=== PATIENT | female | born 1930 | race Caucasian/White ===

== ENCOUNTER 2017-08-12 11:46 | Inpatient (IN) | payer MEDICARE, MEDICAID ==
[~2017-08-12] VITALS: Ht 152.4 cm; Wt 62.6 kg
[~2017-08-12 11:46] MED LIST: ALEVE220 MG PO; AMLODIPINE BES10 MG PO; ASPIRIN 81MG TA81 MG PO; ATORVASTATIN CA20 MG PO; BISOPROLOL 5MG T5 MG PO; BUSPAR 5MG TAB5 MG PO; CARAFATE1 GM PO; CITALOPRAM20 MG PO; CITALOPRAM40 M1 PO; CLARITIN 10MG T10 MG PO; CLEOCIN HCL300 MG PO; Compazine10 MG PO; DOXYCYCLINE100 M1 PO; FLAGYL500 MG PO; FUROSEMIDE 40MG40 MG PO; FUROSEMIDE40 MG PO; HYDROCODONE BIT1 T28 PO; INVANZ1 G1 IM; K-DUR 20MEQ TA20 MEQ PO; KAPIDEX60 MG PO; LASIX40 MG PO; LISINOPRIL 10MG10 MG PO; LISINOPRIL2.5 MG PO; LORAZEPAM0.5 MG PO; LORAZEPAM0.5 MG/TAB PO; LORAZEPAM1 MG/TABLE PO; LORTAB 500 MG-11 TAB PO; LOVENOX 4040 MG/0.1 SC; MACROBID 100MG100 M1 PO; MEDROL 4MG. DOSE4 MG PO; MIRALAX17 GM PO; MULTI VITAMINS1 TAB PO; NAPROSYN 500MG500 MG PO; NEXIUM20 MG PO; NEXIUM40 MG PO; NITROFURANTOIN50 M1 PO; NITROGLYCERIN0.4 MG SL; NORCO 325 MG-101 TAB PO; NYSTATIN 1100000 UNI PO; OMEPRAZOLE20 MG PO; OXYBUTYNIN CHLO10 MG PO; OXYBUTYNIN5 MG PO; PERCOCET 325 MG1 TA3 PO; POTASSIUM CHLO10 ME3 PO; POTASSIUM CHLO20 ME2 PO; PREDNISONE 10MG10 MG PO; PRISTIQ50 MG PO; SKELAXIN 800MG800 MG PO; VICODIN HP 6601 TAB PO; XANAX0.25 MG PO; ZOFRAN ODT8 MG PO
--- NOTE | 2017-08-12 12:15 | Urgent Treatment Center Report ---
History of Present Issue Date/Time Seen by Provider 08/12/17 1211 Visit Reason Pt arrived:Wheelchair Presenting Problem:H/A AND LEFT EAR PAIN Location if Accident: Onset of symptoms date/time:/ or onset unknown for:MEDICAL HX UNKNOWN Have you (or family members/close friends) recently traveled outside the [place]? N If Yes, where/when: Have you had exposure to infectious disease within the past month? TB? Other? Specify: Here w/ daughter. c/o headache and left ear pain today but daughter concerned about generalized weakness over the last week "or so" worsening in the lst 2-3 days. No longer wanting to get out of bed, eating "next to nothing". Occasional cough "using her neb when she wants it. Dysuria once last week "nothing abnormal " pt reports. fould smelling urine but also reported as "typical" per pt. No treatment prior to arrival. [place] too weak to see PCP yesterday. Source patient, family Exam Limitations no limitations ALLERGIES Coded Allergies: Penicillins (I-HIVES 04/20/17) Sulfa (Sulfonamide Antibiotics) (NA-NAUSEA/VOMITING 04/20/17) cephalexin (From KEFLEX) (NA-NAUSEA/VOMITING 04/20/17) ciprofloxacin (From CIPRO) (NA-NAUSEA/VOMITING 04/20/17) codeine (NA-NAUSEA/VOMITING 04/20/17) fexofenadine (From SALVADOR) (NA-NAUSEA/VOMITING 04/20/17) morphine (CONFUSION 04/20/17) promethazine (From PHENERGAN) (04/20/17) Home Medications Active Scripts BISOPROLOL FUMARATE (Bisoprolol 5MG) 10 MG PO DAILY #30 TAB Ref 6 Prov: 04/21/17 Amlodipine Besylate (Amlodipine Besylate) 10 MG PO DAILY #30 TAB Ref 6 Prov: 04/21/17 LISINOPRIL (Lisinopril) 10 MG PO DAILY #30 TAB Ref 5 Prov: 05/11/14 Citalopram Hydrobromide (Citalopram HBr) 40 MG PO DAILY #30 TAB Ref 5 Prov: 05/11/14 Sucralfate (Carafate) 1 GM PO AC #90 TAB Ref 1 Prov: 06/24/15 Furosemide (Furosemide 40MG Tablet) 40 MG PO MWF PRN DIURETIC 30 Days Ref 5 Prov: 04/09/16 Reported Medications Ondansetron (Zofran 8MG Odt) 8 MG PO Q8HP NITROGLYCERIN (Nitrostat) 0.4 MG SL [id number] PRN CHEST PAIN POTASSIUM CHL (Potassium Chloride) 1 TABS PO MWF Dexlansoprazole (Dexilant) 60 MG PO DAILY Loratadine (Claritin 10MG) 10 MG PO DAILY OXYCODONE 7.5MG/[id number] (Oxycodon-Acetaminophen 7.5-325) 1 TAB PO Q6HP PRN PAIN MANAGEMENT Lorazepam (Lorazepam 1MG) 1 MG PO BID History Medical History General CAD? Yes Angina: Yes [place]: Yes Hypertension? Yes Hyperlipidemia? Yes CHF? No DVT? Yes PE? No COPD? No Asthma? Yes Anemia? No GERD? Yes Gastric ulcers? No GI Bleed? No Hernia? Yes Thyroid Problems? No Hypothyroidism? No CVA? Yes Seizures? No Diabetes? No Insulin Dependent: No Insulin Pump: No Home FSBS? No Renal Insuffiency? No UTI? Yes Stones? No BPH? No GB Disease: Yes Nephritic Syndrome? No Asplenia? No Hepatitis? No Sickle Cell Disease? No Arthritis? Yes Migraines? Yes Cataracts? Yes Glaucoma? No MRSA? Yes HIV? No TB? No Anxiety? Yes Depression? 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 HX DT/Tetanus 1-4 Years Ago Flu 2015- Flu Season Pneumonia Received In Past Surgical Hx Previous Surgery?Y BACK SURGERY JOHN[place] KNEE REPLACEMENT CHOLECYSTECTOMY Appendix HEART CATH 2008 ROTATOR CUFF REPAIR LEFT CATARACT REMOVAL JOHNATHON Spleen REMOVED OOPHRECTOMY/SALPINGECTIOM BILAT HIP BACK-COMPRESSION FX Family History Family HX Diabetes No CAD Yes Hypertension Yes Hyperlipidemia Yes Cancer Yes TB No Social History Smoking Hx Smoker: Never Smoker Tobacco: No Alcohol Alcohol: No Review of Systems All Other Systems Reviewed and Negative Constitutional see HPI, denies fever ENT see HPI, nose discharge. denies: ear discharge, nose congestion, throat pain. Respiratory see HPI, denies shortness of breath, denies wheezing Cardiovascular denies chest pain Gastrointestinal denies no symptoms reported Genitourinary see HPI. Musculoskeletal other ("I just hurt all over") Skin denies rash Psychiatric/Neurological see HPI Physical Exam Vital Signs Vital Signs Date Time Temp Pulse Resp B/P Pulse O2 O2 Flow FiO2 Ox Delivery Rate 08/12 1154 97.8 77 29 167/62 96 General Appearance no apparent distress, appears weak and fatigued, seated in wheelchair Ear, Nose, Throat normal ENT inspection (x/ hearing aid right ear), difficulty hearing Respiratory Status Yes: chest symmetrical. No: respiratory distress, productive cough, non productive cough. Lung Sounds anterior: lungs clear. posterior: lungs clear. bilateral: lungs clear. Cardiovascular regular rate/rhythm, no peripheral edema, no murmur Neurologic alert Mental status normal mood/affect Skin normal color, warm/dry Lymphatic no adenopathy Medical Decision Making LABS/Meds/Orders Pt receiving controlled substance in ED? No Progress [facility] Progress Notes Date 08/12/17 Time 1230 Comment Spoke to pt and daughter about concerning symptoms and need for more extensive work-up. Daughter agreeable to transfer to ER. report called to ZULAY Aguayo MD. Room 6 available. Departure Departure Time of Disposition 1231 Disposition Still a Patient Clinical Impression Primary Impression: Generalized weakness Condition STABLE Comments Transfer to ER for full evaluation at 1236
--- NOTE | 2017-08-12 12:15 | Urgent Treatment Center Report ---
History of Present Issue Date/Time Seen by Provider 08/12/17 1211 Visit Reason Pt arrived:Wheelchair Presenting Problem:H/A AND LEFT EAR PAIN Location if Accident: Onset of symptoms date/time:/ or onset unknown for:MEDICAL HX UNKNOWN Have you (or family members/close friends) recently traveled outside the [place]? N If Yes, where/when: Have you had exposure to infectious disease within the past month? TB? Other? Specify: Here w/ daughter. c/o headache and left ear pain today but daughter concerned about generalized weakness over the last week "or so" worsening in the lst 2-3 days. No longer wanting to get out of bed, eating "next to nothing". Occasional cough "using her neb when she wants it. Dysuria once last week "nothing abnormal " pt reports. fould smelling urine but also reported as "typical" per pt. No treatment prior to arrival. [place] too weak to see PCP yesterday. Source patient, family Exam Limitations no limitations ALLERGIES Coded Allergies: Penicillins (I-HIVES 04/20/17) Sulfa (Sulfonamide Antibiotics) (NA-NAUSEA/VOMITING 04/20/17) cephalexin (From KEFLEX) (NA-NAUSEA/VOMITING 04/20/17) ciprofloxacin (From CIPRO) (NA-NAUSEA/VOMITING 04/20/17) codeine (NA-NAUSEA/VOMITING 04/20/17) fexofenadine (From SALVADOR) (NA-NAUSEA/VOMITING 04/20/17) morphine (CONFUSION 04/20/17) promethazine (From PHENERGAN) (04/20/17) Home Medications Active Scripts BISOPROLOL FUMARATE (Bisoprolol 5MG) 10 MG PO DAILY #30 TAB Ref 6 Prov: 04/21/17 Amlodipine Besylate (Amlodipine Besylate) 10 MG PO DAILY #30 TAB Ref 6 Prov: 04/21/17 LISINOPRIL (Lisinopril) 10 MG PO DAILY #30 TAB Ref 5 Prov: 05/11/14 Citalopram Hydrobromide (Citalopram HBr) 40 MG PO DAILY #30 TAB Ref 5 Prov: 05/11/14 Sucralfate (Carafate) 1 GM PO AC #90 TAB Ref 1 Prov: 06/24/15 Furosemide (Furosemide 40MG Tablet) 40 MG PO MWF PRN DIURETIC 30 Days Ref 5 Prov: 04/09/16 Reported Medications Ondansetron (Zofran 8MG Odt) 8 MG PO Q8HP NITROGLYCERIN (Nitrostat) 0.4 MG SL [id number] PRN CHEST PAIN POTASSIUM CHL (Potassium Chloride) 1 TABS PO MWF Dexlansoprazole (Dexilant) 60 MG PO DAILY Loratadine (Claritin 10MG) 10 MG PO DAILY OXYCODONE 7.5MG/[id number] (Oxycodon-Acetaminophen 7.5-325) 1 TAB PO Q6HP PRN PAIN MANAGEMENT Lorazepam (Lorazepam 1MG) 1 MG PO BID History Medical History General CAD? Yes Angina: Yes [place]: Yes Hypertension? Yes Hyperlipidemia? Yes CHF? No DVT? Yes PE? No COPD? No Asthma? Yes Anemia? No GERD? Yes Gastric ulcers? No GI Bleed? No Hernia? Yes Thyroid Problems? No Hypothyroidism? No CVA? Yes Seizures? No Diabetes? No Insulin Dependent: No Insulin Pump: No Home FSBS? No Renal Insuffiency? No UTI? Yes Stones? No BPH? No GB Disease: Yes Nephritic Syndrome? No Asplenia? No Hepatitis? No Sickle Cell Disease? No Arthritis? Yes Migraines? Yes Cataracts? Yes Glaucoma? No MRSA? Yes HIV? No TB? No Anxiety? Yes Depression? 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 HX DT/Tetanus 1-4 Years Ago Flu 2015- Flu Season Pneumonia Received In Past Surgical Hx Previous Surgery?Y BACK SURGERY [facility] KNEE REPLACEMENT CHOLECYSTECTOMY Appendix HEART CATH 2008 ROTATOR CUFF REPAIR LEFT CATARACT REMOVAL JOHNATHON Spleen REMOVED OOPHRECTOMY/SALPINGECTIOM BILAT HIP BACK-COMPRESSION FX Family History Family HX Diabetes No CAD Yes Hypertension Yes Hyperlipidemia Yes Cancer Yes TB No Social History Smoking Hx Smoker: Never Smoker Tobacco: No Alcohol Alcohol: No Review of Systems All Other Systems Reviewed and Negative Constitutional see HPI, denies fever ENT see HPI, nose discharge. denies: ear discharge, nose congestion, throat pain. Respiratory see HPI, denies shortness of breath, denies wheezing Cardiovascular denies chest pain Gastrointestinal denies no symptoms reported Genitourinary see HPI. Musculoskeletal other ("I just hurt all over") Skin denies rash Psychiatric/Neurological see HPI Physical Exam Vital Signs Vital Signs Date Time Temp Pulse Resp B/P Pulse O2 O2 Flow FiO2 Ox Delivery Rate 08/12 1154 97.8 77 29 167/62 96 General Appearance no apparent distress, appears weak and fatigued, seated in wheelchair Ear, Nose, Throat normal ENT inspection (x/ hearing aid right ear), difficulty hearing Respiratory Status Yes: chest symmetrical. No: respiratory distress, productive cough, non productive cough. Lung Sounds anterior: lungs clear. posterior: lungs clear. bilateral: lungs clear. Cardiovascular regular rate/rhythm, no peripheral edema, no murmur Neurologic alert Mental status normal mood/affect Skin normal color, warm/dry Lymphatic no adenopathy Medical Decision Making LABS/Meds/Orders Pt receiving controlled substance in ED? No Progress [facility] Progress Notes Date 08/12/17 Time 1230 Comment Spoke to pt and daughter about concerning symptoms and need for more extensive work-up. Daughter agreeable to transfer to ER. report called to ZLUAY Aguayo MD. Room 6 available. Departure Departure Time of Disposition 1231 Disposition Still a Patient Clinical Impression Primary Impression: Generalized weakness Condition STABLE Comments Transfer to ER for full evaluation at 1236
[2017-08-12 12:38] VITALS: BP 153/65
--- NOTE | 2017-08-12 12:55 | Emergency Room Report ---
History of Present Illness Time Seen by 1250 Presenting Problem in Triage Pt arrived:Walked Presenting Problem:COLD SYMPTOMS,. 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 N Clinical Suspician of Infection? N Mental Status: 1 - Regular (Normal Baseline) Sepsis Risk:Low Sepsis Risk Have you (or family members/close friends) recently traveled outside the [place]? N If Yes, where/when: Have you had exposure to infectious disease within the past month? TB? Other? Specify: 87 years old white female with chronic complaining of weakness. She was seen earlier today the urgent care because of left earache. She expressed her complain of ongoing weakness chronic nausea and decreased appetite. She was brought to the main ED for workup. She denies having chest pain abdominal pain vomiting diarrhea hematemesis coffee-ground emesis and melanotic stool. She has a baseline shortness of air. She had a pacemaker placed 2-3 months ago and they thought it would increase her stamina but she remained to be weak like today. Source patient, RN notes reviewed, family, old records Exam Limitations no limitations ALLERGIES Coded Allergies: Penicillins (I-HIVES 04/20/17) Sulfa (Sulfonamide Antibiotics) (NA-NAUSEA/VOMITING 04/20/17) cephalexin (From KEFLEX) (NA-NAUSEA/VOMITING 04/20/17) ciprofloxacin (From CIPRO) (NA-NAUSEA/VOMITING 04/20/17) codeine (NA-NAUSEA/VOMITING 04/20/17) fexofenadine (From SALVADOR) (NA-NAUSEA/VOMITING 04/20/17) morphine (CONFUSION 04/20/17) promethazine (From PHENERGAN) (04/20/17) Home Medications Active Scripts BISOPROLOL FUMARATE (Bisoprolol 5MG) 10 MG PO DAILY #30 TAB Ref 6 Prov: 04/21/17 Amlodipine Besylate (Amlodipine Besylate) 10 MG PO DAILY #30 TAB Ref 6 Prov: 04/21/17 LISINOPRIL (Lisinopril) 10 MG PO DAILY #30 TAB Ref 5 Prov: 05/11/14 Citalopram Hydrobromide (Citalopram HBr) 40 MG PO DAILY #30 TAB Ref 5 Prov: 05/11/14 Sucralfate (Carafate) 1 GM PO AC #90 TAB Ref 1 Prov: 06/24/15 Furosemide (Furosemide 40MG Tablet) 40 MG PO MWF PRN DIURETIC 30 Days Ref 5 Prov: 04/09/16 Reported Medications Ondansetron (Zofran 8MG Odt) 8 MG PO Q8HP NITROGLYCERIN (Nitrostat) 0.4 MG SL [id number] PRN CHEST PAIN POTASSIUM CHL (Potassium Chloride) 1 TABS PO MWF Dexlansoprazole (Dexilant) 60 MG PO DAILY Loratadine (Claritin 10MG) 10 MG PO DAILY OXYCODONE 7.5MG/[id number] (Oxycodon-Acetaminophen 7.5-325) 1 TAB PO Q6HP PRN PAIN MANAGEMENT Lorazepam (Lorazepam 1MG) 1 MG PO BID History Medical History General CAD? Yes Angina: Yes [place]: Yes Hypertension? Yes Hyperlipidemia? Yes CHF? No DVT? Yes PE? No COPD? No Asthma? Yes Anemia? No GERD? Yes Gastric ulcers? No GI Bleed? No Hernia? Yes Thyroid Problems? No Hypothyroidism? No CVA? Yes Seizures? No Diabetes? No Insulin Dependent: No Insulin Pump: No Home FSBS? No Renal Insuffiency? No End Stage Renal Disease? No UTI? Yes Stones? No BPH? No GB Disease: Yes Nephritic Syndrome? No Asplenia? No Hepatitis? No Sickle Cell Disease? No Arthritis? Yes Migraines? Yes Cataracts? Yes Glaucoma? No MRSA? Yes HIV? No TB? No Anxiety? Yes Depression? 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 Hx Ped.Immunizations UTD Yes DT/Tetanus 1-4 Years Ago Flu 2015-FSN Pneumonia Received In Past Surgical Hx Previous Surgery?Y BACK SURGERY JOHN[place]ON KNEE REPLACEMENT CHOLECYSTECTOMY Appendix HEART CATH 2009 ROTATOR CUFF REPAIR LEFT CATARACT REMOVAL JOHNATHON Spleen REMOVED OOPHRECTOMY/SALPINGECTIOM BILAT HIP BACK-COMPRESSION FX Family History Family Hx Diabetes No CAD Yes Hypertension Yes Hyperlipidemia Yes Cancer Yes TB No Social History Smoking Hx Smoker: Former Smoker Tobacco: No Type Cigarettes Are you/the child exposed to second-hand smoke: No Alcohol Alcohol: No Review of Systems All Other Systems Reviewed and Negative Constitutional denies see HPI Eyes no symptoms reported ENT no symptoms reported. Respiratory see HPI, shortness of breath (base line ) Cardiovascular no symptoms reported Gastrointestinal see HPI, nausea Genitourinary no symptoms reported. Musculoskeletal no symptoms reported Skin no symptoms reported Psychiatric/Neurological no symptoms reported Physical Exam Vital Signs Vital Signs Date Time Temp Pulse Resp B/P Pulse O2 O2 Flow FiO2 Ox Delivery Rate 08/12 1634 72 18 157/72 96 08/12 1327 74 18 147/68 96 08/12 1238 98.3 75 18 153/65 96 08/12 1154 97.8 77 29 167/62 96 She is ambulating with assistance. (Fam DAVIS,[facility]) - WBC >12,000 or <4,000 or 10% bands? 2 or more SIRS Criteria Met? B/P:153/65 MAP:94 Creatinine >2.0? UA output<0.5ml/kg/hr for 2 hrs? Platelet count >100,000? Lactate >2.0mmol/1? INR >1.2 or PTT > than 60 sec? Evidence of Organ Dysfunction? Provider documented clinical suspician of infection? N Sepsis Criteria Count: 0 Sepsis Risk: Low Sepsis Risk General Appearance normal appearance, WD/WN, no apparent distress Eye Exam - bilateral eye normal exam, bilateral eye PERRL, bilateral eye EOMI Ear, Nose, Throat hearing grossly normal, normal ENT inspection Neck normal inspection, non-tender, supple, full range of motion Respiratory Status Yes: trachea midline, chest symmetrical, non tender chest. No: respiratory distress. Lung Sounds bilateral: normal breath sounds, lungs clear. Cardiovascular normal exam, regular rate/rhythm, no peripheral edema, no gallop, no JVD, no murmur, no rub, normal peripheral pulses Gastrointestinal normal bowel sounds, normal exam, non tender, soft, no organomegaly, no guarding, no rebound, the patient's has well healed scars of prior gallbladder and a splenectomy surgery. 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 No Results/Orders Laboratory Tests 08/12/17 1300: Urine Color YELLOW, Urine Appearance CLEAR, Urine pH 6.5, Ur Specific [place] 1.010, Urine Protein TRACE H, Urine Ketones NEGATIVE, Urine Blood 2+ H, Urine Nitrate NEGATIVE, Urine Bilirubin NEGATIVE, Urine Urobilinogen 2.0, Ur Leukocyte Esterase NEGATIVE, Urine RBC OCC, Urine WBC NONE, Ur Squamous Epith Cells OCC, Urine Bacteria NONE, Urine Glucose NEGATIVE 08/12/17 1255: Sodium 140, Potassium 4.3, Chloride 103, Carbon Dioxide 31, BUN 13, Creatinine 0.7, Estimated Creat Clear 52, Estimated GFR (MDRD) 79, Glucose 93, Calcium 8.9, Total Bilirubin 0.7, AST 15, ALT 17, Alkaline Phosphatase 87, Troponin I 0.02, B -Natriuretic Peptide 1740 H, Total Protein 7.0, Albumin 3.1 L, Globulin 3.9 H , Albumin/Globulin Ratio 0.8 L, Lipase 83, WBC 7.8, RBC 3.86 L, Hgb 12.8, Hct 39.4, MCV 101.9 H, RDW 13.1, Plt Count 273, MPV 8.2, Gran % 56.8, Gran # 4.4, Lymphocytes % 24.4, Monocytes % 11.2 H, Eosinophils % 6.3, Basophils % 1.5, Lymphocytes # 1.9, Monocytes # 0.9, Eosinophils # 0.5 H, Basophils # 0.1, PUBS MCHC 32.6, MCH 33.2 H 08/12/17 1250: Stool Occult Blood NEGATIVE Current Medication Orders Sig/Dorys Start time Last Medication Dose Route Stop Time Status Admin Bisoprolol Fumarate 10 MG DAILY 08/13 0900 AC PO Furosemide 40 MG BID 08/12 2100 AC IV Lisinopril 10 MG BID 08/12 2100 AC PO Potassium Chloride 0 .STK-MED ONE 08/12 1618 DC PO Potassium Chloride 20 MEQ DAILY 08/12 1559 AC 08/12 PO 1619 Iopamidol 75 ML ONCE ONE 08/12 1430 DC 08/12 IV 08/12 1431 1426 Sodium Chloride 10 ML ONCE ONE 08/12 1430 DC 08/12 IV 08/12 1431 1426 Diatrizoate Meglum/ 30 ML ONCE ONE 08/12 1345 DC 08/12 Diatrizoate Sod PO 08/12 1346 1336 Diatrizoate Meglum/ 0 .STK-MED ONE 08/12 1331 DC Diatrizoate Sod .ROUTE Orders Procedure Date/time Status BRAIN NATRIURETIC PEPTIDE 08/13 1600 Active BASIC METABOLIC PROFILE 08/13 1600 Active DIET-NOTHING BY MOUTH 08/12 D Active Decision to admit 08/12 1619 Active CHEST-AP VIEW ONLY 08/[address] ABD/PELVIS REQ 08/12 1327 Complete URINALYSIS/COMPLETE 08/12 1256 Complete 12 LEAD EKG-ACACIA (INITIAL) 08/12 1250 Active ELECTROCARDIOGRAM REQUEST 08/12 1249 Active TROPONIN I 08/12 1249 Complete STOOL OCCULT BLOOD 08/12 1249 Complete LIPASE 08/12 1249 Complete CBC WITH AUTO DIFF 08/12 124 Complete CHEM 12 PROFILE 08/12 1249 Complete BRAIN NATRIURETIC PEPTIDE 08/12 1249 Complete CM/EKG 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 Murphy, her electrocardiogram shows paced. She was admitted by Dr. Nath on April 09, 2016 because of similar symptoms. She underwent an EGD by H nonerosive gastritis. After obtaining a CT scan of the abdomen and pelvis the patient was found to have pulmonary vascular congestion and cardiomegaly and a RIGHT pleural effusion , her BNP was 1740. [address] Murphy her numerical control router operator who advised for admission and obtain a [address] Aggarwal for admission. 1630 Dr Jordan jawbone puller and accepted the patient for admission. Discharge Counseling Counseled pt/family regarding diagnosis, test results, medications/RX, home care, follow up needs Prescriptions Current Visit Scripts Metoclopramide Hcl (Reglan) 5 MG PO AC #28 TAB Ref 1 ED Critical Care Critical Care No at 1637
--- NOTE | 2017-08-12 12:55 | Emergency Room Report ---
History of Present Illness Time Seen by 1250 Presenting Problem in Triage Pt arrived:Walked Presenting Problem:COLD SYMPTOMS,. 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 N Clinical Suspician of Infection? N Mental Status: 1 - Regular (Normal Baseline) Sepsis Risk:Low Sepsis Risk Have you (or family members/close friends) recently traveled outside the [place]? N If Yes, where/when: Have you had exposure to infectious disease within the past month? TB? Other? Specify: 87 years old white female with chronic complaining of weakness. She was seen earlier today the urgent care because of left earache. She expressed her complain of ongoing weakness chronic nausea and decreased appetite. She was brought to the main ED for workup. She denies having chest pain abdominal pain vomiting diarrhea hematemesis coffee-ground emesis and melanotic stool. She has a baseline shortness of air. She had a pacemaker placed 2-3 months ago and they thought it would increase her stamina but she remained to be weak like today. Source patient, RN notes reviewed, family, old records Exam Limitations no limitations ALLERGIES Coded Allergies: Penicillins (I-HIVES 04/20/17) Sulfa (Sulfonamide Antibiotics) (NA-NAUSEA/VOMITING 04/20/17) cephalexin (From KEFLEX) (NA-NAUSEA/VOMITING 04/20/17) ciprofloxacin (From CIPRO) (NA-NAUSEA/VOMITING 04/20/17) codeine (NA-NAUSEA/VOMITING 04/20/17) fexofenadine (From SALVADOR) (NA-NAUSEA/VOMITING 04/20/17) morphine (CONFUSION 04/20/17) promethazine (From PHENERGAN) (04/20/17) Home Medications Active Scripts BISOPROLOL FUMARATE (Bisoprolol 5MG) 10 MG PO DAILY #30 TAB Ref 6 Prov: 04/21/17 Amlodipine Besylate (Amlodipine Besylate) 10 MG PO DAILY #30 TAB Ref 6 Prov: 04/21/17 LISINOPRIL (Lisinopril) 10 MG PO DAILY #30 TAB Ref 5 Prov: 05/11/14 Citalopram Hydrobromide (Citalopram HBr) 40 MG PO DAILY #30 TAB Ref 5 Prov: 05/11/14 Sucralfate (Carafate) 1 GM PO AC #90 TAB Ref 1 Prov: 06/24/15 Furosemide (Furosemide 40MG Tablet) 40 MG PO MWF PRN DIURETIC 30 Days Ref 5 Prov: 04/09/16 Reported Medications Ondansetron (Zofran 8MG Odt) 8 MG PO Q8HP NITROGLYCERIN (Nitrostat) 0.4 MG SL [id number] PRN CHEST PAIN POTASSIUM CHL (Potassium Chloride) 1 TABS PO MWF Dexlansoprazole (Dexilant) 60 MG PO DAILY Loratadine (Claritin 10MG) 10 MG PO DAILY OXYCODONE 7.5MG/[id number] (Oxycodon-Acetaminophen 7.5-325) 1 TAB PO Q6HP PRN PAIN MANAGEMENT Lorazepam (Lorazepam 1MG) 1 MG PO BID History Medical History General CAD? Yes Angina: Yes [place]: Yes Hypertension? Yes Hyperlipidemia? Yes CHF? No DVT? Yes PE? No COPD? No Asthma? Yes Anemia? No GERD? Yes Gastric ulcers? No GI Bleed? No Hernia? Yes Thyroid Problems? No Hypothyroidism? No CVA? Yes Seizures? No Diabetes? No Insulin Dependent: No Insulin Pump: No Home FSBS? No Renal Insuffiency? No End Stage Renal Disease? No UTI? Yes Stones? No BPH? No GB Disease: Yes Nephritic Syndrome? No Asplenia? No Hepatitis? No Sickle Cell Disease? No Arthritis? Yes Migraines? Yes Cataracts? Yes Glaucoma? No MRSA? Yes HIV? No TB? No Anxiety? Yes Depression? 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 Hx Ped.Immunizations UTD Yes DT/Tetanus 1-4 Years Ago Flu 2015-FSN Pneumonia Received In Past Surgical Hx Previous Surgery?Y BACK SURGERY JOHNATHON KNEE REPLACEMENT CHOLECYSTECTOMY Appendix HEART CATH 2009 ROTATOR CUFF REPAIR LEFT CATARACT REMOVAL JOHNATHON Spleen REMOVED OOPHRECTOMY/SALPINGECTIOM BILAT HIP BACK-COMPRESSION FX Family History Family Hx Diabetes No CAD Yes Hypertension Yes Hyperlipidemia Yes Cancer Yes TB No Social History Smoking Hx Smoker: Former Smoker Tobacco: No Type Cigarettes Are you/the child exposed to second-hand smoke: No Alcohol Alcohol: No Review of Systems All Other Systems Reviewed and Negative Constitutional denies see HPI Eyes no symptoms reported ENT no symptoms reported. Respiratory see HPI, shortness of breath (base line ) Cardiovascular no symptoms reported Gastrointestinal see HPI, nausea Genitourinary no symptoms reported. Musculoskeletal no symptoms reported Skin no symptoms reported Psychiatric/Neurological no symptoms reported Physical Exam Vital Signs Vital Signs Date Time Temp Pulse Resp B/P Pulse O2 O2 Flow FiO2 Ox Delivery Rate 08/12 1634 72 18 157/72 96 08/12 1327 74 18 147/68 96 08/12 1238 98.3 75 18 153/65 96 08/12 1154 97.8 77 29 167/62 96 She is ambulating with assistance. (Fam DAVIS,[facility]) - WBC >12,000 or <4,000 or 10% bands? 2 or more SIRS Criteria Met? B/P:153/65 MAP:94 Creatinine >2.0? UA output<0.5ml/kg/hr for 2 hrs? Platelet count >100,000? Lactate >2.0mmol/1? INR >1.2 or PTT > than 60 sec? Evidence of Organ Dysfunction? Provider documented clinical suspician of infection? N Sepsis Criteria Count: 0 Sepsis Risk: Low Sepsis Risk General Appearance normal appearance, WD/WN, no apparent distress Eye Exam - bilateral eye normal exam, bilateral eye PERRL, bilateral eye EOMI Ear, Nose, Throat hearing grossly normal, normal ENT inspection Neck normal inspection, non-tender, supple, full range of motion Respiratory Status Yes: trachea midline, chest symmetrical, non tender chest. No: respiratory distress. Lung Sounds bilateral: normal breath sounds, lungs clear. Cardiovascular normal exam, regular rate/rhythm, no peripheral edema, no gallop, no JVD, no murmur, no rub, normal peripheral pulses Gastrointestinal normal bowel sounds, normal exam, non tender, soft, no organomegaly, no guarding, no rebound, the patient's has well healed scars of prior gallbladder and a splenectomy surgery. abdomen is obese soft benign nontender no guarding no rigidity no rebound Back normal inspection, no CVA tenderness, no vertebral tenderness Extremities non-tender, normal range of motion, normal inspection Rectal normal exam Neurologic alert, supervisor channel process II-XII nml as tested, normal exam, oriented x 3 Reflexes Reflexes normal Yes Mental status normal mood/affect Skin intact, normal color, warm/dry Lymphatic no adenopathy Medical Decision Making LABS/Meds/Orders Pt receiving controlled substance in ED? No Results/Orders Laboratory Tests 08/12/17 1300: Urine Color YELLOW, Urine Appearance CLEAR, Urine pH 6.5, Ur Specific [place] 1.010, Urine Protein TRACE H, Urine Ketones NEGATIVE, Urine Blood 2+ H, Urine Nitrate NEGATIVE, Urine Bilirubin NEGATIVE, Urine Urobilinogen 2.0, Ur Leukocyte Esterase NEGATIVE, Urine RBC OCC, Urine WBC NONE, Ur Squamous Epith Cells OCC, Urine Bacteria NONE, Urine Glucose NEGATIVE 08/12/17 1255: Sodium 140, Potassium 4.3, Chloride 103, Carbon Dioxide 31, BUN 13, Creatinine 0.7, Estimated Creat Clear 52, Estimated GFR (MDRD) 79, Glucose 93, Calcium 8.9, Total Bilirubin 0.7, AST 15, ALT 17, Alkaline Phosphatase 87, Troponin I 0.02, B -Natriuretic Peptide 1740 H, Total Protein 7.0, Albumin 3.1 L, Globulin 3.9 H , Albumin/Globulin Ratio 0.8 L, Lipase 83, WBC 7.8, RBC 3.86 L, Hgb 12.8, Hct 39.4, MCV 101.9 H, RDW 13.1, Plt Count 273, MPV 8.2, Gran % 56.8, Gran # 4.4, Lymphocytes % 24.4, Monocytes % 11.2 H, Eosinophils % 6.3, Basophils % 1.5, Lymphocytes # 1.9, Monocytes # 0.9, Eosinophils # 0.5 H, Basophils # 0.1, PUBS MCHC 32.6, MCH 33.2 H 08/12/17 1250: Stool Occult Blood NEGATIVE Current Medication Orders Sig/Dorys Start time Last Medication Dose Route Stop Time Status Admin Bisoprolol Fumarate 10 MG DAILY 08/13 0900 AC PO Furosemide 40 MG BID 08/12 2100 AC IV Lisinopril 10 MG BID 08/12 2100 AC PO Potassium Chloride 0 .STK-MED ONE 08/12 1618 DC PO Potassium Chloride 20 MEQ DAILY 08/12 1559 AC 08/12 PO 1619 Iopamidol 75 ML ONCE ONE 08/12 1430 DC 08/12 IV 08/12 1431 1426 Sodium Chloride 10 ML ONCE ONE 08/12 1430 DC 08/12 IV 08/12 1431 1426 Diatrizoate Meglum/ 30 ML ONCE ONE 08/12 1345 DC 08/12 Diatrizoate Sod PO 08/12 1346 1336 Diatrizoate Meglum/ 0 .STK-MED ONE 08/12 1331 DC Diatrizoate Sod .ROUTE Orders Procedure Date/time Status BRAIN NATRIURETIC PEPTIDE 08/13 1600 Active BASIC METABOLIC PROFILE 08/13 1600 Active DIET-NOTHING BY MOUTH 08/12 D Active Decision to admit 08/12 1619 Active CHEST-AP VIEW ONLY 08/[address] ABD/PELVIS REQ 08/12 1327 Complete URINALYSIS/COMPLETE 08/12 1256 Complete 12 LEAD EKG-ACACIA (INITIAL) 08/12 1250 Active ELECTROCARDIOGRAM REQUEST 08/12 1249 Active TROPONIN I 08/12 1249 Complete STOOL OCCULT BLOOD 08/12 1249 Complete LIPASE 08/12 1249 Complete CBC WITH AUTO DIFF 08/12 124 Complete CHEM 12 PROFILE 08/12 1249 Complete BRAIN NATRIURETIC PEPTIDE 08/12 1249 Complete CM/EKG CM/licensed acupuncturist Rhythm paced rhythm 77/minutes Departure Departure Time of Disposition 1506 Disposition Still a Patient Clinical Impression Primary Impression: Congestive heart failure Secondary Impressions: Cardiomegaly, Constipation, Non Hodgkin's lymphoma, Pleural effusion, Renal cyst Condition STABLE Referrals Portillo DAVIS,Maury Rodas Additional Instructions I extensively reviewed her medical history she she underwent pacemaker placement on April [address] Murphy, her electrocardiogram shows paced. She was admitted by Dr. Nath on April 09, 2016 because of similar symptoms. She underwent an EGD by H nonerosive gastritis. After obtaining a CT scan of the abdomen and pelvis the patient was found to have pulmonary vascular congestion and cardiomegaly and a RIGHT pleural effusion , her BNP was 1740. [address] Murphy her mortuary beautician who advised for admission and obtain a [address] Aggarwal for admission. 1630 Dr Jordan information technology advisor and accepted the patient for admission. Discharge Counseling Counseled pt/family regarding diagnosis, test results, medications/RX, home care, follow up needs Prescriptions Current Visit Scripts Metoclopramide Hcl (Reglan) 5 MG PO AC #28 TAB Ref 1 ED Critical Care Critical Care No at 1637
[2017-08-12 12:59] LABS: STOOL OCCULT BLOOD NEGATIVE (NEG)
[2017-08-12 13:10] LABS: HEMOGLOBIN 12.8 g/dL (12.2-16.2); LYMPH # 1.9 K/mm3 (0.7-4.5); LYMPH % 24.4 % (10-50.0)
[2017-08-12] MEDS ORDERED: REGLAN 5MG TABLE5 MG PO (13:22)
[2017-08-12 13:26] LABS: URINE BILIRUBIN - DIPSTICK NEGATIVE (NEG); URINE BLOOD 2+ (NEG)
[2017-08-12 13:36] LABS: URINE SQUAMOUS CELLS OCC #/hpf (0-5)
--- NOTE | 2017-08-12 14:41 | RADIOLOGY REPORT PS360 ---
CT ABD PELVIS W/ CONTRAST COMPARISON: CT scan abdomen pelvis 02/21/2016 HISTORY: History of non-Hodgkin's lymphoma, post splenectomy, abdominal pain and nausea TECHNIQUE: Multiaxial scans obtained from hemidiaphragms the pelvic floor and were performed with IV and oral contrast. Sagittal and coronal reformats were evaluated as well. FINDINGS: Scans through the lower chest show small to moderate size right pleural effusion with some fluid in the major fissure as well. There is gross generalized cardiomegaly and mild vascular congestion and I suspect chronic congestive heart failure. The liver and stomach and pancreas appear grossly normal. There is been a previous splenectomy and cholecystectomy. There is a very large exophytic cyst midpole right kidney measuring 8.4 x 8.4 x 7.3 cm. This is stable and basely unchanged in appearance from the previous study. The left kidney shows normal function. Small bowel is unremarkable. There is a moderate amount stool in ascending and transverse colon. There is large amount stool in the lower sigmoid colon and rectum and I question the possibility of a fecal fraction within the rectum. The uterus is small and atrophic. The urinary bladder is completely decompressed. There is no free fluid in pelvis. There are bilateral hip prosthesis causing marked streak artifact crossing the pelvis. There is been previous fusion of L3 and L4. IMPRESSION: 1. Generalized cardio megaly with right pleural effusion and mild pulmonary congestion and findings are suggestive chronic congestive heart failure 2. Stable large benign-appearing cortical cyst right kidney 3. Possible fecal impaction 4. Orthopedic hardware lower lumbar spine and bilateral hips as described. The rectum
--- NOTE | 2017-08-12 16:01 | CONSULT NOTE ---
Standard Demographics Patient Demo Date of Consultation: 08/12/17 Referring Provider: Rivrea Aggarwal MD Reason for Consultation: CHF PRIMARY DIAGNOSIS: SOA Problem list Problem list: 1. Moderate to severe AI by echo 2. SSS A. PPM placed, 04/2017 3. Chronic A. fib, not anticoagulation candidate due to history of recurrent falls. 4. History of DVT in 5. Previous remote VA A. Bebeto myoview, no ischemia, 03/2017, with normal LVEF. 6. History of Depression 7. History of Non-Hodgkins Lymphoma 8. Hypertension 9. Hyperlipidemia 10. History of asthma History of present illness: History of present illness: 87-year-old white female seen in the emergency department for progressive shortness of breath. Patient has had complaints of shortness of breath since her pacemaker was implanted earlier this year however symptoms have been increasing over the last several days. She denies any chest pain or pressure. Electrocardiogram in the emergency department shows ventricular pacing with underlying atrial fibrillation. Initial cardiac enzyme is normal. Patient had a BNP of [address] of the abdomen showing RIGHT pleural effusion and pulmonary congestion, consistent with chronic congestive heart failure. Cardiology consulted for evaluation. Patient has a history of moderate to severe aortic insufficiency by previous echocardiogram. An echocardiogram has been ordered. Past Medical History: General: Hypertension Yes CVA Yes Seizures No TB No COPD No Asthma Yes Diabetes No Insulin Dependent No Insulin Pump No Angina Yes VA Yes Hyperlipidemia Yes Urinary Yes Cancer Yes Rheumatic H.D. No Ulcers Yes MRSA Yes GB Disease Yes Other BACK PROBLEMS,SPOTSIN CLAIRE Past Surgical HX: Previous Surgery?Y BACK SURGERY JOHNATHON KNEE REPLACEMENT CHOLECYSTECTOMY Appendix HEART CATH 2008 ROTATOR CUFF REPAIR LEFT CATARACT REMOVAL JOHNATHON Spleen REMOVED OOPHRECTOMY/SALPINGECTIOM BILAT HIP BACK-COMPRESSION FX Allergies Coded Allergies: Penicillins (I-HIVES 04/20/17) Sulfa (Sulfonamide Antibiotics) (NA-NAUSEA/VOMITING 04/20/17) cephalexin (From KEFLEX) (NA-NAUSEA/VOMITING 04/20/17) ciprofloxacin (From CIPRO) (NA-NAUSEA/VOMITING 04/20/17) codeine (NA-NAUSEA/VOMITING 04/20/17) fexofenadine (From SALVADOR) (NA-NAUSEA/VOMITING 04/20/17) morphine (CONFUSION 04/20/17) promethazine (From PHENERGAN) (04/20/17) Home medications: Active Scripts BISOPROLOL FUMARATE (Bisoprolol 5MG) 10 MG PO DAILY #30 TAB Ref 6 Prov: 04/21/17 LISINOPRIL (Lisinopril) 10 MG PO DAILY #30 TAB Ref 5 Prov: 05/11/14 Citalopram Hydrobromide (Citalopram HBr) 40 MG PO DAILY #30 TAB Ref 5 Prov: 05/11/14 Sucralfate (Carafate) 1 GM PO AC #90 TAB Ref 1 Prov: 06/24/15 Furosemide (Furosemide 40MG Tablet) 40 MG PO MWF PRN DIURETIC 30 Days Ref 5 Prov: 04/09/16 Reported Medications Ondansetron (Zofran 8MG Odt) 8 MG PO Q8HP NITROGLYCERIN (Nitrostat) 0.4 MG SL [id number] PRN CHEST PAIN Loratadine (Claritin 10MG) 10 MG PO DAILY OXYCODONE 7.5MG/[id number] (Oxycodon-Acetaminophen 7.5-325) 1 TAB PO Q6HP PRN PAIN MANAGEMENT Lorazepam (Lorazepam 1MG) 1 MG PO BID Current Medications: Current Medications Iopamidol 75 ML ONCE ONE IV (DC) Sodium Chloride 10 ML ONCE ONE IV (DC) Diatrizoate Meglum/Diatrizoate Sod 30 ML ONCE ONE PO (DC) Diatrizoate Meglum/Diatrizoate Sod 0 .STK-MED ONE .ROUTE (DC) Immunization HX Ped.Immunizations UTD Yes DT/Tetanus 1-4 Years Flu 2015-FSN Pneumonia RECEIVED IN PAST Family history Family HX Family Hx Insignificant No Diabetes No CAD Yes Hypertension Yes Hyperlipidemia Yes Cancer Yes TB No Social Hx: Smoking HX Tobacco No Type Cigarettes Are you/the child exposed to second-hand smoke: No Alcohol Alcohol: No Hx of Drug Use Drug Use? No Review of systems: Constitutional weakness. Respiratory SOB with excertion. Cardiovascular No no symptoms reported Gastrointestinal/Abdominal No no symptoms reported Genitourinary No: no symptoms reported. Musculoskeletal back pain. Neurological No: no symptoms reported. Exam: Admission Vital Signs: 1ST Vital Signs Result Date Time Pulse Ox 96 08/12 1154 B/P 167/62 08/12 1154 Temp 97.8 08/12 1154 Pulse 77 10/05 1154 Resp 29 08/12 1154 Last Vital Signs: Vital Signs Result Date Time Pulse Ox 96 08/12 1327 B/P 147/68 08/12 132 Pulse 74 08/12 132 Resp 18 08/12 132 Temp 98.3 08/12 1238 Exam General appearance: alert, awake, no acute distress Neck: JVD Cardiovascular: regular rate & rhythm, grade 2/6 systolic ejection murmur in aortic area. No S3 appreciated. Respiratory: basilar rales, diminished breath sounds ABD: soft, no tenderness Extremities: moves all, trace pretibial edema noted. Neuro: alert, intact Laboratory data: Laboratory Tests 08/12/17 1300: Urine Color YELLOW, Urine Appearance CLEAR, Urine pH 6.5, Ur Specific [place] 1.010, Urine Protein TRACE H, Urine Ketones NEGATIVE, Urine Blood 2+ H, Urine Nitrate NEGATIVE, Urine Bilirubin NEGATIVE, Urine Urobilinogen 2.0, Ur Leukocyte Esterase NEGATIVE, Urine RBC OCC, Urine WBC NONE, Ur Squamous Epith Cells OCC, Urine Bacteria NONE, Urine Glucose NEGATIVE 08/12/17 1255: Sodium 140, Potassium 4.3, Chloride 103, Carbon Dioxide 31, BUN 13, Creatinine 0.7, Estimated Creat Clear 52, Estimated GFR (MDRD) 79, Glucose 93, Calcium 8.9, Total Bilirubin 0.7, AST 15, ALT 17, Alkaline Phosphatase 87, Troponin I 0.02, B -Natriuretic Peptide 1740 H, Total Protein 7.0, Albumin 3.1 L, Globulin 3.9 H , Albumin/Globulin Ratio 0.8 L, Lipase 83, WBC 7.8, RBC 3.86 L, Hgb 12.8, Hct 39.4, MCV 101.9 H, RDW 13.1, Plt Count 273, MPV 8.2, Gran % 56.8, Gran # 4.4, Lymphocytes % 24.4, Monocytes % 11.2 H, Eosinophils % 6.3, Basophils % 1.5, Lymphocytes # 1.9, Monocytes # 0.9, Eosinophils # 0.5 H, Basophils # 0.1, PUBS MCHC 32.6, MCH 33.2 H 08/12/17 1250: Stool Occult Blood NEGATIVE Plan: Assessment: 1. Acute on chronic congestive heart failure. 2. History of moderate to severe aortic insufficiency. 3. Coronary artery disease with history of VA in remote past, recent Lexiscan Myoview without ischemia with normal ejection fraction. 4. Hypertension 5. Hyperlipidemia 6. Chronic atrial fibrillation, not anticoagulation candidate due to current falls. Recommendations: 1. Discontinue Norvasc. 2. Will increase lisinopril and follow renal status closely. 3. Aggressive diuresis. 4. Echocardiogram has been ordered. at 0950 4. Echocardiogram has been ordered.
--- NOTE | 2017-08-12 16:01 | CONSULT NOTE ---
Standard Demographics Patient Demo Date of Consultation: 08/12/17 Referring Provider: Rivera Aggarwal MD Reason for Consultation: CHF PRIMARY DIAGNOSIS: SOA Problem list Problem list: 1. Moderate to severe AI by echo 2. SSS A. PPM placed, 04/2017 3. Chronic A. fib, not anticoagulation candidate due to history of recurrent falls. 4. History of DVT in 5. Previous remote NC A. Bebeto myoview, no ischemia, 03/2017, with normal LVEF. 6. History of Depression 7. History of Non-Hodgkins Lymphoma 8. Hypertension 9. Hyperlipidemia 10. History of asthma History of present illness: History of present illness: 87-year-old white female seen in the emergency department for progressive shortness of breath. Patient has had complaints of shortness of breath since her pacemaker was implanted earlier this year however symptoms have been increasing over the last several days. She denies any chest pain or pressure. Electrocardiogram in the emergency department shows ventricular pacing with underlying atrial fibrillation. Initial cardiac enzyme is normal. Patient had a BNP of [address] of the abdomen showing RIGHT pleural effusion and pulmonary congestion, consistent with chronic congestive heart failure. Cardiology consulted for evaluation. Patient has a history of moderate to severe aortic insufficiency by previous echocardiogram. An echocardiogram has been ordered. Past Medical History: General: Hypertension Yes CVA Yes Seizures No TB No COPD No Asthma Yes Diabetes No Insulin Dependent No Insulin Pump No Angina Yes NC Yes Hyperlipidemia Yes Urinary Yes Cancer Yes Rheumatic H.D. No Ulcers Yes MRSA Yes GB Disease Yes Other BACK PROBLEMS,SPOTSIN CLAIRE Past Surgical HX: Previous Surgery?Y BACK SURGERY JOHNATHON KNEE REPLACEMENT CHOLECYSTECTOMY Appendix HEART CATH 2008 ROTATOR CUFF REPAIR LEFT CATARACT REMOVAL JOHNATHNO Spleen REMOVED OOPHRECTOMY/SALPINGECTIOM BILAT HIP BACK-COMPRESSION FX Allergies Coded Allergies: Penicillins (I-HIVES 04/20/17) Sulfa (Sulfonamide Antibiotics) (NA-NAUSEA/VOMITING 04/20/17) cephalexin (From KEFLEX) (NA-NAUSEA/VOMITING 04/20/17) ciprofloxacin (From CIPRO) (NA-NAUSEA/VOMITING 04/20/17) codeine (NA-NAUSEA/VOMITING 04/20/17) fexofenadine (From SALVADOR) (NA-NAUSEA/VOMITING 04/20/17) morphine (CONFUSION 04/20/17) promethazine (From PHENERGAN) (04/20/17) Home medications: Active Scripts BISOPROLOL FUMARATE (Bisoprolol 5MG) 10 MG PO DAILY #30 TAB Ref 6 Prov: 04/21/17 LISINOPRIL (Lisinopril) 10 MG PO DAILY #30 TAB Ref 5 Prov: 05/11/14 Citalopram Hydrobromide (Citalopram HBr) 40 MG PO DAILY #30 TAB Ref 5 Prov: 05/11/14 Sucralfate (Carafate) 1 GM PO AC #90 TAB Ref 1 Prov: 06/24/15 Furosemide (Furosemide 40MG Tablet) 40 MG PO MWF PRN DIURETIC 30 Days Ref 5 Prov: 04/09/16 Reported Medications Ondansetron (Zofran 8MG Odt) 8 MG PO Q8HP NITROGLYCERIN (Nitrostat) 0.4 MG SL [id number] PRN CHEST PAIN Loratadine (Claritin 10MG) 10 MG PO DAILY OXYCODONE 7.5MG/[id number] (Oxycodon-Acetaminophen 7.5-325) 1 TAB PO Q6HP PRN PAIN MANAGEMENT Lorazepam (Lorazepam 1MG) 1 MG PO BID Current Medications: Current Medications Iopamidol 75 ML ONCE ONE IV (DC) Sodium Chloride 10 ML ONCE ONE IV (DC) Diatrizoate Meglum/Diatrizoate Sod 30 ML ONCE ONE PO (DC) Diatrizoate Meglum/Diatrizoate Sod 0 .STK-MED ONE .ROUTE (DC) Immunization HX Ped.Immunizations UTD Yes DT/Tetanus 1-4 Years Flu 2015-FSN Pneumonia RECEIVED IN PAST Family history Family HX Family Hx Insignificant No Diabetes No CAD Yes Hypertension Yes Hyperlipidemia Yes Cancer Yes TB No Social Hx: Smoking HX Tobacco No Type Cigarettes Are you/the child exposed to second-hand smoke: No Alcohol Alcohol: No Hx of Drug Use Drug Use? No Review of systems: Constitutional weakness. Respiratory SOB with excertion. Cardiovascular No no symptoms reported Gastrointestinal/Abdominal No no symptoms reported Genitourinary No: no symptoms reported. Musculoskeletal back pain. Neurological No: no symptoms reported. Exam: Admission Vital Signs: 1ST Vital Signs Result Date Time Pulse Ox 96 08/12 1154 B/P 167/62 08/12 1154 Temp 97.8 08/12 1154 Pulse 77 10/05 1154 Resp 29 08/12 1154 Last Vital Signs: Vital Signs Result Date Time Pulse Ox 96 08/12 1327 B/P 147/68 08/12 132 Pulse 74 08/12 132 Resp 18 08/12 132 Temp 98.3 08/12 1238 Exam General appearance: alert, awake, no acute distress Neck: JVD Cardiovascular: regular rate & rhythm, grade 2/6 systolic ejection murmur in aortic area. No S3 appreciated. Respiratory: basilar rales, diminished breath sounds ABD: soft, no tenderness Extremities: moves all, trace pretibial edema noted. Neuro: alert, intact Laboratory data: Laboratory Tests 08/12/17 1300: Urine Color YELLOW, Urine Appearance CLEAR, Urine pH 6.5, Ur Specific [place] 1.010, Urine Protein TRACE H, Urine Ketones NEGATIVE, Urine Blood 2+ H, Urine Nitrate NEGATIVE, Urine Bilirubin NEGATIVE, Urine Urobilinogen 2.0, Ur Leukocyte Esterase NEGATIVE, Urine RBC OCC, Urine WBC NONE, Ur Squamous Epith Cells OCC, Urine Bacteria NONE, Urine Glucose NEGATIVE 08/12/17 1255: Sodium 140, Potassium 4.3, Chloride 103, Carbon Dioxide 31, BUN 13, Creatinine 0.7, Estimated Creat Clear 52, Estimated GFR (MDRD) 79, Glucose 93, Calcium 8.9, Total Bilirubin 0.7, AST 15, ALT 17, Alkaline Phosphatase 87, Troponin I 0.02, B -Natriuretic Peptide 1740 H, Total Protein 7.0, Albumin 3.1 L, Globulin 3.9 H , Albumin/Globulin Ratio 0.8 L, Lipase 83, WBC 7.8, RBC 3.86 L, Hgb 12.8, Hct 39.4, MCV 101.9 H, RDW 13.1, Plt Count 273, MPV 8.2, Gran % 56.8, Gran # 4.4, Lymphocytes % 24.4, Monocytes % 11.2 H, Eosinophils % 6.3, Basophils % 1.5, Lymphocytes # 1.9, Monocytes # 0.9, Eosinophils # 0.5 H, Basophils # 0.1, PUBS MCHC 32.6, MCH 33.2 H 08/12/17 1250: Stool Occult Blood NEGATIVE Plan: Assessment: 1. Acute on chronic congestive heart failure. 2. History of moderate to severe aortic insufficiency. 3. Coronary artery disease with history of NC in remote past, recent Lexiscan Myoview without ischemia with normal ejection fraction. 4. Hypertension 5. Hyperlipidemia 6. Chronic atrial fibrillation, not anticoagulation candidate due to current falls. Recommendations: 1. Discontinue Norvasc. 2. Will increase lisinopril and follow renal status closely. 3. Aggressive diuresis. 4. Echocardiogram has been ordered. at 0950 4. Echocardiogram has been ordered.
[2017-08-12 19:29] VITALS: BP 157/72
[2017-08-12 20:23] VITALS: BP 145/78
[2017-08-12 20:25] VITALS: BP 145/78
[2017-08-13] VITALS (9 sets, daily range): BP systolic 140–172; BP diastolic 51–69
--- NOTE | 2017-08-13 07:04 | HISTORY AND PHYSICAL REPORT ---
Demographics: Admit date: 08/13/17 Chief complaint: Shortness of air/abdominal pain PRIMARY DIAGNOSIS: CHF, CARDIOMEGALY Allergies: Coded Allergies: Penicillins (I-HIVES 04/20/17) Sulfa (Sulfonamide Antibiotics) (NA-NAUSEA/VOMITING 04/20/17) cephalexin (From KEFLEX) (NA-NAUSEA/VOMITING 04/20/17) ciprofloxacin (From CIPRO) (NA-NAUSEA/VOMITING 04/20/17) codeine (NA-NAUSEA/VOMITING 04/20/17) fexofenadine (From SALVADOR) (NA-NAUSEA/VOMITING 04/20/17) morphine (CONFUSION 04/20/17) promethazine (From PHENERGAN) (04/20/17) History of present illness: History of present illness: 87-year-old white female seen in the emergency department for progressive shortness of breath. Patient has had complaints of shortness of breath since her pacemaker was implanted earlier this year however symptoms have been increasing over the last several days. She denies any chest pain or pressure. Electrocardiogram in the emergency department shows ventricular pacing with underlying atrial fibrillation. Initial cardiac enzyme is normal. Patient had a BNP of [address] of the abdomen showing RIGHT pleural effusion and pulmonary congestion, consistent with chronic congestive heart failure. Cardiology consulted for evaluation. Patient has a history of moderate to severe aortic insufficiency by previous echocardiogram. An echocardiogram has been ordered. Above note per cardiology consultation-reviewed and appreciated. Patient this morning on my initial examination feels somewhat better, continues to have a little bit of shortness of air. She does note that she urinated quite a bit through the night last night. Denies chest pain, denies orthopnea and is lying flat comfortably. Past medical history: Family HX Diabetes No CAD Yes Hypertension Yes Hyperlipidemia Yes Cancer Yes TB No Immunization HX Ped.Immunizations UTD Yes DT/Tetanus Unknown Flu 2015-FSN Pneumonia Received In Past TB Test in last year No General CAD? Yes Angina: Yes VT: Yes Hypertension? Yes Hyperlipidemia? Yes CHF? No DVT? Yes PE? No COPD? No Asthma? Yes Anemia? No GERD? Yes Gastric ulcers? No GI Bleed? No Hernia? Yes Thyroid Problems? No Hypothyroidism? No CVA? Yes Seizures? No Diabetes? No Insulin Dependent: No Insulin Pump: No Home FSBS? No Renal Insuffiency? No UTI? Yes Stones? No BPH? No GB Disease: Yes Nephritic Syndrome? No Asplenia? No Hepatitis? No Sickle Cell Disease? No Arthritis? Yes Migraines? Yes Cataracts? Yes Glaucoma? No MRSA? Yes HIV? No TB? No Anxiety? Yes Depression? 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 Past Surgical HX Previous Surgery?Y BACK SURGERY JOHNATHON KNEE REPLACEMENT CHOLECYSTECTOMY Appendix HEART CATH 2008 ROTATOR CUFF REPAIR LEFT CATARACT REMOVAL JOHNATHON Spleen REMOVED OOPHRECTOMY/SALPINGECTIOM BILAT HIP BACK-COMPRESSION FX Pacemaker placed 04/20/17 Current home meds: Active Scripts BISOPROLOL FUMARATE (Bisoprolol 5MG) 10 MG PO DAILY #30 TAB Ref 6 Prov: 04/21/17 LISINOPRIL (Lisinopril) 10 MG PO DAILY #30 TAB Ref 5 Prov: 05/11/14 Citalopram Hydrobromide (Citalopram HBr) 40 MG PO DAILY #30 TAB Ref 5 Prov: 05/11/14 Sucralfate (Carafate) 1 GM PO AC #90 TAB Ref 1 Prov: 06/24/15 Furosemide (Furosemide 40MG Tablet) 40 MG PO MWF PRN DIURETIC 30 Days Ref 5 Prov: 04/09/16 Reported Medications Ondansetron (Zofran 8MG Odt) 8 MG PO Q8HP NITROGLYCERIN (Nitrostat) 0.4 MG SL [id number] PRN CHEST PAIN Dexlansoprazole (Dexilant) 60 MG PO DAILY Loratadine (Claritin 10MG) 10 MG PO DAILY OXYCODONE 7.5MG/[id number] (Oxycodon-Acetaminophen 7.5-325) 1 TAB PO Q6HP PRN PAIN MANAGEMENT Lorazepam (Lorazepam 1MG) 1 MG PO BID Social Hx: Smoking HX Tobacco No Type Cigarettes Packs/day N/A Are you/the child exposed to second-hand smoke: No Alcohol Alcohol: No Hx of Drug Use Drug Use? No Patien't marital status is single Patient's support system is good Comment: Currently lives with her daughter in [place]. Review of systems: Constitutional malaise, weakness. Respiratory shortness of breath, SOB with excertion. Cardiovascular see HPI Gastrointestinal/Abdominal nausea, poor appetite Genitourinary No: no symptoms reported. Musculoskeletal No: no symptoms reported. Neurological No: see HPI. Exam: Lab data for last 24 hours: Laboratory Tests 08/12/17 1300: Urine Color YELLOW, Urine Appearance CLEAR, Urine pH 6.5, Ur Specific [place] 1.010, Urine Protein TRACE H, Urine Ketones NEGATIVE, Urine Blood 2+ H, Urine Nitrate NEGATIVE, Urine Bilirubin NEGATIVE, Urine Urobilinogen 2.0, Ur Leukocyte Esterase NEGATIVE, Urine RBC OCC, Urine WBC NONE, Ur Squamous Epith Cells OCC, Urine Bacteria NONE, Urine Glucose NEGATIVE 08/12/17 1255: Sodium 140, Potassium 4.3, Chloride 103, Carbon Dioxide 31, BUN 13, Creatinine 0.7, Estimated Creat Clear 52, Estimated GFR (MDRD) 79, Glucose 93, Calcium 8.9, Total Bilirubin 0.7, AST 15, ALT 17, Alkaline Phosphatase 87, Troponin I 0.02, B -Natriuretic Peptide 1740 H, Total Protein 7.0, Albumin 3.1 L, Globulin 3.9 H , Albumin/Globulin Ratio 0.8 L, Lipase 83, WBC 7.8, RBC 3.86 L, Hgb 12.8, Hct 39.4, MCV 101.9 H, RDW 13.1, Plt Count 273, MPV 8.2, Gran % 56.8, Gran # 4.4, Lymphocytes % 24.4, Monocytes % 11.2 H, Eosinophils % 6.3, Basophils % 1.5, Lymphocytes # 1.9, Monocytes # 0.9, Eosinophils # 0.5 H, Basophils # 0.1, PUBS MCHC 32.6, MCH 33.2 H 08/12/17 1250: Stool Occult Blood NEGATIVE Admission vital signs: 1ST Vital Signs Result Date Time Pulse Ox 96 08/12 1154 B/P 167/62 08/12 1154 Temp 97.8 08/12 1154 Pulse 77 08/12 1154 Resp 29 08/12 1154 O2 Delivery ROOM AIR 08/12 1929 Additional information: Patient is pleasant, alert. Oropharynx clear. Edentulous. No JVD while lying flat. Heart rate regular. Very soft 1/6 holosystolic murmur. Occasional ectopic beats. No gallops. Lungs are clear except for some expiratory wheezing in both lower lung bonilla but no dullness to percussion or crackles. Abdomen soft, extremities are warm and well-perfused. Able to move all extremities equally with no focal neurologic deficits. Plan: Problem List 1. Congestive heart failure 2. Cardiomegaly 3. Pleural effusion Plan: Agree with admission for IV diuresis and medication changes as already instituted. Check echocardiogram today. at 0704
--- NOTE | 2017-08-13 07:29 | PHARMACY CLINIC NOTE ---
Patient Demographics Patient Demographics Admission date: 08/12/17 Date: 08/13/17 Time: 0728 Allergies Coded Allergies: Penicillins (I-HIVES 04/20/17) Sulfa (Sulfonamide Antibiotics) (NA-NAUSEA/VOMITING 04/20/17) cephalexin (From KEFLEX) (NA-NAUSEA/VOMITING 04/20/17) ciprofloxacin (From CIPRO) (NA-NAUSEA/VOMITING 04/20/17) codeine (NA-NAUSEA/VOMITING 04/20/17) fexofenadine (From SALVADOR) (NA-NAUSEA/VOMITING 04/20/17) morphine (CONFUSION 04/20/17) promethazine (From PHENERGAN) (04/20/17) HEIGHT- FT: 5 IN: 0.00 K.596 VTE General Information Labs: Laboratory Tests 08/12 1255 Hematology Hgb (12.2 - 16.2 g/dL) 12.8 Hct (37.0 - 47.0 %) 39.4 Plt Count (142 - 424 K/mm3) 273 Disclaimer The following section includes nursing documentation that has been pulled in for pharmacy review. Patient's VTE score: 2 Patient's VTE Risk: VERY LOW RISK Clinical trial participant? No VTE prophylaxis NQF [id number] VTE prophylaxis ordered? Yes Type of prophylaxis/treatment: Loveprateek at 0792
--- NOTE | 2017-08-13 07:43 | RADIOLOGY REPORT PS360 ---
CHEST-AP VIEW ONLY COMPARISON: PA and lateral chest 06/16/2017 HISTORY: Shortness of breath and elevated BNP TECHNIQUE: AP upright chest FINDINGS: The lung bonilla are well expanded and appear clear of infiltrate. There is mild cardio megaly with left ventricular prominence. There is a cardiac pacemaker with unipolar electrode in good position. There is no evidence of failure. There are prominent degenerative changes of both shoulders left greater than right. IMPRESSION: Nonacute chest findings
[2017-08-13] MEDS ORDERED: KAPIDEX60 MG PO (10:42)
--- NOTE | 2017-08-13 13:58 | RADIOLOGY REPORT PS360 ---
PROCEDURE: 2-D M-mode and color Doppler study INDICATIONS FOR THE TEST: Chest pain COPD Heart Murmur Tobacco Smoking Palpitations Fatigue Syncope Edema Hypertension+Diabetes Mellitus Rheumatic Fever SOB+PALACIO Obesity Hyperlipidemia+ Family History HD Additional History CAD, AFIB, ASHTMA, PACER 04/24 PATIENT INFORMATION HEIGHT: 60 WEIGHT:130 GENDER: Female B/P:147/68 2-D/M-MODE INTERPRETATION: 2-D MEASUREMENTS OBSERVED VALUES IN CMS Right Ventricular Dimension (RVDd) 2.0 Interventricular Septum (Thickness)(IVsd) 1.6 Left Ventricular Internal Dimensions(LVIDd) 4.9 Left Ventricular Posterior Wall (Thickness)(LVPWd) 1.0 Aortic Root 3.5 Aortic Cusp Separation 1.3 Left Atrial Dimensions (LAD) 4.6 2D 1. Left atrium is moderately enlarged, left ventricle is normal size, there is moderate concentric left ventricular hypertrophy present, visually estimated ejection fraction of 55% with no obvious regional wall motion abnormality. 2. The right atrium is moderately enlarged, right ventricle is mildly dilated with normal contractility. There is catheter noted in the right atrium and right ventricle which is likely a pacemaker lead. 3. The aortic valve is thickened and calcified leaflet continue to display mobility. 4. The mitral and tricuspid valve leaflets are minimally thickened. 5. The pulmonic valve is poorly visualized. 6. No significant pericardial effusion noted DOPPLER INTERROGATION: Doppler interrogation of the aortic, mitral and tricuspid valvular presence of severe aortic, moderate mitral and moderate tricuspid regurgitation, calculated right ventricular systolic pressure of 60 mmHg consistent with moderate pulmonary hypertension. CONCLUSION: 1. Moderate biatrial enlargement, normal left ventricular size, moderate concentric left ventricular hypertrophy, visually estimated ejection fraction 55% with no obvious regional wall motion abnormality. 2. Mildly enlarged right ventricle with normal contractility. 3. Severe aortic, moderate mitral and tricuspid regurgitation. Calculated right ventricular systolic pressure is 60 mmHg consistent with moderate pulmonary hypertension. 4. No significant pericardial effusion noted.
--- NOTE | 2017-08-13 15:26 | ACUTE CARE PROGRESS NOTE (QUA) ---
Progress Notes Subjective Date 08/13/17 Time 1520 Note 87 yo WF in bed in NAD. Breathing better. No complaint of chest pains. Objective Findings Last VS-Temp:98.2 B/P:152/60 Pulse:74 Resp:20 SaO2:95 ROOM AIR Last weight lbs:138 oz:0 K.596 Method:Floor Scales Exam General appearance: alert, awake, no acute distress Cardiovascular: regular rate & rhythm Respiratory: basilar rales Extremities: moves all Neuro: alert, intact, oriented Reviewed: medications, vital signs, lab results Assessment/Plan Problem List 1. Congestive heart failure Assessment/Plan: clinically improved. 2. Cardiomegaly 3. Pleural effusion 4. Severe aortic insufficiency Patient condition Stable Plan: continue current meds and follow renal status to adjust meds as needed. Pt is not a surgical candidate for aortic repair. Medical therapy only. This inpt stay is expected to cross 2 MNs from start of care Yes at 1521
[2017-08-14 04:21] VITALS: BP 109/61
[2017-08-14] MEDS ORDERED: FUROSEMIDE 40MG40 MG PO (07:10)
--- NOTE | 2017-08-14 07:13 | DISCHARGE SUMMARY STANDARD ---
Demographics Admit date: 08/13/17 Discharge date: 08/14/17 History of present illness History of present illness 87-year-old white female seen in the emergency department for progressive shortness of breath. Patient has had complaints of shortness of breath since her pacemaker was implanted earlier this year however symptoms have been increasing over the last several days. She denies any chest pain or pressure. Electrocardiogram in the emergency department shows ventricular pacing with underlying atrial fibrillation. Initial cardiac enzyme is normal. Patient had a BNP of [address] of the abdomen showing RIGHT pleural effusion and pulmonary congestion, consistent with chronic congestive heart failure. Cardiology consulted for evaluation. Patient has a history of moderate to severe aortic insufficiency by previous echocardiogram. An echocardiogram has been ordered. Above note per cardiology consultation-reviewed and appreciated. Patient this morning on my initial examination feels somewhat better, continues to have a little bit of shortness of air. She does note that she urinated quite a bit through the night last night. Denies chest pain, denies orthopnea and is lying flat comfortably. Hospital Course Hospital Course: Patient was diuresed through her hospital course with intravenous Lasix 3 doses. She had a good response and diuresed about 1.5 L. Her weight did not change according to nursing monitoring. Patient felt much better in regards to breathing. Echocardiogram was done which revealed preserved ejection fraction of 55 percent but evidence of diastolic dysfunction and severe aortic, mitral and tricuspid regurgitation. Not a surgical candidate, cardiology recommended ongoing medical management. Patient has responded very well to diuresis. Plan will be to discharge home today. Discharge physical examination revealed an anxious white female who is in her normal state of health according to her. She has fairly clear lungs with minimal rhonchi in both bases but improved over admission. Holosystolic murmur in both the aortic and mitral areas noted. No gallops. Abdomen soft, good distal tissue perfusion. Plan will be to discharge home. I've taken the liberty of instituting a home health referral for a congestive heart failure management program. Patient needs PT/OT evaluation along with custodial care for congestive heart failure management, weight checks, blood pressure monitoring and med monitoring. She is homebound because of dyspnea and significant difficulty ambulating outside the home. She also needs to follow-up closely with cardiology next week and with her primary director of claims, Dr. Nath. Also taken the liberty of instructing her to take her Lasix daily. She had been on a Sumeet/Wednesday/Wednesday regimen. She will obviously need close creatinine monitoring as her creatinine here with intravenous Lasix bumped from 0.7 up to 1.2. Discharge diagnoses Problem List 1. Congestive heart failure 2. Cardiomegaly 3. Pleural effusion 4. Severe aortic insufficiency Medications Medications: Discharge meds are as noted. Follow up Follow up in office in: 3 DAYS with: oWn Murphy MD at 0713
--- NOTE | 2017-08-14 07:13 | DISCHARGE SUMMARY STANDARD ---
Demographics Admit date: 08/13/17 Discharge date: 08/14/17 History of present illness History of present illness 87-year-old white female seen in the emergency department for progressive shortness of breath. Patient has had complaints of shortness of breath since her pacemaker was implanted earlier this year however symptoms have been increasing over the last several days. She denies any chest pain or pressure. Electrocardiogram in the emergency department shows ventricular pacing with underlying atrial fibrillation. Initial cardiac enzyme is normal. Patient had a BNP of [address] of the abdomen showing RIGHT pleural effusion and pulmonary congestion, consistent with chronic congestive heart failure. Cardiology consulted for evaluation. Patient has a history of moderate to severe aortic insufficiency by previous echocardiogram. An echocardiogram has been ordered. Above note per cardiology consultation-reviewed and appreciated. Patient this morning on my initial examination feels somewhat better, continues to have a little bit of shortness of air. She does note that she urinated quite a bit through the night last night. Denies chest pain, denies orthopnea and is lying flat comfortably. Hospital Course Hospital Course: Patient was diuresed through her hospital course with intravenous Lasix 3 doses. She had a good response and diuresed about 1.5 L. Her weight did not change according to nursing monitoring. Patient felt much better in regards to breathing. Echocardiogram was done which revealed preserved ejection fraction of 55 percent but evidence of diastolic dysfunction and severe aortic, mitral and tricuspid regurgitation. Not a surgical candidate, cardiology recommended ongoing medical management. Patient has responded very well to diuresis. Plan will be to discharge home today. Discharge physical examination revealed an anxious white female who is in her normal state of health according to her. She has fairly clear lungs with minimal rhonchi in both bases but improved over admission. Holosystolic murmur in both the aortic and mitral areas noted. No gallops. Abdomen soft, good distal tissue perfusion. Plan will be to discharge home. I've taken the liberty of instituting a home health referral for a congestive heart failure management program. Patient needs PT/OT evaluation along with alf care for congestive heart failure management, weight checks, blood pressure monitoring and med monitoring. She is homebound because of dyspnea and significant difficulty ambulating outside the home. She also needs to follow-up closely with cardiology next week and with her primary table assembler metal, Dr. Nath. Also taken the liberty of instructing her to take her Lasix daily. She had been on a Sumeet/Wednesday/Wednesday regimen. She will obviously need close creatinine monitoring as her creatinine here with intravenous Lasix bumped from 0.7 up to 1.2. Discharge diagnoses Problem List 1. Congestive heart failure 2. Cardiomegaly 3. Pleural effusion 4. Severe aortic insufficiency Medications Medications: Discharge meds are as noted. Follow up Follow up in office in: 3 DAYS with: Won Murphy MD at 0713
[2017-08-14 07:28] VITALS: BP 141/57
[2017-08-14 09:13] VITALS: BP 141/57
[2017-08-14 10:53] VITALS: BP 141/57
--- OUTSIDE RECORDS SUMMARY | 2017-08-19 19:03 | External Medical Summary Rpt | CCD ---
Author Author , KARLIE ZIEGLER Address Unknown Phone [email or web address] Care Team Providers Care Germ Drier Name Role Phone ALFARIS MOH, ALFARIS Unavailable Unavailable MOH ALLRAN JR MANJINDER, ALLRAN Unavailable Unavailable JR MANJINDER ANJUR-KAPALI CORNELIA, Unavailable Unavailable ANJUR-KAPALI CORNEILA [facility]available Unavailable [facility], [facility] Unavailable Unavailable [facility], [facility] GUPTALEE RASMUSSEN, GUPTA Unavailable Unavailable BRO BEINEKE ANGELIKA, BEINEKE Unavailable Unavailable ANGELIKA BESSON CASSANDRA, BESSON Unavailable Unavailable CASSANDRA ROGER, CARITO A, Unavailable Unavailable BESSON CARITO A SALVADOR, SALVADOR Unavailable Unavailable SALVADOR ALL, SALVADOR ALL Unavailable Unavailable [facility], Unavailable Unavailable [facility] Unavailable Unavailable SERVICE, [facility] Unavailable Unavailable SERVICE, [facility] ANDREA RAE IGN, Unavailable Unavailable ANDREA RAE IGN CARL ACKERMAN W, Unavailable Unavailable CARL ACKERMAN W DAMIAN SAJAN, DAMIAN SAJAN Unavailable Unavailable [facility] Unavailable Unavailable CAMPUS, [facility] Unavailable Unavailable ANESTHESIA, [facility] ANESTHESIA [facility] Unavailable Unavailable [facility], [facility] Unavailable Unavailable DUBILIER, [facility], Unavailable Unavailable [facility] BARROW JANET, BARROW Unavailable Unavailable JANET [facility] Unavailable Unavailable [facility], [facility] Unavailable Unavailable [facility], [facility] Un[facility] Unavailable [facility], [facility] Unavailable Unavailable [facility], [facility] GARTHCAMILLE VIVAS, GARTH Unavailable Unavailable ORTEGA VIVAS, Unavailable Unavailable MARTINE SALDIVAR JR, Unavailable Unavailable MARTINE LIANG JR, ESTIVEN Unavailable Unavailable JR VARUN ZACH, ZACH Unavailable Unavailable ZACH LATRELL, Unavailable Unavailable ZACH LATRELL ZACH, DEAN, Unavailable Unavailable ZACH, DEAN FEEBACK, FEEBACK Unavailable Unavailable RAINES, ARMIN P, Unavailable Unavailable RAINES, ARMIN P LEOBARDO SAJAN, LEOBARDO Unavailable Unavailable SAJAN MADDY STARK S, Unavailable Unavailable MADDY STARK S [facility] Unavailable Unavailable INC, [facility] Unavailable Unavailable HOSPITAL P, [facility] P [facility], Unavailable Unavailable [facility] HORN SAJAN, HORN SAJAN Unavailable Unavailable HORN, MADDY E, Unavailable Unavailable HORN, MADDY E BRENNAN ADI, BRENNAN Unavailable Unavailable ADI MAK, MAK Unavailable Unavailable LUCAS TRA, LUCAS TRA Unavailable Unavailable MANUELA ORTEGA, MANUELA Unavailable Unavailable ORTEGA CASEY CHARLES, CASEY CHARLES Unavailable Unavailable [facility] Un[facility] Unavailable GROUP PS, [facility] Un[facility], [facility] Unavailable Unavailable IMAGING [facility], [facility] Unavailable Unavailable MEDICAL G, [facility] G KORBA ORTEGA, KORBA ORTEGA Unavailable Unavailable [facility] Un[facility] Un[facility], [facility] Unavailable [facility], [facility] Un[facility], [facility] ISMAEL YOJANA, ISMAEL Unavailable Unavailable YOJANA ISMAEL YOJANA, ISMAEL Unavailable Unavailable YOJANA ISMAEL JR, ISMAEL JR Unavailable Unavailable ISMAEL JR, ISMAEL JR Unavailable Unavailable ISMAEL JR DWI, ISMAEL Unavailable Unavailable JR DWI ISMAEL, YOJANA E, Unavailable Unavailable ISMAEL, YOJANA E [facility] Unavailable Unavailable LABORATO, [facility] Unavailable Unavailable LABORATORY, [facility] Unavailable Unavailable SERVICES, [facility] RAY AND, Unavailable Unavailable RAY AND HANNY, JORGE F, Unavailable Unavailable JORGE GAMINO F CLAUDETTE ORTEGA, CLAUDETTE Unavailable Unavailable ORTEGA ARABELLAMAHESH IRELAND M, Unavailable Unavailable ARABELLAMAHESH IRELAND M [facility] Unavailable Unavailable [facility], [facility] PSC NANDO PEREZ, Unavailable Unavailable N[facility]O PEREZ [facility], Unavailable Unavailable PLL[facility], [facility] Unavailable Unavailable LAB, [facility] PAWSAT MAR, PAWSAT Unavailable Unavailable MAR PAWSAT MAR, PAWSAT Unavailable Unavailable [facility] Unavailable Unavailable [facility] Unavailable Unavailable [facility] PETTEY JAM, PETTEY Unavailable Unavailable JAM RENUSCH SARAH, RENUSCH Unavailable Unavailable SARAH CHAKA CASSANDRA, CHAKA CASSANDRA Unavailable Unavailable RIKI, RIKI Unavailable Unavailable SIEMER CLARY, SIEMER Unavailable Unavailable CLARY VALDEZ DELMY, VALDEZ DELMY Unavailable Unavailable SOKAN BAB, SOKAN BAB Unavailable Unavailable MICHELLE EMELI, MICHELLE Unavailable Unavailable EMELI [facility] Unavailable Unavailable [facility], [facility] Unavailable Unavailable [facility], [facility] Unavailable Unavailable EMERGENCY PHYS, [facility] NISHA SHE, Unavailable Unavailable NISHA SHE [facility], Unavailable Unavailable [facility] JESSE PARTHA, Unavailable [facility]available [facility] TYESHA DON, Unavailable Unavailable ARAMBULAKRISS ARAMBULA DON, Unavailable Unavailable ARAMBULA REMBERTO ARAMBULA, REMBERTO R, Unavailable Unavailable TYESHA, REMBERTO R LILO RALPH, LILO Unavailable Unavailable ONOFRE URIBE, Unavailable Unavailable ONOFRE GUNN FOR, WALKER Unavailable Unavailable FOR WEHARSHAD III VARUN, Unavailable Unavailable WEHRLUCIANA Arias Unavailable Unavailable Jorge KIM MD III ELAINE CRENSHAW Unavailable Unavailable SHIN WEEMS, Unavailable Unavailable SHIN WEEMS MAT, MUSA MAT Unavailable Unavailable Purpose Continuity of Care Document - 11-18-2007 through 2016 Problems Code Diagnosis DOS Provider Status [id number] UNSPECIFIED 07-17-2017 [facility]URY OF [facility]ESSE HEAD PARTHA INITIAL ENCOUNTER [id number] CONTUSION 07-17-2017 ST. OF LEFT FLOY[place] FOREARM PARTHA INITIAL ENCOUNTER [id number] LACERATION 07-17-2017 ST. W/O FOREIGN JESSE BODY LT PARTHA FOREARM INITIAL G57178 OTHER LONG 07-17-2017 . TERM [facility] PARTHA DRUG THERAPY Z9181 HISTORY OF 07-17-2017 [facility] E875 HYPERKALEMI 07-06-2017 [facility] D649 ANEMIA 07-02-2017 [facility] UNSPECIFIED [facility] I10 ESSENTIAL 07-02-2017 [facility] PRIMARY [facility] HYPERTENSIO INC N K219 GASTRO-ESOP 07-02-2017 [facility] H REFLUX [facility] DISEASE INC WITHOUT ESOPHAGITIS N183 CHRONIC 07-02-2017 [facility] KIDNEY [facility] DISEASE INC STAGE 3 MODERATE D59023 UNSPECIFIED 06-28-2017 [facility] HOME WITH ACUTE MEDICAL EXACERBATIO EQUIPME N J90 PLEURAL 06-16-2017 [facility] EFF[facility] NOT IMAGING ASS ELSEWHERE CLASSIFIED R0602 SHORTNESS 06-16-2017 [facility] OF BREATH MEDICAL IMAGING ASS R062 WHEEZING 06-16-2017 [facility] R918 OTHER 06-16-2017 [facility] NONSPECIFIC MEDICAL ABNORMAL IMAGING ASS FINDING OF LUNG FIELD I119 HYPERTENSIV 06-01-2017 [facility] E HEART PHYSICIANS DISEASE GROUP WITHOUT HEART FAILURE I4891 UNSPECIFIED 06-01-2017 [facility] ATRIAL PHYSICIANS FIBRILLATIO GROUP N R0600 DYSPNEA 06-01-2017 [facility] UNSPECIFIED [facility] INC Z950 PRESENCE OF 06-01-2017 [facility] CARDIAC PHYSICIANS PACEMAKER GROUP I2510 ASHD JENA 04-27-2017 [facility] 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 ANGINA PECTORIS I351 NONRHEUMATI 04-27-2017 [facility] C AORTIC PHYSICIANS VALVE GROUP INSUFFICIEN CY R296 REPEATED 04-27-2017 [facility] FALLS PHYSICIANS GROUP R5383 OTHER 04-27-2017 [facility] FATIGUE PHYSICIANS GROUP G52585 PAIN IN 04-23-2017 [facility] LEFT ARM MEDICAL IMAGING ASS X70796 PAIN IN 04-23-2017 [facility] LEFT UPPER [facility] ARM INC R2232 LOCALIZED 04-23-2017 [facility] SWELLING [facility] MASS AND INC LUMP LEFT UPPER LIMB R600 LOCALIZED 04-23-2017 [facility] EDEMA MEDICAL IMAGING ASS C8597 NON-HODGKIN 04-20-2017 [facility] LYMPHOMA [facility] UNSPECIFIED INC SPLEEN I272 OTHER 04-20-2017 [facility] SECONDARY [facility] PULMONARY INC HYPERTENSIO N I495 SICK SINUS 04-20-2017 [facility] SYNDROME PHYSICIANS GROUP R001 BRADYCARDIA 04-20-2017 [facility] PHYSICIANS UNSPECIFIED GROUP R002 PALPITATION 04-20-2017 [facility] S PHYSICIANS GROUP I482 CHRONIC 04-02-2017 [facility]IBRILLAT[facility] FOUNDATION N C8590 NON-HODGKIN 03-22-2017 [facility] LYMPHOMA MEDICAL UNS IMAGING ASS UNSPECIFIED SITE I209 ANGINA 03-16-2017 [facility] PECTORIS [facility] UNSPECIFIED INC I208 OTHER FORMS 03-10-2017 [facility] OF ANGINA [facility] PECTORIS INC T15527 PERSONAL 02-26-2017 [place] [facility] THROMBOSIS& EMBOLISM U55269 ACUTE EMBO 02-23-2017 [facility] THROMB UNS PHYSICIANS DEEP VEINS GROUP UNS LOW EXTREM R42 DIZZINESS 02-23-2017 [facility] AND PHYSICIANS GIDDINESS GROUP I499 CARDIAC 02-03-2017 [facility] ARRHYTHMIA [facility] UNSPECIFIED HOSPITAL P I517 CARDIOMEGAL 02-03-2017 [facility] Y MEDICAL IMAGING ASS W84074 SPONDYLOSIS 02-03-2017 [place] W/O MEDICAL MYELOPATH/R IMAGING ASS ADICULOPATH Y CERV RGN S42565 OTHER 02-03-2017 [facility] CERVICAL MEDICAL DISC IMAGING ASS DEGENERATIO N AT C5-C6 LEVEL F83652 OTHER 02-03-2017 [facility] CERVICAL MEDICAL DISC IMAGING ASS DEGENERATIO N AT C6-C7 LEVEL M542 CERVICALGIA 02-03-2017 [facility] M545 LOW BACK 01-13-2017 [facility] PAIN [facility] INC R109 UNSPECIFIED 01-13-2017 [facility] ABDOMINAL [facility] PAIN INC R110 NAUSEA 01-13-2017 [facility] INC Z8673 PERSONAL HX 01-13-2017 [facility] TIA & MEM [facility] CEREB INC INFARCT NO RESID DEFICIT P17217 PAIN IN 01-05-2017 [place] LEFT HIP MEDICAL IMAGING ASS H52173P FRACTURE 01-05-2017 [facility] MEDICAL [facility] LT IMAGING ASS PUBIS INIT ENC CLOS FX [id number] OTHER SPEC 01-05-2017 [facility] FX LT PUBIS PHYSICIANS, INITIAL PLLC CLOS FRACTURE J209 ACUTE 11-30-2016 ISMA[facility] SIMMONS BRONCHITIS UNSPECIFIED Z6830 BODY MASS 11-30-2016 ISMAEL JR INDEX BMI 30.0-30.9 ADULT H903 SENSORINEUR 08-04-2016 [place] [facility] HEARING AND THROAT LOSS BILATERAL H905 UNSPECIFIED 08-04-2016 [facility] AL HEARING LOSS D539 NUTRITIONAL 06-08-2016 [facility] ANEMIA HEALTH UNSPECIFIED CAMPUS D62 ACUTE 06-08-2016 [facility] POSTHEMORRH HEALTH AGIC ANEMIA CAMPUS R410 DISORIENTAT 06-08-2016 [facility] ION HEALTH UNSPECIFIED CAMPUS R68230V FX UNS PART 06-08-2016 [facility] NECK LT HEALTH FEMUR CAMPUS SUBSQT CLOS FX RTN L16829 PRESENCE OF 06-08-[address] [facility] HIP JOINT M659 SYNOVITIS 04-27-2016 [facility] & TENOSYNOVIT DUBILIER IS UNSPECIFIED R2242 LOCALIZED 04-27-2016 [facility] SWELLING MEDICAL MASS AND IMAGING ASS LUMP LEFT LOWER LIMB R342QCB INFECTION 04-27-2016 [facility] FOLLOWING [facility] PROCEDURE INC INITIAL ENCOUNTER Z4889 ENCOUNTER 04-27-2016 [facility] FOR OTHER MEM [facility] SPECIFIED INC SURGICAL AFTERCARE Z471 AFTERCARE 04-23-2016 [place] FOLLOWING MEDICAL JOINT IMAGING ASS REPLACEMENT SURGERY Z7401 BED 04-09-2016 [facility] AMBULANCE STATUS SERVICE I129 HYPERTENSIV 04-05-2016 [facility] E CKD [facility] W/STAGE 1-4 HOSPITAL P CKD OR UNS CKD F87324 ASHD JENA 04-05-2016 [facility] PALMA [facility] W/UNS INC ANGINA PECTORIS L97010 PAIN IN 04-05-2016 [facility] LEFT THIGH MEDICAL IMAGING ASS N179 ACUTE 04-05-2016 [place] [facility] P UNSPECIFIED R079 CHEST PAIN 04-05-2016 [place] UNSPECIFIED MEDICAL IMAGING ASS V96296G FX UNS PART 04-05-2016 [facility] NECK LT PHYSICIANS, FEMUR PLLC INITIAL ENC CLOS FX [id number] UNS 04-05-2016 [place] INTRACAPSUL MEDICAL AR FX LT IMAGING ASS FEMUR INIT ENC CLOS FX [id number] UNSPECIFIED 04-05-2016 [facility] FALL PHYSICIANS INITIAL GROUP ENCOUNTER Z9889 OTHER 04-05-2016 [place] SPECIFIED MEDICAL POSTPROCEDU IMAGING ASS [facility] STATES R0781 PLEURODYNIA 03-30-2016 [facility] R0789 OTHER CHEST 03-30-2016 [facility] PAIN PHYSICIANS, PLLC R911 SOLITARY 03-30-2016 [place] PULMONARY MEDICAL NODULE IMAGING ASS R1031 RIGHT LOWER 03-23-2016 [facility] QUADRANT PHYSICIANS PAIN GROUP R197 DIARRHEA 02-25-2016 [facility] UNSPECIFIED ANESTH OF THE BLUE L299 PRURITUS 02-21-2016 IS[facility] UNSPECIFIED YOJANA P91770 SPONDYLOSIS 02-21-2016 IS[facility] W/O YOJANA MYELOPATH/R ADICULPATHY LS RGN N281 CYST OF 02-21-2016 [facility] KIDNEY MEDICAL ACQUIRED IMAGING ASS R1030 LOWER 02-21-2016 [facility] ABDOMINAL YOJANA PAIN UNSPECIFIED R312 OTHER 02-21-2016 [facility] MICROSCOPIC YOJANA HEMATURIA R319 HEMATURIA 02-21-2016 [facility] UNSPECIFIED MEDICAL IMAGING ASS Z6833 BODY MASS 02-21-2016 [facility] INDEX BMI YOJANA 33.0-33.9 ADULT R05 COUGH 01-07-2016 [facility] R509 FEVER 01-07-2016 [facility] UNSPECIFIED MEDICAL IMAGING ASS A084 VIRAL 12-18-2015 [facility] INTESTINAL YOJANA INFECTION UNSPECIFIED M150 PRIMARY 09-30-2015 [facility] GENERALIZED PHYSICIANS LA OSTEOARTHRI TIS Z23 ENCOUNTER 08-30-2015 IS[facility] FOR YOJANA IMMUNIZATIO N Z6831 BODY MASS 08-30-2015 [facility] INDEX BMI YOJANA 31.0-31.9 ADULT 2761 HYPOSMOLALI 08-02-2015 [facility] TY AND/OR [facility]OS[facility] HYPONATREMI INC A 2859 UNSPECIFIED 08-02-2015 [facility] ANEMIA [facility] INC 05262 UNS 08-02-2015 [facility] GASTRITIS&G [facility] ASTRODUODIT INC IS W/O MENTION HEMORR 35088 PAIN IN 08-02-2015 [place] JOINT MEDICAL PELVIC IMAGING ASS REGION AND THIGH 13052 OTHER 07-15-2015 [facility] DYSPNEA AND CO AMBULANCE RESPIRATORY TAXIN ABNORMALITI ES 0093 DIARRHEA OF 07-02-2015 [facility] PRESUMED YOJANA INFECTIOUS ORIGIN 4011 ESSENTIAL 07-02-2015 [facility] HYPERTENSIO YOJANA N, BENIGN 5853 CHRONIC 07-02-2015 [facility] KIDNEY YOJANA DISEASE STAGE III (MODERATE) 7242 LUMBAGO 07-02-2015 [place] [address] OTHER 07-02-2015 ISMAEL MALAISE AND YOJANA FATIGUE V8533 BODY MASS 07-02-2015 [facility] INDEX YOJANA 33.0-33.9 ADULT 7295 PAIN IN 06-24-2015 [facility] SOFT MEDICAL TISSUES OF IMAGING ASS LIMB 7823 EDEMA 06-24-2015 [facility] 2724 OTHER AND 06-21-2015 [facility] UNSPECIFIED YOJANA HYPERLIPIDE SHERYL 58582 DEHYDRATION 06-21-2015 ISMAEL YOJANA 412 OLD 06-21-2015 [facility] MYOCARDIAL YO[facility]NA INFARCTION 79064 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 [facility] NODE YOJANA DYSFUNCTION 68516 ATROPHIC 06-21-2015 [facility] GASTRITIS YOJANA WITHOUT MENTION OF HEMORRHAGE 96750 OTHER 06-21-2015 [facility] ALTERATION [place] [address] FEVER 06-21-2015 [facility] UNSPECIFIED YOJANA 88586 ALTERED 06-21-2015 [facility] MENTAL MEDICAL STATUS IMAGING ASS 7862 COUGH 06-21-2015 [facility] V1079 PERSONAL HX 06-21-2015 [facility] OTH [facility] LYMPHATIC&H EMATOPOIETI C NEOPLASM V1254 PERSONAL HX 06-21-2015 [facility] TIA & CI YOJANA W/O RESIDUAL DEFICITS 5990 URINARY 06-12-2015 [facility] TRACT PHYSICIANS INFECTION LA SITE NOT SPECIFIED 76125 OTH & UNS E 05-28-2015 [facility] COLI [facility] INFECTION INC CLASS ELSW UNS SITE 03531 UNSPECIFIED 05-24-2015 [place] [address] GENERALIZED 05-24-2015 ISMAEL YOJANA OSTEOARTHRO SIS UNSPECIFIED SITE 7213 LUMBOSACRAL 05-24-2015 IS[facility] YOJANA SPONDYLOSIS WITHOUT MYELOPATHY V8534 BODY MASS 05-24-2015 [facility] INDEX YOJANA 34.0-34.9 ADULT 29870 ABDOMINAL 04-15-2015 [facility] PAIN RIGHT PHYSICIANS LOWER GROUP QUADRANT 17650 PAIN IN 03-26-2015 [facility] JOINT, MEM HOSP SHOULDER INC REGION 69960 DIARRHEA 03-26-2015 [facility] INC 69221 OTH MALIG 03-01-2015 [facility] LYMPHOMAS MEDICAL UNS SITE IMAGING ASS XTRANOD&SEBAS ID ORGN 5932 ACQUIRED 03-01-2015 [place] CYST OF MEDICAL KIDNEY IMAGING ASS 90127 ABDOMINAL 03-01-2015 [facility] PAIN, LEFT [facility] LOWER INC QUADRANT 55412 ESOPHAGEAL 01-30-2015 [facility] REFLUX PHYS SURG CTR 67804 GASTR ULCR 01-30-2015 [facility] UNS PHYS SURG ACUT/CHRN CTR W/O HEMOR PERF/OBST 5379 UNSPECIFIED 01-30-2015 [facility] DISORDER EMMA & OF STOMACH DUBILIER AND DUODENUM 83064 NAUSEA 01-30-2015 [facility] ANESTHESIA 80347 ABDOMINAL 01-30-2015 [facility] PAIN, [facility] EPIGASTRIC ANESTHESIA 90857 NONEXUDATIV 01-29-2015 [facility] 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 29371 REGULAR 01-29-2015 [facility] ASTIGMATISM EYE INSTITUTE 11000 OTHER 01-25-2015 [facility] SPECIFIED YOJANA ERYTHEMATOU S CONDITION OTHER 460 ACUTE 12-19-2014 [facility] NASOPHARYNG YOJANA ITIS 89699 ASTHMA, 12-19-2014 [facility] UNSPECIFIED YOJANA , UNSPECIFIED STATUS 4660 ACUTE 12-16-2014 [facility] BRONCHITIS [facility] INC V8535 BODY MASS 12-07-2014 [facility] INDEX YOJANA 35.0-35.9 ADULT 4779 ALLERGIC 10-30-2014 [facility] RHINITIS [facility]NA CAUSE UNSPECIFIED 4019 UNSPECIFIED 10-18-2014 [facility] ESSENTIAL [facility] HYPERTENSIO INC N 73053 COR 10-18-2014 [facility] ATHEROSLERO [facility] UNSPEC INC TYPE VESSEL JENA/MORRO T 23986 CHEST PAIN 10-18-2014 [place] [facility]PEC[facility] 24078 CORONARY 10-11-2014 [facility] OSIS J[facility] MEDICAL G CORONARY ARTERY 7851 PALPITATION 10-11-2014 [facility] MEDICAL G 01041 PRECORDIAL 10-11-2014 [facility] MEDICAL G 4610 ACUTE 10-01-2014 [facility]MA[facility] MAXILLARY [place]JANA SINUSITIS 4720 CHRONIC 10-01-2014 [facility] RHINITIS YOJANA 7881 DYSURIA 10-01-2014 ISMAEL YOJANA 79824 SHORTNESS 09-18-2014 [facility] BREATH MEDICAL IMAGING ASS 4139 OTHER AND 09-12-2014 [facility] UNSPECIFIED [facility] HOSP ANGINA INC PECTORIS 5758 OTHER 09-12-2014 [facility] SPECIFIED [facility] DISORDER OF INC GALLBLADDER 18078 OTHER 09-12-2014 [facility] CONVULSIONS [facility] INC 80057 OTHER CHEST 09-12-2014 [facility] EMERGENCY PHYS V140 PERSONAL 09-12-2014 [facility] HISTORY OF [facility] ALLERGY TO [facility] P PENICILLIN V148 PERSONAL 09-12-2014 [facility] HISTORY [facility] ALLERGY [place] [facility] P SPEC MEDICINAL AGTS V1582 PERS HX 09-12-2014 [facility] TOBACCO USE MEM HOSP PRESENTING INC [facility] V719 OBSERVATION 09-12-2014 [place] FOR MEDICAL UNSPECIFIED IMAGING ASS SUSPECTED CONDITION 71394 UNSPEC 08-28-2014 [facility] DISORDERS YOJANA BURSAE&TEND ONS SHOULDER REGION 13599 CONTUSION 08-28-2014 [facility] OF SHOULDER YOJANA REGION E8889 UNSPECIFIED 08-28-2014 [facility] FALL [facility] V0481 NEED 08-28-2014 [facility] PROPHYLACTI [facility]NA C VACCINATION &INOCULATIO N FLU 9592 INJURY 08-19-2014 ST. OTHER&UNSPE JESSE CIFIED PARTHA SHOULDER&UP PER ARM V5869 LONG-TERM 08-19-2014 ST. (CURRENT) JESSE USE OF PARTHA OTHER MEDICATIONS 9277 HYPERPOTASS 08-14-2014 [facility] EMIA [facility] 7291 UNSPECIFIED 08-06-2014 [facility] MYALGIA [facility] AND MYOSITIS 7827 SPONTANEOUS 08-06-2014 [facility] ECCHYMOSES YO[facility]NA 68545 DIVERTICULI 07-24-2014 [facility] TIS OF [place] COLON 7243 SCIATICA 07-16-2014 [facility] HOSP INC 5693 HEMORRHAGE 05-21-2014 ISMA[facility] OF RECTUM YOJANA AND ANUS 7802 SYNCOPE AND 05-21-2014 [facility] COLLAPSE [place] 5589 OTH&UNSPEC 05-09-2014 [place] NONINFECTIO [facility] P GASTROENTER ITIS&COLITI S 27600 NAUSEA WITH 05-09-2014 [place] VOMITING [facility] P E9390 ANTIDEPTSSN 05-09-2014 [facility] T [facility] P EFFECT THERAPEUTIC USE 25898 OTHER 05-08-2014 [facility] SPECIFIED N EMERGENCY CARDIAC PHYS DYSRHYTHMIA S 5789 UNSPECIFIED 05-08-2014 [facility] HEMORRHAGE YOJANA OF GASTROINTES TINAL TRACT 7852 UNDIAGNOSED 05-08-2014 [place] [facility] CARDIAC SERV MURMURS FOUNDATIO 496 CHRONIC 03-06-2014 [facility] AIRWAY MEDICAL OBSTRUCTION IMAGING ASS NEC 5110 PLEURISY 03-06-2014 [facility] WITHOUT YOJANA MENTION EFFUS/CURRE NT TB 7197 DIFFICULTY 03-06-2014 [facility] IN WALKING MEDICAL IMAGING ASS 32862 CONTUSION 03-06-2014 [facility] OF FOOT YOJANA 8488 OTHER 02-26-2014 [facility] SPECIFIED N EMERGENCY SITES OF PHYS SPRAINS AND STRAINS V141 PERSONAL 02-26-2014 [facility] HOSP ALLERGY INC OTHER ANTIBIOTIC AGENT 57562 UNSPECIFIED 01-26-2014 [facility] N EMERGENCY INFECTION PHYS IN CCE & UNS SITE 7245 UNSPECIFIED 01-26-2014 [facility] BACKACHE N EMERGENCY PHYS 0091 COLITIS 01-04-2014 [facility] ENTERIT&GAS HOME TROENTERIT MEDICAL INF ORIGIN EQUIPME 436 ACUTE BUT 01-04-2014 [facility] ILL-DEFINED HOME MEDICAL CEREBROVASC EQUIPME ULAR DISEASE 7231 CERVICALGIA 10-24-2013 [facility] 3674 PRESBYOPIA 07-03-2013 [facility] V431 LENS 07-03-2013 [facility] MEANS 7224 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-30-2013 [facility] [place] 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 49536 MACULAR 04-04-2013 [facility] DEGENERATIO DON N OF RETINA UNSPECIFIED 25384 STRABISMIC 03-22-2013 [place] [facility] AMBL[place] SERV [facility] 73423 OTHER 03-22-2013 [place] [facility] VITREOUS SERV OPACITIES FOUNDATIO 8052 CLOS FX 02-27-2013 [facility] DORS DON VERTE[facility]RA W/O MENTION SP CORD INJURY 64453 LEUKOCYTOSI 02-23-2013 [facility] EMERGENCY UNSPECIFIED SERVICES V5878 AFTERCARE 02-23-2013 [facility] EMERGENCY SURGERY SERVICES [place] 70367 ACUTE PAIN 02-22-2013 [facility] D[facility] TO EMERGENCY TRAUMA SERVICES 83865 PATHOLOGIC 02-22-2013 [facility] FRACT[facility] OF ANESTHESIA VERTE[facility]RAE GROUP PS V7283 OTHER 02-21-2013 [facility] [place] SPECIFIED RADIOLOGY PRE-OPERATI VE EXAMINATION 97306 DISPLCMT 02-20-2013 [facility] INTER[facility] DISC W/O MYELOPATHY 74375 SPINAL STEN 02-20-2013 [facility] W/O IMAGING ASS NEUROGENIC CLAUDICATIO N 805.2 805.2 FX 02-20-2013 [facility] DORSAL [facility] ER OSE E849.0 E849.0 02-20-2013 [facility] ACCIDENT IN [facility] E885.9 E885.9 FALL 02-20-2013 [facility] SLIPPING, Hospital TRIPPING, OR STUMBLING NEC E8888 OTHER FALL 02-20-2013 [facility] 6259 UNSPEC 02-15-2013 [facility] W/FEMALE GENITAL ORGANS 7840 HEADACHE 02-15-2013 [facility] 8470 NECK SPRAIN 02-15-2013 [facility] 8472 LUMBAR 02-15-2013 [facility] STRAIN SERVICES 8500 CONCUSSION 02-15-2013 [facility] WITH NO EMERGENCY LOSS OF SERVICES CONSCIOUSNE SS 9222 CONTUSION 02-15-2013 [facility] EMERGENCY ABDOMINAL SERVICES WALL 65711 CONTUSION 02-15-2013 [facility] OF HIP [facility] INC 37442 HEAD 02-15-2013 [facility] INJURY, MEDICAL UNSPECIFIED IMAGING ASS V4364 HIP JOINT 02-15-2013 [facility] REPLACEMENT MEDICAL BY OTHER IMAGING ASS MEANS 4659 ACUTE URIS 02-13-2013 [facility] OF DON UNSPECIFIED SITE 7804 DIZZINESS 02-13-2013 [facility] AND DON GIDDINESS 47426 PAIN IN 01-18-2013 [facility] JOINT, [facility] HOS[facility] MULTIPLE INC SITES 48377 PAIN IN 01-17-2013 [facility] JOINT, DON LOWER LEG 9597 INJURY 01-17-2013 [facility] OTHER&UNSPE DON CIFIED KNEE LEG ANKLE&FOOT 84861 UNSPECIFIED 12-27-2012 [place] [address] METHICILLIN 12-23-2012 [facility] RESISTANT [facility] STAPHYLOCOC INC CUS AUREUS 21880 OTHER 12-23-2012 [facility] DISEASES OF [facility] NASAL INC CAVITY AND SINUSES 78149 NASAL 12-06-2012 [facility] MUCOSITIS DON ULCERATIVE 7078 CHRONIC 12-06-2012 [facility] ULCER OF [facility]OS[facility] OTHER INC SPECIFIED SITE 3804 IMPACTED 08-03-2012 [facility] CERUMEN DON 54249 CHRONIC 08-03-2012 [facility] FATIGUE DON SYNDROME 72315 OTHER 06-22-2012 [facility] CHRONIC DON PAIN 7873 FLATULENCE 06-17-2012 [facility] ERUCTATION DON AND GAS PAIN 32156 OTHER 06-03-2012 [facility] SPECIFIED DON TYPES OF CYSTITIS 4293 CARDIOMEGAL 05-14-2012 [facility] 14831 NONSPECIFIC 05-14-2012 [facility] EMERGENCY ELECTROCARD SERVICES IOGRAM V1090 PERSONAL 05-14-2012 [facility] HISTORY MEDICAL UNSPECIFIED IMAGING ASS MALIGNANT NEOPLASM V711 OBSERVATION 05-14-2012 [place] FOR MEDICAL SUSPECTED IMAGING ASS MALIGNANT NEOPLASM 81289 OTHER 04-28-2012 NEW MALIGNANT [facility] PSC OF SPLEEN 3898 OTHER 02-17-2012 [facility] SPECIFIED DON FORMS OF HEARING LOSS 66078 GASTROJEJ 02-17-2012 [facility] ULCR UNS DON ACUT/CHRN W/O HEMOR PERF/OBST 23043 PAIN IN 01-06-2012 [facility] JOINT, SITE [facility] UNSPECIFIED 6160 CERVICITIS 12-16-2011 [facility] AND MEDICAL ENDOCERVICI IMAGING ASS TIS 6203 ACQUIRED 12-16-2011 [facility] ATROPHY OF MEDICAL OVARY AND IMAGING ASS FALLOPIAN TUBE 6219 UNSPECIFIED 12-16-2011 [facility] DISORDER MEDICAL OF UTERUS IMAGING ASS 99418 OSTEOARTHRO 12-11-2011 [facility] S INVLV MX DON [place]IT[place] [address] HEMATURIA 11-30-2011 [facility] UNSPECIFIED DON 22064 OTHER 11-30-2011 [facility] SPECIFIED DON DISORDERS OF URINARY TRACT 51914 UNSPECIFIED 10-19-2011 [facility] OTALGIA DON 84473 MUSCLE 10-19-2011 [facility] WEAKNESS DON (GENERALIZE D) 02718 DIVERTICULO 07-22-2011 [facility] SIS OF DON COLON 1104 DERMATOPHYT 07-10-2011 [facility] OSIS OF FOOT 9168 OTH&UNS SUP 07-07-2011 [facility] INJR HIP DON THI LEG&ANK W/O MENTION INF 9190 ABRASION/FR 06-26-2011 [facility]URN EMERGENCY OTH MX&UNS SERVICES SITE W/O INF 5950 ACUTE 05-28-2011 NEW CYSTITIS [facility] 6929 CONTACT 05-22-2011 [facility] DERMATITIS& OTHER ECZEMA DUE UNSPEC CAUSE 7011 ACQUIRED 05-22-2011 [facility] KERATODERMA 76852 OTHER 04-20-2011 [facility] SPECIFIED DON CIRCULATORY SYSTEM DISORDERS 61550 CONTUSION 04-20-2011 [facility] MULTIPLE DON SITES SHOULDER&UP PER ARM 5952 OTHER 02-05-2011 [facility] CYSTITIS [facility] P 1129 CANDIDIASIS 01-07-2011 [facility] OF DON UNSPECIFIED SITE 4280 CONGESTIVE 01-07-2011 [facility] HEART DON FAILURE UNSPECIFIED 2768 HYPOPOTASSE 12-31-2010 [facility] INC 8910 OPEN WOUND 10-22-2010 [facility] KNEE DON LEG&ANK WITHOUT MENTION COMP V5832 ENCOUNTER 10-22-2010 [facility] FOR REMOVAL DON OF SUTURES 56716 PHACOLYTIC 08-06-2010 [facility] 4618 OTHER ACUTE 07-29-2010 [facility] SINUSITIS DON 1880 MALIGNANT 06-26-2010 [facility] NEOPLASM OF H UROLOGY [facility] OF [facility] URINARY BLADDER 80624 SPASM OF 06-06-2010 [facility] MUSCLE DON 57886 DEGEN 05-04-2010 [facility] LUMBAR/LUMB EMERGENCY OSACRAL SERVICES [facility] RAL DISC OTHER MALIG 04-22-2010 NEW LYMPHOMAS [place] [facility] NODES [facility] MULTIPLE SITES V6709 FOLLOW-UP 01-17-2010 [facility] EXAMINATION AND HAND FOLLOWING SURGEONS OTHER [facility] SURGERY 6256 FEMALE 01-13-2010 [facility], STRESS DON R INCONTINENC E V7651 SPECIAL 01-13-2010 [facility], SCREENING DON R FOR MALIGNANT NEOPLASMS COLON 1629 MALIGNANT 09-09-2009 [facility] NEOPLASM [facility] UNSPEC ASSOCIATES SITE 4148 OTHER SPEC 08-30-2009 [facility], FORMS DON R CHRONIC ISCHEMIC HEART DISEASE 8208 CLOSED 08-30-2009 [facility], FRACTURE DON R UNSPECIFIED PART NECK FEMUR 01026 POSTPROCEDU 08-21-2009 [facility] PROF SERV 08233 OTHER 08-20-2009 PATHOLOGY & CLOSED CYTOLOGY TRANSCERVIC LAB AL FRACTURE OF FEMUR 98679 INF DUE OTH 08-19-2009 [facility]-NEGATIVE INC ORGANISMS CCE & UNS SITE 20081 ABDOMINAL 08-19-2009 [facility] PAIN OTHER EMERGENCY SPECIFIED SERVICES SITE ASSOCIATES 26326 CLOSED 08-19-2009 [facility] DISLOCATION [facility]ANCE OF HIP SERVICE UNSPECIFIED SITE 9596 INJURY 08-19-2009 [facility] OTHER AND AMBULANCE UNSPECIFIED SERVICE HIP AND THIGH E8859 FALL FROM 08-19-2009 [facility] OTHER EMERGENCY SLIPPING SERVICES TRIPPING OR ASSOCIATES STUMBLING 70854 UNSPECIFIED 08-14-2009 [facility] V0382 NEED PROPH 07-31-2009 [facility], VACCINATION DON R AGAINST STREP PNEUMONE 21833 SPRAIN AND 06-10-2009 [facility], STRAIN OF DON R UNSPECIFIED SITE OF WRIST 78559 UNSPECIFIED 06-10-2009 [facility], SITE OF DON R ANKLE SPRAIN AND STRAIN E8490 PLACE OF 06-07-2009 [facility] OCC[facility]RENCE, [facility] E8844 ACCIDENTAL 06-07-2009 [facility] FALL FROM EMERGENCY BED SERVICES [facility] 46845 SECONDARY 09-19-2008 [facility]DE[facility] 73387 SPONDYLOSIS 08-22-2008 NEW UNSPEC [place] SITE W/O CLINIC PSC MENTION MYELOPATHY V1072 PERSONAL 08-22-2008 NEW HISTORY OF [facility] PSC DISEASE 68437 ATRIAL 07-01-2008 [facility] N 69565 ABDOMINAL/P 07-01-2008 [facility] SWELLING MASS/LUMP UNSPEC SITE 93436 UNSPECIFIED 03-02-2008 [facility], DON R OSTEOPOROSI S Allergies, Adverse Reactions, Alerts Type Drug Allergy Propensity to adverse reactions to drug Adverse Reaction to Substance Substance Reaction Severity Penicillin Unknown Unknown Morphine Unknown Unknown Penicillin G Unknown Unknown Promethazine Unknown Unknown Clinical Alert Notifications Alert Asthma: no influenza vaccine in the last 365 days Medications Na ND Rx Da Fi Fi Am Da Di Ph RX Ph St me C No te ll ll ou ys ag ar # ys at rm s nt no ma ic us Or Da si cy ia de te s n re d HY [address] 40 -1 OC 60 5- Lo OD 36 20 ng ON 56 13 er -A 2 CE Ac TA ti OH ve NO PH EN 5- 32 5 KE 00 04 0 No TO 40 -1 RO 93 0- Lo LA 79 20 ng C 60 13 er 60 1 Ac MG ti /2 ve ML AL Immunization Name Date Rout CVX Reac Dose Comm Prov Is Faci e tion ent ider Refu lity Give sed n IIV3 - 141 STEP No STEP 1-20 HENS HENS VACC 10 DON INE SPLI T VIRU DON S 0.5 ML DOSA GE IM USE IIV3 09 141 STEP No STEP 3-20 HENS HENS VACC 09 , , INE DON DON SPLI R R T VIRU S 0.5 ML DOSA GE IM USE PPSV 09- 33 STEP No STEP 23 3-20 HENS HENS VACC 09 , , INE DON DON 2 R R YRS OR OLDE R FOR SUBQ /IM USE IIV3 08-08 141 STEP No STEP 7-20 HENS HENS VACC 08 , , INE DON DON SPLI R R T VIRU S 0.5 ML DOSA GE IM USE Vital Signs 02-20-2013 16:55 Name Value Interpretat Reference Comment ion Range Body 98.5 [degF] Temperature BP 77 mm[Hg] Diastolic BP Systolic 160 mm[Hg] Heart 60 /min Rate/Pulse O2% 98 % Respiratory 19 /min Rate 02-20-2013 16:53 Name Value Interpretat Reference Comment ion Range Body 98.5 [degF] Temperature 02-20-2013 15:07 Name Value Interpretat Reference Comment ion Range BP 60 mm[Hg] Diastolic BP Systolic 142 mm[Hg] Heart 60 /min Rate/Pulse O2% 100 % Respiratory 18 /min Rate 02-15-2013 23:03 Name Value Interpretat Reference Comment ion Range BP 61 mm[Hg] Diastolic BP Systolic 161 mm[Hg] Heart 58 /min Rate/Pulse O2% 94 % Respiratory 20 /min Rate 02-15-2013 20:59 Name Value Interpretat Reference Comment ion Range BP 51 mm[Hg] Diastolic BP Systolic 182 mm[Hg] Heart 48 /min Rate/Pulse O2% 96 % Respiratory 20 /min Rate Results Labs Lab Lab Date Result Refere Interp Status Commen Order Detail nces retati t Range on Basic metabolic panel (08-14-2017 06:50) Serum = 20 7-18 complet or 017 mg/dL ed plasma 06:50 urea nitroge n measure men Serum = 138 136-145 complet sodium 017 mmoL/L ed measure 06:50 ment Serum = 3.8 3.5-5.1 complet potassi 017 mmoL/L ed um 06:50 measure ment Serum = 93 74-106 complet or 017 mg/dL ed plasma 06:50 glucose measure ment (mas Estimat = 47 59- complet ed 017 ML/MIN ed glomeru 06:50 lar filtrat ion rate (GF Comment: REFERENCE RANGE: >60 ML/MIN/1.73 SQUARE METERS Comment: If this patient is -Kittitian, then multiply the Comment: result by 1.210. Estimat = 35 50-200 complet ion of 017 ML/MIN ed creatin 06:50 ine renal clearan ce Serum = 1.1 0.55-1. complet or 017 mg/dL 02 ed plasma 06:50 creatin ine measure ment ( Carbon = 32 21.0-32 complet dioxide 017 mmoL/L .0 ed 06:50 measure ment Serum = 100 98-107 complet or 017 mmoL/L ed plasma 06:50 chlorid e measure ment (mo Serum = 8.8 8.5-10. complet or 017 mg/dL 1 ed plasma 06:50 calcium measure ment (mas Procedures Procedure DOS Code Location Performer Comment BLOOD [address] COUNT 7 [facility] COMPLETE PARTHA PARTHA AUTO&AUTO DIFRNTL WBC COLLECTIO [address] N VENOUS 7 [facility] BLOOD PARTHA PARTHA VENIPUNCT URE RADEX [address] HUMERUS 7 [facility] MINIMUM 2 [facility] PARTHA VIEWS CULTURE [address] BACTERIAL 7 [facility] PARTHA PARTH[place] [address] HEAD/BRAI 7 [facility] N W/O PARTHA PARTHA CONTRAST MATERIAL RADIOLOGI [address] C 7 [facility] EXAMINATI PARTHA PARTHA ON CHEST SINGLE VIEW FRONTAL URNLS DIP [address] 7 [facility] STICK/TAB PARTHA PARTHA LET REAGENT AUTO MICROSCOP Y BASIC [address] METABOLIC 7 [facility] PANEL PARTHA PARTHA CALCIUM TOTAL ECG [address] ROUTINE 7 [facility] ECG PARTHA PARTHA W/LEAST 12 LDS TRCG ONLY W/O I&R BASIC 85117 [facility] SALCIDO METABOLIC 7 [facility] PANEL INC INC CALCIUM TOTAL BASIC 21207 O[facility] SALCIDO METABOLIC 7 [facility] PANEL INC INC CALCIUM TOTAL BLOOD 09727 [facility] SALCIDO COUNT 7 [facility] COMPLETE INC INC AUTO&AUTO DIFRNTL WBC NEBULIZER E0570 MICHELLE MARTINEZ WITH 7 [facility] COMPRESSO MEDICAL MEDICAL R EQUIPME EQUIPME RADIOLOGI 77433 [facility] C EXAM 7 MEDICAL CHEST 2 IMAGING VIEWS ASS FRONTAL&L ATERAL ECG 02768 [facility] ROUTINE 7 PHYSICIAN ECG S GROUP W/LEAST 12 LDS I&R ONLY ECG 56140 O[facility] SALCIDO ROUTINE 7 [facility] ECG INC INC W/LEAST 12 LDS TRCG ONLY W/O I&R INTERROGA 16506 [facility] TION EVAL 7 PHYSICIAN REMOTE S GROUP </90 D 1/2/FRENCH TRANSLATOR LEAD PM ECG 83362 OMARI CALLEON ROUTINE 7 [facility] ECG INC INC W/LEAST 12 LDS TRCG ONLY W/O I&R ECG 20903 [facility] ROUTINE 7 PHYSICIAN ECG S GROUP W/LEAST 12 LDS I&R ONLY DUP-SCAN 33334 [facility] XTR VEINS 7 MEDICAL IMAGING [place]A ASS L/LIMITED STUDY BASIC 52544 OMARI SACLIDO METABOLIC 7 [facility] PANEL INC INC CALCIUM TOTAL HOSPITAL G0378 OMARI OMARI OBSERVATI 7 [facility] ON INC INC SERVICE PER HOUR NONINVASI 02032 O[facility]I OMARI VE 7 [facility] EAR/PULSE INC INC OXIMETRY SINGLE DETER COLLECTIO 42223 O[facility]I CALLEON N VENOUS 7 [facility]OS[facility] BLOOD INC INC VENIPUNCT URE BLOOD 05461 O[facility]I SALCIDO COUNT 7 [facility] COMPLETE INC INC AUTO&AUTO DIFRNTL WBC BLOOD 89423 [facility] SALCIDO COUNT 7 [facility] COMPLETE INC INC AUTO&AUTO DIFRNTL WBC PACEMAKER C1785 O[facility]I OMARI DUAL 7 [facility] CHAMBER INC INC RATE-RESP ONSIVE ANES 37524 [facility] PERMANENT 7 ANESTH OF THE TRANSVENO BLUE US PACEMAKER INSERTION LEAD C1898 OMARI CALLEON PACEMKR 7 [facility] HOS[facility] OTH THAN INC [place] [address] OMARI SALCIDO NEW/RPLC 7 [facility] PRM INC INC PACEMAKER W/TRANSV ELTRD [facility] G0378 OMARI OMARI OBSERVATI 7 [facility] ON INC INC SERVICE PER HOUR RADIOLOGI 88130 [facility] C 7 MEDICAL EXAMINATI IMAGING ON CHEST ASS SINGLE VIEW FRONTAL ECG 03243 [facility] RIKI ROUTINE 7 PHYSICIAN ECG S GROUP W/LEAST 12 LDS I&R ONLY BASIC 78126 OMAIR SALCIDO METABOLIC 7 [facility] [place] [address] OMARI SALCIDO INFUSION 7 [facility] THERAPY/P INC INC ROPHYLAXI S /DX 1ST TO 1 HR THERAPEUT 76585 [facility]I SACLIDO IC 7 [facility] INJECTION INC INC IV PUSH EACH NEW DRUG PRESSURIZ 94161 OMARI SALCIDO ED/NONPRE 7 [facility]OS[facility] SSURIZED INC INC INHALATIO N TREATMENT ECG 80493 O[facility]I SALCIDO ROUTINE 7 [facility] ECG INC INC W/LEAST 12 LDS TRCG ONLY W/O I&R LOCM Q9967 [facility]I SALCIDO [phone] [facility] MG/ML INC INC IODINE CONCENTRA TION PER ML CT THORAX 20199 [facility] MEDICAL W/[place] [address] O[facility] SALCIDO UREA 7 [facility] NITROGEN INC INC QUANTITAT RIGO COLLECTIO 56607 O[facility]I SALCIDO N VENOUS 7 [facility] BLOOD INC INC VENIPUNCT URE CREATININ 56938 O[facility]I SALCIDO E BLOOD 7 [facility] INC INC ECG 11145 [facility] RIKI ROUTINE 7 PHYSICIAN ECG S GROUP W/LEAST 12 LDS I&R ONLY ECG 04188 O[facility]I SALCIDO ROUTINE 7 [facility] ECG INC INC W/LEAST 12 LDS TRCG ONLY W/O I&R TECHNETIU A9502 OMARI Hernandez TC-99M 7 [facility]OS[facility] TETROFOSM INC INC IN DX PER STUDY DOSE CV STRS 32082 O[facility]I SALCIDO TST 7 [facility] XERS&/OR INC INC RX CONT ECG TRCG ONLY MYOCARDIA 97690 OMARI SALCIDO L SPECT 7 [facility] MULTIPLE INC INC STUDIES INJECTION J2785 OMARI SALCIDO 7 [facility] REGADENOS INC INC ON 0.1 MG ECG 02858 OMARI SALCIDO ROUTINE 7 [facility] ECG INC INC W/LEAST 12 LDS TRCG ONLY W/O I&R ECG 66074 OMARI SALCIDO ROUTINE 7 [facility] ECG INC INC W/LEAST 12 LDS TRCG ONLY W/O I&R XTRNL ECG 16994 OMARI SALCIDO & 48 HR 7 [facility] RECORDING INC INC ECG 23812 [facility] RIKI ROUTINE 7 PHYSICIAN ECG S GROUP W/LEAST 12 LDS I&R ONLY ECHO 33974 OMARI SALCIDO TTHRC R-T 7 [facility] 2D INC INC W/WOM-MOD E COMPL SPEC&COLR D ECG 30615 [facility] RIKI ROUTINE 7 PHYSICIAN ECG S GROUP W/LEAST 12 LDS I&R ONLY ECG 72801 OMARI SALCIDO ROUTINE 7 [facility] ECG INC INC W/LEAST 12 LDS TRCG ONLY W/O I&R ECG 64295 OMARI OMARI ROUTINE 7 [facility]OS[facility] ECG INC INC W/LEAST 12 LDS TRCG ONLY W/O I&R ECG 20228 OMARI GUEVARA JR ROUTINE 7 [facility] W/LEAST P 12 LDS I&R ONLY RADEX 45776 [facility] SPINE 7 MEDICAL CERVICAL IMAGING 4 OR 5 ASS VIEWS RADIOLOGI 89854 [facility] C EXAM 7 MEDICAL CHEST 2 IMAGING VIEWS ASS FRONTAL&L ATERAL BLOOD 24638 OMARI SALCIDO COUNT 7 [facility] COMPLETE INC INC AUTO&AUTO DIFRNTL WBC BASIC 17047 OMARI SALCIDO METABOLIC 7 [facility] PANEL INC INC CALCIUM TOTAL CT LOWER 86411 [facility] EXTREMITY 7 MEDICAL W/O IMAGING CONTRAST ASS MATERIAL CT PELVIS 24191 OMARI OMARI W/O 7 [facility]OS[facility] CONTRAST INC INC MATERIAL INJECTION J1100 ISMAEL GUEVARA JR 7 DEXAMETHO SONE SODIUM PHOSPHATE 1 MG COMPRE 36574 [place] [facility] AUDIOMETR 6 NOSE AND CLARY Y THROAT THRESHOLD EVAL SP RECOGNIJ TYMPANOME 88857 [place] [facility] TRY 6 NOSE AND CLARY THROAT BASIC 73605 COMBINED COMBINED METABOLIC 6 PHYSICIAN PHYSICIAN PANEL S LA S LA CALCIUM TOTAL BLOOD 67115 COMBINED COMBINED COUNT 6 PHYSICIAN PHYSICIAN COMPLETE S LA S LA AUTO&AUTO DIFRNTL WBC SMR PRIM 19566 OMARI SALCIDO SRC 6 [facility] GRAM/GIEM INC INC SA STAIN BCT FUNGI/YAMILKA L CUL BACT 49806 OMARI SALCIDO XCPT 6 [facility] URINE INC INC BLOOD/[place] [address] OMARI SALCIDO SURG 6 [facility] PATHOLOGY INC INC GROSS&SAJAN ROSCOPIC EXAM CELL 16423 OMARI SALCIDO COUNT 6 [facility] MISC BODY INC INC FLUIDS W/DIFFERE NTIAL COUNT CYTP EVAL 07017 OMARI SALCIDO FINE 6 [facility] NEEDLE INC INC ASPIRATE INTERP & REPORT ARTHROCEN 32271 LORAINE SERRANO TESIS 6 MEDICAL LATRELL ASPIR&/IN IMAGING J MAJOR ASS JT/BUR[place] [address] OMARI SALCIDO EXTREMITY 6 [facility] NON-VASC INC INC REAL-TIME IMG LMTD BIOPSY 41003 OMARI SALCIDO SOFT 6 [facility] TISSUE INC INC PELVIS&[place] [address] OMARI SALCIDO GUIDANCE 6 [facility] NEEDLE INC INC PLACEMENT IMG S&I RADEX HIP 52689 [facility] ALL 6 MEDICAL UN[place]ATERA IMAGING L WITH ASS PELVIS [address] [facility] SERVICE 6 AMBULANCE AMBULANCE BLS SERVICE SERVICE NONEMERGE NCY TRANSPORT GROUND A0425 [facility] PER SERVICE SERVICE STATUTE MILE RADIOLOGI 06302 [facility] 6 MEDICAL LATRELL EXAMINATI IMAGING ON CHEST ASS SINGLE VIEW FRONTAL RADIOLOGI 78149 [facility] C 6 MEDICAL ANGELIKA EXAMINATI IMAGING ON CHEST ASS SINGLE VIEW FRONTAL ECG 02954 OMARI ROGER ROUTINE 6 [facility] W/LEAST P 12 LDS I&R ONLY ANESTHESI 72149 [facility] OPEN 6 ANESTH RAMO PROCEDURE OF THE S UPPER BLUE 2/3 FEMUR NOS RADEX HIP 72078 [facility] 6 MEDICAL ANGELIKA UNILATERA IMAGING L WITH ASS PELVIS 2-3 VIEWS GROUND A0425 [facility]ULANCE AMBULANCE PER SERVICE SERVICE STATUTE MILE REPLACEME [id number] OMARI SALCIDO NT LT HIP 6 [facility]OS[facility] JOINT INC INC CERAMIC POLY SYNTH OPEN AMB A0427 [facility] SERVICE 6 AMBULANCE AMBULANCE ALS SERVICE SERVICE EMERGENCY TRANSPORT LEVEL 1 OPTX FEM 81567 [facility] PETTEY FX PROX 6 PHYSICIAN JAM OTILIA NCK S GROUP INT FIXJ/PROS TC RPLCMT RADIOLOGI 76638 [facility] C 6 MEDICAL ANGELIKA EXAMINATI IMAGING ON FEMUR ASS MINIMUM 2 VIEWS RADIOLOGI 97407 [facility] C 6 MEDICAL EXAMINATI IMAGING ON CHEST ASS SINGLE VIEW FRONTAL ANES 04247 [facility] LOWER 6 ANESTH SHE INTESTINE OF THE BLUE ENDOSCOPY DISTAL DUODENUM INJECTION J1100 ISMAEL GUEVARA JR 6 YOJANA DWI DEXAMETHO SONE SODIUM PHOSPHATE 1 MG URNLS DIP 43094 ISMAEL ISMAEL JR 6 YOJANA DWI STICK/TAB LET RGNT NON-AUTO W/[place] [address] [facility] SALVADOR ALL ABDOMEN & 6 MEDICAL PELVIS IMAGING W/O ASS CONTRAST MATERIAL RADIOLOGI 79328 [facility] EXAM 6 MEDICAL ANGELIKA CHEST 2 IMAGING VIEWS ASS FRONTAL&L ATERAL INJECTION J1030 ISMAEL GUEVARA JR 6 YOJANA DWI METHYLPRE DNISOLONE ACETATE 40 MG COLLECTIO 73117 OMARI SALCIDO N VENOUS 6 [facility] BLOOD INC INC VENIPUNCT URE BLOOD 83711 OMARI SALCIDO COUNT 6 [facility] COMPLETE INC INC AUTO&AUTO DIFRNTL WBC BASIC 46634 OMARI SALCIDO METABOLIC 6 [facility] PANEL INC INC CALCIUM TOTAL BASIC 33748 COMBINED COMBINED METABOLIC 5 PHYSICIAN PHYSICIAN PANEL S LA S LA CALCIUM TOTAL BLOOD 19204 COMBINED COMBINED COUNT 5 PHYSICIAN PHYSICIAN COMPLETE S LA S LA AUTO&AUTO DIFRNTL WBC CYANOCOBA 17940 COMBINED COMBINED JEWEL 5 PHYSICIAN PHYSICIAN VITAMIN S LA S LA B-12 ADMINISTR G0008 ISMAEL GUEVARA JR ATION OF 5 YOJANA DWI INFLUENZA VIRUS VACCINE URNLS DIP 72132 ISMAEL GUEVARA JR 5 [place] DWI STICK/TAB LET RGNT NON-AUTO W/O MICRSCP INFLUENZA Q2038 ISMAEL ISMAEL JR VACC 5 YOJANA DWI SPLIT VIRUS 3 YRS & > IM FLUZONE RADEX HIP 14111 OMARI SALCIDO 5 [facility] UNILATERA INC INC L COMPLETE MINIMUM 2 VIEWS BASIC 65198 OMARI SALCIDO METABOLIC 5 [facility] PANEL INC INC CALCIUM TOTAL RADEX HIP 41379 [facility] ALL 5 MEDICAL UNILATERA IMAGING L 1 VIEW ASS BLOOD 19455 OMARI SALCIDO COUNT 5 [facility] COMPLETE INC INC AUTO&AUTO DIFRNTL WBC COLLECTIO 25173 OMARIBG SALCIDO N VENOUS 5 [facility] BLOOD INC INC VENIPUNCT URE GROUND A0425 NARINDER NARINDER MILEAGE 5 CO CO PER AMBULANCE AMBULANCE STATUTE TAXIN TAXIN MILE AMB A0427 NARINDER NARINDER SERVICE 5 CO CO ALS AMBULANCE AMBULANCE EMERGENCY TAXIN TAXIN TRANSPORT LEVEL 1 [facility] [address] COMBINED COMBINED METABOLIC 5 PHYSICIAN PHYSICIAN PANEL S LA S LA CALCIUM TOTAL COLLECTIO 43534 ISMAEL GUEVARA JR N VENOUS 5 YOJANA DWI BLOOD VENIPUNCT URE BLOOD 63371 COMBINED COMBINED COUNT 5 PHYSICIAN PHYSICIAN COMPLETE S LA S LA AUTO&AUTO DIFRNTL WBC DUP-SCAN 38834 LORAINE SALVADOR ALL XTR VEINS 5 MEDICAL IMAGING UNILATERA ASS L/LIMITED STUDY OBSERVATI 19026 SIMAEL GUEVARA JR ON CARE 5 YOJANA DWI DISCHARGE MANAGEMEN T SBSQ 66398 ISMAEL GUEVARA JR OBSERVATI 5 YOJANA DWI ON CARE/DAY 25 MINUTES INITIAL 68796 ISMAEL GUEVARA JR OBSERVATI 5 YOJANA DWI ON CARE/DAY 50 MINUTES RADIOLOGI 59451 LORAINE SALVADOR ALL C EXAM 5 MEDICAL CHEST 2 IMAGING VIEWS ASS FRONTAL&[place] [address] LORAINE SALVAODR ALL HEAD/BRAI 5 MEDICAL N W/O IMAGING CONTRAST ASS MATERIAL URNLS DIP 49776 COMBINED COMBINED 5 PHYSICIAN PHYSICIAN STICK/TAB S LA S LA LET REAGENT AUTO MICROSCOP Y THERAPEUT 96208 [facility] IC 5 [facility] PROPHYLAC INC INC TIC/DX INJECTION SUBQ/IM INJECTION J1335 [facility] 5 [facility] ERTAPENEM INC INC SODIUM 500 MG CULTURE 17730 [facility] BCT 5 [facility] ISOL&PRSM INC INC PTV ID ISOLATE EA URINE CULTURE 84587 O[facility] BACTERIAL 5 [facility] INC INC QUANTTATI VE COLONY COUNT URINE SUSCEPTIB 32691 OMAR[facility] SALCIDO LTY STDY 5 [facility] ANTIMICRB INC INC IAL MICRO/AGA R DILUTJ INJECTION J1100 ISMAEL ISMAEL JR 5 YOJANA DWI DEXAMETHO SONE SODIUM PHOSPHATE 1 MG URNLS DIP 17720 ISMAEL ISMAEL JR 5 YOJANA DWI STICK/TAB LET RGNT NON-AUTO W/O MICRSCP BASIC 40452 OMARI SALCIDO METABOLIC 5 [facility] PANEL INC INC CALCIUM TOTAL BLOOD 03591 OMARI SALCIDO COUNT 5 [facility] HEMATOCRI INC INC T IADNA-DNA 37225 OMARI SALCIDO /RNA GI 5 [facility] PTHGN INC INC MULTIPLEX PROBE TQ 11-[address] [place] [address] [facility] ABDOMEN & 5 MEDICAL LATRELL PELVIS IMAGING W/[place] [address] OMARI SALCIDO UREA 5 [facility] NITROGEN INC INC QUANTITAT RIGO COLLECTIO 89661 OMARI SALCIDO N VENOUS 5 [facility] BLOOD INC INC VENIPUNCT URE CREATININ 85352 OMARI SALCIDO E BLOOD 5 [facility] INC INC CULTURE 81661 O[facility] SAL[facility] BACTERIAL 5 [facility] INC INC [place]TTAT[place] [address] CHIPPS MANUELA SURG 5 EMMA & ORTEGA PATHOLOGY DUBILIER GROSS&SAJAN ROSCOPIC EXAM ANES 76122 [facility] UPPER GI 5 [facility] ENDOSCOPY ANESTHESI PROXIMAL A TO DUODENUM SPECIAL 34620 CHIPPS MANUELA STAIN 5 EMMA & ORTEGA GROUP 1 DUBILIER MICROORGA NISMS I&R EGD 64752 RELIGION RELIGION TRANSORAL 5 PHYS SURG PHYS SURG BIOPSY CTR CTR SINGLE/MU LTIPLE OPHTH 79982 [place] [facility] XM&EVAL INSTITUTE COMPRHNSV ESTAB PT 1/> FUNDUS 66498 [facility] W/INTERPR ETATION & REPORT DETERMINA 82730 LORAINE WILKINS TION 5 [facility] E STATE CULTURE 77455 OMARI SALCIDO BCT 5 [facility] ISOL&PRSM INC INC PTV ID ISOLATE EA URINE CULTURE 64545 OMARI SALCIDO BACTERIAL 5 [facility] INC INC QUANTTATI VE COLONY COUNT URINE SUSCEPTIB 19470 OMARI SALCIDO LTY STDY 5 [facility] ANTIMICRB INC INC IAL MICRO/AGA R DILUTJ URNLS DIP 49302 ISMAEL GUEVARA JR 5 YOJANA DWI STICK/TAB LET RGNT NON-AUTO W/O MICRSCP THERAPEUT 32191 ISMAEL GUEVARA JR IC 5 YOJANA DWI PROPHYLAC TIC/DX INJECTION SUBQ/IM INJECTION J1040 ISMAEL GUEVARA JR 5 YOJANA DWI METHYLPRE DNISOLONE ACETATE 80 MG IAADI 66669 OMARI SALCIDO INFFLUENZ 5 [facility] A VIRUS INC INC IAADI 36739 OMARI SALCIDO INFLUENZA 5 [facility] B VIRUS INC INC CULTURE 30250 OMARI SALCIDO BACTERIAL 5 [facility] BLOOD INC INC AEROBIC W/ID ISOLATES BLOOD 92585 OMARI SALCIDO COUNT 5 [facility] COMPLETE INC INC AUTO&AUTO DIFRNTL WBC INJECTION J2405 OMARI SALCIDO 5 [facility] ONDANSETR INC INC ON HCL PER 1 MG THER 31953 OMARI SALCIDO PROPH/DX 5 [facility] NJX IV INC INC PUSH SINGLE/1S T SBST/DRUG COMPREHEN 07450 OMARI SALCIDO SIVE 5 [facility] METABOLIC INC INC PANEL URNLS DIP 51166 OMARI SALCIDO 5 [facility] STICK/TAB INC INC LET REAGENT AUTO MICROSCOP Y RADIOLOGI 82607 [place] [facility] [place] 5 MEDICAL [facility]RE[facility] EXAMINATI IMAGING ON CHEST ASS SINGLE VIEW FRONTAL URNLS DIP 46315 ISMEAL ISMAEL JR 5 YOJANA DWI STICK/TAB LET RGNT NON-AUTO W/O MICRSCP CULTURE 34757 OMARI SALCIDO BACTERIAL 5 [facility] INC INC QUANTTATI VE COLONY COUNT URINE INJECTION J1100 ISMAEL ISMAEL 4 YOJANA YOJANA DEXAMETHO SONE SODIUM PHOSPHATE 1 MG THERAPEUT 14378 ISMAEL GUEVARA JR IC 4 YOJANA DWI PROPHYLAC TIC/DX INJECTION SUBQ/IM THERAPEUT 84702 ISMAEL ISMAEL JR IC 4 YOJANA DWI PROPHYLAC TIC/DX INJECTION SUBQ/IM INJECTION J1030 ISMAEL GUEVARA JR 4 YOJANA DWI METHYLPRE DNISOLONE ACETATE 40 MG ECHO 95130 OMARI SALCIDO TTHRC R-T 4 [facility]OS[facility] 2D INC INC W/WOM-MOD E COMPL SPEC&COLR D INJECTION J1100 ISMAEL GUEVARA JR 4 YOJANA DWI DEXAMETHO SONE SODIUM PHOSPHATE 1 MG THERAPEUT 82168 ISMAEL GUEVARA JR IC 4 YOJANA DWI PROPHYLAC TIC/DX INJECTION SUBQ/IM URNLS DIP 97541 ISMAEL GUEVARA JR 4 YOJANA DWI STICK/TAB LET RGNT NON-AUTO W/O MICRSCP CV STRS 51631 OMARI GUEVARA JR TST 4 [facility] XERS&/OR HOSPITAL RX CONT P ECG I&R ONLY MYOCARDIA 65160 OMARI Ireland SPECT 4 [facility] MULTIPLE INC INC STUDIES TECHNETIU A9500 OMARI Hernandez TC-99M 4 [facility] SESTAMIBI INC INC DX PER STUDY DOSE CV STRS 56026 OMARI SALCIDO TST 4 [facility] XERS&/OR INC INC RX CONT ECG TRCG ONLY INJECTION J2785 OMARI SALCIDO 4 [facility] REGADENOS INC INC ON 0.1 MG BLOOD 76318 OMARI SALCIDO COUNT 4 [facility] COMPLETE INC INC AUTO&AUTO DIFRNTL WBC CREATINE 35349 OMARI SALCIDO KINASE 4 [facility] [place] [address] OMARI OMARI TROPONIN 4 [facility] QUANTITAT INC INC RIGO ECG 50915 OMARI GUEVARA JR ROUTINE 4 [facility] W/LEAST P 12 LDS I&[place] [address] OMARI OMARI THYROID 4 [facility] STIMULATI INC INC NG HORMONE TSH CREATINE 93359 OMARI OMARI KINASE MB 4 [facility] FRACTION INC INC ONLY ECG 14255 OMARI SALCIDO ROUTINE 4 [facility] ECG INC INC W/LEAST 12 LDS TRCG ONLY W/O I&R RADIOLOGI 72881 [facility] [place] 4 [facility] EXAMINATI IMAGING ON CHEST ASS SINGLE VIEW FRONTAL COMPREHEN 56162 OMARI OMARI SIVE 4 [facility] METABOLIC INC INC PANEL ARTHROCEN 02002 ISMAEL GUEVARA TESIS 4 YOJANA YOJANA ASPIR&/IN J INTERM JT/BURS W/O US INFLUENZA Q2038 ISMAEL GUEVARA JR VACC 4 YOJANA DWI SPLIT VIRUS 3 YRS & > IM FLUZONE INJECTION J1040 ISMAEL GUEVARA JR 4 YOJANA DWI METHYLPRE DNISOLONE ACETATE [address] IN[address] 4 JESSE MOLINA HYDROMORP PARTHA PARTHA ASAEL UP TO [address] SHOULDER 4 JESSE MOLINA COMPLETE PARTHA PARTHA MINIMUM [address] IC 4 JESSE MOLINA PROPHYLAC PARTHA PARTHA TIC/DX INJECTION SUBQ/IM INJECTION J24[address] [facility] 4 JESSE MOLINA ONDANSETR PARTHA PARTHA ON HCL PER 1 MG BASIC 04465 COMBINED COMBINED METABOLIC 4 PHYSICIAN PHYSICIAN PANEL S LA S LA CALCIUM TOTAL COLLECTIO 42129 ISMAEL GUEVARA JR N VENOUS 4 YOJANA DWI BLOOD VENIPUNCT URE COLLECTIO 92021 ISMAEL GUEVARA JR N VENOUS 4 YOJANA DWI BLOOD VENIPUNCT URE CREATINE 89180 OMARI SALCIDO KINASE 4 [facility] TOTAL INC INC BLOOD 39983 OMARI SALCIDO COUNT 4 [facility] COMPLETE INC INC AUTO&AUTO DIFRNTL WBC BASIC 05130 OMARI SALCIDO METABOLIC 4 [facility] PANEL INC INC CALCIUM TOTAL URNLS DIP 49034 ISMAEL GUEVARA JR 4 YOJANA DWI STICK/TAB LET RGNT NON-AUTO W/O MICRSCP URNLS DIP 27820 ISMAEL GUEVARA JR 4 YOJANA DWI STICK/TAB LET RGNT NON-AUTO W/O MICRSCP RADEX 55798 OMARI SALCIDO SPINE 4 [facility] LUMBOSACR INC INC AL MINIMUM 4 VIEWS URNLS DIP 06735 ISMAEL GUEVARA JR 4 YOJANA DWI STICK/TAB LET RGNT NON-AUTO W/O MICRSCP THERAPEUT 34136 ISMAEL GUEVARA JR IC 4 YOJANA DWI PROPHYLAC TIC/DX INJECTION SUBQ/IM INJECTION J1040 ISMAEL GUEVARA JR 4 YOJANA DWI METHYLPRE DNISOLONE ACETATE 80 MG CULTURE 61949 OMARI SALCIDO BACTERIAL 4 [facility] INC INC QUANTTATI VE COLONY COUNT URINE COLLECTIO 61649 ISMAEL GUEVARA JR N VENOUS 4 YOJANA DWI BLOOD VENIPUNCT URE BLOOD 94950 COMBINED COMBINED COUNT 4 PHYSICIAN PHYSICIAN COMPLETE S LA S LA AUTO&AUTO DIFRNTL WBC BASIC 94987 COMBINED COMBINED METABOLIC 4 PHYSICIAN PHYSICIAN PANEL S LA S LA CALCIUM TOTAL OBSERVATI 59922 ISMAEL GUEVARA JR ON CARE 4 YOJANA DWI DISCHARGE MANAGEMEN T SBSQ 43166 ISMAEL GUEVARA JR OBSERVATI 4 YOJANA DWI ON CARE/DAY 25 MINUTES ECG 73525 OMARI GUEVARA JR ROUTINE 4 [facility] ECG HOSPITAL W/LEAST P 12 LDS I&R ONLY ECG 37590 [facility] ROUTINE 4 [facility] ECG EMERGENCY W/LEAST PHYS 12 LDS I&R ONLY ECHO 28887 MERRY MARTINEZ TTHRC R-T 4 MEDICAL EMELI 2D SERV W/WOM-MOD FOUNDATIO E COMPL SPEC&COLR D GROUND A0425 MICHEL PEARSON MILEAGE 4 AMBULANCE AMBULANCE PER SERVICE SERVICE STATUTE MILE AMB A0427 MICHEL PEARSON SERVICE 4 AMBULANCE AMBULANCE ALS SERVICE SERVICE EMERGENCY TRANSPORT LEVEL 1 INITIAL 42889 ISMAEL GUEVARA JR OBSERVATI 4 YOJANA DWI ON CARE/DAY 50 MINUTES URNLS DIP 70158 ISMAEL GUEVARA JR 4 YOJANA DWI STICK/TAB LET RGNT NON-AUTO W/O MICRSCP TECHNETIU A9567 OMARI Hernandez TC-99M 4 [facility]P PENTETATE INC INC DX AEROSOL TO 75 MCI ECG 47224 OMARI SALCIDO ROUTINE 4 [facility] ECG INC INC W/LEAST 12 LDS TRCG ONLY W/O I&R TECHNETIU A9540 OMARI Hernandez TC-99M 4 [facility] MAA DX INC INC STDY DOSE UP TO 10 MCI BASIC 91292 OMARI SALCIDO METABOLIC 4 [facility] PANEL INC INC CALCIUM TOTAL PULMONARY 22122 [place] [facility] 4 [facility] VENTILATI IMAGING ON & ASS PERFUSION IMAGING RADEX 93344 [place] [facility] FOOT 4 MEDICAL LATRELL COMPLETE IMAGING MINIMUM 3 ASS VIEWS ECG 20892 OMARI GUEVARA JR ROUTINE 4 [facility] W/LEAST P 12 LDS I&R ONLY CREATINE 12623 OMARI SALCIDO KINASE MB 4 [facility] FRACTION INC INC ONLY COLLECTIO 74093 OMARI Lee VENOUS 4 [facility] BLOOD INC INC VENIPUNCT URE RADIOLOGI 97100 [place] [facility] C EXAM 4 [facility] CHEST 2 IMAGING VIEWS ASS FRONTAL&[place] [address] OMARI SALCIDO TROPONIN 4 [facility] QUANTITAT INC INC RIGO CREATINE 74698 OMARI SALCIDO KINASE 4 [facility] TOTAL INC INC FIBRIN 76666 OMARI SALCIDO DGRADJ 4 [facility] PRODUCTS INC INC D-DIMER QUAL/[place] [address] OMARI SALCIDO LIPASE 4 [facility] INC INC BLOOD 37657 OMARI OMARI COUNT 4 [facility] COMPLETE INC INC AUTO&AUTO DIFRNTL WBC RADIOLOGI 65813 LORAINE SERRANO Fredrick EXAM 4 [facility] CHEST 2 IMAGING VIEWS ASS FRONTAL&L ATERAL URNLS DIP 69126 OMARI SALCIDO 4 [facility] STICK/TAB INC INC LET REAGENT AUTO MICROSCOP Y COMPREHEN 68686 OMARIBG SALCIDO SIVE 4 [facility] METABOLIC INC INC PANEL URNLS DIP 96580 OMARI SALCIDO 4 [facility] STICK/TAB INC INC LET REAGENT AUTO MICROSCOP Y IAADI 63987 OMARI OMARI INFLUENZA 4 [facility] B VIRUS INC INC IAADI 60844 OMARI SALCIDO INFFLUENZ 4 [facility] A A VIRUS INC INC STANDARD K0001 MICHELLE HERNANDEZCHAI 4 HOME [facility] EQUIPME EQUIPME STANDARD K0001 MICHELLE PIMENTELI 4 HOME HOME R MEDICAL MEDICAL EQUIPME EQUIPME CULTURE 22407 OMARI SALCIDO BACTERIAL 4 [facility] INC INC QUANTTATI VE COLONY COUNT URINE STANDARD K0001 MICHELLE PIMENTELI 3 HOME HOME R MEDICAL MEDICAL EQUIPME EQUIPME SEDIMENTA 01385 OMARIBG SALCIDO TION RATE 3 [facility] RBC INC INC NON-AUTOM ATED BLOOD 95614 OMARI SALCIDO COUNT 3 [facility] COMPLETE INC INC AUTO&AUTO DIFRNTL WBC STANDARD K0001 MICHELLE HERNANDEZCHAI 3 HOME HOME R MEDICAL MEDICAL EQUIPME EQUIPME STANDARD K0001 MICHELLE HERNANDEZCHAI 3 HOME HOME R MEDICAL MEDICAL EQUIPME EQUIPME STANDARD K0001 MICHELLE PIMENTELI 3 HOME HOME R MEDICAL MEDICAL EQUIPME EQUIPME THERAPEUT 42950 ISMAEL GUEVARA JR IC 3 YOJANA DWI PROPHYLAC TIC/DX INJECTION SUBQ/IM URNLS DIP 94250 ISMAEL GUEVARA JR 3 YOJANA DWI STICK/TAB LET RGNT NON-AUTO W/O MICRSCP CULTURE 96070 OMARI SALCIDO BACTERIAL 3 [facility] INC INC QUANTTATI VE COLONY COUNT URINE INJECTION J1100 ISMAEL ISMAEL JR 3 YOJANA DWI DEXAMETHO SONE SODIUM PHOSPHATE 1 MG STANDARD K0001 MICHELLE PIMENTELI 3 HOME HOME [facility] MEDICAL MEDICAL EQUIPME EQUIPME OPHTH 86748 [facility] 3 EYE ORTEGA XM&EVAL INSTITUTE COMPRE NEW PT 1/> VST DETERMINA 57975 [place] [facility] TION 3 EYE ORTEGA REFRACTIV INSTITUTE E STATE STANDARD K0001 MICHELLE PIMENTELI 3 HOME HOME R MEDICAL MEDICAL EQUIPME EQUIPME RADEX 57826 [facility] SPINE 3 [place] CERVICAL ORTHOPAED 2 OR 3 [facility] VIEWS RADEX 62627 [facility] SPINE 3 [place] THORACIC ORTHOPAED 2 VIEWS [facility] COLLECTIO 70476 [facility] N VENOUS 3 CLINIC CLINIC BLOOD [place]ORAT[place] [address] [facility] BLOOD/URI 3 CLINIC CLINIC C ACID LABORATO [facility]ATO BLOOD 49565 [facility] 3 [facility] CLINIC COMPLETE LABORATO LABORATO AUTO&AUTO DIFRNTL WBC LACTATE 94679 [facility] DEHYDROGE 3 CLINIC CLINIC NASE LDH LABORATO LABORATO COMPREHEN 89049 [facility] SIVE 3 CLINIC CLINIC METABOLIC LABORATO LABORATO PANEL STANDARD K0001 MICHELLE PIMENTELI 3 HOME HOME R MEDICAL MEDICAL EQUIPME EQUIPME INJECTION J1040 ARAMBULA ARAMBULA 3 DON DON METHYLPRE DNISOLONE ACETATE 80 MG STANDARD K0001 MICHELLE PIMENTELI 3 HOME HOME R MEDICAL MEDICAL EQUIPME EQUIPME OPHTH 20541 [facility] 3 MEDICAL JR ORTEGA XM&EVAL SERV COMPRHNSV FOUNDATIO ESTAB PT 1/> STANDARD K0001 MICHELLE PIMENTELI 3 HOME [facility] E[facility]IP[facility] EQUIPID HOSP[facility] 22963 EMILY ANDREA DISCHARGE 3 EMERGENCY RAE IGN DAY SERVICES MANAGEMEN T 30 MIN/< SBSQ 79862 [facility] 3 EMERGENCY RAE IGN CARE/DAY SERVICES 25 MINUTES ANESTHESI 55423 LORAINE HUNTER A PERQ 3 ANESTHESI [place] IMAGE A GROUP GUIDED PS SPINE THERAPEUT IC RADIOLOGI 84483 [facility] [place] [facility] MAT C 3 RADIOLOGY EXAMINATI ON CHEST SINGLE VIEW FRONTAL INITIAL 80865 [facility] 3 N CARE/DAY CARDIOLOG 30 Y MINUTES MRI 22216 [facility] [place] [facility] MAT SPINAL 3 RADIOLOGY CANAL THORACIC W/O CONTRAST MATRL MRI 17126 [facility] [place] [facility] MAT SPINAL 3 RADIOLOGY CANAL LUMBAR W/O CONTRAST MATERIAL MRI 37466 [facility] SPINAL 3 MEDICAL LATRELL CANAL IMAGING LUMBAR ASS W/O CONTRAST MATERIAL 3D 47996 LORAINE [facility] RENDERING 3 MEDICAL LATRELL IMAGING W/INTERP& ASS POSTPROC DIFF WORK STATION INITIAL 29596 [facility] 3 EMERGENCY JANET CARE/DAY SERVICES [address] LUMBAR 40334 OMARI SALCIDO SPINE 3 [facility] W/O INC INC CONTRAST MATERIAL RADIOLOGI 70525 OMARI SALCIDO C 3 [facility] EXAMINATI INC INC ON PELVIS 1/[address] [place] [address] OMARI SALCIDO HEAD/BRAI 3 [facility] N W/O INC INC CONTRAST MATERIAL THERAPEUT 98899 OMARI SALCIDO IC 3 [facility] PROPHYLAC INC INC TIC/DX INJECTION SUBQ/IM AMBULANCE A0429 [facility] SERVICE 3 AMBULANCE AMBULANCE BLS SERVICE SERVICE EMERGENCY TRANSPORT 3D 64036 OMARI SALCIDO RENDERING 3 [facility] W/INTERP INC INC & POSTPROCE SS SUPERVISI ON 3D 43806 OMARI SALCIDO RENDERING 3 [facility] INC INC W/INTERP& POSTPROC DIFF WORK STATION GROUND A0425 [facility]UL[facility] PER SERVICE SERVICE STATUTE MILE RADIOLOGI 02086 OMARI SALCIDO C 3 [facility] EXAMINATI INC [place] [address] OMARI SALCIDO CERVICAL 3 [facility] SPINE W/O INC INC CONTRAST MATERIAL RADEX 61803 OMARI JESSICA ORTEGA SPINE 3 [facility] HOS[facility] LUMBOSACR INC AL MINIMUM 4 VIEWS INJECTION J1040 TYESHA ARAMBULA 3 DON DON METHYLPRE DNISOLONE ACETATE 80 MG STANDARD K0001 MICHELLE MAXWELL 3 HOME HOME R MEDICAL MEDICAL EQUIPME EQUIPME URNLS DIP 41889 OMARI SALCIDO 3 [facility] STICK/TAB INC INC LET REAGENT AUTO MICROSCOP Y COMPREHEN 36856 OMARI SALCIDO SIVE 3 [facility] METABOLIC INC INC PANEL BLOOD 18571 OMARI SALCIDO COUNT 3 [facility] COMPLETE INC INC AUTO&AUTO DIFRNTL WBC COLLECTIO 33253 OMARI SALCIDO N VENOUS 3 [facility] BLOOD INC INC VENIPUNCT URE RADIOLOGI 31713 TYESHA Alcala 3 DON DON EXAMINATI ON KNEE 1/2 VIEWS STANDARD K0001 MICHELLE MAXWELL 3 HOME HOME R MEDICAL MEDICAL EQUIPME EQUIPME URS DIP 34083 TYESHA ARZATES 3 DON DON STICK/TAB LET RGNT NON-AUTO W/O MICRSCP CULTURE 41836 OMARIBG CALLEON BCT 3 [facility] ISOL&PRSM INC INC PTV ID ISOLATE EA URINE SUSCEPTIB 96558 OMARI SALCIDO LTY STDY 3 [facility] ANTIMICRB INC INC IAL MICRO/AGA R DILUTJ CULTURE 16756 OMARI CALLEON BACTERIAL 3 [facility] INC INC QUANTTATI VE COLONY COUNT URINE OPHTH 26892 [facility] 3 MEDICAL [facility] XM&EVAL SERV COMPRHNSV FOUNDATIO ESTAB PT 1/> CUL BACT 62053 OMARI SALCIDO XCPT 3 [facility] URINE INC INC BLOOD/[place] [address] OMARI SALCIDO INFUSION 3 [facility] THERAPY/P INC INC ROPHYLAXI S /DX 1ST TO 1 [place] [address] OMARI SALCIDO INFUSION 3 [facility] THERAPY/P INC INC ROPHYLAXI S /DX 1ST TO 1 [place] [address] OMARI SALCIDO INFUSION 3 [facility] THERAPY/P INC INC ROPHYLAXI S /DX 1ST TO 1 HR DRUG 35272 OMARI SALCIDO SCREEN 3 [facility] QUANTITAT INC INC RIGO GENTAMICI N DRUG 35135 OMARI SALCIDO SCREEN 3 [facility] QUANTITAT INC INC RIGO GENTAMICI N COLLECTIO 39309 OMARI SALCIDO N VENOUS 3 [facility] [place] [address] OMARI SALCIDO INFUSION 3 [facility] THERAPY/P INC INC ROPHYLAXI S /DX 1ST TO 1 HR COLLECTIO 08389 OMARI SALCIDO N VENOUS 3 [facility] BLOOD INC INC VENIPUNCT URE DRUG 16745 OMARI SALCIDO SCREEN 3 [facility] QUANTITAT INC INC RIGO GENTAMICI N DRUG 14284 OMARI SALCIDO SCREEN 3 [facility] QUANTITAT INC INC RIGO GENTAMICI N COLLECTIO 86382 OMARI SALCIDO N VENOUS 3 [facility] [place]LO[place] [address] OMARI SALCDIO UREA 3 [facility] [place] [address] OMARI SALCIDO INFUSION 3 [facility] THERAPY/P INC INC ROPHYLAXI S /DX 1ST TO 1 HR CREATININ 20158 OMARI SALCIDO E BLOOD 3 [facility] INC INC BASIC 38949 OMARI SALCIDO METABOLIC 3 [facility] PANEL INC INC CALCIUM TOTAL SUSCEPTIB 03311 OMARI SALCIDO LTY STDY 3 [facility] ANTIMICRB INC INC IAL MICRO/AGA R DILUTJ CUL BACT 55726 OMARI SALCIDO AEROBIC 3 [facility] ADDL INC INC METHS DEFINITIV E EA ISOL CUL BACT 22705 OMARI SALCIDO XCPT 3 [facility] URINE INC INC BLOOD/STO OL AEROBIC ISOL INJECTION J0690 TYESHA ARAMBULA 3 DON DON CEFAZOLIN SODIUM 500 MG ADMINISTR G0008 TYESHA ARAMBULA ATION OF 2 DON DON INFLUENZA VIRUS VACCINE INFLUENZA Q2037 TYESHA ARAMBULA VACC 2 DON DON SPLIT VIRUS 3 YRS & > IM FLUVIRIN INJECTION J1040 TYESHA ARAMBULA 2 DON DON METHYLPRE DNISOLONE ACETATE 80 MG REMOVAL 43281 TYESHA ARAMBULA IMPACTED 2 DON DON CERUMEN INSTRUMEN TATION UNILAT INJECTION J3420 TYESHA ARAMBULA VIT B-12 2 DON DON CYANOCOBA JEWEL TO 1000 MCG INJ J0702 TYESHA ARAMBULA BETAMETHA 2 DON DON SONE ACETATE & PHOSPHATE 3 MG ECG 87612 TYESHA ARAMBULA ROUTINE 2 DON DON ECG W/LEAST 12 LDS W/I&R ECG 45210 TYESHA ARAMBULA ROUTINE 2 DON DON ECG W/LEAST 12 LDS W/I&R RADEX ABD 96798 TYESHA ARAMBULA COMPL 2 DON DON AQT ABD W/S/E/D VIEWS 1 VIEW URNLS DIP 35452 TYESHA ARAMBULA 2 DON DON STICK/TAB LET RGNT NON-AUTO W/O MICRSCP INJECTION J1040 TYESHA ARAMBULA 2 DON DON METHYLPRE DNISOLONE ACETATE 80 MG BLOOD 00775 OMARI SALCIDO COUNT 2 [facility] COMPLETE INC INC AUTO&AUTO DIFRNTL WBC CREATINE 44949 OMARI SALCIDO KINASE 2 [facility] TOTAL INC INC NATRIURET 86081 OMARI SALCIDO IC 2 [facility] [place] [address] OMARI SALCIDO TROPONIN 2 [facility] QUANTITAT INC INC RIGO ECG 77167 EMILY STARK ROUTINE 2 EMERGENCY SAJAN ECG SERVICES W/LEAST 12 LDS I&R ONLY INJECTION J2405 OMARI SALCIDO 2 [facility] ONDANSETR INC INC ON HCL PER 1 MG RADIOLOGI 15906 OMARI SALCIDO C 2 [facility] EXAMINATI INC INC ON CHEST SINGLE VIEW FRONTAL CREATINE 43683 OMARI OMARI KINASE MB 2 [facility] FRACTION INC INC ONLY ECG 45971 OMARI OMARI ROUTINE 2 [facility] ECG INC INC W/LEAST 12 LDS TRCG ONLY W/O I&R THER 64745 OMARI OMARI PROPH/DX 2 [facility] NJX IV INC INC PUSH SINGLE/1S T SBST/DRUG COMPREHEN 63325 OMARI OMARI SIVE 2 [facility] METABOLIC INC INC PANEL URNLS DIP 43372 OMARI CALLEON 2 [facility] STICK/TAB INC INC LET REAGENT AUTO MICROSCOP Y COMPREHEN 38485 OMARI OMARI SIVE 2 [facility] INC PANEL COLLECTIO 48232 OMARI SALCIDO N VENOUS 2 [facility] BLOOD INC INC VENIPUNCT URE INJECTION J3420 TYESHA ARZATES VIT B-12 2 DON DON CYANOCOBA JEWEL TO 1000 MCG INJECTION J1040 TYESHA ARAMBULA 2 DON DON METHYLPRE DNISOLONE ACETATE 80 MG TYMPANOME 75790 TYESHA ARZATES TRY 2 DON DON COMPREHEN 33938 OMARI OMARI SIVE 2 [facility] INC PANEL LIPID 19378 OMARI SALCIDO PANEL 2 [facility] INC INC BLOOD 36463 OMARI SALCIDO COUNT 2 [facility] COMPLETE INC INC AUTO&AUTO DIFRNTL WBC COLLECTIO 99940 OMARI SALCIDO N VENOUS 2 [facility] [place] [address] OMARI SALCIDO THYROID 2 [facility] STIMULATI INC INC NG HORMONE TSH OPHTH 12041 MERRY LIANG MEDICAL 2 MEDICAL ORTEGA XM&EVAL SERV COMPRHNSV FOUNDATIO ESTAB PT 1/> COMPUTERI 41589 MERRY LIANG ZED 2 MEDICAL ORTEGA OPHTHALMI SERV C IMAGING FOUNDATIO RETINA US PELVIC 62900 LORAINE SERRANO 2 MEDICAL LATRELL NONOBSTET IMAGING [place] [address] OMARI SALCIDO TRANSVAGI 2 [facility] NAL INC INC URNLS DIP 43247 TYESHA ARAMBULA 2 DON DON STICK/TAB LET RGNT NON-AUTO W/O MICRSCP INJECTION J3420 ARAMBULA ARAMBULA VIT B-12 2 DON DON CYANOCOBA JEWEL TO 1000 MCG INJECTION J1040 TYESHA ARAMBULA 2 DON DON METHYLPRE DNISOLONE ACETATE 80 MG URNLS DIP 42143 TYESHA ARAMBULA 2 DON DON STICK/TAB LET RGNT NON-AUTO W/O MICRSCP INJECTION J3420 TYESHA ARZATES VIT B-12 1 DON DON CYANOCOBA JEWEL TO 1000 MCG ADMINISTR G0008 ARAMBULA ARAMBULA ATION OF 1 DON DON INFLUENZA VIRUS VACCINE INFLUENZA Q2037 ARAMBULA ARAMBULA VACC 1 DON DON SPLIT VIRUS 3 YRS & > IM FLUVIRIN URNLS DIP 74370 TYESHA JAMESONHENS 1 DON DON STICK/TAB LET RGNT NON-AUTO W/O MICRSCP INJECTION J1040 TYESHA ARZATES 1 DON DON METHYLPRE DNISOLONE ACETATE 80 MG INJECTION J3420 TYESHA ARZATES VIT B-12 1 DON DON CYANOCOBA JEWEL TO 1000 MCG URNLS DIP 53715 TYESHA ARAMBULA 1 DON DON STICK/TAB LET RGNT NON-AUTO W/O MICRSCP URNLS DIP 21197 TYESHA ARZATES 1 DON DON STICK/TAB LET RGNT NON-AUTO W/O MICRSCP CULTURE 22548 OMARI SALCIDO BACTERIAL 1 [facility] INC INC QUANTTATI VE COLONY COUNT URINE URNLS DIP 50013 ARAMBULA ARAMBULA 1 DON DON STICK/TAB LET RGNT NON-AUTO W/O MICRSCP URNLS DIP 54750 [place] 1 [place] AND STICK/TAB [facility] LET RGNT PSC NON-AUTO W/O MICRSCP URNLS DIP 22570 TYESHA ARZATES 1 DON DON STICK/TAB LET RGNT NON-AUTO W/O MICRSCP INJECTION J3420 TYESHA ARAMBULA VIT B-12 1 DON DON CYANOCOBA JEWEL TO 1000 MCG INJ J0702 TYESHA ARZATES BETAMETHA 1 DON DON SONE ACETATE & PHOSPHATE [address] THORAX 36441 [place] [facility] W/O 1 [facility] [place] [address] OMARI SALCIDO ABDOMEN & 1 [facility] PELVIS INC INC W/CONTRAS T MATERIAL 3D 35701 OMARI SALCIDO RENDERING 1 [facility] INC INC W/INTERP& POSTPROC DIFF WORK STATION CT THORAX 57037 OMARI SALCIDO 1 [facility] W/CONTRAS INC INC T MATERIAL COMPREHEN 46620 [facility] SIVE 1 [facility] METABOLIC LABORATO LABORATO PANEL COLLECTIO 85272 [facility] N VENOUS 1 [facility] BLOOD [place] [address] [facility] BLOOD/URI 1 [facility] C ACID LABORATO LABORATO BLOOD 38878 [facility] COUNT 1 [facility] COMPLETE LABORATO LABORATO AUTO&AUTO DIFRNTL WBC LACTATE 08744 [facility] DEHYDROGE 1 [facility] NASE LDH LABORATO LABORATO INJECTION J3420 TYESHA ARZATES VIT B-12 1 DON DON CYANOCOBA JEWEL TO 1000 MCG INJECTION J1040 ARAMBULA ARAMBULA 1 DON DON METHYLPRE DNISOLONE ACETATE 80 MG INJECTION J0690 ARAMBULA ARAMBULA 1 DON DON CEFAZOLIN SODIUM 500 MG URNLS DIP 67054 OMARI JEAN-BAPTISTE JR 1 [facility] LET RGNT P NON-AUTO W/O MICRSCP INJECTION J1040 ARAMBULAKRISS ARZATES 1 DON DON METHYLPRE DNISOLONE ACETATE 80 MG BLOOD 12619 OMARI SALCIDO COUNT 1 [facility] COMPLETE INC INC AUTO&AUTO DIFRNTL WBC COLLECTIO 13764 OMARI OMARI N VENOUS 1 [facility] [place] [address] OMARI SALCIDO THYROID 1 [facility] STIMULATI INC INC NG HORMONE TSH COMPREHEN 14121 OMARI SALCIDO SIVE 1 [facility] METABOLIC INC INC PANEL LIPID 60551 OMARI SALCIDO PANEL 1 [facility] INC INC INJECTION J1040 ARAMBULAKRISS ARZATES 1 DON DON METHYLPRE DNISOLONE ACETATE 80 MG INJECTION J1040 ARAMBULAKRISS ARZATES 0 DON DON METHYLPRE DNISOLONE ACETATE 80 MG SIMPLE 14076 EMILY STARK RPR 0 EMERGENCY SAJAN SCALP/NEC SERVICES K/AX/KIRSTIE T/TRUNK 7.6-12.5C M GROUND A0425 [facility] MILEAGE 0 AMBULANCE AMBULANCE PER SERVICE SERVICE STATUTE MILE AMBULANCE A0429 [facility] SERVICE 0 AMBULANCE AMBULANCE BLS SERVICE [place] [address] OMARI SALCIDO CLOSTRIDI 0 [facility] UM INC INC DIFFICILE TOXIN URNLS DIP 04220 TYESHA ARZATES 0 DON DON STICK/TAB LET RGNT NON-AUTO W/O MICRSCP OPHTH 81705 [facility] 0 MEDICAL ORTEGA XM&EVAL SERV COMPRHNSV FOUNDATIO ESTAB PT 1/> INJECTION J1040 TYESHA JAMESONHENS 0 DON DON METHYLPRE DNISOLONE ACETATE 80 MG ADMINISTR G0008 TYESHA ARAMBULA ATION OF 0 DON DON INFLUENZA VIRUS VACCINE IIV3 83431 TYESHA ARAMBULA VACCINE 0 DON DON SPLIT VIRUS 0.5 ML DOSAGE IM USE INJECTION J1040 TYESHA JAMESONHENS 0 DON DON METHYLPRE DNISOLONE ACETATE 80 MG INJECTION J3420 TYESHA ARAMBULA VIT B-12 0 DON DON CYANOCOBA JEWEL TO 1000 MCG URNLS DIP 65832 ARAMBULA ARAMBULA 0 DON DON STICK/TAB LET RGNT NON-AUTO W/O MICRSCP URNLS DIP 52041 ARAMBULA ARAMBULA 0 DON DON STICK/TAB LET RGNT NON-AUTO W/O MICRSCP URNLS DIP 66388 TYESHA ARAMBULA, 0 DON R DON R STICK/TAB LET RGNT NON-AUTO W/O MICRSCP INJECTION J1040 TYESHA ARAMBULA, 0 DON R DON R METHYLPRE DNISOLONE ACETATE 80 MG THERAPEUT 85784 OMARI CALLEON IC 0 [facility] PROPHYLAC INC INC TIC/DX INJECTION SUBQ/IM URNLS DIP 60691 TYESHA ARAMBULA, 0 DON R DON R STICK/TAB LET RGNT NON-AUTO W/O MICRSCP INJECTION J1040 TYESHA ARAMBULA, 0 DON R DON R METHYLPRE DNISOLONE [place]ET[place] [address] [place] [address] [facility] BLOOD/URI 0 CLINIC CLINIC C ACID LABORATOR LABORATOR Y Y BLOOD 00317 [facility] COUNT 0 CLINIC CLINIC COMPLETE LABORATOR LABORATOR AUTO&AUTO Y Y DIFRNTL WBC LACTATE 67435 [facility] DEHYDROGE 0 CLINIC CLINIC NASE LDH LABORATOR LABORATOR Y Y COLLECTIO 60030 [facility] N VENOUS 0 CLINIC CLINIC BLOOD LABORATOR LABORATOR VENIPUNCT Y Y URE COMPREHEN 49390 [facility] SIVE 0 CLINIC CLINIC METABOLIC LABORATOR LABORATOR PANEL Y Y INJECTION J3420 TYESHA ARAMBULA, VIT B-12 0 DON R DON R CYANOCOBA JEWEL TO 1000 MCG RADIOLOGI 55690 Fredrick LYNNE EXAM 0 MEDICAL DEAN CHEST 2 IMAGING VIEWS ASSOCIATE FRONTAL&L S ATERAL THERAPEUT 34962 O[facility]I CALLEON IC 0 [facility] PROPHYLAC INC INC TIC/DX INJECTION SUBQ/IM INJECTION J1040 TYESHA ARAMBULA, 0 DON R DON R METHYLPRE DNIS[place] [address] [place] [address] OMARI SALCIDO HEAD/BRAI 0 [facility] N W/O & INC INC W/CONTRAS T MATERIAL CREATININ 62973 OMARI SALCIDO E BLOOD 0 [facility] INC INC COLLECTIO 52900 OMARI SALCIDO N VENOUS 0 [facility] [place] [address] OMARI SALCIDO UREA 0 [facility] NITROGEN INC INC QUANTITAT RIGO 3D 83336 OMARI SALCIDO RENDERING 0 [facility] W/INTERP INC INC & POSTPROCE SS SUPERVISI ON RADEX HIP 03376 [facility], 0 MEDICAL DEAN UNILATERA IMAGING L ASSOCIATE COMPLETE S MINIMUM 2 VIEWS RADIOLOGI 13443 [facility] C 0 MEDICAL DEAN EXAMINATI IMAGING ON PELVIS ASSOCIATE 1/2 S VIEWS BLOOD 70897 TYESHA ARAMBULA, OCCULT 0 DON R DON R PEROXIDAS E ACTV QUAL FECES 1 DETER URNLS DIP 86291 TYESHA ARAMBULA, 0 DON R DON R STICK/TAB LET RGNT NON-AUTO W/O MICRSCP INJ J0702 TYESHA ARAMBULA, BETAMETHA 0 DON R DON R SONE ACETATE & PHOSPHATE 3 [place] [address] OMARI SALCIDO UREA 9 [facility] NITROGEN INC INC QUANTITAT RIGO COLLECTIO 85500 OMARI SALCIDO N VENOUS 9 [facility] BLOOD INC INC VENIPUNCT URE CREATININ 82590 OMARI SALCIDO E BLOOD 9 [facility] INC INC 3D 03439 OMARI SALCIDO RENDERING 9 [facility] INC INC W/INTERP& POSTPROC DIFF WORK STATION CT THORAX 40091 OMARI SALCIDO 9 [facility] W/CONTRAS INC INC T MATERIAL SBSQ 45470 TYESHA ARAMBULA, NURSING 9 DON R DON R FACILITY CARE/DAY E/M STABLE 10 MIN HOSPITAL 23188 [facility] 9 DON R DON R DAY MANAGEMEN T 30 MIN/< SBSQ 73229 [place] [address] DON R DON R CARE/DAY 25 MINUTES SBSQ 91545 [place] [address] DON R DON R CARE/DAY 25 MINUTES SBSQ 18582 [place] [address] DON R DON R CARE/DAY 25 MINUTES RADIOLOGI 82918 [place] [facility] MEDICAL DEAN EXAMINATI IMAGING ON CHEST ASSOCIATE SINGLE S VIEW FRONTAL SBSQ 41531 [place] [address] DON R DON R CARE/DAY 25 MINUTES SBSQ 72011 [facility] 9 DON R DON R CARE/DAY 25 MINUTES ECG 02194 OMARI GUEVARA ROUTINE 9 [facility] W/LEAST PROF SERV 12 L[place] [address] PATHOLOGY PATHOLOGY SURG 9 & & PATHOLOGY CYTOLOGY CYTOLOGY LAB LAB GROSS&SAJAN ROSCOPIC EXAM DECALCIFI 77749 PATHOLOGY PATHOLOGY CATION 9 & & PROCEDURE CYTOLOGY CYTOLOGY LAB LAB ANESTHESI 45505 [facility] GAMINO, Jacobo OPEN 9 ANESTH JORGE F [facility] SBSQ 13173 [facility] 9 DON R DON R CARE/DAY 25 MINUTES PARTIAL 8152 OMARI SALCIDO HIP 9 [facility] REPLACEME INC INC NT HIP 0074 OMARI OMARI BEARING 9 [facility] SURFACE INC INC METAL-ON- POLYETHYL AYUSH RADEX HIP 95154 [facility] MED[facility] DEAN UNILATERA IMAGING L 1 VIEW ASSOCIATE S GROUND A0425 [facility] AMBULANCE PER SERVICE SERVICE STATUTE MILE INITIAL 11384 [place] [address] DON R DON R CARE/DAY [address] [facility] SERVICE 9 AMBULANCE AMBULANCE ALS SERVICE SERVICE EMERGENCY TRANSPORT LEVEL 1 RADEX HIP 58382 [facility], 9 MEDICAL DEAN UNILATERA IMAGING L ASSOCIATE COMPLETE S MINIMUM 2 VIEWS RADIOLOGI 22198 [facility] Fredrick SERRANO 9 MEDICAL DEAN EXAMINATI IMAGING ON PELVIS ASSOCIATE 1/2 S VIEWS ECG 34280 EMILY MANZANOEY, ROUTINE 9 EMERGENCY MADDY S ECG SERVICES W/LEAST 12 LDS ASSOCIATE I&R ONLY S RADIOLOGI 82418 [facility] Fredrick SERRANO 9 MEDICAL DEAN EXAMINATI IMAGING ON CHEST ASSOCIATE SINGLE S VIEW FRONTAL OPHTH 66199 MERRY LIANG [facility] 9 MEDICAL MARTINE D &EVAL SERV INTERMEDI FOUNDATIO ATE ESTAB PT PPSV23 76891 TYESHA ARAMBULA, ERNESTO 2 9 DON R DON R YRS OR OLDER FOR SUBQ/IM USE IIV3 67804 TYESHA ARAMBULA, VACCINE 9 DON R DON R SPLIT VIRUS 0.5 ML DOSAGE IM USE ADMINISTR G0009 TYESHA ARAMBULA, ATION OF 9 DON R DON R PNEUMOCOC CECILIA VACCINE ADMINISTR G0008 TYESHA ARAMBULA, ATION OF 9 DON R DON R INFLUENZA VIRUS VACCINE URNLS DIP 96126 TYESHA ARAMBULA, Candie DON R DON R STICK/TAB LET RGNT NON-AUTO W/O MICRSCP URNLS DIP 41025 TYESHA ARAMBULA 9 DON R DON R STICK/TAB LET RGNT NON-AUTO W/O MICRSCP INJECTION J3420 TYESHA ARAMBULA, VIT B-12 9 DON R DON R CYANOCOBA JEWEL TO 1000 MCG RADEX 39195 LORAINE ZACH WRIST 9 MEDICAL DEAN COMPLETE IMAGING MINIMUM 3 ASSOCIATE VIEWS S RADEX 74300 [facility], ANKLE 9 MEDICAL DEAN COMPLETE IMAGING MINIMUM [address] PELVIS 18845 OMARI SALCIDO 9 [facility] W/CONTRAS INC INC T MATERIAL CT THORAX 97501 OMARI SALCIDO 9 [facility] W/CONTRAS INC INC T MATERIAL 3D 96127 OMARI SALCIDO RENDERING 9 [facility] INC INC W/INTERP& [place] [address] OMARI SALCIDO ABDOMEN 9 [facility] W/CONTRAS INC INC T MATERIAL COMPREHEN 19028 [facility] SIVE 9 CLINIC CLINIC METABOLIC LABORATOR LABORATOR PANEL Y Y COLLECTIO 73508 [facility] N VENOUS 9 CLINIC CLINIC BLOOD LABORATOR LABORATOR VENIPUNCT Y Y URE BLOOD 19392 [facility] COUNT 9 [facility] CLINIC COMPLETE LABORATOR LABORATOR AUTO&AUTO Y Y DIFRNTL WBC INJECTION J1040 TYESHA ARAMBULA, 9 DON R DON R METHYLPRE DNISOLONE ACETATE 80 MG INJECTION J3420 TYESHA ARAMBULA, VIT B-12 9 DON R DON R CYANOCOBA JEWEL TO 1000 MCG COLLECTIO 15622 [facility] N VENOUS 9 CLINIC CLINIC BLOOD LABORATOR LABOR[place] [address] [facility] BLOOD/URI 9 CLINIC CLINIC C ACID LABORATOR LABORATOR Y Y BLOOD 07604 [facility] COUNT 9 [facility] CLINIC COMPLETE LABORATOR LABORATOR AUTO&[place] [address] [facility] GAMMAGLOB 9 CLINIC CLINIC ULIN IGA LABORATOR LABORATOR IGD IGG Y Y IGM EACH LACTATE 29814 [facility] DEHYDROGE 9 CLINIC CLINIC NASE LDH LABORATOR LABORATOR Y Y COMPREHEN 98490 [facility] SIVE 9 CLINIC CLINIC METABOLIC LABORATOR LABORATOR PANEL Y Y MYOCRD 02576 OMARI SALCIDO PRFUJ IMG 9 [facility] TOMOG INC INC SPECT FRENCH TRANSLATOR STD CV STRS 12069 OMARI ROGER, TST 9 [facility] XERS&/OR HOSPITAL RX CONT PROF SERV ECG I&R ONLY MYOCRD 12064 OMARI SALCIDO PRFUJ STD 9 [facility] WALL INC INC MOTION QUAL/NAYE STD MYOCRD 37026 OMARI SALCIDO PRFUJ STD 9 [facility] EJEC FXJ INC INC CV STRS 13393 OMARI ROGER, TST 9 [facility]OSPITAL RX CONT PROF SERV ECG W/O I&R CV STRS 52450 OMARI SALCIDO TST 9 [facility] XERS&/OR INC INC RX CONT ECG TRCG ONLY TECHNETIU A9502 OMARI Hernandez TC-99M 9 [facility] TETROFOSM INC INC IN DX PER STUDY DOSE INJECTION J0152 OMARI SALCIDO 9 [facility] ADENOSINE INC INC DIAGNOSTI C USE 30 MG RADIOLOGI 62457 TYESHA ARAMBULA C 9 DON R DON R EXAMINATI ON CHEST SINGLE VIEW FRONTAL ECG 25066 TYESHA ARAMBULA ROUTINE 9 DON R DON R ECG W/LEAST 12 LDS W/I&R RADEX HIP 90617 TYESHA ARAMBULA 9 DON R DON R UNILATERA L COMPLETE MINIMUM 2 VIEWS RADIOLOGI 01907 TYESHA ARAMBULA C EXAM 9 DON R DON R PELVIS COMPL MINIMUM 3 VIEWS INJECTION J1040 TYESHA ARAMBULA 9 DON R DON R METHYLPRE DNISOLONE ACETATE 80 MG INJECTION J1040 TYESHA ARAMBULA 8 DON R DON R METHYLPRE DNISOLONE ACETATE [address] [place] [address] [facility] BLOOD/URI 8 CLINIC CLINIC C ACID LABORATOR LABORATOR Y Y BLOOD 83882 [facility] COUNT 8 CLINIC CLINIC COMPLETE LABORATOR LABORATOR AUTO&AUTO Y Y DIFRNTL WBC LACTATE 09746 [facility] DEHYDROGE 8 CLINIC CLINIC NASE LDH LABORATOR LABORATOR Y Y COLLECTIO 56559 [facility] N VENOUS 8 CLINIC CLINIC BLOOD LABORATOR LABORATOR VENIPUNCT Y Y URE COMPREHEN 44230 [facility] SIVE 8 CLINIC CLINIC METABOLIC LABORATOR LABORATOR PANEL Y Y INJECTION J1040 TYESHA ARAMBULA 8 DON R DON R METHYLPRE DNISOLONE ACETATE 80 MG [facility] [address] MERRY LIANG, [address] D XM&EVAL SERV COMPRHNSV FOUNDATIO ESTAB PT 1/> URNLS DIP 09022 TYESHA ARAMBULA, Roberta DON R DON R STICK/TAB LET RGNT NON-AUTO W/O MICRSCP IIV3 51483 TYESHA ARAMBULA, VACCINE 8 DON R DON R SPLIT VIRUS 0.5 ML DOSAGE IM USE ADMINISTR G0008 TYESHA ARAMBULA, ATION OF 8 DON R DON R INFLUENZA VIRUS VACCINE POTASSIUM [address] PLASMA/[place] [address] [facility] LIPASE [address] [place] [address] BLOOD 56617 [facility] COUNT [address] [place] [address] COMPLETE AUTOMATED NATRIURET 63540 [facility] IC [address] [place] [address] PEPTIDE BLOOD 79936 [facility] GASES ANY [address] [place] [address] COMBINATI ON PH PCO2 PO2 CO2 HCO3 GLUCOSE 00186 [facility] [address] [place] [address] RIGO BLOOD XCPT REAGENT STRIP SODIUM [address] [place] [address] [facility] TROPONIN [address] [place] [address] QUANTITAT RIGO CHLORIDE 53634 [facility] BLD [address] [place] [address] RADIOLOGI 68824 [facility] C EXAM [address] [place] [address] CHEST 2 VIEWS FRONTAL&L ATERAL THER 47096 [facility] PROPH/DX [address] [place] [address] NJX IV PUSH 1ST SBST/DRUG IV NFUS 53645 [facility] HYDRATION [address] [place] [address] [place] [address] [facility] UREA [address] [place] [address] NITROGEN QUANTITAT RIGO ECG 16447 JAIME MUNOZMAN ROUTINE 8 [facility] ECG CLINIC J W/LEAST PSC 12 LDS I&R ONLY INJECTION J2405 [address] ONDANSETR ON HCL PER 1 MG ECG 87456 [facility] ROUTINE [address] [place] [address] ECG W/LEAST 12 LDS TRCG ONLY W/O I&R HEPATIC [address] PANEL URNLS DIP [address] STICK/TAB LET REAGENT AUTO MICROSCOP Y RADEX 27261 OMARI SALCIDO SPINE 8 [facility] HOSP LUMBOSACR [facility] INC AL MINIMUM 4 VIEWS RADIOLOGI 53341 TYESHA ARAMBULA C EXAM 8 DON R DON R CHEST 2 VIEWS FRONTAL&L ATERAL INJECTION J1040 TYESHA ARAMBULA 8 DON R DON R METHYLPRE DNISOLONE ACETATE 80 MG INJ J0702 TYESHA ARAMBULA BETAMETHA 8 DON R DON R SONE ACETATE & PHOSPHATE 3 MG INJ J0702 TYESHA ARAMBULA BETAMETHA 8 DON R DON R SONE ACETATE & PHOSPHATE 3 MG INJ J0702 TYESHA ARAMBULA BETAMETHA 8 DON R DON R SONE ACETATE & PHOSPHATE 3 MG INJ J0702 TYESHA ARAMBULA BETAMETHA 8 DON R DON R SONE ACETATE & PHOSPHATE 3 MG Encounters Encounter Start End Date Code Location Performer Type Date [facility]ICAL [facility] JE[facility]NY 7 7 [facility] OMARI - OUMOU 7 7 [facility] OMARI - OTHER 7 7 [facility] OMARI - 7 7 [facility] OUTPATIEN [facility] T OFFICE 76166 [facility] RIKI OUTPATIEN 7 7 PHYSICIAN T VISIT S GROUP 25 MINUTES [facility] OMARI - 7 7 [facility] OUTPATIEN [facility] T OFFICE 09540 [facility] RIKI OUTPATIEN 7 7 PHYSICIAN T VISIT S GROUP 25 MINUTES [facility] OMARI - 7 7 [facility] - 7 7 [facility] T OFFICE 86305 [facility] RIKI OUTPATIEN 7 7 PHYSICIAN T VISIT S GROUP 40 MINUTES [facility]OSPITAL OMARI - 7 7 [facility] OUTPATIEN INC T OFFICE 46161 MERRY HENRY OUTPATIEN 7 7 MEDICAL T VISIT SERV 25 FOUNDATIO MINUTES [facility] OMARI - 7 7 [facility] OUTPATIEN INC [facility] O[facility] - 7 7 [facility] OUTPATIEN INC T OFFICE 05637 [facility] RIKI OUTPATIEN 7 7 PHYSICIAN T VISIT S GROUP 40 MINUTES [facility] OMARI - 7 7 [facility] OUTPATIEN INC [facility] OMARI - 7 7 [facility] OUTPATIEN INC T OFFICE 67035 MERRY HENRY OUTPATIEN 7 7 MEDICAL T NEW 60 SERV MINUTES [facility] OFFICE 80490 [facility] RIKI OUTPATIEN 7 7 PHYSICIAN T VISIT S GROUP 15 MINUTES [facility] OMARI - 7 7 [facility] OUTPATIEN INC [facility] OMARI - 7 7 [facility] OUTPATIEN INC [facility] - 7 7 [facility] OUTPATIEN INC T OFFICE 01662 [facility] RIKI OUTPATIEN 7 7 PHYSICIAN T NEW 60 S GROUP MINUTES [facility]OSP[facility] OMAR[facility] - 7 7 [facility] OUTPATIEN INC [facility]OSPITAL OMARI - OTHER 7 7 [facility] INC EMERGENCY 91815 [facility] MAK 7 7 PHYSICIAN DEPARTMEN S, [facility] T VISIT HIGH/URGE NT SEVERITY EMERGENCY 64821 O[facility]I 7 7 [facility] DEPARTMEN INC T VISIT LOW/MODER SEVERITY [facility]OSPITAL O[facility] - 7 7 [facility] OUTPATIEN INC T OFFICE 84371 ISMAEL GUEVARA JR OUTPATIEN 7 7 T VISIT 15 MINUTES OFFICE 67193 [facility] OUTPATI[facility] 6 6 [place] [facility] NEW 20 CLINIC MINUTES [facility] INPAT[facility] 6 6 [facility] 6 6 [facility] OMARI - 6 6 [facility] OUTPATIEN INC T [facility] INPATIENT [address] [facility] EMERGENCY 36008 CUBA HUIZAR DEPT 6 6 PHYSICIAN SARAH VISIT S, PLL HIGH SEVERITY& THREAT [facility] OMARI - 6 6 [facility] INPATIENT INC EMERGENCY 56086 CUBA JAQUEZ 6 6 PHYSICIAN FOR DE[facility]MEN S, [facility] MODERATE SEVERITY OFFICE 09114 [facility] DYLAN SIMMONS OUTPATIEN 6 6 PHYSICIAN MANJINDER T VISIT S GROUP 10 MINUTES OFFICE 15897 ISMAEL GUEVARA JR OUTPATIEN 6 6 YOJANA DWI T VISIT 15 MINUTES HOSPITAL OMARI - 6 6 [facility] OUTPATIEN INC T OFFICE 92919 [facility] DYLAN SIMMONS OUTPATIEN 6 6 PHYSICIAN MANJINDER T VISIT S GROUP 15 MINUTES HOSPITAL OMARI - 6 6 [facility] OUTPATIEN INC T OFFICE 49061 ISMAEL GUEVARA JR OUTPATIEN 6 6 YOJANA DWI T VISIT 15 MINUTES HOSPITAL OMARI - 6 6 [facility] OUTPATIEN INC T OFFICE 73080 ISMAEL GUEVARA JR OUTPATIEN 6 6 YOJANA DWI T VISIT 15 MINUTES OFFICE 71175 ISMAEL GUEVARA OUTPATIEN 6 6 YOJANA YOJANA T VISIT 15 MINUTES OFFICE 18019 ISMAEL GUEVARA JR OUTPATIEN 5 5 YOJANA DWI T VISIT 15 MINUTES HOSPITAL OMARI - 5 5 [facility] OUTPATIEN [facility] T OFFICE 56575 ISMAEL GUEVARA JR OUTPATIEN 5 5 YOJANA DWI T VISIT 15 MINUTES HOSPITAL OMARI - 5 5 [facility] - OTHER 5 5 [facility] OFFICE 79262 ISMAEL GUEVARA JR OUTPATIEN 5 5 YOJANA DWI T VISIT 15 MINUTES OFFICE 96669 [facility] ALLRAN OUTPATIEN 5 5 PHYSICIAN MANJINDER T VISIT S GROUP 15 MINUTES HOSPITAL OMARI - OTHER 5 5 [facility] OMARI - 5 5 [facility] OFF[facility] 64986 [facility] ALLRAN OUTPATIEN 5 5 PHYSICIAN MANJINDER T VISIT S GROUP 25 MINUTES HOSPITAL OMARI - 5 5 [facility] OMARI - 5 5 [facility] OMARI - OTHER 5 5 [facility] - OTHER 5 5 [facility] OFFICE 35069 ISMAEL GUEVARA JR OUTPATIEN 5 5 YOJANA DWI T VISIT 15 MINUTES HOSPITAL OMARI - OTHER 5 5 [facility] OFFICE 05420 ISMAEL GUEVARA JR OUTPATIEN 5 5 YOJANA DWI T VISIT 15 MINUTES HOSPITAL OMARI - 5 5 [facility] EMERGENCY 71988 OMARI 5 5 [facility] VISIT HIGH/URGE NT SEVERITY OFFICE 73819 ISMAEL GUEVARA JR OUTPATIEN 5 5 YOJANA DWI T VISIT 15 MINUTES HOSPITAL OMARI - OTHER 5 5 [facility] INC OFFICE 76103 ISMAEL GUEVARA JR OUTPATIEN 4 4 YOJANA DWI T VISIT 15 MINUTES OFFICE 06267 ISMAEL GUEVARA JR OUTPATIEN 4 4 YOJANA DWI T VISIT 15 MINUTES HOSPITAL OMARI - 4 4 [facility] OUTPATIEN [facility] T OFFICE 04919 [facility] ANJUR-SUKHDEV OUTPATIEN 4 4 [facility] CORNELIA T NEW 30 MEDICAL MINUTES G OFFICE 95526 ISMAEL GUEVARA JR OUTPATIEN 4 4 YOJANA DWI T VISIT 15 MINUTES HOSPITAL OMARI - 4 4 [facility] 30514 ISMAEL GUEVARA JR OUTPATIEN 4 4 YOJANA DWI T VISIT 15 MINUTES HOSPITAL OMARI - 4 4 [facility] EMERGENC[facility] 04949 OMARI 4 [address] [facility] T VISIT HIGH/URGE NT SEVERITY EMERGENCY 45346 [facility] DE[facility] 4 4 [facility] VISIT EMERGENCY HIGH PHYS SEVERITY& THREAT FUN OFFICE 80612 ISMAEL GUEVARA JR OUTPATIEN 4 4 YOJANA DWI T VISIT 15 MINUTES EMERGENCY 72715 [facility] 4 4 [facility] T VISIT MODERATE SEVERITY CRITICAL ST. ACCESS 4 4 [facility] OFFICE 82971 ISMAEL GUEVARA JR OUTPATIEN 4 4 [facility] DWI T VISIT 10 MINUTES [facility] - OTHER 4 4 [facility] OFFICE 28505 ISMAEL GUEVARA JR OUTPATIEN 4 4 [facility] DWI T VISIT 15 MINUTES OFFICE 81087 ISMAEL GUEVARA JR OUTPATIEN 4 4 [facility] DWI T VISIT 15 MINUTES [facility] 4 [facility] T [facility] - OTHER 4 4 [facility] OFFICE 49938 ISMAEL GUEVARA JR OUTPATIEN 4 4 [facility] DWI T VISIT 15 MINUTES OFFICE 89975 ISMAEL GUEVARA JR OUTPATIEN 4 4 [facility] DWI T VISIT 15 MINUTES EMERGENCY 49123 [facility] DEPT 4 4 [facility] VISIT EMERGENCY HIGH PHYS SEVERITY& THREAT FUNCJ OFFICE 67086 ISMAEL GUEVARA JR OUTPATIEN 4 4 [facility] DWI T VISIT 15 MINUTES OFFICE 74173 ISMAEL GUEVARA JR OUTPATIEN 4 4 [facility] DWI T VISIT 25 MINUTES [facility] - 4 4 [facility] 4 4 [facility] EMERGENC[facility] 93363 [facility] 4 4 [facility] DEPARTMEN EMERGENCY T VISIT PHYS HIGH/URGE NT SEVERITY EMERGENCY 45761 [facility] 4 [address] [facility] T VISIT MODERATE SEVERITY EMERGENCY 80870 [facility] 4 [address] [facility] T VISIT LOW/MODER SEVERITY EMERGENCY 42845 [facility] 4 4 [facility] DEPARTMEN EMERGENCY T VISIT PHYS MODERATE SEVERITY [facility] - 4 4 [facility] OTHER 4 4 [facility] - 3 3 [facility] OFF[facility] 33678 ISMAEL [facility]UEVARA JR OUTPATIEN 3 3 [facility]NA DWI T VISIT 15 MINUTES [facility] - 3 3 [facility] OFF[facility] 65621 [facility] 3 3 [place] [facility] MINUT[facility] OFFICE 64540 [facility] OUTPATI[facility] 3 3 [facility] 15 PSC MINUTES OFFICE 75755 [facility] AR[facility]A OUTPATIEN 3 3 DON DON T VISIT 15 MINUTES OFFICE 66997 [facility] ARAMUB[facility] OUTPATIEN 3 3 DON DON T VISIT 15 MINUTES Emergency TY Arias (ER) 3 14:41 3 16:55 [facility] EMERGENCY 82849 [facility] 3 3 [facility] DEPART[facility] T VISIT LOW/MODER SEVERITY EMERGENCY 26234 EMILY ARIAS DEPT 3 3 EMERGENCY [facility] VISIT SERVICES HIGH SEVERITY& THREAT [facility] - 3 3 [facility] OUTPATIEN INC Emergency TY Stark MD (ER) 3 20:06 3 23:03 [facility] EMERGENCY 83495 [facility] 3 3 [facility] DEPARTMEN INC T VISIT LOW/MODER SEVERITY [facility] - 3 3 [facility] OUTPATIEN [facility] EMERGENCY 44743 EMILY STARK DEPT 3 3 EMERGENCY [facility] VISIT SERVICES HIGH SEVERITY& THREAT [facility] OFFICE 97353 ARAMBULA ARAMBULA OUTPATIEN 3 3 DON DON T VISIT 15 MINUTES [facility] - 3 3 [facility] OFFICE 61403 [facility] ARAMBULA OUTPATIEN 3 3 DON DON T VISIT 25 MINUTES OFFICE 46152 [facility] ARAM[facility] OUTPATIEN 3 3 DON DON T VISIT 15 MINUTES [facility] - 3 3 [facility] T [facility] - 3 3 [facility] 3 3 [facility] - 3 3 [facility] - 3 3 [facility] - 3 3 [facility] - 3 3 [facility] - 3 3 [facility] - 3 3 [facility] 3 3 [facility] OFFICE 12980 [facility] ARAMBULA OUTPATIEN 3 3 DON DON T VISIT 15 MINUTES OFFICE 35974 [facility] ARAMBULA OUTPATIEN 2 2 DON DON T VISIT 15 MINUTES OFFICE 50065 [facility] ARAMBULA OUTPATIEN 2 2 DON DON T VISIT 25 MINUTES OFFICE 17151 [facility] ARAMBULA OUTPATIEN 2 2 DON DON T VISIT 25 MINUTES OFFICE 69790 [facility] AR[facility] OUTPATIEN 2 2 DON DON T VISIT 25 MINUTES OFFICE 90078 [facility] ARAMBULA OUTPATIEN 2 2 DON DON T VISIT 15 MINUTES [facility] - 2 2 [facility] EMERGENCY 97918 EMILY STARK DEPT 2 2 EMERGENCY [facility] VISIT SERVICES HIGH SEVERITY& THREAT FUN EMERGENCY [id number] OMARI 2 2 [facility] VISIT HIGH/URGE NT SEVERITY OFFICE 18961 JAIME [facility] SAJAN OUTPATIEN 2 2 [facility] ED [facility]ISIT CLINIC 15 PSC MINUTES [facility] - [facility] 2 [facility] INC OFFICE 66582 ARAMBULA ARAMBULA OUTPATIEN 2 2 DON DON T VISIT 15 MINUTES OFFICE 20276 ARAMBULA ARAMBULA OUTPATIEN 2 2 DON DON T VISIT 15 MINUTES HOSPITAL [facility] - 2 2 [facility]MARI - 2 2 [facility] OFFICE 71099 ARAMBULA ARAMBULA OUTPATIEN 2 2 DON DON T VISIT 15 MINUTES OFFICE 65415 ARAMBULA ARAMBULA OUTPATIEN 2 2 DON DON T VISIT 15 MINUTES OFFICE 16345 ARAMBULA ARAMBULA OUTPATIEN 1 1 DON DON T VISIT 15 MINUTES OFFICE 89316 ARAMBULA ARAMBULA OUTPATIEN 1 1 DON DON T VISIT 15 MINUTES OFFICE 46454 PAWSAT PAWSAT OUTPATIEN 1 1 MAR MAR T VISIT 10 MINUTES OFFICE 58016 ARAMBULA ARAMBULA OUTPATIEN 1 1 DON DON T VISIT 15 MINUTES EMERGENCY 56077 EMILY BRISENO BAB 1 1 [facility] T VISIT MODERATE SEVERITY OFFICE 28614 ARAMBULA ARAMBULA OUTPATIEN 1 1 DON DON T VISIT 15 MINUTES HOSPITAL [facility] - 1 1 [facility] OFFICE 92560 ARAMBULA ARAMBULA OUTPATIEN 1 1 DON DON T VISIT 15 MINUTES OFFICE 34846 ARAMBULA ARAMBULA OUTPATIEN 1 1 DON DON T VISIT 15 MINUTES OFFICE 26488 [place] [facility] OUTPATIEN 1 1 AKIKO AND T NEW 30 CLINIC MINUTES [facility] OFFICE 64897 ARAMBULA ARAMBULA OUTPATIEN 1 1 DON DON T VISIT 15 MINUTES OFFICE 90891 DERIK LOMELIT OUTPATIEN 1 1 [facility] T NEW 20 MINUTES [facility] - 1 1 [facility] T OFFICE 59566 JAIME [facility] OUTPATIEN 1 1 [facility] ED VISIT CLINIC 25 PSC MINUTES OFFICE 75514 ARAMBULA ARAMBULA OUTPATIEN 1 1 DON DON T VISIT 15 MINUTES OFFICE 55276 ARAMBULA ARAMBULA OUTPATIEN 1 1 DON DON T VISIT 15 MINUTES OFFICE 93933 ARAMBULA ARAMBULA OUTPATIEN 1 1 DON DON T VISIT 15 MINUTES OFFICE 77407 O[facility]I [facility] OUTPATIEN 1 1 [facility] VISIT HOSPITAL 15 P MINUTES OFFICE 40124 ARAMBULA ARAMBULA OUTPATIEN 1 1 DON DON T VISIT 15 MINUTES OFFICE 69938 ARAMBULA ARAMBULA OUTPATIEN 1 1 DON DON T VISIT 15 MINUTES [facility] - 1 1 [facility] INC T OFFICE 96909 ARAMBULA ARAMBULA OUTPATIEN 1 1 DON DON T VISIT 15 MINUTES OFFICE 32953 ARAMBULA ARAMBULA OUTPATIEN 0 0 DON DON T VISIT 15 MINUTES OFFICE 64826 ARAMBULA ARAMBULA OUTPATIEN 0 0 DON DON T VISIT 15 MINUTES OFFICE 76305 ARAMBULA ARAMBULA OUTPATIEN 0 0 DON DON T VISIT 15 MINUTES OFFICE 99761 ARAMBULA ARAMBULA OUTPATIEN 0 0 DON DON T VISIT 15 MINUTES EMERGENCY 87949 [facility] 0 0 [facility] T VISIT LOW/MODER SEVERITY [facility] - [facility] 0 [facility] OUT[facility] INC T EMERGENCY 51807 EMILY STARK 0 0 EMERGENCY [facility] DEPARTMEN SERVICES T VISIT HIGH/URGE NT SEVERITY OFFICE 55059 TYESHA ARAMBULA OUTPATIEN 0 0 DON DON T VISIT 15 MINUTES [facility]OSP[facility] - [facility] 0 [facility] T OFFICE 74990 TYESHA ARAMBULA OUTPATIEN 0 0 DON DON T VISIT 15 MINUTES OFFICE 87438 [facility] VARUN T VISIT UROLOGY 15 PSC MINUTES OFFICE 37038 TYESHA ARAMBULA OUTPATIEN 0 0 DON DON T VISIT 15 MINUTES OFFICE 32488 [facility] LTH VARUN T NEW 20 UROLOGY MINUTES PSC OFFICE 26455 TYESHA ARAMBULA OUTPATIEN 0 0 DON DON T VISIT 15 MINUTES OFFICE 60091 TYESHA ARAMBULA OUTPATIEN 0 0 DON DON T VISIT 15 MINUTES OFFICE 88945 TYESHA ARAMBULA, OUTPATIEN 0 0 DON R DON R T VISIT 15 MINUTES EMERGENCY 77388 [facility] 0 0 [facility] DEPART[facility] T VISIT LIMITED/M INOR PROB EMERGENCY 66930 EMILY STARK, 0 0 [facility]ER[facility] DEPARTMEN SERVICES T VISIT HIGH/URGE ASSOCIATE NT S SEVERITY [facility] T OFFICE 48321 TYESHA ARAMBULA OUTPATIEN 0 0 DON R DON R T VISIT 15 MINUTES OFFICE 25041 JAIME GEIGER OUTPATIEN 0 0 AKIKO Johnson T VISIT CLINIC 15 PSC MINUTES OFFICE 16276 TYESHA ARAMBULA OUTPATIEN 0 0 DON R DON R T VISIT 15 MINUTES HOSP[facility] - 0 0 [facility] OUTPATIEN INC T EMERGENCY 66531 EMILY GUNN, 0 0 EMERGENCY [facility] SERVICES T VISIT HIGH/URGE ASSOCIATE NT S SEVERITY EMERGENCY 41433 OMARI 0 0 [facility] T VISIT LIMITED/M INOR PROB OFFICE 15529 TYESHA ARAMBULA OUTPATIEN 0 0 DON R DON R T VISIT 15 MINUTES [facility]OSP[facility] - 0 0 [facility] OUT[facility]IEN INC T OFFICE 06764 TYESHA ARAMBULA OUTPATIEN 0 0 DON R DON R T VISIT 15 MINUTES [facility] - 0 0 [facility] INC T OFFICE 09056 [place] BANDAR MCLAIN 0 0 AND HAND NANDO A T NEW 10 SURGEONS MINUTES PSC OFFICE 92481 TYESHA ARAMBULA OUTPATIEN 0 0 DON R DON R T VISIT 25 MINUTES OFFICE 11588 TYESHA ARAMBULA OUTPATIEN 0 0 DON R DON R T VISIT 15 MINUTES OFFICE 24503 TYESHA ARAMBULA OUTPATIEN 9 9 DON R DON R T VISIT 15 MINUTES OFFICE 31854 TYESHA ARAMBULA OUTPATIEN 9 9 DON R DON R T VISIT 15 MINUTES [facility] - 9 9 [facility] T [facility] - 9 9 [facility] INPATIENT INC EMERGENCY 80766 EMILY STARK, DEPT 9 9 EMERGENCY [facility] VISIT SERVICES HIGH SEVERITY& ASSOCIATE THREAT S FUNCJ OFFICE 58190 TYESHA ARAMBULA OUTPATIEN 9 9 DON R DON R T VISIT 15 MINUTES OFFICE 70887 TYESHA ARAMBULA OUTPATIEN 9 9 DON R DON R T VISIT 15 MINUTES OFFICE 80118 TYESHA ARAMBULA OUTPATIEN 9 9 DON R DON R T VISIT 15 MINUTES OFFICE 48343 TYESHA ARAMBULA OUTPATIEN 9 9 DON R DON R T VISIT 25 MINUTES [facility]OSP[facility] - 9 9 [facility] OUTPATIEN INC T EMERGENCY 32646 OMARI 9 9 [facility] DEPARTMEN INC T VISIT MODERATE SEVERITY EMERGENCY 52503 EMILY RAINES, 9 9 EMERGENCY [facility] DEPARTMEN SERVICES T VISIT HIGH/URGE ASSOCIATE NT S SEVERITY [facility] OMARI - 9 9 [facility] OUTPATIEN INC T OFFICE 50797 BANDAR CARRASCO 9 9 AKIKO Johnson T VISIT CLINIC 25 PSC MINUTES OFFICE 68817 TYESHA ARAMBULA OUTPATIEN 9 9 DON R DON R T VISIT 15 MINUTES OFFICE 03589 BANDAR CARRASCO 9 9 AKIKO MADDY E T VISIT CLINIC 25 PSC MINUTES HOSPITAL [facility] - 9 9 [facility] OUTPATIEN INC T OFFICE 92554 TYESHA ARAMBULA OUTPATIEN 9 9 DON R DON R T VISIT 15 MINUTES OFFICE 14811 TYESHA ARAMBULA OUTPATIEN 9 9 DON R DON R T VISIT 15 MINUTES OFFICE 13924 TYESHA ARAMBULA OUTPATIEN 8 8 DON R DON R T VISIT 15 MINUTES OFFICE 88803 TYESHA ARAMBULA OUTPATIEN 8 8 DON R DON R T VISIT 15 MINUTES OFFICE 59320 TYESHA ARAMBULA OUTPATIEN 8 8 DON R DON R T VISIT 15 MINUTES OFFICE 14206 NEW [facility] BELL 8 8 [place] [facility] EMERGENCY 78980 EMERGENCY ACKERMAN, DEPT 8 8 PHYS CARL W VISIT [place] HIGH SEVERITY& THREAT FUN EMERGENCY 59008 [facility] 8 8 [facility] T VISIT MODERATE SEVERITY HOSPITAL [facility] 8 8 HOSPITAL OUTPATIEN T [facility] [place] - 8 8 [facility] 47842 TYESHA ARAMBULA OUTPATIEN 8 8 DON R DON R T VISIT 15 MINUTES OFFICE 49680 TYESHA ARAMBULA OUTPATIEN 8 8 DON R DON R T VISIT 15 MINUTES OFFICE 58293 TYESHA ARAMBULA OUTPATIEN 8 8 DON R DON R T VISIT 15 MINUTES OFFICE 34405 TYESHA ARAMBULA OUTPATIEN 8 8 DON R DON R T VISIT 15 MINUTES OFFICE 62759 TYEHSA ARAMBULA OUTPATIEN 8 8 DON R DON R T VISIT 15 MINUTES
--- OUTSIDE RECORDS SUMMARY | 2017-08-19 19:03 | External Medical Summary Rpt | CCD ---
Author Author , KARLIE ZIEGLER Address Unknown Phone [email or web address] Care Team Providers Care Weld Engineer Name Role Phone ALFARIS MOH, ALFARIS Unavailable Unavailable MOH ALLRAN JR MANJINDER, ALLRAN Unavailable Unavailable JR MANJINDER ANJUR-KAPALI CORNELIA, Unavailable Unavailable ANJUR-KAPALI CORNELIA [facility] Unavailable Unavailable [facility], [facility] Unavailable Unavailable CTR, [facility] GUPTALEE RASMUSSEN, GUPTA Unavailable Unavailable BRO BEINEKE ANGELIKA, BEINEKE Unavailable Unavailable ANGELIKA BESSON CASSANDRA, BESSON Unavailable Unavailable CASSANDRA ROGER, CARITO A, Unavailable Unavailable BESSON CARITO A SALVADOR, SALVADOR Unavailable Unavailable SALVADOR ALL, SALVADOR ALL Unavailable Unavailable [facility], Unavailable Unavailable [facility] Unavailable Unavailable SERVICE, [facility] Unavailable Unavailable SERVICE, [facility] ANDREA RAE IGN, Unavailable Unavailable ANDREA RAE IGN CARL ACKERMAN W, Unavailable Unavailable CARL ACKERMAN W DAMIAN SAJAN, DAMIAN SAJAN Unavailable Unavailable [facility] Unavailable Unavailable CAMPUS, [facility] Unavailable Unavailable ANESTHESIA, [facility] ANESTHESIA [facility] Unavailable Unavailable [facility], [facility] Unavailable Unavailable DUBILIER, [facility], Unavailable Unavailable [facility] BARROW JANET, BARROW Unavailable Unavailable JANET [facility] Unavailable Unavailable [place], [facility]available Unavailable [facility], [facility] Unavailable Unavailable [facility], [facility]available Unavailable [...] STARK S, Unavailable Unavailable MADDY STARK S [facility] Unavailable Unavailable INC, [facility] Unavailable Unavailable HOSPITAL P, [facility], Unavailable Unavailable [facility] HORN SAJAN, HORN SAJAN Unavailable Unavailable HORN, MADDY E, Unavailable Unavailable HORN, MADDY E BRENNAN ADI, BRENNAN Unavailable Unavailable ADI MAK, MAK Unavailable Unavailable LUCAS TRA, LUCAS TRA Unavailable Unavailable MANUELA ORTEGA, MANUELA Unavailable Unavailable ORTEGA CASEY CHARLES, CASEY CHARLES Unavailable Unavailable [facility] Unavailable Unavailable GROUP PS, [facility] Un[facility] Un[facility], [facility] Unavailable Unavailable IM[facility]ING [facility], [facility] Unavailable Unavailable MEDICAL G, [facility] KORBA ORTEGA, KORBA ORTEGA Unavailable [...] YOJANA E, Unavailable Unavailable ISMAEL, YOJANA E [facility] Unavailable Unavailable LABORATO, [facility] Unavailable Unavailable LABORATORY, [facility] Unavailable Unavailable SERVICES, [facility] RAY AND, Unavailable Unavailable RAY AND HANNY, JORGE F, Unavailable Unavailable JORGE GAMINO F CLAUDETTE ORTEGA, CLAUDETTE Unavailable Unavailable ORTEGA ARABELLAMAHESH IRELAND M, Unavailable Unavailable ARABELLAMAHESH IRELAND M [facility] Unavailable Unavailable [facility] NANDO PEREZ, Unavailable Unavailable NANDO [...] Unavailable Unavailable EQU[facility], [facility] Unavailable Unavailable EMERGENCY PHYS, [facility] NISHA SHE, Unavailable Unavailable NISHA SHE [facility], Unavailable Unavailable [facility] JESSE PARTHA, Unavailable Unavailable [facility] TYESHA DON, Unavailable Unavailable ARAMBULAKRISS ARAMBULA DON, [...] 2016 Problems Code Diagnosis DOS Provider Status [id number] UNSPECIFIED 07-17-2017 [facility] INJURY OF JESSE HEAD PARTHA INITIAL ENCOUNTER [id number] CONTUSION 07-17-2017 ST. OF LEFT SPANISH FORK FOREARM PARTHA INITIAL ENCOUNTER [id number] LACERATION 07-17-2017 ST. W/O FOREIGN JESSE BODY LT PARTHA FOREARM INITIAL C22261 OTHER LONG 07-17-2017 . TERM PSYCHIATRIC PARTHA DRUG THERAPY Z9181 HISTORY OF 07-17-2017 [facility] E875 HYPERKALEMI 07-06-2017 [facility] D649 ANEMIA 07-02-2017 [facility] UNSPECIFIED [facility] I10 ESSENTIAL 07-02-2017 [facility] PRIMARY [facility] HYPERTENSIO INC N K219 GASTRO-ESOP 07-02-2017 [facility] H REFLUX [facility] DISEASE INC WITHOUT ESOPHAGITIS N183 CHRONIC 07-02-2017 [facility] KIDNEY [facility] DISEASE INC STAGE 3 MODERATE Y12179 UNSPECIFIED 06-28-2017 [facility] ASTHMA HOME WITH ACUTE MEDICAL EXACERBATIO EQUIPME N J90 PLEURAL 06-16-2017 [place] EFFUSION MEDICAL NOT IMAGING ASS ELSEWHERE CLASSIFIED R0602 SHORTNESS 06-16-2017 [place] OF BREATH MEDICAL IMAGING ASS R062 WHEEZING 06-16-2017 [facility] R918 OTHER 06-16-2017 [place] NONSPECIFIC MEDICAL ABNORMAL IMAGING ASS FINDING OF LUNG FIELD I119 HYPERTENSIV 06-01-2017 [facility] E HEART PHYSICIANS DISEASE GROUP WITHOUT HEART FAILURE I4891 UNSPECIFIED 06-01-2017 [facility] ATRIAL PHYSICIANS FIBRILLATIO GROUP N R0600 DYSPNEA 06-01-2017 [facility] UNSPECIFIED [facility] INC Z950 PRESENCE OF 06-01-2017 [facility] CARDIAC PHYSICIANS PACEMAKER GROUP I2510 ASHD [place] 04-27-2017 [facility] 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 ANGINA PECTORIS I351 NONRHEUMATI 04-27-2017 [facility] C AORTIC PHYSICIANS VALVE GROUP INSUFFICIEN CY R296 REPEATED 04-27-2017 [facility] FALLS PHYSICIANS GROUP R5383 OTHER 04-27-2017 [facility] FATIGUE PHYSICIANS GROUP N84937 PAIN IN 04-23-2017 [place] LEFT ARM MEDICAL IMAGING ASS L44498 PAIN IN 04-23-2017 [facility] LEFT UPPER [facility] ARM INC R2232 LOCALIZED 04-23-2017 [facility] SWELLING [facility] MASS AND INC LUMP LEFT UPPER LIMB R600 LOCALIZED 04-23-2017 [place] EDEMA MEDICAL IMAGING ASS C8597 NON-HODGKIN 04-20-2017 [facility] LYMPHOMA [facility] UNSPECIFIED INC SPLEEN I272 OTHER 04-20-2017 [facility] SECONDARY [facility] PULMONARY INC HYPERTENSIO N I495 SICK SINUS 04-20-2017 [facility] SYNDROME PHYSICIANS GROUP R001 BRADYCARDIA 04-20-2017 [facility] PHYSICIANS UNSPECIFIED GROUP R002 PALPITATION 04-20-2017 [facility] S PHYSICIANS GROUP I482 CHRONIC 04-02-2017 [place] [facility] ATRIAL SERV FIBRILLATIO FOUNDATION N C8590 NON-HODGKIN 03-22-2017 [place] LYMPHOMA MEDICAL UNS IMAGING ASS UNSPECIFIED SITE I209 ANGINA 03-16-2017 [facility] PECTORIS [facility] UNSPECIFIED INC I208 OTHER FORMS 03-10-2017 [facility] OF ANGINA [facility] PECTORIS INC V76114 PERSONAL 02-26-2017 [place] [facility] OTH SERV [facility] THROMBOSIS& EMBOLISM K93602 ACUTE EMBO 02-23-2017 [facility] THROMB UNS PHYSICIANS DEEP VEINS GROUP UNS LOW EXTREM R42 DIZZINESS 02-23-2017 [facility] AND PHYSICIANS GIDDINESS GROUP I499 CARDIAC 02-03-2017 [facility] ARRHYTHMIA [facility] UNSPECIFIED HOSPITAL P I517 CARDIOMEGAL 02-03-2017 [place] Y MEDICAL IMAGING ASS W19699 SPONDYLOSIS 02-03-2017 [place] W/O MEDICAL MYELOPATH/R IMAGING ASS ADICULOPATH Y CERV RGN W12422 OTHER 02-03-2017 [place] CERVICAL MEDICAL DISC IMAGING ASS DEGENERATIO N AT C5-C6 LEVEL H13499 OTHER 02-03-2017 [place] CERVICAL MEDICAL DISC IMAGING ASS DEGENERATIO N AT C6-C7 LEVEL M542 CERVICALGIA 02-03-2017 [place] [facility] M545 LOW BACK 01-13-2017 [facility] PAIN [facility] R109 UNSPECIFIED 01-13-2017 [facility] ABDOMINAL [facility] PAIN INC R110 NAUSEA 01-13-2017 [facility] Z8673 PERSONAL HX 01-13-2017 [facility] TIA & [facility] CEREB INC INFARCT NO RESID DEFICIT M69008 PAIN IN 01-05-2017 [place] LEFT HIP MEDICAL IMAGING ASS U46160X FRACTURE 01-05-2017 [facility] LT IMAGING ASS PUBIS INIT ENC CLOS FX [id number] OTHER SPEC 01-05-2017 [facility] FX LT PUBIS PHYSICIANS, INITIAL PLLC CLOS FRACTURE J209 ACUTE 11-30-2016 ISMAEL SIMMONS BRONCHITIS UNSPECIFIED Z6830 BODY MASS 11-30-2016 ISMAEL JR INDEX BMI 30.0-30.9 ADULT H903 SENSORINEUR 08-04-2016 [place] EAR NOSE AL HEARING AND THROAT LOSS BILATERAL H905 UNSPECIFIED 08-04-2016 [place] [facility] AL HEARING LOSS D539 NUTRITIONAL 06-08-2016 [facility] ANEMIA HEALTH UNSPECIFIED CAMPUS D62 ACUTE 06-08-2016 [facility] POSTHEMORRH HEALTH AGIC ANEMIA CAMPUS R410 DISORIENTAT 06-08-2016 [facility] ION HEALTH UNSPECIFIED CAMPUS [id number] FX UNS PART 06-08-2016 [facility] NECK LT HEALTH FEMUR CAMPUS SUBSQT CLOS FX RTN M27893 PRESENCE OF 06-08-2016 [facility] HIP JOINT M659 SYNOVITIS 04-27-2016 [facility] & TENOSYNOVIT DUBILIER IS UNSPECIFIED R2242 LOCALIZED 04-27-2016 [place] SWELLING MEDICAL MASS AND IMAGING ASS LUMP LEFT LOWER LIMB V909FBL INFECTION 04-27-2016 [facility] FOLLOWING [facility] PROCEDURE INC INITIAL ENCOUNTER Z4889 ENCOUNTER 04-27-2016 [facility] FOR OTHER [facility] SPECIFIED INC SURGICAL AFTERCARE Z471 AFTERCARE 04-23-2016 [place] FOLLOWING MEDICAL JOINT IMAGING ASS REPLACEMENT SURGERY Z7401 BED 04-09-2016 [facility] AMBULANCE STATUS SERVICE I129 HYPERTENSIV 04-05-2016 [facility] E CKD [facility] W/STAGE 1-4 HOSPITAL P CKD OR UNS CKD S81839 ASHD [place] 04-05-2016 [facility] PALMA [facility] W/UNS INC ANGINA PECTORIS Q22531 PAIN IN 04-05-2016 [place] LEFT THIGH MEDICAL IMAGING ASS N179 ACUTE 04-05-2016 [facility] P UNSPECIFIED R079 CHEST PAIN 04-05-2016 [place] UNSPECIFIED MEDICAL IMAGING ASS W65241L FX UNS PART 04-05-2016 [facility] NECK LT PHYSICIANS, FEMUR PLLC INITIAL ENC CLOS FX D37693F UNS 04-05-2016 [place] INTRACAPSUL MEDICAL AR FX LT IMAGING ASS FEMUR INIT ENC CLOS FX H85AFHD UNSPECIFIED 04-05-2016 [facility] FALL PHYSICIANS INITIAL GROUP ENCOUNTER Z9889 OTHER 04-05-2016 [place] SPECIFIED MEDICAL POSTPROCEDU IMAGING ASS [facility] STATES R0781 PLEURODYNIA 03-30-2016 [place] [facility] R0789 OTHER CHEST 03-30-2016 [facility] PAIN PHYSICIANS, PLLC R911 SOLITARY 03-30-2016 [place] PULMONARY MEDICAL NODULE IMAGING ASS R1031 RIGHT LOWER 03-23-2016 [facility] QUADRANT PHYSICIANS PAIN GROUP R197 DIARRHEA 02-25-2016 COMM[facility] UNSPECIFIED ANESTH OF THE BLUE L299 PRURITUS 02-21-2016 [facility] UNSPECIFIED YOJANA Q90666 SPONDYLOSIS 02-21-2016 [facility] W/O YOJANA MYELOPATH/R ADICULPATHY LS RGN N281 CYST OF 02-21-2016 [place] KIDNEY MEDICAL ACQUIRED IMAGING ASS R1030 LOWER 02-21-2016 [facility] ABDOMINAL YOJANA PAIN UNSPECIFIED R312 OTHER 02-21-2016 [facility] MICROSCOPIC [facility]JANA HEMATURIA R319 HEMATURIA 02-21-2016 [place] UNSPECIFIED MEDICAL IMAGING ASS Z6833 BODY MASS 02-21-2016 [facility] INDEX BMI YOJANA 33.0-33.9 ADULT R05 COUGH 01-07-2016 [place] [facility] R509 FEVER 01-07-2016 [place] UNSPECIFIED MEDICAL IMAGING ASS A084 VIRAL 12-18-2015 [facility] INTESTINAL YOJANA INFECTION UNSPECIFIED M150 PRIMARY 09-30-2015 [facility] GENERALIZED PHYSICIANS LA OSTEOARTHRI TIS Z23 ENCOUNTER 08-30-2015 [facility] FOR YOJANA IMMUNIZATIO N Z6831 BODY MASS 08-30-2015 [facility] INDEX BMI YOJANA 31.0-31.9 ADULT 2761 HYPOSMOLALI 08-02-2015 [facility] TY AND/OR [facility] HYPONATREMI INC A 2859 UNSPECIFIED 08-02-2015 [facility] ANEMIA [facility] INC 35995 UNS 08-02-2015 [facility] GASTRITIS&G [facility] ASTRODUODIT INC IS W/O MENTION HEMORR 41489 PAIN IN 08-02-2015 [place] JOINT MEDICAL PELVIC IMAGING ASS REGION AND THIGH 51660 OTHER 07-15-2015 [facility] DYSPNEA AND CO AMBULANCE RESPIRATORY TAXIN ABNORMALITI ES 0093 DIARRHEA OF 07-02-2015 [facility] PRESUMED YOJANA INFECTIOUS ORIGIN 4011 ESSENTIAL 07-02-2015 [facility] HYPERTENSIO YOJANA N, BENIGN 5853 CHRONIC 07-02-2015 [facility] KIDNEY YOJANA DISEASE STAGE III (MODERATE) 7242 LUMBAGO 07-02-2015 [place] [address] OTHER 07-02-2015 ISMAEL MALAISE AND YOJANA FATIGUE V8533 BODY MASS 07-02-2015 [facility] INDEX YOJANA 33.0-33.9 ADULT 7295 PAIN IN 06-24-2015 [place] SOFT MEDICAL TISSUES OF IMAGING ASS LIMB 7823 EDEMA 06-24-2015 [place] [facility] 2724 OTHER AND 06-21-2015 [facility]MAEL UNSPECIFIED YOJANA HYPERLIPIDE SHERYL 75164 DEHYDRATION 06-21-2015 ISMAEL YOJANA 412 OLD 06-21-2015 [facility] MYOCARDIAL YO[facility]NA INFARCTION 82768 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 [facility] NODE [place] DYSFUNCTION 84611 ATROPHIC 06-21-2015 [facility] GASTRITIS YOJANA WITHOUT MENTION OF HEMORRHAGE 84399 OTHER 06-21-2015 [place] ALTERATION [place] [address] FEVER 06-21-2015 [facility] UNSPECIFIED YOJANA 11992 ALTERED 06-21-2015 [place] MENTAL MEDICAL STATUS IMAGING ASS 7862 COUGH 06-21-2015 [place] [facility] V1079 PERSONAL HX 06-21-2015 [facility] OTH [facility] LYMPHATIC&H EMATOPOIETI C NEOPLASM V1254 PERSONAL HX 06-21-2015 [facility] TIA & CI YO[place]NA W/O RESIDUAL DEFICITS 5990 URINARY 06-12-2015 [facility] TRACT PHYSICIANS INFECTION LA SITE NOT SPECIFIED 45787 OTH & UNS E 05-28-2015 [facility] COLI [facility] INFECTION INC CLASS ELSW UNS SITE 30489 UNSPECIFIED 05-24-2015 [place] [address] GENERALIZED 05-24-2015 ISMAEL YOJANA OSTEOARTHRO SIS UNSPECIFIED SITE 7213 LUMBOSACRAL 05-24-2015 ISMAEL YOJANA SPONDYLOSIS WITHOUT MYELOPATHY V8534 BODY MASS 05-24-2015 [facility] INDEX YOJANA 34.0-34.9 ADULT 36198 ABDOMINAL 04-15-2015 [facility] PAIN RIGHT PHYSICIANS LOWER GROUP QUADRANT 93041 PAIN IN 03-26-2015 [facility] JOINT, MEM [facility]OS[facility] SHOULDER INC REGION 81307 DIARRHEA 03-26-2015 [facility] INC 67113 OTH MALIG 03-01-2015 [place] LYMPHOMAS MEDICAL UNS SITE IMAGING ASS XTRANOD&SEBAS ID ORGN 5932 ACQUIRED 03-01-2015 [place] CYST OF MEDICAL KIDNEY IMAGING ASS 52293 ABDOMINAL 03-01-2015 [facility] PAIN, LEFT [facility] LOWER INC QUADRANT 39438 ESOPHAGEAL 01-30-2015 [facility] REFLUX PHYS SURG CTR 04334 GASTR ULCR 01-30-2015 [facility] UNS PHYS SURG ACUT/CHRN CTR W/O HEMOR PERF/OBST 5379 UNSPECIFIED 01-30-2015 [facility] DISORDER EMMA & OF STOMACH DUBILIER AND DUODENUM 46861 NAUSEA 01-30-2015 [facility] ALONE [place] ANESTHESIA 13542 ABDOMINAL 01-30-2015 [facility] PAIN, [place] EPIGASTRIC ANESTHESIA 58892 NONEXUDATIV 01-29-2015 [place] 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 30207 REGULAR 01-29-2015 [place] ASTIGMATISM EYE INSTITUTE 65433 OTHER 01-25-2015 [facility] SPECIFIED YOJANA ERYTHEMATOU S CONDITION OTHER 460 ACUTE 12-19-2014 [facility] NASOPHARYNG YO[facility]NA ITIS 28507 ASTHMA, 12-19-2014 [facility] UNSPECIFIED YOJANA , UNSPECIFIED STATUS 4660 ACUTE 12-16-2014 [facility] BRONCHITIS [facility] INC V8535 BODY MASS 12-07-2014 [facility] INDEX YOJANA 35.0-35.9 ADULT 4779 ALLERGIC 10-30-2014 [facility] RHINITIS [place]NA CAUSE UNSPECIFIED 4019 UNSPECIFIED 10-18-2014 [facility] ESSENTIAL [facility] HYPERTENSIO INC N 70859 COR 10-18-2014 [facility] ATHEROSLERO [facility] UNSPEC INC TYPE VESSEL PASSAMA[place]/MORRO T 27982 CHEST PAIN 10-18-2014 [place] [facility] UNSPECIFIED SERV [facility]OUND[facility] 46272 CORONARY 10-11-2014 [facility] OSIS [place] MEDICAL G CORONARY ARTERY 7851 PALPITATION 10-11-2014 [facility] MEDICAL G 96692 PRECORDIAL 10-11-2014 [facility] MEDICAL G 4610 ACUTE 10-01-2014 [facility] MAXILLARY [place] SINUSITIS 4720 CHRONIC 10-01-2014 [facility] RHINITIS [place]NA 7881 DYSURIA 10-01-2014 ISMAEL YOJANA 82438 SHORTNESS 09-18-2014 [facility] BREATH MEDICAL IMAGING ASS 4139 OTHER AND 09-12-2014 [facility] UNSPECIFIED [facility] ANGINA INC PECTORIS 5758 OTHER 09-12-2014 [facility] SPECIFIED [facility] DISORDER OF INC GALLBLADDER 75137 OTHER 09-12-2014 [facility] CONVULSIONS [facility] INC 82967 OTHER CHEST 09-12-2014 [facility] PA[facility] N EMERGENCY PHYS V140 PERSONAL 09-12-2014 [facility]ISTORY OF [facility] ALLERGY TO [facility] P PENICILLIN V148 PERSONAL 09-12-2014 [facility] HISTORY [facility] ALLERGY [facility] P SPEC MEDICINAL AGTS V1582 PERS HX 09-12-2014 [facility] TOBACCO USE [facility] H[facility]P PRESENTING INC HAZARDS HE[facility] V719 OBSERVATION 09-12-2014 [place] FOR MEDICAL UNSPECIFIED IMAGING ASS SUSPECTED CONDITION 18594 UNSPEC 08-28-2014 [facility] DISORDERS YOJANA BURSAE&TEND ONS SHOULDER REGION 66311 CONTUSION 08-28-2014 [facility] OF SHOULDER [place] REGION E8889 UNSPECIFIED 08-28-2014 [facility] FALL [place] V0481 NEED 08-28-2014 [facility] PROPHYLACTI [facility]NA C VACCINATION &INOCULATIO N FLU 9592 INJURY 08-19-2014 ST. OTHER&UNSPE JESSE CIFIED PARTHA SHOULDER&UP PER ARM V5869 LONG-TERM 08-19-2014 ST. (CURRENT) JESSE USE OF PARTHA OTHER MEDICATIONS 5597 HYPERPOTASS 08-14-2014 [facility] EMIA YO[place]NA 7291 UNSPECIFIED 08-06-2014 [facility] MYALGIA [place] AND MYOSITIS 7827 SPONTANEOUS 08-06-2014 [facility] ECCHYMOSES [facility] 79090 DIVERTICULI 07-24-2014 [facility] TIS OF [place] COLON 7243 SCIATICA 07-16-2014 [facility] HOSP INC 5693 HEMORRHAGE 05-21-2014 IS[facility] OF RECTUM [place]NA AND ANUS 7802 SYNCOPE AND 05-21-2014 [facility] COLLAPSE [place] 5589 OTH&UNSPEC 05-09-2014 [facility] NONINFECTIO [facility] P GASTROENTER ITIS&COLITI S 88720 NAUSEA WITH 05-09-2014 [facility] VOMITING [facility] P E9390 ANTIDEPTSSN 05-09-[address] [facility] P EFFECT THERAPEUTIC USE 22704 OTHER 05-08-2014 [facility] SPECIFIED N EMERGENCY CARDIAC PHYS DYSRHYTHMIA S 5789 UNSPECIFIED 05-08-2014 [facility] HEMORRHAGE Y[place]NA OF GASTROINTES TINAL TRACT 7852 UNDIAGNOSED 05-08-2014 [place] [facility] CARDIAC SERV MURMURS FOUNDATIO 496 CHRONIC 03-06-2014 [place] AIRWAY MEDICAL OBSTRUCTION IMAGING ASS NEC 5110 PLEURISY 03-06-2014 [facility] WITHOUT [place]OJANA MENTION EFFUS/CURRE NT TB 7197 DIFFICULTY 03-06-2014 [place] IN WALKING MEDICAL IMAGING ASS 65648 CONTUSION 03-06-2014 ISMA[facility] OF FOOT YOJANA 8488 OTHER 02-26-2014 [facility] SPECIFIED N EMERGENCY SITES OF PHYS SPRAINS AND STRAINS V141 PERSONAL 02-26-2014 [facility] HOSP ALLERGY INC OTHER ANTIBIOTIC AGENT 76869 UNSPECIFIED 01-26-2014 [facility] N EMERGENCY INFECTION PHYS IN CCE & UNS SITE 7245 UNSPECIFIED 01-26-2014 [facility] BACKACHE N EMERGENCY PHYS 0091 COLITIS 01-04-2014 [facility] ENTERIT&GAS HOME TROENTERIT MEDICAL INF ORIGIN EQUIPME 436 ACUTE BUT 01-04-2014 [facility] ILL-DEFINED HOME MEDICAL CEREBROVASC EQUIPME ULAR DISEASE 7231 CERVICALGIA 10-24-2013 [facility] HOSP INC 3674 PRESBYOPIA 07-03-2013 [place] [facility] V431 LENS 07-03-2013 [facility] OTHER IN[facility] MEANS 7224 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-30-2013 [facility] [place] 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 21007 MACULAR 04-04-2013 [facility] DEGENERATIO DON N OF RETINA UNSPECIFIED 26905 STRABISMIC 03-22-2013 [place] [facility] AMBLYOPIA SERV FOUNDATIO 93843 OTHER 03-22-2013 [place] [facility] VITREOUS SERV OPACITIES FOUNDATIO 8052 CLOS FX 02-27-2013 [facility] DORS DON VERTEBRA W/O MENTION SP CORD INJURY 79521 LEUKOCYTOSI 02-23-2013 [facility] EMERGENCY UNSPECIFIED SERVICES V5878 AFTERCARE 02-23-2013 [facility] EMERGENCY SURGERY SERVICES MUSCULOSKEL SYSTEM NEC 09998 ACUTE PAIN 02-22-2013 [facility] DUE TO EMERGENCY TRAUMA SERVICES 35929 PATHOLOGIC 02-22-2013 [place] FRACTURE OF ANESTHESIA VERTEBRAE GROUP PS V7283 OTHER 02-21-2013 [facility] [place] SPECIFIED RADIOLOGY PRE-OPERATI VE EXAMINATION 25932 DISPLCMT 02-20-2013 [place] LUMBAR MEDICAL INTERVERT IMAGING ASS DISC W/O MYELOPATHY 69341 SPINAL STEN 02-20-2013 [place] LUMB REG MEDICAL W/O IMAGING ASS NEUROGENIC CLAUDICATIO N 805.2 805.2 FX 02-20-2013 [facility] DORSAL [facility] ER OSE E849.0 E849.0 02-20-2013 [facility] ACCIDENT IN [facility] E885.9 E885.9 FALL 02-20-[address] [facility] SLIPPING, Hospital TRIPPING, OR STUMBLING NEC E8888 OTHER FALL 02-20-2013 [facility] 6259 UNSPEC 02-15-2013 [place] [facility] IMAGING ASS W/FEMALE GENITAL ORGANS 7840 HEADACHE 02-15-2013 [place] [facility] 8470 NECK SPRAIN 02-15-2013 [facility] AND [facility]GENCY SERVICES 8472 LUMBAR 02-15-2013 [facility] STRAIN SERVICES 8500 CONCUSSION 02-15-2013 [facility] WITH NO EMERGENCY LOSS OF SERVICES CONSCIOUSNE SS 9222 CONTUSION 02-15-2013 [facility] ABDOMINAL SERVICES WALL 33427 CONTUSION 02-15-2013 [facility] OF HIP [facility] INC 13252 HEAD 02-15-2013 [place] INJURY, MEDICAL UNSPECIFIED IMAGING ASS V4364 HIP JOINT 02-15-2013 [place] REPLACEMENT MEDICAL BY OTHER IMAGING ASS MEANS 4659 ACUTE URIS 02-13-2013 [facility] OF DON UNSPECIFIED SITE 7804 DIZZINESS 02-13-2013 [facility] AND DON GIDDINESS 50960 PAIN IN 01-18-2013 [facility] JOINT, MEM HOS[facility] MULTIPLE INC SITES 69908 PAIN IN 01-17-2013 [facility] JOINT, DON LOWER LEG 9597 INJURY 01-17-2013 [facility] OTHER&UNSPE DON CIFIED KNEE LEG ANKLE&FOOT 87514 UNSPECIFIED 12-27-2012 [place] [facility] [place] [address] METH[place]ILL[place] 12-23-2012 [facility] RESISTANT [facility] STAPHYLOCOC INC CUS AUREUS 97741 OTHER 12-23-2012 [facility] DISEASES OF [facility] NASAL INC CAVITY AND SINUSES 40926 NASAL 12-06-2012 [facility] MUCOSITIS DON ULCERATIVE 7078 CHRONIC 12-06-2012 [facility] ULCER OF [facility] OTHER INC SPECIFIED SITE 3804 IMPACTED 08-03-2012 [facility] CERUMEN [facility] 11202 CHRONIC 08-03-2012 [facility] FATIGUE DON SYNDROME 48291 OTHER 06-22-2012 [facility] CHRONIC DON PAIN 7873 FLATULENCE 06-17-2012 [facility] ERUCTATION DON AND GAS PAIN 64621 OTHER 06-03-2012 [facility] SPECIFIED DON TYPES OF CYSTITIS 4293 CARDIOMEGAL 05-14-2012 [place] Y [facility] 03795 NONSPECIFIC 05-14-2012 [facility] EMERGENC[facility] ELECTROCARD SERVICES IOGRAM V1090 PERSONAL 05-14-2012 [place] HISTORY MEDICAL UNSPECIFIED IMAGING ASS MALIGNANT NEOPLASM V711 OBSERVATION 05-14-2012 [place] FOR MEDICAL SUSPECTED IMAGING ASS MALIGNANT NEOPLASM 66871 OTHER 04-28-2012 [facility]NANT [facility] 3898 OTHER 02-17-2012 [facility] SPECIFIED DON FORMS OF HEARING LOSS 23421 GASTROJEJ 02-17-2012 [facility] ULCR UNS DON ACUT/CHRN W/O HEMOR PERF/OBST 20287 PAIN IN 01-06-2012 [facility] JOINT, SITE [facility] INC UNSPECIFIED 6160 CERVICITIS 12-16-2011 [place] AND MEDICAL ENDOCERVICI IMAGING ASS TIS 6203 ACQUIRED 12-16-2011 [place] ATROPHY OF MEDICAL OVARY AND IMAGING ASS FALLOPIAN TUBE 6219 UNSPECIFIED 12-16-2011 [place] DISORDER MEDICAL OF UTERUS IMAGING ASS 24748 OSTEOARTHRO 12-11-2011 [facility] S INVLV MX DON SITES [place] 96642 HEMATURIA 11-30-2011 [place] UNSPECIFIED DON 16301 OTHER 11-30-2011 [place] SPECIFIED DON DISORDERS OF URINARY TRACT 46876 UNSPECIFIED 10-19-2011 [place] OTALGIA DON 53309 MUSCLE 10-19-2011 [place] WEAKNESS DON (GENERALIZE D) 31948 DIVERTICULO 07-22-2011 [place] SIS OF DON COLON 1104 DERMATOPHYT 07-10-2011 [facility] OSIS OF FOOT 9168 OTH&UNS SUP 07-07-2011 [place] INJR HIP DON THI LEG&ANK W/O MENTION INF 9190 ABRASION/FR 06-26-2011 [place] [facility] OTH MX&UNS SERVICES SITE W/O INF 5950 ACUTE 05-28-2011 [facility] CYSTITIS [facility] 6929 CONTACT 05-22-2011 [facility] DERMATITIS& OTHER ECZEMA DUE UNSPEC CAUSE 7011 ACQUIRED 05-22-2011 [facility] KERATODERMA 53171 OTHER 04-20-2011 [place] SPECIFIED DON CIRCULATORY SYSTEM DISORDERS 01781 CONTUSION 04-20-2011 [place] MULTIPLE DON SITES SHOULDER&UP PER ARM 5952 OTHER 02-05-2011 [facility] P 1129 CANDIDIASIS 01-07-2011 [place] OF [facility] UNSPECIFIED SITE 4280 CONGESTIVE 01-07-2011 [place] HEART DON FAILURE UNSPECIFIED 2768 HYPOPOTASSE 12-31-2010 [facility] 8910 OPEN WOUND 10-22-2010 [place] KNEE DON LEG&ANK WITHOUT MENTION COMP V5832 ENCOUNTER 10-22-2010 [place] FOR REMOVAL DON OF SUTURES 14725 PHACOLYTIC 08-06-2010 [facility] SERV FOUNDATIO 4618 OTHER ACUTE 07-29-2010 [place] SINUSITIS DON 1880 MALIGNANT 06-26-2010 [place] NEOPLASM OF H [facility] URINARY BLADDER 44022 SPASM OF 06-06-2010 [place] MUSCLE DON 69745 DEGEN 05-04-2010 [facility] LUMBAR/LUMB EMERGENCY OSACRAL SERVICES [facility] RAL DISC OTHER MALIG 04-22-2010 NEW [place]YMPHOMAS [place] LYMPH NODES [facility] MULTIPLE SITES V6709 FOLLOW-UP 01-17-2010 [facility]THO EXAMINATION AND HAND FOLLOWING SURGEONS OTHER [facility] SURGERY 6256 FEMALE 01-13-2010 TYES[place], STRESS DON R INCONTINENC E V7651 SPECIAL 01-13-2010 [place], SCREENING DON R FOR MALIGNANT NEOPLASMS COLON 1629 MALIGNANT 09-09-2009 [place] NEOPLASM [facility] UNSPEC [facility] SITE 4148 OTHER SPEC 08-30-2009 [place], FORMS DON R CHRONIC ISCHEMIC HEART DISEASE 8208 CLOSED 08-30-2009 [place], FRACTURE DON R UNSPECIFIED PART NECK FEMUR 00221 POSTPROCEDU 08-21-2009 [facility] PROF SERV 24911 OTHER 08-20-2009 PATHOLOGY & CLOSED CYTOLOGY TRANSCERVIC LAB AL FRACTURE OF FEMUR 81811 INF DUE OTH 08-19-2009 [facility] GM-NEGATIVE INC ORGANISMS CCE & UNS SITE 09677 ABDOMINAL 08-19-2009 [facility] PAIN OTHER EMERGENCY SPECIFIED SERVICES SITE ASSOCIATES 15674 CLOSED 08-19-2009 [facility] DISLOCATION AMBULANCE OF HIP SERVICE UNSPECIFIED SITE 9596 INJURY 08-19-2009 [place] OTHER AND AMBULANCE UNSPECIFIED SERVICE HIP AND THIGH E8859 FALL FROM 08-19-2009 [place] OTHER EMERGENCY SLIPPING SERVICES TRIPPING OR ASSOCIATES STUMBLING 93785 UNSPECIFIED 08-14-2009 [facility] SERV OPACITY FOUNDATIO V0382 NEED PROPH 07-31-2009 [place], VACCINATION DON R AGAINST STREP PNEUMONE 38407 SPRAIN AND 06-10-2009 [place], STRAIN OF DON R UNSPECIFIED SITE OF WRIST 76540 UNSPECIFIED 06-10-2009 [place], SITE OF DON R ANKLE SPRAIN AND STRAIN E8490 PLACE OF 06-07-2009 [place] OCCURRENCE, [facility]ICAL [facility] E8844 ACCIDENTAL 06-07-2009 [facility] FALL FROM EMERGENCY BED SERVICES [facility] 24359 SECONDARY 09-19-2008 [facility] EDEMA FOUNDATIO 86187 SPONDYLOSIS 08-22-2008 NEW UNSPEC [place] SITE W/O CLINIC PSC MENTION MYELOPATHY V1072 PERSONAL 08-22-2008 NEW H[facility]ORY OF [place] [facility] PSC DISEASE 41223 ATRIAL 07-01-2008 [facility] N 90701 ABDOMINAL/P 07-01-2008 [facility] SWELLING MASS/LUMP UNSPEC SITE 71580 UNSPECIFIED 03-02-2008 [place], DON R OSTEOPOROSI S [...] er -A 2 CE Ac TA ti FL ve NO PH EN 5- 32 5 [...] SQUARE METERS Comment: If this patient is -[facility], then multiply the Comment: result by 1.210. [...] Procedure DOS Code Location Performer Comment BLOOD [address] COUNT 7 [facility] COMPLETE [facility] AUTO&AUTO DIFRNTL WBC COLLECTIO [address] N VENOUS 7 [facility] BLOOD [facility] VENIPUNCT URE RADEX [address] HUMERUS 7 [facility] MINIMUM 2 [facility] VIEWS CULTURE [address] BACTERIAL 7 [facility] PARTHA [place] [address] HEAD/BRAI 7 [facility] N W/O [facility] CONTRAST MATERIAL RADIOLOGI [address] C 7 [facility] EXAMINATI [facility] PARTHA ON CHEST SINGLE VIEW FRONTAL URNLS DIP [address] 7 [facility] STICK/TAB [facility] LET REAGENT AUTO MICROSCOP Y BASIC [address] METABOLIC 7 [facility] PANEL PAR[facility]A PARTHA CALCIUM TOTAL ECG [address] ROUTINE 7 [facility] ECG PARTHA PARTHA W/LEAST 12 LDS TRCG ONLY W/O I&R BASIC 31962 OMARI SALCIDO METABOLIC 7 [facility] PANEL INC INC CALCIUM TOTAL BASIC 84200 OMARI SALCIDO METABOLIC 7 [facility] PANEL INC INC CALCIUM TOTAL BLOOD 35380 OMARI SALCIDO COUNT 7 [facility] COMPLETE INC INC AUTO&AUTO DIFRNTL WBC NEBULIZER E0570 MICHELLE MARTINEZ WITH 7 HOME HOME COMPRESSO MEDICAL MEDICAL R EQUIPME EQUIPME RADIOLOGI 14408 [facility] C EXAM 7 MEDICAL CHEST 2 IMAGING VIEWS ASS FRONTAL&L ATERAL ECG 04196 [facility] ROUTINE 7 PHYSICIAN ECG S GROUP W/LEAST 12 LDS I&R ONLY ECG 07544 OMARI SALCIDO ROUTINE 7 [facility] ECG INC INC W/LEAST 12 LDS TRCG ONLY W/O I&R INTERROGA 07267 [facility] TION EVAL 7 PHYSICIAN REMOTE S GROUP </90 D 1/2/SCORER HELPER LEAD PM ECG 82227 OMARI CALLEON ROUTINE 7 [facility] ECG INC INC W/LEAST 12 LDS TRCG ONLY W/O I&R ECG 19639 [facility] ROUTINE 7 PHYSICIAN ECG S GROUP W/LEAST 12 LDS I&R ONLY DUP-SCAN 37332 [facility] XTR VEINS 7 MEDICAL IMAGING UNILATERA ASS L/LIMITED STUDY BASIC 60068 OMARI SALCIDO METABOLIC 7 [facility] PANEL INC INC CALCIUM [facility] G0378 OMARI OMARI OBSERVATI 7 [facility] ON INC INC SERVICE PER HOUR NONINVASI 66141 OMARI OMARI VE 7 [facility] EAR/PULSE INC INC OXIMETRY SINGLE DETER COLLECTIO 07728 OMARI CALLEON N VENOUS 7 [facility] BLOOD INC INC VENIPUNCT URE BLOOD 96838 OMARI SALCIDO COUNT 7 [facility] COMPLETE INC INC AUTO&AUTO DIFRNTL WBC BLOOD 78263 OMARI SALCIDO COUNT 7 [facility] COMPLETE INC INC AUTO&AUTO DIFRNTL WBC PACEMAKER C1785 OMARI OMARI DUAL 7 [facility] CHAMBER INC INC RATE-RESP ONSIVE ANES 83832 [facility] PERMANENT 7 ANESTH OF THE TRANSVENO BLUE US PACEMAKER INSERTION LEAD C1898 OMARI CALLEON PACEMKR 7 [facility] OTH THAN [place] [address] OMARI SALCIDO NEW/RPLC 7 [facility] PRM INC INC PACEMAKER W/TRANSV ELTRD [facility] G0378 OMARI OMAIR OBSERVATI 7 [facility] ON INC INC SERVICE PER HOUR RADIOLOGI 76511 [place] SALVADOR C 7 MEDICAL EXAMINATI IMAGING ON CHEST ASS SINGLE VIEW FRONTAL ECG 75718 [facility] RIKI ROUTINE 7 PHYSICIAN ECG S GROUP W/LEAST 12 LDS I&R ONLY BASIC 62591 OMARI SALCIDO METABOLIC 7 [facility] [place] [address] OMARI SALCIDO INFUSION 7 [facility] THERAPY/P INC INC ROPHYLAXI S /DX 1ST TO 1 HR THERAPEUT 66528 OMARI SALCIDO IC 7 [facility] INJECTION INC INC IV PUSH EACH NEW DRUG PRESSURIZ 06925 OMARI SALCIDO ED/NONPRE 7 [facility] SSURIZED INC INC INHALATIO N TREATMENT ECG 48836 OMARI SALCIDO ROUTINE 7 [facility] ECG INC INC W/LEAST 12 LDS TRCG ONLY W/O I&R LOCM Q9967 OMARI SALCIDO [phone] [facility] MG/ML INC INC IODINE CONCENTRA TION PER ML [facility]ORAX 86114 [facility] MEDICAL W/[place] [address] OMARI SALCIDO UREA 7 [facility] NITROGEN INC INC QUANTITAT RIGO COLLECTIO 64717 OMARI SALCIDO N VENOUS 7 [facility] BLOOD INC INC VENIPUNCT URE CREATININ 83889 OMARI SALCIDO E BLOOD 7 [facility] INC INC ECG 43581 [facility] RIKI ROUTINE 7 PHYSICIAN ECG S GROUP W/LEAST 12 LDS I&R ONLY ECG 53970 OMARI SALCIDO ROUTINE 7 [facility] ECG INC INC W/LEAST 12 LDS TRCG ONLY W/O I&R TECHNETIU A9502 OMARI Hernandez TC-99M 7 [facility] TETROFOSM INC INC IN DX PER STUDY DOSE CV STRS 66820 OMARI SALCIDO TST 7 [facility] XERS&/OR INC INC RX CONT ECG TRCG ONLY MYOCARDIA 65154 OMARI SALCIDO L SPECT 7 [facility] MULTIPLE INC INC STUDIES INJECTION J2785 OMARI SALCIDO 7 [facility] REGADENOS INC INC ON 0.1 MG ECG 96543 OMARI SALCIDO ROUTINE 7 [facility] ECG INC INC W/LEAST 12 LDS TRCG ONLY W/O I&R ECG 17720 OMARI SALCIDO ROUTINE 7 [facility] ECG INC INC W/LEAST 12 LDS TRCG ONLY W/O I&R XTRNL ECG 00423 OMARI SALCIDO & 48 HR 7 [facility] RECORDING INC INC ECG 37289 [facility] RIKI ROUTINE 7 PHYSICIAN ECG S GROUP W/LEAST 12 LDS I&R ONLY ECHO 42290 OMARI SALCIDO TTHRC R-T 7 [facility] 2D INC INC W/WOM-MOD E COMPL SPEC&COLR D ECG 23010 [facility] RIKI ROUTINE 7 PHYSICIAN ECG S GROUP W/LEAST 12 LDS I&R ONLY ECG 17623 OMARI SALCIDO ROUTINE 7 [facility] ECG INC INC W/LEAST 12 LDS TRCG ONLY W/O I&R ECG 65486 OMARI OMARI ROUTINE 7 [facility] ECG INC INC W/LEAST 12 LDS TRCG ONLY W/O I&R ECG 24984 OMARI GUEVARA JR ROUTINE 7 [facility] W/LEAST P 12 LDS I&R ONLY RADEX 99366 [facility] SPINE 7 MEDICAL CERVICAL IMAGING 4 OR 5 ASS VIEWS RADIOLOGI 00167 [facility] C EXAM 7 MEDICAL CHEST 2 IMAGING VIEWS ASS FRONTAL&L ATERAL BLOOD 55751 OMARI SALCIDO COUNT 7 [facility] COMPLETE INC INC AUTO&AUTO DIFRNTL WBC BASIC 32154 OMARI SALCIDO METABOLIC 7 [facility] PANEL INC INC CALCIUM TOTAL CT LOWER 40444 [facility] EXTREMITY 7 MEDICAL W/O IMAGING CONTRAST ASS MATERIAL CT PELVIS 10064 OMARI OMARI W/O 7 [facility] CONTRAST INC INC MATERIAL INJECTION J1100 ISMAEL GUEVARA JR 7 DEXAMETHO SONE SODIUM PHOSPHATE 1 MG COMPRE 90214 [place] E[facility] SIEM[facility] AUDIOMETR 6 NOSE AND CLARY Y THROAT THRESHOLD EVAL SP RECOGNIJ TYMPANOME 70546 [place] [facility] TRY 6 NOSE AND CLARY THROAT BASIC 33154 COMBINED COMBINED METABOLIC 6 PHYSICIAN PHYSICIAN PANEL S LA S LA CALCIUM TOTAL BLOOD 57218 COMBINED COMBINED COUNT 6 PHYSICIAN PHYSICIAN COMPLETE S LA S LA AUTO&AUTO DIFRNTL WBC SMR PRIM 23205 OMARI SALCIDO SRC 6 [facility] GRAM/GIEM INC INC SA STAIN BCT FUNGI/YAMILKA L CUL BACT 21329 OMARI SALCIDO XCPT 6 [facility] URINE INC INC BLOOD/[place] [address] OMARI SALCIDO SURG 6 [facility] PATHOLOGY INC INC GROSS&SAJAN ROSCOPIC EXAM CELL 47795 OMARI SALCIDO COUNT 6 [facility] MISC BODY INC INC FLUIDS W/DIFFERE NTIAL COUNT CYTP EVAL 23648 OMARI SALCIDO FINE 6 [facility] NEEDLE INC INC ASPIRATE INTERP & REPORT ARTHROCEN 53715 LORAINE SERRANO TESIS 6 MEDICAL LATRELL ASPIR&/IN IMAGING J MAJOR ASS JT/BUR[place] W/[place] [address] OMARI SALCIDO EXTREMITY 6 [facility] NON-VASC INC INC REAL-TIME IMG LMTD BIOPSY 88231 OMARI SALCIDO SOFT 6 [facility] TISSUE INC INC PELVIS&[place] [address] OMARI SALCIDO GUIDANCE 6 [facility] NEEDLE INC INC PLACEMENT IMG S&I RADEX HIP 30118 [facility] ALL 6 MEDICAL UNILATERA IMAGING L WITH ASS PELVIS 1 VIEW AMBULANCE A0428 [facility] 6 AMBULANCE AMBULANCE BLS SERVICE SERVICE NONEMERGE NCY TRANSPORT GROUND A0425 [facility] PER SERVICE SERVICE STATUTE MILE RADIOLOGI 37741 [place] ZACH C 6 MEDICAL LATRELL EXAMINATI IMAGING ON CHEST ASS SINGLE VIEW FRONTAL RADIOLOGI 26073 [place] [facility] C 6 MEDICAL ANGELIKA EXAMINATI IMAGING ON CHEST ASS SINGLE VIEW FRONTAL ECG 30302 OMARI ROGER ROUTINE 6 [facility] W/LEAST P 12 LDS I&R ONLY ANESTHESI 78223 [facility] OPEN 6 ANESTH RAMO PROCEDURE OF THE S UPPER BLUE 2/3 FEMUR NOS RADEX HIP 32647 [facility] 6 MEDICAL ANGELIKA UNILATERA IMAGING L WITH ASS PELVIS 2-3 VIEWS GROUND A0425 [facility] PER SERVICE SERVICE STATUTE MILE REPLACEME [id number] OMARI SALCIDO NT LT HIP 6 [facility] JOINT INC INC CERAMIC POLY SYNTH OPEN AMB A0427 [facility] 6 AMBULANCE AMBULANCE ALS SERVICE SERVICE EMERGENCY TRANSPORT LEVEL 1 OPTX FEM 71612 [facility] PETTEY FX PROX 6 PHYSICIAN JAM OTILIA NCK S GROUP INT FIXJ/PROS TC RPLCMT RADIOLOGI 31234 [facility] C 6 MEDICAL ANGELIKA EXAMINATI IMAGING ON FEMUR ASS MINIMUM 2 VIEWS RADIOLOGI 63304 [place] SALVADOR ALL C 6 MEDICAL EXAMINATI IMAGING ON CHEST ASS SINGLE VIEW FRONTAL ANES 79066 [facility] LOWER 6 ANESTH SHE INTESTINE OF THE BLUE ENDOSCOPY DISTAL DUODENUM INJECTION J1100 ISMAEL GEUVARA JR 6 YOJANA DWI DEXAMETHO SONE SODIUM PHOSPHATE 1 MG URNLS DIP 35429 ISMAEL ISMAEL JR 6 YOJANA DWI STICK/TAB LET RGNT NON-AUTO W/[place] [address] [facility] SALV[facility]OR ALL ABDOMEN & 6 MEDICAL PELVIS IMAGING W/O ASS CONTRAST MATERIAL RADIOLOGI 08872 [facility] EXAM 6 MEDICAL ANGELIKA CHEST 2 IMAGING VIEWS ASS FRONTAL&L ATERAL INJECTION J1030 ISMAEL GUEVARA JR 6 YOJANA DWI METHYLPRE DNISOLONE ACETATE 40 MG COLLECTIO 32949 OMARI SALCIDO N VENOUS 6 [facility] BLOOD INC INC VENIPUNCT URE BLOOD 25841 OMARI SALCIDO COUNT 6 [facility] COMPLETE INC INC AUTO&AUTO DIFRNTL WBC BASIC 80622 OMARI SALCIDO METABOLIC 6 [facility] PANEL INC INC CALCIUM TOTAL BASIC 05976 COMBINED COMBINED METABOLIC 5 PHYSICIAN PHYSICIAN PANEL S LA S LA CALCIUM TOTAL BLOOD 86304 COMBINED COMBINED COUNT 5 PHYSICIAN PHYSICIAN COMPLETE S LA S LA AUTO&AUTO DIFRNTL WBC CYANOCOBA 88905 COMBINED COMBINED JEWEL 5 PHYSICIAN PHYSICIAN VITAMIN S LA S LA B-12 ADMINISTR G0008 ISMAEL GUEVARA JR ATION OF 5 YOJANA DWI INFLUENZA VIRUS VACCINE URNLS DIP 15677 ISMAEL GUEVARA JR 5 [place] DWI STICK/TAB LET RGNT NON-AUTO W/O MICRSCP INFLUENZA Q2038 ISMAEL ISMAEL JR VACC 5 YOJANA DWI SPLIT VIRUS 3 YRS & > IM FLUZONE RADEX HIP 26301 OMARI SALCIDO 5 [facility] UNILATERA INC INC L COMPLETE MINIMUM 2 VIEWS BASIC 41418 OMARI SALCIDO METABOLIC 5 [facility] PANEL INC INC CALCIUM TOTAL RADEX HIP 55553 L[facility]INE SALVADOR ALL 5 MEDICAL UNILATERA IMAGING L 1 VIEW ASS BLOOD 37345 OMARI SALCIDO COUNT 5 [facility] COMPLETE INC INC AUTO&AUTO DIFRNTL WBC COLLECTIO 46271 OMARIBG SALCIDO N VENOUS 5 [facility] BLOOD INC INC VENIPUNCT URE GROUND A0425 NARINDER NARINDER MILEAGE 5 CO CO PER AMBULANCE AMBULANCE STATUTE TAXIN TAXIN MILE AMB A0427 NARINDER NARINDER SERVICE 5 CO CO ALS AMBULANCE AMBULANCE EMERGENCY TAXIN TAXIN TRANSPORT LEVEL 1 DAY [facility] 40966 COMBINED COMBINED METABOLIC 5 PHYSICIAN PHYSICIAN PANEL S LA S LA CALCIUM TOTAL COLLECTIO 84544 ISMAEL GUEVARA JR N VENOUS 5 YOJANA DWI BLOOD VENIPUNCT URE BLOOD 90493 COMBINED COMBINED COUNT 5 PHYSICIAN PHYSICIAN COMPLETE S LA S LA AUTO&AUTO DIFRNTL WBC DUP-SCAN 01173 LORAINE SALVADOR ALL XTR VEINS 5 MEDICAL IMAGING UNILATERA ASS L/LIMITED STUDY OBSERVATI 67384 ISMAEL GUEVARA JR ON CARE 5 YOJANA DWI DISCHARGE MANAGEMEN T SBSQ 75877 ISMAEL GUEVARA JR OBSERVATI 5 YOJANA DWI ON CARE/DAY 25 MINUTES INITIAL 90559 ISMAEL GUEVARA JR OBSERVATI 5 YO[place] DWI ON CARE/DAY 50 MINUTES RADIOLOGI 60491 LORAINE SALVADOR ALL C EXAM 5 MEDICAL CHEST 2 IMAGING VIEWS ASS FRONTAL&[place] [address] LORAINE SALVADOR ALL HEAD/BRAI 5 MEDICAL N W/O IMAGING CONTRAST ASS MATERIAL URNLS DIP 70897 COMBINED COMBINED 5 PHYSICIAN PHYSICIAN STICK/TAB S LA S LA LET REAGENT AUTO MICROSCOP Y THERAPEUT 34381 OMARI SALCIDO IC 5 [facility] PROPHYLAC INC INC TIC/DX INJECTION SUBQ/IM INJECTION J1335 OMARI SALCIDO 5 [facility] ERTAPENEM INC INC SODIUM 500 MG CULTURE 88511 OMARI SALCIDO BCT 5 [facility] ISOL&PRSM INC INC PTV ID ISOLATE EA URINE CULTURE 83560 OMARI SALCIDO BACTERIAL 5 [facility] INC INC QUANTTATI VE COLONY COUNT URINE SUSCEPTIB 30913 OMARI SALCIDO LTY STDY 5 [facility] ANTIMICRB INC INC IAL MICRO/AGA R DILUTJ INJECTION J1100 ISMAEL ISMAEL JR 5 YOJANA DWI DEXAMETHO SONE SODIUM PHOSPHATE 1 MG URNLS DIP 39460 SIMAEL ISMAEL JR 5 YOJANA DWI STICK/TAB LET RGNT NON-AUTO W/O MICRSCP BASIC 85277 OMARI SALCIDO METABOLIC 5 [facility] PANEL INC INC CALCIUM TOTAL BLOOD 62750 OMARI SALCIDO COUNT 5 [facility] HEMATOCRI INC INC T IADNA-DNA 22908 OMARI SALCIDO /RNA GI 5 [facility] PTHGN INC INC MULTIPLEX PRO[place] T[place] 11-[address] [place] [address] [facility] ABDOMEN & 5 MEDICAL LATRELL PELVIS IMAGING W/[place] [address] OMARI SALCIDO UREA 5 [facility] NITROGEN INC INC QUANTITAT RIGO COLLECTIO 97016 OMARI SALCIDO N VENOUS 5 [facility] BLOOD INC INC VENIPUNCT URE CREATININ 91147 OMARI SALCIDO E BLOOD 5 [facility] INC INC CULTURE 65021 OMARI SALCIDO BACTERIAL 5 [facility] INC INC [place]TT[place] [address] [facility] SURG 5 EMMA & ORTEGA PATHOLOGY DUBILIER GROSS&SAJAN ROSCOPIC EXAM ANES 89851 [facility] UPPER GI 5 [facility] ENDOSCOPY ANESTHESI PROXIMAL A TO DUODENUM SPECIAL 63245 [facility]IP[facility] MANUELA STAIN 5 EMMA & ORTEGA GROUP 1 DUBILIER MICROORGA NISMS I&R EGD 23751 TAOISM TAOISM TRANSORAL 5 PHYS SURG PHYS SURG BIOPSY CTR CTR SINGLE/MU LTIPLE OPHTH 54853 [place] [facility] 5 EYE ORTEGA XM&EVAL INSTITUTE COMPRHNSV ESTAB PT 1/> FUNDUS 14818 [facility] PHOTOGRAP 5 EYE [facility] HY INSTITUTE W/INTERPR ETATION & REPORT DETERMINA 19770 LORAINE WILKINS TION 5 EYE [facility] REFRACTIV INSTITUTE E STATE CULTURE 07581 OMARI SALCIDO BCT 5 [facility] ISOL&PRSM INC INC PTV ID ISOLATE EA URINE CULTURE 04715 OMARI SALCIDO BACTERIAL 5 [facility] INC INC QUANTTATI VE COLONY COUNT URINE SUSCEPTIB 61385 OMARI SALCIDO LTY STDY 5 [facility] ANTIMICRB INC INC IAL MICRO/AGA R DILUTJ URNLS DIP 97122 ISMAEL GUEVARA JR 5 YOJANA DWI STICK/TAB LET RGNT NON-AUTO W/O MICRSCP THERAPEUT 14017 ISMAEL GUEVARA JR IC 5 YOJANA DWI PROPHYLAC TIC/DX INJECTION SUBQ/IM INJECTION J1040 ISMAEL GUEVARA JR 5 YOJANA DWI METHYLPRE DNISOLONE ACETATE 80 MG IAADI 12520 OMARI SALCIDO INFFLUENZ 5 [facility] A A VIRUS INC INC IAADI 32089 OMARI SALCIDO INFLUENZA 5 [facility] B VIRUS INC INC CULTURE 60731 OMARI SALCIDO BACTERIAL 5 [facility] BLOOD INC INC AEROBIC W/ID ISOLATES BLOOD 17585 OMARI SALCIDO COUNT 5 [facility] COMPLETE INC INC AUTO&AUTO DIFRNTL WBC INJECTION J2405 OMARI SALCIDO 5 [facility] ONDANSETR INC INC ON HCL PER 1 MG THER 41830 OMARI SALCIDO PROPH/DX 5 [facility] NJX IV INC INC PUSH SINGLE/1S T SBST/DRUG COMPREHEN 63740 OMARI SALCIDO SIVE 5 [facility] METABOLIC INC INC PANEL URNLS DIP 90974 OMARI SALCIDO 5 [facility] STICK/TAB INC INC LET REAGENT AUTO MICROSCOP Y RADIOLOGI 82145 [place] [facility] [place] 5 MEDICAL LATRELL EXAMINATI IMAGING ON CHEST ASS SINGLE VIEW FRONTAL URNLS DIP 75700 ISMAEL ISMAEL JR 5 YOJANA DWI STICK/TAB LET RGNT NON-AUTO W/O MICRSCP CULTURE 77479 OMARI SALCIDO BACTERIAL 5 [facility] INC INC QUANTTATI VE COLONY COUNT URINE INJECTION J1100 ISMAEL ISMAEL 4 YOJANA YOJANA DEXAMETHO SONE SODIUM PHOSPHATE 1 MG THERAPEUT 16308 ISMAEL GUEVARA JR IC 4 YOJANA DWI PROPHYLAC TIC/DX INJECTION SUBQ/IM THERAPEUT 77039 ISMAEL ISMAEL JR IC 4 YOJANA DWI PROPHYLAC TIC/DX INJECTION SUBQ/IM INJECTION J1030 ISMAEL GUEVARA JR 4 YOJANA DWI METHYLPRE DNISOLONE ACETATE 40 MG ECHO 07352 OMARI SALCIDO TTHRC R-T 4 [facility] 2D INC INC W/WOM-MOD E COMPL SPEC&COLR D INJECTION J1100 ISMAEL GUEVARA JR 4 YOJANA DWI DEXAMETHO SONE SODIUM PHOSPHATE 1 MG THERAPEUT 66735 ISMAEL GUEVARA JR IC 4 YOJANA DWI PROPHYLAC TIC/DX INJECTION SUBQ/IM URNLS DIP 34940 ISMAEL GUEVARA JR 4 YOJANA DWI STICK/TAB LET RGNT NON-AUTO W/O MICRSCP CV STRS 43747 OMARI GUEVARA JR TST 4 [facility] XERS&/OR HOSPITAL RX CONT P ECG I&R ONLY MYOCARDIA 65666 OMARI [place] SPECT 4 [facility] MULTIPLE INC INC STUDIES TECHNETIU A9500 OMARI Hernandez TC-99M 4 [facility] SESTAMIBI INC INC DX PER STUDY DOSE CV STRS 91915 OMARI SALCIDO TST 4 [facility] XERS&/OR INC INC RX CONT ECG TRCG ONLY INJECTION J2785 OMARI SALCIDO 4 [facility] REGADENOS INC INC ON 0.1 MG BLOOD 76773 OMARI SALCIDO COUNT 4 [facility] COMPLETE INC INC AUTO&AUTO DIFRNTL WBC CREATINE 48588 OMARI SALCIDO KINASE 4 [facility] [place] [address] OMARI OMARI TROPONIN 4 [facility] QUANTITAT INC INC RIGO ECG 18624 OMARI GUEVARA JR ROUTINE [address] [facility] W/LEAST P 12 LDS I&[place] [address] OMARI OMARI THYROID 4 [facility] STIMULATI INC INC NG HORMONE TSH CREATINE 67726 OMARI OMARI KINASE MB 4 [facility] FRACTION INC INC ONLY ECG 14414 OMARI SALCIDO ROUTINE 4 [facility] ECG INC INC W/LEAST 12 LDS TRCG ONLY W/O I&R RADIOLOGI 21190 [facility] [place] [place] 4 [facility]LL EXAMINATI IMAGING ON CHEST ASS SINGLE VIEW FRONTAL COMPREHEN 36810 OMARI OMARI SIVE 4 [facility] METABOLIC INC INC PANEL ARTHROCEN 12958 ISMAEL GUEVARA TESIS 4 YOJANA YOJANA ASPIR&/IN J INTERM JT/BURS W/O US INFLUENZA Q2038 ISMAEL GUEVARA JR VACC 4 YOJANA DWI SPLIT VIRUS 3 YRS & > IM FLUZONE INJECTION J1040 ISMAEL GUEVARA JR 4 YOJANA DWI METHYLPRE DNISOLONE ACETATE [address] IN[address] 4 JESSE MOLINA HYDROMORP PARTHA PARTHA ASAEL UP TO [address] SHOULDER 4 JESSE MOLINA COMPLETE PARTHA PARTHA MINIMUM [address] IC 4 JESSE MOLINA PROPHYLAC PARTHA PARTHA TIC/DX INJECTION SUBQ/IM INJECTION J2405 [facility] 4 JESSE MOLINA ONDANSETR PARTHA PARTHA ON HCL PER 1 MG BASIC 77724 COMBINED COMBINED METABOLIC 4 PHYSICIAN PHYSICIAN PANEL S LA S LA CALCIUM TOTAL COLLECTIO 52127 ISMAEL GUEVARA JR N VENOUS 4 YOJANA DWI BLOOD VENIPUNCT URE COLLECTIO 73113 ISMAEL GUEVARA JR N VENOUS 4 YOJANA DWI BLOOD VENIPUNCT URE CREATINE 85334 OMARI SALCIDO KINASE 4 [facility] TOTAL INC INC BLOOD 18001 OMARI SALCIDO COUNT 4 [facility] COMPLETE INC INC AUTO&AUTO DIFRNTL WBC BASIC 79111 OMARI SALCIDO METABOLIC 4 [facility] PANEL INC INC CALCIUM TOTAL URNLS DIP 47275 ISMAEL GUEVARA JR 4 YOJANA DWI STICK/TAB LET RGNT NON-AUTO W/O MICRSCP URNLS DIP 08493 ISMAEL GUEVARA JR 4 YOJANA DWI STICK/TAB LET RGNT NON-AUTO W/O MICRSCP RADEX 49625 OMARI SALCIDO SPINE 4 [facility] LUMBOSACR INC INC AL MINIMUM 4 VIEWS URNLS DIP 89513 ISMAEL GUEVARA JR 4 YOJANA DWI STICK/TAB LET RGNT NON-AUTO W/O MICRSCP THERAPEUT 00922 ISMAEL GUEVARA JR IC 4 YOJANA DWI PROPHYLAC TIC/DX INJECTION SUBQ/IM INJECTION J1040 ISMAEL GUEVARA JR 4 [place]JANA DWI METHYLPRE DNISOLONE ACETATE 80 MG CULTURE 58911 OMARI SALCIDO BACTERIAL 4 [facility] INC INC QUANTTATI VE COLONY COUNT URINE COLLECTIO 87652 ISMAEL GUEVARA JR N VENOUS 4 YOJANA DWI BLOOD VENIPUNCT URE BLOOD 93131 COMBINED COMBINED COUNT 4 PHYSICIAN PHYSICIAN COMPLETE S LA S LA AUTO&AUTO DIFRNTL WBC BASIC 63939 COMBINED COMBINED METABOLIC 4 PHYSICIAN PHYSICIAN PANEL S LA S LA CALCIUM TOTAL OBSERVATI 80150 ISMAEL GUEVARA JR ON CARE 4 YOJANA DWI DISCHARGE MANAGEMEN T SBSQ 94225 ISMAEL GUEVARA JR OBSERVATI 4 [place] DWI ON CARE/DAY 25 MINUTES ECG 27349 OMARI GUEVARA JR ROUTINE 4 [facility] ECG HOSPITAL W/LEAST P 12 LDS I&R ONLY ECG 84282 [facility] ROUTINE 4 [facility] ECG EMERGENCY W/LEAST PHYS 12 LDS I&R ONLY ECHO 69708 MERRY MARTINEZ TTHRC R-T 4 MEDICAL EMELI 2D SERV W/WOM-MOD FOUNDATIO E COMPL SPEC&COLR D GROUND A0425 MICHEL PEARSON MILEAGE 4 AMBULANCE AMBULANCE PER SERVICE SERVICE STATUTE MILE AMB A0427 MICHEL PEARSON SERVICE 4 AMBULANCE AMBULANCE ALS SERVICE SERVICE EMERGENCY TRANSPORT LEVEL 1 INITIAL 61654 ISMAEL GUEVARA JR OBSERVATI 4 [place] DWI ON CARE/DAY 50 MINUTES URNLS DIP 45995 ISMAEL GUEVARA JR 4 [place] DWI STICK/TAB LET RGNT NON-AUTO W/O MICRSCP TECHNETIU A9567 OMARI Hernandez TC-99M 4 [facility] PENTETATE INC INC DX AEROSOL TO 75 MCI ECG 82662 OMARI SALCIDO ROUTINE 4 [facility] ECG INC INC W/LEAST 12 LDS TRCG ONLY W/O I&R TECHNETIU A9540 OMARI Hernandez TC-99M 4 [facility] MAA DX INC INC STDY DOSE UP TO 10 MCI BASIC 97638 OMARI SALCIDO METABOLIC 4 [facility] PANEL INC INC CALCIUM TOTAL PULMONARY 42423 [place] ZACH 4 [facility] VENTILATI IMAGING ON & ASS PERFUSION IMAGING RADEX 55378 [place] [facility] FOOT 4 [facility] COMPLETE IMAGING MINIMUM 3 ASS VIEWS ECG 32655 OMARI GUEVARA JR ROUTINE [address] [facility] W/LEAST P 12 LDS I&R ONLY CREATINE 76809 OMARI SALCIDO KINASE MB 4 [facility] FRACTION INC INC ONLY COLLECTIO 82579 OMARI Lee VENOUS 4 [facility] BLOOD INC INC VENIPUNCT URE RADIOLOGI 90567 [place] [facility] C EXAM 4 [facility] CHEST 2 IMAGING VIEWS ASS FRONTAL&[place] [address] OMARI SALCIDO TROPONIN 4 [facility] QUANTITAT INC INC RIGO CREATINE 48871 OMARI SALCIDO KINASE 4 [facility] TOTAL INC INC FIBRIN 19570 OMARI SALCIDO DGRADJ 4 [facility] PRODUCTS INC INC D-DIMER QUAL/[place] [address] OMARI SALCIDO LIPASE 4 [facility] INC INC BLOOD 09794 OMARI OMARI COUNT 4 [facility] COMPLETE INC INC AUTO&AUTO DIFRNTL WBC RADIOLOGI 47907 LORAINE SERRANO Fredrick EXAM 4 [facility] CHEST 2 IMAGING VIEWS ASS FRONTAL&L ATERAL URNLS DIP 53630 OMARI SALCIDO 4 [facility] STICK/TAB INC INC LET REAGENT AUTO MICROSCOP Y COMPREHEN 49748 OMARIBG SALCIDO SIVE 4 [facility] METABOLIC INC INC PANEL URNLS DIP 84666 OMARI SALCIDO 4 [facility] STICK/TAB INC INC LET REAGENT AUTO MICROSCOP Y IAADI 69607 OMARI OMARI INFLUENZA 4 [facility] B VIRUS INC INC IAADI 53446 OMARI SALCIDO INFFLUENZ 4 [facility] A A VIRUS INC INC STANDARD K0001 MICHELLE HERNANDEZCHAI 4 [facility] EQUIPME EQUIPME STANDARD K0001 MICHELLE PIMENTELI 4 HOME HOME [facility] MEDICAL MEDICAL EQUIPME EQUIPME CULTURE 91605 OMARI SALCIDO BACTERIAL 4 [facility] INC INC QUANTTATI VE COLONY COUNT URINE STANDARD K0001 MICHELLE PIMENTELI 3 HOME HOME R MEDICAL MEDICAL EQUIPME EQUIPME SEDIMENTA 45022 OMARIBG SALCIDO TION RATE 3 [facility] RBC INC INC NON-AUTOM ATED BLOOD 68803 OMARI SALCIDO COUNT 3 [facility] COMPLETE INC INC AUTO&AUTO DIFRNTL WBC STANDARD K0001 MICHELLE HERNANDEZCHAI 3 HOME HOME R MEDICAL MEDICAL EQUIPME EQUIPME STANDARD K0001 MICHELLE HERNANDEZCHAI 3 HOME HOME R MEDICAL MEDICAL EQUIPME EQUIPME STANDARD K0001 MICHELLE PIMENTELI 3 HOME HOME R MEDICAL MEDICAL EQUIPME EQUIPME THERAPEUT 06245 ISMAEL GUEVARA JR IC 3 YOJANA DWI PROPHYLAC TIC/DX INJECTION SUBQ/IM URNLS DIP 51318 ISMAEL GUEVARA JR 3 YOJANA DWI STICK/TAB LET RGNT NON-AUTO W/O MICRSCP CULTURE 59548 OMARI SALCIDO BACTERIAL 3 [facility] INC INC QUANTTATI VE COLONY COUNT URINE INJECTION J1100 ISMAEL ISMAEL JR 3 YOJANA DWI DEXAMETHO SONE SODIUM PHOSPHATE 1 MG STANDARD K0001 MICHELLE PIMENTELI 3 HOME HOME R MEDICAL MEDICAL EQUIPME EQUIPME OPHTH 21721 [place] [facility]ICAL 3 E[facility] XM&EVAL INSTITUTE COMPRE NEW PT 1/> VST DETERMINA 53706 [place] CLAUDETTE TION 3 [facility] REFRACTIV INSTITUTE E STATE STANDARD K0001 MICHELLE PIMENTELI 3 HOME HOME R MEDICAL MEDICAL EQUIPME EQUIPME RADEX 94860 [facility] SPINE 3 [place] CERVICAL ORTHOPAED 2 OR 3 [facility] VIEWS RADEX 16404 [facility] TRA SPINE 3 [place] THORACIC ORTHOPAED 2 [facility]IEWS [facility]CS PLC COLLECTIO 59686 [facility] N VENOUS 3 CLINIC CLINIC BLOOD LABORAT[place] [address] [facility] BLOOD/URI 3 CLINIC CLINIC C ACID LABORATO LABORATO BLOOD 88601 [facility] COUNT 3 [facility] COMPLETE LABORATO LABORATO AUTO&AUTO DIFRNTL WBC LACTATE 24574 [facility] DEHYDROGE 3 CLINIC CLINIC NASE LDH LABORATO LABORATO COMPREHEN 83488 [facility] SIVE 3 [facility] CLINIC METABOLIC LABORATO LABORATO PANEL STANDARD K0001 MICHELLE PIMENTELI 3 HOME HOME R MEDICAL MEDICAL EQUIPME EQUIPME INJECTION J1040 ARAMBULA ARAMBULA 3 DON DON METHYLPRE DNISOLONE ACETATE 80 MG STANDARD K0001 MICHELLE PIMENTELI 3 HOME HOME R MEDICAL MEDICAL EQUIPME EQUIPME OPHTH 39529 [facility] 3 MEDICAL JR ORTEGA XM&EVAL SERV COMPRHNSV FOUNDATIO ESTAB PT 1/> STANDARD K0001 MICHELLE PIMENTELI 3 HOME HOME R MEDICAL MEDICAL EQUIP[facility] 18388 EMILY ANDREA DISCHARGE 3 EMERGENCY RAE IGN DAY SERVICES MANAGEMEN T 30 MIN/< SBSQ 65477 [facility] 3 EMERGENCY RAE IGN CARE/DAY SERVICES 25 MINUTES ANESTHESI 89415 LORAINE HUNTER A PERQ 3 ANESTHESI [place] IMAGE A GROUP GUIDED PS SPINE THERAPEUT IC RADIOLOGI 52563 [facility] [place] [facility] MAT C 3 RADIOLOGY EXAMINATI ON CHEST SINGLE VIEW FRONTAL INITIAL 35332 [facility] 3 N CARE/DAY CARDIOLOG 30 Y MINUTES MRI 65696 [facility] [place] [facility] MAT SPINAL 3 RADIOLOGY CANAL THORACIC W/O CONTRAST MATRL MRI 12091 [facility] [place] [facility] MAT SPINAL 3 RADIOLOGY CANAL LUMBAR W/O CONTRAST MATERIAL MRI 52264 [facility] SPINAL 3 MEDICAL [facility]LL CANAL IMAGING LUMBAR ASS W/O CONTRAST MATERIAL 3D 80914 LORAINE ZACH RENDERING 3 MEDICAL LATRELL IMAGING W/INTERP& ASS POSTPROC DIFF WORK STATION INITIAL 64459 [facility] 3 EMERGENCY JANET CARE/DAY SERVICES [address] LUMBAR 45299 OMARI SALCIDO SPINE 3 [facility] W/O INC INC CONTRAST MATERIAL RADIOLOGI 03435 OMARI SALCIDO C 3 [facility] EXAMINATI INC INC ON PELVIS 1/[address] [place] [address] OMARI SALCIDO HEAD/BRAI 3 [facility] N W/O INC INC CONTRAST MATERIAL THERAPEUT 56607 OMARI SALCIDO IC 3 [facility] PROPHYLAC INC INC TIC/DX INJECTION SUBQ/IM AMBULANCE A0429 [facility] SERVICE 3 AMBULANCE AMBULANCE BLS SERVICE SERVICE EMERGENCY TRANSPORT 3D 97406 OMARI SALCIDO RENDERING 3 [facility] W/INTERP INC INC & POSTPROCE SS SUPERVISI ON 3D 27128 OMARI SALCIDO RENDERING 3 [facility] INC INC W/INTERP& POSTPROC DIFF WORK STATION GROUND [facility]0425 [facility] PER SERVICE SERVICE STATUTE MILE RADIOLOGI 27030 OMARI SALCIDO C 3 [facility] EXAMINATI INC [place] [address] OMARI SALCIDO CERVICAL 3 [facility] SPINE W/O INC INC CONTRAST MATERIAL RADEX 07002 OMARI JESSICA ORTEGA SPINE 3 [facility] HOS[facility] LUMBOSACR INC AL MINIMUM 4 VIEWS INJECTION J1040 TYESHA ARAMBULA 3 DON DON METHYLPRE DNISOLONE ACETATE 80 MG STANDARD K0001 MICHELLE MAXWELL 3 HOME HOME R MEDICAL MEDICAL EQUIPME EQUIPME URNLS DIP 39109 OMARI SALCIDO 3 [facility] STICK/TAB INC INC LET REAGENT AUTO MICROSCOP Y COMPREHEN 09296 OMARI SALCIDO SIVE 3 [facility] METABOLIC INC INC PANEL BLOOD 12091 OMARI SALCIDO COUNT 3 [facility] COMPLETE INC INC AUTO&AUTO DIFRNTL WBC COLLECTIO 83357 OMARI SALCIDO N VENOUS 3 [facility] BLOOD INC INC VENIPUNCT URE RADIOLOGI 46857 TYESHA Alcala 3 DON DON EXAMINATI ON KNEE 1/2 VIEWS STANDARD K0001 MICHELLE MAXWELL 3 HOME HOME R MEDICAL MEDICAL EQUIPME EQUIPME URS DIP 33459 TYESHA ARZATES 3 DON DON STICK/TAB LET RGNT NON-AUTO W/O MICRSCP CULTURE 46038 OMARIBG CALLEON BCT 3 [facility] ISOL&PRSM INC INC PTV ID ISOLATE EA URINE SUSCEPTIB 44498 OMARI SALCIDO LTY STDY 3 [facility] ANTIMICRB INC INC IAL MICRO/AGA R DILUTJ CULTURE 37974 OMARI CALLEON BACTERIAL 3 [facility] INC INC QUANTTATI VE COLONY COUNT URINE OPHTH 93326 [facility] [address] [facility] XM&EVAL SERV COMPRHNSV FOUNDATIO ESTAB PT 1/> CUL BACT 47761 OMARI SALCIDO XCPT 3 [facility] URINE INC INC BLOOD/[place] [address] OMARI SALCIDO INFUSION 3 [facility] THERAPY/P INC INC ROPHYLAXI S /DX 1ST TO 1 [place] [address] OMARI SALCIDO INFUSION 3 [facility] THERAPY/P INC INC ROPHYLAXI S /DX 1ST TO 1 [place] [address] OMARI SALCIDO INFUSION 3 [facility] THERAPY/P INC INC ROPHYLAXI S /DX 1ST TO 1 HR DRUG 09233 OMARI SALCIDO SCREEN 3 [facility] QUANTITAT INC INC RIGO GENTAMICI N DRUG 75681 OMARI SALCIDO SCREEN 3 [facility] QUANTITAT INC INC RIGO GENTAMICI N COLLECTIO 81420 OMARI SALCIDO N VENOUS 3 [facility] [place] [address] OMARI SALCIDO INFUSION 3 [facility] THERAPY/P INC INC ROPHYLAXI S /DX 1ST TO 1 HR COLLECTIO 96582 OMARI SALCIDO N VENOUS 3 [facility] BLOOD INC INC VENIPUNCT URE DRUG 39533 OMARI SALCIDO SCREEN 3 [facility] QUANTITAT INC INC RIGO GENTAMICI N DRUG 84288 OMARI SALCIDO SCREEN 3 [facility] QUANTITAT INC INC RIGO GENTAMICI N COLLECTIO 90069 OMARI SALCIDO N VENOUS 3 [facility] [place]LO[place] [address] OMARI SALCIDO UREA 3 [facility] [place] [address] OMARI SALCIDO INFUSION 3 [facility] THERAPY/P INC INC ROPHYLAXI S /DX 1ST TO 1 HR CREATININ 97460 OMARI SALCIDO E BLOOD 3 [facility] INC INC BASIC 44123 OMARI SALCIDO METABOLIC 3 [facility] PANEL INC INC CALCIUM TOTAL SUSCEPTIB 03892 OMARI SALCIDO LTY STDY 3 [facility] ANTIMICRB INC INC IAL MICRO/AGA R DILUTJ CUL BACT 83527 OMARI SALCIDO AEROBIC 3 [facility] ADDL INC INC METHS DEFINITIV E EA ISOL CUL BACT 40174 OMARI SALCIDO XCPT 3 MEM HOS[facility] MEM [...] DON METHYLPRE DNISOLONE ACETATE 80 MG REMOVAL 20982 TYESHA ARAMBULA IMPACTED 2 DON DON CERUMEN INSTRUMEN TATION UNILAT INJECTION J3420 TYESHA ARAMBULA VIT B-12 2 DON DON CYANOCOBA JEWEL TO 1000 MCG INJ J0702 TYESHA ARAMBULA BETAMETHA 2 DON DON SONE ACETATE & PHOSPHATE 3 MG ECG 18430 TYESHA ARAMBULA ROUTINE 2 DON DON ECG W/LEAST 12 LDS W/I&R ECG 15148 TYESHA ARAMBULA ROUTINE 2 DON DON ECG W/LEAST 12 LDS W/I&R RADEX ABD 03585 TYESHA ARAMBULA COMPL 2 DON DON AQT ABD W/S/E/D VIEWS 1 VIEW URNLS DIP 90659 TYESHA ARAMBULA 2 DON DON STICK/TAB LET RGNT NON-AUTO W/O MICRSCP INJECTION J1040 TYESHA ARAMBULA 2 DON DON METHYLPRE DNISOLONE ACETATE 80 MG BLOOD 90643 OMARI SALCIDO COUNT 2 [facility] COMPLETE INC INC AUTO&AUTO DIFRNTL WBC CREATINE 63484 OMARI SALCIDO KINASE 2 [facility] TOTAL INC INC NATRIURET 11301 OMARI SALCIDO IC 2 [facility] [place] [address] OMARI SALCIDO TROPONIN 2 [facility] QUANTITAT INC INC RIGO ECG 26580 EMILY STARK ROUTINE 2 EMERGENCY SAJAN ECG SERVICES W/LEAST 12 LDS I&R ONLY INJECTION J2405 OMARI SALCIDO 2 [facility] ONDANSETR INC INC ON HCL PER 1 MG RADIOLOGI 97066 OMARI SALCIDO C 2 [facility] EXAMINATI INC INC ON CHEST SINGLE VIEW FRONTAL CREATINE 43181 OMARI OMARI KINASE MB 2 [facility] FRACTION INC INC ONLY ECG 68930 OMARI OMARI ROUTINE 2 [facility] ECG INC INC W/LEAST 12 LDS TRCG ONLY W/O I&R THER 64717 OMARI OMARI PROPH/DX 2 [facility] NJX IV INC INC PUSH SINGLE/1S T SBST/DRUG COMPREHEN 18769 OMARI OMARI SIVE 2 [facility] METABOLIC INC INC PANEL URNLS DIP 56061 OMARI CALLEON 2 [facility] STICK/TAB INC INC LET REAGENT AUTO MICROSCOP Y COMPREHEN 37826 OMARI OMARI SIVE 2 [facility] METABOLIC INC INC PANEL COLLECTIO 02631 OMARI SALCIDO N VENOUS 2 [facility] BLOOD INC INC VENIPUNCT URE INJECTION J3420 TYESHA ARZATES VIT B-12 2 DON DON CYANOCOBA JEWEL TO 1000 MCG INJECTION J1040 TYESHA ARAMBULA 2 DON DON METHYLPRE DNISOLONE ACETATE 80 MG TYMPANOME 44434 TYESHA ARZATES TRY 2 DON DON COMPREHEN 69282 OMARI OMARI SIVE 2 [facility] METABOLIC INC INC PANEL LIPID 65739 OMARI SALCIDO PANEL 2 [facility] INC INC BLOOD 08256 OMARI SALCIDO COUNT 2 [facility] COMPLETE INC INC AUTO&AUTO DIFRNTL WBC COLLECTIO 34708 OMARI SALCIDO N VENOUS 2 [facility] [place] [address] OMARI SALCIDO THYROID 2 [facility] STIMULATI INC INC NG HORMONE TSH OPHTH 17064 MERRY LIANG MEDICAL 2 MEDICAL ORTEGA XM&EVAL SERV COMPRHNSV FOUNDATIO ESTAB PT 1/> COMPUTERI 64679 MERRY LIANG ZED 2 MEDICAL ORTEGA OPHTHALMI SERV C IMAGING FOUNDATIO RETINA US PELVIC 60192 LORAINE SERRANO 2 MEDICAL LATRELL NONOBSTET IMAGING [place] [address] OMARI SALCIDO TRANSVAGI 2 [facility] NAL INC INC URNLS DIP 78444 TYESHA ARAMBULA 2 DON DON STICK/TAB LET RGNT NON-AUTO W/O MICRSCP INJECTION J3420 ARAMBULA ARAMBULA VIT B-12 2 DON DON CYANOCOBA JEWEL TO 1000 MCG INJECTION J1040 TYESHA ARAMBULA 2 DON DON METHYLPRE DNISOLONE ACETATE 80 MG URNLS DIP 91012 TYESHA ARAMBULA 2 DON DON STICK/TAB LET RGNT NON-AUTO W/O MICRSCP INJECTION J3420 TYESHA ARZATES VIT B-12 1 DON DON CYANOCOBA JEWEL TO 1000 MCG ADMINISTR G0008 ARAMBULA ARAMBULA ATION OF 1 DON DON INFLUENZA VIRUS VACCINE INFLUENZA Q2037 ARAMBULA ARAMBULA VACC 1 DON DON SPLIT VIRUS 3 YRS & > IM FLUVIRIN URNLS DIP 90330 TYESHA JAMESONHENS 1 DON DON STICK/TAB LET RGNT NON-AUTO W/O MICRSCP INJECTION J1040 TYESHA ARZATES 1 DON DON METHYLPRE DNISOLONE ACETATE 80 MG INJECTION J3420 TYESHA ARZATES VIT B-12 1 DON DON CYANOCOBA JEWEL TO 1000 MCG URNLS DIP 67942 TYESHA ARAMBULA 1 DON DON STICK/TAB LET RGNT NON-AUTO W/O MICRSCP URNLS DIP 66987 TYESHA ARZATES 1 DON DON STICK/TAB LET RGNT NON-AUTO W/O MICRSCP CULTURE 09618 OMARI SALCIDO BACTERIAL 1 [facility] INC INC QUANTTATI VE COLONY COUNT URINE URNLS DIP 28351 ARAMBULA ARAMBULA 1 DON DON STICK/TAB LET RGNT NON-AUTO W/O MICRSCP URNLS DIP 77857 [place] [facility] LET RGNT PSC NON-AUTO W/O MICRSCP URNLS DIP 77879 TYESHA ARZATES 1 DON DON STICK/TAB LET RGNT NON-AUTO W/O MICRSCP INJECTION J3420 TYESHA ARAMBULA VIT B-12 1 DON DON CYANOCOBA JEWEL TO 1000 MCG INJ J0702 TYESHA ARZATES BETAMETHA 1 DON DON SONE ACETATE & PHOSPHATE [address] THORAX 03648 [place] [facility] W/O 1 MEDICAL [place] [address] OMARI SALCIDO ABDOMEN & 1 [facility] PELVIS INC INC W/CONTRAS T MATERIAL 3D 59663 OMARI SALCIDO RENDERING 1 [facility] INC INC W/INTERP& POSTPROC DIFF WORK STATION CT THORAX 67142 OMARI SALCIDO 1 [facility] W/CONTRAS INC INC T MATERIAL COMPREHEN 62410 [facility] SIVE 1 CLINIC CLINIC METABOLIC LABORATO LABORATO PANEL COLLECTIO 25512 [facility] N VENOUS 1 CLINIC CLINIC BLOOD LABORAT[place] [address] [facility] BLOOD/URI 1 CLINIC CLINIC C ACID LABORATO LABORATO BLOOD 06452 [facility] COUNT 1 CLINIC CLINIC COMPLETE LABORATO LABORATO AUTO&AUTO DIFRNTL WBC LACTATE 61316 [facility] DEHYDROGE 1 CLINIC CLINIC NASE LDH LABORATO LABORATO INJECTION J3420 TYESHA ARZATES VIT B-12 1 DON DON CYANOCOBA JEWEL TO 1000 MCG INJECTION J1040 ARAMBULA ARAMBULA 1 DON DON METHYLPRE DNISOLONE ACETATE 80 MG INJECTION J0690 ARAMBULA ARAMBULA 1 DON DON CEFAZOLIN SODIUM 500 MG URNLS DIP 47954 OMARI JEAN-BAPTISTE JR 1 [facility] LET RGNT P NON-AUTO W/O MICRSCP INJECTION J1040 ARAMBULAKRISS ARZATES 1 DON DON METHYLPRE DNISOLONE ACETATE 80 MG BLOOD 18612 OMARI SALCIDO COUNT 1 [facility] COMPLETE INC INC AUTO&AUTO DIFRNTL WBC COLLECTIO 24705 OMARI OMARI N VENOUS 1 [facility] [place]LO[place] [address] OMARI SALCIDO THYROID 1 [facility] STIMULATI INC INC NG HORMONE TSH COMPREHEN 44108 OMARI SALCIDO SIVE 1 [facility] METABOLIC INC INC PANEL LIPID 74063 OMARI SALCIDO PANEL 1 [facility] INC INC INJECTION J1040 ARAMBULAKRISS ARZATES 1 DON DON METHYLPRE DNISOLONE ACETATE 80 MG INJECTION J1040 ARAMBULAKRISS ARZATES 0 DON DON METHYLPRE DNISOLONE ACETATE 80 MG SIMPLE 66385 EMILY STARK RPR 0 EMERGENCY SAJAN SCALP/NEC SERVICES K/AX/KIRSTIE T/TRUNK 7.6-12.5C M GROUND A0425 [facility] MILEAGE 0 AMBULANCE AMBULANCE PER SERVICE SERVICE STATUTE MILE AMBULANCE A0429 [facility] SERVICE 0 AMBULANCE AMBULANCE BLS SERVICE [place] [address] OMARI SALCIDO CLOSTRIDI 0 [facility] UM INC INC DIFFICILE TOXIN URNLS DIP 50997 TYESHA ARZATES 0 DON DON STICK/TAB LET RGNT NON-AUTO W/O MICRSCP OPHTH 53691 [facility] 0 MEDICAL [facility]TE[facility] XM&EVAL SERV COMPRHNSV FOUNDATIO ESTAB PT 1/> INJECTION J1040 TYESHA JAMESONHENS 0 DON DON METHYLPRE DNISOLONE ACETATE 80 MG ADMINISTR G0008 TYESHA ARAMBULA ATION OF 0 DON DON INFLUENZA VIRUS VACCINE IIV3 36355 TYESHA ARAMBULA VACCINE 0 DON DON SPLIT VIRUS 0.5 ML DOSAGE IM USE INJECTION J1040 TYESHA JAMESONHENS 0 DON DON METHYLPRE DNISOLONE ACETATE 80 MG INJECTION J3420 TYESHA ARAMBULA VIT B-12 0 DON DON CYANOCOBA JEWEL TO 1000 MCG URNLS DIP 10318 ARAMBULA ARAMBULA 0 DON DON STICK/TAB LET RGNT NON-AUTO W/O MICRSCP URNLS DIP 53386 ARAMBULA ARAMBULA 0 DON DON STICK/TAB LET RGNT NON-AUTO W/O MICRSCP URNLS DIP 03859 TYESHA ARAMBULA, 0 DON R DON R STICK/TAB LET RGNT NON-AUTO W/O MICRSCP INJECTION J1040 TYESHA ARAMBULA, 0 DON R DON R METHYLPRE DNISOLONE ACETATE 80 MG THERAPEUT 06817 OMARI CALLEON IC 0 [facility] PROPHYLAC INC INC TIC/DX INJECTION SUBQ/IM URNLS DIP 27634 TYESHA ARAMBULA, 0 DON R DON R STICK/TAB LET RGNT NON-AUTO W/O MICRSCP INJECTION J1040 TYESHA ARAMBULA, 0 DON R DON R METHYLPRE DNISOLONE ACETATE [address] [place] [address] [facility] BLOOD/URI 0 CLINIC CLINIC C ACID LABORATOR LABORATOR Y Y BLOOD 08695 [facility] COUNT 0 CLINIC CLINIC COMPLETE LABORATOR LABORATOR AUTO&AUTO Y Y DIFRNTL WBC LACTATE 32651 [facility] DEHYDROGE 0 CLINIC CLINIC NASE LDH LABORATOR LABORATOR Y Y COLLECTIO 63372 [facility] N VENOUS 0 CLINIC CLINIC BLOOD LABORATOR LABORATOR VENIPUNCT Y Y URE COMPREHEN 28997 [facility] SIVE 0 CLINIC CLINIC METABOLIC LABORATOR LABORATOR PANEL Y Y INJECTION J3420 TYESHA ARAMBULA, VIT B-12 0 DON R DON R CYANOCOBA JEWEL TO 1000 [facility] RADIOLOGI 25440 Fredrick LYNNE EXAM 0 [facility] CHEST 2 IMAGING VIEWS ASSOCIATE FRONTAL&L S ATERAL THERAPEUT 82793 [facility] CALLEON IC 0 [facility] PROPHYLAC INC INC TIC/DX INJECTION SUBQ/IM INJECTION J1040 TYESHA ARAMBULA, 0 DON R DON R METHYLPRE DNISOLONE [place] [address] [place] [address] [facility] SALCIDO HEAD/BRAI 0 [facility] N W/O & INC INC W/CONTRAS T MATERIAL CREATININ 51517 [facility] SALCIDO E BLOOD 0 [facility] INC INC COLLECTIO 27236 [facility] SALCIDO N VENOUS 0 [facility] [place] [address] [facility] SALCIDO UREA 0 [facility] NITROGEN INC INC QUANTITAT RIGO 3D 41006 [facility] SALCIDO RENDERING 0 [facility] W/INTERP INC INC & POSTPROCE SS SUPERVISI ON RADEX HIP 73562 [place] [facility], 0 [facility] IMAGING L ASSOCIATE COMPLETE S MINIMUM 2 VIEWS RADIOLOGI 46547 [place] [facility] C 0 MEDICAL DEAN EXAMINATI IMAGING ON PELVIS ASSOCIATE 1/2 S VIEWS BLOOD 66791 TYESHA ARAMBULA, OCCULT 0 DON R DON R PEROXIDAS E ACTV QUAL FECES 1 DETER URNLS DIP 13306 TYESHA ARAMBULA, 0 DON R DON R STICK/TAB LET RGNT NON-AUTO W/O MICRSCP INJ J0702 TYESHA ARAMBULA, BETAMETHA 0 DON R DON R SONE ACETATE & PHOSPHATE 3 [place] [address] OMARI SALCIDO UREA 9 [facility] NITROGEN INC INC QUANTITAT RIGO COLLECTIO 38292 OMARI SALCIDO N VENOUS 9 [facility] BLOOD INC INC VENIPUNCT URE CREATININ 86015 [facility] SALCIDO E BLOOD 9 [facility] INC INC 3D 75747 O[facility]I SALCIDO RENDERING 9 [facility] INC INC W/INTERP& POSTPROC DIFF WORK STATION CT THORAX 96858 O[facility]I SALCIDO 9 [facility] W/CONTRAS INC INC T MATERIAL SBSQ 55186 TYESHA ARAMBULA, NURSING 9 DON R DON R FACILITY CARE/DAY E/M STABLE 10 MIN [facility]OSPITAL [address] [facility] 9 DON R DON R DAY MANAGEMEN T 30 MIN/< SBSQ 13167 [place] [address] DON R DON R CARE/DAY 25 MINUTES SBSQ [address]4414 [place] [address] DON R DON R CARE/DAY 25 MINUTES SBSQ 92184 [place] [address] DON R DON R CARE/DAY 25 MINUTES RADIOLOGI 32996 [place] [facility] MEDICAL DEAN EXAMINATI IMAGING ON CHEST ASSOCIATE SINGLE S VIEW FRONTAL SBSQ 21668 [place] [address] DON R DON R CARE/DAY 25 MINUTES SBSQ 81930 [facility] 9 DON R DON R CARE/DAY 25 MINUTES ECG 66826 OMARI GUEVARA ROUTINE 9 [facility] W/LEAST PROF SERV 12 [place] [address] PATHOLOGY PATHOLOGY SURG 9 & & PATHOLOGY CYTOLOGY CYTOLOGY LAB LAB GROSS&SAJAN ROSCOPIC EXAM DECALCIFI 54980 PATHOLOGY PATHOLOGY CATION 9 & & PROCEDURE CYTOLOGY CYTOLOGY LAB LAB ANESTHESI 13447 [facility], Jacobo OPEN 9 ANESTH JORGE F [facility] SBSQ 40318 [facility] 9 DON R DON R CARE/DAY 25 MINUTES PARTIAL 8152 OMARI SALCIDO HIP 9 [facility] REPLACEME INC INC NT HIP 0074 OMARI OMARI BEARING 9 [facility] SURFACE INC INC METAL-ON- POLYETHYL AYUSH RADEX HIP 31410 [place] [facility] IM[facility] L 1 VIEW ASSOCIATE S GROUND A0425 [facility] PER SERVICE SERVICE STATUTE MILE INITIAL [address] [place] [address] DON R DON R CARE/DAY 50 MINUTES AMB A0427 [facility] 9 AMBULANCE AMBULANCE ALS SERVICE SERVICE EMERGENCY TRANSPORT LEVEL 1 RADEX HIP 59286 [facility], 9 [facility] IMAGING L ASSOCIATE COMPLETE S MINIMUM 2 VIEWS RADIOLOGI 91084 [facility] [place] [place] SERRANO 9 MEDICAL DEAN EXAMINATI IMAGING ON PELVIS ASSOCIATE 1/2 S VIEWS ECG 69067 EMILY MANZANOEY, ROUTINE 9 EMERGENCY MADDY S ECG SERVICES W/LEAST 12 LDS ASSOCIATE I&R ONLY S RADIOLOGI 66429 [facility] [place] [facility] [place] SERRANO 9 MEDICAL DEAN EXAMINATI IMAGING ON CHEST ASSOCIATE SINGLE S VIEW FRONTAL OPHTH 38490 MERRY LIANG [facility] 9 MEDICAL MARTINE D &EVAL SERV INTERMEDI FOUNDATIO ATE ESTAB PT PPSV23 07164 TYESHA ARAMBULA, ERNESTO 2 9 DON R DON R YRS OR OLDER FOR SUBQ/IM USE IIV3 25465 TYESHA ARAMBULA, VACCINE 9 DON R DON R SPLIT VIRUS 0.5 ML DOSAGE IM USE ADMINISTR G0009 TYESHA ARAMBULA, ATION OF 9 DON R DON R PNEUMOCOC CECILIA VACCINE ADMINISTR G0008 TYESHA ARAMBULA, ATION OF 9 DON R DON R INFLUENZA VIRUS VACCINE URNLS DIP 84111 TYESHA ARAMBULA, Candie DON R DON R STICK/TAB LET RGNT NON-AUTO W/O MICRSCP URNLS DIP 40455 TYESHA ARAMBULA 9 DON R DON R STICK/TAB LET RGNT NON-AUTO W/O MICRSCP INJECTION J3420 TYESHA ARAMBULA, VIT B-12 9 DON R DON R CYANOCOBA JEWEL TO 1000 MCG RADEX 37962 LORAINE ZACH WRIST 9 MEDICAL DEAN COMPLETE IMAGING MINIMUM 3 ASSOCIATE VIEWS S RADEX 26201 [facility] [place] [facility] [place] ZACH, ANKLE 9 MEDICAL DEAN COMPLETE IMAGING MINIMUM [address] PELVIS 56483 [facility] SALCIDO [facility] W/CONTRAS INC INC T MATERIAL CT THORAX 50123 O[facility] SALCIDO [facility] W/CONTRAS INC INC T MATERIAL 3D 96848 OMARI SALCIDO RENDERING 9 [facility] INC INC W/INTERP& [place] [address] OMARI SALCIDO ABDOMEN 9 [facility] W/CONTRAS INC INC T MATERIAL COMPREHEN 55131 [facility] SIVE 9 CLIN[facility]INIC METABOLIC LABORATOR LABORATOR PANEL Y Y COLLECTIO 37349 [facility] N VENOUS 9 [facility]IC [facility]IN[facility] BLOOD LABORATOR LABORATOR VENIPUNCT Y Y URE BLOOD 62416 [facility] COUNT 9 [facility] COMPLETE LABORATOR LABORATOR AUTO&AUTO Y Y DIFRNTL WBC INJECTION J1040 TYESHA ARAMBULA, 9 DON R DON R METHYLPRE DNISOLONE ACETATE 80 MG INJECTION J3420 TYESHA ARAMBULA, VIT B-12 9 DON R DON R CYANOCOBA JEWEL TO 1000 MCG COLLECTIO 92696 [facility] N VENOUS 9 [facility]INIC BLOOD LABORATOR LABOR[place] [address] [facility] BLOOD/URI 9 [facility]IC CLINIC C ACID LABORATOR LABORATOR Y Y BLOOD 32326 [facility] COUNT 9 [facility] COMPLETE LABORATOR LABORATOR AUTO&[place]O [place] [address] [facility] GAMMAGLOB 9 CLINIC CLINIC ULIN IGA LABORATOR LABORATOR IGD IGG Y Y IGM EACH LACTATE 43241 [facility] DEHYDROGE 9 CLINIC CLINIC NASE LDH LABORATOR LABORATOR Y Y COMPREHEN 22828 [facility] SIVE 9 CLIN[facility]INIC METABOLIC LABORATOR LABORATOR PANEL Y Y MYOCRD 64154 OMARI SALCIDO PRFUJ IMG 9 [facility] TOMOG INC INC SPECT SCORER HELPER STD CV STRS 36155 OMARI ROGER, TST 9 [facility] XERS&/OR HOSPITAL RX CONT PROF SERV ECG I&R ONLY MYOCRD 89271 OMARI SALCIDO PRFUJ STD 9 [facility] WALL INC INC MOTION QUAL/NAYE STD MYOCRD 91390 OMARI SALCIDO PRFUJ STD 9 [facility] EJEC FXJ INC INC CV STRS 22070 OMARI ROGER, TST 9 [facility] RX CONT PROF SERV ECG W/O I&R CV STRS 94611 OMARI SALCIDO TST 9 [facility] XERS&/OR INC INC RX CONT ECG TRCG ONLY TECHNETIU A9502 OMARI Hernandez TC-99M 9 [facility] TETROFOSM INC INC IN DX PER STUDY DOSE INJECTION J0152 [facility] SALCIDO 9 [facility] ADENOSINE INC INC DIAGNOSTI C USE 30 MG RADIOLOGI 75491 TYESHA ARAMBULA C 9 DON R DON R EXAMINATI ON CHEST SINGLE VIEW FRONTAL ECG 07172 TYESHA ARAMBULA ROUTINE 9 DON R DON R ECG W/LEAST 12 LDS W/I&R RADEX HIP 21605 TYESHA ARAMBULA 9 DON R DON R UNILATERA L COMPLETE MINIMUM 2 VIEWS RADIOLOGI 62173 TYESHA ARAMBULA C EXAM 9 DON R DON R PELVIS COMPL MINIMUM 3 VIEWS INJECTION J1040 TYESHA ARAMBULA 9 DON R DON R METHYLPRE DNISOLONE ACETATE 80 MG INJECTION J1040 TYESHA ARAMBULA 8 DON R DON R METHYLPRE DNISOLONE ACETATE [address] [place] [address] [facility] BLOOD/URI 8 CLINIC CLINIC C ACID LABORATOR LABORATOR Y Y BLOOD 36394 [facility] COUNT 8 CLINIC CLINIC COMPLETE LABORATOR LABORATOR AUTO&AUTO Y Y DIFRNTL WBC LACTATE 02813 [facility] DEHYDROGE 8 CLINIC CLINIC NASE LDH LABORATOR LABORATOR Y Y COLLECTIO 33852 [facility] N VENOUS 8 CLINIC CLINIC BLOOD LABORATOR LABORATOR VENIPUNCT Y Y URE COMPREHEN 02020 [facility] SIVE 8 CLINIC CLINIC METABOLIC LABORATOR LABORATOR PANEL Y Y INJECTION J1040 TYESHA ARAMBULA 8 DON R DON R METHYLPRE DNISOLONE ACETATE 80 MG [facility] 00139 MERRY LIANG, [address] D XM&EVAL SERV COMPRHNSV FOUNDATIO ESTAB PT 1/> URNLS DIP 98617 TYESHA ARAMBULA, Roberta DON R DON R STICK/TAB LET RGNT NON-AUTO W/O MICRSCP IIV3 04004 TYESHA ARAMBULA, VACCINE 8 DON R DON R SPLIT VIRUS 0.5 ML DOSAGE IM USE ADMINISTR G0008 TYESHA ARAMBULA, ATION OF 8 DON R DON R INFLUENZA VIRUS VACCINE POTASSIUM [address] PLASMA/[place] [address] [facility] LIPASE [address] [place] [address] BLOOD 46621 [facility] COUNT [address] [place] [address] COMPLETE AUTOMATED NATRIURET 10515 [facility] IC [address] [place] [address] PEPTIDE BLOOD 23233 [facility] GASES ANY [address] [place] [address] COMBINATI ON PH PCO2 PO2 CO2 HCO3 GLUCOSE 06597 [facility] [address] [place] [address] RIGO BLOOD XCPT REAGENT STRIP SODIUM [address] [place] [address] [facility] TROPONIN [address] [place] [address] QUANTITAT RIGO CHLORIDE 03871 [facility] BLD [address] [place] [address] RADIOLOGI 36816 [facility] C EXAM [address] [place] [address] CHEST 2 VIEWS FRONTAL&L ATERAL THER 18924 [facility] PROPH/DX [address] [place] [address] NJX IV PUSH 1ST SBST/DRUG IV NFUS 11621 [facility] HYDRATION [address] [place] [address] [place] [address] [facility] UREA [address] [place] [address] NITROGEN QUANTITAT RIGO ECG 73490 JAIME MUNOZMAN ROUTINE 8 [facility] ECG CLINIC J W/LEAST PSC 12 LDS I&R ONLY INJECTION J2405 [address] ONDANSETR ON HCL PER 1 MG ECG 77131 [facility] ROUTINE [address] [place] [address] ECG W/LEAST 12 LDS TRCG ONLY W/O I&R HEPATIC [address] PANEL URNLS DIP [address] STICK/TAB LET REAGENT AUTO MICROSCOP Y RADEX 43972 OMARI SALCIDO SPINE 8 [facility]UM[facility] INC AL MINIMUM 4 VIEWS RADIOLOGI 76698 TYESHA ARAMBULA C EXAM 8 DON R [...] Type Date CRITICAL [facility] JEOVANNY 7 7 [facility] OMARI - OUMOU 7 7 [facility] OMARI - OTHER 7 7 [facility] OMARI - 7 7 [facility] OUTPATIEN [facility] T OFFICE 29082 [facility] RIKI OUTPATIEN 7 7 PHYSICIAN T VISIT S GROUP 25 MINUTES [facility] OMARI - 7 7 [facility] OUTPATIEN [facility] T OFFICE 61283 [facility] RIKI OUTPATIEN 7 7 PHYSICIAN T VISIT S GROUP 25 MINUTES [facility] OMARI - 7 7 [facility] - 7 7 [facility] T OFFICE 94621 [facility] RIKI OUTPATIEN 7 7 PHYSICIAN T VISIT S GROUP 40 MINUTES [facility]OSPITAL [facility] - 7 7 [facility]PATIEN INC T OFFICE 83291 MERRY HENRY OUTPATIEN 7 7 MEDICAL T VISIT SERV 25 FOUNDATIO MINUTES [facility] OMARI - 7 7 [facility] OUTPATIEN INC [facility] - 7 7 [facility] INC T OFFICE 35324 [facility] RIKI OUTPATIEN 7 7 PHYSICIAN T VISIT S GROUP 40 MINUTES [facility] OMARI - 7 7 [facility] OUTPATIEN INC [facility] OMARI - 7 7 [facility] OUT[facility]EN INC T OFFICE 71614 MERRY HENRY OUTPATIEN 7 7 MEDICAL T NEW 60 SERV MINUTES [facility] OFFICE 58062 [facility] RIKI OUTPATIEN 7 7 PHYSICIAN T VISIT S GROUP 15 MINUTES [facility] OMARI - 7 7 [facility] OUTPATIEN INC [facility] OMARI - 7 7 [facility] OUTPATIEN INC [facility] OMARI - 7 7 [facility] OUTPATIEN INC T OFFICE 40670 [facility] RIKI OUTPATIEN 7 7 PHYSICIAN T NEW 60 S GROUP MINUTES [facility] - 7 7 [facility] OUTPATIEN INC [facility] - OTHER 7 7 [facility] INC EMERGENCY 32444 CUBA MAK 7 7 PHYSICIAN DEPARTMEN S, [facility] T VISIT HIGH/URGE NT SEVERITY EMERGENCY 84560 [facility] 7 7 [facility] DEPARTMEN INC T VISIT LOW/MODER SEVERITY [facility]OSPITAL [facility] - 7 7 [facility] OUTPATIEN INC T OFFICE 92538 ISMAEL GUEVARA JR OUTPATIEN 7 7 T VISIT 15 MINUTES OFFICE 24175 [facility] OUTPATIEN 6 6 [place] T NEW [address] [facility] INPATIENT 6 6 [facility] 6 6 [facility] OMARI - 6 6 [facility]PATIEN INC [facility] INPATIENT 6 6 [facility] EMERGENCY 54438 CUBA HUIZAR DEPT 6 6 PHYSICIAN SARAH VISIT S, PLL HIGH SEVERITY& THREAT [facility] OMARI - 6 6 [facility] INPATIENT INC EMERGENCY 33139 CUBA JAQUEZ 6 6 PHYSICIAN FOR DE[facility] S, [facility] V[facility] MODERATE SEVERITY OFFICE 94463 [facility] DYLAN SIMMONS OUTPATIEN 6 6 PHYSICIAN MANJINDER T VISIT S GROUP 10 MINUTES OFFICE 18397 ISMAEL GUEVARA JR OUTPATIEN 6 6 YOJANA DWI T VISIT 15 MINUTES HOSPITAL OMARI - 6 6 [facility] OUTPATIEN INC T OFFICE 13616 [facility] DYLAN SIMMONS OUTPATIEN 6 6 PHYSICIAN MANJINDER T VISIT S GROUP 15 MINUTES HOSPITAL [facility]I - 6 6 [facility] OUTPATIEN INC T OFFICE 33459 ISMAEL GUEVARA JR OUTPATIEN 6 6 YOJANA DWI T VISIT 15 MINUTES HOSPITAL OMARI - 6 6 [facility] OUTPATIEN INC T OFFICE 85280 ISMAEL GUEVARA JR OUTPATIEN 6 6 YOJANA DWI T VISIT 15 MINUTES OFFICE 67116 ISMAEL GUEVARA OUTPATIEN 6 6 YOJANA YOJANA T VISIT 15 MINUTES OFFICE 48599 ISMAEL GUEVARA JR OUTPATIEN 5 5 YOJANA DWI T VISIT 15 MINUTES HOSPITAL O[facility]I - 5 5 [facility] OUTPATIEN [facility] T OFFICE 39492 ISMAEL GUEVARA JR OUTPATIEN 5 5 YOJANA DWI T VISIT 15 MINUTES HOSPITAL O[facility]I - 5 5 [facility] - OTHER 5 5 [facility] OFFICE 15826 ISMAEL GUEVARA JR OUTPATIEN 5 5 YOJANA DWI T VISIT 15 MINUTES OFFICE 39675 [facility] ALLRAN OUTPATIEN 5 5 PHYSICIAN MANJINDER T VISIT S GROUP 15 MINUTES HOSPITAL O[facility]I - OTHER 5 5 [facility] OMARI - 5 5 [facility] OFFICE 33446 [facility] ALLRAN OUTPATIEN 5 5 PHYSICIAN MANJINDER T VISIT S GROUP 25 MINUTES HOSPITAL O[facility]I - 5 5 [facility] OMARI - 5 5 [facility] O[facility] - OTHER 5 5 [facility] - OTHER 5 5 [facility] OFFICE 90690 ISMAEL GUEVARA JR OUTPATIEN 5 5 YOJANA DWI T VISIT 15 MINUTES HOSPITAL OMARI - OTHER 5 5 [facility] OFFICE 81995 ISMAEL GUEVARA JR OUTPATIEN 5 5 YOJANA DWI T VISIT 15 MINUTES HOSPITAL O[facility]I - 5 5 [facility] EMERGENCY 85145 OMARI 5 5 [facility] VISIT HIGH/URGE NT SEVERITY OFFICE 50644 ISMAEL GUEVARA JR OUTPATIEN 5 5 YOJANA DWI T VISIT 15 MINUTES HOSPITAL OMARI - OTHER 5 5 [facility] INC OFFICE 12376 ISMAEL GUEVARA JR OUTPATIEN 4 4 YOJANA DWI T VISIT 15 MINUTES OFFICE 38539 ISMAEL GUEVARA JR OUTPATIEN 4 4 YOJANA DWI T VISIT 15 MINUTES HOSPITAL O[facility]I - 4 4 [facility] OUTPATIEN [facility] T OFFICE 33948 [facility] ANJUR-SUKHDEV OUTPATIEN 4 4 [facility] NEW 30 MEDICAL MINUTES G OFFICE 04886 ISMAEL GUEVARA JR OUTPATIEN 4 4 YOJANA DWI T VISIT 15 MINUTES HOSPITAL [facility] - 4 4 [facility] OFFICE 90361 ISMAEL GUEVARA JR OUTPATIEN 4 4 YOJANA DWI T VISIT 15 MINUTES HOSPITAL [facility] - 4 4 [facility] EMERGENCY 57439 OMARI 4 4 [facility] T VISIT HIGH/URGE NT SEVERITY EMERGENCY 45707 [facility] 4 4 [facility] VISIT EMERGENCY HIGH PHYS SEVERITY& THREAT FUN OFFICE 09890 ISMAEL GUEVARA JR OUTPATIEN 4 4 YOJANA DWI T VISIT 15 MINUTES EMERGENCY 79868 [facility] 4 4 [facility] CTR T VISIT MODERATE SEVERITY CRITICAL [facility] ACCESS 4 4 [facility] OFFICE 36520 ISMAEL GUEVARA JR OUTPATIEN 4 4 YOJANA DWI T VISIT 10 MINUTES HOSPITAL OMARI - OTHER 4 4 [facility] INC OFFICE 80872 ISMAEL GUEVARA JR OUTPATIEN 4 4 YOJANA DWI T VISIT 15 MINUTES OFFICE 20768 ISMAEL GUEVARA JR OUTPATIEN 4 4 YOJANA DWI T VISIT 15 MINUTES HOSPITAL [facility] - 4 4 [facility] OUTPATIEN INC T HOSPITAL O[facility]I - OTHER 4 4 [facility] INC OFFICE 81992 ISMAEL GUEVARA JR OUTPATIEN 4 4 YOJANA DWI T VISIT 15 MINUTES OFFICE 89415 ISMAEL GUEVARA JR OUTPATIEN 4 4 YOJANA DWI T VISIT 15 MINUTES EMERGENCY 49191 [facility] DEPT 4 4 [facility] VISIT EMERGENCY HIGH PHYS SEVERITY& THREAT FUNCJ OFFICE 53847 ISMAEL GUEVARA JR OUTPATIEN 4 4 YOJANA DWI T VISIT 15 MINUTES OFFICE 59816 ISMAEL GUEVARA JR OUTPATIEN 4 4 YOJANA DWI T VISIT 25 MINUTES HOSPITAL [facility] - 4 4 [facility] HOSP[facility] OMAR[facility] - 4 4 [facility]ERGENC[facility] 07675 [facility] 4 4 [facility] DEPARTMEN EMERGENCY T VISIT PHYS HIGH/URGE NT SEVERITY EMERGENCY 46065 O[facility] 4 4 [facility] T VISIT MODERATE SEVERITY EMERGENCY 98274 O[facility] 4 4 [facility] T VISIT LOW/MODER SEVERITY EMERGENCY 08638 [facility] 4 4 [place] DEPARTMEN EMERGENCY T VISIT PHYS MODERATE SEVERITY HOSPITAL [facility] - 4 4 [facility] HOSPITAL OMAR[facility] - OTHER 4 4 [facility] OMARI - 3 3 [facility] OFFICE 18908 ISMAEL GUEAVRA JR OUTPATIEN 3 3 YOJANA DWI T VISIT 15 MINUTES HOSPITAL [facility] - 3 3 [facility] OFFICE 89070 [facility] 3 3 [place] T VISIT ORTHOPAED [facility] MINUTES OFFICE 99220 [facility] OUTPATIEN 3 3 [facility]IN[facility] 15 PSC MINUTES OFFICE 98269 ARAMBULA ARAMBULA OUTPATIEN 3 3 DON DON T VISIT 15 MINUTES OFFICE 01925 ARAMBULA ARAMBULA OUTPATIEN 3 3 DON DON T VISIT 15 MINUTES Emergency TY Arias (ER) 3 14:41 3 16:55 [facility] EMERGENCY 01317 OMAR[facility] 3 3 [facility] DEPARTMEN INC T VISIT LOW/MODER SEVERITY EMERGENCY 20136 EMILY ARIAS DEPT 3 3 EMERGENCY [facility] VISIT SERVICES HIGH SEVERITY& THREAT [facility] OMARI - 3 3 [facility] OUTPATIEN INC Emergency TY Stark MD (ER) 3 20:06 3 23:03 [facility] EMERGENCY 40228 OMAR[facility] 3 3 [facility] DEPARTMEN INC T VISIT LOW/MODER SEVERITY HOSPITAL O[facility] - 3 3 [facility] OUTPATIEN [facility] EMERGENCY 88501 EMLIY STARK DEPT 3 3 EMERGENCY [facility] VISIT SERVICES HIGH SEVERITY& THREAT [facility] OFFICE 75961 ARAMBULA ARAMBULA OUTPATIEN 3 3 DON DON T VISIT 15 MINUTES HOSPITAL [facility] - 3 3 [facility] OUTPATIEN INC OFFICE 92365 ARAMBULA ARAMBULA OUTPATIEN 3 3 DON DON T VISIT 25 MINUTES OFFICE 67113 ARAMBULA ARAMBULA OUTPATIEN 3 3 DON DON [...] OMARI - 3 3 [facility] OUTPATIEN [facility] OFFICE 28279 ARAMBULA ARAMBULA OUTPATIEN 3 3 DON DON T VISIT 15 MINUTES OFFICE 80692 ARAMBULA ARAMBULA OUTPATIEN 2 2 DON DON T VISIT 15 MINUTES OFFICE 30023 ARAMBULA ARAMBULA OUTPATIEN 2 2 DON DON T VISIT 25 MINUTES OFFICE 62209 ARAMBULA ARAMBULA OUTPATIEN 2 2 DON DON T VISIT 25 MINUTES OFFICE 74443 ARAMBULA ARAMBULA OUTPATIEN 2 2 DON DON T VISIT 25 MINUTES OFFICE 37626 ARAMBULA ARAMBULA OUTPATIEN 2 2 DON DON T VISIT 15 MINUTES HOSPITAL [facility] - 2 2 [facility] OUTPATIEN [facility] EMERGENCY 01635 EMILY STARK DEPT 2 2 EMERGENCY [facility] VISIT SERVICES HIGH SEVERITY& THREAT [facility] EMERGENCY 06993 O[facility]I 2 2 [facility] VISIT HIGH/URGE NT SEVERITY OFFICE 09860 [facility] OUTPATIEN 2 2 [facility] VISIT CLINIC 15 PSC MINUTES HOSPITAL [facility] - 2 2 [facility] OUTPATIEN INC OFFICE 82548 ARAMBULA ARAMBULA OUTPATIEN 2 2 DON DON T VISIT 15 MINUTES OFFICE 26781 ARAMBULA ARAMBULA OUTPATIEN 2 2 DON DON T VISIT 15 MINUTES HOSPITAL O[facility] - 2 2 [facility] OUTPATIEN [facility] OMAR[facility] - 2 2 [facility] OUTPATIEN [facility] OFFICE 82902 ARAMBULA ARAMBULA OUTPATIEN 2 2 DON DON T VISIT 15 MINUTES OFFICE 29321 ARAMBULA ARAMBULA OUTPATIEN 2 2 DON DON T VISIT 15 MINUTES OFFICE 18291 ARAMBULA ARAMBULA OUTPATIEN 1 1 DON DON T VISIT 15 MINUTES OFFICE 63742 ARAMBULA ARAMBULA OUTPATIEN 1 1 DON DON T VISIT 15 MINUTES OFFICE 09369 [facility]AT OUTPATIEN 1 1 MAR MAR T VISIT 10 MINUTES OFFICE 54628 ARAMBULA ARAMBULA OUTPATIEN 1 1 DON DON T VISIT 15 MINUTES EMERGENCY 66785 EMILY [facility] VIS[facility] MODERATE SEVERITY OFFICE 18112 ARAMBULA ARAMBULA OUTPATIEN 1 1 DON DON T VISIT 15 MINUTES HOSPITAL [facility] - 1 1 [facility] OUTPATIEN [facility] OFFICE 14358 ARAMBULA ARAMBULA OUTPATIEN 1 1 DON DON T VISIT 15 MINUTES OFFICE 02016 ARAMBULA ARAMBULA OUTPATIEN 1 1 DON DON T VISIT 15 MINUTES OFFICE [address]5092 [place] [facility] 1 1 AKI[facility] AND T NEW [facility] CLINIC MIN[facility] OFF[facility] 69362 ARAMBULA ARAMBULA OUTPATIEN 1 1 DON DON T VISIT 15 MINUTES OFFICE 87376 DERIK LOMELIT OUTPATIEN 1 1 [facility] T NEW 20 MINUTES HOSPITAL [facility] - 1 1 [facility] T OFFICE 41443 JAIME [facility] OUT[facility] 1 1 [facility] VISIT CLINIC 25 PSC MINUTES OFFICE 45220 ARAMBULA ARAMBULA OUTPATIEN 1 1 DON DON T VISIT 15 MINUTES OFFICE 98585 ARAMBULA ARAMBULA OUTPATIEN 1 1 DON DON T VISIT 15 MINUTES OFFICE 13813 ARAMBULA ARAMBULA OUTPATIEN 1 1 DON DON T VISIT 15 MINUTES OFFICE 98117 [facility] OUTPAT[facility]EN 1 1 [facility] 15 P MINUTES OFFICE 41669 ARAMBULA ARAMBULA OUTPATIEN 1 1 DON DON T VISIT 15 MINUTES OFFICE 50849 ARAMBULA ARAMBULA OUTPATIEN 1 1 DON DON T VISIT 15 MINUTES [facility] T OFFICE 10422 ARAMBULA ARAMBULA OUTPATIEN 1 1 DON DON T VISIT 15 MINUTES OFFICE 86450 ARAMBULA ARAMBULA OUTPATIEN 0 0 DON DON T VISIT 15 MINUTES OFFICE 25104 ARAMBULA ARAMBULA OUTPATIEN 0 0 DON DON T VISIT 15 MINUTES OFFICE 22856 ARAMBULA ARAMBULA OUTPATIEN 0 0 DON DON T VISIT 15 MINUTES OFFICE 19401 ARAMBULA ARAMBULA OUTPATIEN 0 0 DON DON T VISIT 15 MINUTES EMERGENCY 71154 [facility] 0 0 [facility] T VISIT LOW/MODER SEVERITY [facility] - [facility] 0 [facility] T EMERGENCY 64476 EMILY STARK 0 0 EMERGENCY [facility] DEPARTMEN SERVICES T VISIT HIGH/URGE NT SEVERITY OFFICE 21851 TYESHA ARAMBULA OUTPATIEN 0 0 DON DON T VISIT 15 MINUTES [facility] - [facility] 0 [facility] T OFFICE 83682 TYESHA ARAMBULA OUTPATIEN 0 0 DON DON T VISIT 15 MINUTES OFFICE 94555 [facility] LTH VARUN T VISIT UROLOGY 15 PSC MINUTES OFFICE 81215 TYESHA ARAMBULA OUTPATIEN 0 0 DON DON T VISIT 15 MINUTES OFFICE 07425 [facility] 0 0 LTH VARUN T NEW 20 UROLOGY MINUTES PSC OFFICE 51859 TYESHA ARAMBULA OUTPATIEN 0 0 DON DON T VISIT 15 MINUTES OFFICE 80261 TYESHA ARAMBULA OUTPATIEN 0 0 DON DON T VISIT 15 MINUTES OFFICE 11957 TYESHA ARAMBULA, OUTPATIEN 0 0 DON R DON R T VISIT 15 MINUTES EMERGENCY 67667 [facility] 0 0 [facility] DEPARTMEN INC T VISIT LIMITED/M INOR PROB EMERGENCY 93158 EMILY STARK, 0 0 EMERGENCY [facility] DEPARTMEN SERVICES T VISIT HIGH/URGE ASSOCIATE NT S SEVERITY [facility] - 0 0 [facility] T OFFICE 06757 TYESHA ARAMBULA OUTPATIEN 0 0 DON R DON R T VISIT 15 MINUTES OFFICE 92446 JAIME GEIGER OUTPATIEN 0 0 AKIKO Johnson T VISIT CLINIC 15 PSC MINUTES OFFICE 09516 TYESHA ARAMBULA OUTPATIEN 0 0 DON R DON R T VISIT 15 MINUTES [facility] - 0 0 [facility] T EMERGENCY 21328 EMILY GUNN, 0 0 EMERGENCY [facility] SERVICES T VISIT HIGH/URGE ASSOCIATE NT S SEVERITY EMERGENCY 21321 OMARI 0 0 [facility] T VISIT LIMITED/M INOR PROB OFFICE 37736 TYESHA ARAMBULA OUTPATIEN 0 0 DON R DON R T VISIT 15 MINUTES [facility] - 0 0 [facility] INC T OFFICE 25849 TYESHA ARAMBULA OUTPATIEN 0 0 DON R DON R T VISIT 15 MINUTES [facility] - 0 0 [facility] INC T OFFICE 26463 [place] BANDAR MCLAIN 0 0 AND HAND NANDO A T NEW 10 SURGEONS MINUTES PSC OFFICE 40139 TYESHA ARAMBULA OUTPATIEN 0 0 DON R DON R T VISIT 25 MINUTES OFFICE 19380 TYESHA ARAMBULA OUTPATIEN 0 0 DON R DON R T VISIT 15 MINUTES OFFICE 93070 TYESHA AARMBULA OUTPATIEN 9 9 DON R DON R T VISIT 15 MINUTES OFFICE 26477 TYESHA ARAMBULA OUTPATIEN 9 9 DON R DON R T VISIT 15 MINUTES [facility] - 9 9 [facility] T [facility] - 9 9 [facility] INPATIENT INC EMERGENCY 53800 EMILY STARK, DEPT 9 9 EMERGENCY [facility] VISIT SERVICES HIGH SEVERITY& ASSOCIATE THREAT S FUNCJ OFFICE 65583 TYESHA ARAMBULA OUTPATIEN 9 9 DON R DON R T VISIT 15 MINUTES OFFICE 33101 TYESHA ARAMBULA OUTPATIEN 9 9 DON R DON R T VISIT 15 MINUTES OFFICE 77753 TYESHA ARAMBULA OUTPATIEN 9 9 DON R DON R T VISIT 15 MINUTES OFFICE 19648 TYESHA ARAMBULA OUTPATIEN 9 9 DON R DON R T VISIT 25 MINUTES [facility]OSP[facility] - 9 9 [facility] OUTPATIEN INC T EMERGENCY 34641 O[facility]I 9 9 [facility] DEPARTMEN INC T VISIT MODERATE SEVERITY EMERGENCY 27755 EMILY RAINES, 9 9 EMERGENCY [facility] DEPARTMEN SERVICES T VISIT HIGH/URGE ASSOCIATE NT S SEVERITY [facility] OMARI - 9 9 [facility] OUTPATIEN INC T OFFICE 61367 BANDAR CARRASCO 9 9 AKIKO Johnson T VISIT CLINIC 25 PSC MINUTES OFFICE 50305 TYESHA ARAMBULA OUTPATIEN 9 9 DON R DON R T VISIT 15 MINUTES OFFICE [id number] BANDAR CARRASCO 9 9 AKIKO MADDY E T VISIT CLINIC 25 PSC MINUTES [facility] - 9 9 [facility] OUTPATIEN INC T OFFICE 10078 TYESHA ARAMBULA OUTPATIEN 9 9 DON R DON R T VISIT 15 MINUTES OFFICE 77626 TYESHA ARAMBULA OUTPATIEN 9 9 DON R DON R T VISIT 15 MINUTES OFFICE 33496 TYESHA ARAMBULA OUTPATIEN 8 8 DON R DON R T VISIT 15 MINUTES OFFICE 27185 TYESHA ARAMBULA OUTPATIEN 8 8 DON R DON R T VISIT 15 MINUTES OFFICE 95724 TYESHA ARAMBULA OUTPATIEN 8 8 DON R DON R T VISIT 15 MINUTES OFFICE 90488 NEW [facility]LL 8 8 [facility] 45790 EMERGENCY [facility]CKER[facility], DEPT 8 8 PHYS CARL W VISIT [place] [facility] THREAT FUN EMERGENCY 09903 [facility] 8 8 HOSPITAL OUTPATIEN T [facility] - 8 8 [facility] OFF[facility] 85423 TYESHA ARAMBULA OUTPATIEN 8 8 DON R DON R T VISIT 15 MINUTES OFFICE 34115 TYESHA ARAMBULA OUTPATIEN 8 8 DON R DON R T VISIT 15 MINUTES OFFICE 15817 TYESHA ARAMBULA OUTPATIEN 8 8 DON R DON R T VISIT 15 MINUTES OFFICE 71410 TYESHA ARAMBULA OUTPATIEN 8 8 DON R DON R T VISIT 15 MINUTES OFFICE 93209 TYESHA ARAMBULA OUTPATIEN 8 8 DON R DON R T VISIT 15 MINUTES
--- OUTSIDE RECORDS SUMMARY | 2017-08-19 19:14 | External Medical Summary Rpt | CCD ---
Author Author , KARLIE POPERAJAN Address Unknown Phone [email or web address] Care Team Providers Care Director Apparel Name Role Phone ALFARIS MOH, ALFARIS Unavailable Unavailable MOH ALLRAN JR MANJINDER, ALLRAN Unavailable Unavailable JR MANJINDER ANJUR-KAPALI CORNELIA, Unavailable Unavailable ANJUR-KAPALI CORNELIA [facility] Unavailable [facility], [facility] Unavailable Unavailable [facility], [facility] ALONSO BRO, GUPTA Unavailable Unavailable BRO BEINEKE ANGELIKA, BEINEKE Unavailable Unavailable ANGELIKA BESSON CASSANDRA, BESSON Unavailable Unavailable CASSANDRA BESSON, CARITO A, Unavailable Unavailable BESSON, CARITO A SALVADOR, SALVADOR Unavailable Unavailable SALVADOR ALL, SALVADOR ALL Unavailable Unavailable [facility], Unavailable Unavailable [facility] Unavailable Unavailable SERVICE, [facility] Unavailable Unavailable SERVICE, [facility] ANDREA RAE IGN, Unavailable Unavailable ANDREA RAE IGN ACKERMAN, CARL W, Unavailable Unavailable ACKERMAN, CARL W DAMIAN SAJAN, DAMIAN SAJAN Unavailable Unavailable [facility] Unavailable Unavailable C[facility], [facility] Unavailable Unavailable ANESTHESIA, [facility] Unavailable Unavailable [facility] & Unavailable Unavailable DUBILIER, [facility], Unavailable Unavailable [facility] BARROW JANET, BARROW Unavailable Unavailable JANET [facility] Unavailable Unavailable [place], [facility] Unavailable Unavailable [facility], [facility] Unavailable Unavailable [facility], [facility] Unavailable Unavailable [facility], [facility] GARTH MAGANA Unavailable Unavailable ORTEGA VIVAS, Unavailable Unavailable MARTINE SALDIVAR JR, Unavailable Unavailable MARTINE LIANG JR, ESTIVEN Unavailable Unavailable JR VARUN ZACH, ZACH Unavailable Unavailable ZACH LATRELL, Unavailable Unavailable ZACH LATRELL DEAN SERRANO, Unavailable Unavailable DEAN SERRANO FEEBACK, FEEBACK Unavailable Unavailable ARMIN RAINES P, Unavailable Unavailable ARMIN RAINES P LEOBARDO SAJAN, LEOBARDO Unavailable Unavailable SAJAN MADDY BOOTH S, Unavailable Unavailable MADDY BOOTH S [facility] Un[facility] Un[facility], [facility] Unavailable Unavailable HOSPITAL P, [facility] HOSPITAL P [facility], Unavailable Unavailable [facility] HORN SAJAN, HORN SAJAN Unavailable Unavailable HORN, MADDY E, Unavailable Unavailable HORN, MADDY E BRENNAN JOSHI, BRENNAN Unavailable Unavailable ADI MAK, MAK Unavailable Unavailable LUCAS TRA, LUCAS TRA Unavailable Unavailable MANUELA ORTEGA, MANUELA Unavailable Unavailable ORTEGA CASEY CHARLES, CASEY CHARLES Unavailable Unavailable [facility]available Unavailable [facility] PS, [facility] Un[facility], [facility] Unavailable Unavailable [facility], [facility] Unavailable Unavailable MEDICAL G, [facility] MEDICAL G KORBA ORTEGA, KORBA [...] YOJANA E, Unavailable Unavailable ISMAEL, YOJANA E [facility] Unavailable Unavailable [facility], [facility] Unavailable Unavailable LABORATORY, [facility] Unavailable Unavailable SERVICES, [facility] RAY AND, Unavailable Unavailable RAY AND MAYDA SIMMONS JEN Unavailable Unavailable F, JEN OHARA JR F MARCO TRISTAN P, Unavailable Unavailable MARCO TRISTAN WILLIAM F, Unavailable Unavailable JEN GAMINO CLAUDETTE ORTEGA, CLAUDETTE Unavailable Unavailable ORTEGA ARABELLAMAHESH IRELAND M, Unavailable Unavailable ARABELLAMAHESH IRELAND M [facility] Unavailable Unavailable [facility], [facility] NANDO PEREZ, Unavailable Unavailable NANDO [...] Unavailable EQUIPME, [facility]1983 Unavailable Unavailable EMERGENCY PHYS, [facility]1983 EMERGENCY PHYS RIGBY SHE, Unavailable Unavailable NISHA [facility], Unavailable Unavailable [facility], Unavailable Unavailable [facility] TYESHA DON, Unavailable Unavailable ARAMBULA DON ARAMBULA DON, Unavailable Unavailable ARAMBULA REMBERTO ARAMBULA, REMBERTO R, Unavailable Unavailable TYESHA, REMBERTO R LILO RALPH, LILO Unavailable Unavailable ONOFRE URIBE, Unavailable Unavailable ONOFRE GUNN FOR, WALKER Unavailable Unavailable FOR WEHRMAN III VARNU, Unavailable Unavailable WEHRMAN III VARUN HENRY, HENRY Unavailable Unavailable MUSA MAT, MUSA MAT Unavailable Unavailable Purpose Continuity of Care Document - 11-18-2007 through 2016 Problems Code Diagnosis DOS Provider Status [id number] UNSPECIFIED 07-17-2017 [facility]. INJURY OF [place] HEAD [facility]THA INITIAL ENCOUNTER [id number] CONTUSION 07-17-2017 ST. OF LEFT [place] FOREARM PARTHA INITIAL ENCOUNTER [id number] LACERATION 07-17-2017 ST. W/O FOREIGN JESSE BODY LT PARTHA FOREARM INITIAL E90165 OTHER LONG 07-17-2017 . TERM [place] CURRENT PARTHA DRUG THERAPY Z9181 HISTORY OF 07-17-2017 [facility]. [place]ALL[place] JESSE GRANT E875 HYPERKALEMI 07-06-2017 [facility] A [facility] D649 ANEMIA 07-02-2017 [facility] UNSPECIFIED [facility] I10 ESSENTIAL 07-02-2017 [facility] PRIMARY [facility] HYPERTENSIO INC N K219 GASTRO-ESOP 07-02-2017 [facility] H REFLUX [facility] DISEASE INC WITHOUT ESOPHAGITIS N183 CHRONIC 07-02-2017 [facility] KIDNEY [facility] DISEASE INC STAGE 3 MODERATE B52957 UNSPECIFIED 06-28-2017 [facility] ASTHMA HOME WITH ACUTE MEDICAL EXACERBATIO EQUIPME N J90 PLEURAL 06-16-2017 [facility] EFFUSION MEDICAL NOT IMAGING ASS ELSEWHERE CLASSIFIED R0602 SHORTNESS 06-16-2017 [facility] BREATH [facility]ICAL IMAGING ASS R062 WHEEZING 06-16-2017 [facility] R918 OTHER 06-16-2017 [facility] NONSPECIFIC MEDICAL ABNORMAL IMAGING ASS FINDING OF LUNG FIELD I119 HYPERTENSIV 06-01-2017 [facility] E HEART PHYSICIANS DISEASE GROUP WITHOUT HEART FAILURE I4891 UNSPECIFIED 06-01-2017 [facility] ATRIAL PHYSICIANS FIBRILLATIO GROUP N R0600 DYSPNEA 06-01-2017 [facility] UNSPECIFIED [facility] INC Z950 PRESENCE OF 06-01-2017 [facility] CARDIAC PHYSICIANS PACEMAKER GROUP I2510 ASHD [place] INDI[facility] TRIBE 04-27-2017 [facility] 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 ANGINA PECTORIS I351 NONRHEUMATI 04-27-2017 [facility] C AORTIC PHYSICIANS VALVE GROUP INSUFFICIEN CY R296 REPEATED 04-27-2017 [facility] FALLS PHYSICIANS GROUP R5383 OTHER 04-27-2017 [facility] FATIGUE PHYSICIANS GROUP L78564 PAIN IN 04-23-2017 [facility] LEFT ARM MEDICAL IMAGING ASS L85187 PAIN IN 04-23-2017 [facility] LEFT UPPER [facility] ARM INC R2232 LOCALIZED 04-23-2017 [facility] SWELLING [facility] MASS AND INC LUMP LEFT UPPER LIMB R600 LOCALIZED 04-23-2017 [facility] EDEMA MEDICAL IMAGING ASS C8597 NON-HODGKIN 04-20-2017 [facility] LYMPHOMA [facility] UNSPECIFIED INC SPLEEN I272 OTHER 04-20-2017 [facility] SECONDARY [facility] PULMONARY INC HYPERTENSIO N I495 SICK SINUS 04-20-2017 [facility] SYNDROME PHYSICIANS GROUP R001 BRADYCARDIA 04-20-2017 [facility] PHYSICIANS UNSPECIFIED GROUP R002 PALPITATION 04-20-2017 [facility] S PHYSICIANS GROUP I482 CHRONIC 04-02-2017 [facility] ATRIAL SERV FIBRILLATIO FOUNDATION N C8590 NON-HODGKIN 03-22-2017 [facility] LYMPHOMA MEDICAL UNS IMAGING ASS UNSPECIFIED SITE I209 ANGINA 03-16-2017 [facility] PECTORIS [facility] UNSPECIFIED INC I208 OTHER FORMS 03-10-2017 [facility] OF ANGINA [facility]OS[facility] PECTORIS INC K87965 PERSONAL 02-26-2017 [place] [facility] HISTORY [place] SERV [facility] THROMBOSIS& EMBOLISM I78093 ACUTE EMBO 02-23-2017 [facility] THROMB UNS PHYSICIANS DEEP VEINS GROUP UNS LOW EXTREM R42 DIZZINESS 02-23-2017 [facility] AND PHYSICIANS GIDDINESS GROUP I499 CARDIAC 02-03-[address] [facility] I517 CARDIOMEGAL 02-03-2017 [facility] Y [facility]ICAL IMAGING ASS H74916 SPONDYLOSIS 02-03-2017 [facility] W/O MEDICAL MYELOPATH/R IMAGING ASS ADICULOPATH Y CERV RGN D77301 OTHER 02-03-2017 [facility] CERVICAL MEDICAL DISC IMAGING ASS DEGENERATIO N AT C5-C6 LEVEL H75081 OTHER 02-03-2017 [facility] CERVICAL MEDICAL DISC IMAGING ASS DEGENERATIO N AT C6-C7 LEVEL M542 CERVICALGIA 02-03-2017 [facility] M545 LOW BACK 01-13-2017 [facility] PAIN [facility] INC R109 UNSPECIFIED 01-13-2017 [facility] ABDOMINAL [facility] PAIN INC R110 NAUSEA 01-13-2017 [facility] INC Z8673 PERSONAL HX 01-13-2017 [facility] TIA & MEM [facility] CEREB INC INFARCT NO RESID DEFICIT O97389 PAIN IN 01-05-2017 [facility] LEFT HIP MEDICAL IMAGING ASS E18252I FRACTURE 01-05-2017 [facility] LT IMAGING ASS PUBIS INIT ENC CLOS FX [id number] OTHER SPEC 01-05-2017 [facility] FX LT PUBIS PHYSICIANS, INITIAL PLLC CLOS FRACTURE J209 ACUTE 11-30-2016 ISMAEL SIMMONS BRONCHITIS UNSPECIFIED Z6830 BODY MASS 11-30-2016 ISMAEL JR INDEX BMI 30.0-30.9 ADULT H903 SENSORINEUR 08-04-2016 [place] EAR NOSE AL HEARING AND THROAT LOSS BILATERAL H905 UNSPECIFIED 08-04-2016 [facility] HEARING LOSS D539 NUTRITIONAL 06-08-2016 [facility] ANEMIA HEALTH UNSPECIFIED CAMPUS D62 ACUTE 06-08-2016 [facility] POSTHEMORRH HEALTH AGIC ANEMIA CAMPUS R410 DISORIENTAT 06-08-2016 [facility] ION HEALTH UNSPECIFIED CAMPUS W02855V FX UNS PART 06-08-2016 [facility] NECK LT HEALTH FEMUR CAMPUS SUBSQT CLOS FX RTN 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 W/STAGE 1-4 HOSPITAL P CKD OR UNS CKD T47646 ASHD [facility] [facility] TRIBE 04-05-2016 [facility]ONZALEZ [facility] W/UNS INC ANGINA PECTORIS L62415 PAIN IN 04-05-2016 [facility] LEFT THIGH MEDICAL IMAGING ASS N179 ACUTE 04-05-2016 [facility] KIDNEY [facility] P UNSPECIFIED R079 CHEST PAIN 04-05-2016 [facility] UNSPECIFIED MEDICAL IMAGING ASS Z60842E FX UNS PART 04-05-2016 [facility] NECK LT PHYSICIANS, FEMUR PLLC INITIAL ENC CLOS FX L15757W UNS 04-05-2016 [facility] INTRACAPSUL MEDICAL AR FX LT IMAGING ASS FEMUR INIT ENC CLOS FX R43PBJK UNSPECIFIED 04-05-2016 [facility] FALL PHYSICIANS INITIAL GROUP ENCOUNTER Z9889 OTHER 04-05-2016 [facility] SPECIFIED MEDICAL POSTPROCEDU IMAGING ASS [facility] STATES R0781 PLEURODYNIA 03-30-2016 [facility] R0789 OTHER CHEST 03-30-2016 [facility] PAIN PHYSICIANS, PLLC R911 SOLITARY 03-30-2016 [facility] PULMONARY MEDICAL NODULE IMAGING ASS R1031 RIGHT LOWER 03-23-2016 [facility] QUADRANT PHYSICIANS PAIN GROUP R197 DIARRHEA 02-25-2016 COMMUNITY UNSPECIFIED ANESTH OF THE BLUE L299 PRURITUS 02-21-2016 ISMAEL UNSPECIFIED YOJANA K32556 SPONDYLOSIS 02-21-2016 IS[facility] W/O YOJANA MYELOPATH/R ADICULPATHY LS RGN N281 CYST OF 02-21-2016 [facility] KIDNEY MEDICAL ACQUIRED IMAGING ASS R1030 LOWER 02-21-2016 ISMAEL ABDOMINAL YOJANA PAIN UNSPECIFIED R312 OTHER 02-21-2016 [facility] MICROSCOPIC YOJANA HEMATURIA R319 HEMATURIA 02-21-2016 [facility] UNSPECIFIED MEDICAL IMAGING ASS Z6833 BODY MASS 02-21-2016 ISMAEL INDEX BMI YOJANA 33.0-33.9 ADULT R05 COUGH 01-07-2016 [facility] R509 FEVER 01-07-2016 [facility] UNSPECIFIED MEDICAL IMAGING ASS A084 VIRAL 12-18-2015 IS[facility] INTESTINAL YOJANA INFECTION UNSPECIFIED M150 PRIMARY 09-30-2015 [facility] GENERALIZED PHYSICIANS DAVID OSTEOARTHRI TIS Z23 ENCOUNTER 08-30-2015 ISMAEL FOR YOJANA IMMUNIZATIO N Z6831 BODY MASS 08-30-2015 ISMAEL INDEX BMI YOJANA 31.0-31.9 ADULT 2761 HYPOSMOLALI 08-02-2015 [facility] TY AND/OR [facility] HYPONATREMI INC A 2859 UNSPECIFIED 08-02-2015 [facility] ANEMIA [facility] INC 22338 UNS 08-02-2015 [facility] GASTRITIS&G [facility] ASTRODUODIT INC IS W/O MENTION HEMORR 94390 PAIN IN 08-02-2015 [facility] JOINT MEDICAL PELVIC IMAGING ASS REGION AND THIGH 89023 OTHER 07-15-2015 N[facility]ER DYSPNEA AND CO AMBULANCE RESPIRATORY TAXIN ABNORMALITI ES 0093 DIARRHEA OF 07-02-2015 ISMAEL PRESUMED YOJANA INFECTIOUS ORIGIN 4011 ESSENTIAL 07-02-2015 [facility] HYPERTENSIO YOJANA N, BENIGN 5853 CHRONIC 07-02-2015 [facility] KIDNEY YOJANA DISEASE STAGE III (MODERATE) 7242 LUMBAGO 07-02-2015 [place] [address] OTHER 07-02-2015 ISMAEL MALAISE AND YOJANA FATIGUE V8533 BODY MASS 07-02-2015 ISMAEL INDEX YOJANA 33.0-33.9 ADULT 7295 PAIN IN 06-24-2015 [facility] SOFT MEDICAL TISSUES OF IMAGING ASS LIMB 7823 EDEMA 06-24-2015 [facility] 2724 OTHER AND 06-21-2015 ISMAEL UNSPECIFIED YOJANA HYPERLIPIDE SHERYL 74933 DEHYDRATION 06-21-2015 ISMAEL YOJANA 412 OLD 06-21-2015 ISMAEL MYOCARDIAL YOJANA INFARCTION 16877 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 ISMAEL NODE YOJANA DYSFUNCTION 49443 ATROPHIC 06-21-2015 ISMAEL GASTRITIS YOJANA WITHOUT MENTION OF HEMORRHAGE 99300 OTHER 06-21-2015 [facility] ALTERATION [place]ICAL [place] [address] FEVER 06-21-2015 ISMAEL UNSPECIFIED YOJANA 19709 ALTERED 06-21-2015 [facility] MENTAL MEDICAL STATUS IMAGING ASS 7862 COUGH 06-21-2015 [facility] V1079 PERSONAL HX 06-21-2015 [facility] OTH YOJANA LYMPHATIC&H EMATOPOIETI C NEOPLASM V1254 PERSONAL HX 06-21-2015 IS[facility]EL TIA & CI YOJANA W/O RESIDUAL DEFICITS 5990 URINARY 06-12-2015 [facility] TRACT PHYSICIANS INFECTION LA SITE NOT SPECIFIED 47369 OTH & UNS E 05-28-2015 [facility] COLI [facility] INFECTION INC CLASS ELSW UNS SITE 66541 UNSPECIFIED 05-24-2015 [place] [address] GENERALIZED 05-24-2015 ISMAEL YOJANA OSTEOARTHRO SIS UNSPECIFIED SITE 7213 LUMBOSACRAL 05-24-2015 ISMAEL YOJANA SPONDYLOSIS WITHOUT MYELOPATHY V8534 BODY MASS 05-24-2015 ISMAEL INDEX YOJANA 34.0-34.9 ADULT 29846 ABDOMINAL 04-15-2015 [facility] PAIN RIGHT PHYSICIANS LOWER GROUP QUADRANT 18533 PAIN IN 03-26-2015 [facility] JOINT, MEM HOS[facility] SHOULDER INC REGION 29271 DIARRHEA 03-26-2015 [facility] INC 71586 OTH MALIG 03-01-2015 [facility] LYMPHOMAS MEDICAL UNS SITE IMAGING ASS XTRANOD&SEBAS ID ORGN 5932 ACQUIRED 03-01-2015 [facility] CYST OF MEDICAL KIDNEY IMAGING ASS 20465 ABDOMINAL 03-01-2015 [facility] PAIN, LEFT [facility] LOWER INC QUADRANT 20019 ESOPHAGEAL 01-30-2015 [facility] REFLUX PHYS SURG CTR 25080 GASTR ULCR 01-30-2015 [facility] UNS PHYS SURG ACUT/CHRN CTR W/O HEMOR PERF/OBST 5379 UNSPECIFIED 01-30-2015 [facility] DISORDER [facility] & OF STOMACH DUBILIER AND DUODENUM 63372 NAUSEA 01-30-2015 [facility] ALONE [facility] ANESTHESIA 70243 ABDOMINAL 01-30-2015 [facility] PAIN, [facility] EPIGASTRIC ANESTHESIA 46369 NONEXUDATIV 01-29-2015 [facility] 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 84885 REGULAR 01-29-2015 [facility] ASTIGMATISM [facility] IN[facility] 77640 OTHER 01-25-2015 [facility] SPECIFIED YOJANA ERYTHEMATOU S CONDITION OTHER 460 ACUTE 12-19-2014 ISMA[facility] NASOPHARYNG YOJANA ITIS 36700 ASTHMA, 12-19-2014 [facility] UNSPECIFIED YOJANA , UNSPECIFIED STATUS 4660 ACUTE 12-16-2014 [facility] BRONCHITIS [facility] INC V8535 BODY MASS 12-07-2014 [facility] INDEX YOJANA 35.0-35.9 ADULT 4779 ALLERGIC 10-30-2014 ISMAEL RHINITIS YOJANA CAUSE UNSPECIFIED 4019 UNSPECIFIED 10-18-2014 [facility] ESSENTIAL [facility] HYPERTENSIO INC N 84381 COR 10-18-2014 [facility] ATHEROSLERO [facility] UNSPEC INC TYPE VESSEL NANSE[facility] TRIBE/MORRO T 02288 CHEST PAIN 10-18-2014 [place] [facility] UNSPECIFIED SERV FOUNDATION 94906 CORONARY 10-11-2014 [facility] OSIS [place] MEDICAL G CORONARY ARTERY 7851 PALPITATION 10-11-2014 [facility] MEDICAL G 43916 PRECORDIAL 10-11-2014 [facility] MEDICAL G 4610 ACUTE 10-01-2014 ISMAEL MAXILLARY YOJANA SINUSITIS 4720 CHRONIC 10-01-2014 ISMAEL RHINITIS YOJANA 7881 DYSURIA 10-01-2014 ISMAEL YOJANA 51144 SHORTNESS 09-18-2014 [facility] MEDICAL IMAGING ASS 4139 OTHER AND 09-12-2014 [facility] UNSPECIFIED MEM HOSP ANGINA INC PECTORIS 5758 OTHER 09-12-2014 [facility] SPECIFIED [facility] DISORDER OF INC GALLBLADDER 43220 OTHER 09-12-2014 [facility] CONVULSIONS [facility] INC 96097 OTHER CHEST 09-12-2014 [facility] EMERGENCY PHYS V140 PERSONAL 09-12-[address] [facility] ALLERGY TO [facility] P PENICILLIN V148 PERSONAL 09-12-[address] [facility] ALLERGY [facility] P SPEC MEDICINAL AGTS V1582 PERS HX 09-12-2014 [facility] TOBACCO USE [facility] PRESENTING INC HAZARDS HEALTH V719 OBSERVATION 09-12-2014 [facility] FOR MEDICAL UNSPECIFIED IMAGING ASS SUSPECTED CONDITION 84484 UNSPEC 08-28-2014 IS[facility] DISORDERS YOJANA BURSAE&TEND ONS SHOULDER REGION 76069 CONTUSION 08-28-2014 IS[facility]EL OF SHOULDER YOJANA REGION E8889 UNSPECIFIED 08-28-2014 ISMAEL FALL [place] V0481 NEED 08-28-2014 [facility] PROPHYLACTI YOJANA C VACCINATION &INOCULATIO N FLU 9592 INJURY 08-19-2014 ST. OTHER&UNSPE JESSE CIFIED PARTHA SHOULDER&UP PER ARM V5869 LONG-TERM 08-19-2014 ST. (CURRENT) JESSE USE OF PARTHA OTHER MEDICATIONS 2767 HYPERPOTASS 08-14-2014 [facility] EMIA YO[place]NA 7291 UNSPECIFIED 08-06-2014 [facility] MYALGIA [place] AND MYOSITIS 7827 SPONTANEOUS 08-06-2014 [facility] ECCHYMOSES [place] 06623 DIVERTICULI 07-24-2014 IS[facility] TIS OF YOJANA COLON 7243 SCIATICA 07-16-2014 [facility] 5693 HEMORRHAGE 05-21-2014 ISMAEL OF RECTUM YOJANA AND ANUS 7802 SYNCOPE AND 05-21-2014 [facility] COLLAPSE YOJANA 5589 OTH&UNSPEC 05-09-2014 [facility] NONINFECTIO [facility] P GASTROENTER ITIS&COLITI S 34310 NAUSEA WITH 05-09-2014 TOPPING VOMITING [facility] P E9390 ANTIDEPTSSN 05-09-2014 [facility] T CAUS [facility] P EFFECT THERAPEUTIC USE 52384 OTHER 05-08-2014 [facility] SPECIFIED N EMERGENCY CARDIAC PHYS DYSRHYTHMIA S 5789 UNSPECIFIED 05-08-2014 ISMAEL HEMORRHAGE YOJANA OF GASTROINTES TINAL TRACT 7852 UNDIAGNOSED 05-08-2014 [facility] CARDIAC SERV MURMURS FOUNDATIO 496 CHRONIC 03-06-2014 [facility] AIRWAY MEDICAL OBSTRUCTION IMAGING ASS NEC 5110 PLEURISY 03-06-2014 [facility] WITHOUT YOJANA MENTION EFFUS/CURRE NT TB 7197 DIFFICULTY 03-06-2014 [facility] IN WALKING MEDICAL IMAGING ASS 70035 CONTUSION 03-06-2014 ISMAEL OF FOOT YOJANA 8488 OTHER 02-26-2014 [facility] SPECIFIED N EMERGENCY SITES OF PHYS SPRAINS AND STRAINS V141 PERSONAL 02-26-2014 [facility] HOSP ALLERGY INC OTHER ANTIBIOTIC AGENT 65456 UNSPECIFIED 01-26-2014 [facility] VIRAL N EMERGENCY INFECTION PHYS IN CCE & UNS SITE 7245 UNSPECIFIED 01-26-2014 [facility] BACKACHE N EMERGENCY PHYS 0091 COLITIS 01-04-2014 [facility] ENTERIT&GAS HOME TROENTERIT MEDICAL INF ORIGIN EQUIPME 436 ACUTE BUT 01-04-2014 [facility] ILL-DEFINED HOME MEDICAL CEREBROVASC EQUIPME ULAR DISEASE 7231 CERVICALGIA 10-24-2013 [facility] 3674 PRESBYOPIA 07-03-2013 [facility] V431 LENS 07-03-2013 [facility] REPLACED BY EYE OTHER INSTITUTE MEANS 7224 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-30-2013 [facility] [place] 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 63842 MACULAR 04-04-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 WINTER DON N OF RETINA UNSPECIFIED 86720 STRABISMIC 03-22-2013 [place] [facility] AMBLYOPIA SERV FOUNDATIO 92951 OTHER 03-22-2013 [place] [facility] VITREOUS SERV OPACITIES FOUNDATIO 8052 CLOS FX 02-27-2013 ARAMBULA DORS DON VERTEBRA W/O MENTION SP CORD INJURY 05194 LEUKOCYTOSI 02-23-2013 [facility]GENCY UNSPECIFIED SERVICES V5878 AFTERCARE 02-23-2013 [facility] FOLLOW EMERGENCY SURGERY SERVICES [place]ULOSKEL SYSTEM NEC 03235 ACUTE PAIN 02-22-2013 [facility] DUE TO EMERGENCY TRAUMA SERVICES 35842 PATHOLOGIC 02-22-2013 [facility] FRACTURE OF ANESTHESIA VERTEBRAE GROUP PS V7283 OTHER 02-21-2013 [facility] [place] SPECIFIED RADIOLOGY PRE-OPERATI VE EXAMINATION 88178 DISPLCMT 02-20-2013 [facility] LUMBAR MEDICAL INTERVERT IMAGING ASS DISC W/O MYELOPATHY 40296 SPINAL STEN 02-20-2013 [facility] LUMB REG MEDICAL W/O IMAGING ASS NEUROGENIC CLAUDICATIO N E8888 OTHER FALL 02-20-2013 [facility] 6259 UNSPEC 02-15-2013 [facility]TOM [facility]OC IMAGING ASS W/FEMALE GENITAL ORGANS 7840 HEADACHE 02-15-2013 [facility] 8470 NECK SPRAIN 02-15-2013 [facility] 8472 LUMBAR 02-15-2013 [facility] AND [facility]ERGENCY STRAIN SERVICES 8500 CONCUSSION 02-15-2013 [facility] WITH NO EMERGENCY LOSS OF SERVICES CONSCIOUSNE SS 9222 CONTUSION 02-15-2013 [facility] OF EMERGENCY ABDOMINAL SERVICES WALL 98032 CONTUSION 02-15-2013 [facility]IP [facility] INC 06835 HEAD 02-15-2013 [facility] INJURY, MEDICAL UNSPECIFIED IMAGING ASS V4364 HIP JOINT 02-15-2013 [facility] REPLACEMENT MEDICAL BY OTHER IMAGING ASS MEANS 4659 ACUTE URIS 02-13-2013 [facility] OF [facility] UNSPECIFIED SITE 7804 DIZZINESS 02-13-2013 [facility] AND [facility] GIDDINESS 18724 PAIN IN 01-18-2013 [facility] JOINT, [facility] MULTIPLE INC SITES 45572 PAIN IN 01-17-2013 [facility], DON LOWER LEG 9597 INJURY 01-17-2013 [facility] OTHER&UNSPE DON CIFIED KNEE LEG ANKLE&FOOT 86085 UNSPECIFIED 12-27-2012 [place] [address] METHICILLIN 12-23-2012 [facility] RESISTANT [facility] STAPHYLOCOC INC CUS AUREUS 38305 OTHER 12-23-2012 [facility] DISEASES OF [facility] NASAL INC CAVITY AND SINUSES 81482 NASAL 12-06-2012 [facility] MUCOSITIS DON ULCERATIVE 7078 CHRONIC 12-06-2012 [facility] ULCER OF [facility] OTHER INC SPECIFIED SITE 3804 IMPACTED 08-03-2012 [facility] CERUMEN [place] 78458 CHRONIC 08-03-2012 [facility] FATIGUE DON SYNDROME 34916 OTHER 06-22-2012 [facility] CHRONIC DON PAIN 7873 FLATULENCE 06-17-2012 [facility] ERUCTATION DON AND GAS PAIN 41149 OTHER 06-03-2012 [facility] SPECIFIED DON TYPES OF CYSTITIS 4293 CARDIOMEGAL 05-14-2012 [facility] MEDICAL IM[facility] ASS 27807 NONSPECIFIC 05-14-2012 [facility]ROCARD [facility] IOGRAM V1090 PERSONAL 05-14-2012 [facility] HISTORY MEDICAL UNSPECIFIED IMAGING ASS MALIGNANT NEOPLASM V711 OBSERVATION 05-14-2012 [facility] FOR MEDICAL SUSPECTED IMAGING ASS MALIGNANT NEOPLASM OTHER 04-28-2012 [facility] SPLEEN 3898 OTHER 02-17-2012 [facility] SPECIFIED DON FORMS OF HEARING LOSS 83584 GASTROJEJ 02-17-2012 [facility] ULCR UNS DON ACUT/CHRN W/O HEMOR PERF/OBST 27800 PAIN IN 01-06-2012 [facility], SITE [facility] INC UNSPECIFIED 6160 CERVICITIS 12-16-2011 [facility] AND MEDICAL ENDOCERVICI IMAGING ASS TIS 6203 ACQUIRED 12-16-2011 [facility] ATROPHY OF MEDICAL OVARY AND IMAGING ASS FALLOPIAN TUBE 6219 UNSPECIFIED 12-16-2011 [facility] DISORDER MEDICAL OF UTERUS IMAGING ASS 89643 OSTEOARTHRO 12-11-2011 [facility] S INVLV MX DON [place] [address] HEMATURIA 11-30-2011 [facility] UNSPECIFIED DON 79026 OTHER 11-30-2011 [facility] SPECIFIED DON DISORDERS OF URINARY TRACT 62881 UNSPECIFIED 10-19-2011 [facility] OTALGIA DON 98065 MUSCLE 10-19-2011 [facility] WEAKNESS DON (GENERALIZE D) 00154 DIVERTICULO 07-22-2011 [facility] SIS OF DON COLON 1104 DERMATOPHYT 07-10-2011 [facility] OSIS OF FOOT 9168 OTH&UNS SUP 07-07-2011 [facility] INJR HIP DON THI LEG&ANK W/O MENTION INF 9190 ABRASION/FR 06-26-2011 [facility] OTH MX&UNS SERVICES SITE W/O INF 5950 ACUTE 05-28-2011 NEW CYSTITIS [facility] 6929 CONTACT 05-22-2011 [facility] DERMATITIS& OTHER ECZEMA DUE UNSPEC CAUSE 7011 ACQUIRED 05-22-2011 [facility] KERATODERMA 11741 OTHER 04-20-2011 [facility] SPECIFIED DON CIRCULATORY SYSTEM DISORDERS 99293 CONTUSION 04-20-2011 [facility] MULTIPLE DON SITES SHOULDER&UP PER ARM 5952 OTHER 02-05-2011 [facility] CYSTITIS [facility] P 1129 CANDIDIASIS 01-07-2011 [facility] OF DON UNSPECIFIED SITE 4280 CONGESTIVE 01-07-2011 [facility] HEART DON FAILURE UNSPECIFIED 2768 HYPOPOTASSE 12-31-2010 [facility] HOSP INC 8910 OPEN WOUND 10-22-2010 [facility] KNEE DON LEG&ANK WITHOUT MENTION COMP V5832 ENCOUNTER 10-22-2010 [facility] FOR REMOVAL DON OF SUTURES 78680 PHACOLYTIC 08-06-2010 [facility] 4618 OTHER ACUTE 07-29-2010 [facility] SINUSITIS DON 1880 MALIGNANT 06-26-2010 [facility] NEOPLASM OF H UROLOGY [facility] OF [facility] URINARY BLADDER 35273 SPASM OF 06-06-2010 [facility] MUSCLE DON 88361 DEGEN 05-04-2010 [facility] LUMBAR/LUMB EMERGENCY OSACRAL SERVICES [facility] RAL DISC OTHER MALIG 04-22-2010 NEW LYMPHOMAS [facility] LYMPH NODES [facility] MULTIPLE SITES V6709 FOLLOW-UP 01-17-2010 [facility] EXAMINATION AND HAND FOLLOWING SURGEONS OTHER [facility] SURGERY 6256 FEMALE 01-13-2010 [facility], STRESS DON R INCONTINENC E V7651 SPECIAL 01-13-2010 [facility], SCREENING DON R FOR MALIGNANT NEOPLASMS COLON 1629 MALIGNANT 09-09-2009 [facility] NEOPLASM [facility] UNSPEC [facility]OC[facility]ATES SITE 4148 OTHER SPEC 08-30-2009 [facility], FORMS DON R CHRONIC ISCHEMIC HEART DISEASE 8208 CLOSED 08-30-2009 [facility], FRACTURE DON R UNSPECIFIED PART NECK FEMUR 23406 POSTPROCEDU 08-21-2009 [facility] PROF SERV 82414 OTHER 08-20-2009 PATHOLOGY & CLOSED CYTOLOGY TRANSCERVIC LAB AL FRACTURE OF FEMUR 40193 INF DUE OTH 08-19-2009 [facility] GM-NEGATIVE INC ORGANISMS CCE & UNS SITE 67529 ABDOMINAL 08-19-2009 [facility] PAIN OTHER EMERGENCY SPECIFIED SERVICES SITE ASSOCIATES 95743 CLOSED 08-19-2009 [facility] DISLOCATION AMB[facility]ANCE OF HIP SERVICE UNSPECIFIED SITE 9596 INJURY 08-19-2009 [facility] OTHER AND AMBULANCE UNSPECIFIED SERVICE HIP AND THIGH E8859 FALL FROM 08-19-2009 [facility] OTHER EMERGENCY SLIPPING SERVICES TRIPPING OR ASSOCIATES STUMBLING 84293 UNSPECIFIED 08-14-2009 [facility] OPACITY F[facility] V0382 NEED PROPH 07-31-2009 [facility], VACCINATION DON R AGAINST STREP PNEUMONE 52770 SPRAIN AND 06-10-2009 [facility], STRAIN OF DON R UNSPECIFIED SITE OF WRIST 05899 UNSPECIFIED 06-10-2009 [facility], SITE OF DON R ANKLE SPRAIN AND STRAIN E8490 PLACE OF 06-07-2009 [facility] OCCURRENCE, [facility] E8844 ACCIDENTAL 06-07-2009 [facility] FALL FROM [facility]ENCY [facility]ED [facility] 36272 SECONDARY 09-19-2008 [facility] EDEMA F[facility] 68752 SPONDYLOSIS 08-22-2008 NEW UNSPEC [facility] SITE W/O CLINIC PSC MENTION MYELOPATHY V1072 PERSONAL 08-22-2008 NEW HISTORY OF [facility] PSC DISEASE 22096 ATRIAL 07-01-2008 [facility] N 75561 ABDOMINAL/P 07-01-[facility]LUMP UNSPEC SITE 06828 UNSPECIFIED 03-02-2008 REM[facility] R OSTEOPOROSI S Immunization Name Date Rout CVX Reac Dose Comm Prov Is Faci e tion ent ider Refu lity Give sed n IIV3 - 141 STEP No STEP 1-20 HENS HENS VACC 10 DON INE SPLI T VIRU DON S 0.5 ML DOSA GE IM USE IIV3 - 141 STEP No STEP 3-20 HENS HENS VACC 09 , , INE DON DON SPLI R R T VIRU S 0.5 ML DOSA GE IM USE PPSV - 33 STEP No STEP 23 3-20 HENS HENS VACC 09 , , INE DON DON 2 R R YRS OR OLDE R FOR SUBQ /IM USE IIV3 10- 141 STEP No STEP 7-20 HENS HENS VACC 08 , , INE DON DON SPLI R R T VIRU S 0.5 ML DOSA SingleHop IM USE Procedures Procedure DOS Code Location Performer Comment URNLS DIP [address] 7 [facility] STICK/TAB PARTHA PARTHA LET REAGENT AUTO MICROSCOP Y BASIC [address] METABOLIC 7 [facility] PANEL [place] [address] HEAD/BRAI 7 [facility] N W/O PARTHA PARTHA CONTRAST MATERIAL RADIOLOGI [address] C 7 [facility] EXAMINATI PARTHA PARTHA ON CHEST SINGLE VIEW FRONTAL CULTURE [address] BACTERIAL 7 [facility] PARTHA PARTHA QUANTTATI VE COLONY COUNT URINE RADEX [address] HUMERUS 7 [facility] MINIMUM 2 PARTHA PARTHA VIEWS ECG [address] ROUTINE 7 [facility] ECG PARTHA PARTHA W/LEAST 12 LDS TRCG ONLY W/O I&R COLLECTIO [address] [facility] N VENOUS 7 [facility] BLOOD PARTHA PARTHA VENIPUNCT URE BLOOD [address] COUNT 7 [facility] COMPLETE PARTHA PARTHA AUTO&AUTO DIFRNTL WBC BASIC 15457 [facility] PANEL INC INC CALCIUM TOTAL BASIC [address] [facility] METABOLIC 7 [facility] PANEL INC INC CALCIUM TOTAL BLOOD [address] [facility] COUNT 7 [facility] COMPLETE INC INC AUTO&AUTO DIFRNTL WBC NEBULIZER E0570 MICHELLE MARTINEZ WITH 7 HOME HOME COMPRESSO MEDICAL MEDICAL R EQUIPME EQUIPME RADIOLOGI 01256 [facility] EXAM 7 MEDICAL CHEST 2 IMAGING VIEWS ASS FRONTAL&L ATERAL ECG 96572 [facility] ROUTINE 7 PHYSICIAN ECG S GROUP W/LEAST 12 LDS I&R ONLY ECG [address] 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 PM ECG 72761 [facility] ROUTINE 7 [facility] ECG INC INC W/LEAST 12 LDS TRCG ONLY W/O I&R ECG 11974 [facility] ROUTINE 7 PHYSICIAN ECG S GROUP W/LEAST 12 LDS I&R ONLY DUP-SCAN 56364 [facility] SALVADOR XTR VEINS 7 MEDICAL IMAGING UNILATERA ASS L/LIMITED STUDY COLLECTIO 76962 [facility] N VENOUS 7 [facility] BLOOD INC INC VENIPUNCT [facility] G0378 [facility] OBSERVATI 7 [facility] ON INC INC SERVICE PER HOUR NONINVASI 17832 [facility] VE 7 [facility] EAR/PULSE INC INC OXIMETRY SINGLE DETER BLOOD 39291 [facility] COUNT 7 [facility] COMPLETE INC INC AUTO&AUTO DIFRNTL WBC BASIC 59816 [facility] METABOLIC 7 [facility] PANEL INC INC CALCIUM TOTAL BASIC 26777 [facility] METABOLIC 7 [facility] [place] [address] [facility] NEW/RPLC 7 [facility] PRM INC INC PACEMAKER W/TRANSV ELTRD VENTR RADIOLOGI 32340 [facility] C 7 [facility] EXAMINATI INC INC ON CHEST SINGLE VIEW FRONTAL BLOOD 13485 [facility] COUNT 7 [facility] COMPLETE INC INC AUTO&AUTO DIFRNTL WBC PACEMAKER C1785 [facility] DUAL 7 [facility] CHAMBER INC INC RATE-RESP ONSIVE PRESSURIZ 92313 [facility] ED/NONPRE 7 [facility] SSURIZED [place] [address] [facility] INFUSION 7 [facility] THERAPY/P INC INC ROPHYLAXI S /DX 1ST TO 1 HR THERAPEUT 05944 [facility] IC 7 [facility] INJECTION INC INC IV PUSH EACH NEW DRUG ECG 74383 [facility] ROUTINE 7 PHYSICIAN ECG S GROUP W/LEAST 12 LDS I&R ONLY HOSPITAL G0378 [facility] OBSERVATI 7 [facility] ON INC INC SERVICE PER HOUR ANES 72879 [facility] PERMANENT 7 ANESTH OF THE TRANSVENO BLUE US PACEMAKER INSERTION LEAD C1898 [facility] PACEMKR 7 [facility] OTH THAN INC INC TRNS VDD SINGLE PASS ECG 88277 [facility] ROUTINE 7 [facility] ECG INC INC W/LEAST 12 LDS TRCG ONLY W/O I&R CREATININ 75471 [facility] E BLOOD 7 [facility] [place] [address] [facility] UREA 7 [facility] NITROGEN INC INC QUANTITAT RIGO COLLECTIO 23071 [facility] N VENOUS 7 [facility] BLOOD INC INC VENIPUNCT URE CT THORAX 46718 [facility] ZACH 7 MEDICAL W/CONTRAS IMAGING T ASS MATERIAL LOC Q9967 [facility] [phone] [facility] MG/ML INC INC IODINE CONCENTRA TION PER ML ECG 02367 [facility] ROUTINE 7 [facility] ECG INC INC W/LEAST 12 LDS TRCG ONLY W/O I&R ECG 56463 [facility] ROUTINE 7 PHYSICIAN ECG S GROUP W/LEAST 12 LDS I&R ONLY CV STRS 79980 [facility] TST 7 [facility] XERS&/OR INC INC RX CONT ECG TRCG ONLY INJECTION J2785 [facility] 7 [facility] REGADENOS INC INC ON 0.1 MG MYOCARDIA 43812 [facility] L SPECT 7 [facility] MULTIPLE INC INC STUDIES TECHNETIU A9502 [facility] Hernandez TC-99M 7 [facility] TETROFOSM INC INC IN DX PER STUDY DOSE ECG 97982 [facility] ROUTINE 7 [facility] ECG INC INC W/LEAST 12 LDS TRCG ONLY W/O I&R ECG 88010 [facility] OMARI ROUTINE 7 [facility] ECG INC INC W/LEAST 12 LDS TRCG ONLY W/O I&R ECG 91999 [facility] ROUTINE 7 PHYSICIAN ECG S GROUP W/LEAST 12 LDS I&R ONLY XTRNL ECG 63490 [facility] & 48 HR 7 [facility] RECORDING INC INC ECHO 86824 [facility] SALCIDO TTHRC R-T 7 [facility] 2D INC INC W/WOM-MOD E COMPL SPEC&COLR D ECG 33419 [facility] ROUTINE 7 PHYSICIAN ECG S GROUP W/LEAST 12 LDS I&R ONLY ECG 50414 [facility] ROUTINE 7 [facility] ECG INC INC W/LEAST 12 LDS TRCG ONLY W/O I&R ECG 37461 [facility] ROUTINE 7 [facility] ECG INC INC W/LEAST 12 LDS TRCG ONLY W/O I&R ECG 33540 [facility] GUEVARA JR ROUTINE 7 [facility] W/LEAST P 12 LDS I&R ONLY RADIOLOGI 09947 [facility] C EXAM 7 [facility] CHEST 2 INC INC VIEWS FRONTAL&L ATERAL RADEX 08672 [facility] SPINE 7 MEDICAL CERVICAL IMAGING 4 OR 5 ASS VIEWS BLOOD 22571 [facility] COUNT 7 [facility] COMPLETE INC INC AUTO&AUTO DIFRNTL WBC BASIC 48833 [facility] METABOLIC 7 [facility] PANEL INC INC CALCIUM TOTAL CT PELVIS 53814 [facility] W/O 7 [facility] CONTRAST INC INC MATERIAL CT LOWER 48251 [facility] SALVADOR EXTREMITY 7 MEDICAL W/O IMAGING CONTRAST ASS MATERIAL INJECTION J1100 SIMAEL GUEVARA JR 7 DEXAMETHO SONE SODIUM PHOSPHATE 1 MG COMPRE 35757 [place] [facility] AUDIOMETR 6 NOSE AND CLARY Y THROAT THRESHOLD EVAL SP RECOGNIJ TYMPANOME 30527 [place] [facility] TRY 6 NOSE AND CLARY THROAT BASIC 18442 COMBINED COMBINED METABOLIC 6 PHYSICIAN PHYSICIAN PANEL S LA S LA CALCIUM TOTAL BLOOD 21413 COMBINED COMBINED COUNT 6 PHYSICIAN PHYSICIAN COMPLETE S LA S LA AUTO&AUTO DIFRNTL WBC SMR PRIM 06555 [facility] SRC 6 [facility] GRAM/GIEM INC INC SA STAIN BCT FUNGI/YAMILKA L CELL 47043 [facility]O COUNT 6 [facility] MISC BODY INC INC FLUIDS W/[place] [address] [facility]O SURG 6 [facility] PATHOLOGY INC INC GROSS&SAJAN ROSCOPIC EXAM CYTP EVAL 66010 [facility] SAL[facility] FINE 6 [facility] NEEDLE INC INC ASPIRATE INTERP & [place] [address] [facility] SALCIDO EXTREMITY 6 [facility] NON-VASC INC INC REAL-TIME IMG LMTD BIOPSY 43791 [facility] SOFT 6 [facility] TISSUE INC INC PELVIS&[place] [address] [facility] GUIDANCE 6 [facility] NEEDLE INC INC PLACEMENT IMG S&I CUL BACT 48076 [facility] XCPT 6 [facility] URINE INC INC BLOOD/STO OL AEROBIC ISOL ARTHROCEN 04366 [facility] ZACH KAHLIL 6 MEDICAL LATRELL ASPIR&/IN IMAGING J MAJOR ASS JT/BURSA W/US RADEX HIP 23822 [facility] SALVADOR ALL 6 MEDICAL UNILATERA IMAGING L WITH ASS PELVIS 1 VIEW AMBULANCE A0428 [facility] SERVICE 6 AMBULANCE AMBULANCE BLS SERVICE SERVICE NONEMERGE [facility] TRANSPORT GROUND A0425 [facility] MILEAGE 6 AMBULANCE AMBULANCE PER SERVICE SERVICE STATUTE MILE RADIOLOGI 34969 [facility] ZACH C 6 MEDICAL LATRELL EXAMINATI IMAGING ON CHEST ASS SINGLE VIEW FRONTAL RADIOLOGI 58264 [facility] TYLER C 6 MEDICAL ANGELIKA EXAMINATI IMAGING ON CHEST ASS SINGLE VIEW FRONTAL AMB A0427 [facility] SERVICE 6 AMBULANCE AMBULANCE ALS SERVICE SERVICE EMERGENCY TRANSPORT LEVEL 1 OPTX FEM 15835 [facility] FX PROX 6 PHYSICIAN JAM END NCK S GROUP INT FIXJ/PROS TC RPLCMT RADIOLOGI 75105 [facility] ABHILASH C 6 MEDICAL ANGELIKA EXAMINATI IMAGING ON FEMUR ASS MINIMUM 2 VIEWS ANESTHESI 60245 [facility] OPEN 6 ANESTH RAMO PROCEDURE OF THE S UPPER BLUE 2/3 FEMUR NOS GROUND A0425 [facility] MILEAGE 6 AMBULANCE AMBULANCE PER SERVICE SERVICE STATUTE MILE RADEX HIP 28048 [facility] 6 MEDICAL ANGELIKA UNILATERA IMAGING L WITH ASS PELVIS 2-3 VIEWS ECG 01317 [facility] ROGER ROUTINE 6 [facility] W/LEAST P 12 LDS I&R ONLY REPLACEME [id number] O[facility]I SALCIDO NT LT HIP 6 [facility] JOINT INC INC CERAMIC POLY SYNTH OPEN RADIOLOGI 80987 MAINE MADELEINE ALL C 6 MEDICAL EXAMINATI IMAGING ON CHEST ASS SINGLE VIEW FRONTAL ANES 38869 [facility] LOWER 6 ANESTH SHE INTESTINE OF THE BLUE ENDOSCOPY DISTAL DUODENUM URNLS DIP 77957 ISMAEL GUEVARA JR 6 YOJANA DWI STICK/TAB LET RGNT NON-AUTO W/[place] [address] [facility] SAL[facility] ALL ABDOMEN & 6 MEDICAL PELVIS IMAGING W/O ASS CONTRAST MATERIAL INJECTION J1100 ISMAEL GUEVARA JR 6 YOJANA DWI DEXAMETHO SONE SODIUM PHOSPHATE 1 MG RADIOLOGI 99359 [facility] C EXAM 6 MEDICAL ANGELIKA CHEST 2 IMAGING VIEWS ASS FRONTAL&L ATERAL INJECTION J1030 ISMAEL GUEVARA JR 6 YOJANA DWI METHYLPRE DNISOLONE ACETATE 40 MG BASIC 44830 [facility] METABOLIC 6 [facility] PANEL INC INC CALCIUM TOTAL BLOOD 50056 [facility] SAL[facility]O COUNT 6 [facility] COMPLETE INC INC AUTO&AUTO DIFRNTL WBC COLLECTIO 30503 [facility] SALC[facility] N VENOUS 6 [facility] BLOOD INC INC VENIPUNCT URE CYANOCOBA 87015 COMBINED COMBINED JEWEL 5 PHYSICIAN PHYSICIAN VITAMIN S LA S LA B-12 BLOOD 96582 COMBINED COMBINED COUNT 5 PHYSICIAN PHYSICIAN COMPLETE S LA S LA AUTO&AUTO DIFRNTL WBC BASIC 92585 [facility] COMBINED METABOLIC 5 PHYSICIAN PHYSICIAN PANEL S LA S LA CALCIUM TOTAL URNLS DIP 76986 ISMAEL GUEVARA JR 5 [place] DWI STICK/TAB LET RGNT NON-AUTO W/O MICRSCP INFLUENZA Q2038 ISMAEL GUEVARA JR VACC 5 [facility] DWI SPLIT VIRUS 3 YRS & > IM FLUZONE ADMINISTR G0008 ISMAEL GUEVARA JR ATION OF 5 YOJANA DWI INFLUENZA VIRUS VACCINE COLLECTIO 46061 [facility] N VENOUS 5 [facility] BLOOD INC INC VENIPUNCT URE BLOOD 72755 [facility] SAL[facility]O COUNT 5 [facility] COMPLETE INC INC AUTO&AUTO DIFRNTL WBC RADEX HIP 57977 [facility] SAL[facility]O 5 [facility]OS[facility] UNILATERA INC INC L COMPLETE MINIMUM 2 VIEWS RADEX HIP 79879 [facility] ALL 5 MEDICAL UNILATERA IMAGING L 1 VIEW ASS BASIC 93886 [facility] SALCIDO METABOLIC 5 [facility] PANEL INC INC CALCIUM TOTAL GROUND A0425 NARINDER NARINDER MILEAGE 5 CO CO PER AMBULANCE AMBULANCE STATUTE TAXIN TAXIN MILE AMB A0427 NARINDER NARINDER SERVICE 5 CO CO ALS AMBULANCE AMBULANCE EMERGENCY TAXIN TAXIN TRANSPORT LEVEL 1 BASIC 41639 COMBINED COMBINED METABOLIC 5 PHYSICIAN PHYSICIAN PANEL S LA S LA CALCIUM TOTAL BLOOD 05804 COMBINED COMBINED COUNT 5 PHYSICIAN PHYSICIAN COMPLETE S LA S LA AUTO&AUTO DIFRNTL WBC COLLECTIO 60897 ISMAEL GUEVARA JR N VENOUS 5 [facility] DWI BLOOD VENIPUNCT URE DUP-SCAN 20329 [facility] SALVADOR ALL XTR VEINS 5 MEDICAL IMAGING UNILATERA ASS L/LIMITED STUDY OBSERVATI 24233 ISMAEL GUEVARA JR ON CARE 5 YOJANA DWI DISCHARGE MANAGEMEN T SBSQ 57726 ISMAEL GUEVARA JR OBSERVATI 5 YO[facility]NA DWI ON CARE/DAY 25 MINUTES INITIAL 52422 ISMAEL GUEVARA JR OBSERVATI 5 Y[facility]JANA DWI ON CARE/DAY [address] [place] [address] L[facility] SALVADOR ALL HEAD/BRAI 5 MEDICAL N W/O IMAGING CONTRAST ASS MATERIAL RADIOLOGI 47715 L[facility] SALVADOR ALL C EXAM 5 MEDICAL CHEST 2 IMAGING VIEWS ASS FRONTAL&L ATERAL URNLS DIP 97663 COMBINED COMBINED 5 PHYSICIAN PHYSICIAN STICK/TAB S LA S LA LET REAGENT AUTO MICROSCOP Y INJECTION J1335 [facility] 5 [facility] ERTAPENEM INC INC SODIUM 500 MG THERAPEUT 22493 [facility] IC 5 [facility] PROPHYLAC INC INC TIC/DX INJECTION SUBQ/IM INJECTION J1100 ISMAEL GUEVARA JR 5 YOJANA DWI DEXAMETHO SONE SODIUM PHOSPHATE 1 MG SUSCEPTIB 15438 [facility] LTY STDY 5 [facility] ANTIMICRB INC INC IAL MICRO/AGA R DILUTJ CULTURE 70815 [facility] BCT 5 [facility] ISOL&PRSM INC INC PTV ID ISOLATE EA URINE CULTURE 18037 [facility] BACTERIAL 5 [facility] INC INC QUANTTATI VE COLONY COUNT URINE URNLS DIP 13867 ISMAEL GUEVARA JR 5 [place] DWI STICK/TAB LET RGNT NON-AUTO W/O MICRSCP BASIC 42394 [facility] METABOLIC 5 [facility] PANEL INC INC CALCIUM TOTAL BLOOD 22633 [facility] COUNT 5 [facility] HEMATOCRI INC INC T IADNA-DNA 94971 [facility] /RNA GI 5 [facility] PTHGN INC INC MULTIPLEX PROBE TQ 11-[address] [place] [address] [facility] & 5 MEDICAL LATRELL PELVIS IMAGING W/O ASS CONTRAST MATERIAL CREATININ 91581 [facility]O E BLOOD 5 [facility] INC INC COLLECTIO 31169 [facility] N VENOUS 5 [facility] [place] [address] [facility] SALCIDO UREA 5 [facility] NITROGEN INC INC QUANTITAT RIGO CULTURE 07831 [facility] BACTERIAL 5 [facility] INC INC QUANTTATI VE COLONY COUNT URINE ANES 62043 [facility] UPPER GI 5 [facility] ENDOSCOPY ANESTHESI [place]OX[place]AL [place]GD 45623 SABIANISM SABIANISM TRANSORAL 5 PHYS SURG PHYS SURG BIOPSY CTR CTR SINGLE/MU LTIPLE SPECIAL 35886 CHIPPS MANUELA STAIN 5 EMMA & ORTEGA GROUP 1 DUBILIER MICROOR[place] NISMS I&[place] [address] CHIPPS MANUELA SURG 5 EMMA & ORTEGA PATHOLOGY DUBILIER GROSS&SAJAN ROSCOPIC EXAM DETERMINA 43529 [facility] CLAUDETTE TION 5 [facility]YE [facility] OPHTH 04413 [facility] [employer] MEDICAL 5 EYE ORTEGA XM&EVAL INSTITUTE COMPRHNSV ESTAB PT 1/> FUNDUS 73362 [facility] CLAUDETTE PHOTOGRAP 5 EYE [facility] HY INSTITUTE W/INTERPR ETATION & REPORT URNLS DIP 33619 ISMAEL GUEVARA JR 5 YOJANA DWI STICK/TAB LET RGNT NON-AUTO W/O MICRSCP CULTURE 08828 [facility] BACTERIAL 5 [facility] INC INC QUANTTATI VE COLONY COUNT URINE CULTURE 44319 [facility] SAL[facility]O BCT 5 [facility] ISOL&PRSM INC INC PTV ID ISOLATE EA URINE SUSCEPTIB 06576 [facility] LTY STDY 5 [facility] ANTIMICRB INC INC IAL MICRO/AGA R DILUTJ INJECTION J1040 ISMAEL GUEVARA JR 5 YOJANA DWI METHYLPRE DNISOLONE ACETATE 80 MG THERAPEUT 81029 ISMAEL GUEVARA JR IC 5 YOJANA DWI PROPHYLAC TIC/DX INJECTION SUBQ/IM THER 82521 [facility] SALCIDO PROPH/DX 5 [facility] NJX IV INC INC PUSH SINGLE/1S T SBST/DRUG IAADI 69212 [facility] INFLUENZA 5 [facility] B VIRUS INC INC IAADI 17994 OMARI SALCIDO INFFLUENZ 5 [facility] A A VIRUS INC INC CULTURE 26790 OMARI SALCIDO BACTERIAL 5 [facility] BLOOD INC INC AEROBIC W/ID ISOLATES BLOOD 09358 OMARI SALCIDO COUNT 5 [facility] COMPLETE INC INC AUTO&AUTO DIFRNTL WBC INJECTION J2405 O[facility]I OMARI 5 [facility] ONDANSETR INC INC ON HCL PER 1 MG RADIOLOGI 23200 LORAINE Alcala 5 MEDICAL LATRELL EXAMINATI IMAGING ON CHEST ASS SINGLE VIEW FRONTAL COMPREHEN 24480 OMARI SALCIDO SIVE 5 [facility] METABOLIC INC INC PANEL URNLS DIP 50314 OMARI SALCIDO 5 [facility] STICK/TAB INC INC LET REAGENT AUTO MICROSCOP Y URNLS DIP 86519 ISMAEL ISMAEL JR 5 YO[place]NA DWI STICK/TAB LET RGNT NON-AUTO W/O MICRSCP CULTURE 14071 OMARI SALCIDO BACTERIAL 5 [facility] INC INC QUANTTATI VE COLONY COUNT URINE INJECTION J1100 ISMAEL GUEVARA 4 YOJANA YOJANA DEXAMETHO SONE SODIUM PHOSPHATE 1 MG THERAPEUT 64392 ISMAEL ISMAEL JR IC 4 YOJANA DWI PROPHYLAC TIC/DX INJECTION SUBQ/IM THERAPEUT 99314 ISMAEL ISMAEL JR IC 4 YO[place]NA DWI PROPHYLAC TIC/DX INJECTION SUBQ/IM INJECTION J1030 ISMAEL ISMAEL JR 4 [place] DWI METHYLPRE DNISOLONE ACETATE 40 MG ECHO 73590 OMARI SALCIDO TTHRC R-T 4 [facility] 2D INC INC W/WOM-MOD E COMPL SPEC&COLR D THERAPEUT 92985 ISMAEL ISMAEL JR IC 4 YOJANA DWI PROPHYLAC TIC/DX INJECTION SUBQ/IM INJECTION J1100 ISMAEL ISMAEL JR 4 [place] DWI DEXAMETHO SONE SODIUM PHOSPHATE 1 MG URNLS DIP 82971 ISMAEL ISMAEL JR 4 [place] DWI STICK/TAB LET RGNT NON-AUTO W/O MICRSCP MYOCARDIA 48370 OMARI [place] SPECT 4 [facility] MULTIPLE INC INC STUDIES TECHNETIU A9500 OMARI Hernandez TC-99M 4 [facility] SESTAMIBI INC INC DX PER STUDY DOSE CV STRS 90839 OMARI GUEVARA JR TST 4 [facility] XERS&/OR HOSPITAL RX CONT P ECG I&R ONLY INJECTION J2785 OMARI SALCIDO 4 [facility] REGADENOS INC INC ON 0.1 MG CV STRS 15024 OMARI SALCIDO TST 4 [facility] XERS&/OR INC INC RX CONT ECG TRCG ONLY ECG 60199 OMARI SALCIDO ROUTINE 4 [facility] ECG INC INC W/LEAST 12 LDS TRCG ONLY W/O I&R CREATINE 14579 OMARI SALCIDO KINASE 4 [facility] TOTAL INC INC ECG 23447 OMARI GUEVARA JR ROUTINE 4 [facility] W/LEAST P 12 LDS I&R ONLY BLOOD 00863 OMARI SALCIDO COUNT 4 [facility] COMPLETE INC INC AUTO&[place] [address] OMARI SALCIDO TROPONIN 4 [facility] [place] [address] OMARI SALCIDO THYROID 4 [facility] STIMULATI INC INC NG HORMONE TSH CREATINE 82278 OMARI SALCIDO KINASE MB 4 [facility] FRACTION INC INC ONLY RADIOLOGI 19860 LORAINE Alcala 4 MEDICAL LATRELL EXAMINATI IMAGING ON CHEST ASS SINGLE VIEW FRONTAL COMPREHEN 20947 OMARI SALCIDO SIVE 4 [facility] METABOLIC INC INC PANEL ARTHROCEN 00248 ISMAEL HAASIS 4 YO[place]NA YOJANA ASPIR&/IN J INTERM JT/BURS W/O US INFLUENZA Q2038 ISMAEL GUEVARA JR VACC 4 YOJANA DWI SPLIT VIRUS 3 YRS & > IM FLUZONE INJECTION J1040 ISMAEL GUEVARA JR 4 [place] DWI METHYLPRE DNISOLONE ACETATE [address] SHOULDER 4 JESSE MOLINA COMPLETE PARTHA PARTHA MINIMUM [address] IN[address] 4 JESSE MOLINA HYDROMORP PARTHA PARTHA ASAEL UP TO [address] IC 4 JESSE JESSE PROPHYLAC PARTHA PARTHA TIC/DX INJECTION SUBQ/IM INJECTION J24[address] [facility] 4 JESSE JESSE ONDANSETR PARTHA PARTHA ON HCL PER 1 MG BASIC 76571 COMBINED COMBINED METABOLIC 4 PHYSICIAN PHYSICIAN PANEL S LA S LA CALCIUM TOTAL COLLECTIO 21221 ISMAEL GUEVARA JR N VENOUS 4 YOJANA DWI BLOOD VENIPUNCT URE CREATINE 48637 OMARI SALCIDO KINASE 4 [facility] TOTAL INC INC COLLECTIO 00411 ISMAEL GUEVARA JR N VENOUS 4 YOJANA DWI BLOOD VENIPUNCT URE BLOOD 36664 [facility]I SALCIDO COUNT 4 [facility] COMPLETE INC INC AUTO&AUTO DIFRNTL WBC BASIC 16252 OMARI SALCIDO METABOLIC 4 [facility] PANEL INC INC CALCIUM TOTAL URNLS DIP 33940 ISMAEL GUEVARA JR 4 YOJANA DWI STICK/TAB LET RGNT NON-AUTO W/O MICRSCP URNLS DIP 93750 ISMAEL ISMAEL JR 4 YOJANA DWI STICK/TAB LET RGNT NON-AUTO W/O MICRSCP RADEX 57906 OMARI SALCIDO SPINE 4 [facility] LUMBOSACR INC INC AL MINIMUM 4 VIEWS URNLS DIP 57609 ISMAEL ISMAEL JR 4 YOJANA DWI STICK/TAB LET RGNT NON-AUTO W/O MICRSCP CULTURE 68623 OMARI SALCIDO BACTERIAL 4 [facility] INC INC QUANTTATI VE COLONY COUNT URINE INJECTION J1040 ISMAEL GUEVARA JR 4 YOJANA DWI METHYLPRE DNISOLONE ACETATE 80 MG THERAPEUT 42006 ISMAEL GUEVARA JR IC 4 YOJANA DWI PROPHYLAC TIC/DX INJECTION SUBQ/IM COLLECTIO 66344 ISMAEL GUEVARA JR N VENOUS 4 YOJANA DWI BLOOD VENIPUNCT URE BLOOD 43108 COMBINED COMBINED COUNT 4 PHYSICIAN PHYSICIAN COMPLETE S LA S LA AUTO&AUTO DIFRNTL WBC BASIC 15471 COMBINED COMBINED METABOLIC 4 PHYSICIAN PHYSICIAN PANEL S LA S LA CALCIUM TOTAL OBSERVATI 54294 ISMAEL GUEVARA JR ON CARE 4 YOJANA DWI DISCHARGE MANAGEMEN T SBSQ 56390 ISMAEL GUEVARA JR OBSERVATI 4 YOJANA DWI ON CARE/DAY 25 MINUTES ECG 53265 OMARI GUEVARA JR ROUTINE 4 [facility] W/LEAST P 12 LDS I&R ONLY ECG 36587 [facility] BAB ROUTINE 4 MORGAN ECG EMERGENCY W/LEAST PHYS 12 LDS I&R ONLY ECHO 81819 [facility] R-T 4 MEDICAL EMELI 2D SERV W/WOM-MOD FOUNDATIO E COMPL SPEC&COLR D INITIAL 30077 ISMAEL GUEVARA JR OBSERVATI 4 YOJANA DWI ON CARE/DAY 50 MINUTES [facility]OUND [facility]0425 [facility] PER SERVICE SERVICE STATUTE MILE AMB A0427 [facility] 4 AMBULANCE AMBULANCE ALS SERVICE SERVICE EMERGENCY TRANSPORT LEVEL 1 URNLS DIP 83433 ISMAEL GUEVARA JR 4 YOJANA DWI STICK/TAB LET RGNT NON-AUTO W/O MICRSCP RADEX 34414 [facility]INE ZACH FOOT 4 [facility] COMPLETE IMAGING MINIMUM 3 ASS VIEWS TECHNETIU A9567 OMARI Hernandez TC-99M 4 [facility] PENTETATE INC INC DX AEROSOL TO 75 MCI BASIC 44373 OMARI SALCIDO METABOLIC 4 [facility] PANEL INC INC CALCIUM TOTAL PULMONARY 81580 MAINE ZACH 4 [facility] VENTILATI IMAGING ON & ASS PERFUSION IMAGING CREATINE 42674 OMARI SALCIDO KINASE MB 4 [facility] FRACTION INC INC ONLY TECHNETIU A9540 OMARI Hernandez TC-99M 4 MEM [facility] MAA DX INC INC STDY DOSE UP TO 10 MCI ECG 47277 OMARI GUEVARA JR ROUTINE 4 [facility] W/LEAST P 12 LDS I&R ONLY RADIOLOGI 22265 ELLIOTTMUSCOGEEAndrea ZACH C EXAM 4 [facility] CHEST 2 IMAGING VIEWS ASS FRONTAL&[place] [address] OMARI SALCIDO TROPONIN 4 [facility] QUANTITAT INC INC RIGO COLLECTIO 60540 OMARI SALCIDO N VENOUS 4 [facility] BLOOD INC INC VENIPUNCT URE FIBRIN 53884 OMARI SALCIDO DGRADJ 4 [facility] PRODUCTS INC INC D-DIMER QUAL/SEMI NAYE CREATINE 99604 OMARI SALCIDO KINASE 4 [facility] TOTAL INC INC ECG 95632 OMARI SALCIDO ROUTINE 4 [facility] ECG INC INC W/LEAST 12 LDS TRCG ONLY W/O I&R RADIOLOGI 10085 [facility] C EXAM 4 [facility] CHEST 2 IMAGING VIEWS ASS FRONTAL&[place] [address] OMARI SALCIDO LIPASE 4 [facility] INC INC BLOOD 59366 OMARI SALCIDO COUNT 4 [facility] COMPLETE INC INC AUTO&AUTO DIFRNTL WBC URNLS DIP 08266 OMARI SALCIDO 4 [facility] STICK/TAB INC INC LET REAGENT AUTO MICROSCOP Y COMPREHEN 26701 OMARI SALCIDO SIVE 4 [facility] METABOLIC INC INC PANEL URNLS DIP 17062 OMARI SALCIDO 4 [facility] STICK/TAB INC INC LET REAGENT AUTO MICROSCOP Y IAADI 54549 OMARI SALCIDO INFFLUENZ 4 [facility] A A VIRUS INC INC IAADI 13341 OMARI SALCIDO INFLUENZA 4 [facility] B VIRUS INC INC STANDARD K0001 [facility]HELLE PIMENTELI 4 [facility] E[facility]IP[facility] EQUIPME STANDARD K0001 MICHELLE PIMENTELI 4 [facility] MEDICAL EQUIPME EQUIPME CULTURE 68911 OMARI SALCIDO BACTERIAL 4 [facility] INC INC QUANTTATI VE COLONY COUNT URINE STANDARD K0001 MICHELLE PIMENTELI 3 HOME [facility]ICAL MEDICAL EQUIPME EQUIPME SEDIMENTA 98772 OMARI SALCIDO TION RATE 3 [facility] RBC INC INC NON-AUTOM ATED BLOOD 90032 OMARI SALCIDO COUNT 3 [facility] COMPLETE INC INC AUTO&AUTO DIFRNTL WBC STANDARD K0001 MICHELLE PIMENTELI 3 HOME HOME [facility] MEDICAL MEDICAL EQUIPME EQUIPME STANDARD K0001 MICHELLE PIMENTELI 3 HOME HOME R MEDICAL MEDICAL EQUIPME EQUIPME STANDARD K0001 MICHELLE PIMENTELI 3 HOME HOME R MEDICAL MEDICAL EQUIPME EQUIPME CULTURE 18155 OMARI SALCIDO BACTERIAL 3 [facility] INC INC QUANTTATI VE COLONY COUNT URINE URNLS DIP 25319 ISMAEL GUEVARA JR 3 YOJANA DWI STICK/TAB LET RGNT NON-AUTO W/O MICRSCP THERAPEUT 32819 ISMAEL GUEVARA JR IC 3 YOJANA DWI PROPHYLAC TIC/DX INJECTION SUBQ/IM INJECTION J1100 ISMAEL GUEVARA JR 3 YOJANA DWI DEXAMETHO SONE SODIUM PHOSPHATE 1 MG STANDARD K0001 MICHELLE PIMENTELI 3 HOME HOME R MEDICAL MEDICAL EQUIPME EQUIPME OPHTH 37258 [facility] 3 [facility] XM&EVAL INSTITUTE COMPRE NEW PT 1/> VST DETERMINA 63831 [facility] [employer] TION 3 [facility] REFRACTIV INSTITUTE E STATE STANDARD K0001 MICHELLE PIMENTELI 3 HOME HOME R MEDICAL MEDICAL EQUIPME EQUIPME RADEX 04836 [facility] SPINE 3 [place] CERVICAL ORTHOPAED 2 OR 3 [facility] VIEWS RADEX 19969 [facility] SPINE 3 [place] THORACIC ORTHOPAED 2 [place] [address] [facility] BLOOD/URI 3 [facility] C ACID LABORATO LABORATO COMPREHEN 32556 [facility] METABOLIC LABORATO LABORATO PANEL BLOOD 48259 [facility] [place] COUNT 3 [facility] COMPLETE LABORATO LABORATO AUTO&AUTO DIFRNTL WBC LACTATE 47558 [facility] [place] DEHYDROGE 3 CLINIC CLIN[facility] NASE LDH LABORATO LABORATO COLLECTIO 34119 [facility] BLOOD LABORATO LABORATO VENIPUNCT URE STANDARD K0001 MICHELLE MICHELLEJALEN HERNANDEZCHAI 3 HOME HOME R MEDICAL MEDICAL EQUIPME EQUIPME INJECTION J1040 TYESHA ARAMBULA 3 DON DON METHYLPRE DNISOLONE ACETATE 80 MG STANDARD K0001 MICHELLE MAXWELL 3 HOME HOME R MEDICAL MEDICAL EQUIPME EQUIPME OPHTH 23235 [facility] 3 MEDICAL JR ORTEGA XM&EVAL SERV COMPRHNSV FOUNDATIO ESTAB PT 1/> STANDARD K0001 MICHELLE MAXWELL 3 HOME HOME R MEDICAL MEDICAL EQUIPME [facility] [address] [facility] 3 EMERGENCY RAE IGN DAY SERVICES MANAGEMEN T 30 MIN/< ANESTHESI 83541 MAINE DALE A PERQ 3 ANESTHESI [place] IMAGE A GROUP GUIDED PS SP[place]APE[place] IC SBSQ 62233 [facility] 3 EMERGENCY RAE IGN CARE/DAY SERVICES 25 MINUTES INITIAL 94845 [facility] 3 N CARE/DAY CARDIOLOG 30 Y MINUTES MRI 32341 [facility] [place] [facility] MAT SPINAL 3 RADIOLOGY CANAL THORACIC W/O CONTRAST MATRL MRI 87748 [facility] [place] [facility] MAT SPINAL 3 RADIOLOGY CANAL LUMBAR W/O CONTRAST MATERIAL RADIOLOGI 30982 [facility] [place] [facility] MAT C 3 RADIOLOGY EXAMINATI ON CHEST SINGLE VIEW FRONTAL MRI 66736 [facility] ZACH SPINAL 3 MED[facility] CANAL IMAGING LUMBAR ASS W/O CONTRAST MATERIAL INITIAL 78527 [facility] 3 EMERGENCY JANET CARE/DAY SERVICES 70 MINUTES 3D 06188 MAINE ZACH RENDERING 3 MEDICAL ALTRELL IMAGING W/INTERP& ASS POSTPROC DIFF WORK STATION CT LUMBAR 62708 OMARI SALCIDO SPINE 3 [facility] W/O INC INC CONTRAST MATERIAL RADIOLOGI 29692 OMARI SALCIDO C 3 [facility] EXAMINATI INC INC ON PELVIS 1/2 VIEWS 3D 50293 OMARI SALCIDO RENDERING 3 [facility] W/INTERP INC INC & POSTPROCE SS SUPERVISI ON THERAPEUT 03024 OMARI SALCIDO IC 3 [facility] PROPHYLAC INC INC TIC/DX INJECTION SUBQ/IM 3D 84838 OMARI SALCIDO RENDERING 3 [facility] INC INC W/INTERP& POSTPROC DIFF WORK STATION GROUND A0425 [facility] PER SERVICE SERVICE STATUTE MILE AMBULANCE A0429 [facility] 3 AMBULANCE AMBULANCE BLS SERVICE SERVICE EMERGENCY TRANSPORT RADIOLOGI 92884 OMARI SALCIDO C 3 [facility] EXAMINATI INC [place] [address] OMARI SALCIDO HEAD/BRAI 3 [facility] N W/[place] [address] OMARI SALCIDO CERVICAL 3 [facility] SPINE W/O INC INC CONTRAST MATERIAL RADEX 33004 OMARI JESSICA ORTEGA SPINE 3 [facility] LUMBOSACR INC AL MINIMUM 4 VIEWS INJECTION J1040 TYESHA ARAMBULA 3 DON DON METHYLPRE DNISOLONE ACETATE 80 MG STANDARD K0001 [facility]HELLE MAXWELL 3 HOME HOME R MEDICAL MEDICAL EQUIPME EQUIPME COMPREHEN 65401 OMARI SALCIDO SIVE 3 [facility] METABOLIC INC INC PANEL URNLS DIP 96145 OMARI SALCIDO 3 [facility] STICK/TAB INC INC LET REAGENT AUTO MICROSCOP Y BLOOD 02066 OMARI SALCIDO COUNT 3 [facility] COMPLETE INC INC AUTO&AUTO DIFRNTL WBC COLLECTIO 27360 OMARI Lee VENOUS 3 [facility] BLOOD INC INC VENIPUNCT URE RADIOLOGI 92542 TYESHA Alcala 3 DON DON EXAMINATI ON KNEE 1/2 VIEWS STANDARD K0001 MICHELLE MAXWELL 3 HOME HOME R MEDICAL MEDICAL EQUIPME EQUIPME CULTURE 06811 OMARI SALCIDO BCT 3 [facility] ISOL&PRSM INC INC PTV ID ISOLATE EA URINE CULTURE 41386 OMARI SALCIDO BACTERIAL 3 [facility] INC INC QUANTTATI VE COLONY COUNT URINE URNLS DIP 67814 TYESHA ARAMBULA 3 DON DON STICK/TAB LET RGNT NON-AUTO W/O MICRSCP SUSCEPTIB 52729 OMARI SALCIDO LTY STDY 3 [facility] ANTIMICRB INC INC IAL MICRO/AGA R DILUTJ OPHTH 89017 [facility] 3 MEDICAL JR ORTEGA XM&EVAL SERV COMPRHNSV FOUNDATIO ESTAB PT 1/> CUL BACT 31445 OMARI SALCIDO XCPT 3 [facility] URINE INC INC BLOOD/[place] [address] OMARI SALCIDO INFUSION 3 [facility] THERAPY/P INC INC ROPHYLAXI S /DX 1ST TO [place] [address] OMARI SALCIDO INFUSION 3 [facility] THERAPY/P INC INC ROPHYLAXI S /DX 1ST TO 1 [place] [address] OMARI SALCIDO INFUSION 3 [facility] THERAPY/P INC INC ROPHYLAXI S /DX 1ST TO 1 HR DRUG 82957 OMARI SALCIDO SCREEN 3 [facility] QUANTITAT INC INC RIGO GENTAMICI N DRUG 58583 OMARI SALCIDO SCREEN 3 [facility] QUANTITAT INC INC RIGO GENTAMICI N COLLECTIO 69505 OMARI SALCIDO N VENOUS 3 [facility] BLOOD INC INC VENIPUNCT URE COLLECTIO 42324 OMARI SALCIDO N VENOUS 3 [facility] [place] [address] OMARI SALCIDO INFUSION 3 [facility] THERAPY/P INC INC ROPHYLAXI S /DX 1ST TO 1 HR DRUG 52482 OMARI SALCIDO SCREEN 3 [facility] QUANTITAT INC INC RIGO GENTAMICI N DRUG 47358 OMARI SALCIDO SCREEN 3 [facility] QUANTITAT INC INC RIGO GENTAMICI N COLLECTIO 61716 OMARI SALCIDO N VENOUS 3 [facility] [place] [address] OMARI SALCIDO UREA 3 [facility] NITROGEN INC INC QUANTITAT RIGO CREATININ 75338 OMARI SALCIDO E BLOOD 3 [facility] [place] [address] OMARI SALCIDO INFUSION 3 [facility] THERAPY/P INC INC ROPHYLAXI S /DX 1ST TO 1 HR BASIC 75937 OMARI SALCIDO METABOLIC 3 [facility] PANEL INC INC CALCIUM TOTAL CUL BACT 22452 OMARI SALCIDO AEROBIC 3 [facility] ADDL INC INC METHS DEFINITIV E EA ISOL CUL BACT 79825 OMARI SALCIDO XCPT 3 [facility] URINE INC INC BLOOD/STO OL AEROBIC ISOL INJECTION J0690 ARAMBULAZak ARAMBULA 3 DON DON CEFAZOLIN SODIUM 500 MG SUSCEPTIB 89976 OMARI SALCIOD LTY STDY 3 [facility] ANTIMICRB INC INC IAL MICRO/AGA R DILUTJ ADMINISTR G0008 TYESHA ARAMBULA ATION OF 2 DON DON INFLUENZA VIRUS VACCINE INFLUENZA Q2037 TYESHA ARAMBULA VACC 2 DON DON SPLIT VIRUS 3 YRS & > IM FLUVIRIN INJECTION J1040 TYESHA ARAMBULA 2 DON DON METHYLPRE DNISOLONE ACETATE 80 MG INJECTION J3420 TYESHA ARAMBULA VIT B-12 2 DON DON CYANOCOBA JEWEL TO 1000 MCG INJ J0702 TYESHA ARAMBULA BETAMETHA 2 DON DON SONE ACETATE & PHOSPHATE 3 MG REMOVAL 11626 TYESHA ARAMBULA IMPACTED 2 DON DON CERUMEN INSTRUMEN TATION UNILAT ECG 60270 TYESHA ARAMBULA ROUTINE 2 DON DON ECG W/LEAST 12 LDS W/I&R ECG 27047 TYESHA ARAMBULA ROUTINE 2 DON DON ECG W/LEAST 12 LDS W/I&R RADEX ABD 11823 TYESHA ARAMBUAL COMPL 2 DON DON AQT ABD W/S/E/D VIEWS 1 VIEW URNLS DIP 84849 TYESHA ARAMBULA 2 DON DON STICK/TAB LET RGNT NON-AUTO W/O MICRSCP INJECTION J1040 TYESHA ARAMBULA 2 DON DON METHYLPRE DNISOLONE ACETATE 80 MG ECG 55289 EMILY BOOTH ROUTINE 2 EMERGENCY SAJAN ECG SERVICES W/LEAST 12 LDS I&R ONLY BLOOD 50116 OMARI SALCIDO COUNT 2 [facility] COMPLETE INC INC AUTO&AUTO DIFRNTL WBC NATRIURET 30522 OMARI OMARI IC 2 [facility] [place] [address] OMARI SALCIDO TROPONIN 2 [facility] QUANTITAT INC INC RIGO ECG 50029 OMARI SALCIDO ROUTINE 2 [facility] ECG INC INC W/LEAST 12 LDS TRCG ONLY W/O I&R THER 04797 OMARI SALCIDO PROPH/DX 2 [facility] NJX IV INC INC PUSH SINGLE/1S T SBST/DRUG CREATINE 17442 OMARI SALCIDO KINASE 2 [facility] TOTAL INC INC COMPREHEN 74566 OMARI SALCIDO SIVE 2 [facility] METABOLIC INC INC PANEL URNLS DIP 23815 OMARI SALCIDO 2 [facility] STICK/TAB INC INC LET REAGENT AUTO MICROSCOP Y RADIOLOGI 13379 OMARI SALCIDO C 2 [facility] EXAMINATI INC INC ON CHEST SINGLE VIEW FRONTAL INJECTION J2405 OMARI SALCIDO 2 [facility] ONDANSETR INC INC ON HCL PER 1 MG CREATINE 63217 OMARI SALCIDO KINASE MB 2 [facility] FRACTION INC INC ONLY COMPREHEN 51198 OMARI SALCIDO SIVE 2 [facility] METABOLIC INC INC PANEL COLLECTIO 95262 OMARI SALCIDO N VENOUS 2 [facility] BLOOD INC INC VENIPUNCT URE INJECTION J3420 TYESHA ARAMBULA VIT B-12 2 DON DON CYANOCOBA JEWEL TO 1000 MCG INJECTION J1040 TYESHA ARZATES 2 DON DON METHYLPRE DNISOLONE ACETATE 80 MG TYMPANOME 56945 TYESHA ARAMBULA TRY [address] [place] [address] OMARI SALCIDO THYROID 2 [facility] STIMULATI INC INC NG HORMONE TSH COMPREHEN 90413 OMARI SALCIDO SIVE 2 [facility] METABOLIC INC INC PANEL LIPID 70891 OMARI SALCIDO PANEL 2 [facility] INC INC BLOOD 25841 OMARI SALCIDO COUNT 2 [facility] COMPLETE INC INC AUTO&AUTO DIFRNTL WBC COLLECTIO 79399 OMARI SALCIDO N VENOUS 2 [facility] BLOOD INC INC VENIPUNCT URE OPHTH 78715 [facility] 2 MEDICAL ORTEGA XM&EVAL SERV COMPRHNSV FOUNDATIO ESTAB PT 1/> COMPUTERI 16179 [place] [facility] ZED 2 MEDICAL ORTE[facility] OPHTHALMI [place] [address] OMARI OMARI TRANSVAGI 2 [facility] NAL INC INC US PELVIC 53617 EUGENIOAndrea ZACH 2 MEDICAL LATRE[facility] NONOBSTET IMAGING ZOEY ASS REAL-TIME IMAGE COMPLETE URNLS DIP 48220 TYESHA ARAMBULA 2 DON DON STICK/TAB LET RGNT NON-AUTO W/O MICRSCP INJECTION J3420 TYESHA ARAMBULA VIT B-12 2 DON DON CYANOCOBA JEWEL TO 1000 MCG INJECTION J1040 TYESHA ARAMBULA 2 DON DON METHYLPRE DNISOLONE ACETATE 80 MG URNLS DIP 97720 TYESHA ARAMBULA 2 DON DON STICK/TAB LET RGNT NON-AUTO W/O MICRSCP INJECTION J3420 TYESHA ARAMBULA VIT B-12 1 DON DON CYANOCOBA JEWEL TO 1000 MCG ADMINISTR G0008 TYESHA ARAMBULA ATION OF 1 DON DON INFLUENZA VIRUS VACCINE INFLUENZA Q2037 TYESHA ARAMBULA VACC 1 DON DON SPLIT VIRUS 3 YRS & > IM FLUVIRIN URNLS DIP 58242 TYESHA ARAMBULA 1 DON DON STICK/TAB LET RGNT NON-AUTO W/O MICRSCP INJECTION J3420 TYESHA ARAMBULA VIT B-12 1 DON DON CYANOCOBA JEWEL TO 1000 MCG INJECTION J1040 TYESHA ARAMBULA 1 DON DON METHYLPRE DNISOLONE ACETATE 80 MG URNLS DIP 68993 TYESHA ARZATES 1 DON DON STICK/TAB LET RGNT NON-AUTO W/O MICRSCP URNLS DIP 06290 TYESHA ARAMBULA 1 DON DON STICK/TAB LET RGNT NON-AUTO W/O MICRSCP CULTURE 62976 OMARI OMARI BACTERIAL 1 [facility] INC INC QUANTTATI VE COLONY COUNT URINE URNLS DIP 15668 TYESHA ARZATES 1 DON DON STICK/TAB LET RGNT NON-AUTO W/O MICRSCP URNLS DIP 03686 [place] [facility] [place] [facility] STICK/TAB CLINIC LET RGNT PSC NON-AUTO W/O MICRSCP URNLS DIP 74869 TYESHA ARAMBULA 1 DON DON STICK/TAB LET RGNT NON-AUTO W/O MICRSCP INJ J0702 TYESHA ARAMBULA BETAMETHA 1 DON DON SONE ACETATE & PHOSPHATE 3 MG INJECTION J3420 TYESHA ARAMBULA VIT B-12 1 DON DON CYANOCOBA [place]EWEL [place] [address] [place] [address] MAINE ZACH ABDOMEN & 1 MEDICAL [facility] PELVIS IMAGING W/CONTRAS ASS T MATERIAL CT THORAX 15123 MAINE ZACH W/O 1 MEDICAL [facility] CONTRAST IMAGING MATERIAL ASS 3D 67701 MAINE ZACH RENDERING 1 MEDICAL [facility] IMAGING W/INTERP& ASS POSTPROC DIFF WORK STATION CT THORAX 30857 OMARI SALCIDO 1 [facility] W/[place] [address] [facility] BLOOD/URI 1 CLINIC CLINIC C ACID LABORATO LABORATO COMPREHEN 48728 [facility] SIVE 1 CLINIC CLINIC METABOLIC LABORATO LABORATO PANEL LACTATE 29588 [facility] DEHYDROGE 1 CLINIC CLINIC NASE LDH LABORATO LABORATO BLOOD 84253 [facility] COUNT 1 CLINIC CLINIC COMPLETE LABORATO LABORATO AUTO&AUTO DIFRNTL WBC COLLECTIO 89138 [facility] N VENOUS 1 CLINIC CLINIC BLOOD LABORATO LABORATO VENIPUNCT URE INJECTION J3420 TYESHA ARAMBULA VIT B-12 1 DON DON CYANOCOBA JEWEL TO 1000 MCG INJECTION J1040 TYESHA ARAMBULA 1 DON DON METHYLPRE DNISOLONE ACETATE 80 MG INJECTION J0690 TYESHA ARAMBULA 1 DON DON CEFAZOLIN SODIUM 500 MG URNLS DIP 89459 OMARI JEAN-BAPTISTE JR 1 [facility] STICK/TAB [facility] LET RGNT P NON-AUTO W/O MICRSCP INJECTION J1040 TYESHA ARAMBULA 1 DON DON METHYLPRE DNISOLONE ACETATE 80 MG BLOOD 06310 OMARI SALCIDO COUNT 1 [facility] COMPLETE INC INC AUTO&AUTO DIFRNTL WBC COLLECTIO 37847 OMARI SALCIDO N VENOUS 1 [facility] BLOOD INC INC VENIPUNCT URE COMPREHEN 97012 OMARI ASLCIDO SIVE 1 [facility] METABOLIC INC INC PANEL LIPID 74838 OMARI SALCIDO PANEL 1 [facility] [place] [address] OMARI SALCIDO THYROID 1 [facility] STIMULATI INC INC NG HORMONE TSH INJECTION J1040 TYESHA ARAMBULA 1 DON DON METHYLPRE DNISOLONE ACETATE 80 MG INJECTION J1040 TYESHA ARAMBULA 0 DON DON METHYLPRE DNISOLONE ACETATE 80 MG AMBULANCE A0429 [facility] 0 AMBULANCE AMBULANCE BLS SERVICE SERVICE EMERGENCY TRANSPORT SIMPLE 36199 OMARI SALCIDO RPR 0 [facility] SCALP/NEC INC INC K/AX/KIRSTIE T/TRUNK 7.6-12.5C M GROUND A0425 [facility] MILEAGE 0 AMBULANCE AMBULANCE [place] [address] OMARI SALCIDO CLOSTRIDI 0 [facility] UM INC INC DIFFICILE TOXIN URNLS DIP 23800 TYESHA ARAMBULA 0 DON DON STICK/TAB LET RGNT NON-AUTO W/O MICRSCP OPHTH 10579 [facility] 0 MEDICAL ORTEGA XM&EVAL SERV COMPRHNSV FOUNDATIO ESTAB PT 1/> ADMINISTR G0008 TYESHA ARAMBULA ATION OF 0 DON DON INFLUENZA VIRUS VACCINE INJECTION J1040 TYESHA ARAMBULA 0 DON DON METHYLPRE DNISOLONE ACETATE 80 MG IIV3 37628 TYESHA ARAMBULA VACCINE 0 DON DON SPLIT VIRUS 0.5 ML DOSAGE IM USE INJECTION J1040 TYESHA ARZATES 0 DON DON METHYLPRE DNISOLONE ACETATE 80 MG INJECTION J3420 TYESHA ARAMBULA VIT B-12 0 DON DON CYANOCOBA JEWEL TO 1000 MCG URNLS DIP 00345 [facility] ARAMBULA 0 DON DON STICK/TAB LET RGNT NON-AUTO W/O MICRSCP URNLS DIP 76374 [facility] ARAM[facility]A 0 DON DON STICK/TAB LET RGNT NON-AUTO W/O MICRSCP URNLS DIP 38277 TYESHA ARAMBULA, 0 DON R DON R STICK/TAB LET RGNT NON-AUTO W/O MICRSCP INJECTION J1040 TYESHA ARAMBULA, 0 DON R DON R METHYLPRE DNISOLONE ACETATE 80 MG THERAPEUT 95007 [facility] IC [facility] PROP[facility]LAC INC INC TIC/DX INJECTION SUBQ/IM INJECTION J1040 TYESHA ARAMBULA, 0 DON R DON R METHYLPRE DNISOLONE ACETATE 80 MG URNLS DIP 64083 TYESHA ARAMBULA, 0 DON R DON R STICK/TAB LET RGNT NON-AUTO W/O MICRSCP COMPREHEN 66185 [facility] SIVE 0 [facility] CLINIC METABOLIC [place]OR[place] [address] [facility] BLOOD/URI 0 CLINIC CLINIC C ACID LABORATOR LABORATOR Y Y LACTATE 10260 [facility] DEHYDROGE 0 CLINIC CLINIC NASE LDH LABORATOR LABORATOR Y Y BLOOD 79084 [facility] COUNT 0 CLINIC CLINIC COMPLETE LABORATOR LABORATOR AUTO&AUTO Y Y DIFRNTL WBC COLLECTIO 78124 [facility] N VENOUS 0 CLINIC CLINIC BLOOD LABORATOR LABORATOR VENIPUNCT Y Y URE INJECTION J3420 TYESHA ARAMBULA, VIT B-12 0 DON R DON R CYANOCOBA JEWEL TO 1000 MCG RADIOLOGI 26573 ELLIOTTMUSCOGEEFredrick ORTIZ EXAM 0 [facility] CHEST 2 IMAGING VIEWS ASSOCIATE FRONTAL&L S ATERAL THERAPEUT 58906 [facility] SALCIDO IC 0 [facility] PROPHYLAC INC INC TIC/DX INJECTION SUBQ/IM INJECTION J1040 TYESHA ARAMBULA, 0 DON R DON R METHYLPRE DNISOLONE ACETATE 80 MG 3D [facility] [facility] 0 [facility] W/INTERP IMAGING & ASSOCIATE POSTPROCE S SS SUPERVISI ON COLLECTIO 58255 [facility] SALCIDO N VENOUS 0 [facility] BLOOD INC INC VENIPUNCT URE CREATININ 88292 [facility] SALCIDO E BLOOD 0 [place] [address] [facility] HEAD/BRAI 0 [facility] N W/O & IMAGING W/[place] [address] [facility] SALC[facility]O UREA 0 [facility] NITROGEN INC INC QUANTITAT RIGO RADEX HIP 10551 [facility] SALCIDO 0 [facility] UNILATERA INC INC L COMPLETE MINIMUM 2 VIEWS RADIOLOGI 70325 [facility] SALCIDO C 0 [facility] EXAMINATI INC INC ON PELVIS 1/2 VIEWS BLOOD 47324 TYESHA ARAMBULA, OCCULT 0 DON R DON R PEROXIDAS E ACTV QUAL FECES 1 DETER URNLS DIP 05642 TYESHA ARAMBULA, 0 DON R DON R STICK/TAB LET RGNT NON-AUTO W/O MICRSCP INJ J0702 TYESHA ARAMBULA BETAMETHA 0 DON R DON R SONE ACETATE & PHOSPHATE 3 [place] [address] OMARI SALCIDO UREA 9 [facility] NITROGEN INC INC QUANTITAT RIGO 3D 47420 MAINE ZACH, RENDERING 9 [facility] IMAGING W/INTERP& ASSOCIATE POSTPROC S DIFF WORK STATION CT THORAX 26787 ELLIOTTMUSCOGEEAndrea HIRSCHZACH 9 [facility] W/CONTRAS IMAGING T ASSOCIATE MATERIAL S CREATININ 28578 OMARI SALCIDO E BLOOD 9 [facility] INC INC COLLECTIO 78041 OMARI SALCIDO N VENOUS 9 [facility] BLOOD INC INC VENIPUNCT URE SBSQ 31457 TYESHA ARAMBULA, NURSING 9 DON R DON R FACILITY CARE/DAY E/M STABLE 10 MIN HOSPITAL 79160 ARAM[facility]ACARITOS, DISCHARGE 9 DON R DON R DAY MANAGEMEN T 30 MIN/< SBSQ 62182 [place] [address] DON R DON R CARE/DAY 25 MINUTES SBSQ 44167 [place] [address] DON R DON R CARE/DAY 25 MINUTES SBSQ 18106 [place] [address] DON R DON R CARE/DAY 25 MINUTES RADIOLOGI 67866 ELLIOTTMUSCOGEEAndrea Fredrick SERRANO 9 [facility] EXAMINATI IMAGING ON CHEST ASSOCIATE SINGLE S VIEW FRONTAL SBSQ 92003 [place] [address] DON R DON R CARE/DAY 25 MINUTES SBSQ 86918 [place] [address] DON R DON R CARE/DAY 25 MINUTES ECG 47783 VAZQUEZ PHILLIPS [address] [facility] ECG HOSPITAL W/LEAST PROF SERV 12 LDS I&R ONLY HIP 0074 OMARI SALCIDO BEARING 9 [facility] SURFACE INC INC METAL-ON- POLYETHYL AYUSH PARTIAL 8152 OMARI SALCIDO HIP 9 [facility] REPLACEME INC INC NT DECALCIFI 31613 PATHOLOGY PATHOLOGY CATION 9 & & PROCEDURE [place] [address] PATHOLOGY PATHOLOGY SURG 9 & & PATHOLOGY CYTOLOGY CYTOLOGY LAB LAB GROSS&SAJAN ROSCOPIC EXAM SBSQ 27196 ARAMBULA, [facility] H[facility] 9 DON R DON R CARE/DAY 25 MINUTES ANESTHESI 46262 [facility], OPEN 9 ANESTH JEN Telma TOTAL [facility] ARTHROPLA [facility] RADEX HIP 13048 MAINE ZACH, MEDICAL DEAN UNILATERA IMAGING L 1 VIEW ASSOCIATE S AMB [id number] [facility] SERVICE 9 AMBULANCE AMBULANCE ALS SERVICE SERVICE EMERGENCY TRANSPORT LEVEL 1 GROUND A0425 [facility] MILEAGE 9 AMBULANCE AMBULANCE PER SERVICE SERVICE STATUTE MILE INITIAL 98093 [facility] 9 DON R DON R CARE/DAY 50 MINUTES RADIOLOGI 95256 MAINE ZACH 9 MEDICAL DEAN EXAMINATI IMAGING ON CHEST ASSOCIATE SINGLE S VIEW FRONTAL RADEX HIP [address] [place] [address] MEDICAL DEAN UNILATERA IMAGING L ASSOCIATE COMPLETE S MINIMUM 2 VIEWS ECG 03063 OMARI OHARA ROUTINE 9 [facility] JEN F W/LEAST PROF SERV 12 LDS I&R ONLY RADIOLOGI 73021 MAINE ZACH 9 MEDICAL DEAN EXAMINATI IMAGING ON PELVIS ASSOCIATE 1/2 S VIEWS OPHTH 63158 [facility] MEDICAL MARTINE SINGLETON&JEWELS SERV INTERMEDI FOUNDATIO ATE ESTAB PT PPSV23 12807 TYESHA ARAMBULA, ENRESTO 2 9 DON R DON R YRS OR OLDER FOR SUBQ/IM USE IIV3 91360 TYESHA ARAMBULA VACCINE 9 DON R DON R SPLIT VIRUS 0.5 ML DOSAGE IM USE ADMINISTR G0009 TYESHA ARAMBULA, ATION OF 9 DON R DON R PNEUMOCOC CECILIA VACCINE ADMINISTR G0008 TYESHA ARAMBULA, ATION OF DON R DON R INFLUENZA VIRUS VACCINE URNLS DIP 42281 TYESHA ARAMBULA 9 DON R DON R STICK/TAB LET RGNT NON-AUTO W/O MICRSCP URNLS DIP 96247 TYESHA ARAMBULA 9 DON R DON R STICK/TAB LET RGNT NON-AUTO W/O MICRSCP INJECTION J3420 TYESHA ARAMBULA VIT B-12 9 DON R DON R CYANOCOBA JEWEL TO 1000 MCG RADEX 43194 OMARI SALCIDO ANKLE 9 [facility] COMPLETE INC INC MINIMUM 3 VIEWS RADEX 73995 OMARI SALCIDO WRIST 9 [facility] COMPLETE INC [place] MIN[place] [address] [place] [address] MAINE AZALEA, ABDOMEN 9 MEDICAL MARCO P W/CONTRAS IMAGING T ASSOCIATE MATERIAL S CT THORAX 82921 MAINE AZALEA, 9 MEDICAL MARCO P W/CONTRAS IMAGING T ASSOCIATE MATERIAL S 3D 87112 MAINE AZALEA, RENDERING 9 MEDICAL MARCO P IMAGING W/INTERP& ASSOCIATE POSTPROC S DIFF WORK STATION CT PELVIS 93621 ELLIOTTMUSCOGEEAndrea TRISTAN, 9 MEDICAL MARCO P W/CONTRAS IMAGING T ASSOCIATE MATERIAL S COMPREHEN 60361 [facility] SIVE 9 [facility]INIC METABOLIC LABORATOR LABORATOR PANEL Y Y COLLECTIO 63503 [facility] N VENOUS 9 CLINIC CLINIC BLOOD LABORATOR LABORATOR VENIPUNCT Y Y URE BLOOD 16146 [facility] COUNT 9 [facility] COMPLETE LABORATOR LABORATOR AUTO&AUTO Y Y DIFRNTL WBC INJECTION J1040 TYESHA ARAMBULA, 9 DON R DON R METHYLPRE DNISOLONE ACETATE 80 MG INJECTION J3420 TYESHA ARAMBULA VIT B-12 9 DON R DON R CYANOCOBA JEWEL TO 1000 MCG COLLECTIO 89276 [facility] 9 [facility]INIC BLOOD LABORATOR LABORATOR VENIPUNCT Y Y URE BLOOD 67993 [facility] COUNT 9 [facility]INIC COMPLETE LABORATOR LABORATOR AUTO&[place] [address] [facility] GAMMAGLOB 9 [facility] CLINIC ULIN IGA LABORATOR LABORATOR IGD IGG Y Y IGM EACH LACTATE 88385 [facility] DEHYDROGE 9 [facility] NASE LDH LABORATOR LABORATOR Y Y COMPREHEN 10484 [facility] SIVE 9 [facility] CLINIC METABOLIC [place] [address] [facility] BLOOD/URI 9 CLINIC CLINIC C ACID LABORATOR LABORATOR Y Y INJECTION J0152 OMARI SALCIDO 9 [facility] ADENOSINE INC INC DIAGNOSTI C USE 30 MG TECHNETIU A9502 OMARI SALCIDO M TC-99M 9 [facility] TETROFOSM INC INC IN DX PER STUDY DOSE MYOCRD 95864 OMARI SALCIDO PRFUJ IMG 9 [facility] TOMOG INC INC SPECT SENIOR DESIGNER/ART DIRECTOR STD MYOCRD 55874 OMARI SALCIDO PRFUJ STD 9 [facility] WALL INC INC MOTION QUAL/NAYE STD MYOCRD 15279 OMARI SALCIDO PRFUJ STD 9 [facility] EJEC FXJ INC INC CV STRS 74092 OMARI ROGER, TST 9 [facility] RX CONT PROF SERV ECG I&R ONLY CV STRS 38074 OMARI ROGER, TST 9 [facility] RX CONT PROF SERV ECG W/O I&R CV STRS 38375 OMARI SALCIDO TST 9 [facility] XERS&/OR INC INC RX CONT ECG TRCG ONLY ECG 24511 TYESHA ARAMBULA, ROUTINE 9 DON R DON R ECG W/LEAST 12 LDS W/I&R RADIOLOGI 80091 TYESHA ARAMBULA C 9 DON R DON R EXAMINATI ON CHEST SINGLE VIEW FRONTAL RADEX HIP 12206 TYESHA ARAMBULA 9 DON R DON R UNILATERA L COMPLETE MINIMUM 2 VIEWS RADIOLOGI 81261 TYESHA ARAMBULA C EXAM 9 DON R DON R PELVIS COMPL MINIMUM 3 VIEWS INJECTION J1040 TYESHA ARAMBULA 9 DON R DON R METHYLPRE DNISOLONE ACETATE 80 MG INJECTION J1040 TYESHA ARAMBULA 8 DON R DON R METHYLPRE DNISOLONE ACETATE 80 MG LACTATE 67649 [facility] DEHYDROGE 8 CLINIC CLINIC NASE LDH LABORATOR LABORATOR Y Y BLOOD 94482 [facility] COUNT 8 CLINIC CLINIC COMPLETE LABORATOR LABORATOR AUTO&AUTO Y Y DIFRNTL WBC COLLECTIO 94034 [facility] CLINIC BLOOD LABORATOR LABORATOR VENIPUNCT Y Y URE COMPREHEN 16422 [facility] SIVE 8 [facility]INIC METABOLIC [place] [address] [facility] BLOOD/URI 8 CLINIC CLINIC C ACID LABORATOR LABORATOR Y Y INJECTION J1040 TYESHA ARAMBULA, Roberta DON R DON R METHYLPRE DNISOLONE ACETATE 80 MG OPH 10101 [place] GARTH, [address]&EVAL SERV COMPRHNSV FOUNDATIO ESTAB PT 1/> URNLS DIP 78607 TYESHA ARAMBULA 8 DON R DON R STICK/TAB LET RGNT NON-AUTO W/O MICRSCP IIV3 59301 TYESHA ARAMBULA, VACCINE 8 DON R DON R SPLIT VIRUS 0.5 ML DOSAGE IM USE ADMINISTR G0008 TYESHA ARAMBULA, ATION OF 8 DON R DON R INFLUENZA VIRUS VACCINE THER 33664 [facility] PROPH/DX [address] [place] [address] NJX IV PUSH 1ST SBST/DRUG POTASSIUM [address] PLASMA/WH OLE BLOOD CHLORIDE [address]60 [facility] BLD [address] [place] [address] [place] [address] [facility] LIPASE [address] [place] [address] [facility] ROUTINE [address] [place] [address] ECG W/LEAST 12 LDS TRCG ONLY W/O I&R RADIOLOGI 52077 [facility] C EXAM [address] [place] [address] CHEST 2 VIEWS FRONTAL&L ATERAL BLOOD 34756 [facility] COUNT [address] [place] [address] COMPLETE AUTOMATED SODIUM [address] [place] [address] [facility] TROPONIN [address] [place] [address] QUANTITAT RIGO NATRIURET 53410 [facility] IC [address] [place] [address] B[address] [facility] GASES ANY [address] [place] [address] COMBINATI ON PH PCO2 PO2 CO2 HCO[address] [facility] QUANTITAT [address] [place] [address] RIGO BLOOD XCPT REAGENT STRIP ECG 41322 EMERGENCY ACKERMAN, ROUTINE 8 PHYS CARL W ECG [place] W/LEAST 12 LDS I&R ONLY HEPATIC 12095 [facility] FUNCTION [address] [place] [address] PANEL URNLS DIP [address] STICK/TAB LET [place]AG[place] NF[place] [address]38 [facility] HYDRATION [address] [place] [address] [place] [address] [facility] UREA [address] [place] [address] NITROGEN QUANTITAT RIGO INJECTION J[address] ONDANSETR ON HCL PER 1 MG RADEX 69844 OMARI SALCIDO SPINE 8 [facility] LUMBOSACR INC INC AL MINIMUM 4 VIEWS RADIOLOGI 57076 TYESHA ARAMBULA C EXAM 8 DON R [...] Date Code Location Performer Type Date CRITICAL . ACCESS 7 7 [facility] OMARI - O[facility]OU 7 7 [facility] - [facility] 7 7 [facility] - 7 7 [facility] OUTPATIEN INC T [facility] - 7 7 [facility]PAT[facility] INC T OFFICE 03707 [facility] RIKI OUTPATIEN 7 7 PHYSICIAN T VISIT S GROUP 25 MINUTES [facility]OSPITAL [facility] - 7 7 [facility] OUTPATIEN INC T OFFICE 90545 [facility] RIKI OUTPATIEN 7 7 PHYSICIAN T VISIT S GROUP 25 MINUTES [facility]OSPITAL [facility] - 7 7 [facility] OUTPATIEN INC [facility] OMARI - 7 7 [facility] OUTPATIEN INC T OFFICE 50128 [facility] RIKI OUTPATIEN 7 7 PHYSICIAN T VISIT S GROUP 40 MINUTES OFFICE 68500 MERRY HENRY OUTPATIEN 7 7 MEDICAL T VISIT SERV 25 FOUNDATIO MINUTES [facility] OMARI - 7 7 [facility] OUTPATIEN INC [facility] OMARI - 7 7 [facility] OUTPATIEN INC T OFFICE 67380 [facility] RIKI OUTPATIEN 7 7 PHYSICIAN T VISIT S GROUP 40 MINUTES [facility] OMARI - 7 7 [facility] OUTPATIEN INC [facility] OMARI - 7 7 [facility] OUTPATIEN INC T OFFICE 54516 MERRY ELAINE OUTPATIEN 7 7 MEDICAL T NEW 60 SERV MINUTES [facility] OMARI - 7 7 [facility] OUTPATIEN INC T OFFICE 12985 [facility] RIKI OUTPATIEN 7 7 PHYSICIAN T VISIT S GROUP 15 MINUTES [facility]OSPITAL [facility] - 7 7 [facility] OUTPATIEN INC [facility] OMARI - 7 7 [facility] OUTPATIEN INC T OFFICE 06689 [facility] OUTPATIEN 7 7 PHYSICIAN T NEW 60 S GROUP MINUTES [facility]OS[facility] - 7 7 [facility] OUTPATIEN INC [facility]OSPITAL OMARI COELLO 7 7 [facility] INC EMERGENCY 19711 CUBA MAK 7 7 [facility] H[facility]/URGE NT SEVERITY [facility] OMARI - 7 7 [facility] OUTPATIEN INC T EMERGENCY 17549 OMARI 7 7 [facility] DEPARTMEN INC T VISIT LOW/MODER SEVERITY OFFICE 04733 ISMAEL GUEVARA JR OUTPATIEN 7 7 T VISIT 15 MINUTES OFFICE 86762 [facility] OUTPAT[facility] 6 6 [place] T NEW 20 CLINIC MINUTES [facility] INPATIENT 6 6 [facility] 6 6 [facility]MAR[facility] - 6 6 [facility] OUTPATIEN [facility] INPATIENT 6 6 [facility] EMERGENCY 20005 CUBA CASTILLO DEPT 6 6 PHYSICIAN SARAH VISIT S, PLLC HIGH SEVERITY& THREAT CRITICAL ACCESS HOSPITAL HOSPITAL OMARI - 6 6 [facility] INPATIENT INC EMERGENCY 28247 CUBA JAQUEZ 6 6 [facility]YSIC[facility] PLL[facility] T VISIT MODERATE SEVERITY OFFICE 16254 [facility] DYLAN SIMMONS OUTPATIEN 6 6 PHYSICIAN MANJINDER T VISIT S GROUP 10 MINUTES OFFICE 59971 ISMAEL GUEVARA JR OUTPATIEN 6 6 YOJANA DWI T VISIT 15 MINUTES HOSPITAL O[facility] - 6 6 [facility] OUTPATIEN INC T OFFICE 68743 [facility] DYLAN SIMMONS OUTPATIEN 6 6 PHYSICIAN MANJINDER T VISIT S GROUP 15 MINUTES OFFICE 75798 ISMAEL GUEVARA JR OUTPATIEN 6 6 YOJANA DWI T VISIT 15 MINUTES HOSPITAL OMARI - 6 6 [facility] OUTPATIEN [facility] T OFFICE 76656 ISMAEL GUEVARA JR OUTPATIEN 6 6 YOJANA DWI T VISIT 15 MINUTES HOSPITAL OMARI - 6 6 [facility] OUTPATIEN [facility] T OFFICE 76647 ISMAEL GUEVARA OUTPATIEN 6 6 YOJANA YOJANA T VISIT 15 MINUTES OFFICE 31470 ISMAEL GUEVARA JR OUTPATIEN 5 5 YOJANA DWI T VISIT 15 MINUTES HOSPITAL [facility] - 5 5 [facility] 53914 ISMAEL GUEVARA OUTPATIEN 5 5 YOJANA DWI T VISIT 15 MINUTES [facility] OMARI - 5 5 [facility] T OFF[facility] 82870 ISMAEL GUEVARA OUTPATIEN 5 5 YOJANA DWI T VISIT 15 MINUTES HOSPITAL OMARI - OTHER 5 5 [facility] OFFICE 57269 [facility] DYLAN SIMMONS OUTPATIEN 5 5 PHYSICIAN MANJINDER T VISIT S GROUP 15 MINUTES HOSPITAL OMARI - OTHER 5 5 [facility] OMARI - 5 5 [facility] OFFICE 58314 [facility] DYLAN SIMMONS OUTPATIEN 5 5 PHYSICIAN MANJINDER T VISIT S GROUP 25 MINUTES HOSPITAL OMARI - 5 5 [facility] OUTPATIEN [facility] OMARI - 5 5 [facility] 5 5 [facility] OTHER 5 5 [facility] OMARI - OTHER 5 5 [facility] OFFICE 09383 ISMAEL GUEVARA JR OUTPATIEN 5 5 YOJANA DWI T VISIT 15 MINUTES OFFICE 59405 ISMAEL GUEVARA JR OUTPATIEN 5 5 YOJANA DWI T VISIT 15 MINUTES EMERGENCY 37999 OMARI 5 5 [facility] DEPARTMEN INC T VISIT HIGH/URGE NT SEVERITY HOSPITAL O[facility] - 5 5 [facility] OUTPATIEN INC T HOSPITAL OMARI - OTHER 5 5 [facility] INC OFFICE 32738 ISMAEL GEUVARA JR OUTPATIEN 5 5 YOJANA DWI T VISIT 15 MINUTES OFFICE 84444 ISMAEL GUEVARA JR OUTPATIEN 4 4 YOJANA DWI T VISIT 15 MINUTES OFFICE 43246 ISMAEL GUEVARA JR OUTPATIEN 4 4 YOJANA DWI T VISIT 15 MINUTES HOSPITAL OMARI - 4 4 [facility] OUTPATIEN [facility] T OFFICE 68180 [facility] ANJUR[facility]SU[facility] OUTPATIEN 4 4 [facility] T NEW 30 MEDICAL MINUTES G OFFICE 97881 ISMAEL GUEVARA JR OUTPATIEN 4 4 YOJANA DWI T VISIT 15 MINUTES HOSPITAL OMARI - 4 4 [facility] OUTPATIEN [facility] T OFFICE 59880 ISMAEL GUEVARA JR OUTPATIEN 4 4 YOJANA DWI T VISIT 15 MINUTES HOSPITAL OMARI - 4 4 [facility] OUTPATIEN INC T EMERGENCY 52252 [facility] 4 [facility] HIGH/URGE NT SEVERITY EMERGENCY 12058 [facility] DEPT 4 4 MORGAN MOH VISIT EMERGENCY HIGH PHYS SEVERITY& THREAT FUNCJ OFFICE 04488 ISMAEL GUEVARA JR OUTPATIEN 4 4 YOJANA DWI T VISIT [address] ACC[facility] 4 4 [facility] EM[facility] 36309 [facility] [address] [facility] MED CTR T VISIT MODERATE SEVERITY OFFICE 24538 ISMAEL GUEVARA JR OUTPATIEN 4 4 YOJANA DWI T VISIT 10 MINUTES OFFICE 34655 ISMAEL GUEVARA JR OUTPATIEN 4 4 YOJANA DWI T VISIT 15 MINUTES HOSPITAL OMARI - OTHER 4 4 [facility] INC OFFICE 68311 ISMAEL GUEVARA JR OUTPATIEN 4 4 YOJANA DWI T VISIT 15 MINUTES HOSPITAL O[facility] - 4 4 [facility] OUTPATIEN INC T OFFICE 89608 ISMAEL GUEVARA JR OUTPATIEN 4 4 YOJANA DWI T VISIT 15 MINUTES HOSPITAL OMARI - OTHER 4 4 [facility] INC OFFICE 80258 ISMAEL GUEVARA JR OUTPATIEN 4 4 YOJANA DWI T VISIT 15 MINUTES EMERGENCY 68690 [facility] DEPT 4 4 MORGAN VISIT EMERGENCY HIGH PHYS SEVERITY& THREAT FUNCJ OFFICE 96973 ISMAEL GUEVARA JR OUTKARINEN 4 4 YOJANA DWI T VISIT 15 MINUTES HOSPITAL OMAR[facility] - 4 4 [facility] OUTPATIEN INC T OFFICE 50423 ISMAEL GUEVAAR JR OUTPATIEN 4 4 YOJANA DWI T VISIT 25 MINUTES EMERGENCY 11514 [facility] 4 4 [facility] DEPARTMEN EMERGENCY T VISIT PHYS HIGH/URGE NT SEVERITY HOSPITAL O[facility] - 4 4 [facility] OUTPATIEN INC T EMERGENCY 28344 [facility] 4 4 [facility] DEPARTMEN INC T VISIT MODERATE SEVERITY EMERGENCY 95382 [facility] 4 4 [facility] DEPARTMEN INC T VISIT LOW/MODER SEVERITY EMERGENCY 85833 [facility] 4 4 MORGAN DEPARTMEN EMERGENCY T VISIT PHYS MODERATE SEVERITY [facility]OSPITAL [facility] - 4 4 [facility] OUTPATIEN [facility] OMARI - OTHER 4 4 [facility] - 3 3 [facility] OUTPATIEN [facility]OSPITAL OMARI - 3 3 [facility] OUTPATIEN [facility] T OFFICE 92692 ISMAEL GUEVARA JR OUTPATIEN 3 3 YOJANA DWI T VISIT 15 MINUTES OFFICE 01162 [facility] OUT[facility] 3 3 [place] T VISIT ORTHOPAED 15 [facility] MINUTES OFFICE 11128 [facility] OUTPATIEN 3 3 [place] T VISIT CLINIC 15 PSC MINUTES OFFICE 23589 TYESHA ARAMBULA OUTPATIEN 3 3 DON DON T VISIT 15 MINUTES OFFICE 00766 TYESHA ARZATES OUTPATIEN 3 3 DON DON T VISIT 15 MINUTES EMERGENCY 57658 EMILY MERINO DEPT 3 3 EMERGENCY III VARUN VISIT SERVICES HIGH SEVERITY& THREAT FUN EMERGENCY 21606 OMARI 3 3 [facility] DEPARTMEN [facility] T VISIT LOW/MODER SEVERITY HOSPITAL [facility] - 3 3 [facility] OUTPATIEN [facility] EMERGENCY 62531 OMARI 3 3 [facility] DEPARTMEN [facility] T VISIT LOW/MODER SEVERITY EMERGENCY 20768 EMILY BOOTH DEPT 3 3 EMERGENCY SAJAN VISIT SERVICES HIGH SEVERITY& THREAT [facility] - 3 3 [facility] OUTPATIEN [facility] OFFICE 97767 TYESHA ARAMBULA OUTPATIEN 3 3 DON DON T VISIT 15 MINUTES HOSPITAL O[facility] - 3 3 [facility] OUTPATIEN INC T OFFICE 00551 TYESHA ARZATES OUTPATIEN 3 3 DON DON T VISIT 25 MINUTES HOSPITAL [facility] - 3 3 [facility] OUTPATIEN [facility] OFFICE 53653 ARAMBULA ARAMBULA OUTPATIEN 3 3 DON DON T VISIT 15 MINUTES HOSPITAL OMARI - 3 3 [facility] OUTPATIEN [facility]OSPITAL OMARI - 3 3 [facility]PATI[facility] OMARI - 3 3 [facility] OUTPATIEN [facility] OMARI - 3 3 [facility]PATIEN [facility] OMARI - 3 3 [facility]PATIEN [facility] OMARI - 3 3 [facility]PATIEN [facility] OMARI - 3 3 [facility]PATI[facility] OMARI - 3 3 [facility]PATIEN [facility] OMARI - 3 3 [facility] OUTPATIEN [facility] OFFICE 89501 ARAMBULA ARAMBULA OUTPATIEN 3 3 DON DON T VISIT 15 MINUTES OFFICE 66769 ARAMBULA ARAMBULA OUTPATIEN 2 2 DON DON T VISIT 15 MINUTES OFFICE 36023 ARAMBULA ARAMBULA OUTPATIEN 2 2 DON DON T VISIT 25 MINUTES OFFICE 64586 ARAMBULA ARAMBULA OUTPATIEN 2 2 DON DON T VISIT 25 MINUTES OFFICE 85964 ARAMBULA ARAMBULA OUTPATIEN 2 2 DON DON T VISIT 25 MINUTES OFFICE 86297 ARAMBULA ARAMBULA OUTPATIEN 2 2 DON DON T VISIT 15 MINUTES HOSPITAL [facility] - 2 2 [facility] OUTPATIEN [facility] T EMERGENCY 49658 OMARI 2 2 [facility] T VISIT HIGH/URGE NT SEVERITY EMERGENCY 49598 EMILY BOOTH DEPT 2 2 EMERGENCY SAJAN VISIT SERVICES HIGH SEVERITY& THREAT FUN OFFICE 08439 JAIME GEIGER SAJAN OUTPATIEN 2 2 [place] T VISIT CLINIC 15 PSC MINUTES HOSPITAL O[facility] - 2 2 [facility] OUTPATIEN INC T OFFICE 54636 ARAMBULA ARAMBULA OUTPATIEN 2 2 DON DON T VISIT 15 MINUTES OFFICE 57681 ARAMBULA ARAMBULA OUTPATIEN 2 2 DON DON T VISIT 15 MINUTES HOSPITAL O[facility] - 2 2 [facility] OUTPATIEN [facility] - 2 2 [facility] OUTPATIEN [facility] OFFICE 16944 ARAMBULA ARAMBULA OUTPATIEN 2 2 DON DON T VISIT 15 MINUTES OFFICE 34002 ARAMBULA ARAMBULA OUTPATIEN 2 2 DON DON T VISIT 15 MINUTES OFFICE 14224 ARAMBULA ARAMBULA OUTPATIEN 1 1 DON DON T VISIT 15 MINUTES OFFICE 78261 ARAMBULA ARAMBULA OUTPATIEN 1 1 DON DON T VISIT 15 MINUTES OFFICE 63445 PAWSAT PAWSAT OUTPATIEN 1 1 Jan T VISIT 10 MINUTES OFFICE 76059 ARAMBULA ARAMBULA OUTPATIEN 1 1 DON DON T VISIT 15 MINUTES EMERGENCY 24436 EMILY NAVARRO 1 1 [facility] T VISIT MODERATE SEVERITY OFFICE 23056 ARAMBULA ARAMBULA OUTPATIEN 1 1 DON DON T VISIT 15 MINUTES [facility] - 1 1 [facility] T OFFICE 60768 ARAMBULA ARAMBULA OUTPATIEN 1 1 DON DON T VISIT 15 MINUTES OFFICE 67386 ARAMBULA ARAMBULA OUTPATIEN 1 1 DON DON T VISIT 15 MINUTES OFFICE 91852 [place] 1 [place] [facility] MIN[facility] PSC OFFICE 74498 ARAMBULA ARAMBULA OUTPATIEN 1 1 DON DON T VISIT 15 MINUTES OFFICE 84897 PAWSAT PAWSAT OUTPATIEN 1 1 MAR MAR T NEW 20 MINUTES [facility] - 1 1 [facility] T OFFICE 64162 [facility] 1 1 [place] [facility] 25 PSC MINUTES OFFICE 07551 ARAMBULA ARAMBULA OUTPATIEN 1 1 DON DON T VISIT 15 MINUTES OFFICE 95423 ARAMBULA ARAMBULA OUTPATIEN 1 1 DON DON T VISIT 15 MINUTES OFFICE 76233 ARAMBULA ARAMBULA OUTPATIEN 1 1 DON DON T VISIT 15 MINUTES OFFICE 21930 [facility] OUTPATIEN 1 1 [facility] 15 P MINUTES OFFICE 30287 ARAMBULA ARAMBULA OUTPATIEN 1 1 DON DON T VISIT 15 MINUTES OFFICE 17911 ARAMBULA ARAMBULA OUTPATIEN 1 1 DON DON T VISIT 15 MINUTES [facility] - 1 1 [facility] OUTPATI[facility] INC T OFFICE 51776 ARAMBULA ARAMBULA OUTPATIEN 1 1 DON DON T VISIT 15 MINUTES OFFICE 95709 ARAMBULA ARAMBULA OUTPATIEN 0 0 DON DON T VISIT 15 MINUTES OFFICE 98761 ARAMBULA ARAMBULA OUTPATIEN 0 0 DON DON T VISIT 15 MINUTES OFFICE 63547 ARAMBULA ARAMBULA OUTPATIEN 0 0 DON DON T VISIT 15 MINUTES OFFICE 47421 TYESHA ARZATES OUTPATIEN 0 0 DON DON T VISIT 15 MINUTES [facility] T EMERGENCY 90292 [facility] 0 0 [facility] DEPART[facility] T VISIT LOW/MODER SEVERITY EMERGENCY 16802 EMILY BOOTH 0 0 EMERGENCY [facility] DEPARTMEN SERVICES T VISIT HIGH/URGE NT SEVERITY OFFICE 79125 TYESHA ARZATES OUTPATIEN 0 0 DON DON T VISIT 15 MINUTES [facility] T OFFICE 70999 TYESHA ARZATES OUTPATIEN 0 0 DON DON T VISIT 15 MINUTES OFFICE 96592 [facility] ESTIVEN JR OUTPATIEN 0 0 LTH VARUN T VISIT UROLOGY 15 PSC MINUTES OFFICE 78658 TYESHA JAMESONHENS OUTPATIEN 0 0 DON DON T VISIT 15 MINUTES OFFICE 87911 [facility] ESTIVEN JR OUTPATIEN 0 0 LTH VARUN T NEW 20 UROLOGY MINUTES PSC OFFICE 47799 TYESHA ARZATES OUTPATIEN 0 0 DON DON T VISIT 15 MINUTES OFFICE 57478 TYESHA ARZATES OUTPATIEN 0 0 DON DON T VISIT 15 MINUTES OFFICE 12281 ARAMBUAL, ARAMBULA, OUTPATIEN 0 0 DON R DON R T VISIT 15 MINUTES EMERGENCY 52860 [facility] 0 0 [facility]PART[facility] T VISIT LIMITED/M INOR PROB EMERGENCY 44164 EMILY BOOTH, 0 0 EMERGENCY [facility] DEPARTMEN SERVICES T VISIT HIGH/URGE ASSOCIATE NT S SEVERITY [facility] T OFFICE 78978 TYESHA ARAMBULA OUTPATIEN 0 0 DON R DON R T VISIT 15 MINUTES OFFICE 05425 JAIME FELYBANDAR 0 0 AKIKO Johnson T VISIT CLINIC 15 PSC MINUTES OFFICE 16889 TYESHA ARAMBULA OUTPATIEN 0 0 DON R DON R T VISIT 15 MINUTES EMERGENCY 19091 EMILY GUNN, 0 0 EMERGENCY [facility] SERVICES M T VISIT HIGH/URGE ASSOCIATE NT S SEVERITY [facility] - 0 0 [facility] OUTPATI[facility] INC T EMERGENCY 00399 [facility]/M INOR PROB OFFICE 03226 TYESHA ARAMBULA OUTPATIEN 0 0 DON R DON R T VISIT 15 MINUTES [facility] - [facility] 0 [facility] INC T OFFICE 45641 TYESHA ARAMBULA OUTPATIEN 0 0 DON R DON R T VISIT 15 MINUTES [facility] T OFFICE 50338 [place] BANDAR MCLAIN 0 0 AND HAND NANDO A T NEW 10 SURGEONS MINUTES PSC OFFICE 04235 TYESHA ARAMBULA OUTPATIEN 0 0 DON R DON R T VISIT 25 MINUTES OFFICE 39241 TYESHA ARAMBULA OUTPATIEN 0 0 DON R DON R T VISIT 15 MINUTES OFFICE 70417 [facility]AMBULA OUTPATIEN 9 9 DON R DON R T VISIT 15 MINUTES OFFICE 99046 T[facility] ARAMBULA OUTPATIEN 9 9 DON R DON R T VISIT 15 MINUTES [facility] T EMERGENCY 16918 RADHA CHAVEZ 9 9 EMERGENCY MADDY S VISIT SERVICES HIGH SEVERITY& ASSOCIATE THREAT S [facility] - 9 9 [facility] INPATIENT [facility] OFFICE 87478 TYESHA ARAMBULA OUTPATIEN 9 9 DON R DON R T VISIT 15 MINUTES OFFICE 17095 TYESHA ARAMBULA OUTPATIEN 9 9 DON R DON R T VISIT 15 MINUTES OFFICE 38543 TYESHA ARAMBULA OUTPATIEN 9 9 DON R DON R T VISIT 15 MINUTES OFFICE 09574 TYESHA ARAMBULA OUTPATIEN 9 9 DON R DON R T VISIT 25 MINUTES [facility] 9 [facility] T EMERGENCY 61800 [facility] 9 9 [facility] DEPARTMEN INC T VISIT MODERATE SEVERITY EMERGENCY 23984 EMILY RAINES, 9 9 EMERGENCY [facility] DEPARTMEN SERVICES T VISIT HIGH/URGE ASSOCIATE NT S SEVERITY [facility] - 9 9 [facility] OUTPATIEN INC T OFFICE 63678 BANDAR CARRASCO 9 9 AKIKO Johnson T VISIT CLINIC 25 PSC MINUTES OFFICE 30953 TYESHA ARAMBULA OUTPATIEN 9 9 DON R DON R T VISIT 15 MINUTES OFFICE 50079 BANDAR CARRASCO 9 9 AKIKO Johnson T VISIT CLINIC 25 PSC MINUTES [facility] 9 [facility] T OFFICE 18110 TYESHA ARAMBULA OUTPATIEN 9 9 DON R DON R T VISIT 15 MINUTES OFFICE 67719 TYESHA ARAMBULA OUTPATIEN 9 9 DON R DON R T VISIT 15 MINUTES OFFICE 13704 TYESHA ARAMBULA OUTPATIEN 8 8 DON R DON R T VISIT 15 MINUTES OFFICE 31157 TYESHA ARAMBULA OUTPATIEN 8 8 DON R DON R T VISIT 15 MINUTES OFFICE 37439 TYESHA ARAMBULA OUTPATIEN 8 8 DON R DON R T VISIT 15 MINUTES OFFICE 99988 NEW BANDAR BELL 8 8 [facility] 45 CLINIC MINUTES [facility] EMERGENCY [address] [place] [address] [facility] V[facility] MODERATE SEVERITY [facility] [address] [facility] [address] EMERGENCY ACKERMAN, DEPT 8 8 PHYS CARL W VISIT SARANAC HIGH SEVERITY& THREAT [facility] - 8 8 [facility] OUT[facility] T OFFICE 18330 TYESHA ARAMBULA OUTPATIEN 8 8 DON R DON R T VISIT 15 MINUTES OFFICE 93070 TYESHA ARAMBULA OUTPATIEN 8 8 DON R DON R T VISIT 15 MINUTES OFFICE 49103 TYESHA ARAMBULA OUTPATIEN 8 8 DON R DON R T VISIT 15 MINUTES OFFICE 61250 TYESHA ARAMBULA OUTPATIEN 8 8 DON R DON R T VISIT 15 MINUTES OFFICE 23157 TYESHA ARAMBULA OUTPATIEN 8 8 DON R DON R T VISIT 15 MINUTES
--- OUTSIDE RECORDS SUMMARY | 2017-08-19 19:14 | External Medical Summary Rpt | CCD ---
Author Author , KARLIE POPERAJAN Address Unknown Phone [email or web address] Care Team Providers Care Rubber Belt Splicer Name Role Phone ALFARIS MOH, ALFARIS Unavailable Unavailable MOH ALLRAN JR MANJINDER, ALLRAN Unavailable Unavailable JR MANJINDER ANJUR-KAPALI CORNELIA, Unavailable Unavailable ANJUR-KAPALI CORNELIA [facility] Unavailable Unavailable CTR, [facility] Unavailable Unavailable CTR, [facility] ALONSO BRO, GUPTA Unavailable [...] W DAMIAN SAJAN, DAMIAN SAJAN Unavailable Unavailable [facility] Unavailable Unavailable CAMPUS, [facility] Unavailable Unavailable ANESTHESIA, [facility] ANESTHESIA [facility] Unavailable Unavailable [facility], [facility] & Unavailable Unavailable DUBILIER, [facility], Unavailable Unavailable [facility] BARROW JANET, BARROW Unavailable Unavailable JANET [facility] Unavailable Unavailable LA, [facility]available Unavailable [facility], [facility] Unavailable Unavailable PSC, [facility] Unavailable Unavailable THE BLUE, [...] BOOTH S, Unavailable Unavailable MADDY BOOTH S [facility] Unavailable Unavailable INC, [facility] Unavailable Unavailable HOSPITAL P, [facility], Unavailable Unavailable [facility] HORN SAJAN, HORN SAJAN Unavailable Unavailable HORN, MADDY E, Unavailable Unavailable HORN, MADDY E BRENNAN JOSHI, BRENNAN Unavailable Unavailable ADI MAK, MAK Unavailable Unavailable LUCAS TRA, LUCAS TRA Unavailable Unavailable MANUELA ORTEGA, MANUELA Unavailable Unavailable ORTEGA CASEY CHARLES, CASEY CHARLES Unavailable Unavailable [facility] Un[facility] Unavailable GROUP PS, [facility] Un[facility] Unavailable [facility], [facility] Unavailable Unavailable [facility], [facility] Unavailable Unavailable MEDICAL G, [facility] KORBA ORTEGA, KORBA ORTEGA Unavailable [...] E, Unavailable Unavailable ISMAEL, YOJANA E [facility] Unavailable Unavailable [facility], [facility]available Unavailable LABORATORY, [facility] Unavailable Unavailable SERVICES, [facility] RAY AND, Unavailable Unavailable RAY AND MAYDA SIMMONS JEN Unavailable Unavailable F, JEN OHARA JR F MARCO TRISTAN P, Unavailable Unavailable MARCO TRISTAN WILLIAM F, Unavailable Unavailable JEN GAMINO CLAUDETTE ORTEGA, CLAUDETTE Unavailable Unavailable ORTEGA ARABELLAMAHESH IRELAND M, Unavailable Unavailable ARABELLAMAHESH IRELAND M [facility] Unavailable Unavailable [facility], [facility] NANDO PEREZ, Unavailable Unavailable NANDO PEREZ [...] Unavailable SIEMER CLARY, SIEMER Unavailable Unavailable CLARY AVLDEZ DELMY, VALDEZ DELMY Unavailable Unavailable SOKAN BAB, SOKAN BAB Unavailable Unavailable MICHELLE EMELI, MICHELLE Unavailable Unavailable EMELI [facility] Unavailable Unavailable [facility], [facility] Unavailable Unavailable [facility], [facility] Unavailable Unavailable EMERGENCY PHYS, [facility] ROBINSON SHE, Unavailable Unavailable NISHA SHE [facility], Unavailable [facility]available [facility], Unavailable Unavailable [facility] TYESHA DON, Unavailable Unavailable ARAMBULA DON ARAMBULA DON, Unavailable Unavailable ARAMBULA REMBERTO ARAMBULA, REMBERTO R, Unavailable Unavailable TYESHA, REMBERTO R LILO RALPH, LILO Unavailable Unavailable ONOFRE URIBE, Unavailable Unavailable ONOFRE GUNN FOR, WALKER Unavailable Unavailable FOR WEHRMAN III VARUN, Unavailable Unavailable WEHRMAN III VARUN HENRY, HENRY Unavailable Unavailable MUSA MAT, MUSA MAT Unavailable Unavailable Purpose Continuity of Care Document - 11-18-2007 through 2016 Problems Code Diagnosis DOS Provider Status [id number] UNSPECIFIED 07-17-2017 [facility] [place] HEAD PARTHA INITIAL ENCOUNTER [id number] CONTUSION 07-17-2017 ST. OF LEFT [place] FOREARM PARTHA INITIAL ENCOUNTER [id number] LACERATION 07-17-2017 ST. W/O FOREIGN JESSE BODY LT PARTHA FOREARM INITIAL F57755 OTHER LONG 07-17-2017 . TERM [place] CURRENT PARTHA DRUG THERAPY Z9181 HISTORY OF 07-17-2017 [facility] [place] JESSE GRANT E875 HYPERKALEMI 07-06-2017 [facility] A [facility] D649 ANEMIA 07-02-2017 [facility] UNSPECIFIED [facility] I10 ESSENTIAL 07-02-2017 [facility] PRIMARY [facility] HYPERTENSIO INC N K219 GASTRO-ESOP 07-02-2017 [facility] H REFLUX [facility] DISEASE INC WITHOUT ESOPHAGITIS N183 CHRONIC 07-02-2017 [facility] KIDNEY [facility] DISEASE INC STAGE 3 MODERATE W51455 UNSPECIFIED 06-28-2017 [facility] ASTHMA HOME WITH ACUTE MEDICAL EXACERBATIO EQUIPME N J90 PLEURAL 06-16-2017 [facility] NOT IMAGING ASS ELSEWHERE CLASSIFIED R0602 SHORTNESS 06-16-2017 [facility] R062 WHEEZING 06-16-2017 [facility] R918 OTHER 06-16-2017 [facility] NONSPECIFIC MEDICAL ABNORMAL IMAGING ASS FINDING OF LUNG FIELD I119 HYPERTENSIV 06-01-2017 [facility] E HEART PHYSICIANS DISEASE GROUP WITHOUT HEART FAILURE I4891 UNSPECIFIED 06-01-2017 [facility] ATRIAL PHYSICIANS FIBRILLATIO GROUP N R0600 DYSPNEA 06-01-2017 [facility] UNSPECIFIED [facility] INC Z950 PRESENCE OF 06-01-2017 [facility] CARDIAC PHYSICIANS PACEMAKER GROUP I2510 ASHD LAC VIEUX 04-27-2017 [facility] 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 ANGINA PECTORIS I351 NONRHEUMATI 04-27-2017 [facility] C AORTIC PHYSICIANS VALVE GROUP INSUFFICIEN CY R296 REPEATED 04-27-2017 [facility] FALLS PHYSICIANS GROUP R5383 OTHER 04-27-2017 [facility] FATIGUE PHYSICIANS GROUP T30101 PAIN IN 04-23-2017 [place] LEFT ARM MEDICAL IMAGING ASS I53396 PAIN IN 04-23-2017 [facility] LEFT UPPER [facility] ARM INC R2232 LOCALIZED 04-23-2017 [facility] SWELLING [facility] MASS AND INC LUMP LEFT UPPER LIMB R600 LOCALIZED 04-23-2017 [facility] EDEMA MEDICAL IMAGING ASS C8597 NON-HODGKIN 04-20-2017 [facility] LYMPHOMA [facility] UNSPECIFIED INC SPLEEN I272 OTHER 04-20-2017 [facility] SECONDARY [facility] PULMONARY INC HYPERTENSIO N I495 SICK SINUS 04-20-2017 [facility] SYNDROME PHYSICIANS GROUP R001 BRADYCARDIA 04-20-2017 [facility] PHYSICIANS UNSPECIFIED GROUP R002 PALPITATION 04-20-2017 [facility] S PHYSICIANS GROUP I482 CHRONIC 04-02-2017 [facility] MEDICAL ATRIAL SERV FIBRILLATIO FOUNDATION N C8590 NON-HODGKIN 03-22-2017 [place] LYMPHOMA MEDICAL UNS IMAGING ASS UNSPECIFIED SITE I209 ANGINA 03-16-2017 [facility] PECTORIS [facility] UNSPECIFIED INC I208 OTHER FORMS 03-10-2017 [facility] OF ANGINA [facility] PECTORIS INC C37820 PERSONAL 02-26-2017 [place] [facility] [place] SERV V[facility]OUS [facility] THROMBOSIS& EMBOLISM O35736 ACUTE EMBO 02-23-2017 [facility] THROMB UNS PHYSICIANS DEEP VEINS GROUP UNS LOW EXTREM R42 DIZZINESS 02-23-2017 [facility] AND PHYSICIANS GIDDINESS GROUP I499 CARDIAC 02-03-2017 [facility]THMIA [facility] I517 CARDIOMEGAL 02-03-2017 [facility] Y MEDICAL IMAGING ASS X08265 SPONDYLOSIS 02-03-2017 [facility] W/O MEDICAL MYELOPATH/R IMAGING ASS ADICULOPATH Y CERV RGN Z64420 OTHER 02-03-2017 [facility] CERVICAL MEDICAL DISC IMAGING ASS DEGENERATIO N AT C5-C6 LEVEL T51368 OTHER 02-03-2017 [place] CERVICAL MEDICAL DISC IMAGING ASS DEGENERATIO N AT C6-C7 LEVEL M542 CERVICALGIA 02-03-2017 [facility] M545 LOW BACK 01-13-2017 [facility] PAIN [facility] R109 UNSPECIFIED 01-13-2017 [facility] ABDOMINAL [facility] PAIN INC R110 NAUSEA 01-13-2017 [facility] INC Z8673 PERSONAL HX 01-13-2017 [facility] TIA & [facility] CEREB INC INFARCT NO RESID DEFICIT B40911 PAIN IN 01-05-2017 [place] LEFT HIP MEDICAL IMAGING ASS S59847B FRACTURE 01-05-2017 [facility] LT IMAGING ASS PUBIS INIT ENC CLOS FX [id number] OTHER SPEC 01-05-2017 [facility] FX LT PUBIS PHYSICIANS, INITIAL PLLC CLOS FRACTURE J209 ACUTE 11-30-2016 ISMAEL SIMMONS BRONCHITIS UNSPECIFIED Z6830 BODY MASS 11-30-2016 ISMAEL JR INDEX BMI 30.0-30.9 ADULT H903 SENSORINEUR 08-04-2016 [place] EAR NOSE AL HEARING AND THROAT LOSS BILATERAL H905 UNSPECIFIED 08-04-2016 [facility] P[facility] AL HEARING LOSS D539 NUTRITIONAL 06-08-2016 [facility] ANEMIA HEALTH UNSPECIFIED CAMPUS D62 ACUTE 06-08-2016 [facility] POSTHEMORRH HEALTH AGIC ANEMIA CAMPUS R410 DISORIENTAT 06-08-2016 [facility] ION HEALTH UNSPECIFIED CAMPUS V99901W FX UNS PART 06-08-2016 [facility] NECK LT HEALTH FEMUR CAMPUS SUBSQT CLOS FX RTN W02592 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 M659 SYNOVITIS 04-27-2016 [facility] & TENOSYNOVIT DUBILIER IS UNSPECIFIED R2242 LOCALIZED 04-27-2016 [facility] SWELLING MEDICAL MASS AND IMAGING ASS LUMP LEFT LOWER LIMB V021SVU INFECTION 04-27-2016 [facility] FOLLOWING [facility] PROCEDURE INC INITIAL ENCOUNTER Z4889 ENCOUNTER 04-27-2016 [facility] FOR OTHER [facility] SPECIFIED INC SURGICAL AFTERCARE Z471 AFTERCARE 04-23-2016 [place] FOLLOWING MEDICAL JOINT IMAGING ASS REPLACEMENT SURGERY Z7401 BED 04-09-2016 [facility] CONFIN[facility] AMBULANCE STATUS SERVICE I129 HYPERTENSIV 04-05-2016 [facility] Johnson CKD [facility] W/STAGE 1-4 HOSPITAL P CKD OR UNS CKD X21439 ASHD LAC VIEUX 04-05-2016 [facility]ONZALEZ [facility] W/UNS INC ANGINA PECTORIS P15006 PAIN IN 04-05-2016 [place] LEFT THIGH MEDICAL IMAGING ASS N179 ACUTE 04-05-2016 [facility] P UNSPECIFIED R079 CHEST PAIN 04-05-2016 [place] UNSPECIFIED MEDICAL IMAGING ASS U13619I FX UNS PART 04-05-2016 [facility] NECK LT PHYSICIANS, FEMUR PLLC INITIAL ENC CLOS FX [id number] UNS 04-05-2016 [facility] INTRACAPSUL MEDICAL AR FX LT IMAGING ASS FEMUR INIT ENC CLOS FX [id number] UNSPECIFIED 04-05-2016 [facility] FALL PHYSICIANS INITIAL GROUP ENCOUNTER Z9889 OTHER 04-05-2016 [place] SPECIFIED MEDICAL POSTPROCEDU IMAGING ASS [facility] STATES R0781 PLEURODYNIA 03-30-2016 [facility] R0789 OTHER CHEST 03-30-2016 [facility] PAIN PHYSICIANS, PLLC R911 SOLITARY 03-30-2016 [place] PULMONARY MEDICAL NODULE IMAGING ASS R1031 RIGHT LOWER 03-23-2016 [facility] QUADRANT PHYSICIANS PAIN GROUP R197 DIARRHEA 02-25-2016 [facility] UNSPECIFIED ANESTH OF THE BLUE L299 PRURITUS 02-21-2016 ISMAEL UNSPECIFIED YOJANA D48563 SPONDYLOSIS 02-21-2016 ISMAEL W/O Y[place]NA MYELOPATH/R ADICULPATHY [...] UNSPECIFIED 08-02-2015 [facility] ANEMIA [facility] INC 36309 UNS 08-02-2015 [facility] GASTRITIS&G [facility] ASTRODUODIT INC IS W/O MENTION HEMORR 94014 PAIN IN 08-02-2015 [place] JOINT MEDICAL PELVIC IMAGING ASS REGION AND THIGH 00998 OTHER 07-15-2015 NARINDER DYSPNEA AND CO AMBULANCE RESPIRATORY TAXIN ABNORMALITI ES 0093 DIARRHEA OF 07-02-2015 [facility]MA[facility] PRESUMED [place]NA INFECTIOUS ORIGIN 4011 ESSENTIAL 07-02-2015 [facility] HYPERTENSIO [place]NA N, BENIGN 5853 CHRONIC 07-02-2015 [facility] KIDNEY [place] DISEASE STAGE III (MODERATE) 7242 LUMBAGO 07-02-2015 [place] [address] OTHER 07-02-2015 ISMAEL MALAISE AND YOJANA FATIGUE V8533 BODY MASS 07-02-2015 ISMAEL INDEX YOJANA 33.0-33.9 ADULT 7295 PAIN IN 06-24-2015 [facility] SOFT MEDICAL TISSUES OF IMAGING ASS LIMB 7823 EDEMA 06-24-2015 [facility] 2724 OTHER AND 06-21-2015 ISMAEL UNSPECIFIED [place] HYPERLIPIDE SHERYL 24452 DEHYDRATION 06-21-2015 ISMAEL YOJANA 412 OLD 06-21-2015 IS[facility] MYOCARDIAL [place] INFARCTION 89929 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 [facility] NODE [place] DYSFUNCTION 89688 ATROPHIC 06-21-2015 [facility] GASTRITIS [place] WITHOUT MENTION OF HEMORRHAGE 12345 OTHER 06-21-2015 [facility] ALTERATION [place] [address] FEVER 06-21-2015 ISMAEL UNSPECIFIED YOJANA 48661 ALTERED 06-21-2015 [facility] MENTAL MEDICAL STATUS IMAGING ASS 7862 COUGH 06-21-2015 [facility] V1079 PERSONAL HX 06-21-2015 ISMAEL OTH [place] LYMPHATIC&H EMATOPOIETI C NEOPLASM V1254 PERSONAL HX 06-21-2015 ISMAEL TIA & CI [place]NA W/O RESIDUAL DEFICITS 5990 URINARY 06-12-2015 [facility] TRACT PHYSICIANS INFECTION LA SITE NOT SPECIFIED 77039 OTH & UNS E 05-28-2015 [facility] COLI [facility] INFECTION INC CLASS ELSW UNS SITE 56319 UNSPECIFIED 05-24-2015 [place] [address] GENERALIZED 05-24-2015 ISMAEL YOJANA OSTEOARTHRO SIS UNSPECIFIED SITE 7213 LUMBOSACRAL 05-24-2015 ISMAEL Y[place]JANA SPONDYLOSIS WITHOUT MYELOPATHY V8534 BODY MASS 05-24-2015 ISMAEL INDEX YOJANA 34.0-34.9 ADULT 89629 ABDOMINAL 04-15-2015 [facility] PAIN RIGHT PHYSICIANS LOWER GROUP QUADRANT 42915 PAIN IN 03-26-2015 [facility] JOINT, MEM [facility]OS[facility] SHOULDER INC REGION 19851 DIARRHEA 03-26-2015 [facility] INC 01944 OTH MALIG 03-01-2015 [facility] LYMPHOMAS MEDICAL UNS SITE IMAGING ASS XTRANOD&SEBAS ID ORGN 5932 ACQUIRED 03-01-2015 [place] CYST OF MEDICAL KIDNEY IMAGING ASS 60289 ABDOMINAL 03-01-2015 [facility] PAIN, LEFT [facility] LOWER INC QUADRANT 51710 ESOPHAGEAL 01-30-2015 [facility] REFLUX PHYS SURG CTR 86110 GASTR ULCR 01-30-2015 SCIENTOLOGIST UNS PHYS SURG ACUT/CHRN CTR W/O HEMOR PERF/OBST 5379 UNSPECIFIED 01-30-2015 [facility] DISORDER EMMA & OF STOMACH DUBILIER AND DUODENUM 74286 NAUSEA 01-30-2015 [facility] AL[facility] 67731 ABDOMINAL 01-30-2015 [facility] PAIN, [facility] EPIGASTRIC ANESTHESIA 61476 NONEXUDATIV 01-29-2015 [facility] 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 64644 REGULAR 01-29-2015 [facility] ASTIGMATISM [facility] INSTITUTE 78915 OTHER 01-25-2015 [facility] SPECIFIED [place] ERYTHEMATOU S CONDITION OTHER 460 ACUTE 12-19-2014 ISMAEL NASOPHARYNG [facility]NA ITIS 68014 ASTHMA, 12-19-2014 [facility]EL UNSPECIFIED Y[place]NA , UNSPECIFIED STATUS 4660 ACUTE 12-16-2014 [facility] BRONCHITIS [facility] INC V8535 BODY MASS 12-07-2014 [facility] INDEX YOJANA 35.0-35.9 ADULT 4779 ALLERGIC 10-30-2014 ISMA[facility] RHINITIS [place] CAUSE UNSPECIFIED 4019 UNSPECIFIED 10-18-2014 [facility] ESSENTIAL [facility] HYPERTENSIO INC N 37579 COR 10-18-2014 [facility] ATHEROSLERO [facility] UNSPEC INC TYPE VESSEL LAC VIEUX/MORRO T 78268 CHEST PAIN 10-18-2014 [place] [facility] UNSPECIFIED SERV FOUNDATION 32642 CORONARY 10-11-2014 [facility] OSIS LAC VIEUX MEDICAL G CORONARY ARTERY 7851 PALPITATION 10-11-2014 [facility] MEDICAL G 45899 PRECORDIAL 10-11-2014 [facility] MEDICAL G 4610 ACUTE 10-01-2014 ISMAEL MAXILLARY [place] SINUSITIS 4720 CHRONIC 10-01-2014 ISMAEL RHINITIS [place] 7881 DYSURIA 10-01-2014 ISMAEL Y[place]NA 54119 SHORTNESS 09-18-2014 [facility] MEDICAL IMAGING ASS 4139 OTHER AND 09-12-2014 [facility] UNSPECIFIED [facility] H[facility] ANGINA INC PECTORIS 5758 OTHER 09-12-2014 [facility] SPECIFIED [facility] DISORDER OF INC GALLBLADDER 78114 OTHER 09-12-2014 [facility] CONVULSIONS [facility] INC 21187 OTHER CHEST 09-12-2014 [facility] EMERGENCY PHYS V140 PERSONAL 09-12-2014 [facility] HISTORY OF [facility] ALLERGY TO [facility] P PENICILLIN V148 PERSONAL 09-12-2014 [facility] HISTORY [facility] P SPEC MEDICINAL AGTS V1582 PERS HX 09-12-2014 [facility] TOBACCO USE [facility] PRESENTING INC [facility] V719 OBSERVATION 09-12-2014 [place] FOR MEDICAL UNSPECIFIED IMAGING ASS SUSPECTED CONDITION 13862 UNSPEC 08-28-2014 IS[facility]EL DISORDERS [place]NA BURSAE&TEND ONS SHOULDER REGION 10437 CONTUSION 08-28-2014 ISMAEL OF SHOULDER [place]NA REGION [...] MYOSITIS 7827 SPONTANEOUS 08-06-2014 [facility] ECCHYMOSES [facility] 43625 DIVERTICULI 07-24-2014 [facility] TIS OF [place] COLON 7243 SCIATICA 07-16-2014 [facility] HOSP INC 5693 HEMORRHAGE 05-21-2014 IS[facility]EL OF RECTUM [place] AND ANUS 7802 SYNCOPE AND 05-21-2014 [facility] COLLAPSE [place] 5589 OTH&UNSPEC 05-09-2014 [facility] NONINFECTIO [facility] P GASTROENTER ITIS&COLITI S 45541 NAUSEA WITH 05-09-2014 [facility] VOMITING [facility] P E9390 ANTIDEPTSSN 05-09-2014 [facility] T CAUS [facility] P EFFECT THERAPEUTIC USE 56816 OTHER 05-08-2014 [facility] SPECIFIED N EMERGENCY CARDIAC PHYS DYSRHYTHMIA S 5789 UNSPECIFIED 05-08-2014 ISMAEL HEMORRHAGE [place] OF GASTROINTES TINAL TRACT 7852 UNDIAGNOSED 05-08-2014 [facility] MEDICAL CARDIAC SERV MURMURS FOUNDATIO 496 CHRONIC 03-06-2014 [facility] AIRWAY MEDICAL OBSTRUCTION IMAGING ASS NEC 5110 PLEURISY 03-06-2014 [facility] WITHOUT [place]NA MENTION EFFUS/CURRE NT TB 7197 DIFFICULTY 03-06-2014 [facility] IN WALKING MEDICAL IMAGING ASS 74207 CONTUSION 03-06-2014 ISMAEL OF FOOT [place]NA 8488 OTHER 02-26-2014 [facility] SPECIFIED N EMERGENCY SITES OF PHYS SPRAINS AND STRAINS V141 PERSONAL 02-26-2014 [facility] HOSP ALLERGY INC OTHER ANTIBIOTIC AGENT 95308 UNSPECIFIED 01-26-2014 [facility] VIRAL N EMERGENCY INFECTION PHYS IN CCE & UNS SITE 7245 UNSPECIFIED 01-26-2014 [facility] BACKACHE N EMERGENCY PHYS 0091 COLITIS 01-04-2014 [facility] ENTERIT&GAS HOME TROENTERIT MEDICAL INF ORIGIN EQUIPME 436 ACUTE BUT 01-04-2014 [facility] ILL-DEFINED HOME MEDICAL CEREBROVASC EQUIPME ULAR DISEASE 7231 CERVICALGIA 10-24-2013 [facility] HOSP INC 3674 PRESBYOPIA 07-03-2013 [facility] V431 LENS 07-03-2013 [facility] REPLACED BY EYE OTHER INSTITUTE MEANS 7224 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-30-2013 [facility] [place] 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 70831 MACULAR 04-04-2013 T[facility] WINTER DON N OF RETINA UNSPECIFIED 40472 STRABISMIC 03-22-2013 [place] [facility] AMBLYOPIA SERV FOUNDATIO 10713 OTHER 03-22-2013 [place] MEDICAL VITREOUS SERV OPACITIES FOUNDATIO 8052 CLOS FX 02-27-2013 [facility] DORS DON VERTEBRA W/O MENTION SP CORD INJURY 68755 LEUKOCYTOSI 02-23-2013 [facility] S EMERGENCY UNSPECIFIED SERVICES V5878 AFTERCARE 02-23-2013 [facility] FOLLOW EMERGENCY SURGERY [place] 424[address] ACUTE PAIN 02-22-2013 [facility] DUE TO EMERGENCY TRAUMA SERVICES 53873 PATHOLOGIC 02-22-2013 [place] FRACTURE OF ANESTHESIA VERTEBRAE GROUP PS V7283 OTHER 02-21-2013 [facility] [place] SPECIFIED RADIOLOGY PRE-OPERATI VE EXAMINATION 26709 DISPLCMT 02-20-2013 [facility] LUMBAR MEDICAL INTERVERT IMAGING ASS DISC W/O MYELOPATHY 83348 SPINAL STEN 02-20-2013 [facility] LUMB REG MEDICAL W/O IMAGING ASS NEUROGENIC CLAUDICATIO N E8888 OTHER FALL 02-20-2013 [facility]ERGENCY SERVICES 6259 UNSPEC 02-15-2013 [facility] SYMPTOM MEDICAL ASSOC IMAGING ASS W/FEMALE GENITAL ORGANS 7840 HEADACHE 02-15-2013 [facility] 8470 NECK SPRAIN 02-15-2013 [facility] AND STRAIN EMERGENCY SERVICES 8472 LUMBAR 02-15-2013 [facility] SPRAIN AND EMERGENCY STRAIN SERVICES 8500 CONCUSSION 02-15-2013 [facility] WITH NO EMERGENCY LOSS OF SERVICES CONSCIOUSNE SS 9222 CONTUSION 02-15-2013 [facility] OF EMERGENCY ABDOMINAL SERVICES WALL 84890 CONTUSION 02-15-2013 [facility] OF HIP [facility] INC 27200 HEAD 02-15-2013 [place] INJURY, MEDICAL UNSPECIFIED IMAGING ASS V4364 HIP JOINT 02-15-2013 [place] REPLACEMENT MEDICAL BY OTHER IMAGING ASS MEANS 4659 ACUTE URIS 02-13-2013 [facility] OF DON UNSPECIFIED SITE 7804 DIZZINESS 02-13-2013 [facility] AND DON GIDDINESS 56029 PAIN IN 01-18-2013 [facility] JOINT, MEM [facility]OS[facility] MULTIPLE INC SITES 61167 PAIN IN 01-17-2013 [facility] JOINT, DON LOWER LEG 9597 INJURY 01-17-2013 [facility] OTHER&UNSPE DON CIFIED KNEE LEG ANKLE&FOOT 82463 UNSPECIFIED 12-27-2012 [place] [address] METHICILLIN 12-23-2012 [facility] RESISTANT [facility] STAPHYLOCOC INC CUS AUREUS 10845 OTHER 12-23-2012 [facility] DISEASES OF [facility] H[facility] NASAL INC CAVITY AND SINUSES 55752 NASAL 12-06-2012 [facility] MUCOSITIS DON ULCERATIVE 7078 CHRONIC 12-06-2012 [facility] ULCER OF MEM HOSP OTHER INC SPECIFIED SITE 3804 IMPACTED 08-03-2012 [facility] CERUMEN [place] 70744 CHRONIC 08-03-2012 [facility] FATIGUE DON SYNDROME 80200 OTHER 06-22-2012 [facility] CHRONIC DON PAIN 7873 FLATULENCE 06-17-2012 [facility] ERUCTATION DON AND GAS PAIN 85695 OTHER 06-03-2012 [facility] SPECIFIED DON TYPES OF CYSTITIS 4293 CARDIOMEGAL 05-14-2012 [facility] MEDICAL IMAGING ASS 44017 NONSPECIFIC 05-14-2012 [facility] EMERGENCY ELECTROCARD SERVICES IOGRAM V1090 PERSONAL 05-14-2012 [place] HISTORY MEDICAL UNSPECIFIED IMAGING ASS MALIGNANT NEOPLASM V711 OBSERVATION 05-14-2012 [facility] FOR [facility] SUSPECTED IMAGING ASS MALIGNANT NEOPLASM OTHER 04-28-2012 NEW MALIGNANT [place] [facility] OF SPLEEN 3898 OTHER 02-17-2012 [facility] SPECIFIED DON FORMS OF HEARING LOSS 70125 GASTROJEJ 02-17-2012 [facility] ULCR UNS DON ACUT/CHRN W/O HEMOR PERF/OBST 79003 PAIN IN 01-06-2012 [facility] UNSPECIFIED 6160 CERVICITIS 12-16-2011 [facility] AND MEDICAL ENDOCERVICI IMAGING ASS TIS 6203 ACQUIRED 12-16-2011 [facility] ATROPHY OF MEDICAL OVARY AND IMAGING ASS FALLOPIAN TUBE 6219 UNSPECIFIED 12-16-2011 [facility] DISORDER MEDICAL OF UTERUS IMAGING ASS 51832 OSTEOARTHRO 12-11-2011 [facility] S INVLV MX DON [place]IT[place] [address] HEMATURIA 11-30-2011 [facility] UNSPECIFIED DON 65005 OTHER 11-30-2011 [facility] SPECIFIED DON DISORDERS OF URINARY TRACT 18626 UNSPECIFIED 10-19-2011 [facility] OTALGIA DON 95829 MUSCLE 10-19-2011 [facility] WEAKNESS DON (GENERALIZE D) 43326 DIVERTICULO 07-22-2011 [facility] SIS OF DON COLON 1104 DERMATOPHYT 07-10-2011 [facility] OSIS OF FOOT 9168 OTH&UNS SUP 07-07-2011 [facility] INJR HIP DON THI LEG&ANK W/O MENTION INF 9190 ABRASION/FR 06-26-2011 [facility]URN EMERGENCY OTH MX&UNS SERVICES SITE W/O INF 5950 ACUTE 05-28-2011 NEW CYSTITIS [facility] 6929 CONTACT 05-22-2011 [facility] DERMATITIS& OTHER [facility] DUE UNSPEC CAUSE 7011 ACQUIRED 05-22-2011 [facility] KERATODERMA 76159 OTHER 04-20-2011 [facility] SPECIFIED DON CIRCULATORY SYSTEM DISORDERS 64981 CONTUSION 04-20-2011 [facility] MULTIPLE DON SITES SHOULDER&UP PER ARM 5952 OTHER 02-05-2011 [facility] CYSTIT[facility] P 1129 CANDIDIASIS 01-07-2011 [facility] OF DON UNSPECIFIED SITE 4280 CONGESTIVE 01-07-2011 [facility] HEART DON FAILURE UNSPECIFIED 2768 HYPOPOTASSE 12-31-2010 [facility] 8910 OPEN WOUND 10-22-2010 [facility] KNEE DON LEG&ANK WITHOUT MENTION COMP V5832 ENCOUNTER 10-22-2010 [facility] FOR REMOVAL DON OF SUTURES 01989 PHACOLYTIC 08-06-2010 [facility] 4618 OTHER ACUTE 07-29-2010 [facility] SINUSITIS DON 1880 MALIGNANT 06-26-2010 [facility] NEOPLASM OF H UROLOGY [facility] URINARY BLADDER 09355 SPASM OF 06-06-2010 [facility] MUSCLE DON 87390 DEGEN 05-04-2010 [facility] LUMBAR/LUMB EMERGENCY [facility] RAL DISC OTHER MALIG 04-22-2010 NEW LYMPHOMAS [place] LYMPH NODES [facility] MULTIPLE SITES V6709 FOLLOW-UP 01-17-2010 [facility]THO EXAMINATION AND HAND FOLLOWING SURGEONS OTHER [facility] SURGERY 6256 FEMALE 01-13-2010 [facility], STRESS DON R INCONTINENC E V7651 SPECIAL 01-13-2010 [facility], SCREENING DON R FOR MALIGNANT NEOPLASMS COLON 1629 MALIGNANT 09-09-2009 [facility] NEOPLASM [facility] SITE 4148 OTHER SPEC 08-30-2009 [facility], FORMS DON R CHRONIC ISCHEMIC HEART DISEASE 8208 CLOSED 08-30-2009 [facility], FRACTURE DON R UNSPECIFIED PART NECK FEMUR 55617 POSTPROCEDU 08-21-2009 [facility] PROF SERV 81311 OTHER 08-20-2009 PATHOLOGY & CLOSED CYTOLOGY TRANSCERVIC LAB AL FRACTURE OF FEMUR 48115 INF DUE OTH 08-19-2009 [facility] GM-NEGATIVE INC ORGANISMS CCE & UNS SITE 58293 ABDOMINAL 08-19-2009 [facility] OTHER EMERGENCY SPECIFIED SERVICES SITE ASSOCIATES 19250 CLOSED 08-19-2009 [facility] DIS[facility] AMB[facility]ANCE OF HIP SERVICE UNSPECIFIED SITE 9596 INJURY 08-19-2009 [facility] OTHER AND AMBULANCE UNSPECIFIED SERVICE HIP AND THIGH E8859 FALL FROM 08-19-2009 [facility] [place] OTHER EMERGENCY SLIPPING SERVICES TRIPPING OR ASSOCIATES STUMBLING 30545 UNSPECIFIED 08-14-2009 OR [facility] SERV OPACITY FOUNDATIO V0382 NEED PROPH 07-31-2009 [facility], VACCINATION DON R AGAINST STREP PNEUMONE 57214 SPRAIN AND 06-10-2009 [facility], STRAIN OF DON R UNSPECIFIED SITE OF WRIST 67394 UNSPECIFIED 06-10-2009 [facility], SITE OF DON R ANKLE SPRAIN AND STRAIN E8490 PLACE OF 06-07-2009 [place] [facility] E8844 ACCIDENTAL 06-07-2009 [facility] FALL FROM [facility]GENCY BED SERVICES ASS[facility] 54833 SECONDARY 09-19-2008 [facility] SERV EDEMA FOUNDATIO 81118 SPONDYLOSIS 08-22-2008 NEW UNSPEC [place] SITE W/O CLINIC PSC MENTION MYELOPATHY V1072 PERSONAL 08-22-2008 NEW HISTORY OF [place] [facility] PSC DISEASE 83368 ATRIAL 07-01-2008 [facility] N 85589 ABDOMINAL/P 07-01-2008 [facility] SWELLING MASS/LUMP UNSPEC SITE 04478 UNSPECIFIED 03-02-2008 REMBERTO ARAMBULA R OSTEOPOROSI S [...] R T VIRU S 0.5 ML DOSA Spreadsave IM USE Procedures Procedure DOS Code Location Performer Comment URNLS DIP [address] 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 METABOLIC 7 [facility] PANEL [place] [address] HEAD/BRAI 7 [facility] N W/O PARTHA PARTHA CONTRAST MATERIAL RADIOLOGI [address] C 7 [facility] EXAMINATI PARTHA PARTHA ON CHEST SINGLE VIEW FRONTAL CULTURE [address] BACTERIAL 7 [facility] PARTHA PARTHA QUANTTATI VE COLONY COUNT URINE RADEX [address] HUMERUS 7 [facility] MINIMUM 2 PARTHA PARTHA VIEWS ECG [address] ROUTINE 7 [facility] ECG PARTHA PARTHA W/LEAST 12 LDS TRCG ONLY W/O I&R COLLECTIO [address] N VENOUS 7 [facility] BLOOD PARTHA PARTHA VENIPUNCT URE BLOOD [address] COUNT 7 [facility] COMPLETE PARTHA PARTHA AUTO&AUTO DIFRNTL WBC BASIC 08137 [facility] PANEL INC INC CALCIUM TOTAL BASIC 74462 [facility] METABOLIC 7 [facility] PANEL INC INC CALCIUM TOTAL BLOOD 11580 [facility] COUNT 7 [facility] COMPLETE INC INC AUTO&AUTO DIFRNTL WBC NEBULIZER E0570 MICHELLE MARTINEZ WITH 7 [facility] MEDICAL MEDICAL R EQUIPME EQUIPME RADIOLOGI 80672 [facility] EXAM 7 MEDICAL CHEST 2 IMAGING VIEWS ASS FRONTAL&L ATERAL ECG 54039 [facility] ROUTINE 7 PHYSICIAN ECG S GROUP W/LEAST 12 LDS I&R ONLY ECG 01856 [facility] ROUTINE 7 [facility] ECG INC INC W/LEAST 12 LDS TRCG ONLY W/O I&R INTERROGA 96908 [facility] RIKI TION EVAL 7 PHYSICIAN REMOTE S GROUP </90 D 1/2/CLIN TECH LEAD PM ECG 54718 [facility] ROUTINE 7 [facility] ECG INC INC W/LEAST 12 LDS TRCG ONLY W/O I&R ECG 79882 [facility] RIKI ROUTINE 7 PHYSICIAN ECG S GROUP W/LEAST 12 LDS I&R ONLY DUP-SCAN 39510 [facility] XTR VEINS 7 MEDICAL IMAGING UNILATERA ASS L/LIMITED STUDY COLLECTIO 89630 [facility] N VENOUS 7 [facility] BLOOD INC INC VENIPUNCT [facility] G0378 [facility] OBSERVATI 7 [facility] ON INC INC SERVICE PER HOUR NONINVASI 94251 [facility] VE 7 [facility] EAR/PULSE INC INC OXIMETRY SINGLE DETER BLOOD 95181 [facility] COUNT 7 [facility] COMPLETE INC INC AUTO&AUTO DIFRNTL WBC BASIC 68327 [facility] METABOLIC 7 [facility] PANEL INC INC CALCIUM TOTAL BASIC 47872 [facility] METABOLIC 7 [facility] [place] [address] [facility] NEW/RPLC 7 [facility] PRM INC INC PACEMAKER W/TRANSV ELTRD VENTR RADIOLOGI 15794 [facility] C 7 [facility] EXAMINATI INC INC ON CHEST SINGLE VIEW FRONTAL BLOOD 84818 [facility] COUNT 7 [facility] COMPLETE INC INC AUTO&AUTO DIFRNTL WBC PACEMAKER C1785 [facility] DUAL 7 [facility] CHAMBER INC INC RATE-RESP ONSIVE PRESSURIZ 49963 [facility] ED/NONPRE 7 [facility] SSURIZED [place] [address] [facility] INFUSION 7 [facility] THERAPY/P INC INC ROPHYLAXI S /DX 1ST TO 1 HR THERAPEUT 50038 [facility] IC 7 [facility] INJECTION INC INC IV PUSH EACH NEW DRUG ECG 27398 [facility] RIKI ROUTINE 7 PHYSICIAN ECG S GROUP W/LEAST 12 LDS I&R ONLY HOSPITAL G0378 [facility] OBSERVATI 7 [facility] ON INC INC SERVICE PER HOUR ANES 11583 [facility] PERMANENT 7 ANESTH OF THE TRANSVENO BLUE US PACEMAKER INSERTION LEAD C1898 [facility] PACEMKR 7 [facility] OTH THAN INC INC TRNS VDD SINGLE PASS ECG 64216 [facility] ROUTINE 7 [facility] ECG INC INC W/LEAST 12 LDS TRCG ONLY W/O I&R CREATININ 13683 [facility] E BLOOD 7 [facility] [place] [address] [facility] UREA 7 [facility] NITROGEN INC INC QUANTITAT RIGO COLLECTIO 45823 [facility] N VENOUS 7 [facility] BLOOD INC INC VENIPUNCT URE CT THORAX 94404 [place] [facility] 7 MEDICAL W/CONTRAS IMAGING T ASS MATERIAL LOC Q9967 [facility] [phone] [facility] MG/ML INC INC IODINE CONCENTRA TION PER ML ECG 23587 [facility] ROUTINE 7 [facility] ECG INC INC W/LEAST 12 LDS TRCG ONLY W/O I&R ECG 05705 [facility] RIKI ROUTINE 7 PHYSICIAN ECG S GROUP W/LEAST 12 LDS I&R ONLY CV STRS 61170 [facility] TST 7 [facility] XERS&/OR INC INC RX CONT ECG TRCG ONLY INJECTION J2785 [facility] 7 [facility] REGADENOS INC INC ON 0.1 MG MYOCARDIA 38486 [facility] L SPECT 7 [facility] MULTIPLE INC INC STUDIES TECHNETIU A9502 [facility] Hernandez TC-99M 7 [facility] TETROFOSM INC INC IN DX PER STUDY DOSE ECG 92921 [facility] ROUTINE 7 [facility] ECG INC INC W/LEAST 12 LDS TRCG ONLY W/O I&R ECG 28924 [facility]I ROUTINE 7 [facility] ECG INC INC W/LEAST 12 LDS TRCG ONLY W/O I&R ECG 69329 [facility] ROUTINE 7 PHYSICIAN ECG S GROUP W/LEAST 12 LDS I&R ONLY XTRNL ECG 86423 [facility] & 48 HR 7 [facility] RECORDING INC INC ECHO 07287 [facility] TTHRC R-T 7 [facility] 2D INC INC W/WOM-MOD E COMPL SPEC&COLR D ECG 58027 [facility] ROUTINE 7 PHYSICIAN ECG S GROUP W/LEAST 12 LDS I&R ONLY ECG 75602 [facility] ROUTINE 7 [facility] ECG INC INC W/LEAST 12 LDS TRCG ONLY W/O I&R ECG 53383 [facility]O ROUTINE 7 [facility] ECG INC INC W/LEAST 12 LDS TRCG ONLY W/O I&R ECG 57539 [facility] GUEVARA JR ROUTINE 7 [facility] W/LEAST P 12 LDS I&R ONLY RADIOLOGI 56265 [facility] SALC[facility] C EXAM 7 [facility] CHEST 2 INC INC VIEWS FRONTAL&L ATERAL RADEX 63448 [facility] SPINE 7 MEDICAL CERVICAL IMAGING 4 OR 5 ASS VIEWS BLOOD 02607 [facility] COUNT 7 [facility] COMPLETE INC INC AUTO&AUTO DIFRNTL WBC BASIC 84580 [facility] METABOLIC 7 [facility] PANEL INC INC CALCIUM TOTAL CT PELVIS 07613 [facility] W/O 7 [facility] CONTRAST INC INC MATERIAL CT LOWER 30233 [place] [facility] EXTREMITY 7 MEDICAL W/O IMAGING CONTRAST ASS MATERIAL INJECTION J1100 ISMAEL GUEVARA JR 7 DEXAMETHO SONE SODIUM PHOSPHATE 1 MG COMPRE 40732 [place] E[facility] SIEM[facility] AUDIOMETR 6 NOSE AND CLAYR Y THROAT THRESHOLD EVAL SP RECOGNIJ TYMPANOME 48500 [place] [facility] TRY 6 NOSE AND CLARY THROAT BASIC 78346 COMBINED COMBINED METABOLIC 6 PHYSICIAN PHYSICIAN PANEL S LA S LA CALCIUM TOTAL BLOOD 96038 COMBINED COMBINED COUNT 6 PHYSICIAN PHYSICIAN COMPLETE S LA S LA AUTO&AUTO DIFRNTL WBC SMR PRIM 07637 [facility] SRC 6 [facility] GRAM/GIEM INC INC SA STAIN BCT FUNGI/YAMILKA L CELL 19514 [facility] COUNT 6 [facility] MISC BODY INC INC FLUIDS W/[place] [address] [facility] SURG 6 [facility] PATHOLOGY INC INC GROSS&SAJAN ROSCOPIC EXAM CYTP EVAL 99326 [facility] FINE 6 [facility] NEEDLE INC INC ASPIRATE INTERP & RE[place] [address] [facility] EXTREMITY 6 [facility] NON-VASC INC INC REAL-TIME IMG LMTD BIOPSY 27876 [facility] SOFT 6 [facility] TISSUE INC INC PELVIS&[place] [address] [facility] GUIDANCE 6 [facility] NEEDLE INC INC PLACEMENT IMG S&I CUL BACT 96469 [facility] XCPT 6 [facility] URINE INC INC BLOOD/STO OL AEROBIC ISOL ARTHROCEN 62228 [place] [facility] KAHLIL 6 MEDICAL LATRELL ASPIR&/IN IMAGING J MAJOR ASS JT/BURSA W/US RADEX HIP 24073 [place] [facility] ALL 6 MEDICAL UNILATERA IMAGING L WITH ASS PELVIS 1 VIEW AMBULANCE A0428 [facility] SERVICE 6 AMBULANCE AMBULANCE BLS SERVICE SERVICE [facility] TRANSPORT GROUND A0425 [facility] MILEAGE 6 AMBULANCE AMBULANCE PER SERVICE SERVICE STATUTE MILE RADIOLOGI 79514 [place] Z[facility] C 6 MEDICAL LATRELL EXAMINATI IMAGING ON CHEST ASS SINGLE VIEW FRONTAL RADIOLOGI 28344 [place] TYLER C 6 MEDICAL ANGELIKA EXAMINATI IMAGING ON CHEST ASS SINGLE VIEW FRONTAL AMB A0427 [facility] SERVICE 6 AMBULANCE AMBULANCE ALS SERVICE SERVICE EMERGENCY TRANSPORT LEVEL 1 OPTX FEM 01805 [facility] FX PROX 6 PHYSICIAN JAM END NCK S GROUP INT FIXJ/PROS TC RPLCMT RADIOLOGI 71723 [place] ABHILASH C 6 MEDICAL ANGELIKA EXAMINATI IMAGING ON FEMUR ASS MINIMUM 2 VIEWS ANESTHESI 04229 [facility] OPEN 6 ANESTH RAMO PROCEDURE OF THE S UPPER BLUE 2/3 FEMUR NOS GROUND A0425 [facility] MILEAGE 6 AMBULANCE AMBULANCE PER SERVICE SERVICE STATUTE MILE RADEX HIP 71037 [facility] 6 MEDICAL ANGELIKA UNILATERA IMAGING L WITH ASS PELVIS 2-3 VIEWS ECG 96612 [facility] ROGER ROUTINE 6 [facility] W/LEAST P 12 LDS I&R ONLY REPLACEME [id number] O[facility]I SALCIDO NT LT HIP 6 [facility] JOINT INC INC CERAMIC POLY SYNTH OPEN RADIOLOGI 49037 [place] ALL C 6 MEDICAL EXAMINATI IMAGING ON CHEST ASS SINGLE VIEW FRONTAL ANES 18419 [facility] LOWER 6 ANESTH SHE INTESTINE OF THE BLUE ENDOSCOPY DISTAL DUODENUM URNLS DIP 04884 ISMAEL GUEVARA JR 6 [place] DWI STICK/TAB LET RGNT NON-AUTO W/[place] [address] [place] [facility] ALL ABDOMEN & 6 MEDICAL PELVIS IMAGING W/O ASS CONTRAST MATERIAL INJECTION J1100 ISMAEL GUEVARA JR 6 [place] DWI DEXAMETHO SONE SODIUM PHOSPHATE 1 MG RADIOLOGI 80519 [facility] C EXAM 6 MEDICAL ANGELIKA CHEST 2 IMAGING VIEWS ASS FRONTAL&L ATERAL INJECTION J1030 ISMAEL GUEVARA JR 6 [place] DWI METHYLPRE DNISOLONE ACETATE 40 MG BASIC 94407 [facility] METABOLIC 6 [facility] PANEL INC INC CALCIUM TOTAL BLOOD 50407 [facility] SALC[facility]O COUNT 6 [facility] COMPLETE INC INC AUTO&AUTO DIFRNTL WBC COLLECTIO 39827 [facility] SALCIDO N VENOUS 6 [facility] BLOOD INC INC VENIPUNCT URE CYANOCOBA 02227 COMBINED COMBINED JEWEL 5 PHYSICIAN PHYSICIAN VITAMIN S LA S LA B-12 BLOOD 03829 COMBINED COMBINED COUNT 5 PHYSICIAN PHYSICIAN COMPLETE S LA S LA AUTO&AUTO DIFRNTL WBC BASIC 42036 COMBINED COMBINED METABOLIC 5 PHYSICIAN PHYSICIAN PANEL S LA S LA CALCIUM TOTAL URNLS DIP 85595 ISMAEL GUEVARA JR 5 [place] DWI STICK/TAB LET RGNT NON-AUTO W/O MICRSCP INFLUENZA Q2038 ISMAEL GUEVARA JR VACC 5 [place] DWI SPLIT VIRUS 3 YRS & > IM FLUZONE ADMINISTR G0008 ISMAEL GUEVARA JR ATION OF 5 [place] DWI INFLUENZA VIRUS VACCINE COLLECTIO 01490 [facility] N VENOUS 5 [facility] BLOOD INC INC VENIPUNCT URE BLOOD 31368 [facility] COUNT 5 [facility] COMPLETE INC INC AUTO&AUTO DIFRNTL WBC RADEX HIP 97128 [facility] SALCIDO 5 [facility] UNILATERA INC INC L COMPLETE MINIMUM 2 VIEWS RADEX HIP 80836 [facility] ALL 5 MEDICAL UNILATERA IMAGING L 1 VIEW ASS BASIC 26499 [facility] SALCIDO METABOLIC 5 [facility] PANEL INC INC CALCIUM TOTAL GROUND A0425 NARINDER NARINDER MILEAGE 5 CO CO PER AMBULANCE AMBULANCE STATUTE TAXIN TAXIN MILE AMB A0427 NARINDER ANRINDER SERVICE 5 CO CO ALS AMBULANCE AMBULANCE EMERGENCY TAXIN TAXIN TRANSPORT LEVEL 1 BASIC 20097 COMBINED COMBINED METABOLIC 5 PHYSICIAN PHYSICIAN PANEL S LA S LA CALCIUM TOTAL BLOOD 61968 COMBINED COMBINED COUNT 5 PHYSICIAN PHYSICIAN COMPLETE S LA S LA AUTO&AUTO DIFRNTL WBC COLLECTIO 56267 ISMAEL GUEVARA JR N VENOUS 5 [place] DWI BLOOD VENIPUNCT URE DUP-SCAN 75045 [place] [facility] ALL XTR VEINS 5 MEDICAL IMAGING UNILATERA ASS L/LIMITED STUDY OBSERVATI 29443 ISMAEL GUEVARA JR ON CARE 5 [place] DWI DISCHARGE MANAGEMEN T SBSQ 74470 ISMAEL GUEVARA JR OBSERVATI 5 [place] DWI ON CARE/DAY 25 MINUTES INITIAL 53180 ISMAEL GUEVARA JR OBSERVATI 5 [place] DWI ON CARE/[address] [place] [address] [facility] ALL HEAD/BRAI 5 MEDICAL N W/O IMAGING CONTRAST ASS MATERIAL RADIOLOGI 13088 [facility] ALL C EXAM 5 MEDICAL CHEST 2 IMAGING VIEWS ASS FRONTAL&L ATERAL URNLS DIP 44201 COMBINED COMBINED 5 PHYSICIAN PHYSICIAN STICK/TAB S LA S LA LET REAGENT AUTO MICROSCOP Y INJECTION J1335 [facility]O 5 [facility] ERTAPENEM INC INC SODIUM 500 MG THERAPEUT 88482 [facility] IC 5 [facility] PROPHYLAC INC INC TIC/DX INJECTION SUBQ/IM INJECTION J1100 ISMAEL GUEAVRA JR 5 [place] DWI DEXAMETHO SONE SODIUM PHOSPHATE 1 MG SUSCEPTIB 22414 [facility] LTY STDY 5 [facility] ANTIMICRB INC INC IAL MICRO/AGA R DILUTJ CULTURE 43774 [facility] BCT 5 [facility] ISOL&PRSM INC INC PTV ID ISOLATE EA URINE CULTURE 94377 [facility] BACTERIAL 5 [facility] INC INC QUANTTATI VE COLONY COUNT URINE URNLS DIP 23473 ISMAEL GUEVARA JR 5 [place] DWI STICK/TAB LET RGNT NON-AUTO W/O MICRSCP BASIC 75526 [facility] SALCIDO METABOLIC 5 [facility] PANEL INC INC CALCIUM TOTAL BLOOD 87327 [facility] SAL[facility]O COUNT 5 [facility] HEMATOCRI INC INC T IADNA-DNA 45281 [facility] /RNA GI 5 [facility] PTHGN INC INC MULTIP[place] T[place] 11[place] [place] [address] [facility] A[facility]OMEN & 5 MEDICAL LATRELL PELVIS IMAGING W/O ASS CONTRAST MATERIAL CREATININ 87535 [facility]O E BLOOD 5 [facility] INC INC COLLECTIO 73262 [facility] SAL[facility] N VENOUS 5 [facility] [place] [address] O[facility] SALCIDO UREA 5 [facility] NITROGEN INC INC QUANTITAT RIGO CULTURE 98710 [facility] BACTERIAL 5 [facility] INC INC QUANTTATI VE COLONY COUNT URINE ANES 54465 [facility] UPPER GI 5 [facility] ENDOSCOPY ANESTHESI [place] [address] SCIENTOLOGIST SCIENTOLOGIST TRANSORAL 5 PHYS SURG PHYS SURG BIOPSY CTR CTR SINGLE/MU LTIPLE SPECIAL 43312 CHIPPS MANUELA STAIN 5 EMMA & ORTEGA GROUP 1 DUBILIER MICROOR[place] NISMS I&[place] [address] CHIPPS MANUELA SURG 5 EMMA & ORTEGA PATHOLOGY DUBILIER GROSS&SAJAN ROSCOPIC EXAM DETERMINA 50162 [place] [facility] TION 5 EYE [facility] E STATE OPHTH 46585 [place] [employer] MEDICAL 5 EYE [facility] XM&EVAL INSTITUTE COMPRHNSV ESTAB PT 1/> FUNDUS 08633 [place] [facility] PHOTOGRAP 5 EYE [facility] HY INSTITUTE W/INTERPR ETATION & REPORT URNLS DIP 99818 ISMAEL GUEVARA JR 5 [place] DWI STICK/TAB LET RGNT NON-AUTO W/O MICRSCP CULTURE 90678 [facility] SAL[facility]IDO BACTERIAL 5 [facility] INC INC QUANTTATI VE COLONY COUNT URINE CULTURE 38755 [facility] SALCIDO BCT 5 [facility] ISOL&PRSM INC INC PTV ID ISOLATE EA URINE SUSCEPTIB 67942 [facility] SALC[facility]O LTY STDY 5 [facility] ANTIMICRB INC INC IAL MICRO/AGA R DILUTJ INJECTION J1040 ISMAEL GUEVARA JR 5 [place] DWI METHYLPRE DNISOLONE ACETATE 80 MG THERAPEUT 42708 ISMAEL GUEVARA JR IC 5 [place] DWI PROPHYLAC TIC/DX INJECTION SUBQ/IM THER 23106 [facility] SALCIDO PROPH/DX 5 [facility] NJX IV INC INC PUSH SINGLE/1S T SBST/DRUG IAADI 57180 [facility] SALC[facility]O INFLUENZA 5 [facility] B VIRUS INC INC IAADI 87278 [facility] SAL[facility]O INFFLUENZ 5 [facility] A A VIRUS INC INC CULTURE 62231 [facility] SALCIDO BACTERIAL 5 [facility] BLOOD INC INC AEROBIC W/ID ISOLATES BLOOD 15436 [facility] SALCIDO COUNT 5 [facility] COMPLETE INC INC AUTO&AUTO DIFRNTL WBC INJECTION J2405 O[facility]I OMARI 5 [facility] ONDANSETR INC INC ON HCL PER 1 MG RADIOLOGI 89854 [facility] [place] 5 MEDICAL LATRELL EXAMINATI IMAGING ON CHEST ASS SINGLE VIEW FRONTAL COMPREHEN 97331 [facility]I SALCIDO SIVE 5 [facility] METABOLIC INC INC PANEL URNLS DIP 80484 [facility] SALCIDO 5 [facility] STICK/TAB INC INC LET REAGENT AUTO MICROSCOP Y URNLS DIP 79858 ISMAEL ISMAEL JR 5 [place] DWI STICK/TAB LET RGNT NON-AUTO W/O MICRSCP CULTURE 61033 [facility] SALCIDO BACTERIAL 5 [facility] INC INC QUANTTATI VE COLONY COUNT URINE INJECTION J1100 ISMAEL GUEVARA 4 YO[place]NA [place] DEXAMETHO SONE SODIUM PHOSPHATE 1 MG THERAPEUT 41238 ISMAEL ISMAEL JR IC 4 [place] DWI PROPHYLAC TIC/DX INJECTION SUBQ/IM THERAPEUT 45070 ISMAEL ISMAEL JR IC 4 [place] DWI PROPHYLAC TIC/DX INJECTION SUBQ/IM INJECTION J1030 ISMAEL ISMAEL JR 4 [place] DWI METHYLPRE DNISOLONE ACETATE 40 MG ECHO 04784 OMARI SALCIDO TTHRC R-T 4 [facility] 2D INC INC W/WOM-MOD E COMPL SPEC&COLR D THERAPEUT 94152 ISMAEL ISMAEL JR IC 4 [place] DWI PROPHYLAC TIC/DX INJECTION SUBQ/IM INJECTION J1100 ISMAEL ISMAEL JR 4 [place] DWI DEXAMETHO SONE SODIUM PHOSPHATE 1 MG URNLS DIP 71242 ISMAEL ISMAEL JR 4 [place] DWI STICK/TAB LET RGNT NON-AUTO W/O MICRSCP MYOCARDIA 23512 [facility] [place] SPECT 4 [facility] MULTIPLE INC INC STUDIES TECHNETIU A9500 OMARI Hernandez TC-99M 4 [facility] SESTAMIBI INC INC DX PER STUDY DOSE CV STRS 61612 OMARI GUEVARA JR TST 4 [facility] XERS&/OR HOSPITAL RX CONT P ECG I&R ONLY INJECTION J2785 OMARI SALCIDO 4 [facility]OS[facility] REGADENOS INC INC ON 0.1 MG CV STRS 25096 OMARI SALCIDO TST 4 [facility] XERS&/OR INC INC RX CONT ECG TRCG ONLY ECG 68764 OMARI SALCIDO ROUTINE 4 [facility] ECG INC INC W/LEAST 12 LDS TRCG ONLY W/O I&R CREATINE 57330 OMARI SALCIDO KINASE 4 [facility] TOTAL INC INC ECG 24286 OMARI GUEVARA JR ROUTINE 4 [facility] W/LEAST P 12 LDS I&R ONLY BLOOD 33882 OMARI SALCIDO COUNT 4 [facility] COMPLETE INC INC AUTO&[place] [address] OMARI SALCIDO TROPONIN 4 [facility] [place] [address] OMARI SALCIDO THYROID 4 [facility] STIMULATI INC INC NG HORMONE TSH CREATINE 55843 OMARI SALCIDO KINASE MB 4 [facility] FRACTION INC INC ONLY RADIOLOGI 18137 LORAINE Alcala 4 MEDICAL LATRE[facility] EXAMINATI IMAGING ON CHEST ASS SINGLE VIEW FRONTAL COMPREHEN 45537 OMARI SALCIDO SIVE 4 [facility] METABOLIC INC INC PANEL ARTHROCEN 56430 ISMAEL HAASIS 4 [place] ASPIR&/IN J INTERM JT/BURS W/O US INFLUENZA Q2038 ISMAEL GUEVARA JR VACC 4 [place] DWI SPLIT VIRUS 3 YRS & > IM FLUZONE INJECTION J1040 ISMAEL GUEVARA JR 4 [place] DWI METHYLPRE DNISOLONE ACETATE [address] SHOULDER 4 JESSE MOLINA COMPLETE PARTHA PARTHA MINIMUM [address] IN[address] 4 JESSE MOLINA HYDROMORP PARTHA PARTHA ASAEL UP TO [address] IC 4 JESSE JESSE PROPHYLAC PARTHA PARTHA TIC/DX INJECTION SUBQ/IM INJECTION [id number] [facility] 4 JESSE JESSE ONDANSETR PARTHA PARTHA ON HCL PER 1 MG BASIC 30654 COMBINED COMBINED METABOLIC 4 PHYSICIAN PHYSICIAN PANEL S LA S LA CALCIUM TOTAL COLLECTIO 18593 ISMAEL GUEVARA JR N VENOUS 4 [place] DWI BLOOD VENIPUNCT URE CREATINE 74111 OMARI SALCIDO KINASE 4 [facility] TOTAL INC INC COLLECTIO 56172 ISMAEL GUEVARA JR N VENOUS 4 [place] DWI BLOOD VENIPUNCT URE BLOOD 03954 OMARI SALCIDO COUNT 4 [facility] COMPLETE INC INC AUTO&AUTO DIFRNTL WBC BASIC 15011 OMARI SALCIDO METABOLIC 4 [facility] PANEL INC INC CALCIUM TOTAL URNLS DIP 14093 ISMAEL GUEVARA JR 4 [place] DWI STICK/TAB LET RGNT NON-AUTO W/O MICRSCP URNLS DIP 31139 ISMAEL ISMAEL JR 4 [place] DWI STICK/TAB LET RGNT NON-AUTO W/O MICRSCP RADEX 70409 OMARI SALCIDO SPINE 4 [facility] LUMBOSACR INC INC AL MINIMUM 4 VIEWS URNLS DIP 15534 ISMAEL ISMAEL JR 4 [place] DWI STICK/TAB LET RGNT NON-AUTO W/O MICRSCP CULTURE 55202 OMARI SALCIDO BACTERIAL 4 [facility] INC INC QUANTTATI VE COLONY COUNT URINE INJECTION J1040 ISMAEL GUEVARA JR 4 [place] DWI METHYLPRE DNISOLONE ACETATE 80 MG THERAPEUT 87025 ISMAEL GUEVARA JR IC 4 [place] DWI PROPHYLAC TIC/DX INJECTION SUBQ/IM COLLECTIO 15629 ISMAEL GUEVARA JR N VENOUS 4 [place] DWI BLOOD VENIPUNCT URE BLOOD 19971 COMBINED COMBINED COUNT 4 PHYSICIAN PHYSICIAN COMPLETE S LA S LA AUTO&AUTO DIFRNTL WBC BASIC 11725 COMBINED COMBINED METABOLIC 4 PHYSICIAN PHYSICIAN PANEL S LA S LA CALCIUM TOTAL OBSERVATI 27586 ISMAEL GUEVARA JR ON CARE 4 [place] DWI DISCHARGE MANAGEMEN T SBSQ 77046 ISMAEL GUEVARA JR OBSERVATI 4 [place] DWI ON CARE/DAY 25 MINUTES ECG 05696 OMARI GUEVARA JR ROUTINE 4 [facility] W/LEAST P 12 LDS I&R ONLY ECG 28510 [facility] BAB ROUTINE 4 [facility] ECG EMERGENCY W/LEAST PHYS 12 LDS I&R ONLY ECHO 82323 [facility] R-T 4 MEDICAL EMELI 2D SERV W/WOM-MOD FOUNDATIO E COMPL SPEC&COLR D INITIAL 03690 ISMAEL GUEVARA JR OBSERVATI 4 [place] DWI ON CARE/DAY 50 MINUTES GROUND [facility] PER SERVICE SERVICE STATUTE MILE AMB A0427 [facility] SERVICE 4 AMBULANCE AMBULANCE ALS SERVICE SERVICE EMERGENCY TRANSPORT LEVEL 1 URNLS DIP 66352 ISMAEL GUEVARA JR 4 [place] DWI STICK/TAB LET RGNT NON-AUTO W/O MICRSCP RADEX 43754 [facility]OT 4 MEDICAL LATRELL COMPLETE IMAGING MINIMUM 3 ASS VIEWS TECHNETIU A9567 OMARI Hernandez TC-99M 4 [facility] PENTETATE INC INC DX AEROSOL TO 75 MCI BASIC 34230 OMARI SALCIDO METABOLIC 4 [facility] PANEL INC INC CALCIUM TOTAL PULMONARY 48406 [place] [facility] 4 MEDICAL [facility]LL VENTILATI IMAGING ON & ASS PERFUSION IMAGING CREATINE 26208 OMARI SALCIDO KINASE MB 4 [facility] FRACTION INC INC ONLY TECHNETIU A9540 OMARI Hernandez TC-99M 4 [facility] MAA DX INC INC STDY DOSE UP TO 10 MCI ECG 67601 OMARI GUEVARA JR ROUTINE 4 [facility] W/LEAST P 12 LDS I&R ONLY RADIOLOGI 14729 [facility] C EXAM 4 [facility] CHEST 2 IMAGING VIEWS ASS FRONTAL&[place] [address] OMARI SALCIDO TROPONIN 4 [facility]P QUANTITAT INC INC RIGO COLLECTIO 79269 OMARI SALCIDO N VENOUS 4 [facility] BLOOD INC INC VENIPUNCT URE FIBRIN 89898 OMARI SALCIDO DGRADJ 4 [facility] PRODUCTS INC INC D-DIMER QUAL/SEMI NAYE CREATINE 90553 OMARI SALCIDO KINASE 4 [facility] TOTAL INC INC ECG 62616 OMARI SALCIDO ROUTINE 4 [facility] ECG INC INC W/LEAST 12 LDS TRCG ONLY W/O I&R RADIOLOGI 99648 [facility] C EXAM 4 MEDICAL LATRELL CHEST 2 IMAGING VIEWS ASS FRONTAL&[place] [address] OMARI SALCIDO LIPASE 4 [facility] INC INC BLOOD 52361 OMARI SALCIDO COUNT 4 [facility] COMPLETE INC INC AUTO&AUTO DIFRNTL WBC URNLS DIP 92214 [facility] SALCIDO 4 [facility] STICK/TAB INC INC LET REAGENT AUTO MICROSCOP Y COMPREHEN 33311 OMARI SALCIDO SIVE 4 [facility] METABOLIC INC INC PANEL URNLS DIP 82572 OMAR[facility] SALCIDO 4 [facility] STICK/TAB INC INC LET REAGENT AUTO MICROSCOP Y IAADI 18931 OMARI SALCIDO INFFLUENZ 4 [facility] A A VIRUS INC INC IAADI 71939 OMARI SALCIDO INFLUENZA 4 [facility] B VIRUS INC INC STANDARD K0001 MICHELLE PIMENTELI 4 HOME HOME R MEDICAL MEDICAL EQUIPME EQUIPME STANDARD K0001 MICHELLE PIMENTELI 4 HOME HOME R MEDICAL MEDICAL EQUIPME EQUIPME CULTURE 47059 OMARI SALCIDO BACTERIAL 4 [facility] INC INC QUANTTATI VE COLONY COUNT URINE STANDARD K0001 MICHELLE PIMENTELI 3 HOME HOME R MEDICAL MEDICAL EQUIPME EQUIPME SEDIMENTA 27716 OMARI SALCIDO TION RATE 3 [facility] RBC INC INC NON-AUTOM ATED BLOOD 11020 OMARI SALCIDO COUNT 3 [facility] COMPLETE INC INC AUTO&AUTO DIFRNTL WBC STANDARD K0001 MICHELLE PIMENTELI 3 HOME HOME R MEDICAL MEDICAL EQUIPME EQUIPME STANDARD K0001 MICHELLE PIMENTELI 3 HOME HOME R MEDICAL MEDICAL EQUIPME EQUIPME STANDARD K0001 MICHELLE PIMENTELI 3 HOME HOME R MEDICAL MEDICAL EQUIPME EQUIPME CULTURE 15219 OMARI SALCIDO BACTERIAL 3 [facility] INC INC QUANTTATI VE COLONY COUNT URINE URNLS DIP 60280 ISMAEL GUEVARA JR 3 YOJANA DWI STICK/TAB LET RGNT NON-AUTO W/O MICRSCP THERAPEUT 21072 ISMAEL GUEVARA JR IC 3 YOJANA DWI PROPHYLAC TIC/DX INJECTION SUBQ/IM INJECTION J1100 ISMAEL GUEVARA JR 3 [place]NA DWI DEXAMETHO SONE SODIUM PHOSPHATE 1 MG STANDARD K0001 MICHELLE PIMENTELI 3 HOME HOME R MEDICAL MEDICAL EQUIPME EQUIPME OPHTH 02492 [place] [facility] 3 EYE ORTEGA XM&EVAL INSTITUTE COMPRE NEW PT 1/> VST DETERMINA 81083 [place] [employer] TION 3 EYE ORTEGA REFRACTIV INSTITUTE E STATE STANDARD K0001 MICHELLE PIMENTELI 3 HOME HOME R MEDICAL MEDICAL EQUIPME EQUIPME RADEX 45460 [facility] [place] SPINE 3 [place] CERVICAL ORTHOPAED 2 OR 3 [facility] VIEWS RADEX 07816 [facility] TRA SPINE 3 [place] THORACIC ORTHOPAED 2 [place] [address] [facility] BLOOD/URI 3 CLINIC CLINIC C ACID LABORATO LABORATO COMPREHEN 58788 [facility] METABOLIC LABORATO LABORATO PANEL BLOOD 47788 [facility] [place] COUNT 3 [facility] COMPLETE LABORATO LABORATO AUTO&AUTO DIFRNTL WBC LACTATE 44365 [facility] [place] DEHYDROGE 3 CLINIC CLINIC NASE LDH LABORATO LABORATO COLLECTIO 49801 [facility] BLOOD LABORATO LABORATO VENIPUNCT URE STANDARD K0001 MICHELLE MICHELLEJALEN HERNANDEZCHAI 3 HOME HOME R MEDICAL MEDICAL EQUIPME EQUIPME INJECTION J1040 TYESHA ARAMBULA 3 DON DON METHYLPRE DNISOLONE ACETATE 80 MG STANDARD K0001 MICHELLE MAXWELL 3 HOME HOME R MEDICAL MEDICAL EQUIPME EQUIPME OPHTH 12728 [facility] MEDICAL 3 MEDICAL JR ORTEGA XM&EVAL SERV COMPRHNSV FOUNDATIO ESTAB PT 1/> STANDARD K0001 MICHELLE MAXWELL 3 HOME HOME R MEDICAL MEDICAL EQUIPME [facility] 29853 [facility] 3 EMERGENCY RAE IGN DAY SERVICES MANAGEMEN T 30 MIN/< ANESTHESI 82205 [place] [facility] A PERQ 3 ANESTHESI [place] IMAGE A GROUP GUIDED PS SPINE THERAPEUT IC SBSQ 40253 [facility] 3 EMERGENCY RAE IGN CARE/DAY SERVICES 25 MINUTES INITIAL 04347 [facility] 3 N CARE/DAY CARDIOLOG 30 Y MINUTES MRI 00761 [facility] [place] MAT SPINAL 3 RADIOLOGY CANAL THORACIC W/O CONTRAST MATRL MRI 97286 [facility] [place] MAT SPINAL 3 RADIOLOGY CANAL LUMBAR W/O CONTRAST MATERIAL RADIOLOGI 06107 [facility] [place] MAT C 3 RADIOLOGY EXAMINATI ON CHEST SINGLE VIEW FRONTAL MRI 43303 [place] [facility] SPINAL 3 MEDICAL LATRELL CANAL IMAGING LUMBAR ASS W/O CONTRAST MATERIAL INITIAL 63269 [facility] 3 EMERGENCY JANET CARE/DAY SERVICES 70 MINUTES 3D 91659 [place] [facility] RENDERING 3 MEDICAL LATRELL IMAGING W/INTERP& ASS POSTPROC DIFF WORK STATION CT LUMBAR 69124 OMARI SALCIDO SPINE 3 [facility] W/O INC INC CONTRAST MATERIAL RADIOLOGI 97383 OMARI SALCIDO C 3 [facility] EXAMINATI INC INC ON PELVIS 1/2 VIEWS 3D 53266 OMARI SALCIDO RENDERING 3 [facility] W/INTERP INC INC & POSTPROCE SS SUPERVISI ON THERAPEUT 65419 OMARI SALCIDO IC 3 [facility] PROPHYLAC INC INC TIC/DX INJECTION SUBQ/IM 3D 64221 OMARI SALCIDO RENDERING 3 [facility] INC INC W/INTERP& POSTPROC DIFF WORK STATION GROUND A0425 [facility] AMBULANCE PER SERVICE SERVICE STATUTE MILE AMBULANCE A0429 [facility] SERVICE 3 AMBULANCE AMBULANCE BLS SERVICE SERVICE EMERGENCY TRANSPORT RADIOLOGI 90412 OMARI SALCIDO C 3 [facility] EXAMINATI INC [place] [address] OMARI SALCIDO HEAD/BRAI 3 [facility] N W/[place] [address] OMARI SALCIDO CERVICAL 3 [facility] SPINE W/O INC INC CONTRAST MATERIAL RADEX 07555 OMARI JESSICA ORTEGA SPINE 3 [facility] LUMBOSACR INC AL MINIMUM 4 VIEWS INJECTION J1040 TYESHA ARAMBULA 3 DON DON METHYLPRE DNISOLONE ACETATE 80 MG STANDARD K0001 MICHELLE MAXWELL 3 HOME HOME R MEDICAL MEDICAL EQUIPME EQUIPME COMPREHEN 36636 OMARI SALCIDO SIVE 3 [facility] METABOLIC INC INC PANEL URNLS DIP 93704 OMARI SALCIDO 3 [facility] STICK/TAB INC INC LET REAGENT AUTO MICROSCOP Y BLOOD 24264 OMARI SALCIDO COUNT 3 [facility] COMPLETE INC INC AUTO&AUTO DIFRNTL WBC COLLECTIO 48099 OMARI Lee VENOUS 3 [facility] BLOOD INC INC VENIPUNCT URE RADIOLOGI 06733 TYESHA [place]cal[place] 3 DON DON EXAMINATI ON KNEE 1/2 VIEWS STANDARD K0001 MICHELLE MAXWELL 3 HOME HOME R MEDICAL MEDICAL EQUIPME EQUIPME CULTURE 30831 OMARI SALCIDO BCT 3 [facility] ISOL&PRSM INC INC PTV ID ISOLATE EA URINE CULTURE 36906 OMARI SALCIDO BACTERIAL 3 [facility] INC INC QUANTTATI VE COLONY COUNT URINE URNLS DIP 21313 TYESHA ARAMBULA 3 DON DON STICK/TAB LET RGNT NON-AUTO W/O MICRSCP SUSCEPTIB 06939 OMARI SALCIDO LTY STDY 3 [facility] ANTIMICRB INC INC IAL MICRO/AGA R DILUTJ OPHTH 31700 [facility] MEDICAL 3 MEDICAL JR ORTEGA XM&EVAL SERV COMPRHNSV FOUNDATIO ESTAB PT 1/> CUL BACT 99646 OMARI SALCIOD XCPT 3 [facility] URINE INC INC BLOOD/[place] [address] OMARI SALCIDO INFUSION 3 [facility] THERAPY/P INC INC ROPHYLAXI S /DX 1ST TO 1 [place] [address] OMARI SALCIDO INFUSION 3 [facility] THERAPY/P INC INC ROPHYLAXI S /DX 1ST TO 1 [place] [address] OMARI SALCIDO INFUSION 3 [facility] THERAPY/P INC INC ROPHYLAXI S /DX 1ST TO 1 HR DRUG 81387 OMARI SALCIDO SCREEN 3 [facility] QUANTITAT INC INC RIGO GENTAMICI N DRUG 38435 OMARI SALCIDO SCREEN 3 [facility] QUANTITAT INC INC RIGO GENTAMICI N COLLECTIO 55360 OMARI SALCIDO N VENOUS 3 [facility] BLOOD INC INC VENIPUNCT URE COLLECTIO 48202 OMARI SALCIDO N VENOUS 3 [facility] [place] [address] OMARI SALCIDO INFUSION 3 [facility] THERAPY/P INC INC ROPHYLAXI S /DX 1ST TO 1 HR DRUG 23475 OMARI SALCIDO SCREEN 3 [facility] QUANTITAT INC INC RIGO GENTAMICI N DRUG 13560 OMARI SALCIDO SCREEN 3 [facility] QUANTITAT INC INC RIGO GENTAMICI N COLLECTIO 05722 OMARI SALCIDO N VENOUS 3 [facility] [place] [address] OMARI SALCIDO UREA 3 [facility] NITROGEN INC INC QUANTITAT RIGO CREATININ 65441 OMARI SALCIDO E BLOOD 3 [facility] [place] [address] OMARI SALCIDO INFUSION 3 [facility] THERAPY/P INC INC ROPHYLAXI S /DX 1ST TO 1 HR BASIC 28374 OMARI SALCIDO METABOLIC 3 [facility] PANEL INC INC CALCIUM TOTAL CUL BACT 63940 OMARI SALCIDO AEROBIC 3 [facility] ADDL INC INC METHS DEFINITIV E EA ISOL CUL BACT 42893 OMARI SALCIDO XCPT 3 [facility] URINE INC INC BLOOD/STO OL AEROBIC ISOL INJECTION J0690 ARAMBULAZak ARAMBULA 3 DON DON CEFAZOLIN SODIUM 500 MG SUSCEPTIB 32795 OMARI SALCIDO LTY STDY 3 [facility] ANTIMICRB INC INC IAL MICRO/AGA R [...] SONE ACETATE & PHOSPHATE 3 MG REMOVAL 63932 TYESHA ARAMBULA IMPACTED 2 DON DON CERUMEN INSTRUMEN TATION UNILAT ECG 09086 TYESHA ARAMBULA ROUTINE 2 DON DON ECG W/LEAST 12 LDS W/I&R ECG 31376 TYESHA ARAMBULA ROUTINE 2 DON DON ECG W/LEAST 12 LDS W/I&R RADEX ABD 74994 TYESHA ARAMBULA COMPL 2 DON DON AQT ABD W/S/E/D VIEWS 1 VIEW URNLS DIP 35806 TYESHA ARAMBULA 2 DON DON STICK/TAB LET RGNT NON-AUTO W/O MICRSCP INJECTION J1040 TYESHA ARAMBULA 2 DON DON METHYLPRE DNISOLONE ACETATE 80 MG ECG 06905 EMILY BOOTH ROUTINE 2 EMERGENCY SAJAN ECG SERVICES W/LEAST 12 LDS I&R ONLY BLOOD 55274 OMARI SALCIDO COUNT 2 [facility] COMPLETE INC INC AUTO&AUTO DIFRNTL WBC NATRIURET 45756 OMARI OMARI IC 2 [facility] [place] [address] OMARI SALCIDO TROPONIN 2 [facility] QUANTITAT INC INC RIGO ECG 59812 OMARI SALCIDO ROUTINE 2 [facility] ECG INC INC W/LEAST 12 LDS TRCG ONLY W/O I&R THER 02174 OMARI SALCIDO PROPH/DX 2 [facility] NJX IV INC INC PUSH SINGLE/1S T SBST/DRUG CREATINE 54082 OMARI SALCIDO KINASE 2 [facility] TOTAL INC INC COMPREHEN 32245 OMARI SALCIDO SIVE 2 [facility] METABOLIC INC INC PANEL URNLS DIP 37104 OMARI SALCIDO 2 [facility] STICK/TAB INC INC LET REAGENT AUTO MICROSCOP Y RADIOLOGI 13596 OMARI SALCIDO C 2 [facility] EXAMINATI INC INC ON CHEST SINGLE VIEW FRONTAL INJECTION J2405 OMARI SALCIDO 2 [facility] ONDANSETR INC INC ON HCL PER 1 MG CREATINE 47076 OMARI SALCIDO KINASE MB 2 [facility] FRACTION INC INC ONLY COMPREHEN 97250 OMARI SALCIDO SIVE 2 [facility] METABOLIC INC INC PANEL COLLECTIO 94864 OMARI SALCIDO N VENOUS 2 [facility] BLOOD INC INC VENIPUNCT URE INJECTION J3420 TYESHA ARAMBULA VIT B-12 2 DON DON CYANOCOBA JEWEL TO 1000 MCG INJECTION J1040 TYESHA ARZATES 2 DON DON METHYLPRE DNISOLONE ACETATE 80 MG TYMPANOME 84358 TYESHA [place]AMBUL[place] TRY 2 [place] [address] OMARI SALCIDO THYROID 2 [facility] STIMULATI INC INC NG HORMONE TSH COMPREHEN 17863 OMARI SALCIDO SIVE 2 [facility] METABOLIC INC INC PANEL LIPID 54990 OMARI SALCIDO PANEL 2 [facility] INC INC BLOOD 13829 OMARI SALCIDO COUNT 2 [facility] COMPLETE INC INC AUTO&AUTO DIFRNTL WBC COLLECTIO 35187 OMARI SALCIDO N VENOUS 2 [facility] BLOOD INC INC VENIPUNCT URE OPHTH 80114 [facility] MEDICAL 2 MEDICAL ORTEGA XM&EVAL SERV COMPRHNSV FOUNDATIO ESTAB PT 1/> COMPUTERI 70883 [place] [facility] ZED 2 MEDICAL ORTE[place] OPHTHAL[place] [address] OMARI OMARI TRANSVAGI 2 [facility] NAL INC INC US PELVIC 20062 EUGENIOAndrea ZACH 2 MEDICAL LATRELL NONOBSTET IMAGING ZOEY ASS REAL-TIME IMAGE COMPLETE URNLS DIP 26946 TYESHA ARAMBULA 2 DON DON STICK/TAB LET RGNT NON-AUTO W/O MICRSCP INJECTION J3420 TYESHA ARAMBULA VIT B-12 2 DON DON CYANOCOBA JEWEL TO 1000 MCG INJECTION J1040 TYESHA ARAMBULA 2 DON DON METHYLPRE DNISOLONE ACETATE 80 MG URNLS DIP 55161 TYESHA ARAMBULA 2 DON DON STICK/TAB LET RGNT NON-AUTO W/O MICRSCP INJECTION J3420 TYESHA ARAMBULA VIT B-12 1 DON DON CYANOCOBA JEWEL TO 1000 MCG ADMINISTR G0008 TYESHA ARAMBULA ATION OF 1 DON DON INFLUENZA VIRUS VACCINE INFLUENZA Q2037 TYESHA ARAMBULA VACC 1 DON DON SPLIT VIRUS 3 YRS & > IM FLUVIRIN URNLS DIP 54035 TYESHA ARAMBULA 1 DON DON STICK/TAB LET RGNT NON-AUTO W/O MICRSCP INJECTION J3420 TYESHA ARAMBULA VIT B-12 1 DON DON CYANOCOBA JEWEL TO 1000 MCG INJECTION J1040 TYESHA ARAMBULA 1 DON DON METHYLPRE DNISOLONE ACETATE 80 MG URNLS DIP 36412 TYESHA ARZATES 1 DON DON STICK/TAB LET RGNT NON-AUTO W/O MICRSCP URNLS DIP 32327 TYESHA ARAMBULA 1 DON DON STICK/TAB LET RGNT NON-AUTO W/O MICRSCP CULTURE 03075 OMARI OMARI BACTERIAL 1 [facility] INC INC QUANTTATI VE COLONY COUNT URINE URNLS DIP 19168 TYESHA ARZATES 1 DON DON STICK/TAB LET RGNT NON-AUTO W/O MICRSCP URNLS DIP 20025 [place] [facility] STICK/TAB CLINIC LET RGNT PSC NON-AUTO W/O MICRSCP URNLS DIP 89681 TYESHA ARAMBULA 1 DON DON STICK/TAB LET RGNT NON-AUTO W/O MICRSCP INJ J0702 TYESHA ARAMBULA BETAMETHA 1 DON DON SONE ACETATE & PHOSPHATE 3 MG INJECTION J3420 TYESHA ARAMBULA VIT B-12 1 DON DON CYANOCOBA [place]EWEL [place] [address] [place] [address] [place] [facility] ABDOMEN & 1 MEDICAL LATRELL PELVIS IMAGING W/CONTRAS ASS T MATERIAL CT THORAX 99410 [place] W/O 1 MEDICAL LATRELL CONTRAST IMAGING MATERIAL ASS 3D 43965 [place] RENDERING 1 MEDICAL LATRELL IMAGING W/INTERP& ASS POSTPROC DIFF WORK STATION CT THORAX 66603 OMARI SALCIDO 1 [facility] W/[place] [address] [facility] BLOOD/URI 1 CL[facility]IN[facility] C ACID LABORATO LABORATO COMPREHEN 35388 [facility] SIVE 1 [facility]INIC CLINIC METABOLIC LABORATO LABORATO PANEL LACTATE 13515 [facility] DEHYDROGE 1 CLINIC CLINIC NASE LDH LABORATO LABORATO BLOOD 76679 [facility] COUNT 1 CLINIC CLINIC COMPLETE LABORATO LABORATO AUTO&AUTO DIFRNTL WBC COLLECTIO 99086 [facility] N VENOUS 1 CLINIC CLINIC BLOOD LABORATO LABORATO VENIPUNCT URE INJECTION J3420 TYESHA ARAMBULA VIT B-12 1 DON DON CYANOCOBA JEWEL TO 1000 MCG INJECTION J1040 TYESHA ARAMBULA 1 DON DON METHYLPRE DNISOLONE ACETATE 80 MG INJECTION J0690 TYESHA ARAMBULA 1 DON DON CEFAZOLIN SODIUM 500 MG URNLS DIP 68374 OMARI JEAN-BAPTISTE JR 1 [facility] STICK/TAB [facility] LET RGNT P NON-AUTO W/O MICRSCP INJECTION J1040 TYESHA ARAMBULA 1 DON DON METHYLPRE DNISOLONE ACETATE 80 MG BLOOD 24155 OMARI SALCIDO COUNT 1 [facility] COMPLETE INC INC AUTO&AUTO DIFRNTL WBC COLLECTIO 03064 OMARI SALCIDO N VENOUS 1 [facility] BLOOD INC INC VENIPUNCT URE COMPREHEN 59481 OMARI SALCIDO SIVE 1 [facility] METABOLIC INC INC PANEL LIPID 47205 OMARI SALCIDO PANEL 1 [facility] [place] [address] OMARI SALCIDO THYROID 1 [facility] STIMULATI INC INC NG HORMONE TSH INJECTION J1040 TYESHA ARAMBULA 1 DON DON METHYLPRE DNISOLONE ACETATE 80 MG INJECTION J1040 TYESHA ARAMBULA 0 DON DON METHYLPRE DNISOLONE ACETATE 80 MG AMBULANCE A0429 [facility] SERVICE 0 AMBULANCE AMBULANCE BLS SERVICE SERVICE EMERGENCY TRANSPORT SIMPLE 70398 OMARI SALCIDO RPR 0 [facility] SCALP/NEC INC INC K/AX/KIRSTIE T/TRUNK 7.6-12.5C M GROUND A0425 [facility] MILEAGE 0 AMBULANCE AMBULANCE [place] [address] OMARI SALCIDO CLOSTRIDI 0 [facility] UM INC INC DIFFICILE TOXIN URNLS DIP 82386 TYESHA ARAMBULA 0 DON DON STICK/TAB LET RGNT NON-AUTO W/O MICRSCP OPHTH 03658 [facility] MEDICAL 0 MEDICAL ORTEGA XM&EVAL SERV COMPRHNSV FOUNDATIO ESTAB PT 1/> ADMINISTR G0008 TYESHA ARAMBULA ATION OF 0 DON DON INFLUENZA VIRUS VACCINE INJECTION J1040 TYESHA ARAMBULA 0 DON DON METHYLPRE DNISOLONE ACETATE 80 MG IIV3 57596 TYESHA ARAMBULA VACCINE 0 DON DON SPLIT VIRUS 0.5 ML DOSAGE IM USE INJECTION J1040 TYESHA ARZATES 0 DON DON METHYLPRE DNISOLONE ACETATE 80 MG INJECTION J3420 TYESHA ARAMBULA VIT B-12 0 DON DON CYANOCOBA JEWEL TO 1000 MCG URNLS DIP 04544 ARAMBULA ARAMBULA 0 DON DON STICK/TAB LET RGNT NON-AUTO W/O MICRSCP URNLS DIP 40318 ARAMBULA ARAMBULA 0 DON DON STICK/TAB LET RGNT NON-AUTO W/O MICRSCP URNLS DIP 41639 TYESHA ARAMBULA, 0 DON R DON R STICK/TAB LET RGNT NON-AUTO W/O MICRSCP INJECTION J1040 TYESHA ARAMBULA, 0 DON R DON R METHYLPRE DNISOLONE ACETATE 80 MG THERAPEUT 68991 OMARI SALCIDO IC 0 [facility] PROPHYLAC INC INC TIC/DX INJECTION SUBQ/IM INJECTION J1040 TYESHA ARAMBULA, 0 DON R DON R METHYLPRE DNISOLONE ACETATE 80 MG URNLS DIP 82398 TYESHA ARAMBULA, 0 DON R DON R STICK/TAB LET RGNT NON-AUTO W/O MICRSCP COMPREHEN 97543 [facility] SIVE 0 [facility]INIC CLINIC METABOLIC [place] [address] [facility] BLOOD/URI 0 CLINIC CLINIC C ACID LABORATOR LABORATOR Y Y LACTATE 16209 [facility] DEHYDROGE 0 CLINIC CLINIC NASE LDH LABORATOR LABORATOR Y Y BLOOD 74514 [facility] COUNT 0 CLINIC CLINIC COMPLETE LABORATOR LABORATOR AUTO&AUTO Y Y DIFRNTL WBC COLLECTIO 84134 [facility] N VENOUS 0 CLINIC CLINIC BLOOD LABORATOR LABORATOR VENIPUNCT Y Y URE INJECTION J3420 TYESHA ARAMBULA, VIT B-12 0 DON R DON R CYANOCOBA JEWEL TO 1000 MCG RADIOLOGI 42838 [facility] ORTIZ EXAM 0 MEDICAL DEAN CHEST 2 IMAGING VIEWS ASSOCIATE FRONTAL&L S ATERAL THERAPEUT 76132 OMARI SALCIDO IC 0 [facility] PROPHYLAC INC INC TIC/DX INJECTION SUBQ/IM INJECTION J1040 TYESHA ARAMBULA, 0 DON R DON R METHYLPRE DNISOLONE ACETATE 80 MG 3D 33275 [facility] S[facility] RENDERING 0 MEDICAL DEAN W/INTERP IMAGING & ASSOCIATE POSTPROCE S SS SUPERVISI ON COLLECTIO 68312 OMARI SALCIDO N VENOUS 0 [facility] BLOOD INC INC VENIPUNCT URE CREATININ 38478 OMARI SALCIDO E BLOOD 0 [place] [address] [facility] SR[facility] HEAD/BRAI 0 MEDICAL DEAN N W/O & IMAGING W/[place] [address] OMARI SALCIDO UREA 0 [facility] NITROGEN INC INC QUANTITAT RIGO RADEX HIP 39125 OMARI SALCIDO 0 [facility] UNILATERA INC INC L COMPLETE MINIMUM 2 VIEWS RADIOLOGI 05523 OMARI SALCIDO C 0 [facility] EXAMINATI INC INC ON PELVIS 1/2 VIEWS BLOOD 92255 TYESHA ARAMBULA, OCCULT 0 DON R DON R PEROXIDAS E ACTV QUAL FECES 1 DETER URNLS DIP 85493 TYESHA ARAMBULA, 0 DON R DON R STICK/TAB LET RGNT NON-AUTO W/O MICRSCP INJ J0702 TYESHA ARAMBULA BETAMETHA 0 DON R DON R SONE ACETATE & PHOSPH[place] 3 [place] [address] OMARI SALCIDO UREA 9 [facility] NITROGEN INC INC QUANTITAT RIGO 3D 32852 [place], RENDERING 9 MEDICAL DEAN IMAGING W/INTERP& ASSOCIATE POSTPROC S DIFF WORK STATION CT THORAX 70231 [facility] HIRSCHZACH 9 MEDICAL DEAN W/CONTRAS IMAGING T ASSOCIATE MATERIAL S CREATININ 86603 OMARI SALCIDO E BLOOD 9 [facility]OS[facility] INC INC COLLECTIO 31897 OMARI SALCIDO N VENOUS 9 [facility] BLOOD INC INC VENIPUNCT URE SBSQ 77484 TYESHA ARAMBULA, NURSING 9 DON R DON R FACILITY CARE/DAY E/M STABLE 10 MIN HOSPITAL 7[address] ARAMBULACARITOS, DISCHARGE 9 DON R DON R DAY MANAGEMEN T 30 MIN/< SBSQ 93637 [place] [address] DON R DON R CARE/DAY 25 MINUTES SBSQ 75722 [place] [address] DON R DON R CARE/DAY 25 MINUTES SBSQ 78667 [place] [address] DON R DON R CARE/DAY 25 MINUTES RADIOLOGI 40323 [facility] Fredrick SERRANO 9 MEDICAL DEAN EXAMINATI IMAGING ON CHEST ASSOCIATE SINGLE S VIEW FRONTAL SBSQ 29262 [place] [address] DON R DON R CARE/DAY 25 MINUTES SBSQ 05580 [place] [address] DON R DON R CARE/DAY 25 MINUTES ECG 67343 VAZQUEZ PHILLIPS 9 [facility] ECG HOSPITAL W/LEAST PROF SERV 12 LDS I&R ONLY HIP 0074 OMARI SALCIDO BEARING 9 [facility] HOSP SURFACE INC INC METAL-ON- POLYETHYL AYUSH PARTIAL 8152 OMARI SALCIDO HIP 9 [facility] HOSP REPLACEME INC INC NT DECALCIFI 20080 PATHOLOGY PATHOLOGY CATION 9 & & PROCEDURE [place] [address] PATHOLOGY PATHOLOGY SURG 9 & & PATHOLOGY CYTOLOGY CYTOLOGY LAB LAB GROSS&SAJAN ROSCOPIC EXAM SBSQ 99431 ARAMBULA, ARAMBULA, HOSPITAL 9 DON R DON R CARE/DAY 25 MINUTES ANESTHESI 31444 [facility], OPEN 9 ANESTH JEN Telma [facility] RADEX HIP 95925 [place], MEDICAL DEAN UNILATERA IMAGING L 1 VIEW ASSOCIATE S AMB A0427 [facility] SERVICE 9 AMBULANCE AMBULANCE ALS SERVICE SERVICE EMERGENCY TRANSPORT LEVEL 1 GROUND A0425 [facility] MILEAGE 9 AMBULANCE AMBULANCE PER SERVICE SERVICE STATUTE MILE INITIAL 15393 [facility] 9 DON R DON R CARE/DAY 50 MINUTES RADIOLOGI 97757 [place] 9 MEDICAL DEAN EXAMINATI IMAGING ON CHEST ASSOCIATE SINGLE S VIEW FRONTAL RADEX HIP [address]3750 [place] [address] MED[facility] DEAN UNILATERA IMAGING L ASSOCIATE COMPLETE S MINIMUM 2 VIEWS ECG 52100 OMARI OHARA ROUTINE 9 [facility] JEN F W/LEAST PROF SERV 12 LDS I&R ONLY RADIOLOGI 74441 [place] 9 MEDICAL DEAN EXAMINATI IMAGING ON PELVIS ASSOCIATE 1/2 S VIEWS OPHTH 55487 [facility] MEDICAL MARTINE SINGLETON&JEWELS SERV INTERMEDI FOUNDATIO ATE ESTAB PT PPSV23 20518 TYESHA ARAMBULA, ERNESTO 2 9 DON R DON R YRS OR OLDER FOR SUBQ/IM USE IIV3 40007 TYESHA ARAMBULA VACCINE 9 DON R DON R SPLIT VIRUS 0.5 ML DOSAGE IM USE ADMINISTR G0009 TYESHA ARAMBULA, ATION OF 9 DON R DON R PNEUMOCOC CECILIA VACCINE ADMINISTR G0008 TYESHA ARAMBULA, ATION OF DON R DON R INFLUENZA VIRUS VACCINE URNLS DIP 44403 TYESHA ARAMBULA 9 DON R DON R STICK/TAB LET RGNT NON-AUTO W/O MICRSCP URNLS DIP 67849 TYESHA ARAMBULA 9 DON R DON R STICK/TAB LET RGNT NON-AUTO W/O MICRSCP INJECTION [id number] TYESHA ARAMBULA VIT B-12 9 DON R DON R CYANOCOBA JEWEL TO 1000 MCG RADEX 79417 OMARI SALCIDO ANKLE 9 [facility] COMPLETE INC INC MINIMUM 3 VIEWS RADEX 80679 OMARI SALCIDO WRIST 9 [facility] COMPLETE [place] [address] [place] [address] [place], ABDOMEN 9 MEDICAL [facility]CO P W/CONTRAS IMAGING T ASSOCIATE MATERIAL S CT THORAX 05608 [place], 9 [facility]ICAL [facility] P W/CONTRAS IMAGING T ASSOCIATE MATERIAL S 3D 90717 [place], RENDERING 9 MEDICAL [facility] P IMAGING W/INTERP& ASSOCIATE POSTPROC S DIFF WORK STATION CT PELVIS 74019 [facility] TRISTAN, 9 MEDICAL [facility] P W/CONTRAS IMAGING T ASSOCIATE MATERIAL S COMPREHEN 04883 [facility] SIVE 9 [facility] METABOLIC LABORATOR LABORATOR PANEL Y Y COLLECTIO 32422 [facility] N VENOUS 9 [facility]INIC CLINIC BLOOD LABORATOR LABORATOR VENIPUNCT Y Y URE BLOOD 44282 [facility] COUNT 9 [facility] COMPLETE LABORATOR LABORATOR AUTO&AUTO Y Y DIFRNTL WBC INJECTION J1040 TYESHA ARAMBULA, 9 DON R DON R METHYLPRE DNISOLONE ACETATE 80 MG INJECTION J3420 TYESHA ARAMBULA VIT B-12 9 DON R DON R CYANOCOBA JEWEL TO 1000 MCG COLLECTIO 51662 [facility] 9 [facility] BLOOD LABORATOR LABORATOR VENIPUNCT Y Y URE BLOOD 02581 [facility] COUNT 9 [facility] COMPLETE LABORATOR LABORATOR AUTO&[place] [address] [facility] GAMMAGLOB 9 [facility] ULIN IGA LABORATOR LABORATOR IGD IGG Y Y IGM EACH LACTATE 57149 [facility] [facility] DEHYDROGE 9 [facility] NASE LDH LABORATOR LABORATOR Y Y COMPREHEN 59519 [facility] SIVE 9 [facility] METABOLIC LABOR[place] [address] [facility] BLOOD/URI 9 CLINIC CLINIC C ACID LABORATOR LABORATOR Y Y INJECTION J0152 [facility] SALCIDO 9 [facility] ADENOSINE INC INC DIAGNOSTI C USE 30 MG TECHNETIU A9502 OMARI SALCIDO M TC-99M 9 [facility] TETROFOSM INC INC IN DX PER STUDY DOSE MYOCRD 32943 O[facility]I SALCIDO PRFUJ IMG 9 [facility] TOMOG INC INC SPECT CLIN TECH STD MYOCRD 56001 O[facility]I SALCIDO PRFUJ STD 9 [facility] WALL INC INC MOTION QUAL/NAYE STD MYOCRD 89013 O[facility]I SALCIDO PRFUJ STD 9 [facility] EJEC FXJ INC INC CV STRS 93125 OMARI ROGER, TST 9 [facility] RX CONT PROF SERV ECG I&R ONLY CV STRS 94236 OMARI ROGER, TST 9 [facility] RX CONT PROF SERV ECG W/O I&R CV STRS 13837 O[facility]I SALCIDO TST 9 [facility] XERS&/OR INC INC RX CONT ECG TRCG ONLY ECG 86320 TYESHA ARAMBULA, ROUTINE 9 DON R DON R ECG W/LEAST 12 LDS W/I&R RADIOLOGI 87251 TYESHA ARAMBULA C 9 DON R DON R EXAMINATI ON CHEST SINGLE VIEW FRONTAL RADEX HIP 82245 TYESHA ARAMBULA 9 DON R DON R UNILATERA L COMPLETE MINIMUM 2 VIEWS RADIOLOGI 41499 TYESHA ARAMBULA C EXAM 9 DON R DON R PELVIS COMPL MINIMUM 3 VIEWS INJECTION J1040 TYESHA ARAMBULA 9 DON R DON R METHYLPRE DNISOLONE ACETATE 80 MG INJECTION J1040 TYESHA ARAMBULA 8 DON R DON R METHYLPRE DNISOLONE ACETATE 80 MG LACTATE 14844 [facility] DEHYDROGE 8 [facility] NASE LDH LABORATOR LABORATOR Y Y BLOOD 23983 [place] AKIKO COUNT 8 [facility]IN[facility] COMPLETE LABORATOR LABORATOR AUTO&AUTO Y Y DIFRNTL WBC COLLECTIO 55515 [place] [facility] BLOOD LABORATOR LABORATOR VENIPUNCT Y Y URE COMPREHEN 02234 [place] [facility] METABOLIC [place] [address] [facility] BLOOD/URI 8 [facility]IC [facility]IN[facility] C ACID LABORATOR LABORATOR Y Y INJECTION J1040 TYESHA ARAMBULA, Roberta DON R DON R METHYLPRE DNISOLONE ACETATE 80 MG OPH 03451 OR GARTH, [address]&EVAL SERV COMPRHNSV FOUNDATIO ESTAB PT 1/> URNLS DIP 69222 TYESHA ARAMBULA 8 DON R DON R STICK/TAB LET RGNT NON-AUTO W/O MICRSCP IIV3 08076 TYESHA ARAMBULA, VACCINE 8 DON R DON R SPLIT VIRUS 0.5 ML DOSAGE IM USE ADMINISTR G0008 TYESHA ARAMBULA, ATION OF 8 DON R DON R INFLUENZA VIRUS VACCINE THER 02191 [facility] PROPH/DX [address] [place] [address] NJX IV PUSH 1ST SBST/DRUG POTASSIUM [address] PLASMA/WH OLE BLOOD CHLORIDE 25913 [facility] BLD [address] [place] [address] [place] [address] [facility] LIPASE [address] [place] [address] ECG 68858 [facility] ROUTINE [address] [place] [address] ECG W/LEAST 12 LDS TRCG ONLY W/O I&R RADIOLOGI 41690 [facility] C EXAM [address] [place] [address] CHEST 2 VIEWS FRONTAL&L ATERAL BLOOD 53839 [facility] COUNT [address] [place] [address] COMPLETE AUTOMATED SODIUM [address] [place] [address] [facility] TROPONIN [address] [place] [address] QUANTITAT RIGO NATRIURET 24098 [facility] IC [address] [place] [address] PEPTIDE BLOOD 83050 [facility] GASES ANY [address] [place] [address] COMBINATI ON PH PCO2 PO2 CO2 HCO3 GLUCOSE 48996 [facility] QUANTITAT [address] [place] [address] RIGO BLOOD XCPT REAGENT STRIP ECG 80569 EMERGENCY ACKERMAN, ROUTINE 8 PHYS CARL W ECG [place] W/LEAST 12 LDS I&R ONLY HEPATIC 69407 [facility] FUNCTION [address] [place] [address] PANEL URNLS DIP [address] STICK/TAB LET REAGENT AUTO MICROSCOP Y IV NFUS 48615 [facility] HYDRATION [address] [place] [address] [place] [address] [facility] UREA [address] [place] [address] NITROGEN QUANTITAT RIGO INJECTION J24[address] ONDANSETR ON HCL PER 1 MG RADEX 08057 OMARI SALCIDO SPINE 8 [facility] HOSP LUMBOSACR INC INC AL MINIMUM 4 VIEWS RADIOLOGI 20133 TYESHA ARAMBULA C EXAM 8 DON R [...] Type Date CRITICAL . ACCESS 7 7 [facility] OMARI - OUMOU 7 7 [facility] O[facility] - [facility] 7 7 [facility] - 7 7 [facility] OUTPATIEN INC T [facility] - 7 7 [facility] OUTPATIEN INC T OFFICE 40293 [facility] RIKI OUTPATIEN 7 7 PHYSICIAN T VISIT S GROUP 25 MINUTES [facility]OSPITAL [facility] - 7 7 [facility] OUTPATIEN INC T OFFICE 34014 [facility] RIKI OUTPATIEN 7 7 PHYSICIAN T VISIT S GROUP 25 MINUTES HOSPITAL [facility] - 7 7 [facility] OUTPATIEN INC [facility] OMARI - 7 7 [facility] OUTPATIEN INC T OFFICE 23607 [facility] RIKI OUTPATIEN 7 7 PHYSICIAN T VISIT S GROUP 40 MINUTES OFFICE 39196 MERRY HENRY OUTPATIEN 7 7 MEDICAL T VISIT SERV 25 FOUNDATIO MINUTES [facility] OMARI - 7 7 [facility] OUTPATIEN INC [facility] OMARI - 7 7 [facility] OUTPATIEN INC T OFFICE 86007 [facility] RIKI OUTPATIEN 7 7 PHYSICIAN T VISIT S GROUP 40 MINUTES [facility] OMARI - 7 7 [facility] OUTPATIEN INC [facility] OMARI - 7 7 [facility] OUTPATIEN INC T OFFICE 83477 MERRY ELAINE OUTPATIEN 7 7 MEDICAL T NEW 60 SERV MINUTES [facility] OMARI - 7 7 [facility] OUTPATIEN INC T OFFICE 65554 [facility] RIKI OUTPATIEN 7 7 PHYSICIAN T VISIT S GROUP 15 MINUTES HOSPITAL [facility] - 7 7 [facility] OUTPATIEN INC [facility] O[facility] - 7 7 [facility] OUTPATIEN INC T OFFICE 83751 [facility] RIKI OUTPATIEN 7 7 PHYSICIAN T NEW 60 S GROUP MINUTES HOSPITAL [facility] - 7 7 [facility]PATIEN INC [facility]OSP[facility] COELLO 7 7 [facility] INC EMERGENCY 53819 CUBA MAK 7 7 [facility] H[facility]/URGE NT SEVERITY [facility] - 7 7 [facility] OUTPATIEN INC T EMERGENCY 24019 [facility] 7 7 [facility] DEPARTMEN INC T VISIT LOW/MODER SEVERITY OFFICE 07424 ISMAEL GUEVARA JR OUTPATIEN 7 7 T VISIT 15 MINUTES OFFICE 03979 [facility] OUTPATIEN 6 6 [place] T NEW 20 CLINIC MINUTES [facility] INPATIENT 6 6 [facility] IN[facility] 6 6 [facility] - 6 6 [facility]EN [facility] INPATIENT 6 6 [facility] EMERGENCY 59393 CUBA CASTILLO DEPT 6 6 PHYSICIAN SARAH VISIT S, PLLC HIGH SEVERITY& THREAT [facility] OMARI - 6 6 [facility] INPATIENT INC EMERGENCY 12330 CUBA JAQUEZ 6 6 [facility] T VISIT MODERATE SEVERITY OFFICE 38523 [facility] DYLAN SIMMONS OUTPATIEN 6 6 PHYSICIAN MANJINDER T VISIT S GROUP 10 MINUTES OFFICE 60637 ISMAEL GUEVARA JR OUTPATIEN 6 6 YOJANA DWI T VISIT 15 MINUTES HOSPITAL [facility] - 6 6 [facility] OUTPATIEN INC T OFFICE 10491 [facility] DYLAN SIMMONS OUTPATIEN 6 6 PHYSICIAN MANJINDER T VISIT S GROUP 15 MINUTES OFFICE 24578 ISMAEL GUEVARA JR OUTPATIEN 6 6 YOJANA DWI T VISIT 15 MINUTES HOSPITAL [facility] - [address] [facility] OUTPATIEN [facility] T OFFICE 87181 ISMAEL GUEVARA JR OUTPATIEN 6 6 YOJANA DWI T VISIT 15 MINUTES HOSPITAL [facility] - [address] [facility] OUTPATIEN [facility] T OFFICE 14691 ISMAEL GUEVARA OUTPATIEN 6 6 YOJANA YOJANA T VISIT 15 MINUTES OFFICE 00053 ISMAEL GUEVARA JR OUTPATIEN 5 5 YOJANA DWI T VISIT 15 MINUTES HOSPITAL [facility] - [address] [facility] 43020 ISMAEL GUEVARA OUTPATIEN 5 5 YOJANA DWI T VISIT 15 MINUTES [facility] OMARI - [address] [facility] 46969 ISMAEL GUEVARA OUTPATIEN 5 5 YOJANA DWI T VISIT 15 MINUTES HOSPITAL [facility] - OTHER 5 5 [facility] OFFICE 50876 [facility] DYLAN SIMMONS OUTPATIEN 5 5 PHYSICIAN MANJINDER T VISIT S GROUP 15 MINUTES HOSPITAL [facility] - OTHER 5 5 [facility] OMARI - [address] [facility] 85106 [facility] DYLAN SIMMONS OUTPATIEN 5 5 PHYSICIAN MANJINDER T VISIT S GROUP 25 MINUTES HOSPITAL O[facility] - [address] [facility] OUTPATIEN [facility] OMARI - [address] [facility] OTHER 5 5 [facility] [address] [facility] OMARI - OTHER 5 5 [facility] OFFICE 30962 ISMAEL GUEVARA JR OUTPATIEN 5 5 YOJANA DWI T VISIT 15 MINUTES OFFICE 42615 ISMAEL GUEVARA JR OUTPATIEN 5 5 YOJANA DWI T VISIT 15 MINUTES EMERGENCY 80803 [facility]I 5 5 [facility] DEPARTMEN INC T VISIT HIGH/URGE NT SEVERITY [facility]OSPITAL [facility] - 5 5 [facility] OUTPATIEN INC T HOSPITAL [facility] - OTHER 5 5 [facility] INC OFFICE 21304 ISMAEL GUEVARA JR OUTPATIEN 5 5 YOJANA DWI T VISIT 15 MINUTES OFFICE 14355 ISMAEL GUEVARA JR OUTPATIEN 4 4 YOJANA DWI T VISIT 15 MINUTES OFFICE 72309 ISMAEL GUEVARA JR OUTPATIEN 4 4 YOJANA DWI T VISIT 15 MINUTES HOSPITAL [facility] - 4 4 [facility]EN [facility] T OFFICE 46723 [facility] ANJUR-SUKHDEV OUTPATIEN 4 4 [facility] T NEW 30 MEDICAL MINUTES G OFFICE 01608 ISMAEL GUEVARA JR OUTPATIEN 4 4 YOJANA DWI T VISIT 15 MINUTES HOSPITAL O[facility] - [address] [facility] OUTPATIEN [facility] T OFFICE 52034 ISMAEL GUEVARA JR OUTPATIEN 4 4 YOJANA DWI T VISIT 15 MINUTES HOSPITAL [facility] - 4 4 [facility] OUTPATIEN INC T EMERGENCY 63444 [facility] H[facility]URGE NT SEVERITY EMERGENCY 79135 [facility] 4 4 [facility] MOH VISIT EMERGENCY HIGH PHYS SEVERITY& THREAT FUNCJ OFFICE 25160 ISMAEL GUEVARA JR OUTPATIEN 4 4 YOJANA DWI T VISIT [address] ACCESS 4 4 [facility] EM[facility]ENC[facility] 75230 [facility] 4 4 [facility] T VISIT MODERATE SEVERITY OFFICE 85675 ISMAEL GUEVARA JR OUTPATIEN 4 4 YOJANA DWI T VISIT 10 MINUTES OFFICE 48280 ISMAEL GUEVARA JR OUTPATIEN 4 4 YOJANA DWI T VISIT 15 MINUTES [facility]OSPITAL [facility] - OTHER 4 4 [facility] INC OFFICE 38961 ISMAEL GUEVARA JR OUTPATIEN 4 4 YOJANA DWI T VISIT 15 MINUTES [facility]OSPITAL [facility] - 4 4 [facility] OUTPATIEN INC T OFFICE 71058 ISMAEL GUEVARA JR OUTPATIEN 4 4 YOJANA DWI T VISIT 15 MINUTES [facility]OSPITAL [facility] - OTHER 4 4 [facility] INC OFFICE 58738 ISMAEL GUEVARA JR OUTPATIEN 4 4 YOJANA DWI T VISIT [address] [facility] DEPT 4 4 [place] VISIT EMERGENCY HIGH PHYS SEVERITY& THREAT FUNCJ OFFICE 55396 ISMAEL GUEVARA JR OUTKARINEN 4 4 YOJANA DWI T VISIT 15 MINUTES HOSPITAL [facility] - 4 4 [facility] OUTPATIEN INC T OFFICE 20491 ISMAEL GUEVARA JR OUTPATIEN 4 4 YOJANA DWI T VISIT 25 MINUTES EMERGENCY 06414 [facility] 4 4 [facility] DEPARTMEN EMERGENCY T VISIT PHYS HIGH/URGE NT SEVERITY [facility] - 4 4 [facility] OUTPATIEN INC T EMERGENCY 19666 [facility] 4 4 [facility] DEPARTMEN INC T VISIT MODERATE SEVERITY EMERGENCY 58390 [facility] 4 4 [facility] DEPARTMEN INC T VISIT LOW/MODER SEVERITY EMERGENCY 77728 [facility] 4 4 [place] DEPARTMEN EMERGENCY T VISIT PHYS MODERATE SEVERITY [facility] - 4 4 [facility]EN [facility] OTHER 4 4 [facility] OMARI - 3 3 [facility] OUTPATIEN [facility] - 3 3 [facility] T OFFICE 24897 ISMAEL GUEVARA JR OUTPATIEN 3 3 YOJANA DWI T VISIT 15 MINUTES OFFICE 59055 [facility] 3 3 [place] T VISIT ORTHOPAED 15 [facility] MINUTES OFFICE 67373 [facility] OUTPATIEN 3 3 [place] T VISIT CLINIC 15 PSC MINUTES OFFICE 79554 TYESHA ARAMBULA OUTPATIEN 3 3 DON DON T VISIT 15 MINUTES OFFICE 62955 TYESHA ARZATES OUTPATIEN 3 3 DON DON T VISIT 15 MINUTES EMERGENCY 67114 EMILY MERINO DEPT 3 3 EMERGENCY III VARUN VISIT SERVICES HIGH SEVERITY& THREAT FUN EMERGENCY 03444 [facility] 3 3 [facility] DEPARTMEN [facility] T VISIT LOW/MODER SEVERITY [facility]PITAL [facility] - 3 3 [facility] OUTPATIEN [facility] EMERGENCY 92841 [facility] 3 3 [facility] DEPARTMEN [facility] T VISIT LOW/MODER SEVERITY EMERGENCY 41076 EMILY BOOTH DEPT 3 3 EMERGENCY SAJAN VISIT SERVICES HIGH SEVERITY& THREAT [facility] - 3 3 [facility] OUTPATIEN [facility] OFFICE 30147 TYESHA ARAMBULA OUTPATIEN 3 3 DON DON T VISIT 15 MINUTES HOSPITAL [facility] - 3 3 [facility] OUTPATIEN INC T OFFICE 01589 TYESHA ARZATES OUTPATIEN 3 3 DON DON T VISIT 25 MINUTES HOSPITAL [facility] - 3 3 [facility]EN [facility] OFFICE 61702 ARAMBULA ARAMBULA OUTPATIEN 3 3 DON DON T VISIT 15 MINUTES HOSPITAL [facility] - 3 3 [facility]PATIEN [facility] H[facility] - 3 3 [facility] OUTPATIEN [facility] H[facility] - 3 3 [facility]PATIEN [facility] H[facility] - 3 3 [facility]PATIEN [facility] H[facility] - 3 3 [facility]PATIEN [facility] H[facility] - 3 3 [facility]PATIEN [facility] H[facility] - 3 3 [facility] OUTPATIEN [facility] H[facility] - 3 3 [facility] OUTPATIEN [facility] H[facility] - 3 3 [facility] OUTPATIEN [facility] OFFICE 84336 ARAMBULA ARAMBULA OUTPATIEN 3 3 DON DON T VISIT 15 MINUTES OFFICE 79017 ARAMBULA ARAMBULA OUTPATIEN 2 2 DON DON T VISIT 15 MINUTES OFFICE 95707 ARAMBULA ARAMBULA OUTPATIEN 2 2 DON DON T VISIT 25 MINUTES OFFICE 57462 ARAMBULA ARAMBULA OUTPATIEN 2 2 DON DON T VISIT 25 MINUTES OFFICE 23577 ARAMBULA ARAMBULA OUTPATIEN 2 2 DON DON T VISIT 25 MINUTES OFFICE 62241 ARAMBULA ARAMBULA OUTPATIEN 2 2 DON DON T VISIT 15 MINUTES HOSPITAL [facility] - 2 2 [facility]EN [facility] T EMERGENCY 92994 [facility] 2 2 [facility] T VISIT HIGH/URGE NT SEVERITY EMERGENCY 78455 EMILY BOOTH DEPT 2 2 EMERGENCY SAJAN VISIT SERVICES HIGH SEVERITY& THREAT FUN OFFICE 89694 JAIME GEIGER SAJAN OUTPATIEN 2 2 [place] T VISIT CLINIC 15 PSC MINUTES HOSPITAL [facility] - 2 2 [facility] OUTPATIEN INC T OFFICE 93508 ARAMBULA ARAMBULA OUTPATIEN 2 2 DON DON T VISIT 15 MINUTES OFFICE 17422 ARAMBULA ARAMBULA OUTPATIEN 2 2 DON DON T VISIT 15 MINUTES HOSPITAL [facility] - 2 2 [facility] OUTPATIEN [facility] - 2 2 [facility] OUTPATIEN [facility] OFFICE 45620 ARAMBULA ARAMBULA OUTPATIEN 2 2 DON DON T VISIT 15 MINUTES OFFICE 54576 ARAMBULA ARAMBULA OUTPATIEN 2 2 DON DON T VISIT 15 MINUTES OFFICE 60480 ARAMBULA ARAMBULA OUTPATIEN 1 1 DON DON T VISIT 15 MINUTES OFFICE 69162 ARAMBULA ARAMBULA OUTPATIEN 1 1 DON DON T VISIT 15 MINUTES OFFICE 68853 PAWSAT PAWSAT OUTPATIEN 1 1 Jan T VISIT 10 MINUTES OFFICE 66057 ARAMBULA ARAMBULA OUTPATIEN 1 1 DON DON T VISIT 15 MINUTES EMERGENCY 17814 EMILY NAVARRO [facility] VIS[facility] MODERATE SEVERITY OFFICE 78132 ARAMBULA ARAMBULA OUTPATIEN 1 1 DON DON T VISIT 15 MINUTES HOSPITAL [facility] - 1 1 [facility] OUTPATIEN INC T OFFICE 84198 ARAMBULA ARAMBULA OUTPATIEN 1 1 DON DON T VISIT 15 MINUTES OFFICE 38617 ARAMBULA ARAMBULA OUTPATIEN 1 1 DON DON T VISIT 15 MINUTES OFFICE 22133 [place] OUT[facility]IEN 1 1 [place] [facility] 30 CLINIC MINUTES PSC OFFICE 24715 ARAMBULA ARAMBULA OUTPATIEN 1 1 DON DON T VISIT 15 MINUTES OFFICE 25991 PAWSAT PAWSAT OUTPATIEN 1 1 MAR MAR T NEW 20 MINUTES HOSPITAL [facility] - 1 1 [facility] INC T OFFICE 69277 [facility] OUTPATI[facility] 1 1 [place] T VISIT CLINIC 25 PSC MINUTES OFFICE 73253 ARAMBULA ARAMBULA OUTPATIEN 1 1 DON DON T VISIT 15 MINUTES OFFICE 94703 ARAMBULA ARAMBULA OUTPATIEN 1 1 DON DON T VISIT 15 MINUTES OFFICE 05869 ARAMBULA ARAMBULA OUTPATIEN 1 1 DON DON T VISIT 15 MINUTES OFFICE 79170 [facility] OUTPATIEN 1 1 [facility] VIS[facility] HOSPITAL 15 P MINUTES OFFICE 89474 ARAMBULA ARAMBULA OUTPATIEN 1 1 DON DON T VISIT 15 MINUTES OFFICE 04573 ARAMBULA ARAMBULA OUTPATIEN 1 1 DON DON T VISIT 15 MINUTES HOSPITAL [facility] - 1 1 [facility] OUTPATIEN INC T OFFICE 81362 ARAMBULA ARAMBULA OUTPATIEN 1 1 DON DON T VISIT 15 MINUTES OFFICE 96621 ARAMBULA ARAMBULA OUTPATIEN 0 0 DON DON T VISIT 15 MINUTES OFFICE 39545 ARAMBULA ARAMBULA OUTPATIEN 0 0 DON DON T VISIT 15 MINUTES OFFICE 78806 ARAMBULA ARAMBULA OUTPATIEN 0 0 DON DON T VISIT 15 MINUTES OFFICE 81556 TYESHA ARZATES OUTPATIEN 0 0 DON DON T VISIT 15 MINUTES [facility] - 0 0 [facility] OUTPAT[facility]EN INC T EMERGENCY 88890 [facility] 0 0 [facility] DEPARTMEN INC T VISIT LOW/MODER SEVERITY EMERGENCY 28233 EMILY BOOTH 0 0 EMERGENCY [facility] DEPARTMEN SERVICES T VISIT HIGH/URGE NT SEVERITY OFFICE 08963 TYESHA ARZATES OUTPATIEN 0 0 DON DON T VISIT 15 MINUTES [facility] - 0 0 [facility] OUTPAT[facility]EN INC T OFFICE 40219 TYESHA ARZATES OUTPATIEN 0 0 DON DON T VISIT 15 MINUTES OFFICE 87495 [facility] ESTIV[facility] JR OUTPATIEN 0 0 LTH VARUN T VISIT UROLOGY 15 PSC MINUTES OFFICE 16521 TYESHA JAMESONHENS OUTPATIEN 0 0 DON DON T VISIT 15 MINUTES OFFICE 80443 [facility] ESTIVEN JR OUTPATIEN 0 0 LTH VARUN T NEW 20 UROLOGY MINUTES PSC OFFICE 79162 TYESHA ARZATES OUTPATIEN 0 0 DON DON T VISIT 15 MINUTES OFFICE 87074 TYESHA ARZATES OUTPATIEN 0 0 DON DON T VISIT 15 MINUTES OFFICE 50404 ARAMBULA, ARAMBULA, OUTPATIEN 0 0 DON R DON R T VISIT 15 MINUTES EMERGENCY 24063 [facility] 0 0 [facility] DEPARTMEN INC T VISIT LIMITED/M INOR PROB EMERGENCY 34983 EMILY BOOTH, 0 0 EMERGENCY [facility] DEPARTMEN SERVICES T VISIT HIGH/URGE ASSOCIATE NT S SEVERITY [facility] - 0 0 [facility] OUTPATIEN INC T OFFICE 70359 TYESHA ARAMBULA OUTPATIEN 0 0 DON R DON R T VISIT 15 MINUTES OFFICE 29043 JAIME FELYBANDAR 0 0 AKIKO Johnson T VISIT CLINIC 15 PSC MINUTES OFFICE 47937 TYESHA ARAMBULA OUTPATIEN 0 0 DON R DON R T VISIT 15 MINUTES EMERGENCY 46848 EMILY GUNN, 0 0 EMERGENCY [facility] SERVICES M T VISIT HIGH/URGE ASSOCIATE NT S SEVERITY [facility] OMARI - 0 0 [facility] OUTPATIEN INC T EMERGENCY 86340 [facility] 0 0 [facility]/M INOR PROB OFFICE 22210 TYESHA ARAMBULA OUTPATIEN 0 0 DON R DON R T VISIT 15 MINUTES [facility] - 0 0 [facility] OUTPATIEN INC T OFFICE 03189 TYESHA ARAMBULA OUTPATIEN 0 0 DON R DON R T VISIT 15 MINUTES [facility] - 0 0 [facility] OUTPATIEN INC T OFFICE 14260 [place] BANDAR MCLAIN 0 0 AND HAND NANDO A T NEW 10 SURGEONS MINUTES PSC OFFICE 39231 TYESHA ARAMBULA OUTPATIEN 0 0 DON R DON R T VISIT 25 MINUTES OFFICE 62394 T[facility] ARAMBULA OUTPATIEN 0 0 DON R DON R T VISIT 15 MINUTES OFFICE 10152 [facility] ARAMBULA OUTPATIEN 9 9 DON R DON R T VISIT 15 MINUTES OFFICE 48453 [facility] AR[facility] OUTPATIEN 9 9 DON R DON R T VISIT 15 MINUTES [facility] T EMERGENCY 65092 RADHA CHAVEZ 9 9 EMERGENCY MADDY S VISIT SERVICES HIGH SEVERITY& ASSOCIATE THREAT S [facility] - 9 9 [facility] IN[facility]IENT [facility] OFFICE 91112 TYES[facility] ARAMBULA OUTPATIEN 9 9 DON R DON R T VISIT 15 MINUTES OFFICE 91900 TYES[facility] ARAMBULA OUTPATIEN 9 9 DON R DON R T VISIT 15 MINUTES OFFICE 88393 T[facility] ARAMBULA OUTPATIEN 9 9 DON R DON R T VISIT 15 MINUTES OFFICE 53378 [facility] ARAMBULA OUTPATIEN 9 9 DON R DON R T VISIT 25 MINUTES [facility] 9 [facility] T EMERGENCY 92439 [facility] 9 9 [facility] DEPARTMEN INC T VISIT MODERATE SEVERITY EMERGENCY 36664 EMILY RAINES, 9 9 EMERGENCY [facility] DEPARTMEN SERVICES T VISIT HIGH/URGE ASSOCIATE NT S SEVERITY [facility] - 9 9 [facility] OUTPATIEN INC T OFFICE 83225 BANDAR CARRASCO 9 9 [facility] Johnson T VISIT CLINIC 25 PSC MINUTES OFFICE 56110 T[facility] ARAMBULA OUTPATIEN 9 9 DON R DON R T VISIT 15 MINUTES OFFICE 18992 BANDAR CARRASCO 9 9 [facility] Johnson T VISIT CLINIC 25 PSC MINUTES [facility] T OFFICE 23129 T[facility] ARAMBULA OUTPATIEN 9 9 DON R DON R T VISIT 15 MINUTES OFFICE 64771 [facility] ARAMBULA OUTPATIEN 9 9 DON R DON R T VISIT 15 MINUTES OFFICE 95871 [facility] ARAMBULA OUTPATIEN 8 8 DON R DON R T VISIT 15 MINUTES OFFICE 14659 [facility] ARAMBULA OUTPATIEN 8 8 DON R DON R T VISIT 15 MINUTES OFFICE 64990 T[facility] ARAMBULA OUTPATIEN 8 8 DON R DON R T VISIT 15 MINUTES OFFICE 30149 [facility] BELL 8 8 [facility] 45 CLINIC MINUTES [facility] EMERGENCY [address] [place] [id number] 8 [facility] SE[facility] [address] [facility] [address] EM[facility]GENCY [facility], DEPT 8 8 PHYS CARL W VISIT [place] HIGH SEVERITY& THREAT [facility] - 8 8 [facility] T OFFICE 33846 TYESHA ARAMBULA OUTPATIEN 8 8 DON R DON R T VISIT 15 MINUTES OFFICE 40340 TYES[facility] ARAMBULA OUTPATIEN 8 8 DON R DON R T VISIT 15 MINUTES OFFICE 70215 [facility] ARAMBULA OUTPATIEN 8 8 DON R DON R T VISIT 15 MINUTES OFFICE 35681 T[facility] ARAMBULA OUTPATIEN 8 8 DON R DON R T VISIT 15 MINUTES OFFICE 84732 [facility] ARAMBULA OUTPATIEN 8 8 DON R DON R T VISIT 15 MINUTES
--- OUTSIDE RECORDS SUMMARY | 2017-08-19 19:16 | External Medical Summary Rpt | CCD ---
Demographics Preferred Language Latvian Marital Status Unknown Lutheran Affiliation Unknown Race Unknown Ethnic Group Unknown Author Author , KARLIE ZIEGLER Address Unknown Phone Immunization No patient found.
--- OUTSIDE RECORDS SUMMARY | 2017-08-19 19:16 | External Medical Summary Rpt ---
Author Author KARLIE Pacheco, KARLIE Pacheco Organization [employer] Address Unknown Phone Unavailable
--- OUTSIDE RECORDS SUMMARY | 2017-08-19 19:16 | External Medical Summary Rpt | CCD ---
Demographics Preferred Language Indonesian Marital Status Unknown Spiritism Affiliation Unknown Race Unknown Ethnic Group Unknown Author Author , KARLIE ZIEGLER Address Unknown Phone Immunization No patient found.
--- OUTSIDE RECORDS SUMMARY | 2017-08-19 20:42 | External Medical Summary Rpt | CCD ---
Author Author , KARLIE ZIEGLER Address Unknown Phone [email or web address] Care Team Providers Care Truck Manager Name Role Phone ALFARIS MOH, ALFARIS Unavailable Unavailable MOH ALLRAN JR MANJINDER, ALLRAN Unavailable Unavailable JR MANJINDER ANJUR-KAPALI CORNELIA, Unavailable Unavailable ANJUR-KAPALI CORNELIA [facility] Unavailable Unavailable [facility], [facility] Unavailable Unavailable [facility], [facility] GUPTA BRO, GUPTA Unavailable Unavailable BRO BEINEKE ANGELIKA, BEINEKE Unavailable Unavailable ANGELIKA ACACIA CASSANDRA, BESSON Unavailable Unavailable CASSANDRA ROGER, CARITO A, Unavailable Unavailable BESSON CARITO A SALVADOR, SALVADOR Unavailable Unavailable SALVADOR ALL, SALVADOR ALL Unavailable Unavailable [facility], Unavailable Unavailable [facility] Unavailable Unavailable SERVICE, [facility]available Unavailable SERVICE, [facility] ANDREA RAE IGN, Unavailable Unavailable ANDREAKeshawn MCBRIDE IGN CARL ACKERMAN W, Unavailable Unavailable CARL ACKERMAN W DAMIAN SAJAN, DAMIAN SAJAN Unavailable Unavailable [facility] Unavailable Unavailable CAMPUS, [facility] Unavailable Unavailable ANESTHESIA, [facility] Unavailable Unavailable [facility] & Unavailable Unavailable DUBILIER, [facility], Unavailable Unavailable [facility] BARROW JANET, BARROW Unavailable Unavailable JANET [facility] Unavailable Unavailable [place], [facility]available Unavailable [facility], [facility] Unavailable Unavailable P[facility], [facility] Unavailable Unavailable THE [facility], [facility] GARTH JOH, GARTH Unavailable Unavailable ORTEGA VIVAS, Unavailable Unavailable MARTINE SALDIVAR JR, Unavailable Unavailable MARTINE LIANG JR, ESTIVEN Unavailable Unavailable ZACH BROWN Unavailable Unavailable ZACH LATRELL, Unavailable Unavailable ZACH LATRELL ZACH, DEAN, Unavailable Unavailable ZACH, DEAN FEEBACK, FEEBACK Unavailable Unavailable ARMIN RAINES P, Unavailable Unavailable ARMIN RAINES SAJAN, LEOBARDO Unavailable Unavailable SAJAN MADDY STARK S, Unavailable Unavailable MADDY STARK [facility] Un[facility] Unavailable [facility], [facility] Unavailable Unavailable HOSPITAL P, [facility], Unavailable Unavailable [facility] HORN SAJAN, HORN SAJAN Unavailable Unavailable HORN MADDY E, Unavailable Unavailable HORNMADDY E BRENNAN JOSHI, BRENNAN Unavailable Unavailable ADI MAK, MAK Unavailable Unavailable LUCAS TRA, LUCAS TRA Unavailable Unavailable MANUELA ORTEGA, MANUELA Unavailable Unavailable ORTEGA CASEY CHARLES, CASEY CHARLES Unavailable Unavailable [facility] Unavailable Unavailable GROUP PS, [facility] Un[facility], [facility] Unavailable Unavailable IMAGING [facility], [facility] Unavailable Unavailable MEDICAL G, [facility] KORBA ORTEGA, KORBA ORTEGA Unavailable [...] YOJANA E, Unavailable Unavailable ISMAEL, YOJANA E [facility] Unavailable Unavailable [facility], [facility] Unavailable Unavailable LABORATORY, [facility] Unavailable Unavailable SERVICES, [facility] RAY AND, Unavailable Unavailable RAY AND MAYDA SIMMONS JORGE Unavailable Unavailable MAYDA Hollis JR, WILLIAM F MARCO TRISTAN, Unavailable Unavailable MARCO TRISTAN WILLIAM F, Unavailable Unavailable JORGE GAMINO CLAUDETTE ORTEGA, CLAUDETTE Unavailable Unavailable ORTEGA MAHESH BELL, Unavailable Unavailable ARABELLA MAHESH M [facility] Unavailable Unavailable [facility], [facility] NANDO PEREZ, Unavailable Unavailable CHRIS, NANDO A [facility], Unavailable Unavailable PLLC, [facility] [...] Unavailable Unavailable EQUIPME, [facility] Unavailable Unavailable EMERGENCY PHYS, [facility] NISHA SHE, Unavailable Unavailable NISHA SHE [facility], Unavailable Unavailable [facility], Unavailable Unavailable [facility] ARAMBULA DON, Unavailable Unavailable ARAMBULA DON ARAMBULA DON, Unavailable Unavailable ARAMBULA DON ARAMBULA, DON R, Unavailable Unavailable ARAMBULA, DON R LILO RALPH, LILO Unavailable Unavailable ONOFRE URIBE, Unavailable Unavailable ONOFRE GUNN FOR, WALKER Unavailable Unavailable FOR WILBER BOND, Unavailable Unavailable WILBER Arias Unavailable Unavailable Jorge KIM MD, III, MD, ELAINE Unavailable Unavailable MUSA MAT, MUSA MAT Unavailable Unavailable Purpose Continuity of Care Document - 11-18-2007 through 2016 Problems Code Diagnosis DOS Provider Status [id number] UNSPECIFIED 07-17-2017 [facility] [place] [facility] INITIAL ENCOUNTER [id number] CONTUSION 07-17-2017 [facility] LEFT [place] FOREARM [facility]A INITIAL ENCOUNTER [id number] LACERATION 07-17-2017 ST. W/O FOREIGN [place] BODY LT [facility] FOREARM INITIAL [id number] OTHER LONG 07-17-2017 . TERM [place] CURRENT [facility]THA DRUG THERAPY Z9181 HISTORY OF 07-17-2017 [facility] E875 HYPERKALEMI 07-06-2017 [facility] D649 ANEMIA 07-02-2017 [facility] UNSPECIFIED [facility] I10 ESSENTIAL 07-02-2017 [facility] PRIMARY [facility] HYPERTENSIO INC N K219 GASTRO-ESOP 07-02-2017 [facility] H REFLUX [facility] DISEASE INC WITHOUT ESOPHAGITIS N183 CHRONIC 07-02-2017 [facility] KIDNEY [facility] DISEASE INC STAGE 3 MODERATE [id number] UNSPECIFIED 06-28-2017 [facility] HOME WITH ACUTE MEDICAL EXACERBATIO EQUIPME N J90 PLEURAL 06-16-2017 [place] EFFUSION MEDICAL NOT IMAGING ASS ELSEWHERE CLASSIFIED R0602 SHORTNESS 06-16-2017 [place] OF BREATH [facility] ASS R062 WHEEZING 06-16-2017 [facility] R918 OTHER 06-16-2017 [place] NONSPECIFIC MEDICAL ABNORMAL IMAGING ASS FINDING OF LUNG FIELD I119 HYPERTENSIV 06-01-2017 [facility] E HEART PHYSICIANS DISEASE GROUP WITHOUT HEART FAILURE I4891 UNSPECIFIED 06-01-2017 [facility] ATRIAL PHYSICIANS FIBRILLATIO GROUP N R0600 DYSPNEA 06-01-2017 [facility] UNSPECIFIED [facility] INC Z950 PRESENCE OF 06-01-2017 [facility] CARDIAC PHYSICIANS PACEMAKER GROUP 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 [facility] 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 ANGINA PECTORIS I351 NONRHEUMATI 04-27-2017 [facility] C AORTIC PHYSICIANS VALVE GROUP INSUFFICIEN CY R296 REPEATED 04-27-2017 [facility] FALLS PHYSICIANS GROUP R5383 OTHER 04-27-2017 [facility] FATIGUE PHYSICIANS GROUP Z08313 PAIN IN 04-23-2017 [place] LEFT ARM MEDICAL IMAGING ASS F93423 PAIN IN 04-23-2017 [facility] LEFT UPPER [facility] ARM INC R2232 LOCALIZED 04-23-2017 [facility] SWELLING [facility] MASS AND INC LUMP LEFT UPPER LIMB R600 LOCALIZED 04-23-2017 [place] EDEMA [facility] C8597 NON-HODGKIN 04-20-2017 [facility] LYMPHOMA [facility] UNSPECIFIED INC SPLEEN I272 OTHER 04-20-2017 [facility] SECONDARY [facility] PULMONARY INC HYPERTENSIO N I495 SICK SINUS 04-20-2017 [facility] SYNDROME PHYSICIANS GROUP R001 BRADYCARDIA 04-20-2017 [facility] PHYSICIANS UNSPECIFIED GROUP R002 PALPITATION 04-20-2017 [facility] S PHYSICIANS GROUP I482 CHRONIC 04-02-2017 [place] [facility] ATRIAL SERV FIBRILLATIO FOUNDATION N C8590 NON-HODGKIN 03-22-2017 [place] LYMPHOMA MEDICAL UNS IMAGING ASS UNSPECIFIED SITE I209 ANGINA 03-16-2017 [facility] PECTORIS [facility] UNSPECIFIED INC I208 OTHER FORMS 03-10-2017 [facility] OF ANGINA [facility] PECTORIS INC R83034 PERSONAL 02-26-2017 [place] [facility] OTH SERV [facility] THROMBOSIS& EMBOLISM U51700 ACUTE EMBO 02-23-2017 [facility] THROMB UNS PHYSICIANS DEEP VEINS GROUP UNS LOW EXTREM R42 DIZZINESS 02-23-2017 [facility] AND PHYSICIANS GIDDINESS GROUP I499 CARDIAC 02-03-2017 [facility] UNSPECIFIED [facility]OSPITAL P I517 CARDIOMEGAL 02-03-2017 [facility] MEDICAL IMAGING ASS S40456 SPONDYLOSIS 02-03-2017 [place] W/O MEDICAL MYELOPATH/R IMAGING ASS ADICULOPATH Y CERV RGN Y61111 OTHER 02-03-2017 [place] CERVICAL MEDICAL DISC IMAGING ASS DEGENERATIO N AT C5-C6 LEVEL L79742 OTHER 02-03-2017 [place] CERVICAL MEDICAL DISC IMAGING ASS DEGENERATIO N AT C6-C7 LEVEL M542 CERVICALGIA 02-03-2017 [facility] M545 LOW BACK 01-13-2017 [facility] PAIN [facility] INC R109 UNSPECIFIED 01-13-2017 [facility] ABDOMINAL [facility] PAIN INC R110 NAUSEA 01-13-2017 [facility] INC Z8673 PERSONAL HX 01-13-2017 [facility] TIA & [facility] CEREB INC INFARCT NO RESID DEFICIT X80511 PAIN IN 01-05-2017 [place] LEFT HIP MEDICAL IMAGING ASS R16258J FRACTURE 01-05-2017 [facility] LT IMAGING ASS PUBIS INIT ENC CLOS FX Z48061P OTHER SPEC 01-05-2017 [facility] FX LT PUBIS PHYSICIANS, INITIAL PLLC CLOS FRACTURE J209 ACUTE 11-30-2016 ISMAEL JR BRONCHITIS UNSPECIFIED Z6830 BODY MASS 11-30-2016 SIMAEL JR INDEX BMI 30.0-30.9 ADULT H903 SENSORINEUR 08-04-2016 [place] EAR NOSE AL HEARING AND THROAT LOSS BILATERAL H905 UNSPECIFIED 08-04-2016 [facility] AL HEARING LOSS D539 NUTRITIONAL 06-08-2016 [facility] AN[facility] HEALTH UNSPECIFIED CAMPUS D62 ACUTE 06-08-2016 [facility] POSTHEMORRH HEALTH AGIC ANEMIA CAMPUS R410 DISORIENTAT 06-08-2016 [facility] ION HEALTH UNSPECIFIED CAMPUS Y88161S FX UNS PART 06-08-2016 [place] NECK LT HEALTH FEMUR CAMPUS SUBSQT CLOS FX RTN L13030 PRESENCE OF 06-08-2016 [facility] [place] LEFT [facility] HIP JOINT M659 SYNOVITIS 04-27-2016 [facility] & TENOSYNOVIT DUBILIER IS UNSPECIFIED R2242 LOCALIZED 04-27-2016 [place] SWELLING MEDICAL MASS AND IMAGING ASS LUMP LEFT LOWER LIMB J226GYQ INFECTION 04-27-2016 [facility] FOLLOWING [facility] PROCEDURE INC INITIAL ENCOUNTER Z4889 ENCOUNTER 04-27-2016 [facility] FOR OTHER [facility] SPECIFIED INC SURGICAL AFTERCARE Z471 AFTERCARE 04-23-2016 [place] FOLLOWING MEDICAL JOINT IMAGING ASS REPLACEMENT SURGERY Z7401 BED 04-09-2016 [facility] AMBULANCE STATUS SERVICE I129 HYPERTENSIV 04-05-2016 [facility] Elizabeth [facility] W/STAGE 1-4 [facility] P CKD OR UNS CKD H39735 [place]D [place] 04-05-2016 [facility] CARLOS [facility]MA [facility] W/UNS INC ANGINA PECTORIS W47896 PAIN IN 04-05-2016 [place] LEFT THIGH MEDICAL IMAGING ASS N179 ACUTE 04-05-2016 [place] [facility] P UNSPECIFIED R079 CHEST PAIN 04-05-2016 [place] UNSPECIFIED MEDICAL IMAGING ASS U51553V FX UNS PART 04-05-2016 [facility] NECK LT PHYSICIANS, FEMUR PLLC INITIAL ENC CLOS FX [id number] UNS 04-05-2016 [place] INTRACAPSUL MEDICAL AR FX LT IMAGING ASS FEMUR INIT ENC CLOS FX [id number] UNSPECIFIED 04-05-2016 [facility] FALL PHYSICIANS INITIAL GROUP ENCOUNTER Z9889 OTHER 04-05-2016 [place] SPECIFIED MEDICAL POSTPROCEDU IMAGING ASS [facility] STATES R0781 PLEURODYNIA 03-30-2016 [facility] R0789 OTHER CHEST 03-30-2016 [facility] PAIN PHYSICIANS, PLLC R911 SOLITARY 03-30-2016 [place] PULMONARY MEDICAL NODULE IMAGING ASS R1031 RIGHT LOWER 03-23-2016 [facility] QUADRANT PHYSICIANS PAIN GROUP R197 DIARRHEA 02-25-2016 [facility] UNSPECIFIED ANESTH OF THE BLUE L299 PRURITUS 02-21-2016 ISMA[facility] UNSPECIFIED YOJANA H49029 SPONDYLOSIS 02-21-2016 ISMA[facility] W/O YOJANA MYELOPATH/R ADICULPATHY LS RGN N281 CYST OF 02-21-2016 [place] KIDNEY MEDICAL ACQUIRED IMAGING ASS R1030 LOWER 02-21-2016 [facility] ABDOMINAL YJOANA PAIN UNSPECIFIED R312 OTHER 02-21-2016 [facility] MICROSCOPIC YOJANA HEMATURIA R319 HEMATURIA 02-21-2016 [place] UNSPECIFIED MEDICAL IMAGING ASS Z6833 BODY MASS 02-21-2016 ISMA[facility] INDEX BMI YOJANA 33.0-33.9 ADULT R05 COUGH 01-07-2016 [facility] R509 FEVER 01-07-2016 [place] UNSPECIFIED MEDICAL IMAGING ASS A084 VIRAL 12-18-2015 [facility] INTESTINAL YOJANA INFECTION UNSPECIFIED M150 PRIMARY 09-30-2015 [facility] GENERALIZED PHYSICIANS LA OSTEOARTHRI TIS Z23 ENCOUNTER 08-30-2015 IS[facility] FOR YOJANA IMMUNIZATIO N Z6831 BODY MASS 08-30-2015 IS[facility] INDEX BMI YOJANA 31.0-31.9 ADULT 2761 HYPOSMOLALI 08-02-2015 [facility] TY AND/OR [facility] HYPONATREMI INC A 2859 UNSPECIFIED 08-02-2015 [facility] ANEMIA [facility] INC 55787 UNS 08-02-2015 [facility] GASTRITIS&G [facility] ASTRODUODIT INC IS W/O MENTION HEMORR 05828 PAIN IN 08-02-2015 [place] JOINT MEDICAL PELVIC IMAGING ASS REGION AND THIGH 86756 OTHER 07-15-2015 [facility] DYSPNEA AND CO AMBULANCE RESPIRATORY TAXIN ABNORMALITI ES 0093 DIARRHEA OF 07-02-2015 ISMAEL PRESUMED YOJANA INFECTIOUS ORIGIN 4011 ESSENTIAL 07-02-2015 [facility] HYPERTENSIO YOJANA N, BENIGN 5853 CHRONIC 07-02-2015 [facility] KIDNEY YOJA[facility] DISEASE STAGE III (MODERATE) 7242 LUMBAGO 07-02-2015 [place] [address] OTHER 07-02-2015 ISMAEL MALAISE AND YOJANA FATIGUE V8533 BODY MASS 07-02-2015 ISMA[facility] INDEX YOJANA 33.0-33.9 ADULT 7295 PAIN IN 06-24-2015 [place] SOFT MEDICAL TISSUES OF IMAGING ASS LIMB 7823 EDEMA 06-24-2015 [facility] 2724 OTHER AND 06-21-2015 ISMAEL UNSPECIFIED YOJANA HYPERLIPIDE SHERYL 47642 DEHYDRATION 06-21-2015 ISMAEL YOJANA 412 OLD 06-21-2015 [facility] MYOCARDIAL YOJANA INFARCTION 87166 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 IS[facility] NODE YOJANA DYSFUNCTION 59355 ATROPHIC 06-21-2015 [facility] GASTRITIS YOJANA WITHOUT MENTION OF HEMORRHAGE 45483 OTHER 06-21-2015 [place] ALTERATION [place] [address] FEVER 06-21-2015 ISMAEL UNSPECIFIED YOJANA 21209 ALTERED 06-21-2015 [place] MENTAL MEDICAL STATUS IMAGING ASS 7862 COUGH 06-21-2015 [facility] V1079 PERSONAL HX 06-21-2015 [facility] OTH Y[facility]NA LYMPHATIC&H EMATOPOIETI C NEOPLASM V1254 PERSONAL HX 06-21-2015 [facility] TIA & CI YOJANA W/O RESIDUAL DEFICITS 5990 URINARY 06-12-2015 [facility] TRACT PHYSICIANS INFECTION LA SITE NOT SPECIFIED 26152 OTH & UNS E 05-28-2015 [facility] COLI [facility] INFECTION INC CLASS ELSW UNS SITE 21551 UNSPECIFIED 05-24-2015 [place] [address] GENERALIZED 05-24-2015 ISMAEL YOJANA OSTEOARTHRO SIS UNSPECIFIED SITE 7213 LUMBOSACRAL 05-24-2015 ISMAEL YOJANA SPONDYLOSIS WITHOUT MYELOPATHY V8534 BODY MASS 05-24-2015 ISMAEL INDEX YOJANA 34.0-34.9 ADULT 78418 ABDOMINAL 04-15-2015 [facility] PAIN RIGHT PHYSICIANS LOWER GROUP QUADRANT 17743 PAIN IN 03-26-2015 [facility] JOINT, MEM HOS[facility] SHOULDER INC REGION 24766 DIARRHEA 03-26-2015 [facility] INC 40183 OTH MALIG 03-01-2015 [place] LYMPHOMAS MEDICAL UNS SITE IMAGING ASS XTRANOD&SEBAS ID ORGN 5932 ACQUIRED 03-01-2015 [place] CYST OF MEDICAL KIDNEY IMAGING ASS 92462 ABDOMINAL 03-01-2015 [facility] PAIN, LEFT [facility] LOWER INC QUADRANT 04983 ESOPHAGEAL 01-30-2015 [facility] REFLUX PHYS SURG CTR 97631 GASTR ULCR 01-30-2015 [facility] UNS PHYS SURG ACUT/CHRN CTR W/O HEMOR PERF/OBST 5379 UNSPECIFIED 01-30-2015 [facility] DISORDER [facility] & OF STOMACH DUBILIER AND DUODENUM 86654 NAUSEA 01-30-2015 [facility] [place] [facility] 14629 ABDOMINAL 01-30-2015 [facility] PAIN, [place] EPIGASTRIC ANESTHESIA 09397 NONEXUDATIV 01-29-2015 [place] 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 77573 REGULAR 01-29-2015 [place] ASTIGMATISM [facility] 45062 OTHER 01-25-2015 IS[facility] SPECIFIED YOJANA ERYTHEMATOU S CONDITION OTHER 460 ACUTE 12-19-2014 ISMA[facility] NASOPHARYNG YOJANA ITIS 61236 ASTHMA, 12-19-2014 [facility] UNSPECIFIED YOJANA , UNSPECIFIED STATUS 4660 ACUTE 12-16-2014 [facility] BRONCHITIS [facility] INC V8535 BODY MASS 12-07-2014 [facility] INDEX YOJANA 35.0-35.9 ADULT 4779 ALLERGIC 10-30-2014 IS[facility] RHINITIS YOJANA CAUSE UNSPECIFIED 4019 UNSPECIFIED 10-18-2014 [facility] ESSENTIAL [facility] HYPERTENSIO INC N 65749 COR 10-18-2014 [facility] ATHEROSLERO [facility] UNSPEC INC TYPE VESSEL [place] T 36311 CHEST PAIN 10-18-2014 [place] [facility] U[facility]PECIFIED SERV [facility]OUNDATION 41186 CORONARY 10-11-2014 [facility] OSIS [place] MEDICAL G CORONARY ARTERY 7851 PALPITATION 10-11-2014 [facility] MEDICAL G 42525 PRECORDIAL 10-11-2014 [facility] MEDICAL G 4610 ACUTE 10-01-2014 ISMAEL MAXILLARY [place] SINUSITIS 4720 CHRONIC 10-01-2014 ISMAEL RHINITIS YOJANA 7881 DYSURIA 10-01-2014 ISMAEL YOJANA 67085 SHORTNESS 09-18-2014 [place] [facility] BREATH [facility]ICAL IMAGING ASS 4139 OTHER AND 09-12-2014 [facility] UNSPECIFIED [facility] ANGINA INC PECTORIS 5758 OTHER 09-12-2014 [facility] SPECIFIED [facility] DISORDER OF INC GALLBLADDER 66890 OTHER 09-12-2014 [facility] CONVULSIONS [facility] INC 54354 OTHER CHEST 09-12-2014 [facility] EMERG[facility]Y PHYS V140 PERSONAL 09-12-2014 [facility] ALLERGY TO [facility] P [place] V148 PERSONAL 09-12-2014 [facility] SPE[facility] MEDICINAL AGTS V1582 PERS HX 09-12-2014 [facility] TOBACCO USE [facility] PRESENTING INC [facility] V719 OBSERVATION 09-12-2014 [place] FOR MEDICAL UNSPECIFIED IMAGING ASS SUSPECTED CONDITION 19108 UNSPEC 08-28-2014 [facility] DISORDERS YOJANA BURSAE&TEND ONS SHOULDER REGION 12214 CONTUSION 08-28-2014 ISMA[facility] OF SHOULDER YOJANA REGION [...] MYOSITIS 7827 SPONTANEOUS 08-06-2014 [facility] ECCHYMOSES YOJANA 97294 DIVERTICULI 07-24-2014 [facility] TIS OF Y[place]NA COLON 7243 SCIATICA 07-16-2014 [facility] 5693 HEMORRHAGE 05-21-2014 [facility] OF RECTUM [place] AND ANUS 7802 SYNCOPE AND 05-21-2014 [facility] COLLAPSE [place]NA 5589 OTH&UNSPEC 05-09-2014 [place] NONINFECTIO [facility] P GASTROENTER ITIS&COLITI S 42513 NAUSEA WITH 05-09-2014 [place] VOMITING [facility] P E9390 ANTIDEPTSSN 05-09-2014 [facility] CAUS [facility] P EFFECT THERAPEUTIC USE 99590 OTHER 05-08-2014 [facility] SPECIFIED N EMERGENCY CARDIAC PHYS DYSRHYTHMIA S 5789 UNSPECIFIED 05-08-2014 ISMAEL HEMORRHAGE YOJANA OF GASTROINTES TINAL TRACT 7852 UNDIAGNOSED 05-08-2014 [place] [facility] CARDIAC SERV MUR[place]URS FOUNDATIO 496 CHRONIC 03-06-2014 [place] AIRWAY MEDICAL OBSTRUCTION IMAGING ASS NEC 5110 PLEURISY 03-06-2014 [facility] WITHOUT YOJANA MENTION EFFUS/CURRE NT TB 7197 DIFFICULTY 03-06-2014 [place] IN WALKING MEDICAL IMAGING ASS 15205 CONTUSION 03-06-2014 ISMA[facility] OF FOOT YOJANA 8488 OTHER 02-26-2014 [facility] SPECIFIED N EMERGENCY SITES OF PHYS SPRAINS AND STRAINS V141 PERSONAL 02-26-2014 [facility] ALLERGY INC OTHER ANTIBIOTIC AGENT 55952 UNSPECIFIED 01-26-2014 [facility] VIRAL N EMERGENCY INFECTION PHYS IN CCE & UNS SITE 7245 UNSPECIFIED 01-26-2014 [facility] BACKACHE N EMERGENCY PHYS 0091 COLITIS 01-04-2014 [facility] ENTERIT&GAS HOME TROENTERIT MEDICAL INF ORIGIN EQUIPME 436 ACUTE BUT 01-04-2014 [facility] ILL-DEFINED HOME MEDICAL CEREBROVASC EQUIPME ULAR DISEASE 7231 CERVICALGIA 10-24-2013 [facility] 3674 PRESBYOPIA 07-03-2013 [facility] V431 LENS 07-03-2013 [place] REPLACED BY EYE OTHER INSTITUTE MEANS 7224 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-30-2013 [facility] [place] 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 72834 MACULAR 04-04-2013 [facility] DEGENERATIO DON N OF RETINA UNSPECIFIED 00027 STRABISMIC 03-22-2013 [place] [facility] AMBLYOPIA SERV FOUNDATIO 59721 OTHER 03-22-2013 [place] [facility] VITREOUS SERV OPACITIES FOUNDATIO 8052 CLOS FX 02-27-2013 [facility] DORS DON VERTEBRA W/O MENTION SP CORD INJURY 10612 LEUKOCYTOSI 02-23-2013 [facility] EMERGENCY UNSPECIFIED SERVICES V5878 AFTERCARE 02-23-2013 [facility] FOLLOW EMERGENCY SURGERY SERVICES MUSCULOSKEL SYSTEM NEC 47600 ACUTE PAIN 02-22-2013 [facility] DUE TO EMERGENCY TRAUMA SERVICES 07826 PATHOLOGIC 02-22-2013 [place] FRACTURE OF ANESTHESIA VERTEBRAE GROUP PS V7283 OTHER 02-21-2013 [facility] [place] SPECIFIED RADIOLOGY PRE-OPERATI VE EXAMINATION 83244 DISPLCMT 02-20-2013 [place] LUMBAR MEDICAL INTERVERT IMAGING ASS DISC W/O MYELOPATHY 50824 SPINAL STEN 02-20-2013 [place] LUMB REG MEDICAL W/O IMAGING ASS NEUROGENIC CLAUDICATIO N 805.2 805.2 FX 02-20-2013 [facility] DORSAL [facility] OSE E849.0 E849.0 02-20-2013 [facility] ACCIDENT IN [facility] E885.9 E885.9 FALL 02-20-[address] [facility] SLIPPING, Hospital TRIPPING, OR STUMBLING NEC E8888 OTHER FALL 02-20-2013 [facility] 6259 UNSPEC 02-15-2013 [place] [facility] IMAGING ASS W/FEMALE GENITAL ORGANS 7840 HEADACHE 02-15-2013 [facility] 8470 NECK SPRAIN 02-15-2013 [facility] AND STRAIN EMERGENCY SERVICES 8472 LUMBAR 02-15-2013 [facility] SPRAIN AND EMERGENCY STRAIN SERVICES 8500 CONCUSSION 02-15-2013 [facility] WITH NO EMERGENCY LOSS OF SERVICES CONSCIOUSNE SS 9222 CONTUSION 02-15-2013 [facility] OF EMERGENCY ABDOMINAL SERVICES WALL 72538 CONTUSION 02-15-2013 [facility] OF HIP [facility] INC 80894 HEAD 02-15-2013 [place] INJURY, MEDICAL UNSPECIFIED IMAGING ASS V4364 HIP JOINT 02-15-2013 [place] REPLACEMENT MEDICAL BY OTHER IMAGING ASS MEANS 4659 ACUTE URIS 02-13-2013 [facility] OF DON UNSPECIFIED SITE 7804 DIZZINESS 02-13-2013 [facility] AND DON GIDDINESS 65610 PAIN IN 01-18-2013 [facility] JOINT, [facility]OS[facility] MULTIPLE INC SITES 46039 PAIN IN 01-17-2013 [facility] JOINT, DON LOWER LEG 9597 INJURY 01-17-2013 [facility] OTHER&UNSPE DON CIFIED KNEE LEG ANKLE&FOOT 37398 UNSPECIFIED 12-27-2012 [place] [address] METHICILLIN 12-23-2012 [facility] RESISTANT [facility] STAPHYLOCOC INC CUS AUREUS 96582 OTHER 12-23-2012 [facility] DISEASES OF [facility] NASAL INC CAVITY AND SINUSES 15336 NASAL 12-06-2012 [facility] MUCOSITIS DON ULCERATIVE 7078 CHRONIC 12-06-2012 [facility] ULCER OF [facility] OTHER INC SPECIFIED SITE 3804 IMPACTED 08-03-2012 [facility] CERUMEN DON 14850 CHRONIC 08-03-2012 [facility] FATIGUE DON SYNDROME 96722 OTHER 06-22-2012 [facility] CHRONIC DON PAIN 7873 FLATULENCE 06-17-2012 [facility] ERUCTATION DON AND GAS PAIN 18496 OTHER 06-03-2012 [facility] SPECIFIED DON TYPES OF CYSTITIS 4293 CARDIOMEGAL 05-14-2012 [place] Y MEDICAL IMAGING ASS 15805 NONSPECIFIC 05-14-2012 [facility] EMERGENCY ELECTROCARD SERVICES IOGRAM V1090 PERSONAL 05-14-2012 [place] HISTORY MEDICAL UNSPECIFIED IMAGING ASS MALIGNANT NEOPLASM V711 OBSERVATION 05-14-2012 [place] FOR MEDICAL SUSPECTED IMAGING ASS MALIGNANT NEOPLASM 41421 OTHER 04-28-2012 [facility] MALIGNANT [facility] OF SPLEEN 3898 OTHER 02-17-2012 [facility] SPECIFIED DON FORMS OF HEARING LOSS 97985 GASTROJEJ 02-17-2012 [facility] ULCR UNS DON ACUT/CHRN W/O HEMOR PERF/OBST 62134 PAIN IN 01-06-2012 [facility] JOINT, SITE [facility] HOS[facility] INC UNSPECIFIED 6160 CERVICITIS 12-16-2011 [place] AND MEDICAL ENDOCERVICI IMAGING ASS TIS 3893 ACQUIRED 12-16-2011 [place] ATROPHY OF MEDICAL OVARY AND IMAGING ASS FALLOPIAN TUBE 6219 UNSPECIFIED 12-16-2011 [place] DISORDER MEDICAL OF UTERUS IMAGING ASS 35343 OSTEOARTHRO 12-11-2011 [facility] S INVLV MX DON SITES [place] 99732 HEMATURIA 11-30-2011 [facility] UNSPECIFIED DON 25955 OTHER 11-30-2011 [facility] SPECIFIED DON DISORDERS OF URINARY TRACT 72189 UNSPECIFIED 10-19-2011 [facility] OTALGIA DON 17406 MUSCLE 10-19-2011 [facility] WEAKNESS DON (GENERALIZE D) 70448 DIVERTICULO 07-22-2011 [facility] SIS OF DON COLON 1104 DERMATOPHYT 07-10-2011 [facility] OSIS OF FOOT 9168 OTH&UNS SUP 07-07-2011 [facility] INJR HIP DON THI LEG&ANK W/O MENTION INF 9190 ABRASION/FR 06-26-2011 [facility] EMERGENCY OTH MX&UNS SERVICES SITE W/O INF 5950 ACUTE 05-28-2011 NEW CYSTITIS [facility] PSC 6929 CONTACT 05-22-2011 [facility] DERMATITIS& OTHER ECZEMA DUE UNSPEC CAUSE 7011 ACQUIRED 05-22-2011 [facility] KERATODERMA 37826 OTHER 04-20-2011 [facility] SPECIFIED DON CIRCULATORY SYSTEM DISORDERS 48441 CONTUSION 04-20-2011 [facility] MULTIPLE DON SITES SHOULDER&UP PER ARM 5952 OTHER 02-05-2011 [facility] CYSTITIS [facility] P 1129 CANDIDIASIS 01-07-2011 [facility] OF DON UNSPECIFIED SITE 4280 CONGESTIVE 01-07-2011 [facility] HEART DON FAILURE UNSPECIFIED 2768 HYPOPOTASSE 12-31-2010 [facility] 8910 OPEN WOUND 10-22-2010 [facility] KNEE DON LEG&ANK WITHOUT MENTION COMP V5832 ENCOUNTER 10-22-2010 [facility] FOR REMOVAL DON OF SUTURES 27767 PHACOLYTIC 08-06-2010 [facility] 4618 OTHER ACUTE 07-29-2010 [facility] SINUSITIS DON 1880 MALIGNANT 06-26-2010 [facility] NEOPLASM OF H UROLOGY [facility] URINARY BLADDER 09651 SPASM OF 06-06-2010 [facility] MUSCLE DON 32757 DEGEN 05-04-2010 [facility] LUMBAR/LUMB EMERGENCY OSACRAL SERVICES [facility] RAL DISC OTHER MALIG 04-22-2010 NEW LYMPHOMAS PALMER LYMPH NODES [facility] MULTIPLE SITES V6709 FOLLOW-UP 01-17-2010 [place] [facility] EXAMINATION AND HAND FOLLOWING SURGEONS OTHER [facility] SURGERY 6256 FEMALE 01-13-2010 [facility], STRESS DON R INCONTINENC E V7651 SPECIAL 01-13-2010 [facility], SCREENING DON R FOR MALIGNANT NEOPLASMS COLON 1629 MALIGNANT 09-09-2009 [place] NEOPLASM [facility] UNSPEC [facility] SITE 4148 OTHER SPEC 08-30-2009 [facility], FORMS DON R CHRONIC ISCHEMIC HEART DISEASE 8208 CLOSED 08-30-2009 [facility], FRACTURE DON R UNSPECIFIED PART NECK FEMUR 25772 POSTPROCEDU 08-21-2009 [facility] PROF SERV 15750 OTHER 08-20-2009 PATHOLOGY & CLOSED CYTOLOGY TRANSCERVIC LAB AL FRACTURE OF FEMUR 76177 INF DUE OTH 08-19-2009 [facility] GM-NEGATIVE INC ORGANISMS CCE & UNS SITE 45958 ABDOMINAL 08-19-2009 [facility] PAIN OTHER EMERGENCY SPECIFIED SERVICES SITE ASSOCIATES 70206 CLOSED 08-19-2009 [facility] DISLOCATION AMBULANCE OF HIP SERVICE UNSPECIFIED SITE 9596 INJURY 08-19-2009 [facility] OTHER AND AMBULANCE UNSPECIFIED SERVICE HIP AND THIGH E8859 FALL FROM 08-19-2009 [facility] OTHER EMERGENCY SLIPPING SERVICES TRIPPING OR ASSOCIATES STUMBLING 78830 UNSPECIFIED 08-14-2009 [place] [facility] OPACITY F[facility] V0382 NEED PROPH 07-31-2009 [facility], VACCINATION DON R AGAINST STREP PNEUMONE 71384 SPRAIN AND 06-10-2009 [facility], STRAIN OF DON R UNSPECIFIED SITE OF WRIST 32616 UNSPECIFIED 06-10-2009 [facility], SITE OF DON R ANKLE SPRAIN AND STRAIN E8490 PLACE OF 06-07-2009 [place] OCCURRENCE, [facility] E8844 ACCIDENTAL 06-07-2009 [facility] FALL FROM EMERGENCY BED SERVICES [facility] 46502 SECONDARY 09-19-2008 [place] [facility] EDEMA FOUND[facility] 88691 SPONDYLOSIS 08-22-2008 NEW UNSPEC [facility] SITE W/O CLINIC PSC MENTION MYELOPATHY V1072 PERSONAL 08-22-2008 NEW HISTORY OF [facility] PSC DISEASE 89064 ATRIAL 07-01-2008 [facility] N 67555 ABDOMINAL/P 07-01-2008 [facility] SWELLING MASS/LUMP UNSPEC SITE 64327 UNSPECIFIED 03-02-2008 [facility], DON R OSTEOPOROSI S [...] er -A 2 CE Ac TA ti DE ve NO PH EN 5- 32 5 KE 00 04 0 No TO 40 -1 RO 93 0- Lo LA 79 20 ng C 60 13 er 60 1 Ac MG ti /2 ve ML AL Immunization Name Date Rout CVX Reac Dose Comm Prov Is Faci e tion ent ider Refu lity Give sed n IIV3 09- 141 STEP No STEP 1-20 HENS HENS VACC 10 DON INE SPLI T VIRU DON S 0.5 ML DOSA GE IM USE PPSV 09- 33 STEP No STEP 23 3-20 HENS HENS VACC 09 , , INE DON DON 2 R R YRS OR OLDE R FOR SUBQ /IM USE IIV3 - 141 STEP No STEP 3-20 HENS HENS VACC 09 , , INE DON DON SPLI R R T VIRU S 0.5 ML DOSA GE IM USE IIV3 08-08 141 STEP No STEP [...] SQUARE METERS Comment: If this patient is -Lithuanian, then multiply the Comment: result by 1.210. [...] Procedure DOS Code Location Performer Comment BLOOD [address] COUNT 7 [facility] COMPLETE PARTHA PARTHA AUTO&AUTO DIFRNTL WBC COLLECTIO 72386 [facility] [[email or web address] ST. N VENOUS 7 [facility] BLOOD PARTHA PARTHA VENIPUNCT URE URNLS DIP [address] 7 [facility] STICK/TAB PARTHA PARTHA LET REAGENT AUTO MICROSCOP Y RADEX [address] [facility] [facility] 7 [facility] PARTHA VIEWS [facility] [address] ROUTINE 7 [facility] ECG PARTHA PARTHA W/LEAST 12 LDS TRCG ONLY W/O I&R CULTURE [address] BACTERIAL 7 [facility] PARTHA PARTHA QUANTTATI VE COLONY COUNT URINE BASIC [address] METABOLIC 7 [facility] PANEL [place] [address] HEAD/BRAI 7 [facility] N W/O PARTHA PARTHA CONTRAST MATERIAL RADIOLOGI [address] C 7 [facility] EXAMINATI PARTHA PARTHA ON CHEST SINGLE VIEW FRONTAL BASIC 33464 [facility] 7 [facility] PANEL INC INC CALCIUM TOTAL BASIC 54229 [facility] METABOLIC 7 [facility] PANEL INC INC CALCIUM TOTAL BLOOD 73080 [facility] COUNT 7 [facility] COMPLETE INC INC AUTO&AUTO DIFRNTL WBC NEBULIZER E0570 MICHELLE MARTINEZ WITH 7 HOME HOME COMPRESSO MEDICAL MEDICAL R EQUIPME EQUIPME RADIOLOGI 40404 [facility] EXAM 7 MEDICAL CHEST 2 IMAGING VIEWS ASS FRONTAL&L ATERAL ECG 53446 [facility] ROUTINE 7 PHYSICIAN ECG S GROUP W/LEAST 12 LDS I&R ONLY ECG 99176 [facility] ROUTINE 7 [facility] ECG INC INC W/LEAST 12 LDS TRCG ONLY W/O I&R INTERROGA 07913 [facility] TION EVAL 7 PHYSICIAN REMOTE S GROUP </90 D 1/2/DIRECTOR OF MATH LEAD PM ECG 86889 [facility] ROUTINE 7 PHYSICIAN ECG S GROUP W/LEAST 12 LDS I&R ONLY ECG 71647 [facility] ROUTINE 7 [facility] ECG INC INC W/LEAST 12 LDS TRCG ONLY W/O I&R DUP-SCAN 89964 [place] [facility] XTR VEINS 7 MEDICAL IMAGING UNILATERA ASS L/LIMITED STUDY BASIC 87692 [facility]IBG SAL[facility] METABOLIC 7 [facility] PANEL INC INC CALCIUM TOTAL NONINVASI 01396 [facility] SAL[facility]IDO VE 7 [facility] EAR/PULSE INC INC OXIMETRY SINGLE DETER BLOOD 23283 O[facility] SAL[facility]IDO COUNT 7 [facility] COMPLETE INC INC AUTO&AUTO DIFRNTL WBC COLLECTIO 09518 O[facility]I CALLEON N VENOUS 7 [facility] BLOOD INC INC VENIPUNCT URE HOSPITAL G0378 [facility] OBSERVATI 7 [facility] ON INC INC SERVICE PER HOUR HOSPITAL G0378 OMARI OMARI OBSERVATI 7 [facility] ON INC INC SERVICE PER HOUR LEAD C1898 O[facility]I CALLEON PACEMKR 7 [facility] OTH THAN INC INC TRNS VDD SINGLE PASS ANES 50901 [facility]. [facility] PERMANENT 7 ANESTH OF THE TRANSVENO BLUE US PACEMAKER INSERTION PACEMAKER C1785 OMARI OMARI DUAL 7 [facility] CHAMBER INC INC RATE-RESP ONSIVE BLOOD 57605 OMARI OMARI COUNT 7 [facility] COMPLETE INC INC AUTO&AUTO DIFRNTL WBC ECG 18286 O[facility] SALCIDO ROUTINE 7 [facility] ECG INC INC W/LEAST 12 LDS TRCG ONLY W/O I&R PRESSURIZ 92976 O[facility]I SALCIDO ED/NONPRE 7 [facility] SSURIZED [place] [address] O[facility] SALCIDO INFUSION 7 [facility] THERAPY/P INC INC ROPHYLAXI S /DX 1ST TO 1 HR THERAPEUT 65542 OMARI SALCIDO IC 7 [facility] INJECTION INC INC IV PUSH EACH NEW DRUG ECG 91202 [facility] RIKI ROUTINE 7 PHYSICIAN ECG S GROUP W/LEAST 12 LDS I&R ONLY RADIOLOGI 22457 OMARI SALCIDO C 7 [facility] EXAMINATI INC INC ON CHEST SINGLE VIEW FRONTAL BASIC 26474 OMARI SALCIDO METABOLIC 7 [facility] [place] [address] OMARI SALCIDO NEW/RPLC 7 [facility] PRM INC INC PACEMAKER W/TRANSV ELTRD VENTR CT THORAX 45058 [facility] 7 MEDICAL W/CONTRAS IMAGING T ASS MATERIAL LOCM Q9967 O[facility]I SALCIDO [phone] [facility] MG/ML INC INC IODINE CONCENTRA TION PER ML CREATININ 60614 OMARI SALCIDO E BLOOD 7 [facility] [place] [address] OMARI SALCIDO UREA 7 [facility] NITROGEN INC INC QUANTITAT RIGO COLLECTIO 64025 OMARI OMRAI N VENOUS 7 [facility] BLOOD INC INC VENIPUNCT URE ECG 68828 O[facility]I SALCIDO ROUTINE 7 [facility] ECG INC INC W/LEAST 12 LDS TRCG ONLY W/O I&R ECG 07941 [facility] RIKI ROUTINE 7 PHYSICIAN ECG S GROUP W/LEAST 12 LDS I&R ONLY CV STRS 67097 O[facility]I SALCIDO TST 7 [facility] XERS&/OR INC INC RX CONT ECG TRCG ONLY INJECTION J2785 OMARI SALCIDO 7 [facility] REGADENOS INC INC ON 0.1 MG TECHNETIU A9502 OMARI Hernandez TC-99M 7 [facility] TETROFOSM INC INC IN DX PER STUDY DOSE MYOCARDIA 81652 O[facility]I SALCIDO L SPECT 7 [facility] MULTIPLE INC INC STUDIES ECG 92372 O[facility] SALCIDO ROUTINE 7 [facility] ECG INC INC W/LEAST 12 LDS TRCG ONLY W/O I&R ECG 02165 OMARI SALCIDO ROUTINE 7 [facility] ECG INC INC W/LEAST 12 LDS TRCG ONLY W/O I&R XTRNL ECG 13466 OMARI SALCIDO & 48 HR 7 [facility] RECORDING INC INC ECG 02327 [facility] RIKI ROUTINE 7 PHYSICIAN ECG S GROUP W/LEAST 12 LDS I&R ONLY ECHO 46497 OMARI SALCIDO TTHRC R-T 7 [facility] 2D INC INC W/WOM-MOD E COMPL SPEC&COLR D ECG 25261 [facility] RIKI ROUTINE 7 PHYSICIAN ECG S GROUP W/LEAST 12 LDS I&R ONLY ECG 79825 O[facility] SALCIDO ROUTINE 7 [facility] ECG INC INC W/LEAST 12 LDS TRCG ONLY W/O I&R ECG 04448 O[facility]I SALCIDO ROUTINE 7 [facility] ECG INC INC W/LEAST 12 LDS TRCG ONLY W/O I&R ECG 61693 OMARI GUEVARA JR ROUTINE 7 [facility] W/LEAST P 12 LDS I&R ONLY RADIOLOGI 73919 OMARI SALCIDO C EXAM 7 [facility] CHEST 2 INC INC VIEWS FRONTAL&L ATERAL RADEX 50005 [facility] SPINE 7 MEDICAL CERVICAL IMAGING 4 OR 5 ASS VIEWS BASIC 74720 OMARI SALCIDO METABOLIC 7 [facility] PANEL INC INC CALCIUM TOTAL BLOOD 08384 OMARI SALCIDO COUNT 7 [facility] COMPLETE INC INC AUTO&AUTO DIFRNTL WBC CT LOWER 00674 [facility] EXTREMITY 7 MEDICAL W/O IMAGING CONTRAST ASS MATERIAL CT PELVIS 43508 OMARI SALCIDO W/O 7 [facility] CONTRAST INC INC MATERIAL INJECTION J1100 ISMAEL GUEVARA JR 7 DEXAMETHO SONE SODIUM PHOSPHATE 1 MG COMPRE 55866 [place] [facility] AUDIOMETR 6 NOSE AND CLARY Y THROAT THRESHOLD EVAL SP RECOGNIJ TYMPANOME 43821 [place] [facility] TRY 6 NOSE AND CLARY THROAT BASIC 78926 COMBINED COMBINED METABOLIC 6 PHYSICIAN PHYSICIAN PANEL S LA S LA CALCIUM TOTAL BLOOD 67261 COMBINED COMBINED COUNT 6 PHYSICIAN PHYSICIAN COMPLETE S LA S LA AUTO&AUTO DIFRNTL WBC SMR PRIM 57419 O[facility]I SALCIDO SRC 6 [facility] GRAM/GIEM INC INC SA STAIN BCT FUNGI/[place] [address] OMARI SALCIDO GUIDANCE 6 [facility] NEEDLE INC INC PLACEMENT IMG S&I CYTP EVAL 71515 OMARI SALCIDO FINE 6 [facility] NEEDLE INC INC ASPIRATE INTERP & [place] [address] OMARI SALCIDO SURG 6 [facility] PATHOLOGY INC INC GROSS&SAJAN ROSCOPIC EXAM CELL 08607 OMARI SALCIDO COUNT 6 [facility] MISC BODY INC INC FLUIDS W/DIFFERE NTIAL COUNT BIOPSY 73071 OMARI SALCIDO SOFT 6 [facility] TISSUE INC INC PELVIS&HI P AREA SUPERFICI AL ARTHROCEN 61768 [facility] S[facility] TESIS 6 MEDICAL LATRELL ASPIR&/IN IMAGING J MAJOR ASS JT/BUR[place] W/[place] [address] OMARI SALCIDO EXTREMITY 6 [facility] NON-VASC INC INC REAL-TIME IMG LMTD CUL BACT 61394 OMARI SALCIDO XCPT 6 [facility] URINE INC INC BLOOD/STO OL AEROBIC ISOL RADEX HIP 14923 [place] [facility] ALL 6 MEDICAL UNILATERA IMAGING L WITH ASS PELVIS 1 VIEW GROUND A0425 [facility]ULANCE AMBULANCE PER SERVICE SERVICE STATUTE MILE AMBULANCE A0428 [facility] SERVICE 6 AMBULANCE AMBULANCE BLS SERVICE SERVICE NONEMERGE NCY TRANSPORT RADIOLOGI 29866 [place] ZACH C 6 MEDICAL LATRELL EXAMINATI IMAGING ON CHEST ASS SINGLE VIEW FRONTAL RADIOLOGI 40703 [place] [facility] 6 MEDICAL ANGELIKA EXAMINATI IMAGING ON CHEST ASS SINGLE VIEW FRONTAL REPLACEME [id number] OMARI OMARI NT LT HIP 6 [facility] JOINT INC INC CERAMIC POLY SYNTH OPEN ECG 34530 OMARI ROGER ROUTINE 6 [facility] W/LEAST P 12 LDS I&R ONLY AMB A0427 [facility] SERVICE 6 AMBULANCE AMBULANCE ALS SERVICE SERVICE EMERGENCY TRANSPORT LEVEL 1 GROUND A0425 [facility] MILEAGE 6 AMBULANCE AMBULANCE PER SERVICE SERVICE STATUTE MILE RADEX HIP 46740 [facility] MEDICAL ANGELIKA UNILATERA IMAGING L WITH ASS PELVIS 2-3 VIEWS ANESTHESI 90480 [facility] OPEN 6 ANESTH RAMO PROCEDURE OF THE S UPPER BLUE 2/3 FEMUR NOS RADIOLOGI 62681 [facility] C 6 MEDICAL ANGELIKA EXAMINATI IMAGING ON FEMUR ASS MINIMUM 2 VIEWS OPTX FEM 59117 [facility] PETTEY FX PROX 6 PHYSICIAN [place] NCK S GROUP INT FIXJ/PROS TC RPLCMT RADIOLOGI 16673 [facility] ALL C 6 MEDICAL EXAMINATI IMAGING ON CHEST ASS SINGLE VIEW FRONTAL ANES 69172 [facility] LOWER 6 ANESTH SHE INTESTINE OF THE BLUE ENDOSCOPY DISTAL DUODENUM INJECTION J1100 ISMAEL GUEVARA JR 6 [place] DWI DEXAMETHO SONE SODIUM PH[address] [place] [address] [facility] ALL ABDOMEN & 6 MEDICAL PELVIS IMAGING W/O ASS CONTRAST MATERIAL URNLS DIP 60227 ISMAEL GUEVARA JR 6 [place] DWI STICK/TAB LET RGNT NON-AUTO W/O MICRSCP INJECTION J1030 ISMAEL GUEVARA JR 6 [place] DWI METHYLPRE DNISOLONE ACETATE 40 MG RADIOLOGI 39878 [facility] C EXAM 6 MEDICAL ANGELIKA CHEST 2 IMAGING VIEWS ASS FRONTAL&L ATERAL BASIC 49193 OMARI SALCIDO METABOLIC 6 [facility] PANEL INC INC CALCIUM TOTAL COLLECTIO 05971 OMARI SALCIDO N VENOUS 6 [facility] BLOOD INC INC VENIPUNCT URE BLOOD 58294 OMARI SALCIDO COUNT 6 [facility] COMPLETE INC INC AUTO&AUTO DIFRNTL WBC BLOOD 21955 COMBINED COMBINED COUNT 5 PHYSICIAN PHYSICIAN COMPLETE S LA S LA AUTO&AUTO DIFRNTL WBC CYANOCOBA 13916 COMBINED COMBINED JEWEL 5 PHYSICIAN PHYSICIAN VITAMIN S LA S LA B-12 BASIC 27535 COMBINED COMBINED METABOLIC 5 PHYSICIAN PHYSICIAN PANEL S LA S LA CALCIUM TOTAL INFLUENZA Q2038 ISMAEL GUEVARA JR VACC 5 [place] DWI SPLIT VIRUS 3 YRS & > IM FLUZONE ADMINISTR G0008 ISMAEL GUEVARA JR ATION OF 5 [place] DWI INFLUENZA VIRUS VACCINE URNLS DIP 85571 ISMAEL GUEVARA JR 5 [place] DWI STICK/TAB LET RGNT NON-AUTO W/O MICRSCP RADEX HIP 09295 [facility] ALL 5 MEDICAL UNILATERA IMAGING L 1 VIEW ASS RADEX HIP 78853 O[facility]I SALCIDO 5 [facility] UNILATERA INC INC L COMPLETE MINIMUM 2 VIEWS COLLECTIO 89459 OMARI SALCIDO N VENOUS 5 [facility] BLOOD INC INC VENIPUNCT URE BLOOD 51896 OMARI SALCIDO COUNT 5 [facility] COMPLETE INC INC AUTO&AUTO DIFRNTL WBC BASIC 35061 O[facility]I SALCIDO METABOLIC 5 [facility] PANEL INC INC CALCIUM TOTAL GROUND A0425 NARINDER NARINDER MILEAGE 5 CO CO PER AMBULANCE AMBULANCE STATUTE TAXIN TAXIN MILE AMB A0427 NARINDER NARINDER SERVICE 5 CO CO ALS AMBULANCE AMBULANCE EMERGENCY TAXIN TAXIN TRANSPORT LEVEL 1 BASIC 81694 COMBINED COMBINED METABOLIC 5 PHYSICIAN PHYSICIAN PANEL S LA S LA CALCIUM TOTAL BLOOD 29341 COMBINED COMBINED COUNT 5 PHYSICIAN PHYSICIAN COMPLETE S LA S LA AUTO&AUTO DIFRNTL WBC COLLECTIO 84811 ISMAEL GUEVARA JR N VENOUS 5 [place] DWI BLOOD VENIPUNCT URE DUP-SCAN 00723 [facility] M[facility] ALL XTR VEINS 5 MEDICAL IMAGING UNILATERA ASS L/LIMITED STUDY OBSERVATI 25755 ISMAEL GUEVARA JR ON CARE 5 YOJANA DWI DISCHARGE MANAGEMEN T SBSQ 24229 ISMAEL GUEVARA JR OBSERVATI 5 [place]NA DWI ON CARE/[address] [place] [address] [place] ALL HEAD/BRAI 5 MEDICAL N W/O IMAGING CONTRAST ASS MATERIAL RADIOLOGI 79029 [place] [facility] ALL C EXAM 5 MEDICAL CHEST 2 IMAGING VIEWS ASS FRONTAL&L ATERAL INITIAL 81975 ISMAEL GUEVARA JR OBSERVATI 5 [place] DWI ON CARE/DAY 50 MINUTES URNLS DIP 88729 COMBINED COMBINED 5 PHYSICIAN PHYSICIAN STICK/TAB S LA S LA LET REAGENT AUTO MICROSCOP Y THERAPEUT 11041 OMARI SALCIDO IC 5 [facility] PROPHYLAC INC INC TIC/DX INJECTION SUBQ/IM INJECTION J1335 OMARI SALCIDO 5 [facility] ERTAPENEM INC INC SODIUM 500 MG INJECTION J1100 ISMAEL GUEVARA JR 5 [place] DWI DEXAMETHO SONE SODIUM PHOSPHATE 1 MG CULTURE 87392 O[facility]I SALCIDO BCT 5 [facility] ISOL&PRSM INC INC PTV ID ISOLATE EA URINE CULTURE 38170 O[facility]I SALCIDO BACTERIAL 5 [facility] INC INC QUANTTATI VE COLONY COUNT URINE URNLS DIP 09838 ISMAEL GUEVARA JR 5 [place] DWI STICK/TAB LET RGNT NON-AUTO W/O MICRSCP SUSCEPTIB 86996 OMARI SALCIDO LTY STDY 5 [facility] ANTIMICRB INC INC IAL MICRO/AGA R DILUTJ BLOOD 55088 O[facility] SALCIDO COUNT 5 [facility] HEMATOCRI INC INC T BASIC 80897 OMARI SALCIDO METABOLIC 5 [facility] PANEL INC INC CALCIUM TOTAL IADNA-DNA 74291 OMARI SALCIDO /RNA GI 5 [facility] PTHGN INC INC MULTIPLEX PROBE TQ 11-01 [place] [address] [facility] ABDOMEN & 5 MEDICAL LATRELL PELVIS IMAGING W/O ASS CONTRAST MATERIAL COLLECTIO 86639 OMARI SALCIDO N VENOUS 5 [facility] [place] [address] OMARI SALCIDO UREA 5 [facility] NITROGEN INC INC QUANTITAT RIGO CREATININ 75857 O[facility]I SALCIDO E BLOOD 5 [facility] INC INC CULTURE 33685 [facility] SAL[facility] BACTERIAL 5 [facility] INC INC QUANTTATI VE COLONY COUNT URINE ANES 56260 [facility] UPPER GI 5 [facility] ENDOSCOPY ANESTHESI PROXIMAL A TO DUODENUM EGD 73102 TENRIISM TENRIISM TRANSORAL 5 PHYS SURG PHYS SURG BIOPSY CTR CTR SINGLE/MU LTIPLE SPECIAL 01354 CHIPPS MANUELA STAIN 5 EMMA & ORTEGA GROUP 1 DUBILIER MICROOR[place] NISMS I&[place] [address] CHIPPS MANUELA SURG 5 EMMA & ORTEGA PATHOLOGY DUBILIER GROSS&SAJAN ROSCOPIC EXAM OPHTH 01976 [facility] 5 EYE ORTEGA XM&EVAL INSTITUTE COMPRHNSV ESTAB PT 1/> DETERMINA 74561 [place] [facility] TION 5 EYE [facility] REFRACTIV INSTITUTE E STATE FUNDUS 82881 [place] [facility] PHOTOGRAP 5 EYE ORTEGA HY INSTITUTE W/INTERPR ETATION & REPORT CULTURE 56748 OMARI SALCIDO BACTERIAL 5 [facility] INC INC QUANTTATI VE COLONY COUNT URINE CULTURE 36392 OMARI SALCIDO BCT 5 [facility] ISOL&PRSM INC INC PTV ID ISOLATE EA URINE URNLS DIP 96275 ISMAEL GUEVARA JR 5 [place] DWI STICK/TAB LET RGNT NON-AUTO W/O MICRSCP SUSCEPTIB 82086 OMARI SALCIDO LTY STDY 5 [facility] ANTIMICRB INC INC IAL MICRO/AGA R DILUTJ THERAPEUT 94944 ISMAEL GUEVARA JR IC 5 [place] DWI PROPHYLAC TIC/DX INJECTION SUBQ/IM INJECTION J1040 ISMAEL GUEVARA JR 5 [place] DWI METHYLPRE DNISOLONE ACETATE 80 MG RADIOLOGI 04478 [place] [facility] C 5 MEDICAL LATRELL EXAMINATI IMAGING ON CHEST ASS SINGLE VIEW FRONTAL THER 11795 O[facility]IDO PROPH/DX 5 [facility] NJX IV INC INC PUSH SINGLE/1S T SBST/DRUG INJECTION J2405 [facility] ONDANSETR INC INC ON HCL PER 1 MG CULTURE 32197 [facility] BACTERIAL 5 [facility] BLOOD INC INC AEROBIC W/ID ISOLATES IAADI 94891 [facility] INFLUENZA 5 [facility] B VIRUS INC INC IAADI 19187 [facility] INFFLUENZ 5 [facility] A A VIRUS INC INC BLOOD 15318 [facility] COUNT 5 [facility] COMPLETE INC INC AUTO&AUTO DIFRNTL WBC COMPREHEN 88524 [facility] SIVE 5 [facility] METABOLIC INC INC PANEL URNLS DIP 12249 [facility] STICK/TAB INC INC LET REAGENT AUTO MICROSCOP Y URNLS DIP 08264 ISMAEL GUEVARA JR 5 [place] DWI STICK/TAB LET RGNT NON-AUTO W/O MICRSCP CULTURE 65005 OMARI SALCIDO BACTERIAL 5 [facility] INC INC QUANTTATI VE COLONY COUNT URINE INJECTION J1100 ISMAEL GUEVARA 4 Y[place] YOJANA DEXAMETHO SONE SODIUM PHOSPHATE 1 MG THERAPEUT 41654 ISMAEL GUEVARA JR IC 4 [place] DWI PROPHYLAC TIC/DX INJECTION SUBQ/IM THERAPEUT 01178 ISMAEL GUEVARA JR IC 4 [place] DWI PROPHYLAC TIC/DX INJECTION SUBQ/IM INJECTION J1030 ISMAEL GUEVARA JR 4 [place] DWI METHYLPRE DNISOLONE ACETATE 40 MG ECHO 56143 OMARI SALCIDO TTHRC R-T 4 [facility] 2D INC INC W/WOM-MOD E COMPL SPEC&COLR D THERAPEUT 96452 ISMAEL GUEVARA JR IC 4 [place] DWI PROPHYLAC TIC/DX INJECTION SUBQ/IM INJECTION J1100 ISMAEL GUEVARA JR 4 [place] DWI DEXAMETHO SONE SODIUM PHOSPHATE 1 MG URNLS DIP 57709 ISMAEL GUEVARA JR 4 [place] DWI STICK/TAB LET RGNT NON-AUTO W/O MICRSCP MYOCARDIA 71610 OMARI [place] SPECT 4 [facility] MULTIPLE INC INC STUDIES TECHNETIU A9500 OMARI SALCIDO M TC-99M 4 [facility] SESTAMIBI INC INC DX PER STUDY DOSE CV STRS 52597 OMARI GUEVARA JR TST 4 [facility] XERS&/OR HOSPITAL RX CONT P ECG I&R ONLY CV STRS 21822 OMARI SALCIDO TST 4 [facility] XERS&/OR INC INC RX CONT ECG TRCG ONLY INJECTION J2785 OMARI SALCIDO 4 [facility] REGADENOS INC INC ON 0.1 MG ECG 59455 OMARI GUEVARA JR ROUTINE 4 [facility] W/LEAST P 12 LDS I&R ONLY RADIOLOGI 11227 LORAINE [place] 4 MEDICAL LATRELL EXAMINATI IMAGING ON CHEST ASS SINGLE VIEW FRONTAL ECG 21211 OMARI SALCIDO ROUTINE 4 [facility] ECG INC INC W/LEAST 12 LDS TRCG ONLY W/O I&R COMPREHEN 82965 OMARI SALCIDO SIVE 4 [facility] METABOLIC INC INC PANEL BLOOD 88755 O[facility]I SALCIDO COUNT 4 [facility] COMPLETE INC INC AUTO&AUTO DIFRNTL WBC CREATINE 10308 OMARI SALCIDO KINASE MB 4 [facility] [place] [address] OMAR[facility] THYROID 4 [facility] STIMULATI [place] [address] OMAR[facility] SALCIDO TROPONIN 4 [facility] QUANTITAT INC INC RIGO CREATINE 97575 O[facility] SALCIDO KINASE 4 [facility] TOTAL INC INC INJECTION J1040 ISMAEL GUEVARA JR 4 [place] DWI METHYLPRE DNISOLONE ACETATE 80 MG INFLUENZA Q2038 ISMAEL GUEVARA JR VACC 4 YOJAAN DWI SPLIT VIRUS 3 YRS & > IM FLUZONE ARTHROCEN 81337 ISMAEL HAASIS 4 [place]NA YOJANA ASPIR&/IN J INTERM JT/BURS W/O [place] RADEX [address] [facility] SHOULDER 4 JESSE MOLINA COMPLETE PARTHA PARTHA MINIMUM [address] IN[address] 4 JESSE MOLINA ONDANSETR PARTHA PARTHA ON HCL PER [address] IC 4 JESSE MOLINA PROPHYLAC PARTHA PARTHA TIC/DX INJECTION SUBQ/IM INJECTION J11[address] [facility] 4 JESSE MOLINA HYDROMORP PARTHA PARTHA ASAEL UP TO 4 MG BASIC 71942 COMBINED COMBINED METABOLIC 4 PHYSICIAN PHYSICIAN PANEL S LA S LA CALCIUM TOTAL COLLECTIO 17496 ISMAEL GUEVARA JR N VENOUS 4 [place] DWI BLOOD VENIPUNCT URE COLLECTIO 51038 ISMAEL GUEVARA JR N VENOUS 4 [place] DWI BLOOD VENIPUNCT URE CREATINE 04276 OMARI SALCIDO KINASE 4 [facility] TOTAL INC INC BLOOD 99786 OMARI SALCIDO COUNT 4 [facility] COMPLETE INC INC AUTO&AUTO DIFRNTL WBC URNLS DIP 87365 ISMAEL GUEVARA JR 4 [place] DW[place] STICK/TAB LET RGNT NON-AUTO W/O MICRSCP BASIC 70135 OMARI SALCIDO METABOLIC 4 [facility] PANEL INC INC CALCIUM TOTAL URNLS DIP 88520 ISMAEL GUEVARA JR 4 [place] DWI STICK/TAB LET RGNT NON-AUTO W/O MICRSCP RADEX 00279 OMARI SALCIDO SPINE 4 [facility] LUMBOSACR INC INC AL MINIMUM 4 VIEWS URNLS DIP 22711 ISMAEL GUEVARA JR 4 [place]OJANA DWI STICK/TAB LET RGNT NON-AUTO W/O MICRSCP THERAPEUT 39156 ISMAEL GUEVARA JR IC 4 [place] DWI PROPHYLAC TIC/DX INJECTION SUBQ/IM CULTURE 97356 OMARI SALCIDO BACTERIAL 4 [facility] INC INC QUANTTATI VE COLONY COUNT URINE INJECTION J1040 ISMAEL GUEVARA JR 4 YOJANA DWI METHYLPRE DNISOLONE ACETATE 80 MG BASIC 86625 COMBINED COMBINED METABOLIC 4 PHYSICIAN PHYSICIAN PANEL S LA S LA CALCIUM TOTAL BLOOD 29556 COMBINED COMBINED COUNT 4 PHYSICIAN PHYSICIAN COMPLETE S LA S LA AUTO&AUTO DIFRNTL WBC COLLECTIO 51224 ISMAEL GUEVARA JR N VENOUS 4 [place] DWI BLOOD VENIPUNCT URE OBSERVATI 23187 ISMAEL GUEVARA JR ON CARE 4 [place] DWI DISCHARGE MANAGEMEN T SBSQ 80187 ISMAEL GUEVARA JR OBSERVATI 4 [place] DWI ON CARE/DAY 25 MINUTES ECG 00773 OMARI GUEVARA JR ROUTINE 4 [facility] ECG HOSPITAL W/LEAST P 12 LDS I&R ONLY ECG 53468 [facility] ROUTINE 4 [facility] ECG EMERGENCY W/LEAST PHYS 12 LDS I&R ONLY AMB A0427 [facility] SERVICE 4 AMBULANCE AMBULANCE ALS SERVICE SERVICE EMERGENCY TRANSPORT LEVEL 1 ECHO 43335 MERRY MARTINEZ [facility] R-T 4 MEDICAL EMELI 2D SERV W/WOM-MOD FOUNDATIO E COMPL SPEC&COLR D GROUND A0425 MICHEL PEARSON MILEAGE 4 AMBULANCE AMBULANCE PER SERVICE SERVICE STATUTE MILE INITIAL 01598 ISMAEL GUEVARA JR OBSERVATI 4 [place] DWI ON CARE/DAY 50 MINUTES URNLS DIP 47130 ISMAEL GUEVARA JR 4 [place] DWI STICK/TAB LET RGNT NON-AUTO W/O MICRSCP PULMONARY 64403 LORAINE HIRSCHUTCHER 4 [facility] VENTILATI IMAGING ON & ASS PERFUSION IMAGING TECHNETIU A9540 OMARI Hernandez TC-99M 4 [facility] MAA DX INC INC STDY DOSE UP TO 10 MCI TECHNETIU A9567 OMARI Hernandez TC-99M 4 [facility] PENTETATE INC INC DX AEROSOL TO 75 MCI ECG 61193 OMARI SALCIDO ROUTINE 4 [facility] ECG INC INC W/LEAST 12 LDS TRCG ONLY W/O I&R RADEX 96099 LORAINE HIRSCHUTCHER FOOT 4 [facility] COMPLETE IMAGING MINIMUM 3 ASS VIEWS COLLECTIO 57495 OMARI Lee VENOUS 4 [facility] [place] [address] OMARI SALCIDO TROPONIN 4 [facility] QUANTITAT INC INC RIGO CREATINE 87104 OMARI SALCIDO KINASE MB 4 [facility] FRACTION INC INC ONLY CREATINE 75320 OMARI SALCIDO KINASE 4 [facility] TOTAL INC INC FIBRIN 89321 OMARI SALCIDO DGRADJ 4 [facility] PRODUCTS INC INC D-DIMER QUAL/SEMI NAYE BASIC 68861 OMARI SALCIDO METABOLIC 4 [facility] PANEL INC INC CALCIUM TOTAL ECG 53103 OMARI GUEVARA JR ROUTINE 4 [facility] ECG HOSPITAL W/LEAST P 12 LDS I&R ONLY RADIOLOGI 69932 LORAINE SERRANO C EXAM 4 [facility] CHEST 2 IMAGING VIEWS ASS FRONTAL&L ATERAL RADIOLOGI 83411 LORAINE SERRANO C EXAM 4 [facility] CHEST 2 IMAGING VIEWS ASS FRONTAL&[place] [address] OMARIBG SALCIDO LIPASE 4 [facility] INC INC BLOOD 86200 OMARI SALCIDO COUNT 4 [facility] COMPLETE INC INC AUTO&AUTO DIFRNTL WBC URNLS DIP 81930 OMARI OMARI 4 [facility] STICK/TAB INC INC LET REAGENT AUTO MICROSCOP Y COMPREHEN 17857 OMARI SALCIDO SIVE 4 [facility] METABOLIC INC INC PANEL URNLS DIP 04045 OMARI SALCIDO 4 [facility] STICK/TAB INC INC LET REAGENT AUTO MICROSCOP Y IAADI 41802 OMARI SALCIDO INFFLUENZ 4 [facility] A A VIRUS INC INC IAADI 28379 OMARI SALCIDO INFLUENZA 4 [facility] B VIRUS INC INC STANDARD K0001 MICHELLE MICHELLE WHEELCHAI 4 HOME HOME R MEDICAL MEDICAL EQUIPME EQUIPME STANDARD K0001 MICHELLE MICHELLE WHEELCHAI 4 HOME HOME R MEDICAL MEDICAL EQUIPME EQUIPME CULTURE 46676 OMARI SALCIDO BACTERIAL 4 [facility] INC INC QUANTTATI VE COLONY COUNT URINE STANDARD K0001 MICHELLE MICHELLE WHEELCHAI 3 HOME HOME R MEDICAL MEDICAL EQUIPME EQUIPME BLOOD 42000 OMARI SALCIDO COUNT 3 [facility] COMPLETE INC INC AUTO&AUTO DIFRNTL WBC SEDIMENTA 64939 OMARI SALCIDO TION RATE 3 [facility] RBC INC INC NON-AUTOM ATED STANDARD K0001 MICHELLE MICHELLE WHEELCHAI 3 HOME HOME R MEDICAL MEDICAL EQUIPME EQUIPME STANDARD K0001 MICHELLE MICHELLE HERNANDEZCHAI 3 HOME HOME R MEDICAL MEDICAL EQUIPME EQUIPME STANDARD K0001 MICHELLE MICHELLE WHEELCHAI 3 HOME HOME R MEDICAL MEDICAL EQUIPME EQUIPME THERAPEUT 13716 ISMAEL GUEVARA JR IC 3 YOJANA DWI PROPHYLAC TIC/DX INJECTION SUBQ/IM INJECTION J1100 ISMAEL GUEVARA JR 3 [place] DWI DEXAMETHO SONE SODIUM PHOSPHATE 1 MG CULTURE 06795 OMARI SALCIDO BACTERIAL 3 [facility] INC INC QUANTTATI VE COLONY COUNT URINE URNLS DIP 86143 ISMAEL GUEVARA JR 3 [place] DWI STICK/TAB LET RGNT NON-AUTO W/O MICRSCP STANDARD K0001 MICHELLE MARTINEZ WHEELCHAI 3 HOME HOME R MEDICAL MEDICAL EQUIPME EQUIPME DETERMINA 41648 [place] [facility] [address] [place] [facility]ICAL 3 EYE ORTEGA XM&EVAL INSTITUTE COMPRE NEW PT 1/ VST STANDARD K0001 MICHELLE HERNANDEZCHAI 3 HOME HOME R MEDICAL MEDICAL EQUIPME EQUIPME RADEX 09100 [facility] SPINE 3 [place] CERVICAL ORTHOPAED 2 OR 3 [facility] VIEWS RADEX 88977 [facility] SPINE 3 [place] THORACIC ORTHOPAED 2 VIEWS [facility] COMPREHEN 02001 [facility] SIVE 3 [facility] METABOLIC LABORATO LABORATO PANEL LACTATE 65663 [facility] DEHYDROGE 3 CLINIC CLINIC NASE LDH LABORATO LABORATO BLOOD 00230 [facility] COUNT 3 CLINIC CLINIC COMPLETE LABORATO LABORATO AUTO&AUTO DIFRNTL WBC COLLECTIO 70912 [facility] N VENOUS 3 CLINIC CLINIC BLOOD LABORAT[place] [address] [facility] BLOOD/URI 3 CLINIC CLINIC C ACID LABORATO LABORATO STANDARD K0001 MICHELLE HERNANDEZCHAI 3 HOME HOME R MEDICAL MEDICAL EQUIPME EQUIPME INJECTION J1040 TYESHA ARAMBULA 3 DON DON METHYLPRE DNISOLONE ACETATE 80 MG STANDARD K0001 MICHELLE HERNANDEZCHAI 3 HOME HOME R MEDICAL MEDICAL EQUIPME EQUIPME OPHTH 27241 [place] [facility] 3 MEDICAL JR ORTEGA XM&EVAL SERV COMPRHNSV FOUNDATIO ESTAB PT 1/> STANDARD K0001 MICHELLE HERNANDEZCHAI 3 HOME HOME R MEDICAL MEDICAL [facility] 71428 [facility] 3 EMERGENCY RAE IGN DAY SERVICES MANAGEMEN T 30 MIN/< ANESTHESI 65973 LORAINE HUNTER A PERQ 3 ANESTHESI [place] IMAGE A GROUP GUIDED PS SP[place] IC SBSQ 23630 [facility] 3 EMERGENCY RAE IGN CARE/DAY SERVICES 25 MINUTES INITIAL 93813 [facility] 3 N CARE/DAY CARDIOLOG 30 Y MINUTES MRI 11689 [facility] [place] [facility] MAT SPINAL 3 RADIOLOGY CANAL THORACIC W/O CONTRAST MATRL MRI 02043 [facility] [place] [facility] MAT SPINAL 3 RADIOLOGY CANAL LUMBAR W/O CONTRAST MATERIAL RADIOLOGI 48052 [facility] [place] [facility] MAT C 3 RADIOLOGY EXAMINATI ON CHEST SINGLE VIEW FRONTAL MRI 59668 [facility] SP[facility] 3 MED[facility] CANAL IMAGING LUMBAR ASS W/O CONTRAST MATERIAL 3D 87979 [place] [facility] 3 MEDICAL [facility] IMAGING W/INTERP& ASS POSTPROC DIFF WORK STATION CT LUMBAR 87942 OMARI SALCIDO SPINE 3 [facility] W/O INC INC CONTRAST MATERIAL INITIAL 93482 [facility] 3 EMERGENCY JANET CARE/DAY SERVICES 70 MINUTES 3D 60677 OMARI SALCIDO RENDERING 3 [facility] W/INTERP INC INC & [place] [address] OMARI SALCIDO CERVICAL 3 [facility] SPINE W/O INC INC CONTRAST MATERIAL RADEX 04784 OMARI JESSICA ORTEGA SPINE 3 [facility] LUMBOSACR INC AL MINIMUM 4 VIEWS RADIOLOGI 19729 OMARI SALCIDO C 3 [facility] EXAMINATI INC INC ON PELVIS 1/2 VIEWS AMBULANCE A0429 [facility] SERVICE 3 AMBULANCE AMBULANCE BLS SERVICE SERVICE EMERGENCY TRANSPORT THERAPEUT 69415 OMARI SALCIDO IC 3 [facility] PROPHYLAC INC INC TIC/DX INJECTION SUBQ/IM GROUND A0425 [facility] MILEAGE 3 AMBULANCE AMBULANCE PER SERVICE SERVICE STATUTE MILE 3D 25812 OMARI SALCIDO RENDERING 3 [facility] INC INC W/INTERP& POSTPROC DIFF WORK STATION RADIOLOGI 70948 OMARI SALCIDO C 3 [facility] EXAMINATI INC [place] [address] OMARI SALCIDO HEAD/BRAI 3 [facility] N W/O INC INC CONTRAST MATERIAL INJECTION J1040 ARAMBULAZak ARAMBULA 3 DON DON METHYLPRE DNISOLONE ACETATE 80 MG STANDARD K0001 MICHELLE MAXWELL 3 HOME HOME R MEDICAL MEDICAL EQUIPME EQUIPME COMPREHEN 83123 OMARI SALCIDO SIVE 3 [facility] METABOLIC INC INC PANEL URNLS DIP 68164 OMARI SALCIDO 3 [facility] STICK/TAB INC INC LET REAGENT AUTO MICROSCOP Y BLOOD 92019 OMARIBG SALCIDO COUNT 3 [facility] COMPLETE INC INC AUTO&AUTO DIFRNTL WBC COLLECTIO 95790 MOARI SALCIDO N VENOUS 3 [facility] BLOOD INC INC VENIPUNCT URE RADIOLOGI 22047 TYESHA Alcala 3 DON DON EXAMINATI ON KNEE 1/2 VIEWS STANDARD K0001 MICHELLE MAXWELL 3 HOME HOME R MEDICAL MEDICAL EQUIPME EQUIPME CULTURE 88192 OMARI OMARI BACTERIAL 3 [facility] INC INC QUANTTATI VE COLONY COUNT URINE CULTURE 41548 OMARI SALCIDO BCT 3 [facility] ISOL&PRSM INC INC PTV ID ISOLATE EA URINE SUSCEPTIB 59093 OMARI SALCIDO LTY STDY 3 [facility] ANTIMICRB INC INC IAL MICRO/AGA R DILUTJ URNLS DIP 76751 TYESHA ARAMBULA 3 DON DON STICK/TAB LET RGNT NON-AUTO W/O MICRSCP OPHTH 06674 [facility] 3 MEDICAL JR ORTEGA XM&EVAL SERV COMPRHNSV FOUNDATIO ESTAB PT 1/> CUL BACT 13722 OMARI OMARI XCPT 3 [facility] URINE INC INC BLOOD/[place] [address] OMARI SALCIDO INFUSION 3 [facility] THERAPY/P INC INC ROPHYLAXI S /DX 1ST TO 1 [place] [address] OMARI OMARI INFUSION 3 [facility] THERAPY/P INC INC ROPHYLAXI S /DX 1ST TO [place] [address] OMARI SALCIDO INFUSION 3 [facility] THERAPY/P INC INC ROPHYLAXI S /DX 1ST TO 1 HR DRUG 00570 OMARI SALCIDO SCREEN 3 [facility] QUANTITAT INC INC RIGO GENTAMICI N DRUG 28912 OMARI SALCIDO SCREEN 3 [facility] QUANTITAT INC INC RIGO GENTAMICI N COLLECTIO 02214 OMARI SALCIDO N VENOUS 3 [facility] BLOOD INC INC VENIPUNCT URE DRUG 02296 OMARI SALCIDO SCREEN 3 [facility] QUANTITAT INC INC RIGO GENTAMICI N COLLECTIO 66715 OMARI SALCIDO N VENOUS 3 [facility] [place] [address] OMARI OMARI INFUSION 3 [facility] THERAPY/P INC INC ROPHYLAXI S /DX 1ST TO 1 HR COLLECTIO 16908 OMARI SALCIDO N VENOUS 3 [facility] BLOOD INC INC VENIPUNCT URE DRUG 25765 OMARI SALCIDO SCREEN 3 [facility] QUANTITAT INC INC RIGO GENTAMICI N CREATININ 28425 OMARI SALCIDO E BLOOD 3 [facility] [place] [address] OMARI SALCIDO UREA 3 [facility] [place] [address] OMARI SALCIDO INFUSION 3 [facility] THERAPY/P INC INC ROPHYLAXI S /DX 1ST TO 1 HR BASIC 19466 OMARI SALCIDO METABOLIC 3 [facility] PANEL INC INC CALCIUM TOTAL CUL BACT 94716 OMARI SALCIDO AEROBIC 3 [facility] ADDL INC INC METHS DEFINITIV E EA ISOL CUL BACT 46044 OMARI SALCIDO XCPT 3 [facility] URINE INC INC BLOOD/STO OL AEROBIC ISOL INJECTION J0690 TYESHA ARAMBULA 3 DON DON CEFAZOLIN SODIUM 500 MG SUSCEPTIB 23168 OMARI SALCIDO LTY STDY 3 [facility] HOS[facility] [...] SONE ACETATE & PHOSPHATE 3 MG REMOVAL 46971 TYESHA ARAMBULA IMPACTED 2 DON DON CERUMEN INSTRUMEN TATION UNILAT ECG 08795 TYESHA ARAMBULA ROUTINE 2 DON DON ECG W/LEAST 12 LDS W/I&R ECG 56496 TYESHA ARAMBULA ROUTINE 2 DON DON ECG W/LEAST 12 LDS W/I&R RADEX ABD 16113 TYESHA ARAMBULA COMPL 2 DON DON AQT ABD W/S/E/D VIEWS 1 VIEW CH INJECTION J1040 TYESHA ARAMBULA 2 DON DON METHYLPRE DNISOLONE ACETATE 80 MG URNLS DIP 96750 TYESHA ARAMBULA 2 DON DON STICK/TAB LET RGNT NON-AUTO W/O MICRSCP COMPREHEN 93870 OMARI OMARI SIVE 2 [facility] METABOLIC INC INC PANEL URNLS DIP 21788 OMARI SALCIDO 2 [facility] STICK/TAB INC INC LET REAGENT AUTO MICROSCOP Y ECG 40827 OMARIBG SALCIDO ROUTINE 2 [facility] ECG INC INC W/LEAST 12 LDS TRCG ONLY W/O I&R BLOOD 90641 OMARI SALCIDO COUNT 2 [facility] COMPLETE INC INC AUTO&AUTO DIFRNTL WBC CREATINE 65442 OMARI OMARI KINASE MB 2 [facility] FRACTION INC INC ONLY CREATINE 46794 OMARI OMARI KINASE 2 [facility] TOTAL INC INC NATRIURET 17249 OMARI SALCIDO IC 2 [facility] [place] [address] OMARI SALCIDO TROPONIN 2 [facility] QUANTITAT INC INC RIGO RADIOLOGI 90127 OMARI SALCIDO C 2 [facility] EXAMINATI INC INC ON CHEST SINGLE VIEW FRONTAL ECG 70034 EMILY STARK ROUTINE 2 EMERGENCY SAAJN ECG SERVICES W/LEAST 12 LDS I&R ONLY INJECTION J2405 OMARI SALCIDO 2 [facility] ONDANSETR INC INC ON HCL PER 1 MG THER 31324 OMARI SALCIDO PROPH/DX 2 [facility] NJX IV INC INC PUSH SINGLE/1S T SBST/DRUG COLLECTIO 63356 OMARI SALCIDO N VENOUS 2 [facility] BLOOD INC INC VENIPUNCT URE COMPREHEN 07991 OMARI SALCIDO SIVE 2 [facility] METABOLIC INC INC PANEL INJECTION J3420 TYESHA ARZATES VIT B-12 2 DON DON CYANOCOBA JEWEL TO 1000 MCG INJECTION J1040 TYESHA JAMESONHENS 2 DON DON METHYLPRE DNISOLONE ACETATE 80 MG TYMPANOME 54337 TYESHA ARZATES TRY 2 DON DON COMPREHEN 85930 OMARI CALLEON SIVE 2 [facility] METABOLIC INC INC PANEL LIPID 29604 OMARI SALCIDO PANEL 2 [facility] INC INC COLLECTIO 48247 OMARI SALCIDO N VENOUS 2 [facility] BLOOD INC INC VENIPUNCT URE BLOOD 51044 OMARI SALCIDO COUNT 2 [facility] COMPLETE INC INC AUTO&[place] [address] OMARI SALCIDO THYROID 2 [facility] STIMULATI INC INC NG HORMONE TSH OPHTH 00302 [place] [facility] 2 MEDICAL ORTEGA XM&EVAL SERV COMPRHNSV FOUNDATIO ESTAB PT 1/> COMPUTERI 90281 [place] [facility] ARREOL[place] 2 MEDICAL ORTEGA OPHTHAL[place] [address] OMARI SALCIDO TRANSVAGI 2 [facility] NAL INC INC US PELVIC 57602 LORAINE HIRSCHUTCHER 2 MEDICAL [facility]RE[facility] NONOBSTET IMAGING ZOEY ASS REAL-TIME IMAGE COMPLETE URNLS DIP 49367 ARAMBULAKRISS ARAMBULA 2 DON DON STICK/TAB LET RGNT NON-AUTO W/O MICRSCP INJECTION J1040 ARAMBULA ARAMBULA 2 DON DON METHYLPRE DNISOLONE ACETATE 80 MG INJECTION J3420 TYESHA ARAMBULA VIT B-12 2 DON DON CYANOCOBA JEWEL TO 1000 MCG URNLS DIP 88191 ARAMBULA ARAMBULA 2 DON DON STICK/TAB LET RGNT NON-AUTO W/O MICRSCP INJECTION J3420 ARAMBULA ARAMBULA VIT B-12 1 DON DON CYANOCOBA JEWEL TO 1000 MCG INFLUENZA Q2037 ARAMBULA ARAMBULA VACC 1 DON DON SPLIT VIRUS 3 YRS & > IM FLUVIRIN ADMINISTR G0008 TYESHA ARAMBULA ATION OF 1 DON DON INFLUENZA VIRUS VACCINE URNLS DIP 04461 ARAMBULAKRISS ARAMBULA 1 DON DON STICK/TAB LET RGNT NON-AUTO W/O MICRSCP INJECTION J3420 ARAMBULA ARAMBULA VIT B-12 1 DON DON CYANOCOBA JEWEL TO 1000 MCG INJECTION J1040 ARAMBULA ARAMBULA 1 DON DON METHYLPRE DNISOLONE ACETATE 80 MG URNLS DIP 35752 ARAMBULA ARAMBULA 1 DON DON STICK/TAB LET RGNT NON-AUTO W/O MICRSCP URNLS DIP 83107 ARAMBULAKRISS ARAMBULA 1 DON DON STICK/TAB LET RGNT NON-AUTO W/O MICRSCP CULTURE 54608 OMARI SALCIDO BACTERIAL 1 [facility] INC INC QUANTTATI VE COLONY COUNT URINE URNLS DIP 82930 TYESHA ARAMBULA 1 DON DON STICK/TAB LET RGNT NON-AUTO W/O MICRSCP URNLS DIP 52516 [place] [facility] STICK/TAB CLINIC LET RGNT PSC NON-AUTO W/O MICRSCP URNLS DIP 30249 TYESHA ARAMBULA 1 DON DON STICK/TAB LET RGNT NON-AUTO W/O MICRSCP INJ J0702 TYESHA ARAMBULA BETAMETHA 1 DON DON SONE ACETATE & PHOSPHATE 3 MG INJECTION J3420 TYESHA ARAMBULA VIT B-12 1 DON DON CYANOCOBA JEWEL TO 1000 MCG 3D 86925 [place] [facility] 1 [facility] IMAGING W/INTERP& ASS POSTPROC DIFF WORK STATION CT THORAX 00488 OMARI SALCIDO 1 [facility] W/[place] [address] [place] ABDOMEN & 1 [facility] PELVIS IMAGING W/CONTRAS ASS T MATERIAL CT THORAX 47508 [place] [facility] W/O 1 [facility] [place] [address] [facility] BLOOD/URI 1 CLINIC CLINIC C ACID LABORATO LABORATO COMPREHEN 45066 [facility] SIVE 1 CLINIC CLINIC METABOLIC LABORATO LABORATO PANEL COLLECTIO 46448 [facility] N VENOUS 1 CLINIC CLINIC BLOOD LABORATO LABORATO VENIPUNCT URE BLOOD 49620 [facility] COUNT 1 CLINIC CLINIC COMPLETE LABORATO LABORATO AUTO&AUTO DIFRNTL WBC LACTATE 67752 [facility] DEHYDROGE 1 CLINIC CLINIC NASE LDH LABORATO LABORATO INJECTION J3420 TYESHA ARAMBULA VIT B-12 1 DON DON CYANOCOBA JEWEL TO 1000 MCG INJECTION J1040 TYESHA ARAMBULA 1 DON DON METHYLPRE DNISOLONE ACETATE 80 MG INJECTION J0690 TYESHA ARAMBULA 1 DON DON CEFAZOLIN SODIUM 500 MG URNLS DIP 94686 OMARI JEAN-[facility]APTISTE JR [address] [facility] LET RGNT P NON-AUTO W/O MICRSCP INJECTION J1040 TYESHA JAMESONHENS 1 DON DON METHYLPRE DNISOLONE ACETATE 80 MG COMPREHEN 44635 OMARI SALCIDO SIVE 1 [facility] METABOLIC INC INC PANEL LIPID 09552 OMARI SALCIDO PANEL 1 [facility] INC INC BLOOD 11103 OMARI SALCIDO COUNT 1 [facility] COMPLETE INC INC AUTO&[place] [address] OMARI SALCIDO THYROID 1 [facility] STIMULATI INC INC NG HORMONE TSH COLLECTIO 64044 OMARI SALCIDO N VENOUS 1 [facility] BLOOD INC INC VENIPUNCT URE INJECTION J1040 TYESHA JAMESONHENS 1 DON DON METHYLPRE DNISOLONE ACETATE 80 MG INJECTION J1040 ARAMBULA ARAMBULA 0 DON DON METHYLPRE DNISOLONE ACETATE 80 MG AMBULANCE A0429 [facility] SERVICE 0 AMBULANCE AMBULANCE BLS SERVICE SERVICE EMERGENCY TRANSPORT GROUND A0425 [facility] MILEAGE 0 AMBULANCE AMBULANCE PER SERVICE SERVICE STATUTE MILE SIMPLE 09203 OMARI SALCIDO RPR 0 [facility] SCALP/NEC INC INC K/AX/KIRSTIE T/TRUNK 7.6-12.5C [place] [address] OMARI SALCIDO CLOSTRIDI 0 [facility] UM INC INC DIFFICILE TOXIN URNLS DIP 21823 TYESHA JAMESONHENS 0 DON DON STICK/TAB LET RGNT NON-AUTO W/O MICRSCP OPHTH 24889 [facility] 0 MEDICAL ORTEGA XM&EVAL SERV COMPRHNSV FOUNDATIO ESTAB PT 1/> ADMINISTR G0008 TYESHA ARAMBULA ATION OF 0 DON DON INFLUENZA VIRUS VACCINE IIV3 43872 TYESHA ARZATES VACCINE 0 DON DON SPLIT VIRUS 0.5 ML DOSAGE IM USE INJECTION J1040 TYESHA JAMESONHENS 0 DON DON METHYLPRE DNISOLONE ACETATE 80 MG INJECTION J1040 TYESHA ARAMBULA 0 DON DON METHYLPRE DNISOLONE ACETATE 80 MG INJECTION J3420 TYESHA ARAMBULA VIT B-12 0 DON DON CYANOCOBA JEWEL TO 1000 MCG URNLS DIP 37392 TYESHA ARAMBULA 0 DON DON STICK/TAB LET RGNT NON-AUTO W/O MICRSCP URNLS DIP 69343 TYESHA ARAMBULA 0 DON DON STICK/TAB LET RGNT NON-AUTO W/O MICRSCP URNLS DIP 05209 CARITO ARAMBULAS, 0 DON R DON R STICK/TAB LET RGNT NON-AUTO W/O MICRSCP INJECTION J1040 TRINO ARAMBULAHENS, 0 DON R DON R METHYLPRE DNISOLONE ACETATE 80 MG THERAPEUT 90566 OMARI SALCIDO IC 0 [facility] PROPHYLAC INC INC TIC/DX INJECTION SUBQ/IM INJECTION J1040 ARAMBULA, ARAMBULA, 0 DON R DON R METHYLPRE DNISOLONE ACETATE 80 MG URNLS DIP 60767 CARITO ARAMBULAS, 0 DON R DON R STICK/TAB LET RGNT NON-AUTO W/O MICRSCP COMPREHEN 36608 [facility] SIVE 0 CLINIC CLINIC METABOLIC LABORATOR LABORATOR PANEL Y Y COLLECTIO 37734 [facility] N VENOUS 0 CLINIC CLINIC BLOOD LABORATOR LABORATOR VENIPUNCT Y Y URE BLOOD 12705 [facility] COUNT 0 CLINIC CLINIC COMPLETE LABORATOR LABORATOR AUTO&AUTO Y Y DIFRNTL WBC LACTATE 17760 [facility] DEHYDROGE 0 CLINIC CLINIC NASE [place] [address] [facility] BLOOD/URI 0 CLINIC CLINIC C ACID LABORATOR LABORATOR Y Y INJECTION J3420 TRINO ARAMBULAHENS, VIT B-12 0 DON R DON R CYANOCOBA JEWEL TO 1000 MCG RADIOLOGI 93219 Fredrick YLNNE EXAM 0 MEDICAL DEAN CHEST 2 IMAGING VIEWS ASSOCIATE FRONTAL&L S ATERAL THERAPEUT 49282 OMARI CALLEON IC 0 [facility] PROPHYLAC INC INC TIC/DX INJECTION SUBQ/IM INJECTION J1040 TYESHA ARAMBULA, 0 DON R DON R METHYLPRE DNISOL[place] [address] [address] [place] [address] LORAINE ZACH, HEAD/BRAI 0 MEDICAL DEAN N W/O & IMAGING W/CONTRAS ASSOCIATE T S MATERIAL CREATININ 75728 OMARI SALCIDO E BLOOD 0 [place] [address] OMARI SALCIDO UREA 0 [facility] NITROGEN INC INC QUANTITAT RIGO COLLECTIO 89371 OMARI SALCIDO N VENOUS 0 [facility] BLOOD INC INC VENIPUNCT URE 3D 95173 [facility], RENDERING 0 MEDICAL DEAN W/INTERP IMAGING & ASSOCIATE POSTPROCE S SS SUPERVISI ON RADEX HIP 60194 OMARI SALCIDO 0 [facility] [place] INC INC L COMPLETE MINIMUM 2 VIEWS RADIOLOGI 44125 OMARI SALCIDO C 0 [facility] EXAMINATI INC INC ON PELVIS 1/2 VIEWS URNLS DIP 92251 TYESHA ARAMBULA, 0 DON R DON R STICK/TAB LET RGNT NON-AUTO W/O MICRSCP BLOOD 99770 TYESHA ARAMBULA, OCCULT 0 DON R DON R PEROXIDAS E ACTV QUAL FECES 1 DETER INJ J0702 TYESHA ARAMUBLA, BETAMETHA 0 DON R DON R SONE ACETATE & PHOSPHATE 3 MG 3D 50667 [facility], RENDERING 9 MEDICAL DEAN IMAGING W/INTERP& ASSOCIATE POSTPROC S DIFF WORK STATION CT THORAX 03269 [facility], 9 MEDICAL DEAN W/CONTRAS IMAGING T ASSOCIATE MATERIAL S CREATININ 25475 OMARI SALCIDO E BLOOD 9 [place] [address] OMARI SALCIDO UREA 9 [facility] NITROGEN INC INC QUANTITAT RIGO COLLECTIO 80822 OMARI SALCIDO N VENOUS 9 [facility] BLOOD INC INC VENIPUNCT URE SBSQ 54392 TYESHA ARAMBULA, NURSING 9 DON R DON R FACILITY CARE/DAY E/M STABLE 10 MIN HOSPITAL [address] [facility] [place] 9 DON R DON R DAY MANAGEMEN T 30 MIN/< SBSQ 44593 [place] [address] DON R DON R CARE/DAY 25 MINUTES SBSQ 22146 [facility] 9 DON R DON R CARE/DAY 25 MINUTES SBSQ 38789 [facility] 9 DON R DON R CARE/DAY 25 MINUTES RADIOLOGI 68126 Fredrick LYNNE 9 MEDICAL DEAN EXAMINATI IMAGING ON CHEST ASSOCIATE SINGLE S VIEW FRONTAL SBSQ 97850 [place] [address] DON R DON R CARE/DAY 25 MINUTES SBSQ 99327 [facility] 9 DON R DON R CARE/DAY 25 MINUTES ECG 73237 OMRAI GUEVARA, ROUTINE 9 [facility] W/LEAST PROF SERV 12 LDS I&R ONLY SBSQ 14741 [facility] 9 DON R DON R CARE/DAY 25 MINUTES HIP 0074 OMARI SALCIDO BEARING 9 [facility] SURFACE INC INC METAL-ON- POLYETHYL AYUSH PARTIAL 8152 OMARI SALCIDO HIP 9 [facility] REPLACEME INC INC NT ANESTHESI 75051 [facility] Jacobo GAMINO OPEN 9 ANESTH JORGE [facility] [place] [address] PATHOLOGY PATHOLOGY SURG 9 & & PATHOLOGY CYTOLOGY CYTOLOGY LAB LAB GROSS&SAJAN ROSCOPIC EXAM DECALCIFI 40889 PATHOLOGY PATHOLOGY CATION 9 & & PROCEDURE CYTOLOGY CYTOLOGY LAB LAB RADEX HIP 81831 [place] Candie [facility] IMAGING L 1 VIEW ASSOCIATE S RADEX HIP 08781 [facility] Candie [facility] IMAGING L ASSOCIATE COMPLETE S MINIMUM 2 VIEWS GROUND A0425 [facility] 9 AMBULANCE AMBULANCE PER SERVICE SERVICE STATUTE MILE INITIAL 42506 [facility]ATYESHA [facility] 9 DON R DON R CARE/DAY 50 MINUTES RADIOLOGI 42610 [facility] ORTIZ 9 MEDICAL DEAN EXAMINATI IMAGING ON CHEST ASSOCIATE SINGLE S VIEW FRONTAL AMB A0427 [facility] SERVICE 9 AMBULANCE AMBULANCE ALS SERVICE SERVICE EMERGENCY TRANSPORT LEVEL 1 ECG 98623 OMARI OHARA ROUTINE 9 [facility], ECG [facility] W/LEAST PROF SERV 12 LDS I&R ONLY RADIOLOGI 22144 [facility] ORTIZ 9 MEDICAL DEAN EXAMINATI IMAGING ON PELVIS ASSOCIATE 1/2 S VIEWS OPHTH 85982 [facility] 9 MEDICAL MARTINE D XM&EVAL SERV INTERMEDI FOUNDATIO ATE ESTAB PT ADMINISTR G0008 TYESHA ARAMBULA, ATION OF DON R DON R INFLUENZA VIRUS VACCINE PPSV23 44608 TYESHA ARAMBULA, ERNESTO 2 9 DON R DON R YRS OR OLDER FOR SUBQ/IM USE IIV3 96488 TYESHA ARAMBULA, ERNESTO 9 DON R DON R SPLIT VIRUS 0.5 ML DOSAGE IM USE ADMINISTR G0009 TYESHA ARAMBULA, ATION OF 9 DON R DON R PNEUMOCOC CECLIIA VACCINE URNLS DIP 23672 TYESHA ARAMBULA 9 DON R DON R STICK/TAB LET RGNT NON-AUTO W/O MICRSCP URNLS DIP 86334 TYESHA ARAMBULA 9 DON R DON R STICK/TAB LET RGNT NON-AUTO W/O MICRSCP INJECTION J3420 TYESHA ARAMBULA, VIT B-12 9 DON R DON R CYANOCOBA JEWEL TO 1000 MCG RADEX 97113 OMARI SALCIDO WRIST 9 [facility] COMPLETE INC INC MINIMUM 3 VIEWS RADEX 70120 OMARI SALCIDO ANKLE 9 [facility] COMPLETE INC INC MINIMUM [address] PELVIS 60096 [place] AZ[place], 9 MEDICAL MARCO P W/[place] [address] [facility] TRISATN, ABDOMEN 9 MEDICAL [facility] P W/CONTRAS IMAGING T ASSOCIATE MATERIAL S 3D 26460 [facility] TRISTAN, RENDERING 9 MEDICAL MARCO P IMAGING W/INTERP& ASSOCIATE POSTPROC S DIFF WORK STATION CT THORAX 75088 [facility] TRISTAN, 9 MEDICAL MAR[facility] P W/CONTRAS IMAGING T ASSOCIATE MATERIAL S COMPREHEN 92984 [facility] SIVE 9 [facility] METABOLIC LABORATOR LABORATOR PANEL Y Y COLLECTIO 06352 [facility] N VENOUS 9 [facility]IC [facility]IN[facility] BLOOD LABORATOR LABORATOR VENIPUNCT Y Y URE BLOOD 73629 [facility] COUNT 9 [facility] COMPLETE LABORATOR LABORATOR AUTO&AUTO Y Y DIFRNTL WBC INJECTION J3420 TYESHA ARAMBULA, VIT B-12 9 DON R DON R CYANOCOBA JEWEL TO 1000 MCG INJECTION J1040 TYESHA ARAMBULA, Candie DON R DON R METHYLPRE DNISOLONE ACETATE [address] [place] [address] [facility] BLOOD/URI 9 CLINIC CLINIC C [place] [address] [facility] GAMMAGLOB 9 [facility] ULIN IGA LABORATOR LABORATOR IGD IGG Y Y IGM EACH LACTATE 40460 [facility] DEHYDROGE 9 [facility] NASE LDH LABORATOR LABORATOR Y Y BLOOD 74343 [facility] COUNT 9 [facility] COMPLETE LABORATOR LABORATOR AUTO&AUTO Y Y DIFRNTL WBC COLLECTIO 94095 [facility] N VENOUS 9 [facility]INIC CLINIC BLOOD LABORATOR LABORATOR VENIPUNCT Y Y URE COMPREHEN 78600 [facility] SIVE 9 [facility] METABOLIC LABORATOR LABORATOR PANEL Y Y MYOCRD 61980 OMARI SALCIDO PRFUJ IMG 9 [facility] TOMOG INC INC SPECT DIRECTOR OF MATH STD MYOCRD 47351 OMARI SALCIDO PRFUJ STD 9 [facility] EJEC FXJ INC INC CV STRS 22125 OMARI ROGER, TST 9 [facility] XERS&/OR HOSPITAL RX CONT PROF SERV ECG W/O I&R CV STRS 81099 OMARI SALCIDO TST 9 [facility] XERS&/OR INC INC RX CONT ECG TRCG ONLY CV STRS 73525 OMARI RAMINJOHANNA, TST 9 [facility] XERS&/OR HOSPITAL RX CONT PROF SERV ECG I&R ONLY MYOCRD 04155 OMARI SALCIDO PRFUJ STD 9 [facility] WALL INC INC MOTION QUAL/NAYE STD TECHNETIU A9502 OMARI SALCIDO M TC-99M 9 [facility] TETROFOSM INC INC IN DX PER STUDY DOSE INJECTION J0152 OMARI SALCIDO 9 [facility] ADENOSINE INC INC DIAGNOSTI C USE 30 MG RADIOLOGI 12764 TYESHA ARAMBULA C 9 DON R DON R EXAMINATI ON CHEST SINGLE VIEW FRONTAL ECG 17193 TYESHA ARAMBULA ROUTINE 9 DON R DON R ECG W/LEAST 12 LDS W/I&R RADIOLOGI 70581 TYESHA ARAMBULA C EXAM 9 DON R DON R PELVIS COMPL MINIMUM 3 VIEWS RADEX HIP 33903 TYESHA ARAMBULA 9 DON R DON R UNILATERA L COMPLETE MINIMUM 2 VIEWS INJECTION J1040 TYESHA ARAMBULA 9 DON R DON R METHYLPRE DNISOLONE ACETATE 80 MG INJECTION J1040 TYESHA ARAMBULA 8 DON R DON R METHYLPRE DNISOLONE ACETATE [address] [place] [address] [facility] BLOOD/URI 8 CLINIC CLINIC C ACID LABORATOR LABORATOR Y Y COMPREHEN 03050 [facility] SIVE 8 [facility] METABOLIC LABORATOR LABORATOR PANEL Y Y COLLECTIO 34571 [facility] N VENOUS 8 CLINIC CLINIC BLOOD LABORATOR LABORATOR VENIPUNCT Y Y URE LACTATE 95805 [facility] DEHYDROGE 8 CLINIC CLINIC NASE LDH LABORATOR LABORATOR Y Y BLOOD 77926 [facility] COUNT 8 [facility]IN[facility] COMPLETE LABORATOR LABORATOR AUTO&AUTO Y Y DIFRNTL WBC INJECTION J1040 TYESHA ARAMBULA, Roberta DON R DON R METHYLPRE DNISOLONE ACETATE 80 MG OPHTH 80553 [place] [facility] 8 [facility]&EVAL SERV COMPRHNSV FOUNDATIO ESTAB PT 1/> URNLS DIP 92125 TYESHA ARAMBULA, Roberta DON R DON R STICK/TAB LET RGNT NON-AUTO W/O MICRSCP ADMINISTR G0008 TYESHA ARAMBULA, ATION OF 8 DON R DON R INFLUENZA VIRUS VACCINE IIV3 13192 TYESHA ARAMBULA, VACCINE 8 DON R DON R SPLIT VIRUS 0.5 ML DOSAGE IM USE BLOOD 71346 [facility] COUNT [address] [place] [address] COMPLETE AUTOMATED THER 88004 [facility] PROPH/DX [address] [place] [address] NJX IV PUSH 1ST SBST/[place] [address] [facility] UREA [address] [place] [address] NITROGEN QUANTITAT RIGO BLOOD 50641 [facility] GASES ANY [address] [place] [address] COMBINATI ON PH PCO2 PO2 CO2 HCO3 GLUCOSE 06440 [facility] [address] [place] [address] RIGO BLOOD XCPT REAGENT STRIP SODIUM [address] [place] [address] [facility] TROPONIN [address] [place] [address] QUANTITAT RIGO NATRIURET 32855 [facility] IC [address] [place] [address] PEPTIDE POTASSIUM [address] PLASMA/[place] [address] [facility] LIPASE [address] [place] [address] CHLORIDE 77175 [facility] BLD [address] [place] [address] HEPATIC 62049 [facility] FUNCTION [address] [place] [address] PANEL URNLS DIP [address] STICK/TAB LET REAGENT AUTO MICROSCOP Y ECG 51455 [facility] ROUTINE [address] [place] [address] ECG W/LEAST 12 LDS TRCG ONLY W/O I&R INJECTION J2405 [address] ONDANSETR ON HCL PER 1 MG IV NFUS 56006 [facility] HYDRATION 8 [facility] EA HR RADIOLOGI 53172 [facility] C EXAM [address] [place] [address] CHEST 2 VIEWS FRONTAL&L ATERAL ECG 51545 EMERGENCY ACKERMAN, ROUTINE 8 PHYS CARL W ECG [place] W/LEAST 12 LDS I&R ONLY RADEX 97748 OMARI SALCIDO SPINE 8 [facility] AL MINIMUM 4 VIEWS RADIOLOGI 19191 TYESHA ARAMBULA C EXAM 8 DON R [...] Code Location Performer Type Date CRITICAL . [facility] 7 7 [facility] 7 7 [facility] 7 7 [facility] - 7 7 [facility] - 7 7 [facility] T OFFICE 45545 [facility] 7 7 PHYSICIAN T VISIT S GROUP 25 MINUTES [facility] - 7 7 [facility] 27660 [facility] T VISIT S GROUP 25 MINUTES [facility] 7 [facility] 7 [facility] INC T OFFICE 60261 [facility] RIKI OUTPATIEN 7 7 PHYSICIAN T VISIT S GROUP 40 MINUTES OFFICE 78471 [facility] HENRY OUTPATIEN 7 7 MEDICAL T VISIT SERV 25 FOUNDATIO MINUTES [facility]MAR[facility] - 7 7 [facility] OUTPATIEN INC T OFFICE 19425 [facility] RIKI OUTPATIEN 7 7 PHYSICIAN T VISIT S GROUP 40 MINUTES [facility] - 7 7 [facility] OUTPATIEN INC [facility] - 7 7 [facility] OUTPATIEN INC [facility] - 7 7 [facility] OUTPATIEN INC T OFFICE 79533 MERRY HENRY OUTPATIEN 7 7 MEDICAL T NEW 60 SERV MINUTES [facility] - 7 7 [facility] OUTPATIEN INC T OFFICE 63862 [facility] RIKI OUTPATIEN 7 7 PHYSICIAN T VISIT S GROUP 15 MINUTES [facility] 7 7 [facility] OUTPAT[facility] INC T OFFICE 28677 [facility] R[facility]I OUTPATIEN 7 7 PHYSICIAN T NEW 60 S GROUP MINUTES [facility]OSP[facility] - 7 7 [facility] OUTPATIEN INC [facility] - 7 7 [facility] OUTPATIEN INC [facility] - OTHER 7 7 [facility] - 7 7 [facility] OUTPATIEN INC T EMERGENCY 43368 [facility] MAK 7 7 [facility], [facility] T VISIT HIGH/URGE NT SEVERITY EMERGENCY 77798 [facility] 7 7 [facility] DEPARTMEN INC T VISIT LOW/MODER SEVERITY OFFICE 52123 ISMAEL GUEVARA JR OUTPATIEN 7 7 T VISIT 15 MINUTES OFFICE 76732 [facility] 6 [place] T NEW 20 CLINIC MINUTES PSC [facility] INPATIENT 6 6 [facility] 6 6 [facility] - 6 6 [facility]PAT[facility] INC T [facility] INPATIENT 6 6 [facility] EMERGENCY 49490 [facility] CASTILLO DEPT 6 6 PHYSICIAN SARAH VISIT S, [facility] HIGH SEVERITY& THREAT [facility] OMARI - 6 6 [facility] INPATIENT INC EMERGENCY 48545 CU[facility] JAQUEZ 6 6 PHYSICIAN FOR DEPARTMEN S, [facility] T VISIT MODERATE SEVERITY OFFICE 44655 [facility] DYLAN SIMMONS OUTPATIEN 6 6 PHYSICIAN MANJINDER T VISIT S GROUP 10 MINUTES HOSPITAL [facility] - 6 6 [facility] OUTPATIEN INC T OFFICE 19040 ISMAEL GUEVARA JR OUTPATIEN 6 6 YOJANA DWI T VISIT 15 MINUTES OFFICE 44448 [facility] DYLAN SIMMONS OUTPATIEN 6 6 PHYSICIAN MANJINDER T VISIT S GROUP 15 MINUTES HOSPITAL [facility] - 6 6 [facility] OUTPATIEN INC T OFFICE 26444 ISMAEL GUEVARA JR OUTPATIEN 6 6 YOJANA DWI T VISIT 15 MINUTES OFFICE 50309 ISMAEL GEUVARA JR OUTPATIEN 6 6 YOJANA DWI T VISIT 15 MINUTES HOSPITAL [facility] - 6 6 [facility] OUTPATIEN INC T OFFICE 57168 ISMAEL GUEVARA OUTPATIEN 6 6 YOJANA YOJANA T VISIT 15 MINUTES OFFICE 10-23-201 10-23-201 33872 ISMAEL GUEVARA JR OUTPATIEN 5 5 YOJANA DWI T VISIT 15 MINUTES HOSPITAL [facility] - 5 5 [facility] OFF[facility] 41704 ISMAEL GUEVARA JR OUTPATIEN 5 5 YOJANA DWI T VISIT 15 MINUTES HOSPITAL [facility] - 5 5 [facility] OTHER 5 5 [facility] OFF[facility] 82070 ISMAEL GUEVARA JR OUTPATIEN 5 5 YOJANA DWI T VISIT 15 MINUTES OFFICE 55363 [facility] DYLAN OUTPATIEN 5 5 PHYSICIAN MANJINDER T VISIT S GROUP 15 MINUTES HOSPITAL [facility] - OTHER 5 5 [facility] O[facility] - 5 5 [facility] T OFFICE 43962 [facility] DYLAN OUTPATIEN 5 5 PHYSICIAN MANJINDER T VISIT S GROUP 25 MINUTES HOSPITAL [facility] - 5 5 [facility] - 5 5 [facility] - OTHER 5 5 [facility] 5 5 [facility] OFFICE 81726 ISMAEL GUEVARA JR OUTPATIEN 5 5 YOJANA DWI T VISIT 15 MINUTES HOSPITAL [facility] - OTHER 5 5 [facility] OFF[facility] 66723 ISMAEL GUEVARA JR OUTPATIEN 5 5 YOJANA DWI T VISIT 15 MINUTES EMERGENCY 08678 [facility] 5 5 [facility] 2] VISIT HIGH/URGE NT SEVERITY HOSPITAL [facility] - 5 5 [facility] OFF[facility] 28000 ISMAEL GUEVARA JR OUTPATIEN 5 5 YOJANA DWI T VISIT 15 MINUTES HOSPITAL [facility] - OTHER 5 5 [facility] INC OFFICE 39801 ISMAEL GUEVARA JR OUTPATIEN 4 4 YOJANA DWI T VISIT 15 MINUTES OFFICE 42106 ISMAEL GUEVARA JR OUTPATIEN 4 4 YOJANA DWI T VISIT 15 MINUTES HOSPITAL [facility]AR[facility] - 4 4 [facility] OUTPATIEN INC T OFFICE 36225 [facility] OUTPATIEN 4 4 [facility] T NEW 30 MEDICAL MINUTES G OFFICE 94160 ISMAEL GUEVARA JR OUTPATIEN 4 4 YOJANA DWI T VISIT 15 MINUTES [facility] 4 4 [facility] OUTPATIEN INC T OFFICE 12115 ISMAEL GUEVARA JR OUTPATIEN 4 4 YOJANA DWI T VISIT 15 MINUTES EMERGENCY 23780 [facility] H[facility]URGE NT SEVERITY [facility] - 4 4 [facility] OUTPATIEN INC T EMERGENCY 09273 [facility] DEPT 4 4 [facility]GAN MOH VISIT EMERGENCY HIGH PHYS SEVERITY& THREAT FUNCJ OFFICE 70012 ISMAEL ALFORDEN 4 4 YOJANA DWI T VISIT [address] ACCESS 4 4 [facility] EMERGENCY 49090 [facility] 4 4 [facility] MED CTR T VISIT MODERATE SEVERITY OFFICE 44811 ISMAEL ALFORDEN 4 4 YOJANA DWI T VISIT 10 MINUTES OFFICE 18429 ISMAEL GUEVARA JR OUTPATIEN 4 4 YOJANA DWI T VISIT 15 MINUTES HOSPITAL [facility] COELLO 4 4 [facility] INC OFFICE 37497 ISMAEL GUEVARA JR OUTPATIEN 4 4 YOJANA DWI T VISIT 15 MINUTES HOSPITAL [facility] - 4 4 [facility] T OFFICE 87470 ISMAEL GUEVARA JR OUTPATIEN 4 4 YOJANA DWI T VISIT 15 MINUTES HOSPITAL [facility] - OTHER 4 4 [facility] INC OFFICE 56094 ISMAEL GUEVARA JR OUTPATIEN 4 4 YOJANA DWI T VISIT 15 MINUTES EMERGENCY 05759 [facility] DEPT 4 4 [place] VISIT EMERGENCY HIGH PHYS SEVERITY& THREAT FUN OFFICE 52127 ISMAEL GUEVARA JR OUTPATIEN 4 4 YOJANA DWI T VISIT 15 MINUTES OFFICE 74830 ISMAEL GUEVARA JR OUTPATIEN 4 4 YOJANA DWI T VISIT 25 MINUTES HOSPITAL [facility] - 4 4 [facility] T EMERGENCY 28702 [facility] T VISIT MODERATE SEVERITY [facility]OSP[facility] - 4 4 [facility]PAT[facility]EN [facility] T EMERGENCY 62423 [facility] 4 4 M[facility] [facility] DEPARTMEN EMERGENCY T VISIT PHYS HIGH/URGE NT SEVERITY EMERGENCY 09850 [facility] 4 4 [place] DEPARTMEN EMERGENCY T VISIT PHYS MODERATE SEVERITY EMERGENCY 86313 [facility] 4 4 [facility] DEPARTMEN INC T VISIT LOW/MODER SEVERITY HOSPITAL [facility] - 4 4 [facility] OUTPATIEN [facility]MAR[facility] - OTHER 4 4 [facility] OMAR[facility] - 3 3 [facility] T OFFICE 77991 ISMAEL GUEVARA JR OUTPATIEN 3 3 YOJANA DWI T VISIT 15 MINUTES HOSPITAL [facility] - 3 3 [facility] OUTPATIEN INC T OFFICE 23532 [facility] TRA OUTPATIEN 3 3 [place] T VISIT ORTHOPAED [facility] MINUTES OFFICE 59016 JAIME GEIGER [facility] OUTPATIEN 3 3 [place] [facility] 15 PSC MINUTES OFFICE 49493 ARAMB[facility]A ARAMBULA OUTPATIEN 3 3 DON DON T VISIT 15 MINUTES OFFICE 01684 [facility] ARAMBULA OUTPATIEN 3 3 DON DON T VISIT 15 MINUTES Emergency TY Arias (ER) 3 14:41 3 16:55 [facility] - 3 3 [facility] OUTPATIEN INC T EMERGENCY 13610 [facility] 3 3 [facility] DEPARTMEN INC T VISIT LOW/MODER SEVERITY EMERGENCY 08723 EMILY ARIAS DEPT [address] [facility] VISIT SERVICES HIGH SEVERITY& THREAT FUN Emergency TY Stark MD (ER) 3 20:06 3 23:03 [facility] EMERGENCY 67134 [facility] 3 3 [facility] DEPARTMEN INC T VISIT LOW/MODER SEVERITY [facility]OSPITAL [facility] - 3 3 [facility] OUTPATIEN INC T EMERGENCY 34829 EMILY STARK DEPT 3 3 EMERGENCY [facility] VISIT SERVICES HIGH SEVERITY& THREAT FUNJ OFFICE 11864 [facility] ARAMBULA OUTPATIEN 3 3 DON DON T VISIT 15 MINUTES HOSPITAL [facility] - 3 3 [facility] OUTPATIEN INC T OFFICE 23862 ARAMBUL[facility] ARAMBULA OUTPATIEN 3 3 DON DON T VISIT 25 MINUTES HOSPITAL [facility] - 3 3 [facility] OUTPATIEN INC T OFFICE 69090 ARAMB[facility]A ARAMBULA OUTPATIEN 3 3 DON DON [...] [facility] - 3 3 [facility] T OFFICE 11140 ARAMBULA ARAMBULA OUTPATIEN 3 3 DON DON T VISIT 15 MINUTES OFFICE 25870 ARAM[facility] ARAMBULA OUTPATIEN 2 2 DON DON T VISIT 15 MINUTES OFFICE 29833 ARAMBULA ARAMBULA OUTPATIEN 2 2 DON DON T VISIT 25 MINUTES OFFICE 01733 [facility] ARAMBULA OUTPATIEN 2 2 DON DON T VISIT 25 MINUTES OFFICE 56174 ARAMBULA ARAMBULA OUTPATIEN 2 2 DON DON T VISIT 25 MINUTES OFFICE 70208 ARAMBULA ARAMBULA OUTPATIEN 2 2 DON DON T VISIT 15 MINUTES EMERGENCY 21471 EMILY STARK DEPT 2 2 EMERGENCY [facility] VISIT SERVICES HIGH SEVERITY& THREAT FUN EMERGENCY 46417 [facility] 2 2 [facility] T VISIT HIGH/URGE NT SEVERITY [facility] - 2 2 [facility] OUTPATIEN INC T OFFICE 85259 [place] [facility] OUTPATIEN 2 2 [place] T VISIT CLINIC 15 PSC MINUTES [facility]OSPITAL [facility] - 2 2 [facility] OUTPATIEN INC T OFFICE 36814 ARAMBUL[facility] ARAMBULA OUTPATIEN 2 2 DON DON T VISIT 15 MINUTES OFFICE 22433 [facility] ARAMBULA OUTPATIEN 2 2 DON DON T VISIT 15 MINUTES HOSPITAL [facility] - 2 2 [facility] OUTPATIEN INC T [facility] - 2 2 [facility] OUTPATIEN INC T OFFICE 98267 ARAMBULA ARAMBULA OUTPATIEN 2 2 DON DON T VISIT 15 MINUTES OFFICE 81840 ARAM[facility] ARAMBULA OUTPATIEN 2 2 DON DON T VISIT 15 MINUTES OFFICE 52584 ARAMBULA ARAMBULA OUTPATIEN 1 1 DON DON T VISIT 15 MINUTES OFFICE 05286 ARAMBULA ARAMBULA OUTPATIEN 1 1 DON DON T VISIT 15 MINUTES OFFICE 88002 PAWSAT PAWSAT OUTPATIEN 1 1 MAR JAN T VISIT 10 MINUTES OFFICE 11023 ARAMBULA ARAMBULA OUTPATIEN 1 1 DON DON T VISIT 15 MINUTES EMERGENCY 34769 EMILY BRISENO BAB 1 1 EMERGENCY [facility] T VISIT MODERATE SEVERITY OFFICE 80362 ARAMBULA ARAMBULA OUTPATIEN 1 1 DON DON T VISIT 15 MINUTES OFFICE 12816 [facility]BULA ARAMBULA OUTPATIEN 1 1 DON DON T VISIT 15 MINUTES [facility] T OFFICE 02015 ARAMBULA ARAMBULA OUTPATIEN 1 1 DON DON T VISIT 15 MINUTES OFFICE 50627 [place] [facility] 1 1 [place] [facility] NEW 30 [facility]INIC MINUTES PSC OFFICE 11986 ARAMBULA ARAMBULA OUTPATIEN 1 1 DON DON T VISIT 15 MINUTES OFFICE 41517 PAWSAT PAWSAT OUTPATIEN 1 1 ISMAEL Chan NEW 20 MINUTES [facility] T OFFICE 07190 [facility] SAJAN OUTPATIEN 1 1 [facility] T VISIT CLINIC 25 PSC MINUTES OFFICE 29049 ARAMBULA ARAMBULA OUTPATIEN 1 1 DON DON T VISIT 15 MINUTES OFFICE 76538 ARAMBULA ARAMBULA OUTPATIEN 1 1 DON DON T VISIT 15 MINUTES OFFICE 79541 ARAMBULA ARAMBULA OUTPATIEN 1 1 DON DON T VISIT 15 MINUTES OFFICE 37266 [facility] JEAN-BAPTISTE JR OUTPATIEN 1 1 [facility] VISIT HOSPITAL 15 P MINUTES OFFICE 69239 ARAMBULA ARAMBULA OUTPATIEN 1 1 DON DON T VISIT 15 MINUTES OFFICE 47884 ARAMBULA ARAMBULA OUTPATIEN 1 1 DON DON T VISIT 15 MINUTES [facility] - 1 1 [facility] OUTPATI[facility] INC T OFFICE 50890 ARAMBULA ARAMBULA OUTPATIEN 1 1 DON DON T VISIT 15 MINUTES OFFICE 54514 ARAMBULA ARAMBULA OUTPATIEN 0 0 DON DON T VISIT 15 MINUTES OFFICE 93820 ARAMBULA ARAMBULA OUTPATIEN 0 0 DON DON T VISIT 15 MINUTES OFFICE 56500 ARAMBULA ARAMBULA OUTPATIEN 0 0 DON DON T VISIT 15 MINUTES OFFICE 42928 ARAMBULA ARAMBULA OUTPATIEN 0 0 DON DON T VISIT 15 MINUTES EMERGENCY 93713 EMILY STARK 0 0 EMERGENCY [facility] DEPARTMEN SERVICES T VISIT HIGH/URGE NT SEVERITY [facility] INC T EMERGENCY 23155 [facility] 0 0 [facility] DEPARTMEN INC T VISIT LOW/MODER SEVERITY OFFICE 29928 ARAMBULA ARAMBULA OUTPATIEN 0 0 DON DON T VISIT 15 MINUTES [facility] T OFFICE 62833 ARAMBULA ARAMBULA OUTPATIEN 0 0 DON DON T VISIT 15 MINUTES OFFICE 59354 [facility] ESTIVEN JR OUTPATIEN 0 0 LTH VARUN T VISIT UROLOGY 15 PSC MINUTES OFFICE 48364 ARAMBULA ARAMBULA OUTPATIEN 0 0 DON DON T VISIT 15 MINUTES OFFICE 86446 [facility] EST[facility] OUTPATIEN 0 0 LTH VARUN T NEW 20 UROLOGY MINUTES PSC OFFICE 17848 ARAMBULA ARAMBULA OUTPATIEN 0 0 DON DON T VISIT 15 MINUTES OFFICE 55540 ARAMBULA ARAMBULA OUTPATIEN 0 0 DON DON T VISIT 15 MINUTES OFFICE 69030 ARAMBULA, ARAMBULA, OUTPATIEN 0 0 DON R DON R T VISIT 15 MINUTES [facility] T EMERGENCY 33407 EMILY STARK, 0 0 EMERGENCY [facility] DEPARTMEN SERVICES T VISIT HIGH/URGE ASSOCIATE NT S SEVERITY EMERGENCY 38887 [facility] 0 0 [facility] DEPARTMEN INC T VISIT LIMITED/M INOR PROB OFFICE 07831 ARAMBULA, ARAMBULA, OUTPATIEN 0 0 DON R DON R T VISIT 15 MINUTES OFFICE 97788 JAIME GEIGER, OUTPATIEN 0 0 [place] [facility] T VISIT CLINIC 15 PSC MINUTES OFFICE 76790 TYESHA ARAMBULA OUTPATIEN 0 0 DON R DON R T VISIT 15 MINUTES EMERGENCY 98000 [facility] 0 0 [facility] DEPARTMEN INC T VISIT LIMITED/M INOR PROB EMERGENCY 44658 EMILY GUNN, 0 0 EMERGENCY [facility] T VISIT HIGH/URGE ASSOCIATE NT S SEVERITY [facility] T OFFICE 88494 TYESHA ARAMBULA OUTPATIEN 0 0 DON R DON R T VISIT 15 MINUTES [facility] T OFFICE 80878 TYESHA ARAMBULA OUTPATIEN 0 0 DON R DON R T VISIT 15 MINUTES OFFICE 95530 [place] [facility]IN[facility] 0 0 AND HAND NANDO A T NEW 10 SURGEONS MINUTES [facility] - 0 0 [facility] T OFFICE 28884 TYESHA ARAMBULA OUTPATIEN 0 0 DON R DON R T VISIT 25 MINUTES OFFICE 94210 TYESHA ARAMBULA OUTPATIEN 0 0 DON R DON R T VISIT 15 MINUTES OFFICE 37119 TYESHA ARAMBULA OUTPATIEN 9 9 DON R DON R T VISIT 15 MINUTES OFFICE 33503 TYESHA ARAMBULA OUTPATIEN 9 9 DON R DON R T VISIT 15 MINUTES [facility] - 9 9 [facility] T EMERGENCY [id number] EMILY STARK, DEPT 9 9 EMERGENCY MADDY S VISIT SERVICES HIGH SEVERITY& ASSOCIATE [facility]AT [facility] INPATIENT INC OFFICE 80863 TYESHA ARAMBULA OUTPATIEN 9 9 DON R DON R T VISIT 15 MINUTES OFFICE 62907 TYESHA ARAMBULA OUTPATIEN 9 9 DON R DON R T VISIT 15 MINUTES OFFICE 64159 TYESHA ARAMBULA OUTPATIAINSLEY 9 9 DON R DON R T VISIT 15 MINUTES OFFICE 04773 TYESHA ARAMBULA OUTPATIEN 9 9 DON R DON R T VISIT 25 MINUTES EMERGENCY 14818 EMILY RAINES, 9 9 EMERGENCY [facility] SERVICES T VISIT HIGH/URGE ASSOCIATE NT S SEVERITY [facility]OSP[facility] - 9 9 [facility] OUTPATIEN INC T EMERGENCY [id number] OMARI 9 9 [facility] T VISIT MODERATE SEVERITY [facility]OSPITAL [facility] - 9 9 [facility] OUTPATIEN INC T OFFICE 59372 BANDAR CARRASCO 9 9 AKIKO Johnson T VISIT CLINIC 25 PSC MINUTES OFFICE 37975 TYESHA ARAMBULA OUTPATIEN 9 9 DON R DON R T VISIT 15 MINUTES OFFICE 59686 BANDAR CARRASCO 9 9 AKIKO Johnson T VISIT CLINIC 25 PSC MINUTES [facility]OSPITAL [facility] - 9 9 [facility] OUTPATIEN INC T OFFICE 47503 TYSEHA ARAMBULA OUTPATIEN 9 9 DON R DON R T VISIT 15 MINUTES OFFICE 65859 TYESHA ARAMBULA OUTPATIEN 9 9 DON R DON R T VISIT 15 MINUTES OFFICE 58534 TYESHA ARAMBULA OUTPATIEN 8 8 DON R DON R T VISIT 15 MINUTES OFFICE 03271 TYESHA ARAMBULA OUTPATIEN 8 8 DON R DON R T VISIT 15 MINUTES OFFICE 93179 TYESHA ARAMBULA OUTPATIEN 8 8 DON R DON R T VISIT 15 MINUTES OFFICE 40594 NEW BANDAR BELL 8 8 PALMER MAHESH M T NEW 45 CLINIC MINUTES [facility] 8 [facility] 64263 EMERGENCY ACKERMAN, DEPT 8 8 PHYS CARL W VISIT PALMER HIGH SEVERITY& THREAT FUNJ EMERGENCY 05865 [facility] 8 8 [facility] VISIT MODERATE SEVERITY [facility]OSPITAL [place] - 8 8 [facility] 21461 TYESHA ARAMBULA OUTPATIEN 8 8 DON R DON R T VISIT 15 MINUTES OFFICE 33302 TYESHA ARAMBULA OUTPATIEN 8 8 DON R DON R T VISIT 15 MINUTES OFFICE 45972 TYESHA ARAMBULA OUTPATIEN 8 8 DON R DON R T VISIT 15 MINUTES OFFICE 56894 TYESHA ARAMBULA OUTPATIEN 8 8 DON R DON R T VISIT 15 MINUTES OFFICE 85568 TYESHA ARAMBULA OUTPATIEN 8 8 DON R DON R T VISIT 15 MINUTES
--- OUTSIDE RECORDS SUMMARY | 2017-08-19 20:42 | External Medical Summary Rpt | CCD ---
Author Author , KARLIE ZIEGLER Address Unknown Phone [email or web address] Care Team Providers Care Child Welfare Social Worker Name Role Phone ALFARIS MOH, ALFARIS Unavailable Unavailable MOH ALLRAN JR MANJINDER, ALLRAN Unavailable Unavailable JR MANJINDER ANJUR-KAPALI CORNELIA, Unavailable Unavailable ANJUR-KAPALI CORNELIA [facility] Unavailable Unavailable [facility], [facility] Unavailable Unavailable [facility], [facility] GUPTA BRO, GUPTA Unavailable [...] SAJAN Unavailable Unavailable [facility] Unavailable Unavailable CAMPUS, [facility] Unavailable Unavailable ANESTHESIA, [facility] ANESTHESIA [facility] Unavailable Unavailable [facility], [facility] Unavailable Unavailable DUBILIER, [facility], Unavailable Unavailable [facility] BARROW JANET, BARROW Unavailable Unavailable JANET [facility] Unavailable Unavailable [place], [facility]available Unavailable [facility], [facility] Unavailable Unavailable PSC, [facility] ANESTH OF [...] MADDY STARK S, Unavailable Unavailable MADDY STARK [facility] Unavailable Unavailable INC, [facility] Unavailable Unavailable HOSPITAL P, [facility], Unavailable Unavailable [facility] HORN SAJAN, HORN SAJAN Unavailable Unavailable HORN MADDY E, Unavailable Unavailable HORNMADDY E BRENNAN JOSHI, BRENNAN Unavailable Unavailable ADI MAK, MAK Unavailable Unavailable LUCAS TRA, LUCAS TRA Unavailable Unavailable MANUELA ORTEGA, MANUELA Unavailable Unavailable ORTEGA CASEY CHARLES, CASEY CHARLES Unavailable Unavailable [facility] Un[facility] Unavailable GROUP PS, [facility] Un[facility] Unavailable [facility], [facility] Unavailable Unavailable IMAGING [facility], [facility] Unavailable Unavailable MEDICAL G, [facility] KORBA ORTEGA, KORBA ORTEGA [...] YOJANA E, Unavailable Unavailable ISMAEL, YOJANA E [facility] Unavailable [facility], [facility] Unavailable Unavailable LABORATORY, [facility] Unavailable Unavailable SERVICES, [facility] RAY AND, Unavailable Unavailable RAY AND MAYDA SIMMONS JORGE Unavailable Unavailable MAYDA Hollis JR, WILLIAM F MARCO TRISTAN, Unavailable Unavailable MARCO TRISTAN WILLIAM F, Unavailable Unavailable JORGE GAMINO CLAUDETTE ORTEGA, CLAUDETTE Unavailable Unavailable ORTEGA MAHESH BELL, Unavailable Unavailable ARABELLA MAHESH M [facility] Unavailable Unavailable [facility], [facility] NANDO PEREZ, Unavailable Unavailable CHRIS, NANDO [...] [facility] Unavailable Unavailable EMERGENCY PHYS, [facility] NISHA SHE, Unavailable Unavailable NISHA SHE [facility], Unavailable Unavailable [facility], Unavailable Unavailable [facility] ARAMBULA DON, Unavailable Unavailable ARAMBULA DON ARAMBULA [...] 2016 Problems Code Diagnosis DOS Provider Status [id number] UNSPECIFIED 07-17-2017 [facility] OF [place] HEAD [facility]THA INITIAL ENCOUNTER [id number] CONTUSION 07-17-2017 ST. OF LEFT [place] FOREARM PARTHA INITIAL ENCOUNTER [id number] LACERATION 07-17-2017 ST. W/O FOREIGN [place] BODY LT PARTHA FOREARM INITIAL D86366 OTHER LONG 07-17-2017 . TERM [place] CURRENT PARTHA DRUG THERAPY Z9181 HISTORY OF 07-17-2017 [facility], [facility] [place] E875 HYPERKALEMI 07-06-2017 [facility] A [facility] D649 ANEMIA 07-02-2017 [facility] UNSPECIFIED [facility] INC I10 ESSENTIAL 07-02-2017 [facility] PRIMARY [facility] HYPERTENSIO INC N K219 GASTRO-ESOP 07-02-2017 [facility] H REFLUX [facility] DISEASE INC WITHOUT ESOPHAGITIS N183 CHRONIC 07-02-2017 [facility] KIDNEY [facility] DISEASE INC STAGE 3 MODERATE D89840 UNSPECIFIED 06-28-2017 [facility] HOME WITH ACUTE MEDICAL EXACERBATIO EQUIPME N J90 PLEURAL 06-16-2017 [facility] NOT IMAGING ASS ELSEWHERE CLASSIFIED R0602 SHORTNESS 06-16-2017 [facility] OF BREATH [facility] ASS R062 WHEEZING 06-16-2017 [facility] R918 OTHER 06-16-2017 [facility] NONSPECIFIC MEDICAL ABNORMAL IMAGING ASS FINDING OF LUNG FIELD I119 HYPERTENSIV 06-01-2017 [facility] E HEART PHYSICIANS DISEASE GROUP WITHOUT HEART FAILURE I4891 UNSPECIFIED 06-01-2017 [facility] ATRIAL PHYSICIANS FIBRILLATIO GROUP N R0600 DYSPNEA 06-01-2017 [facility] UNSPECIFIED [facility] INC Z950 PRESENCE OF 06-01-2017 [facility] CARDIAC PHYSICIANS PACEMAKER GROUP I2510 ASHD [place] 04-27-2017 [facility] 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 ANGINA PECTORIS I351 NONRHEUMATI 04-27-2017 [facility] C AORTIC PHYSICIANS VALVE GROUP INSUFFICIEN CY R296 REPEATED 04-27-2017 [facility] FALLS PHYSICIANS GROUP R5383 OTHER 04-27-2017 [facility] FATIGUE PHYSICIANS GROUP R17514 PAIN IN 04-23-2017 [facility] LEFT ARM [facility]ICAL [facility]ING ASS A92921 PAIN IN 04-23-2017 [facility] LEFT UPPER [facility] ARM INC R2232 LOCALIZED 04-23-2017 [facility] SWELLING [facility] MASS AND INC LUMP LEFT UPPER LIMB R600 LOCALIZED 04-23-2017 [facility] EDEMA [facility] C8597 NON-HODGKIN 04-20-2017 [facility] LYMPHOMA [facility] UNSPECIFIED INC SPLEEN I272 OTHER 04-20-2017 [facility] SECONDARY [facility] PULMONARY INC HYPERTENSIO N I495 SICK SINUS 04-20-2017 [facility] SYNDROME PHYSICIANS GROUP R001 BRADYCARDIA 04-20-2017 [facility] PHYSICIANS UNSPECIFIED GROUP R002 PALPITATION 04-20-2017 [facility] S PHYSICIANS GROUP I482 CHRONIC 04-02-2017 [place] [facility] ATRIAL SERV FIBRILLATIO FOUNDATION N C8590 NON-HODGKIN 03-22-2017 [facility] LYMPHOMA [facility]ICAL UNS IMAGING ASS UNSPECIFIED SITE I209 ANGINA 03-16-2017 [facility] PECTORIS [facility] UNSPECIFIED INC I208 OTHER FORMS 03-10-2017 [facility] OF ANGINA [facility] PECTORIS INC Q44750 PERSONAL 02-26-2017 [place] [facility] OTH SERV [facility] THROMBOSIS& EMBOLISM I67216 ACUTE EMBO 02-23-2017 [facility] THROMB UNS PHYSICIANS DEEP VEINS GROUP UNS LOW EXTREM R42 DIZZINESS 02-23-2017 [facility] AND PHYSICIANS GIDDINESS GROUP I499 CARDIAC 02-03-2017 [facility] ARRHYTHMIA [facility] UNSPECIFIED HOSPITAL P I517 CARDIOMEGAL 02-03-2017 [facility] U54509 SPONDYLOSIS 02-03-2017 [place] W/O MEDICAL MYELOPATH/R IMAGING ASS ADICULOPATH Y CERV RGN P59207 OTHER 02-03-2017 [facility] CERVICAL [facility]ICAL DISC IMAGING ASS DEGENERATIO N AT C5-C6 LEVEL C18198 OTHER 02-03-2017 [facility] CERVICAL [facility]ICAL DISC IMAGING ASS DEGENERATIO N AT C6-C7 LEVEL M542 CERVICALGIA 02-03-2017 [facility] M545 LOW BACK 01-13-2017 [facility] PAIN [facility] INC R109 UNSPECIFIED 01-13-2017 [facility] ABDOMINAL [facility] PAIN INC R110 NAUSEA 01-13-2017 [facility] INC Z8673 PERSONAL HX 01-13-2017 [facility] TIA & [facility] CEREB INC INFARCT NO RESID DEFICIT K60590 PAIN IN 01-05-2017 [facility] LEFT HIP [facility]ICAL IM[facility]ING ASS J32719O FRACTURE 01-05-2017 [facility] LT IMAGING ASS PUBIS INIT ENC CLOS FX N68827P OTHER SPEC 01-05-2017 [facility] FX LT PUBIS PHYSICIANS, INITIAL PLLC CLOS FRACTURE J209 ACUTE 11-30-2016 ISMAEL JR BRONCHITIS UNSPECIFIED Z6830 BODY MASS 11-30-2016 ISMAEL JR INDEX BMI 30.0-30.9 ADULT H903 SENSORINEUR 08-04-2016 [place] EAR NOSE AL HEARING AND THROAT LOSS BILATERAL H905 UNSPECIFIED 08-04-2016 [place] [facility] AL HEARING LOSS D539 NUTRITIONAL 06-08-2016 [facility] ANEMIA HEALTH UNSPECIFIED CAMPUS D62 ACUTE 06-08-2016 [facility] POSTHEMORRH HEALTH AGIC ANEMIA CAMPUS R410 DISORIENTAT 06-08-2016 [facility] ION HEALTH UNSPECIFIED CAMPUS R64227U FX UNS PART 06-08-2016 [facility] NECK LT HEALTH FEMUR CAMPUS SUBSQT CLOS FX RTN R45494 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 M659 SYNOVITIS 04-27-2016 [facility] & TENOSYNOVIT DUBILIER IS UNSPECIFIED R2242 LOCALIZED 04-27-2016 [facility]LL[facility] MASS AND IMAGING ASS LUMP LEFT LOWER LIMB G020DIH INFECTION 04-27-2016 [facility] FOLLOWING [facility] PROCEDURE INC INITIAL ENCOUNTER Z4889 ENCOUNTER 04-27-2016 [facility] FOR OTHER [facility] SPECIFIED INC SURGICAL AFTERCARE Z471 AFTERCARE 04-23-2016 [facility] FOLLOWING MEDICAL JOINT IMAGING ASS REPLACEMENT SURGERY Z7401 BED 04-09-2016 [facility] AMBULANCE STATUS SERVICE I129 HYPERTENSIV 04-05-2016 [facility] Elizabeth CKD [facility] W/STAGE 1-4 [facility] P CKD OR UNS CKD W39503 ASHD [place] 04-05-2016 [facility] CARLOS [facility]MA [facility] W/UNS INC ANGINA PECTORIS A56635 PAIN IN 04-05-2016 [place] LEFT THIGH [facility]ICAL IM[facility]ING ASS N179 ACUTE 04-05-2016 [facility] KIDNEY [facility] P UNSPECIFIED R079 CHEST PAIN 04-05-2016 [place] UNSPECIFIED [facility]ICAL IMAGING ASS G12233Z FX UNS PART 04-05-2016 [facility] NECK LT PHYSICIANS, FEMUR PLLC INITIAL ENC CLOS FX S24129P UNS 04-05-2016 [place] INTRACAPSUL MEDICAL AR FX LT IMAGING ASS FEMUR INIT ENC CLOS FX I05OUSA UNSPECIFIED 04-05-2016 [facility] FALL PHYSICIANS INITIAL GROUP ENCOUNTER Z9889 OTHER 04-05-2016 [place] SPECIFIED MEDICAL POSTPROCEDU IMAGING ASS [facility] STATES R0781 PLEURODYNIA 03-30-2016 [facility] R0789 OTHER CHEST 03-30-2016 [facility] PAIN PHYSICIANS, PLLC R911 SOLITARY 03-30-2016 [place] PULMONARY MEDICAL NODULE IMAGING ASS R1031 RIGHT LOWER 03-23-2016 [facility] QUADRANT PHYSICIANS PAIN GROUP R197 DIARRHEA 02-25-2016 [facility] UNSPECIFIED ANESTH OF THE BLUE L299 PRURITUS 02-21-2016 [facility] UNSPECIFIED YOJANA R19561 SPONDYLOSIS 02-21-2016 [facility] W/O YO[place]NA MYELOPATH/R ADICULPATHY LS RGN N281 CYST OF 02-21-2016 [place] KIDNEY [facility]ICAL ACQUIRED IMAGING ASS R1030 LOWER 02-21-2016 [facility] ABDOMINAL [place] PAIN UNSPECIFIED R312 OTHER 02-21-2016 [facility] MICROSCOPIC [facility]NA HEMATURIA R319 HEMATURIA 02-21-2016 [facility] UNSPECIFIED [facility]ICAL IMAGING ASS Z6833 BODY MASS 02-21-2016 [facility] INDEX BMI YOJANA 33.0-33.9 ADULT R05 COUGH 01-07-2016 [facility] R509 FEVER 01-07-2016 [facility] UNSPECIFIED [facility]ICAL IMAGING ASS A084 VIRAL 12-18-2015 [facility] INTESTINAL [facility] INFECTION UNSPECIFIED M150 PRIMARY 09-30-2015 [facility] GENERALIZED PHYSICIANS LA OSTEOARTHRI TIS Z23 ENCOUNTER 08-30-2015 [facility] FOR [place]NA IMMUNIZATIO N Z6831 BODY MASS 08-30-2015 [facility] INDEX BMI YOJANA 31.0-31.9 ADULT 2761 HYPOSMOLALI 08-02-2015 [facility] TY AND/OR [facility] HYPONATREMI INC A 2859 UNSPECIFIED 08-02-2015 [facility] ANEMIA [facility] INC 13537 UNS 08-02-2015 [facility] GASTRITIS&G [facility] ASTRODUODIT INC IS W/O MENTION HEMORR 78889 PAIN IN 08-02-2015 [place] JOINT MEDICAL PELVIC IMAGING ASS REGION AND THIGH 54120 OTHER 07-15-2015 [facility] DYSPNEA AND CO AMBULANCE RESPIRATORY TAXIN ABNORMALITI ES 0093 DIARRHEA OF 07-02-2015 [facility] PRESUMED YO[place]NA INFECTIOUS ORIGIN 4011 ESSENTIAL 07-02-2015 [facility] HYPERTENSIO YOJANA N, BENIGN 5853 CHRONIC 07-02-2015 [facility] KIDNEY [facility] DISEASE STAGE III (MODERATE) 7242 LUMBAGO 07-02-2015 [place] [address] OTHER 07-02-2015 ISMAEL MALAISE AND YOJANA FATIGUE V8533 BODY MASS 07-02-2015 [facility] INDEX YOJANA 33.0-33.9 ADULT 7295 PAIN IN 06-24-2015 [facility] SOFT MEDICAL TISSUES OF IMAGING ASS LIMB 7823 EDEMA 06-24-2015 [facility] 2724 OTHER AND 06-21-2015 [facility] UNSPECIFIED YO[place]NA HYPERLIPIDE SHERYL 73764 DEHYDRATION 06-21-2015 ISMAEL YOJANA 412 OLD 06-21-2015 [facility] MYOCARDIAL Y[place]NA INFARCTION 33876 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 [facility] NODE [place] DYSFUNCTION 59879 ATROPHIC 06-21-2015 [facility] GASTRITIS YOJANA WITHOUT MENTION OF HEMORRHAGE 27107 OTHER 06-21-2015 [place] ALTERATION [place] [address] FEVER 06-21-2015 [facility] UNSPECIFIED YOJANA 91290 ALTERED 06-21-2015 [facility] MENTAL [facility]ICAL STATUS IMAGING ASS 7862 COUGH 06-21-2015 [facility] V1079 PERSONAL HX 06-21-2015 [facility] OTH [facility] LYMPHATIC&H EMATOPOIETI C NEOPLASM V1254 PERSONAL HX 06-21-2015 [facility] TIA & CI YO[place]NA W/O RESIDUAL DEFICITS 5990 URINARY 06-12-2015 [facility] TRACT [facility]ANS INFECTION LA SITE NOT SPECIFIED 16261 OTH & UNS E 05-28-2015 [facility] COLI [facility] INFECTION INC CLASS ELSW UNS SITE 52033 UNSPECIFIED 05-24-2015 [place] [address] GENERALIZED 05-24-2015 ISMAEL YOJANA OSTEOARTHRO SIS UNSPECIFIED SITE 7213 LUMBOSACRAL 05-24-2015 ISMA[facility] Y[place]JANA SPONDYLOSIS WITHOUT MYELOPATHY V8534 BODY MASS 05-24-2015 [facility] INDEX YOJANA 34.0-34.9 ADULT 53497 ABDOMINAL 04-15-2015 [facility] PAIN RIGHT PHYSICIANS LOWER GROUP QUADRANT 99923 PAIN IN 03-26-2015 [facility] JOINT, MEM [facility]OS[facility] SHOULDER INC REGION 38320 DIARRHEA 03-26-2015 [facility] INC 91373 OTH MALIG 03-01-2015 [facility] LYMPHOMAS MEDICAL UNS SITE IMAGING ASS XTRANOD&SEBAS ID ORGN 5932 ACQUIRED 03-01-2015 [place] CYST OF MEDICAL KIDNEY IMAGING ASS 22957 ABDOMINAL 03-01-2015 [facility] PAIN, LEFT [facility] LOWER INC QUADRANT 61848 ESOPHAGEAL 01-30-2015 [facility] REFLUX PHYS SURG CTR 47438 GASTR ULCR 01-30-2015 [facility] UNS PHYS SURG ACUT/CHRN CTR W/O HEMOR PERF/OBST 5379 UNSPECIFIED 01-30-2015 [facility] DISORDER [facility] & OF STOMACH DUBILIER AND DUODENUM 57526 NAUSEA 01-30-2015 [facility] 54567 ABDOMINAL 01-30-2015 [facility] PAIN, [facility] EPIGASTRIC ANESTHESIA 10872 NONEXUDATIV 01-29-2015 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 95515 REGULAR 01-29-2015 [facility] ASTIGMATISM [facility] 81161 OTHER 01-25-2015 [facility] SPECIFIED Y[place] ERYTHEMATOU S CONDITION OTHER 460 ACUTE 12-19-2014 [facility] NASOPHARYNG [facility] ITIS 42399 ASTHMA, 12-19-2014 [facility] UNSPECIFIED YO[facility]NA , UNSPECIFIED STATUS 4660 ACUTE 12-16-2014 [facility] BRONCHITIS [facility] INC V8535 BODY MASS 12-07-2014 [facility] INDEX YOJANA 35.0-35.9 ADULT 4779 ALLERGIC 10-30-2014 [facility] RHINITIS [place] CAUSE UNSPECIFIED 4019 UNSPECIFIED 10-18-2014 [facility] ESSENTIAL [facility] HYPERTENSIO INC N 39990 COR 10-18-2014 [facility] ATHEROSLERO [facility] UNSPEC INC TYPE VESSEL [place]/MORRO T 23346 CHEST PAIN 10-18-2014 [place] [facility] U[facility]PECIF[facility] SERV [facility] 69825 CORONARY 10-11-2014 [facility] [place] MEDICAL G CORONARY ARTERY 7851 PALPITATION 10-11-2014 [facility] MEDICAL G 49266 PRECORDIAL 10-11-2014 [facility] MEDICAL G 4610 ACUTE 10-01-2014 [facility] MAXILLARY [place] SINUSITIS 4720 CHRONIC 10-01-2014 [facility] RHINITIS YOJANA 7881 DYSURIA 10-01-2014 IS[facility] Y[place]NA 45152 SHORTNESS 09-18-2014 [place] [facility] BREATH [facility] IM[facility]ING ASS 4139 OTHER AND 09-12-2014 [facility] UNSPECIFIED [facility] ANGINA INC PECTORIS 5758 OTHER 09-12-2014 [facility] SPECIFIED [facility] DISORDER OF INC GALLBLADDER 72300 OTHER 09-12-2014 [facility] CONVULSIONS [facility] INC 56295 OTHER CHEST 09-12-2014 [facility] EMERGENCY PHYS V140 PERSONAL 09-12-2014 [facility] HISTORY OF [facility] ALLERGY TO [facility] P PENICILLIN V148 PERSONAL 09-12-2014 [facility] HISTORY [facility] SPE[facility] MEDIC[facility] AGTS V1582 PERS HX 09-12-2014 [facility] TOBACCO USE [facility] PRESENTING INC HAZARDS HE[facility] V719 OBSERVATION 09-12-2014 [place] FOR MEDICAL UNSPECIFIED IMAGING ASS SUSPECTED CONDITION 23843 UNSPEC 08-28-2014 [facility] DISORDERS YOJANA BURSAE&TEND ONS SHOULDER REGION 99147 CONTUSION 08-28-2014 [facility] OF SHOULDER [place]NA REGION [...] MYOSITIS 7827 SPONTANEOUS 08-06-2014 [facility] ECCHYMOSES YO[facility]NA 32308 DIVERTICULI 07-24-2014 [facility] TIS OF [place] COLON 7243 SCIATICA 07-16-2014 [facility] HOSP INC 5693 HEMORRHAGE 05-21-2014 [facility] OF RECTUM [place]NA AND ANUS 7802 SYNCOPE AND 05-21-2014 [facility] COLLAPSE [place]NA 5589 OTH&UNSPEC 05-09-2014 [facility] NONINFECTIO [facility] P GASTROENTER ITIS&COLITI S 69259 NAUSEA WITH 05-09-2014 [facility] VOMITING [facility] P E9390 ANTIDEPTSSN 05-09-2014 [facility] CAUS [facility] P EFFECT THERAPEUTIC USE 54354 OTHER 05-08-2014 [facility] SPECIFIED N EMERGENCY CARDIAC PHYS DYSRHYTHMIA S 5789 UNSPECIFIED 05-08-2014 [facility] HEMORRHAGE Y[place]NA OF GASTROINTES TINAL TRACT 7852 UNDIAGNOSED 05-08-2014 [place] [facility] CARDIAC SERV MURMURS FOUNDATIO 496 CHRONIC 03-06-2014 [place] AIRWAY MEDICAL OBSTRUCTION IMAGING ASS NEC 5110 PLEURISY 03-06-2014 [facility] WITHOUT [place]NA MENTION EFFUS/CURRE NT TB 7197 DIFFICULTY 03-06-2014 [place] IN WALKING MEDICAL IMAGING ASS 33360 CONTUSION 03-06-2014 [facility] OF FOOT YOJANA 8488 OTHER 02-26-2014 [facility] SPECIFIED N EMERGENCY SITES OF PHYS SPRAINS AND STRAINS V141 PERSONAL 02-26-2014 [facility] MEM HOSP ALLERGY INC OTHER ANTIBIOTIC AGENT 49571 UNSPECIFIED 01-26-2014 [facility] VIRAL N EMERGENCY INFECTION PHYS IN CCE & UNS SITE 7245 UNSPECIFIED 01-26-2014 [facility] BACKACHE N EMERGENCY PHYS 0091 COLITIS 01-04-2014 [facility] ENTERIT&GAS HOME TROENTERIT MEDICAL INF ORIGIN EQUIPME 436 ACUTE BUT 01-04-2014 [facility] ILL-DEFINED HOME MEDICAL CEREBROVASC EQUIPME ULAR DISEASE 7231 CERVICALGIA 10-24-2013 [facility] HOSP INC 3674 PRESBYOPIA 07-03-2013 [facility] V431 LENS 07-03-2013 [place] REPLACED BY EYE OTHER INSTITUTE MEANS 7224 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-30-2013 [facility] [place] 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 96769 MACULAR 04-04-2013 [facility] DEGENERATIO DON N OF RETINA UNSPECIFIED 73459 STRABISMIC 03-22-2013 [place] [facility] AMBLYOPIA SERV FOUNDATIO 46614 OTHER 03-22-2013 [place] [facility] VITREOUS SERV OPACITIES FOUNDATIO 8052 CLOS FX 02-27-2013 [facility] DORS DON VERTEBRA W/O MENTION SP CORD INJURY 77053 LEUKOCYTOSI 02-23-2013 [facility] EMERGENCY UNSPECIFIED SERVICES V5878 AFTERCARE 02-23-2013 [place] FOLLOW EMERGENCY SURGERY SERVICES MUSCULOSKEL SYSTEM NEC 41909 ACUTE PAIN 02-22-2013 [place] DUE TO EMERGENCY TRAUMA SERVICES 26595 PATHOLOGIC 02-22-2013 [place] FRACTURE OF ANESTHESIA VERTEBRAE GROUP PS V7283 OTHER 02-21-2013 [facility] [place] SPECIFIED RADIOLOGY PRE-OPERATI VE EXAMINATION 94093 DISPLCMT 02-20-2013 [place] LUMBAR MEDICAL INTERVERT IMAGING ASS DISC W/O MYELOPATHY 24714 SPINAL STEN 02-20-2013 [place] LUMB REG MEDICAL W/O IMAGING ASS NEUROGENIC CLAUDICATIO N 805.2 805.2 FX 02-20-2013 [facility] DORSAL [facility] OSE E849.0 E849.0 02-20-2013 [facility] ACCIDENT IN [facility] E885.9 E885.9 FALL 02-20-2013 [facility] FROM [facility] SLIPPING, Hospital TRIPPING, OR STUMBLING NEC E8888 OTHER FALL 02-20-2013 [facility] 6259 UNSPEC 02-15-2013 [facility]ING ASS W/FEMALE GENITAL ORGANS 7840 HEADACHE 02-15-2013 [facility] 8470 NECK SPRAIN 02-15-2013 [place] AND STRAIN EMERGENCY SERVICES 8472 LUMBAR 02-15-2013 [place] SPRAIN AND EMERGENCY STRAIN SERVICES 8500 CONCUSSION 02-15-2013 [place] WITH NO EMERGENCY LOSS OF SERVICES CONSCIOUSNE SS 9222 CONTUSION 02-15-2013 [place] OF EMERGENCY ABDOMINAL SERVICES WALL 37838 CONTUSION 02-15-2013 [facility] OF HIP [facility] INC 12484 HEAD 02-15-2013 [place] INJURY, MEDICAL UNSPECIFIED IMAGING ASS V4364 HIP JOINT 02-15-2013 [place] REPLACEMENT MEDICAL BY OTHER IMAGING ASS MEANS 4659 ACUTE URIS 02-13-2013 [facility] OF DON UNSPECIFIED SITE 7804 DIZZINESS 02-13-2013 [facility] AND DON GIDDINESS 68904 PAIN IN 01-18-2013 [facility] JOINT, MEM HOS[facility] MULTIPLE INC SITES 39603 PAIN IN 01-17-2013 [facility] JOINT, DON LOWER LEG 9597 INJURY 01-17-2013 [facility] OTHER&UNSPE DON CIFIED KNEE LEG ANKLE&FOOT 05201 UNSPECIFIED 12-27-2012 [place] [address] METHICILLIN 12-23-2012 [facility] RESISTANT [facility] STAPHYLOCOC INC CUS AUREUS 61246 OTHER 12-23-2012 [facility] DISEASES OF [facility]OS[facility] NASAL INC CAVITY AND SINUSES 07221 NASAL 12-06-2012 [facility] MUCOSITIS DON ULCERATIVE 7078 CHRONIC 12-06-2012 [facility] ULCER OF MEM HOSP OTHER INC SPECIFIED SITE 3804 IMPACTED 08-03-2012 [place] 35940 CHRONIC 08-03-2012 [facility] FATIGUE DON SYNDROME 40537 OTHER 06-22-2012 [facility] CHRONIC DON PAIN 7873 FLATULENCE 06-17-2012 [facility] ERUCTATION DON AND GAS PAIN 85854 OTHER 06-03-2012 [facility] SPECIFIED DON TYPES OF CYSTITIS 4293 CARDIOMEGAL 05-14-2012 [place] Y MEDICAL IM[facility]ING ASS 83267 NONSPECIFIC 05-14-2012 [facility] EMERGENCY ELECTROCARD SERVICES IOGRAM V1090 PERSONAL 05-14-2012 [place] HISTORY MEDICAL UNSPECIFIED IMAGING ASS MALIGNANT NEOPLASM V711 OBSERVATION 05-14-2012 [place] SUSPECTED [facility] MALIGNANT NEOPLASM 19578 OTHER 04-28-2012 [facility]NANT [facility] SPLEEN 3898 OTHER 02-17-2012 [facility] SPECIFIED DON FORMS OF HEARING LOSS 15813 GASTROJEJ 02-17-2012 [facility] ULCR UNS DON ACUT/CHRN W/O HEMOR PERF/OBST 47862 PAIN IN 01-06-2012 [facility] UNSPECIFIED 6160 CERVICITIS 12-16-2011 [place]OCERVICI [facility] TIS 7993 ACQUIRED 12-16-2011 [facility] ATR[facility] OVARY AND IMAG[facility] FALLOPIAN TUBE 6219 UNSPECIFIED 12-16-2011 [place] DISORDER [facility]ICAL OF UTERUS [facility] 69087 OSTEOARTHRO 12-11-2011 [facility] S INVLV MX DON SITES BUT NOT SPEC GEN 57593 HEMATURIA 11-30-2011 [facility] UNSPECIFIED DON 59586 OTHER 11-30-2011 [facility] SPECIFIED DON DISORDERS OF URINARY TRACT 25807 UNSPECIFIED 10-19-2011 [facility] OTALGIA DON 37669 MUSCLE 10-19-2011 [facility] WEAKNESS DON (GENERALIZE D) 79806 DIVERTICULO 07-22-2011 [facility] SIS OF DON COLON 1104 DERMATOPHYT 07-10-2011 [facility] OSIS OF FOOT 9168 OTH&UNS SUP 07-07-2011 [facility] INJR HIP DON THI LEG&ANK W/O MENTION INF 9190 ABRASION/FR 06-26-2011 [facility]Y OTH MX&UNS SERVICES SITE W/O INF 5950 ACUTE 05-28-2011 NEW CYSTITIS [facility] PSC 6929 CONTACT 05-22-2011 [facility] DERMATITIS& OTHER ECZEMA DUE UNSPEC CAUSE 7011 ACQUIRED 05-22-2011 [facility] KERATODERMA 53880 OTHER 04-20-2011 [facility] SPECIFIED DON CIRCULATORY SYSTEM DISORDERS 98107 CONTUSION 04-20-2011 [facility] MULTIPLE DON SITES SHOULDER&UP PER ARM 5952 OTHER 02-05-2011 [facility] CYSTITIS [facility] P 1129 CANDIDIASIS 01-07-2011 [facility] OF DON UNSPECIFIED SITE 4280 CONGESTIVE 01-07-2011 [facility] HEART DON FAILURE UNSPECIFIED 2768 HYPOPOTASSE 12-31-2010 [facility] 8910 OPEN WOUND 10-22-2010 [facility] KNEE DON LEG&ANK WITHOUT MENTION COMP V5832 ENCOUNTER 10-22-2010 [facility] FOR REMOVAL DON OF SUTURES 17078 PHACOLYTIC 08-06-2010 [facility] 4618 OTHER ACUTE 07-29-2010 [facility] SINUSITIS DON 1880 MALIGNANT 06-26-2010 [facility] NEOPLASM OF H UROLOGY [facility] URINARY BLADDER 09854 SPASM OF 06-06-2010 [facility] MUSCLE DON 09353 DEGEN 05-04-2010 [facility] LUMBAR/LUMB EMERGENCY [facility] [employer] RAL DISC OTHER MALIG 04-22-2010 [place] [facility] [place] [facility] MULTIPLE SITES V6709 FOLLOW-UP 01-17-2010 [facility]THO EXAMINATION AND HAND FOLLOWING SURGEONS OTHER [facility] SURGERY 6256 FEMALE 01-13-2010 [facility], STRESS DON R INCONTINENC E V7651 SPECIAL 01-13-2010 [facility], SCREENING DON R FOR MALIGNANT NEOPLASMS COLON 1629 MALIGNANT 09-09-2009 [place] [facility] SITE 4148 OTHER SPEC 08-30-2009 [facility], FORMS DON R CHRONIC ISCHEMIC HEART DISEASE 8208 CLOSED 08-30-2009 [facility], FRACTURE DON R UNSPECIFIED PART NECK FEMUR 41210 POSTPROCEDU 08-21-2009 [facility] PROF SERV 38135 OTHER 08-20-2009 PATHOLOGY & CLOSED CYTOLOGY TRANSCERVIC LAB AL FRACTURE OF FEMUR 68698 INF DUE OTH 08-19-2009 [facility]-NEGATIVE INC ORGANISMS CCE & UNS SITE 46686 ABDOMINAL 08-19-2009 [facility] PAIN OTHER EMERGENCY SPECIFIED SERVICES [facility] 85280 CLOSED 08-19-2009 [facility] OF HIP SERVICE UNSPECIFIED SITE 9596 INJURY 08-19-2009 [facility] OTHER AND AMBULANCE UNSPECIFIED SERVICE HIP AND THIGH E8859 FALL FROM 08-19-2009 [place] OTHER EMERGENCY SLIPPING SERVICES TRIPPING OR ASSOCIATES STUMBLING 61225 UNSPECIFIED 08-14-2009 [facility]ACITY F[facility]AT[facility] V0382 NEED PROPH 07-31-2009 [facility], VACCINATION DON R AGAINST STREP PNEUMONE 50517 SPRAIN AND 06-10-2009 [facility], STRAIN OF DON R UNSPECIFIED SITE OF WRIST 14388 UNSPECIFIED 06-10-2009 [facility], SITE OF DON R ANKLE SPRAIN AND STRAIN E8490 PLACE OF 06-07-2009 [place] [facility] E8844 ACCIDENTAL 06-07-2009 [place] FALL FROM [facility]ED [facility] 64834 SECONDARY 09-19-2008 [facility] EDEMA FOUNDATIO 46246 SPONDYLOSIS 08-22-2008 NEW UNSPEC [place] [facility] PSC MENTION MYELOPATHY V1072 PERSONAL 08-22-2008 NEW HISTORY OF [place] [facility] P[facility] DISEASE 41020 ATRIAL 07-01-2008 [facility] N 16400 ABDOMINAL/P 07-01-2008 [facility] SWELLING MASS/LUMP UNSPEC SITE 66615 UNSPECIFIED 03-02-2008 ARAMBULA, DON R OSTEOPOROSI S [...] er -A 2 CE Ac TA ti ND ve NO PH EN 5- 32 5 [...] SQUARE METERS Comment: If this patient is -Chilean, then multiply the Comment: result by 1.210. [...] Procedure DOS Code Location Performer Comment BLOOD [address] COUNT 7 [facility] COMPLETE PARTHA PARTHA AUTO&AUTO DIFRNTL WBC COLLECTIO 43218 [facility] ST. N VENOUS 7 [facility] BLOOD PARTHA PARTHA VENIPUNCT URE URNLS DIP [address] 7 [facility] STICK/TAB PARTHA PARTHA LET REAGENT AUTO MICROSCOP Y RADEX [address] [facility]A PARTHA VIEWS ECG [address] ROUTINE 7 [facility] ECG PARTHA PARTHA W/LEAST 12 LDS TRCG ONLY W/O I&R CULTURE [address] BACTERIAL 7 [facility] PARTHA PARTHA QUANTTATI VE COLONY COUNT URINE BASIC [address] METABOLIC 7 [facility] PANEL [place] [address] HEAD/BRAI 7 [facility] N W/O PARTHA PARTHA CONTRAST MATERIAL RADIOLOGI [address] [facility] C 7 [facility] EXAMINATI PARTHA PARTHA ON CHEST SINGLE VIEW FRONTAL BASIC 55069 [facility] PANEL INC INC CALCIUM TOTAL BASIC 31782 [facility] METABOLIC 7 [facility] PANEL INC INC CALCIUM TOTAL BLOOD 72860 [facility] COUNT 7 [facility] COMPLETE INC INC AUTO&AUTO DIFRNTL WBC NEBULIZER E0570 MICHELLE MARTINEZ WITH 7 HOME HOME COMPRESSO MEDICAL MEDICAL R EQUIPME EQUIPME RADIOLOGI 22924 [facility] EXAM 7 MEDICAL CHEST 2 IMAGING VIEWS ASS FRONTAL&L ATERAL ECG 20140 [facility] ROUTINE 7 PHYSICIAN ECG S GROUP W/LEAST 12 LDS I&R ONLY ECG 64317 [facility] ROUTINE 7 [facility] ECG INC INC W/LEAST 12 LDS TRCG ONLY W/O I&R INTERROGA 54300 [facility] TION EVAL 7 PHYSICIAN REMOTE S GROUP </90 D 1/2/ARTISAN PLASTERER LEAD PM ECG 01592 [facility] ROUTINE 7 PHYSICIAN ECG S GROUP W/LEAST 12 LDS I&R ONLY ECG 88035 [facility] ROUTINE 7 [facility] ECG INC INC W/LEAST 12 LDS TRCG ONLY W/O I&R DUP-SCAN 63134 [place] [facility] XTR VEINS 7 MEDICAL IMAGING UNILATERA ASS L/LIMITED STUDY BASIC 18511 OMARIBG SALCIDO METABOLIC 7 [facility] PANEL INC INC CALCIUM TOTAL NONINVASI 78528 OMARI SALCIDO VE 7 [facility] EAR/PULSE INC INC OXIMETRY SINGLE DETER BLOOD 78383 OMARI SALCIDO COUNT 7 [facility] COMPLETE INC INC AUTO&AUTO DIFRNTL WBC COLLECTIO 76349 OMARI CALLEON N VENOUS 7 [facility] BLOOD INC INC VENIPUNCT URE HOSPITAL G0378 OMARI SALCIDO OBSERVATI 7 [facility] ON INC INC SERVICE PER HOUR HOSP[facility] G0378 OMARI OMARI OBSERVATI 7 [facility] ON INC INC SERVICE PER HOUR LEAD C1898 OMARI CALLEON PACEMKR 7 [facility] OTH THAN INC INC TRNS VDD SINGLE PASS ANES 98538 [facility] PERMANENT 7 ANESTH OF THE TRANSVENO BLUE US PACEMAKER INSERTION PACEMAKER C1785 OMARI OMARI DUAL 7 [facility] CHAMBER INC INC RATE-RESP ONSIVE BLOOD 46328 OMARI OMARI COUNT 7 [facility] COMPLETE INC INC AUTO&AUTO DIFRNTL WBC ECG 25999 OMARI SALCIDO ROUTINE 7 [facility] ECG INC INC W/LEAST 12 LDS TRCG ONLY W/O I&R PRESSURIZ 14717 OMARI SALCIDO ED/NONPRE 7 [facility] SSURIZED [place] [address] OMARI SALCIDO INFUSION 7 [facility] THERAPY/P INC INC ROPHYLAXI S /DX 1ST TO 1 HR THERAPEUT 97590 OMARI SALCIDO IC 7 [facility] INJECTION INC INC IV PUSH EACH NEW DRUG ECG 14145 [facility] RIKI ROUTINE 7 PHYSICIAN ECG S GROUP W/LEAST 12 LDS I&R ONLY RADIOLOGI 61957 OMARI SALCIDO C 7 [facility] EXAMINATI INC INC ON CHEST SINGLE VIEW FRONTAL BASIC 44122 OMARI SALCIDO METABOLIC 7 [facility] [place] [address] OMARI SALCIDO NEW/RPLC 7 [facility] PRM INC INC PACEMAKER W/TRANSV ELTRD VENTR CT THORAX 63191 [facility] 7 MEDICAL W/CONTRAS IMAGING T ASS MATERIAL LOCM Q9967 OMARI SALCIDO [phone] 7 [facility] MG/ML INC INC IODINE CONCENTRA TION PER ML CREATININ 67027 OMAIR SALCIDO E BLOOD 7 [facility] [place] [address] OMARI SALCIDO UREA 7 [facility] NITROGEN INC INC QUANTITAT RIGO COLLECTIO 79833 OMARI OMARI N VENOUS 7 [facility] BLOOD INC INC VENIPUNCT URE ECG 93921 OMARI SALCIDO ROUTINE 7 [facility] ECG INC INC W/LEAST 12 LDS TRCG ONLY W/O I&R ECG 58610 [facility] RIKI ROUTINE 7 PHYSICIAN ECG S GROUP W/LEAST 12 LDS I&R ONLY CV STRS 28057 OMARI SALCIDO TST 7 [facility] XERS&/OR INC INC RX CONT ECG TRCG ONLY INJECTION J2785 OMARI SALCIDO 7 [facility] REGADENOS INC INC ON 0.1 MG TECHNETIU A9502 OMARI Hernandez TC-99M 7 [facility] TETROFOSM INC INC IN DX PER STUDY DOSE MYOCARDIA 56285 OMARI SALCIDO L SPECT 7 [facility] MULTIPLE INC INC STUDIES ECG 15332 OMARI SALCIDO ROUTINE 7 [facility] ECG INC INC W/LEAST 12 LDS TRCG ONLY W/O I&R ECG 43300 OMARI SALCIDO ROUTINE 7 [facility] ECG INC INC W/LEAST 12 LDS TRCG ONLY W/O I&R XTRNL ECG 17718 OMARI SALCIDO & 48 HR 7 [facility] RECORDING INC INC ECG 96527 [facility] RIKI ROUTINE 7 PHYSICIAN ECG S GROUP W/LEAST 12 LDS I&R ONLY ECHO 77028 OMARI SALCIDO TTHRC R-T 7 [facility] 2D INC INC W/WOM-MOD E COMPL SPEC&COLR D ECG 73524 [facility] RIKI ROUTINE 7 PHYSICIAN ECG S GROUP W/LEAST 12 LDS I&R ONLY ECG 92792 OMARI SALCIDO ROUTINE 7 [facility] ECG INC INC W/LEAST 12 LDS TRCG ONLY W/O I&R ECG 56625 OMARI SALCIDO ROUTINE 7 [facility] ECG INC INC W/LEAST 12 LDS TRCG ONLY W/O I&R ECG 56060 OMARI GUEVARA JR ROUTINE 7 [facility] W/LEAST P 12 LDS I&R ONLY RADIOLOGI 19621 OMARI SALCIDO C EXAM 7 [facility] CHEST 2 INC INC VIEWS FRONTAL&L ATERAL RADEX 75743 [facility] SPINE 7 MEDICAL CERVICAL IMAGING 4 OR 5 ASS VIEWS BASIC 74401 OMARI SALCIDO METABOLIC 7 [facility] PANEL INC INC CALCIUM TOTAL BLOOD 46630 OMARI SALCIDO COUNT 7 [facility] COMPLETE INC INC AUTO&AUTO DIFRNTL WBC CT LOWER 40531 [facility] EXTREMITY 7 MEDICAL W/O IMAGING CONTRAST ASS MATERIAL CT PELVIS 11476 OMARI SALCIDO W/O 7 [facility] CONTRAST INC INC MATERIAL INJECTION J1100 ISMAEL GUEVARA JR 7 DEXAMETHO SONE SODIUM PHOSPHATE 1 MG COMPRE 66533 [place] EAR SIEM[facility] AUDIOMETR 6 NOSE AND CLARY Y THROAT THRESHOLD EVAL SP RECOGNIJ TYMPANOME 68848 [place] E[place] [facility] TRY 6 NOSE AND CLARY THROAT BASIC 77613 COMBINED COMBINED METABOLIC 6 PHYSICIAN PHYSICIAN PANEL S LA S LA CALCIUM TOTAL BLOOD 35067 COMBINED COMBINED COUNT 6 PHYSICIAN PHYSICIAN COMPLETE S LA S LA AUTO&AUTO DIFRNTL WBC SMR PRIM 45483 OMARI SALCIDO SRC 6 [facility] GRAM/GIEM INC INC SA STAIN BCT FUN[place] [address] OMARI SALCIDO GUIDANCE 6 [facility] NEEDLE INC INC PLACEMENT IMG S&I CYTP EVAL 91352 OMARI SALCIDO FINE 6 [facility] NEEDLE INC INC ASPIRATE INTERP & RE[place] [address] OMARI SALCIDO SURG 6 [facility] PATHOLOGY INC INC GROSS&SAJAN ROSCOPIC EXAM CELL 76834 OMRAI SALCIDO COUNT 6 [facility] MISC BODY INC INC FLUIDS W/DIFFERE NTIAL COUNT BIOPSY 81272 OMARI SALCIDO SOFT 6 [facility] TISSUE INC INC PELVIS&HI P AREA SUPERFICI AL ARTHROCEN 28148 [facility] S[facility]ANO TESIS 6 MEDICAL LATRELL ASPIR&/IN IMAGING J MAJOR ASS JT/[place] W/[place] [address] OMARI SALCIDO EXTREMITY 6 [facility] NON-VASC INC INC REAL-TIME IMG LMTD CUL BACT 04842 OMARI SALCIDO XCPT 6 [facility] URINE INC INC BLOOD/STO OL AEROBIC ISOL RADEX HIP 86739 [place] [facility] ALL 6 MEDICAL UNILATERA IMAGING L WITH ASS PELVIS 1 VIEW GROUND A0425 [facility] PER SERVICE SERVICE STATUTE MILE AMBULANCE A0428 [facility] SERVICE 6 AMBULANCE AMBULANCE BLS SERVICE SERVICE NONEMERGE NCY TRANSPORT RADIOLOGI 44962 [place] ZACH C 6 MEDICAL LATRELL EXAMINATI IMAGING ON CHEST ASS SINGLE VIEW FRONTAL RADIOLOGI 17762 [place] [facility] 6 MEDICAL ANGELIKA EXAMINATI IMAGING ON CHEST ASS SINGLE VIEW FRONTAL REPLACEME 0DLE84P OMARI OMARI NT LT HIP 6 [facility] JOINT INC INC CERAMIC POLY SYNTH OPEN ECG 20515 OMARI ROGER ROUTINE 6 [facility] W/LEAST P 12 LDS I&R ONLY AMB A0427 [facility] SERVICE 6 AMBULANCE AMBULANCE ALS SERVICE SERVICE EMERGENCY TRANSPORT LEVEL 1 GROUND A0425 [facility] MILEAGE 6 AMBULANCE AMBULANCE PER SERVICE SERVICE STATUTE MILE RADEX HIP 57633 [facility] MEDICAL ANGELIKA UNILATERA IMAGING L WITH ASS PELVIS 2-3 VIEWS ANESTHESI 22191 [facility] OPEN 6 ANESTH RAMO PROCEDURE OF THE S UPPER BLUE 2/3 FEMUR NOS RADIOLOGI 30782 [facility] C 6 MEDICAL ANGELIKA EXAMINATI IMAGING ON FEMUR ASS MINIMUM 2 VIEWS OPTX FEM 61746 [facility] PETTEY FX PROX 6 PHYSICIAN [place] NCK S GROUP INT FIXJ/PROS TC RPLCMT RADIOLOGI 86898 [facility] ALL C 6 MEDICAL EXAMINATI IMAGING ON CHEST ASS SINGLE VIEW FRONTAL ANES 22098 [facility] LOWER 6 ANESTH SHE INTESTINE OF THE BLUE ENDOSCOPY DISTAL DUODENUM INJECTION J1100 ISMAEL GUEVARA JR 6 [place] DWI DEXAMETHO SONE SOD[place] [address] [place] [address] [facility] ALL ABDOMEN & 6 MEDICAL PELVIS IMAGING W/O ASS CONTRAST MATERIAL URNLS DIP 86425 ISMAEL GUEVARA JR 6 [place] DWI STICK/TAB LET RGNT NON-AUTO W/O MICRSCP INJECTION J1030 ISMAEL GUEVARA JR 6 [place] DWI METHYLPRE DNISOLONE ACETATE 40 MG RADIOLOGI 34336 [facility] C EXAM 6 MEDICAL ANGELIKA CHEST 2 IMAGING VIEWS ASS FRONTAL&L ATERAL BASIC 42411 OMARI SALCIDO METABOLIC 6 [facility] PANEL INC INC CALCIUM TOTAL COLLECTIO 77355 OMRAI SALCIDO N VENOUS 6 [facility] BLOOD INC INC VENIPUNCT URE BLOOD 21021 OMARI SALCIDO COUNT 6 [facility] COMPLETE INC INC AUTO&AUTO DIFRNTL WBC BLOOD 58326 COMBINED COMBINED COUNT 5 PHYSICIAN PHYSICIAN COMPLETE S LA S LA AUTO&AUTO DIFRNTL WBC CYANOCOBA 35623 COMBINED COMBINED JEWEL 5 PHYSICIAN PHYSICIAN VITAMIN S LA S LA B-12 BASIC 17931 COMBINED COMBINED METABOLIC 5 PHYSICIAN PHYSICIAN PANEL S LA S LA CALCIUM TOTAL INFLUENZA Q2038 ISMAEL GUEVARA JR VACC 5 [place] DWI SPLIT VIRUS 3 YRS & > IM FLUZONE ADMINISTR G0008 ISMAEL GUEVARA JR ATION OF 5 [place] DWI INFLUENZA VIRUS VACCINE URNLS DIP 98142 ISMAEL GUEVARA JR 5 [place] DWI STICK/TAB LET RGNT NON-AUTO W/O MICRSCP RADEX HIP 79319 [facility] 5 MEDICAL UNILATERA IMAGING L 1 VIEW ASS RADEX HIP 10731 OMARI SALCIDO 5 [facility] UNILATERA INC INC L COMPLETE MINIMUM 2 VIEWS COLLECTIO 89342 OMARI SALCIDO N VENOUS 5 [facility] BLOOD INC INC VENIPUNCT URE BLOOD 22544 OMARI SALCIDO COUNT 5 [facility] COMPLETE INC INC AUTO&AUTO DIFRNTL WBC BASIC 38743 OMARI SALCIDO METABOLIC 5 [facility] PANEL INC INC CALCIUM TOTAL GROUND A0425 NARINDER NARINDER MILEAGE 5 CO CO PER AMBULANCE AMBULANCE STATUTE TAXIN TAXIN MILE AMB A0427 NARINDER NARINDER SERVICE 5 CO CO ALS AMBULANCE AMBULANCE EMERGENCY TAXIN TAXIN TRANSPORT LEVEL 1 BASIC 08521 COMBINED COMBINED METABOLIC 5 PHYSICIAN PHYSICIAN PANEL S LA S LA CALCIUM TOTAL BLOOD 13701 COMBINED COMBINED COUNT 5 PHYSICIAN PHYSICIAN COMPLETE S LA S LA AUTO&AUTO DIFRNTL WBC COLLECTIO 82281 ISMAEL GUEVARA JR N VENOUS 5 [place] DWI BLOOD VENIPUNCT URE DUP-SCAN 73353 [facility] ALL XTR VEINS 5 MEDICAL IMAGING UNILATERA ASS L/LIMITED STUDY OBSERVATI 94626 ISMAEL GUEVARA JR ON CARE 5 YOJA[place] DWI DISCHARGE MANAGEMEN T SBSQ 18309 ISMAEL GUEVARA JR OBSERVATI 5 YO[place] DWI ON CARE/[place] [address] [place] [address] [place] ALL HEAD/BRAI 5 MEDICAL N W/O IMAGING CONTRAST ASS MATERIAL RADIOLOGI 25085 [place] ALL C EXAM 5 MEDICAL CHEST 2 IMAGING VIEWS ASS FRONTAL&L ATERAL INITIAL 45896 ISMAEL GUEVARA JR OBSERVATI 5 [place] DWI ON CARE/DAY 50 MINUTES URNLS DIP 52260 COMBINED COMBINED 5 PHYSICIAN PHYSICIAN STICK/TAB S LA S LA LET REAGENT AUTO MICROSCOP Y THERAPEUT 06405 OMARI SALCIDO IC 5 [facility] PROPHYLAC INC INC TIC/DX INJECTION SUBQ/IM INJECTION J1335 OMARI SALCIDO 5 [facility] ERTAPENEM INC INC SODIUM 500 MG INJECTION J1100 ISMAEL GUEVARA JR 5 YO[place] DWI DEXAMETHO SONE SODIUM PHOSPHATE 1 MG CULTURE 85138 OMARI SALCIDO BCT 5 [facility] ISOL&PRSM INC INC PTV ID ISOLATE EA URINE CULTURE 98211 OMARI SALCIDO BACTERIAL 5 [facility] INC INC QUANTTATI VE COLONY COUNT URINE URNLS DIP 18310 ISMAEL GUEVARA JR 5 [place] DWI STICK/TAB LET RGNT NON-AUTO W/O MICRSCP SUSCEPTIB 83230 OMARI SALCIDO LTY STDY 5 [facility] ANTIMICRB INC INC IAL MICRO/AGA R DILUTJ BLOOD 86594 OMARI SALCIDO COUNT 5 [facility] HEMATOCRI INC INC T BASIC 34809 OMARI SALCIDO METABOLIC 5 [facility] PANEL INC INC CALCIUM TOTAL IADNA-DNA 33140 OMARI SALCIDO /RNA GI 5 [facility] PTHGN INC INC MULTIPLEX PROBE TQ 11-01 [place] [address] [facility] ABDOMEN & 5 MEDICAL LATRELL PELVIS IMAGING W/O ASS CONTRAST MATERIAL COLLECTIO 98854 OMARI SALCIDO N VENOUS 5 [facility] [place] [address] OMARI SALCIDO UREA 5 [facility] NITROGEN INC INC QUANTITAT RIGO CREATININ 67052 OMARI SALCIDO E BLOOD 5 [facility] INC INC CULTURE 70010 OMARI SALCIDO BACTERIAL 5 [facility] INC INC QUANTTATI VE COLONY COUNT URINE ANES 26587 [facility] GI 5 [facility] ENDOSCOPY ANESTHESI PROXIMAL A TO DUODENUM EGD 87093 LATTER DAY LATTER DAY TRANSORAL 5 PHYS SURG PHYS SURG BIOPSY CTR CTR SINGLE/MU LTIPLE SPECIAL 10910 [facility]IP[facility] MANUELA STAIN 5 EMMA & ORTEGA GROUP 1 DUBILIER MICROORGA NISMS I&[place] [address] [facility]IPPS MANUELA SURG 5 EMMA & ORTEGA PATHOLOGY DUBILIER GROSS&SAJAN ROSCOPIC EXAM OPHTH 71603 [facility] 5 EYE ORTEGA XM&EVAL INSTITUTE COMPRHNSV ESTAB PT 1/> DETERMINA 40821 [place] [facility] TION 5 [facility]YE [facility] E STATE FUNDUS 71550 [place] PHOTOGRAP 5 EYE [facility] HY INSTITUTE W/INTERPR ETATION & REPORT CULTURE 28477 OMARI SALCIDO BACTERIAL 5 [facility] INC INC QUANTTATI VE COLONY COUNT URINE CULTURE 89461 OMARI SALCIDO BCT 5 [facility] ISOL&PRSM INC INC PTV ID ISOLATE EA URINE URNLS DIP 57855 ISMAEL GUEVARA JR 5 [place] DWI STICK/TAB LET RGNT NON-AUTO W/O MICRSCP SUSCEPTIB 94704 OMARI SALCIDO LTY STDY 5 [facility] ANTIMICRB INC INC IAL MICRO/AGA R DILUTJ THERAPEUT 16503 ISMAEL GUEVARA JR IC 5 [place] DWI PROPHYLAC TIC/DX INJECTION SUBQ/IM INJECTION J1040 ISMAEL GUEVARA JR 5 [place] DWI METHYLPRE DNISOLONE ACETATE 80 MG RADIOLOGI 17158 [place] ZACH C 5 MEDICAL LATRELL EXAMINATI IMAGING ON CHEST ASS SINGLE VIEW FRONTAL THER 16824 OMARI SALCIDO PROPH/DX 5 [facility] NJX IV INC INC PUSH SINGLE/1S T SBST/DRUG INJECTION J2405 OMARI SALCIDO 5 [facility] ONDANSETR INC INC ON HCL PER 1 MG CULTURE 92606 OMARI SALCIDO BACTERIAL 5 [facility] BLOOD INC INC AEROBIC W/ID ISOLATES IAADI 85640 OMARI SALCIDO INFLUENZA 5 [facility] B VIRUS INC INC IAADI 07957 OMARI SALCIDO INFFLUENZ 5 [facility] A A VIRUS INC INC BLOOD 35234 OMARI SALCIDO COUNT 5 [facility] COMPLETE INC INC AUTO&AUTO DIFRNTL WBC COMPREHEN 56957 OMARI SALCIDO SIVE 5 [facility] METABOLIC INC INC PANEL URNLS DIP 43136 OMARI SALCIDO 5 [facility] STICK/TAB INC INC LET REAGENT AUTO MICROSCOP Y URNLS DIP 42142 ISMAEL GUEVARA JR 5 [place] DWI STICK/TAB LET RGNT NON-AUTO W/O MICRSCP CULTURE 65681 OMARI SALCIDO BACTERIAL 5 [facility] INC INC QUANTTATI VE COLONY COUNT URINE INJECTION J1100 ISMAEL GUEVARA 4 YOJANA YOJANA DEXAMETHO SONE SODIUM PHOSPHATE 1 MG THERAPEUT 51832 ISMAEL GUEVARA JR IC 4 [place] DWI PROPHYLAC TIC/DX INJECTION SUBQ/IM THERAPEUT 49321 ISMAEL GUEVARA JR IC 4 [place] DWI PROPHYLAC TIC/DX INJECTION SUBQ/IM INJECTION J1030 ISMAEL GUEVARA JR 4 [place] DWI METHYLPRE DNISOLONE ACETATE 40 MG ECHO 47904 OMARI SALCIDO TTHRC R-T 4 [facility] 2D INC INC W/WOM-MOD E COMPL SPEC&COLR D THERAPEUT 43581 ISMAEL GUEVARA JR IC 4 [place] DWI PROPHYLAC TIC/DX INJECTION SUBQ/IM INJECTION J1100 ISMAEL GUEVARA JR 4 [place] DWI DEXAMETHO SONE SODIUM PHOSPHATE 1 MG URNLS DIP 18236 ISMAEL GUEVARA JR 4 [place] DWI STICK/TAB LET RGNT NON-AUTO W/O MICRSCP MYOCARDIA 65103 OMARI [place] SPECT 4 [facility] MULTIPLE INC INC STUDIES TECHNETIU A9500 OMARI SALCIDO M TC-99M 4 [facility]OSP SESTAMIBI INC INC DX PER STUDY DOSE CV STRS 66726 OMARI GUEVARA JR TST 4 [facility] XERS&/OR HOSPITAL RX CONT P ECG I&R ONLY CV STRS 95334 OMARI SALCIDO TST 4 [facility] XERS&/OR INC INC RX CONT ECG TRCG ONLY INJECTION J2785 OMARI SALCIDO 4 [facility] HOSP REGADENOS INC INC ON 0.1 MG ECG 61640 OMARI GUEVARA JR ROUTINE 4 [facility] W/LEAST P 12 LDS I&R ONLY RADIOLOGI 91427 LORAINE Alcala 4 [facility] EXAMINATI IMAGING ON CHEST ASS SINGLE VIEW FRONTAL ECG 24328 OMARI SALCIDO ROUTINE 4 [facility] ECG INC INC W/LEAST 12 LDS TRCG ONLY W/O I&R COMPREHEN 23680 OMARI SALCIDO SIVE 4 [facility] METABOLIC INC INC PANEL BLOOD 50207 OMARI SALCIDO COUNT 4 [facility] COMPLETE INC INC AUTO&AUTO DIFRNTL WBC CREATINE 70028 OMARI SALCIDO KINASE MB 4 [facility] [place] [address] OMARI SALCIDO THYROID 4 [facility] STIMULATI [place] [address] OMARI SALCIDO TROPONIN 4 [facility] QUANTITAT INC INC RIGO CREATINE 50111 OMARI SALCIDO KINASE 4 [facility] TOTAL INC INC INJECTION J1040 ISMAEL GUEVARA JR 4 [facility] METHYLPRE DNISOLONE ACETATE 80 MG INFLUENZA Q2038 ISMAEL GUEVARA JR VACC 4 [facility] SPLIT VIRUS 3 YRS & > IM FLUZONE ARTHROCEN 95036 ISMAEL HAASIS 4 [facility] ASPIR&/IN J INTERM JT/BURS W/O US RADEX [address] [facility] SHOULDER 4 JESSE MOLINA COMPLETE PARTHA PARTHA MINIMUM [address] IN[address] 4 JESSE MOLINA ONDANSETR PARTHA PARTHA ON HCL PER [address] IC 4 JESSE MOLINA PROPHYLAC PARTHA PARTHA TIC/DX INJECTION SUBQ/IM INJECTION J11[address] [facility] 4 JESSE MOLINA HYDROMORP PARTHA PARTHA ASAEL UP TO 4 MG BASIC 28249 COMBINED COMBINED METABOLIC 4 PHYSICIAN PHYSICIAN PANEL S LA S LA CALCIUM TOTAL COLLECTIO 05822 ISMAEL GUEVARA JR N VENOUS 4 [facility] BLOOD VENIPUNCT URE COLLECTIO 73193 ISMAEL GUEVARA JR N VENOUS 4 [facility] BLOOD VENIPUNCT URE CREATINE 34537 OMARI SALCIDO KINASE 4 [facility] TOTAL INC INC BLOOD 17097 OMARI SALCIDO COUNT 4 [facility] COMPLETE INC INC AUTO&AUTO DIFRNTL WBC URNLS DIP 26794 ISMAEL GUEVARA JR 4 [place] [facility] STICK/TAB LET RGNT NON-AUTO W/O MICRSCP BASIC 69721 OMARI SALCIDO METABOLIC 4 [facility] PANEL INC INC CALCIUM TOTAL URNLS DIP 97700 ISMAEL GUEVARA JR 4 [facility] [facility] STICK/TAB LET RGNT NON-AUTO W/O MICRSCP RADEX 73616 OMARI SALCIDO SPINE 4 [facility] LUMBOSACR INC INC AL MINIMUM 4 VIEWS URNLS DIP 30337 ISMAEL GUEVARA JR 4 [facility] [facility] STICK/TAB LET RGNT NON-AUTO W/O MICRSCP THERAPEUT 93562 ISMAEL GUEVARA JR IC 4 [facility] PROPHYLAC TIC/DX INJECTION SUBQ/IM CULTURE 28869 OMARI SALCIDO BACTERIAL 4 [facility] INC INC QUANTTATI VE COLONY COUNT URINE INJECTION J1040 ISMAEL GUEVARA JR 4 [facility] [facility] METHYLPRE DNISOLONE ACETATE 80 MG BASIC 52697 COMBINED COMBINED METABOLIC 4 PHYSICIAN PHYSICIAN PANEL S LA S LA CALCIUM TOTAL BLOOD 26641 COMBINED COMBINED COUNT 4 PHYSICIAN PHYSICIAN COMPLETE S LA S LA AUTO&AUTO DIFRNTL WBC COLLECTIO 59797 ISMAEL GUEVARA JR N VENOUS 4 [facility] BLOOD VENIPUNCT URE OBSERVATI 64546 ISMAEL GUEVARA JR ON CARE 4 [facility] DISCHARGE MANAGEMEN T SBSQ 08138 ISMAEL GUEVARA JR OBSERVATI 4 [facility] [facility] ON CARE/DAY 25 MINUTES ECG 97679 OMARI GUEVARA JR ROUTINE 4 [facility] ECG HOSPITAL W/LEAST P 12 LDS I&R ONLY ECG 72237 [facility] ROUTINE 4 [facility] ECG EMERGENCY W/LEAST PHYS 12 LDS I&R ONLY AMB A0427 [facility] SERVICE 4 AMBULANCE AMBULANCE ALS SERVICE SERVICE EMERGENCY TRANSPORT LEVEL 1 ECHO 72452 MERRY MARTINEZ [facility] R-T 4 MEDICAL EMELI 2D SERV W/WOM-MOD FOUNDATIO E COMPL SPEC&COLR D GROUND A0425 MICHEL PEARSON MILEAGE 4 AMBULANCE AMBULANCE PER SERVICE SERVICE STATUTE MILE INITIAL 71081 ISMAEL GUEVARA JR OBSERVATI 4 [facility] ON CARE/DAY 50 MINUTES URNLS DIP 20459 ISMAEL GUEVARA JR 4 [place] [facility] STICK/TAB LET RGNT NON-AUTO W/O MICRSCP PULMONARY 02103 LORAINE HIRSCHUTCHER 4 [facility] VENTILATI IMAGING ON & ASS PERFUSION IMAGING TECHNETIU A9540 OMARI Hernandez TC-99M 4 [facility] MAA DX INC INC STDY DOSE UP TO 10 MCI TECHNETIU A9567 OMARI Hernandez TC-99M 4 [facility] PENTETATE INC INC DX AEROSOL TO 75 MCI ECG 86455 MOARI SALCIDO ROUTINE 4 [facility] ECG INC INC W/LEAST 12 LDS TRCG ONLY W/O I&R RADEX 48141 LOARINE HIRSCHUTCHER FOOT 4 [facility] COMPLETE IMAGING MINIMUM 3 ASS VIEWS COLLECTIO 43309 OMARI Lee VENOUS 4 [facility] HOSP [place] [address] OMARI SALCIDO TROPONIN 4 [facility]P QUANTITAT INC INC RIGO CREATINE 07778 OMARI SALCIDO KINASE MB 4 [facility] FRACTION INC INC ONLY CREATINE 06933 OMARI SALCIDO KINASE 4 [facility] TOTAL INC INC FIBRIN 18855 OMARI SALCIDO DGRADJ 4 [facility]OSP PRODUCTS INC INC D-DIMER QUAL/SEMI NAYE BASIC 95070 OMARI SALCIDO METABOLIC 4 [facility]P PANEL INC INC CALCIUM TOTAL ECG 66878 OMARI GUEVARA JR ROUTINE 4 [facility] ECG HOSPITAL W/LEAST P 12 LDS I&R ONLY RADIOLOGI 25104 LORAINE SERRANO C EXAM 4 [facility] CHEST 2 IMAGING VIEWS ASS FRONTAL&L ATERAL RADIOLOGI 26647 LORAINE SERRANO C EXAM 4 [facility] CHEST 2 IMAGING VIEWS ASS FRONTAL&[place] [address] OMARIGB SALCIDO LIPASE 4 [facility] INC INC BLOOD 16531 OMARI SALCIDO COUNT 4 [facility] COMPLETE INC INC AUTO&AUTO DIFRNTL WBC URNLS DIP 23095 OMARI OMARI 4 [facility] STICK/TAB INC INC LET REAGENT AUTO MICROSCOP Y COMPREHEN 57295 OMARI SALCIDO SIVE 4 [facility] METABOLIC INC INC PANEL URNLS DIP 92878 OMARI SALCIDO 4 [facility] STICK/TAB INC INC LET REAGENT AUTO MICROSCOP Y IAADI 59381 OMARI SALCIDO INFFLUENZ 4 [facility] A A VIRUS INC INC IAADI 47681 OMARI SALCIDO INFLUENZA 4 [facility] B VIRUS INC INC STANDARD K0001 MICHELLE MICHELLE WHEELCHAI 4 [facility] EQUIPME EQUIPME STANDARD K0001 MICHELLE MICHELLE WHEELCHAI 4 HOME HOME [facility]ICAL MEDICAL EQUIPME EQUIPME CULTURE 71043 OMARI SALCIDO BACTERIAL 4 [facility] INC INC QUANTTATI VE COLONY COUNT URINE STANDARD K0001 MICHELLE MICHELLE WHEELCHAI 3 HOME HOME R MEDICAL MEDICAL EQUIPME EQUIPME BLOOD 47637 OMARI SALCIDO COUNT 3 [facility] COMPLETE INC INC AUTO&AUTO DIFRNTL WBC SEDIMENTA 53961 OMARI SALCIDO TION RATE 3 [facility] RBC INC INC NON-AUTOM ATED STANDARD K0001 MICHELLE MICHELLE WHEELCHAI 3 HOME HOME R MEDICAL MEDICAL EQUIPME EQUIPME STANDARD K0001 MICHELLE MICHELLE HERNANDEZCHAI 3 HOME HOME R MEDICAL MEDICAL EQUIPME EQUIPME STANDARD K0001 MICHELLE MICHELLE WHEELCHAI 3 HOME HOME R MEDICAL MEDICAL EQUIPME EQUIPME THERAPEUT 43984 ISMAEL GUEVARA JR IC 3 [place] DWI PROPHYLAC TIC/DX INJECTION SUBQ/IM INJECTION J1100 ISMAEL GUEVARA JR 3 [place] DWI DEXAMETHO SONE SODIUM PHOSPHATE 1 MG CULTURE 54409 OMARI SALCIDO BACTERIAL 3 [facility] INC INC QUANTTATI VE COLONY COUNT URINE URNLS DIP 21507 ISMAEL GUEVARA JR 3 [place] DWI STICK/TAB LET RGNT NON-AUTO W/O MICRSCP STANDARD K0001 MICHELLE MARTINEZ WHEELCHAI 3 HOME HOME R MEDICAL MEDICAL EQUIPME EQUIPME DETERMINA 19165 [place] [facility] T[facility] 40981 [place] [facility] MEDICAL 3 EYE [facility] XM&EVAL INSTITUTE COMPRE NEW PT 1/ VST STANDARD K0001 MICHELLE HERNANDEZCHAI 3 HOME HOME R MEDICAL MEDICAL EQUIPME EQUIPME RADEX 22622 [facility] SPINE 3 [place] CERVICAL ORTHOPAED 2 OR 3 [facility] VIEWS RADEX 45159 [facility] SPINE 3 [place] THORACIC ORTHOPAED 2 VIEWS [facility] COMPREHEN 39106 [facility] SIVE 3 [facility] METABOLIC LABORATO LABORATO PANEL LACTATE 04599 [facility] DEHYDROGE 3 CLINIC CLINIC NASE LDH LABORATO LABORATO BLOOD 34750 [facility] COUNT 3 [facility] COMPLETE LABORATO LABORATO AUTO&AUTO DIFRNTL WBC COLLECTIO 67993 [facility] N VENOUS 3 CLINIC CLINIC BLOOD LABORAT[place] [address] [facility] BLOOD/URI 3 [facility]IN[facility] C ACID LABORATO LABORATO STANDARD K0001 MICHELLE HERNANDEZCHAI 3 HOME HOME R MEDICAL MEDICAL EQUIPME EQUIPME INJECTION J1040 TYESHA ARAMBULA 3 DON DON METHYLPRE DNISOLONE ACETATE 80 MG STANDARD K0001 MICHELLE HERNANDEZCHAI 3 HOME HOME R MEDICAL MEDICAL EQUIPME EQUIPME OPHTH 43003 [facility] 3 MEDICAL JR ORTEGA XM&EVAL SERV COMPRHNSV FOUNDATIO ESTAB PT 1/> STANDARD K0001 MICHELLE HERNANDEZCHAI 3 HOME [facility] 3 EMERGENCY RAE IGN DAY SERVICES MANAGEMEN T 30 MIN/< ANESTHESI 56468 LORAINE HUNTER A PERQ 3 ANESTHESI [place] IMAGE A GROUP GUIDED PS SPINE THERAPEUT IC SBSQ 91558 [facility] 3 EMERGENCY RAE IGN CARE/DAY SERVICES 25 MINUTES INITIAL 09420 [facility] 3 N CARE/DAY CARDIOLOG 30 Y MINUTES MRI 10823 [facility] [place] [facility] MAT SPINAL 3 RADIOLOGY CANAL THORACIC W/O CONTRAST MATRL MRI 56364 [facility] [place] [facility] MAT SPINAL 3 RADIOLOGY CANAL LUMBAR W/O CONTRAST MATERIAL RADIOLOGI 01013 [facility] [place] [facility] MAT C 3 RADIOLOGY EXAMINATI ON CHEST SINGLE VIEW FRONTAL MRI 54999 [facility] 3 MEDICAL LATRELL CANAL IMAGING LUMBAR ASS W/O CONTRAST MATERIAL 3D 85731 [place] [facility] 3 MEDICAL [facility]RE[facility] IMAGING W/INTERP& ASS POSTPROC DIFF WORK STATION CT LUMBAR 99927 OMARI SALCIDO SPINE 3 [facility] W/O INC INC CONTRAST MATERIAL INITIAL 70763 [facility] 3 EMERGENCY JANET CARE/DAY SERVICES 70 MINUTES 3D 66969 OMARI SALCIDO RENDERING 3 [facility] W/INTERP INC INC & [place] [address] OMARI SALCIDO CERVICAL 3 [facility] SPINE W/O INC INC CONTRAST MATERIAL RADEX 70292 OMARI JESSICA ORTEGA SPINE 3 [facility] LUMBOSACR INC AL MINIMUM 4 VIEWS RADIOLOGI 72727 OMARI SALCIDO C 3 [facility] EXAMINATI INC INC ON PELVIS 1/2 VIEWS AMBULANCE A0429 [facility] SERVICE 3 AMBULANCE AMBULANCE BLS SERVICE SERVICE EMERGENCY TRANSPORT THERAPEUT 39779 OMARI SALCIDO IC 3 [facility] PROPHYLAC INC INC TIC/DX INJECTION SUBQ/IM GROUND A0425 [facility] 3 AMBULANCE AMBULANCE PER SERVICE SERVICE STATUTE MILE 3D 73400 OMARI SALCIDO RENDERING 3 [facility] INC INC W/INTERP& POSTPROC DIFF WORK STATION RADIOLOGI 01866 OMARI SALCIDO C 3 [facility] EXAMINATI INC [place] [address] OMARI SALCIDO HEAD/BRAI 3 [facility] N W/O INC INC CONTRAST MATERIAL INJECTION J1040 ARAMBULAZak ARAMBULA 3 DON DON METHYLPRE DNISOLONE ACETATE 80 MG STANDARD K0001 MICHELLE MAXWELL 3 HOME HOME R MEDICAL MEDICAL EQUIPME EQUIPME COMPREHEN 62651 OMARI SALCIDO SIVE 3 [facility] METABOLIC INC INC PANEL URNLS DIP 15645 OMARI SALCIDO 3 [facility] STICK/TAB INC INC LET REAGENT AUTO MICROSCOP Y BLOOD 13127 OMARIBG SALCIDO COUNT 3 [facility] COMPLETE INC INC AUTO&AUTO DIFRNTL WBC COLLECTIO 75761 OMARI SALCIDO N VENOUS 3 [facility] BLOOD INC INC VENIPUNCT URE RADIOLOGI 79415 TYESHA Alcala 3 DON DON EXAMINATI ON KNEE 1/2 VIEWS STANDARD K0001 MICHELLE MAXWELL 3 HOME HOME R MEDICAL MEDICAL EQUIPME EQUIPME CULTURE 34861 OMARI OMARI BACTERIAL 3 [facility] INC INC QUANTTATI VE COLONY COUNT URINE CULTURE 19041 OMARI SALCIDO BCT 3 [facility] ISOL&PRSM INC INC PTV ID ISOLATE EA URINE SUSCEPTIB 02366 OMARI SALCIDO LTY STDY 3 [facility] ANTIMICRB INC INC IAL MICRO/AGA R DILUTJ URNLS DIP 17222 TYESHA ARAMBULA 3 DON DON STICK/TAB LET RGNT NON-AUTO W/O MICRSCP OPHTH 12880 [facility] 3 MEDICAL JR ORTEGA XM&EVAL SERV COMPRHNSV FOUNDATIO ESTAB PT 1/> CUL BACT 77082 OMARI OMARI XCPT 3 [facility] URINE INC INC BLOOD/[place] [address] OMARI SALCIDO INFUSION 3 [facility] THERAPY/P INC INC ROPHYLAXI S /DX 1ST TO 1 [place] [address] OMARI OMARI INFUSION 3 [facility] THERAPY/P INC INC ROPHYLAXI S /DX 1ST TO 1 [place] [address] OMARI SALCIDO INFUSION 3 [facility] THERAPY/P INC INC ROPHYLAXI S /DX 1ST TO 1 HR DRUG 02264 OMARI SALCIDO SCREEN 3 [facility] QUANTITAT INC INC RIGO GENTAMICI N DRUG 29648 OMARI SALCIDO SCREEN 3 [facility] QUANTITAT INC INC RIGO GENTAMICI N COLLECTIO 27913 OMARI SALCIDO N VENOUS 3 [facility] BLOOD INC INC VENIPUNCT URE DRUG 25478 OMARI SALCIDO SCREEN 3 [facility] QUANTITAT INC INC RIGO GENTAMICI N COLLECTIO 95348 OMARI SALCIDO N VENOUS 3 [facility] [place] [address] OMARI OMARI INFUSION 3 [facility] THERAPY/P INC INC ROPHYLAXI S /DX 1ST TO 1 HR COLLECTIO 30170 OMARI SALCIDO N VENOUS 3 [facility] BLOOD INC INC VENIPUNCT URE DRUG 08437 OMARI SALCIDO SCREEN 3 [facility] QUANTITAT INC INC RIGO GENTAMICI N CREATININ 45107 OMARI SALCIDO E BLOOD 3 [facility] [place] [place] [address] OMARI SALCIDO UREA 3 [facility] [place] [address] OMARI SALCIDO INFUSION 3 [facility] THERAPY/P INC INC ROPHYLAXI S /DX 1ST TO 1 HR BASIC 33403 OMARI SALCIDO METABOLIC 3 [facility] PANEL INC INC CALCIUM TOTAL CUL BACT 45216 OMARI SALCIDO AEROBIC 3 [facility] ADDL INC INC METHS DEFINITIV E EA ISOL CUL BACT 20855 OMARI SALCIDO XCPT 3 [facility] URINE INC INC BLOOD/STO OL AEROBIC ISOL INJECTION J0690 TYESHA ARAMBULA 3 DON DON CEFAZOLIN SODIUM 500 MG SUSCEPTIB 87602 OMARI SALCIDO LTY STDY 3 [facility] [...] SONE ACETATE & PHOSPHATE 3 MG REMOVAL 13287 TYESHA ARAMBULA IMPACTED 2 DON DON CERUMEN INSTRUMEN TATION UNILAT ECG 42113 TYESHA ARAMBULA ROUTINE 2 DON DON ECG W/LEAST 12 LDS W/I&R ECG 03318 TYESHA ARAMBULA ROUTINE 2 DON DON ECG W/LEAST 12 LDS W/I&R RADEX ABD 66988 TYESHA ARAMBULA COMPL 2 DON DON AQT ABD W/S/E/D VIEWS 1 VIEW CH INJECTION J1040 TYESHA ARAMBULA 2 DON DON METHYLPRE DNISOLONE ACETATE 80 MG URNLS DIP 59764 TYESHA ARAMBULA 2 DON DON STICK/TAB LET RGNT NON-AUTO W/O MICRSCP COMPREHEN 64982 OMARI OMARI SIVE 2 [facility] METABOLIC INC INC PANEL URNLS DIP 23487 OMARI SALCIDO 2 [facility] STICK/TAB INC INC LET REAGENT AUTO MICROSCOP Y ECG 27909 OMARIBG SALCIDO ROUTINE 2 [facility] ECG INC INC W/LEAST 12 LDS TRCG ONLY W/O I&R BLOOD 56029 OMARI SALCIDO COUNT 2 [facility] COMPLETE INC INC AUTO&AUTO DIFRNTL WBC CREATINE 30156 OMARI OMARI KINASE MB 2 [facility] FRACTION INC INC ONLY CREATINE 66741 OMARI OMARI KINASE 2 [facility] TOTAL INC INC NATRIURET 24850 OMARI SALCIDO IC 2 [facility] [place] [address] OMARI SALCIDO TROPONIN 2 [facility] QUANTITAT INC INC RIGO RADIOLOGI 89292 OMARI SALCIDO C 2 [facility] EXAMINATI INC INC ON CHEST SINGLE VIEW FRONTAL ECG 62863 EMILY STARK ROUTINE 2 EMERGENCY SAJAN ECG SERVICES W/LEAST 12 LDS I&R ONLY INJECTION J2405 OMARI SALCIDO 2 [facility] ONDANSETR INC INC ON HCL PER 1 MG THER 86703 OMARI SALCIDO PROPH/DX 2 [facility] NJX IV INC INC PUSH SINGLE/1S T SBST/DRUG COLLECTIO 06174 OMARI SALCIDO N VENOUS 2 [facility] BLOOD INC INC VENIPUNCT URE COMPREHEN 78625 OMARI SALCIDO SIVE 2 [facility] METABOLIC INC INC PANEL INJECTION J3420 TYESHA ARZATES VIT B-12 2 DON DON CYANOCOBA JEWEL TO 1000 MCG INJECTION J1040 TYESHA JAMESONHENS 2 DON DON METHYLPRE DNISOLONE ACETATE 80 MG TYMPANOME 92014 TYESHA ARZATES TRY 2 DON DON COMPREHEN 10385 OMARI CALLEON SIVE 2 [facility] METABOLIC INC INC PANEL LIPID 77663 OMARI SALCIDO PANEL 2 [facility] INC INC COLLECTIO 37488 OMARI SALCIDO N VENOUS 2 [facility] BLOOD INC INC VENIPUNCT URE BLOOD 18725 OMARI SALCIDO COUNT 2 [facility] COMPLETE INC INC AUTO&[place] [address] OMARI SALCIDO THYROID 2 [facility] STIMULATI INC INC NG HORMONE TSH OPHTH 61191 [place] [facility] 2 MEDICAL ORTEGA XM&EVAL SERV COMPRHNSV FOUNDATIO ESTAB PT 1/> COMPUTERI 78150 [place] [facility] ARREOL[place] 2 MEDICAL ORTE[place] OPHTHAL[place] [address] OMARI SALCIDO TRANSVAGI 2 [facility] NAL INC INC US PELVIC 41557 LORAINE HIRSCHUTCHER 2 MEDICAL LATRELL NONOBSTET IMAGING ZOEY ASS REAL-TIME IMAGE COMPLETE URNLS DIP 28483 ARAMBULAKRISS ARAMBULA 2 DON DON STICK/TAB LET RGNT NON-AUTO W/O MICRSCP INJECTION J1040 ARAMBULA ARAMBULA 2 DON DON METHYLPRE DNISOLONE ACETATE 80 MG INJECTION J3420 TYESHA ARAMBULA VIT B-12 2 DON DON CYANOCOBA JEWEL TO 1000 MCG URNLS DIP 27757 ARAMBULA ARAMBULA 2 DON DON STICK/TAB LET RGNT NON-AUTO W/O MICRSCP INJECTION J3420 ARAMBULA ARAMBULA VIT B-12 1 DON DON CYANOCOBA JEWEL TO 1000 MCG INFLUENZA Q2037 ARAMBULA ARAMBULA VACC 1 DON DON SPLIT VIRUS 3 YRS & > IM FLUVIRIN ADMINISTR G0008 TYESHA ARAMBULA ATION OF 1 DON DON INFLUENZA VIRUS VACCINE URNLS DIP 33244 ARAMBULAKRISS ARAMBULA 1 DON DON STICK/TAB LET RGNT NON-AUTO W/O MICRSCP INJECTION J3420 ARAMBULA ARAMBULA VIT B-12 1 DON DON CYANOCOBA JEWEL TO 1000 MCG INJECTION J1040 ARAMBULA ARAMBULA 1 DON DON METHYLPRE DNISOLONE ACETATE 80 MG URNLS DIP 57351 ARAMBULA ARAMBULA 1 DON DON STICK/TAB LET RGNT NON-AUTO W/O MICRSCP URNLS DIP 56762 ARAMBULAKRISS ARAMBULA 1 DON DON STICK/TAB LET RGNT NON-AUTO W/O MICRSCP CULTURE 57890 OMARI SALCIDO BACTERIAL 1 [facility] INC INC QUANTTATI VE COLONY COUNT URINE URNLS DIP 11933 TYESHA ARAMBULA 1 DON DON STICK/TAB LET RGNT NON-AUTO W/O MICRSCP URNLS DIP 56184 [place] [facility] [place] [facility] STICK/TAB CLINIC LET RGNT PSC NON-AUTO W/O MICRSCP URNLS DIP 56980 TYESHA ARAMBULA 1 DON DON STICK/TAB LET RGNT NON-AUTO W/O MICRSCP INJ J0702 TYESHA ARAMBULA BETAMETHA 1 DON DON SONE ACETATE & PHOSPHATE 3 MG INJECTION J3420 TYESHA ARAMBULA VIT B-12 1 DON DON CYANOCOBA JEWEL TO 1000 MCG 3D 27495 [place] [facility] 1 MEDICAL [facility] IMAGING W/INTERP& ASS POSTPROC DIFF WORK STATION CT THORAX 06533 OMARI SALCIDO 1 [facility] W/[place] [address] [place] [facility] ABDOMEN & 1 MEDICAL [facility] PELVIS IMAGING W/CONTRAS ASS T MATERIAL CT THORAX 23151 [place] [facility] W/O 1 [facility] [place] [address] [facility] BLOOD/URI 1 [facility]INIC CLINIC C ACID LABORATO LABORATO COMPREHEN 59056 [facility] SIVE 1 [facility]INIC METABOLIC LABORATO LABORATO PANEL COLLECTIO 87285 [facility] N VENOUS 1 CLINIC CLINIC BLOOD LABORATO LABORATO VENIPUNCT URE BLOOD 57982 [facility] COUNT 1 CLINIC [facility]IN[facility] COMPLETE LABORATO LABORATO AUTO&AUTO DIFRNTL WBC LACTATE 56000 [facility] DEHYDROGE 1 CLINIC CLINIC NASE LDH LABORATO LABORATO INJECTION J3420 TYESHA ARAMBULA VIT B-12 1 DON DON CYANOCOBA JEWEL TO 1000 MCG INJECTION J1040 TYESHA ARAMBULA 1 DON DON METHYLPRE DNISOLONE ACETATE 80 MG INJECTION J0690 TYESHA ARAMBULA 1 DON DON CEFAZOLIN SODIUM 500 MG URNLS DIP 49589 OMARI JEAN-BAPTISTE JR 1 [facility] LET RGNT P NON-AUTO W/O MICRSCP INJECTION J1040 TYESHA JAMESONHENS 1 DON DON METHYLPRE DNISOLONE ACETATE 80 MG COMPREHEN 19870 OMARI SALCIDO SIVE 1 [facility] METABOLIC INC INC PANEL LIPID 31449 OMARI SALCIDO PANEL 1 [facility] INC INC BLOOD 45784 OMARI SALCIDO COUNT 1 [facility] COMPLETE INC INC AUTO&[place] [address] OMARI SALCIDO THYROID 1 [facility] STIMULATI INC INC NG HORMONE TSH COLLECTIO 32936 OMARI SALCIDO N VENOUS 1 [facility] BLOOD INC INC VENIPUNCT URE INJECTION J1040 TYESHA JAMESONHENS 1 DON DON METHYLPRE DNISOLONE ACETATE 80 MG INJECTION J1040 ARAMBULA ARAMBULA 0 DON DON METHYLPRE DNISOLONE ACETATE 80 MG AMBULANCE A0429 [facility] SERVICE 0 AMBULANCE AMBULANCE BLS SERVICE SERVICE EMERGENCY TRANSPORT GROUND A0425 [facility] MILEAGE 0 AMBULANCE AMBULANCE PER SERVICE SERVICE STATUTE MILE SIMPLE 43451 OMARI SALCIDO RPR 0 [facility] SCALP/NEC INC INC K/AX/KIRSTIE T/TRUNK 7.6-12.[place] [address] OMARI SALCIDO CLOSTRIDI 0 [facility] UM INC INC DIFFICILE TOXIN URNLS DIP 11359 TYESHA JAMESONHENS 0 DON DON STICK/TAB LET RGNT NON-AUTO W/O MICRSCP OPHTH 22019 [facility] 0 MEDICAL ORTEGA XM&EVAL SERV COMPRHNSV FOUNDATIO ESTAB PT 1/> ADMINISTR G0008 TYESHA ARAMBULA ATION OF 0 DON DON INFLUENZA VIRUS VACCINE IIV3 93707 TYESHA ARZATES VACCINE 0 DON DON SPLIT VIRUS 0.5 ML DOSAGE IM USE INJECTION J1040 TYESHA JAMESONHENS 0 DON DON METHYLPRE DNISOLONE ACETATE 80 MG INJECTION J1040 TYESHA ARAMBULA 0 DON DON METHYLPRE DNISOLONE ACETATE 80 MG INJECTION J3420 TYESHA ARAMBULA VIT B-12 0 DON DON CYANOCOBA JEWEL TO 1000 MCG URNLS DIP 74534 TYESHA ARAMBULA 0 DON DON STICK/TAB LET RGNT NON-AUTO W/O MICRSCP URNLS DIP 00086 TYESHA ARAMBULA 0 DON DON STICK/TAB LET RGNT NON-AUTO W/O MICRSCP URNLS DIP 69981 CARITO ARAMBULAS, 0 DON R DON R STICK/TAB LET RGNT NON-AUTO W/O MICRSCP INJECTION J1040 TRINO ARAMBULAHENS, 0 DON R DON R METHYLPRE DNISOLONE ACETATE 80 MG THERAPEUT 47625 OMARI SALCIDO IC 0 [facility] PROPHYLAC INC INC TIC/DX INJECTION SUBQ/IM INJECTION J1040 ARAMBULA, ARAMBULA, 0 DON R DON R METHYLPRE DNISOLONE ACETATE 80 MG URNLS DIP 74403 CARITO ARAMBULAS, 0 DON R DON R STICK/TAB LET RGNT NON-AUTO W/O MICRSCP COMPREHEN 18437 [facility] SIVE 0 [facility]INIC [facility]IN[facility] METABOLIC LABORATOR LABORATOR PANEL Y Y COLLECTIO 21737 [facility] N VENOUS 0 CLINIC CLINIC BLOOD LABORATOR LABORATOR VENIPUNCT Y Y URE BLOOD 95294 [facility] COUNT 0 CLINIC CLINIC COMPLETE LABORATOR LABORATOR AUTO&AUTO Y Y DIFRNTL WBC LACTATE 33120 [facility] DEHYDROGE 0 CLINIC CLINIC NASE LDH [place] [address] [facility] BLOOD/URI 0 CLINIC CLINIC C ACID LABORATOR LABORATOR Y Y INJECTION J3420 TRINO ARAMBULAHENS, VIT B-12 0 DON R DON R CYANOCOBA JEWEL TO 1000 MCG RADIOLOGI 27103 Fredrick LYNNE EXAM 0 MEDICAL DEAN CHEST 2 IMAGING VIEWS ASSOCIATE FRONTAL&L S ATERAL THERAPEUT 58865 OMARI CALLEON IC 0 [facility] PROPHYLAC INC INC TIC/DX INJECTION SUBQ/IM INJECTION J1040 TYESHA ARAMBULA, 0 DON R DON R METHYLPRE DNISOL[place] [address] [place] [address] LORAINE ZACH, HEAD/BRAI 0 MEDICAL DEAN N W/O & IMAGING W/CONTRAS ASSOCIATE T S MATERIAL CREATININ 27507 OMARI SALCIDO E BLOOD 0 [facility] [place] [address] OMARI SALCIDO UREA 0 [facility] NITROGEN INC INC QUANTITAT RIGO COLLECTIO 32835 OMARI SALCIDO N VENOUS 0 [facility] BLOOD INC INC VENIPUNCT URE 3D 87139 [facility] ZACH, RENDERING 0 MEDICAL DEAN W/INTERP IMAGING & ASSOCIATE POSTPROCE S SS SUPERVISI ON RADEX HIP 30305 OMARI SALCIDO 0 [facility] INC INC L COMPLETE MINIMUM 2 VIEWS RADIOLOGI 67759 OMARI SALCIDO C 0 [facility] EXAMINATI INC INC ON PELVIS 1/2 VIEWS URNLS DIP 82177 TYESHA ARAMBULA, 0 DON R DON R STICK/TAB LET RGNT NON-AUTO W/O MICRSCP BLOOD 43865 TYESHA ARAMBULA, OCCULT 0 DON R DON R PEROXIDAS E ACTV QUAL FECES 1 DETER INJ J0702 TYESHA ARAMBULA, BETAMETHA 0 DON R DON R SONE ACETATE & PHOSPHATE 3 MG 3D 15004 [facility] ZACH, RENDERING 9 MEDICAL DEAN IMAGING W/INTERP& ASSOCIATE POSTPROC S DIFF WORK STATION CT THORAX 98408 [facility] ZCAH, 9 MEDICAL DEAN W/CONTRAS IMAGING T ASSOCIATE MATERIAL S CREATININ 39582 OMARI SALCIDO E BLOOD 9 [place] [address] OMARI SALCIDO UREA 9 [facility] NITROGEN INC INC QUANTITAT RIGO COLLECTIO 67138 OMARI SALCIDO N VENOUS 9 [facility] BLOOD INC INC VENIPUNCT URE SBSQ 71872 TYESHA ARAMBULA, NURSING 9 DON R DON R FACILITY CARE/DAY E/M STABLE 10 MIN HOSPITAL [address] [facility] 9 DON R DON R DAY MANAGEMEN T 30 MIN/< SBSQ 93435 [place] [address] DON R DON R CARE/DAY 25 MINUTES SBSQ 85867 [facility] 9 DON R DON R CARE/DAY 25 MINUTES SBSQ 09983 [facility] 9 DON R DON R CARE/DAY 25 MINUTES RADIOLOGI 56156 Fredrick LYNNE 9 MEDICAL DEAN EXAMINATI IMAGING ON CHEST ASSOCIATE SINGLE S VIEW FRONTAL SBSQ 85132 [place] [address] DON R DON R CARE/DAY 25 MINUTES SBSQ 54200 [facility] 9 DON R DON R CARE/DAY 25 MINUTES ECG 34292 OMARI GUEVARA, ROUTINE 9 [facility] W/LEAST PROF SERV 12 LDS I&R ONLY SBSQ 67802 [facility] 9 DON R DON R CARE/DAY 25 MINUTES HIP 0074 OMARI SALCIDO BEARING 9 [facility] SURFACE INC INC METAL-ON- POLYETHYL AYUSH PARTIAL 8152 OMARI SALCIDO HIP 9 [facility] REPLACEME INC INC NT ANESTHESI 51281 [facility] GAMINO OPEN 9 ANESTH [facility] [place] [address] PATHOLOGY PATHOLOGY SURG 9 & & PATHOLOGY CYTOLOGY CYTOLOGY LAB LAB GROSS&SAJAN ROSCOPIC EXAM DECALCIFI 49698 PATHOLOGY PATHOLOGY CATION 9 & & PROCEDURE CYTOLOGY CYTOLOGY LAB LAB RADEX HIP [address]0577 [place] [facility] UN[facility]ATERA IMAGING L 1 VIEW ASSOCIATE S RADEX HIP 65927 [facility] [place] IMAGING L ASSOCIATE COMPLETE S MINIMUM 2 VIEWS GROUND A0425 [facility] 9 AMBULANCE AMBULANCE PER SERVICE SERVICE STATUTE MILE INITIAL 38183 [facility] 9 DON R DON R CARE/DAY 50 MINUTES RADIOLOGI 38952 [facility] ORTIZ 9 MEDICAL DEAN EXAMINATI IMAGING ON CHEST ASSOCIATE SINGLE S VIEW FRONTAL AMB A0427 [facility] SERVICE 9 AMBULANCE AMBULANCE ALS SERVICE SERVICE EMERGENCY TRANSPORT LEVEL 1 ECG 61758 OMARI OHARA ROUTINE 9 [facility], ECG [facility] JORGE F W/LEAST PROF SERV 12 LDS I&R ONLY RADIOLOGI 36265 [facility] ORTIZ 9 MEDICAL DEAN EXAMINATI IMAGING ON PELVIS ASSOCIATE 1/2 S VIEWS OPHTH 27871 [facility] 9 MEDICAL MARTINE D XM&EVAL SERV INTERMEDI FOUNDATIO ATE ESTAB PT ADMINISTR G0008 TYESHA ARAMBULA, ATION OF DON R DON R INFLUENZA VIRUS VACCINE PPSV23 00778 TYESHA ARAMBULA, ERNESTO 2 9 DON R DON R YRS OR OLDER FOR SUBQ/IM USE IIV3 03632 TYESHA ARAMBULA, ERNESTO 9 DON R DON R SPLIT VIRUS 0.5 ML DOSAGE IM USE ADMINISTR G0009 TYESHA ARAMBULA, ATION OF 9 DON R DON R PNEUMOCOC CECILIA VACCINE URNLS DIP 19414 TYESHA ARAMBULA 9 DON R DON R STICK/TAB LET RGNT NON-AUTO W/O MICRSCP URNLS DIP 91876 TYESHA ARAMBULA 9 DON R DON R STICK/TAB LET RGNT NON-AUTO W/O MICRSCP INJECTION J3420 TYESHA ARAMBULA, VIT B-12 9 DON R DON R CYANOCOBA JEWEL TO 1000 MCG RADEX 17852 OMARI SALCIDO WRIST 9 [facility] COMPLETE INC INC MINIMUM 3 VIEWS RADEX 57705 OMARI SALCIDO ANKLE 9 [facility] COMPLETE INC INC MINIMUM [address] PELVIS 33475 [place], 9 MEDICAL MARCO P W/[place] [address] [facility] TRISTAN, ABDOMEN 9 MEDICAL MARCO P W/CONTRAS IMAGING T ASSOCIATE MATERIAL S 3D 85305 [facility] TRISTAN, RENDERING 9 MEDICAL MARCO P IMAGING W/INTERP& ASSOCIATE POSTPROC S DIFF WORK STATION CT THORAX 23570 [facility] TULSAAndrea TRISTAN, 9 MEDICAL [facility] P W/CONTRAS IMAGING T ASSOCIATE MATERIAL S COMPREHEN 35135 [facility] SIVE 9 [facility] METABOLIC LABORATOR LABORATOR PANEL Y Y COLLECTIO 51037 [facility] N VENOUS 9 [facility] BLOOD LABORATOR LABORATOR VENIPUNCT Y Y URE BLOOD 50532 [facility] COUNT 9 [facility] COMPLETE LABORATOR LABORATOR AUTO&AUTO Y Y DIFRNTL WBC INJECTION J3420 TYESHA ARAMBULA, VIT B-12 9 DON R DON R CYANOCOBA JEWEL TO 1000 MCG INJECTION J1040 TYESHA ARAMBULA, Candie DON R DON R METHYLPRE DNISOLONE ACET[place] 80 [place] [address] [facility] BLOOD/URI 9 [facility] C [place] [address] [facility] GAMMAGLOB 9 [facility] ULIN IGA LABORATOR LABORATOR IGD IGG Y Y IGM EACH LACTATE 95405 [facility] DEHYDROGE 9 [facility] NASE LDH LABORATOR LABORATOR Y Y BLOOD 89081 [facility] COUNT 9 [facility] COMPLETE LABORATOR LABORATOR AUTO&AUTO Y Y DIFRNTL WBC COLLECTIO 25198 [facility] N VENOUS 9 [facility] BLOOD LABORATOR LABORATOR VENIPUNCT Y Y URE COMPREHEN 66981 [facility] SIVE 9 [facility] METABOLIC LABORATOR LABORATOR PANEL Y Y MYOCRD 83516 [facility] SALCIDO PRFUJ IMG 9 [facility] TOMOG INC INC SPECT ARTISAN PLASTERER STD MYOCRD 87666 [facility] SALCIDO PRFUJ STD 9 [facility] EJEC FXJ INC INC CV STRS 35896 [facility] ROGER, TST 9 [facility] XERS&/OR HOSPITAL RX CONT PROF SERV ECG W/O I&R CV STRS 43071 [facility] SALCIDO TST 9 [facility] XERS&/OR INC INC RX CONT ECG TRCG ONLY CV STRS 37372 O[facility]I RAMINJOHANNA, TST 9 [facility] XERS&/OR HOSPITAL RX CONT PROF SERV ECG I&R ONLY MYOCRD 32848 [facility] SALCIDO PRFUJ STD 9 [facility] H[facility] WALL INC INC MOTION QUAL/NAYE STD TECHNETIU A9502 [facility] SALCIDO M TC-99M 9 [facility] HOSP TETROFOSM INC INC IN DX PER STUDY DOSE INJECTION J0152 [facility] SALCIDO 9 [facility] HOSP ADENOSINE INC INC DIAGNOSTI C USE 30 MG RADIOLOGI 48944 TYESHA ARAMBULA C 9 DON R DON R EXAMINATI ON CHEST SINGLE VIEW FRONTAL ECG 01376 TYESHA ARAMBULA ROUTINE 9 DON R DON R ECG W/LEAST 12 LDS W/I&R RADIOLOGI 81776 TYESHA ARAMBULA C EXAM 9 DON R DON R PELVIS COMPL MINIMUM 3 VIEWS RADEX HIP 20787 TYESHA ARAMBULA 9 DON R DON R UNILATERA L COMPLETE MINIMUM 2 VIEWS INJECTION J1040 TYESHA ARAMBULA 9 DON R DON R METHYLPRE DNISOLONE ACETATE 80 MG INJECTION J1040 TYESHA ARAMBULA 8 DON R DON R METHYLPRE DNISOLONE ACETATE [address] [place] [address] [facility] BLOOD/URI 8 [facility] C ACID LABORATOR LABORATOR Y Y COMPREHEN 28434 [facility] SIVE 8 [facility] METABOLIC LABORATOR LABORATOR PANEL Y Y COLLECTIO 23641 [facility] N VENOUS 8 [facility] BLOOD LABORATOR LABORATOR VENIPUNCT Y Y URE LACTATE 09290 [facility] DEHYDROGE 8 [facility]IC CLIN[facility] NASE LDH LABORATOR LABORATOR Y Y BLOOD 05030 [facility] COUNT 8 [facility] COMPLETE LABORATOR LABORATOR AUTO&AUTO Y Y DIFRNTL WBC INJECTION J1040 TYESHA ARAMBULA, Roberta DON R DON R METHYLPRE DNISOLONE ACETATE 80 MG OPHTH 99270 [facility] [place] 8 [facility]&EVAL SERV COMPRHNSV FOUNDATIO ESTAB PT 1/> URNLS DIP 09900 TYESHA ARAMBULA, Roberta DON R DON R STICK/TAB LET RGNT NON-AUTO W/O MICRSCP ADMINISTR G0008 TYESHA ARAMBULA, ATION OF 8 DON R DON R INFLUENZA VIRUS VACCINE IIV3 65814 TYESHA ARAMBULA, VACCINE 8 DON R DON R SPLIT VIRUS 0.5 ML DOSAGE IM USE BLOOD 02525 [facility] COUNT [address] [place] [address] COMPLETE AUTOMATED THER 91161 [facility] PROPH/DX [address] [place] [address] NJX IV PUSH 1ST SBST/[place] [address] [facility] UREA [address] [place] [address] NITROGEN QUANTITAT RIGO BLOOD 74723 [facility] GASES ANY [address] [place] [address] COMBINATI ON PH PCO2 PO2 CO2 HCO3 [facility]UCOSE 69755 [facility] [address] [place] [address] RIGO BLOOD XCPT REAGENT STRIP SODIUM [address] [place] [address] [facility] TROPONIN [address] [place] [address] QUANTITAT RIGO NATRIURET 89161 [facility] IC [address] [place] [address] PEPTIDE POTASSIUM [address] PLASMA/[place] [address] [facility] LIPASE [address] [place] [address] CHLORIDE 87786 [facility] BLD [address] [place] [address] HEPATIC 63095 [facility] FUNCTION [address] [place] [address] PANEL URNLS DIP [address] STICK/TAB LET REAGENT AUTO MICROSCOP Y ECG 53623 [facility] ROUTINE [address] [place] [address] ECG W/LEAST 12 LDS TRCG ONLY W/O I&R INJECTION J2405 [address] ONDANSETR ON HCL PER 1 MG IV NFUS 85504 [facility] HYDRATION 8 [facility] EA HR RADIOLOGI 82941 [facility] C EXAM [address] [place] [address] CHEST 2 VIEWS FRONTAL&L ATERAL ECG 85386 EMERGENCY ACKERMAN, ROUTINE 8 PHYS CARL W ECG [place] W/LEAST 12 LDS I&R ONLY RADEX 27771 [facility] SALCIDO SPINE 8 [facility] AL MINIMUM 4 VIEWS RADIOLOGI 02393 TYESHA ARAMBULA C EXAM 8 DON R [...] Code Location Performer Type Date [facility] [address] [facility] 7 7 [facility] 7 7 [facility] - 7 7 [facility] - [address] [facility] T OFFICE 16103 [facility] 7 7 PHYSICIAN T VISIT S GROUP 25 MINUTES [facility] - [address] [facility] 78163 [facility] T VISIT S GROUP 25 MINUTES [facility] 7 [facility] T OFFICE 01261 [facility] RIKI OUTPATIEN 7 7 PHYSICIAN T VISIT S GROUP 40 MINUTES OFFICE 69899 MERRY HENRY OUTPATIEN 7 7 MEDICAL T VISIT SERV 25 FOUNDATIO MINUTES [facility] - 7 7 [facility] INC T OFFICE 02614 [facility] RIKI OUTPATIEN 7 7 PHYSICIAN T VISIT S GROUP 40 MINUTES [facility] - 7 7 [facility] 7 7 [facility] 7 7 [facility] T OFFICE 64181 MERRY HENRY OUTPATIEN 7 7 MEDICAL T NEW 60 SERV MINUTES [facility] - 7 7 [facility] INC T OFFICE 58564 [facility] RIKI OUTPATIEN 7 7 PHYSICIAN T VISIT S GROUP 15 MINUTES [facility] - 7 7 [facility] T OFFICE 66161 [facility] RIKI OUTPATIEN 7 7 PHYSICIAN T NEW 60 S GROUP MINUTES [facility]OS[facility] - 7 7 [facility] 7 7 [facility]PAT[facility] INC [facility] - OTHER [address] [facility] - 7 7 [facility] OUTPATIEN INC T EMERGENCY 99691 [facility] MAK 7 7 PHYSICIAN DEPARTKPC [facility], [facility] T VISIT HIGH/URGE NT SEVERITY EMERGENCY 40744 [facility] 7 7 [facility] DEPARTMEN INC T VISIT LOW/MODER SEVERITY OFFICE 35231 ISMAEL GUEVARA JR OUTPATIEN 7 7 T VISIT 15 MINUTES OFFICE 55114 [facility] 6 6 [place] T NEW 20 CLINIC MINUTES PSC [facility] IN[facility] 6 6 [facility] 6 6 [facility] - 6 6 [facility] T [facility] INPATIENT 6 6 [facility] EMERGENCY 10124 CUBA CASTILLO DEPT 6 6 PHYSICIAN SARAH VISIT S, [facility] HIGH SEVERITY& THREAT [facility] - 6 6 [facility] INPATIENT INC EMERGENCY 88203 CUBA JAQUEZ 6 6 PHYSICIAN FOR DEPARTMEN S, [facility] T VISIT MODERATE SEVERITY OFFICE 45513 [facility] DYLAN SIMMONS OUTPATIEN 6 6 PHYSICIAN MANJINDER T VISIT S GROUP 10 MINUTES HOSPITAL [facility] - 6 6 [facility] OUTPATIEN INC T OFFICE 70663 ISMAEL GUEVARA JR OUTPATIEN 6 6 YOJANA DWI T VISIT 15 MINUTES OFFICE 25590 [facility] DYLAN SIMMONS OUTPATIEN 6 6 PHYSICIAN MANJINDER T VISIT S GROUP 15 MINUTES [facility]OSP[facility] - 6 6 [facility] OUTPATIEN INC T OFFICE 21734 ISMAEL GUEVARA JR OUTPATIEN 6 6 YOJANA DWI T VISIT 15 MINUTES OFFICE 12633 ISMAEL GUEVARA JR OUTPATIEN 6 6 YOJANA DWI T VISIT 15 MINUTES HOSPITAL [facility] - 6 6 [facility] OUTPATIEN INC T OFFICE 60069 ISMAEL GUEVARA OUTPATIEN 6 6 YOJANA YOJANA T VISIT 15 MINUTES OFFICE 10-23-201 10-23-201 53720 ISMAEL GUEVARA JR OUTPATIEN 5 5 YOJANA DWI T VISIT 15 MINUTES HOSPITAL [facility] - [address] [facility] OFF[facility] 63849 ISMAEL GUEVARA JR OUTPATIEN 5 5 YOJANA DWI T VISIT 15 MINUTES HOSPITAL [facility] - [address] [facility] OTHER 5 5 [facility] OFFICE 01631 ISMAEL GUEVARA JR OUTPATIEN 5 5 YOJANA DWI T VISIT 15 MINUTES OFFICE 26517 [facility] DYLAN OUTPATIEN 5 5 PHYSICIAN MANJINDER T VISIT S GROUP 15 MINUTES HOSPITAL [facility] - OTHER 5 5 [facility] O[facility] - [address] [facility] T OFFICE 05061 [facility] DYLAN OUTPATIEN 5 5 PHYSICIAN MANJINDER T VISIT S GROUP 25 MINUTES HOSPITAL [facility] - [address] [facility] [address] [facility] - OTHER 5 5 [facility] OTHER 5 5 [facility] OFFICE 08456 ISMAEL GUEVARA JR OUTPATIEN 5 5 YOJANA DWI T VISIT 15 MINUTES HOSPITAL [facility] - OTHER 5 5 [facility] OFFICE 37937 ISMAEL GUEVARA JR OUTPATIEN 5 5 YOJANA DWI T VISIT 15 MINUTES EMERGENCY 05696 [facility] 5 5 [facility] VISIT HIGH/URGE NT SEVERITY HOSPITAL [facility] - 5 5 [facility] 93502 ISMAEL GUEVARA JR OUTPATIEN 5 5 YOJANA DWI T VISIT 15 MINUTES HOSPITAL [facility] - OTHER 5 5 [facility] INC OFFICE 56632 ISMAEL GUEVARA JR OUTPATIEN 4 4 YOJANA DWI T VISIT 15 MINUTES OFFICE 75216 ISMAEL GUEVARA JR OUTPATIEN 4 4 YOJANA DWI T VISIT 15 MINUTES HOSPITAL [facility] - 4 4 [facility] OUTPATIEN INC T OFFICE 77619 [facility] ANJUR[facility]SU[facility] OUTPATIEN 4 4 [facility] CORNELIA T NEW 30 MEDICAL MINUTES G OFFICE 31529 ISMAEL GUEVARA JR OUTPATIEN 4 4 YOJANA DWI T VISIT 15 MINUTES [facility] OMARI - [address] [facility] OUTPATIEN INC T OFFICE 43739 ISMAEL GUEVARA JR OUTPATIEN 4 4 YOJANA DWI T VISIT 15 MINUTES EMERGENCY 99326 [facility] 4 4 [facility] HIGH/URGE NT SEVERITY [facility] - 4 4 [facility] OUTPATIEN INC T EMERGENCY 53117 [facility] DEPT 4 4 [facility] MOH VISIT EMERGENCY HIGH PHYS SEVERITY& THREAT FUNCJ OFFICE 00543 ISMAEL ALFORDEN 4 4 YOJANA DWI T VISIT [address] [facility] 4 4 [facility] EMERGENCY 42020 [facility] 4 4 [facility] T VISIT MODERATE SEVERITY OFFICE 68835 ISMAEL ALFORDEN 4 4 YOJANA DWI T VISIT 10 MINUTES OFFICE 59952 ISMAEL GUEVARA JR OUTPATIEN 4 4 YOJANA DWI T VISIT 15 MINUTES HOSPITAL [facility] COELLO 4 4 [facility] INC OFFICE 40693 ISMAEL GUEVARA JR OUTPATIEN 4 4 YOJANA DWI T VISIT 15 MINUTES [facility]OSPITAL [facility] - 4 4 [facility] OUTPAT[facility]EN [facility] T OFFICE 11708 ISMAEL GUEVARA JR OUTPATIEN 4 4 YOJANA DWI T VISIT 15 MINUTES HOSPITAL [facility] - OTHER 4 4 [facility] INC OFFICE 08285 ISMAEL GUEVARA JR OUTPATIEN 4 4 YOJANA DWI T VISIT 15 MINUTES EMERGENCY 72189 [facility] DEPT 4 4 [facility] VISIT EMERGENCY HIGH PHYS SEVERITY& THREAT FUN OFFICE 10869 ISMAEL GUEVARA JR OUTPATIEN 4 4 YOJANA DWI T VISIT 15 MINUTES OFFICE 50053 ISMAEL GUEVARA JR OUTPATIEN 4 4 YOJANA DWI T VISIT 25 MINUTES [facility]OSP[facility] - 4 4 [facility] OUT[facility]EN [facility] T EMERGENCY 93239 [facility] 4 4 [facility] T VISIT MODERATE SEVERITY [facility]OSPITAL [facility] - 4 4 [facility] OUTPATIEN [facility] T EMERGENCY 33739 [facility] 4 4 [facility] DEPARTMEN EMERGENCY T VISIT PHYS HIGH/URGE NT SEVERITY EMERGENCY 54728 [facility] 4 4 [facility] DEPARTMEN EMERGENCY T VISIT PHYS MODERATE SEVERITY EMERGENCY 84692 [facility] 4 4 [facility] DEPARTMEN INC T VISIT LOW/MODER SEVERITY HOSPITAL [facility] - 4 4 [facility]PATI[facility] - OTHER 4 4 [facility] O[facility] - 3 3 [facility] OUTPATIEN [facility] T OFFICE 79953 ISMAEL GUEVARA JR OUTPATIEN 3 3 YOJANA DWI T VISIT 15 MINUTES HOSPITAL [facility] - [address] [facility] OUTPATIEN INC T OFFICE 87204 [facility] TRA OUTPATIEN 3 3 [place] T VISIT [facility]THOP[facility]ED [facility] MINUTES OFFICE 27185 JAIME GEIGER [facility] OUTPATIEN 3 3 [facility] 15 PSC MINUTES OFFICE 33899 ARAMBULA ARAMBULA OUTPATIEN 3 3 DON DON T VISIT 15 MINUTES OFFICE 50454 ARAMB[facility] ARAMBULA OUTPATIEN 3 3 DON DON T VISIT 15 MINUTES Emergency TY Arias (ER) 3 14:41 3 16:55 [facility] - 3 3 [facility] OUTPATIEN INC T EMERGENCY 48450 [facility] 3 3 [facility] DEPARTMEN INC T VISIT LOW/MODER SEVERITY EMERGENCY 41088 EMILY ARIAS DEPT 3 3 EMERGENCY [facility] VISIT SERVICES HIGH SEVERITY& THREAT FUN Emergency TY Stark MD (ER) 3 20:06 3 23:03 [facility] EMERGENCY 43272 [facility] 3 3 [facility] DEPARTMEN INC T VISIT LOW/MODER SEVERITY [facility]OSP[facility] - 3 3 [facility] OUTPATIEN INC T EMERGENCY 79185 EMILY STARK DEPT 3 3 EMERGENCY [facility] V[facility]IT SERVICES HIGH SEVERITY& THREAT FUNJ OFFICE 04053 ARAMBULA ARAMBULA OUTPATIEN 3 3 DON DON T VISIT 15 MINUTES [facility] - 3 3 [facility] OUTPAT[facility] INC T OFFICE 24739 ARAMBULA ARAMBULA OUTPATIEN 3 3 DON DON T VISIT 25 MINUTES [facility] - 3 3 [facility] OUTPATIEN INC T OFFICE 03869 ARAMBULA ARAMBULA OUTPATIEN 3 3 DON DON [...] [facility] - 3 3 [facility] OUTPATIEN [facility] T OFFICE 82807 ARAMBULA ARAMBULA OUTPATIEN 3 3 DON DON T VISIT 15 MINUTES OFFICE 71428 ARAMBULA ARAMBULA OUTPATIEN 2 2 DON DON T VISIT 15 MINUTES OFFICE 88969 ARAMBULA ARAMBULA OUTPATIEN 2 2 DON DON T VISIT 25 MINUTES OFFICE 23217 ARAMBULA ARAMBULA OUTPATIEN 2 2 DON DON T VISIT 25 MINUTES OFFICE 07775 ARAMBULA ARAMBULA OUTPATIEN 2 2 DON DON T VISIT 25 MINUTES OFFICE 99883 ARAMBULA ARAMBULA OUTPATIEN 2 2 DON DON T VISIT 15 MINUTES EMERGENCY 07917 EMILY STARK DEPT 2 2 EMERGENCY [facility] VISIT SERVICES HIGH SEVERITY& THREAT FUN EMERGENCY 88187 [facility] 2 2 [facility] T VISIT HIGH/URGE NT SEVERITY [facility]OSP[facility] - 2 2 [facility] T OFFICE 04907 [place] [facility] OUTPATIEN 2 2 [place] T VISIT CLINIC 15 PSC MINUTES [facility] - 2 2 [facility] OUTPATIEN INC T OFFICE 81203 ARAMBULA ARAMBULA OUTPATIEN 2 2 DON DON T VISIT 15 MINUTES OFFICE 13180 ARAMBULA ARAMBULA OUTPATIEN 2 2 DON DON T VISIT 15 MINUTES [facility]OSP[facility] - 2 2 [facility] INC T [facility] - 2 2 [facility] INC T OFFICE 33256 ARAMBULA ARAMBULA OUTPATIEN 2 2 DON DON T VISIT 15 MINUTES OFFICE 45290 ARAMBULA ARAMBULA OUTPATIEN 2 2 DON DON T VISIT 15 MINUTES OFFICE 97763 ARAMBULA ARAMBULA OUTPATIEN 1 1 DON DON T VISIT 15 MINUTES OFFICE 71851 ARAMBULA ARAMBULA OUTPATIEN 1 1 DON DON T VISIT 15 MINUTES OFFICE 53919 [facility] PAWSAT OUTPATIEN 1 1 MAR JAN T VISIT 10 MINUTES OFFICE 19980 ARAMBULA ARAMBULA OUTPATIEN 1 1 DON DON T VISIT 15 MINUTES EMERGENCY 77644 EMILY BRISENO BAB 1 1 EMERGENCY [facility] T VISIT MODERATE SEVERITY OFFICE 62273 ARAMBULA ARAMBULA OUTPATIEN 1 1 DON DON T VISIT 15 MINUTES OFFICE 07231 ARAMBULA ARAMBULA OUTPATIEN 1 1 DON DON T VISIT 15 MINUTES [facility]OSP[facility] - 1 1 [facility] INC T OFFICE 74473 ARAMBULA ARAMBULA OUTPATIEN 1 1 DON DON T VISIT 15 MINUTES OFFICE 02425 [place] OUTPATIEN 1 1 [place] T NEW 30 CLINIC MINUTES PSC OFFICE 08662 ARAMBULA ARAMBULA OUTPATIEN 1 1 DON DON T VISIT 15 MINUTES OFFICE 28185 PAWSAT PAWSAT OUTPATIEN 1 1 ISMAEL Chan NEW 20 MINUTES HOSP[facility] - 1 1 [facility] T OFFICE 58345 [facility] OUTPATIEN 1 1 [facility] T VISIT CLINIC 25 PSC MINUTES OFFICE 68790 ARAMBULA ARAMBULA OUTPATIEN 1 1 DON DON T VISIT 15 MINUTES OFFICE 12185 ARAMBULA ARAMBULA OUTPATIEN 1 1 DON DON T VISIT 15 MINUTES OFFICE 27137 ARAMBULA ARAMBULA OUTPATIEN 1 1 DON DON T VISIT 15 MINUTES OFFICE 31104 [facility] JEAN-BAPTISTE JR OUTPATIEN 1 1 [facility] VISIT HOSPITAL 15 P MINUTES OFFICE 83554 ARAMBULA ARAMBULA OUTPATIEN 1 1 DON DON T VISIT 15 MINUTES OFFICE 25843 ARAMBULA ARAMBULA OUTPATIEN 1 1 DON DON T VISIT 15 MINUTES HOSPITAL [facility] - 1 1 [facility] OUTPATIEN INC T OFFICE 22095 ARAMBULA ARAMBULA OUTPATIEN 1 1 DON DON T VISIT 15 MINUTES OFFICE 61562 ARAMBULA ARAMBULA OUTPATIEN 0 0 DON DON T VISIT 15 MINUTES OFFICE 00944 ARAMBULA ARAMBULA OUTPATIEN 0 0 DON DON T VISIT 15 MINUTES OFFICE 37225 ARAMBULA ARAMBULA OUTPATIEN 0 0 DON DON T VISIT 15 MINUTES OFFICE 39656 ARAMBULA ARAMBULA OUTPATIEN 0 0 DON DON T VISIT 15 MINUTES EMERGENCY 57117 EMILY STARK 0 0 EMERGENCY [facility] DEPARTMEN SERVICES T VISIT HIGH/URGE NT SEVERITY [facility] 0 0 [facility] OUTPAT[facility]EN INC T EMERGENCY 99741 [facility] 0 0 [facility] DEPARTMEN INC T VISIT LOW/MODER SEVERITY OFFICE 12520 ARAMBULA ARAMBULA OUTPATIEN 0 0 DON DON T VISIT 15 MINUTES [facility] - 0 0 [facility] T OFFICE 40152 ARAMBULA ARAMBULA OUTPATIEN 0 0 DON DON T VISIT 15 MINUTES OFFICE 85564 [facility] JR OUTPATIEN 0 0 LTH VARUN T VISIT UROLOGY 15 PSC MINUTES OFFICE 32792 ARAMBULA ARAMBULA OUTPATIEN 0 0 DON DON T VISIT 15 MINUTES OFFICE 05702 [facility] JR OUTPATIEN 0 0 LTH VARUN T NEW 20 UROLOGY MINUTES PSC OFFICE 05854 ARAMBULA ARAMBULA OUTPATIEN 0 0 DON DON T VISIT 15 MINUTES OFFICE 75525 ARAMBULA ARAMBULA OUTPATIEN 0 0 DON DON T VISIT 15 MINUTES OFFICE 65246 ARAMBULA, ARAMBULA, OUTPATIEN 0 0 DON R DON R T VISIT 15 MINUTES [facility]OSP[facility] 0 0 [facility] T EMERGENCY 10934 EMILY STARK, 0 0 EMERGENCY [facility] DEPARTMEN SERVICES T VISIT HIGH/URGE ASSOCIATE NT S SEVERITY EMERGENCY 53675 [facility] 0 0 [facility] DEPARTMEN INC T VISIT LIMITED/M INOR PROB OFFICE 28028 ARAMBULA, ARAMBULA, OUTPATIEN 0 0 DON R DON R T VISIT 15 MINUTES OFFICE 26705 JAIME GEIGER, OUTPATIEN 0 0 [place] MADDY E T VISIT CLINIC 15 PSC MINUTES OFFICE 76303 TYESHA ARABMULA OUTPATIEN 0 0 DON R DON R T VISIT 15 MINUTES EMERGENCY 50430 [facility] 0 0 [facility] DEPARTMEN INC T VISIT LIMITED/M INOR PROB EMERGENCY 58629 EMILY GUNN, 0 0 [facility] T VISIT HIGH/URGE ASSOCIATE NT S SEVERITY [facility] - 0 0 [facility] OUTPATIEN INC T OFFICE 51315 TYESHA ARAMBULA OUTPATIEN 0 0 DON R DON R T VISIT 15 MINUTES [facility]OSP[facility] - 0 0 [facility] OUTPATIEN INC T OFFICE 51517 TYESHA ARAMBULA OUTPATIEN 0 0 DON R DON R T VISIT 15 MINUTES OFFICE 83895 [place] [facility] MCLAINPATIAINS[place] 0 0 AND HAND NANDO A T NEW 10 SURGEONS MINUTES [facility] - 0 0 [facility] OUTPATIEN INC T OFFICE 04722 TYESHA ARAMBULA OUTPATIEN 0 0 DON R DON R T VISIT 25 MINUTES OFFICE 10771 TYESHA ARAMBULA OUTPATIEN 0 0 DON R DON R T VISIT 15 MINUTES OFFICE 71620 TYESHA ARAMBULA OUTPATIEN 9 9 DON R DON R T VISIT 15 MINUTES OFFICE 41576 TYESHA ARAMBULA OUTPATIEN 9 9 DON R DON R T VISIT 15 MINUTES [facility] - 9 9 [facility] OUT[facility]IEN INC T EMERGENCY 24119 EMILY STARK, DEPT 9 9 EMERGENCY MADDY S VISIT SERVICES HIGH SEVERITY& ASSOCIATE THREAT S [facility] IN[facility]IENT INC OFFICE 56484 TYESHA ARAMBULA OUTPATIEN 9 9 DON R DON R T VISIT 15 MINUTES OFFICE 69633 TYESHA ARAMBULA OUTPATIEN 9 9 DON R DON R T VISIT 15 MINUTES OFFICE 52738 TYESHA ARAMBULA OUTPATIAINSLEY 9 9 DON R DON R T VISIT 15 MINUTES OFFICE 62161 TYESHA ARAMBULA OUTPATIEN 9 9 DON R DON R T VISIT 25 MINUTES EMERGENCY 97435 EMILY RAINES, 9 9 EMERGENCY [facility] SERVICES T VISIT HIGH/URGE ASSOCIATE NT S SEVERITY [facility] - 9 9 [facility] OUTPATIEN INC T EMERGENCY 18724 OMARI 9 9 [facility] T VISIT MODERATE SEVERITY [facility] - 9 9 [facility] OUTPATIEN INC T OFFICE 57093 BANDAR CARRASCO 9 9 AKIKO Johnson T VISIT CLINIC 25 PSC MINUTES OFFICE 29715 TYESHA ARAMBULA OUTPATIEN 9 9 DON R DON R T VISIT 15 MINUTES OFFICE 97206 BANDAR CARRASCO 9 9 AKIKO Johnson T VISIT CLINIC 25 PSC MINUTES [facility]OSPITAL [facility] - 9 9 [facility] OUTPATIEN INC T OFFICE 69671 TYESHA ARAMBULA OUTPATIEN 9 9 DON R DON R T VISIT 15 MINUTES OFFICE 12838 TYESHA ARAMBULA OUTPATIEN 9 9 DON R DON R T VISIT 15 MINUTES OFFICE 96321 TYESHA ARAMBULA OUTPATIEN 8 8 DON R DON R T VISIT 15 MINUTES OFFICE 09260 TYESHA ARAMBULA OUTPATIEN 8 8 DON R DON R T VISIT 15 MINUTES OFFICE 04426 TYESHA ARAMBULA OUTPATIEN 8 8 DON R DON R T VISIT 15 MINUTES OFFICE 28794 NEW BANDAR BELL 8 8 [place] MAHESH M T NEW 45 CLINIC MINUTES [facility] 8 8 [facility] EMERGENCY ACKERMAN, DEPT 8 8 PHYS CARL W VISIT [place] HIGH SEVERITY& THREAT FUNJ EMERGENCY 94287 [facility] 8 8 [facility] VISIT MODERATE SEVERITY [facility]OSPITAL [facility] - [address] [facility] 83854 TYESHA ARAMBULA OUTPATIEN 8 8 DON R DON R T VISIT 15 MINUTES OFFICE 32391 TYESHA ARAMBULA OUTPATIEN 8 8 DON R DON R T VISIT 15 MINUTES OFFICE 54616 TYESHA ARAMBULA OUTPATIEN 8 8 DON R DON R T VISIT 15 MINUTES OFFICE 39759 TYESHA ARAMBULA OUTPATIEN 8 8 DON R DON R T VISIT 15 MINUTES OFFICE 99283 TYESHA ARAMBULA OUTPATIEN 8 8 DON R DON R T VISIT 15 MINUTES
--- OUTSIDE RECORDS SUMMARY | 2017-08-19 20:54 | External Medical Summary Rpt | CCD ---
Author Author , KARLIE POPERAJAN Address Unknown Phone [email or web address] Care Team Providers Care Supervisor Steffen House Name Role Phone ALFARIS MOH, ALFARIS Unavailable Unavailable MOH ALLRAN JR MANJINDER, ALLRAN Unavailable Unavailable JR MANJINDER ANJUR-KAPALI CORNELIA, Unavailable Unavailable ANJUR-KAPALI CORNELIA [facility] Unavailable Unavailable [facility], [facility]available Unavailable [facility], [facility] ALONSO BRO, GUPTA Unavailable Unavailable BRO BEINEKE ANGELIKA, BEINEKE Unavailable Unavailable ANGELIKA BESSON CASSANDRA, BESSON Unavailable Unavailable CASSANDRA BESSON, CARITO A, Unavailable Unavailable BESSON, CARITO A SALVADOR, SALVADOR Unavailable Unavailable SALVADOR ALL, SALVADOR ALL Unavailable Unavailable [facility], Unavailable Unavailable [facility] Unavailable Unavailable SERVICE, [facility] Unavailable Unavailable SERVICE, [facility] ANDREA RAE IGN, Unavailable Unavailable ANDREA RAE IGN ACKERMAN, CARL W, Unavailable Unavailable ACKERMAN, CARL W DAMIAN SAJAN, DAMIAN SAJAN Unavailable Unavailable [facility] Unavailable Unavailable [facility], [facility] Unavailable Unavailable ANESTHESIA, [facility]IA [facility]available [facility]available [facility] & Unavailable Unavailable DUBILIER, [facility], Unavailable Unavailable [facility] BARROW JANET, BARROW Unavailable Unavailable JANET [facility] Unavailable Unavailable [place], [facility] Unavailable Unavailable [facility], [facility] COUNT INCLUDES THE [facility] Unavailable Unavailable PSC, COUNT INCLUDES THE [facility] OF Unavailable Unavailable [...] BOOTH S, Unavailable Unavailable MADDY BOOTH S [facility] Unavailable Unavailable INC, [facility] Unavailable Unavailable HOSPITAL P, [facility] HOSPITAL P [facility], Unavailable Unavailable [facility] HORN SAJAN, HORN SAJAN Unavailable Unavailable HORN, MADDY E, Unavailable Unavailable HORN, MADDY E BRENNAN JOSHI, BRENNAN Unavailable Unavailable ADI MAK, MAK Unavailable Unavailable LUCAS TRA, LUCAS TRA Unavailable Unavailable MANUELA ORTEGA, MANUELA Unavailable Unavailable ORTEGA CASEY CHARLES, CASEY CHARLES Unavailable Unavailable [facility] Un[facility] Unavailable GROUP PS, [facility] Un[facility] Un[facility], [facility] Unavailable Unavailable IM[facility]ING [facility], [facility] REPLACED BY [facility] Unavailable Unavailable MEDICAL G, REPLACED BY [facility] KORBA ORTEGA, KORBA ORTEGA Unavailable [...] YOJANA E, Unavailable Unavailable ISMAEL, YOJANA E [facility] Unavailable Unavailable [facility], [facility] Unavailable Unavailable LABORATORY, [facility] Unavailable Unavailable SERVICES, [facility] RAY AND, Unavailable Unavailable RAY AND MAYDA SIMMONS JEN Unavailable Unavailable F, JEN OHARA JR F MARCO TRISTAN P, Unavailable Unavailable MARCO TRISTAN WILLIAM F, Unavailable Unavailable JEN GAMINO CLAUDETTE ORTEGA, CLAUDETTE Unavailable Unavailable ORTEGA ARABELLAMAHESH IRELAND M, Unavailable Unavailable ARABELLAMAHESH IRELAND M [facility] Unavailable Unavailable [facility], [facility] PSC NANDO PEREZ, Unavailable Unavailable NANDO [...] Unavailable Unavailable EQUIPME, [facility] Unavailable Unavailable EMERGENCY PHYS, [facility] ADRIAN SHE, Unavailable Unavailable NISHA SHE [facility], Unavailable Unavailable [facility], Unavailable Unavailable [facility] TYESHA DON, Unavailable Unavailable ARAMBULA DON ARAMBULA DON, Unavailable Unavailable ARAMBULA REMBERTO ARAMBULA, REMBERTO R, Unavailable Unavailable TYESHA, REMBETRO R LILO RALPH, LILO Unavailable Unavailable ONOFRE URIBE, Unavailable Unavailable ONOFRE UGNN FOR, WALKER Unavailable Unavailable FOR WEHRMAN III VARUN, Unavailable Unavailable WEHRMAN III VARUN HENRY, HENRY Unavailable Unavailable MUSA MAT, MUSA MAT Unavailable Unavailable Purpose Continuity of Care Document - 11-18-2007 through 2016 Problems Code Diagnosis DOS Provider Status [id number] UNSPECIFIED 07-17-2017 [facility] OF [place] HEAD [facility]A INITIAL ENCOUNTER [id number] CONTUSION 07-17-2017 ST. OF LEFT [place] FOREARM PARTHA INITIAL ENCOUNTER N22630S LACERATION 07-17-2017 ST. W/O FOREIGN JESSE BODY LT PARTHA FOREARM INITIAL B63595 OTHER LONG 07-17-2017 . TERM [place] CURRENT PARTHA DRUG THERAPY Z9181 HISTORY OF 07-17-2017 [facility]. [place] JESSE GRANT E875 HYPERKALEMI 07-06-2017 [facility] D649 ANEMIA 07-02-2017 [facility]NSPECIFIED [facility] I10 ESSENTIAL 07-02-2017 [facility] PRIMARY [facility] HYPERTENSIO INC N K219 GASTRO-ESOP 07-02-2017 [facility] H REFLUX [facility] DISEASE INC WITHOUT ESOPHAGITIS N183 CHRONIC 07-02-2017 [facility] KIDNEY [facility] DISEASE INC STAGE 3 MODERATE E64903 UNSPECIFIED 06-28-2017 [facility]HMA HOME WITH ACUTE MEDICAL EXACERBATIO EQUIPME N J90 PLEURAL 06-16-2017 [place] E[facility] NOT IMAGING ASS ELSEWHERE CLASSIFIED R0602 SHORTNESS 06-16-2017 [facility] R062 WHEEZING 06-16-2017 [facility] R918 OTHER 06-16-2017 [place] NONSPECIFIC MEDICAL ABNORMAL IMAGING ASS FINDING OF LUNG FIELD I119 HYPERTENSIV 06-01-2017 [facility] E HEART PHYSICIANS DISEASE GROUP WITHOUT HEART FAILURE I4891 UNSPECIFIED 06-01-2017 [facility] ATRIAL PHYSICIANS FIBRILLATIO GROUP N R0600 DYSPNEA 06-01-2017 [facility] UNSPECIFIED [facility] INC Z950 PRESENCE OF 06-01-2017 [facility] CARDIAC PHYSICIANS PACEMAKER GROUP I2510 ASHD MATCH-E-BE-NASH-SHE-WISH BAND 04-27-2017 [facility] 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 ANGINA PECTORIS I351 NONRHEUMATI 04-27-2017 [facility] C AORTIC PHYSICIANS VALVE GROUP INSUFFICIEN CY R296 REPEATED 04-27-2017 [facility] FALLS PHYSICIANS GROUP R5383 OTHER 04-27-2017 [facility] FATIGUE PHYSICIANS GROUP B60605 PAIN IN 04-23-2017 [place] LEFT ARM MEDICAL IMAGING ASS D44099 PAIN IN 04-23-2017 [facility] LEFT UPPER [facility] ARM INC R2232 LOCALIZED 04-23-2017 [facility] SWELLING [facility] MASS AND INC LUMP LEFT UPPER LIMB R600 LOCALIZED 04-23-2017 [place] EDEMA MEDICAL IMAGING ASS C8597 NON-HODGKIN 04-20-2017 [facility] LYMPHOMA [facility] UNSPECIFIED INC SPLEEN I272 OTHER 04-20-2017 [facility] SECONDARY [facility] PULMONARY INC HYPERTENSIO N I495 SICK SINUS 04-20-2017 [facility] SYNDROME PHYSICIANS GROUP R001 BRADYCARDIA 04-20-2017 [facility] PHYSICIANS UNSPECIFIED GROUP R002 PALPITATION 04-20-2017 [facility] S PHYSICIANS GROUP I482 CHRONIC 04-02-2017 [place] [facility] ATRIAL SERV FIBRILLATIO FOUNDATION N C8590 NON-HODGKIN 03-22-2017 [place] LYMPHOMA MEDICAL UNS IMAGING ASS UNSPECIFIED SITE I209 ANGINA 03-16-2017 [facility] PECTORIS [facility] UNSPECIFIED INC I208 OTHER FORMS 03-10-2017 [facility] OF ANGINA [facility] PECTORIS INC R14358 PERSONAL 02-26-2017 [place] [facility] H[facility]ORY [facility] SERV [facility] THROMBOSIS& EMBOLISM I12036 ACUTE EMBO 02-23-2017 [facility] THROMB UNS PHYSICIANS DEEP VEINS GROUP UNS LOW EXTREM R42 DIZZINESS 02-23-2017 [facility] AND PHYSICIANS GIDDINESS GROUP I499 CARDIAC 02-03-2017 [facility] ARRHYTHMIA [facility] I517 CARDIOMEGAL 02-03-2017 [place] Y [facility]ICAL [facility] ASS B23934 SPONDYLOSIS 02-03-2017 [place] W/O MEDICAL MYELOPATH/R IMAGING ASS ADICULOPATH Y CERV RGN H04779 OTHER 02-03-2017 [place] CERVICAL MEDICAL DISC IMAGING ASS DEGENERATIO N AT C5-C6 LEVEL H23170 OTHER 02-03-2017 [place] CERVICAL MEDICAL DISC IMAGING ASS DEGENERATIO N AT C6-C7 LEVEL M542 CERVICALGIA 02-03-2017 [facility] M545 LOW BACK 01-13-2017 [facility] PAIN [facility] INC R109 UNSPECIFIED 01-13-2017 [facility] ABDOMINAL [facility] PAIN INC R110 NAUSEA 01-13-2017 [facility] Z8673 PERSONAL HX 01-13-2017 [facility] TIA & [facility] CEREB INC INFARCT NO RESID DEFICIT Y79940 PAIN IN 01-05-2017 [place] LEFT HIP MEDICAL IMAGING ASS Y52890S FRACTURE 01-05-2017 [facility] LT IMAGING ASS PUBIS INIT ENC CLOS FX D41696A OTHER SPEC 01-05-2017 [facility] FX LT PUBIS PHYSICIANS, INITIAL PLLC CLOS FRACTURE J209 ACUTE 11-30-2016 ISMA[facility] SIMMONS BRONCHITIS UNSPECIFIED Z6830 BODY MASS 11-30-2016 ISMAEL JR INDEX BMI 30.0-30.9 ADULT H903 SENSORINEUR 08-04-2016 [place] EAR NOSE AL HEARING AND THROAT LOSS BILATERAL H905 UNSPECIFIED 08-04-2016 [facility] AL HEARING LOSS D539 NUTRITIONAL 06-08-2016 [facility] ANEMIA HEALTH UNSPECIFIED CAMPUS D62 ACUTE 06-08-2016 [facility] POSTHEMORRH HEALTH AGIC ANEMIA CAMPUS R410 DISORIENTAT 06-08-2016 [facility] ION HEALTH UNSPECIFIED CAMPUS J64256O FX UNS PART 06-08-2016 [facility] NECK LT HEALTH FEMUR CAMPUS SUBSQT CLOS FX RTN 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 M659 SYNOVITIS 04-27-2016 [facility] & TENOSYNOVIT DUBILIER IS UNSPECIFIED R2242 LOCALIZED 04-27-2016 [place] SWELLING MEDICAL MASS AND IMAGING ASS LUMP LEFT LOWER LIMB I767PSN INFECTION 04-27-2016 [facility] FOLLOWING [facility] PROCEDURE INC INITIAL ENCOUNTER Z4889 ENCOUNTER 04-27-2016 [facility] FOR OTHER [facility] SPECIFIED INC SURGICAL AFTERCARE Z471 AFTERCARE 04-23-2016 [place] FOLLOWING MEDICAL JOINT IMAGING ASS REPLACEMENT SURGERY Z7401 BED 04-09-2016 [facility]BULANCE STATUS SERVICE I129 HYPERTENSIV 04-05-2016 [facility] Johnson CKD [facility] W/STAGE 1-4 HOSPITAL P CKD OR UNS CKD D11251 ASHD MATCH-E-BE-NASH-SHE-WISH BAND 04-05-2016 [facility] W/UNS INC ANGINA PECTORIS Z76966 PAIN IN 04-05-2016 [place] LEFT THIGH MEDICAL IMAGING ASS N179 ACUTE 04-05-2016 [facility] P UNSPECIFIED R079 CHEST PAIN 04-05-2016 [place] UNSPECIFIED MEDICAL IMAGING ASS F93348G FX UNS PART 04-05-2016 [facility] NECK LT PHYSICIANS, FEMUR PLLC INITIAL ENC CLOS FX C65310M UNS 04-05-2016 [place] INTRACAPSUL MEDICAL AR FX LT IMAGING ASS FEMUR INIT ENC CLOS FX C58JUST UNSPECIFIED 04-05-2016 [facility] FALL PHYSICIANS INITIAL GROUP ENCOUNTER Z9889 OTHER 04-05-2016 [place] SPECIFIED MEDICAL POSTPROCEDU IMAGING ASS [facility] STATES R0781 PLEURODYNIA 03-30-2016 [place] [facility] R0789 OTHER CHEST 03-30-2016 [facility] PAIN PHYSICIANS, PLLC R911 SOLITARY 03-30-2016 [place] PULMONARY MEDICAL NODULE IMAGING ASS R1031 RIGHT LOWER 03-23-2016 [facility] QUADRANT PHYSICIANS PAIN GROUP R197 DIARRHEA 02-25-2016 COMMUN[facility] UNSPECIFIED ANESTH OF THE BLUE L299 PRURITUS 02-21-2016 [facility] UNSPECIFIED YOJANA V61900 SPONDYLOSIS 02-21-2016 [facility] W/O YOJANA MYELOPATH/R ADICULPATHY LS RGN N281 CYST OF 02-21-2016 [place] KIDNEY MEDICAL ACQUIRED IMAGING ASS R1030 LOWER 02-21-2016 [facility] ABDOMINAL YOJANA PAIN UNSPECIFIED R312 OTHER 02-21-2016 [facility] MICROSCOPIC YOJANA HEMATURIA R319 HEMATURIA 02-21-2016 [place] UNSPECIFIED MEDICAL IMAGING ASS Z6833 BODY MASS 02-21-2016 [facility] INDEX BMI YOJANA 33.0-33.9 ADULT R05 COUGH 01-07-2016 [place] [facility] R509 FEVER 01-07-2016 [place] UNSPECIFIED MEDICAL IMAGING ASS A084 VIRAL 12-18-2015 [facility] INTESTINAL [facility]NA INFECTION UNSPECIFIED M150 PRIMARY 09-30-2015 [facility] GENERALIZED PHYSICIANS DAVID OSTEOARTHRI TIS Z23 ENCOUNTER 08-30-2015 [facility] FOR [place]NA IMMUNIZATIO N Z6831 BODY MASS 08-30-2015 [facility] INDEX BMI YOJANA 31.0-31.9 ADULT 2761 HYPOSMOLALI 08-02-2015 [facility] TY AND/OR [facility] HYPONATREMI INC A 2859 UNSPECIFIED 08-02-2015 [facility] ANEMIA [facility] INC 78561 UNS 08-02-2015 [facility] GASTRITIS&G [facility] ASTRODUODIT INC IS W/O MENTION HEMORR 71458 PAIN IN 08-02-2015 [place] JOINT MEDICAL PELVIC IMAGING ASS REGION AND THIGH 07569 OTHER 07-15-2015 [facility] DYSPNEA AND CO AMBULANCE RESPIRATORY TAXIN ABNORMALITI ES 0093 DIARRHEA OF 07-02-2015 [facility] PRESUMED YOJANA INFECTIOUS ORIGIN 4011 ESSENTIAL 07-02-2015 [facility] HYPERTENSIO YOJANA N, BENIGN 5853 CHRONIC 07-02-2015 [facility] KIDNEY [facility] DISEASE STAGE III (MODERATE) 7242 LUMBAGO 07-02-2015 [place] [address] OTHER 07-02-2015 ISMAEL MALAISE AND YOJANA FATIGUE V8533 BODY MASS 07-02-2015 [facility] INDEX YOJANA 33.0-33.9 ADULT 7295 PAIN IN 06-24-2015 [place] SOFT MEDICAL TISSUES OF IMAGING ASS LIMB 7823 EDEMA 06-24-2015 [facility] 2724 OTHER AND 06-21-2015 [facility] UNSPECIFIED YOJANA HYPERLIPIDE SHERYL 72806 DEHYDRATION 06-21-2015 ISMAEL YOJANA 412 OLD 06-21-2015 [facility] MYOCARDIAL Y[facility]NA INFARCTION 99447 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 [facility] NODE [place] DYSFUNCTION 79438 ATROPHIC 06-21-2015 [facility] GASTRITIS YOJANA WITHOUT MENTION OF HEMORRHAGE 34148 OTHER 06-21-2015 [place] ALTERATION [place] [address] FEVER 06-21-2015 [facility] UNSPECIFIED YOJANA 58144 ALTERED 06-21-2015 [place] MENTAL MEDICAL STATUS IMAGING ASS 7862 COUGH 06-21-2015 [place] V1079 PERSONAL HX 06-21-2015 [facility] OTH [facility] LYMPHATIC&H EMATOPOIETI C NEOPLASM V1254 PERSONAL HX 06-21-2015 [facility] TIA & CI YOJANA W/O RESIDUAL DEFICITS 5990 URINARY 06-12-2015 [facility] TRACT PHYSICIANS INFECTION LA SITE NOT SPECIFIED 94889 OTH & UNS E 05-28-2015 [facility] COLI [facility] INFECTION INC CLASS ELSW UNS SITE 43404 UNSPECIFIED 05-24-2015 [place] [address] GENERALIZED 05-24-2015 ISMAEL YOJANA OSTEOARTHRO SIS UNSPECIFIED SITE 7213 LUMBOSACRAL 05-24-2015 IS[facility] YOJANA SPONDYLOSIS WITHOUT MYELOPATHY V8534 BODY MASS 05-24-2015 [facility] INDEX YOJANA 34.0-34.9 ADULT 21060 ABDOMINAL 04-15-2015 [facility] PAIN RIGHT PHYSICIANS LOWER GROUP QUADRANT 36564 PAIN IN 03-26-2015 [facility] JOINT, [facility] SHOULDER INC REGION 24003 DIARRHEA 03-26-2015 [facility] INC 35177 OTH MALIG 03-01-2015 [place] LYMPHOMAS MEDICAL UNS SITE IMAGING ASS XTRANOD&SEBAS ID ORGN 5932 ACQUIRED 03-01-2015 [place] CYST OF MEDICAL KIDNEY IMAGING ASS 93466 ABDOMINAL 03-01-2015 [facility] PAIN, LEFT [facility] LOWER INC QUADRANT 86173 ESOPHAGEAL 01-30-2015 [facility] RE[facility]UX PH[facility] 39099 GASTR ULCR 01-30-2015 [facility] UNS PHYS SURG ACUT/CHRN CTR W/O HEMOR PERF/OBST 5379 UNSPECIFIED 01-30-2015 [facility] DISORDER [facility]MA & OF STOMACH DUBILIER AND DUODENUM 35035 NAUSEA 01-30-2015 [facility] [place] ANESTHESIA 76375 ABDOMINAL 01-30-2015 [facility] PAIN, [place] EPIGASTRIC ANESTHESIA 49288 NONEXUDATIV 01-29-2015 [place] 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 87777 REGULAR 01-29-2015 [place] ASTIGMATISM [facility] INSTITUTE 52298 OTHER 01-25-2015 [facility] SPECIFIED YOJANA ERYTHEMATOU S CONDITION OTHER 460 ACUTE 12-19-2014 [facility] NASOPHARYNG [place]NA ITIS 33814 ASTHMA, 12-19-2014 [facility] UNSPECIFIED YOJANA , UNSPECIFIED STATUS 4660 ACUTE 12-16-2014 [facility] BRONCHITIS [facility] INC V8535 BODY MASS 12-07-2014 [facility] INDEX YOJANA 35.0-35.9 ADULT 4779 ALLERGIC 10-30-2014 [facility] RHINITIS [place] CAUSE UNSPECIFIED 4019 UNSPECIFIED 10-18-2014 [facility] ESSENTIAL [facility] HYPERTENSIO INC N 09965 COR 10-18-2014 [facility] ATHEROSLERO [facility] UNSPEC INC TYPE VESSEL MATCH-E-BE-NASH-SHE-WISH BAND/MORRO T 36678 CHEST PAIN 10-18-2014 [place] [facility] UNSPECIFIED SERV FOUNDATION 70194 CORONARY 10-11-2014 [facility] OSIS MATCH-E-BE-NASH-SHE-WISH BAND MEDICAL G CORONARY ARTERY 7851 PALPITATION 10-11-2014 [facility] G 57479 PRECORDIAL 10-11-2014 [facility] MEDICAL G 4610 ACUTE 10-01-2014 [facility] MAXILLARY [place] SINUSITIS 4720 CHRONIC 10-01-2014 [facility] RHINITIS YOJANA 7881 DYSURIA 10-01-2014 ISMAEL YOJANA 77488 SHORTNESS 09-18-2014 [facility] MEDICAL IMAGING ASS 4139 OTHER AND 09-12-2014 [facility] UNSPECIFIED [facility] ANGINA INC PECTORIS 5758 OTHER 09-12-2014 [facility] SPECIFIED [facility] DISORDER OF INC GALLBLADDER 99875 OTHER 09-12-2014 [facility] CONVULSIONS [facility] INC 90195 OTHER CHEST 09-12-2014 [facility] EMERGENCY PHYS V140 PERSONAL 09-12-2014 [facility] HISTORY OF [facility] ALLERGY TO [facility] P PENICILLIN V148 PERSONAL 09-12-2014 [facility] HISTORY [facility] ALLERGY [facility] P SPEC MEDICINAL AGTS V1582 PERS HX 09-12-2014 [facility] TOBACCO USE [facility] PRESENTING INC HAZARDS HEALTH V719 OBSERVATION 09-12-2014 [place] FOR MEDICAL UNSPECIFIED IMAGING ASS SUSPECTED CONDITION 78251 UNSPEC 08-28-2014 [facility] DISORDERS YOJANA BURSAE&TEND ONS SHOULDER REGION 69162 CONTUSION 08-28-2014 [facility] OF SHOULDER YOJANA REGION [...] MYOSITIS 7827 SPONTANEOUS 08-06-2014 [facility] ECCHYMOSES YO[facility]NA 46525 DIVERTICULI 07-24-2014 [facility] TIS OF [place] COLON 7243 SCIATICA 07-16-2014 [facility] 5693 HEMORRHAGE 05-21-2014 [facility] OF RECTUM [place]NA AND ANUS 7802 SYNCOPE AND 05-21-2014 [facility] COLLAPSE [place]NA 5589 OTH&UNSPEC 05-09-2014 [facility] NONINFECTIO [facility] P GASTROENTER ITIS&COLITI S 17520 NAUSEA WITH 05-09-2014 [place] VOMITING [facility] P E9390 ANTIDEPTSSN 05-09-2014 [facility] T CAUS [facility] P EFFECT THERAPEUTIC USE 45297 OTHER 05-08-2014 [facility] SPECIFIED N EMERGENCY CARDIAC PHYS DYSRHYTHMIA S 5789 UNSPECIFIED 05-08-2014 [facility] HEMORRHAGE [place]NA OF GASTROINTES TINAL TRACT 7852 UNDIAGNOSED 05-08-2014 [place] [facility] CARDIAC SERV MURMURS FOUNDATIO 496 CHRONIC 03-06-2014 [place] AIRWAY MEDICAL OBSTRUCTION IMAGING ASS NEC 5110 PLEURISY 03-06-2014 [facility] WITHOUT [place]NA MENTION EFFUS/CURRE NT TB 7197 DIFFICULTY 03-06-2014 [place] IN WALKING MEDICAL IMAGING ASS 27576 CONTUSION 03-06-2014 [facility] OF FOOT YOJANA 8488 OTHER 02-26-2014 [facility] SPECIFIED N EMERGENCY SITES OF PHYS SPRAINS AND STRAINS V141 PERSONAL 02-26-2014 [facility] HOSP ALLERGY INC OTHER ANTIBIOTIC AGENT 70317 UNSPECIFIED 01-26-2014 [facility] VIRAL N EMERGENCY INFECTION PHYS IN CCE & UNS SITE 7245 UNSPECIFIED 01-26-2014 [facility] BACKACHE N EMERGENCY PHYS 0091 COLITIS 01-04-2014 [facility] ENTERIT&GAS HOME TROENTERIT MEDICAL INF ORIGIN EQUIPME 436 ACUTE BUT 01-04-2014 [facility] ILL-DEFINED HOME MEDICAL CEREBROVASC EQUIPME ULAR DISEASE 7231 CERVICALGIA 10-24-2013 [facility] 3674 PRESBYOPIA 07-03-2013 [facility] V431 LENS 07-03-2013 [place] REPLACED BY EYE OTHER INSTITUTE MEANS 7224 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-30-2013 [facility] [place] 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 26956 MACULAR 04-04-2013 TYESHA WINTER DON N OF RETINA UNSPECIFIED 05543 STRABISMIC 03-22-2013 [place] [facility]ICAL AMBLYOPIA SERV FOUNDATIO 55163 OTHER 03-22-2013 [place] MEDICAL VITREOUS SERV OPACITIES FOUNDATIO 8052 CLOS FX 02-27-2013 [facility] DORS DON VERTEBRA W/O MENTION SP CORD INJURY 86360 LEUKOCYTOSI 02-23-2013 [place] [facility] UNSPECIFIED SERVICES V5878 AFTERCARE 02-23-2013 [place] FOLLOW EMERGENCY SURGERY SERVICES [place] 81289 ACUTE PAIN 02-22-2013 [facility] DUE TO EMERGENCY TRAUMA SERVICES 90785 PATHOLOGIC 02-22-2013 [place] FRACTURE OF ANESTHESIA VERTEBRAE GROUP PS V7283 OTHER 02-21-2013 [facility] [place] SPECIFIED RADIOLOGY PRE-OPERATI VE EXAMINATION 81257 DISPLCMT 02-20-2013 [place] LUMBAR MEDICAL INTERVERT IMAGING ASS DISC W/O MYELOPATHY 93749 SPINAL STEN 02-20-2013 [place] LUMB REG MEDICAL W/O IMAGING ASS NEUROGENIC CLAUDICATIO N E8888 OTHER FALL 02-20-2013 [facility] 6259 UNSPEC 02-15-2013 [place] SYMPTOM MEDICAL ASSOC IMAGING ASS W/FEMALE GENITAL ORGANS 7840 HEADACHE 02-15-2013 [place] [facility] 8470 NECK SPRAIN 02-15-2013 [place] AND STRAIN EMERGENCY SERVICES 8472 LUMBAR 02-15-2013 [place] SPRAIN AND EMERGENCY STRAIN SERVICES 8500 CONCUSSION 02-15-2013 [place] WITH NO EMERGENCY LOSS OF SERVICES CONSCIOUSNE SS 9222 CONTUSION 02-15-2013 [place] OF EMERGENCY ABDOMINAL SERVICES WALL 86944 CONTUSION 02-15-2013 [facility] OF HIP [facility] INC 98282 HEAD 02-15-2013 [place] INJURY, MEDICAL UNSPECIFIED IMAGING ASS V4364 HIP JOINT 02-15-2013 [place] REPLACEMENT MEDICAL BY OTHER IMAGING ASS MEANS 4659 ACUTE URIS 02-13-2013 [facility] OF DON UNSPECIFIED SITE 7804 DIZZINESS 02-13-2013 [place] AND [facility] GIDDINESS 11200 PAIN IN 01-18-2013 [facility] JOINT, MEM HOS[facility] MULTIPLE INC SITES 06294 PAIN IN 01-17-2013 [facility] JOINT, DON LOWER LEG 9597 INJURY 01-17-2013 [place] OTHER&UNSPE DON CIFIED KNEE LEG ANKLE&FOOT 55524 UNSPECIFIED 12-27-2012 [place] [place] [address] METHICILLIN 12-23-2012 [facility] RESISTANT [facility] STAPHYLOCOC INC CUS AUREUS 64532 OTHER 12-23-2012 [facility] DISEASES OF MEM HOSP NASAL INC CAVITY AND SINUSES 86252 NASAL 12-06-2012 [facility] MUCOSITIS DON ULCERATIVE 7078 CHRONIC 12-06-2012 [facility] ULCER OF [facility]OS[facility] OTHER INC SPECIFIED SITE 3804 IMPACTED 08-03-2012 [facility] CERUMEN DON 97990 CHRONIC 08-03-2012 [facility] FATIGUE DON SYNDROME 71120 OTHER 06-22-2012 [facility] CHRONIC DON PAIN 7873 FLATULENCE 06-17-2012 [facility] ERUCTATION DON AND GAS PAIN 97287 OTHER 06-03-2012 [place] SPECIFIED DON TYPES OF CYSTITIS 4293 CARDIOMEGAL 05-14-2012 [facility] MEDICAL IMAGING ASS 65489 NONSPECIFIC 05-14-2012 [facility] EMERGENCY ELECTROCARD SERVICES IOGRAM V1090 PERSONAL 05-14-2012 [place] HISTORY MEDICAL UNSPECIFIED IMAGING ASS MALIGNANT NEOPLASM V711 OBSERVATION 05-14-2012 [place] FOR MEDICAL SUSPECTED IMAGING ASS MALIGNANT NEOPLASM OTHER 04-28-2012 [facility]NT [facility] 3898 OTHER 02-17-2012 [facility] SPECIFIED DON FORMS OF HEARING LOSS 25446 GASTROJEJ 02-17-2012 [facility] ULCR UNS DON ACUT/CHRN W/O HEMOR PERF/OBST 18255 PAIN IN 01-06-2012 [facility] JOINT, SITE MEM HOSP INC UNSPECIFIED 6160 CERVICITIS 12-16-2011 [place] AND MEDICAL ENDOCERVICI IMAGING ASS TIS 6203 ACQUIRED 12-16-2011 [place] ATROPHY OF MEDICAL OVARY AND IMAGING ASS FALLOPIAN TUBE 6219 UNSPECIFIED 12-16-2011 [place] DISORDER MEDICAL OF UTERUS IMAGING ASS 77797 OSTEOARTHRO 12-11-2011 [facility] S INVLV MX DON [place]IT[place] 54792 HEMATURIA 11-30-2011 [facility] UNSPECIFIED DON 55370 OTHER 11-30-2011 [place] SPECIFIED DON DISORDERS OF URINARY TRACT 46117 UNSPECIFIED 10-19-2011 [facility] OTALGIA DON 77138 MUSCLE 10-19-2011 [facility] WEAKNESS DON (GENERALIZE D) 56503 DIVERTICULO 07-22-2011 [facility] SIS OF DON COLON 1104 DERMATOPHYT 07-10-2011 [facility] OSIS OF FOOT 9168 OTH&UNS SUP 07-07-2011 [facility] INJR HIP DON THI LEG&ANK W/O MENTION INF 9190 ABRASION/FR 06-26-2011 [place] [facility] OTH MX&UNS SERVICES SITE W/O INF 5950 ACUTE 05-28-2011 [facility] CYSTITIS [facility] 6929 CONTACT 05-22-2011 [facility] DERMATITIS& OTHER ECZEMA DUE UNSPEC CAUSE 7011 ACQUIRED 05-22-2011 [facility] KERATODERMA 92042 OTHER 04-20-2011 [place] SPECIFIED DON CIRCULATORY SYSTEM DISORDERS 20650 CONTUSION 04-20-2011 [place] MULTIPLE DON SITES SHOULDER&UP PER ARM 5952 OTHER 02-05-2011 [facility] CYSTITIS [facility] P 1129 CANDIDIASIS 01-07-2011 [place] OF [facility] UNSPECIFIED SITE 4280 CONGESTIVE 01-07-2011 [place] HEART DON FAILURE UNSPECIFIED 2768 HYPOPOTASSE 12-31-2010 [facility] HOSP INC 8910 OPEN WOUND 10-22-2010 [place] KNEE DON LEG&ANK WITHOUT MENTION COMP V5832 ENCOUNTER 10-22-2010 [place] FOR REMOVAL DON OF SUTURES 37895 PHACOLYTIC 08-06-2010 [place] [facility] 4618 OTHER ACUTE 07-29-2010 [place] SINUSITIS DON 1880 MALIGNANT 06-26-2010 [place] NEOPLASM OF H UROLOGY [facility]ONE OF [facility] URINARY BLADDER 49119 SPASM OF 06-06-2010 [place] MUSCLE DON 61520 DEGEN 05-04-2010 [place] LUMBAR/LUMB EMERGENCY OSACRAL SERVICES [facility] RAL DISC OTHER MALIG 04-22-2010 [place] LYMPHOMAS [place] LYMPH NODES [facility] MULTIPLE SITES V6709 FOLLOW-UP 01-17-2010 [place] [facility] EXAMINATION AND HAND FOLLOWING SURGEONS OTHER [facility] SURGERY 6256 FEMALE 01-13-2010 [place], STRESS DON R INCONTINENC E V7651 SPECIAL 01-13-2010 [place], SCREENING DON R FOR MALIGNANT NEOPLASMS COLON 1629 MALIGNANT 09-09-2009 [place] NEOPLASM [facility] UNSPEC [facility] SITE 4148 OTHER SPEC 08-30-2009 [place], FORMS DON R CHRONIC ISCHEMIC HEART DISEASE 8208 CLOSED 08-30-2009 [place], FRACTURE DON R UNSPECIFIED PART NECK FEMUR 12511 POSTPROCEDU 08-21-2009 [facility] PROF SERV 30253 OTHER 08-20-2009 PATHOLOGY & CLOSED CYTOLOGY TRANSCERVIC LAB AL FRACTURE OF FEMUR 32540 INF DUE OTH 08-19-2009 [facility] GM-NEGATIVE INC ORGANISMS CCE & UNS SITE 77767 ABDOMINAL 08-19-2009 [facility] OTHER EMERGENCY SPECIFIED SERVICES SITE ASSOCIATES 29627 CLOSED 08-19-2009 [facility] DISLOCATION AMBULANCE OF HIP SERVICE UNSPECIFIED SITE 9596 INJURY 08-19-2009 [place] OTHER AND AMBULANCE UNSPECIFIED SERVICE HIP AND THIGH E8859 FALL FROM 08-19-2009 [place] OTHER EMERGENCY SLIPPING SERVICES TRIPPING OR ASSOCIATES STUMBLING 12835 UNSPECIFIED 08-14-2009 [place] [facility] OPACITY FOUND[facility] V0382 NEED PROPH 07-31-2009 [place], VACCINATION DON R AGAINST STREP PNEUMONE 57353 SPRAIN AND 06-10-2009 [place], STRAIN OF DON R UNSPECIFIED SITE OF WRIST 54779 UNSPECIFIED 06-10-2009 [place], SITE OF DON R ANKLE SPRAIN AND STRAIN E8490 PLACE OF 06-07-2009 [place] OCCURRENCE, [facility]ICAL [facility] E8844 ACCIDENTAL 06-07-2009 [facility] FALL FROM [facility]ERGENCY BED SERVICES [facility] 91586 SECONDARY 09-19-2008 [place] [facility] EDEMA FOUND[facility] 97151 SPONDYLOSIS 08-22-2008 NEW UNSPEC [place] SITE W/O CLINIC PSC MENTION MYELOPATHY V1072 PERSONAL 08-22-2008 NEW HISTORY OF [place] DEPOSIT [facility] PSC DISEASE 93896 ATRIAL 07-01-2008 [facility] N 24940 ABDOMINAL/P 07-01-2008 [facility] SWELLING MASS/LUMP UNSPEC SITE 34034 UNSPECIFIED 03-02-2008 [facility] [place] OSTEOPOROSI S Immunization Name Date Rout CVX Reac Dose Comm Prov Is Faci e tion ent ider Refu lity Give sed n IIV3 - 141 STEP No STEP 1-20 HENS HENS VACC 10 DON INE SPLI T VIRU DON S 0.5 ML DOSA GE IM USE PPSV -2 33 STEP No STEP 23 3-20 HENS HENS VACC 09 , , INE DON DON 2 R R YRS OR OLDE R FOR SUBQ /IM USE IIV3 -2 141 STEP No STEP 3-20 HENS HENS VACC 09 , , INE DON DON SPLI R R T VIRU S 0.5 ML DOSA GE IM USE IIV3 10- 141 STEP No STEP 7-20 HENS HENS VACC 08 , , INE DON DON SPLI R R T VIRU S 0.5 ML DOSA [facility] IM USE Procedures Procedure DOS Code Location Performer Comment RADEX [address] HUMERUS 7 [facility] MINIMUM 2 [facility] PARTH[facility] VIEWS ECG [address] ROUTINE 7 [facility] ECG PARTHA PARTHA W/LEAST 12 LDS TRCG ONLY W/O I&[place] [address] HEAD/BRAI 7 [facility] N W/O PARTHA PARTHA CONTRAST MATERIAL RADIOLOGI [address] C 7 [facility] EXAMINATI PARTHA PARTHA ON CHEST SINGLE VIEW FRONTAL BASIC [address] METABOLIC 7 [facility] PANEL PARTHA PARTHA CALCIUM TOTAL COLLECTIO [address] N VENOUS 7 [facility] BLOOD PARTHA PARTHA VENIPUNCT URE CULTURE [address] BACTERIAL 7 [facility] PARTHA PARTHA QUANTTATI VE COLONY COUNT URINE URNLS DIP [address] 7 [facility] STICK/TAB PARTHA PARTHA LET REAGENT AUTO MICROSCOP Y BLOOD [address] COUNT 7 [facility] COMPLETE PARTHA PARTHA AUTO&AUTO DIFRNTL WBC BASIC 03087 [facility] PANEL INC INC CALCIUM TOTAL BASIC 31615 [facility] MET[facility] 7 [facility] PANEL INC INC CALCIUM TOTAL BLOOD 37004 [facility] COUNT [facility] COMPLETE INC INC AUTO&AUTO DIFRNTL WBC NEBULIZER E0570 MICHELLE MARTINEZ WITH 7 HOME HOME COMPRESSO MEDICAL MEDICAL R EQUIPME EQUIPME RADIOLOGI 58809 [facility] EXAM 7 MEDICAL CHEST 2 IMAGING VIEWS ASS FRONTAL&L ATERAL ECG 41017 [facility] ROUTINE 7 [facility] ECG INC INC W/LEAST 12 LDS TRCG ONLY W/O I&R ECG 88904 [facility] ROUTINE 7 PHYSICIAN ECG S GROUP W/LEAST 12 LDS I&R ONLY INTERROGA 73743 [facility] RIKI TION EVAL 7 PHYSICIAN REMOTE S GROUP </90 D 1/2/SUPERVISOR VARNISH LEAD PM ECG 46448 [facility] RIKI ROUTINE 7 PHYSICIAN ECG S GROUP W/LEAST 12 LDS I&R ONLY ECG 27226 [facility] SAL[facility] ROUTINE 7 [facility] ECG INC INC W/LEAST 12 LDS TRCG ONLY W/O I&R DUP-SCAN 82052 [place] [facility] XTR VEINS 7 MEDICAL IMAGING [place] ASS L/LIMITED [facility] G0378 [facility] OBSERVATI 7 [facility] ON INC INC SERVICE PER HOUR BLOOD 01934 [facility] COUNT 7 [facility] COMPLETE INC INC AUTO&AUTO DIFRNTL WBC COLLECTIO 76715 [facility] N VENOUS 7 [facility] BLOOD INC INC VENIPUNCT URE BASIC 24650 [facility] METABOLIC 7 [facility] PANEL INC INC CALCIUM TOTAL NONINVASI 79950 [facility] VE 7 [facility] EAR/PULSE INC INC OXIMETRY SINGLE DETER PRESSURIZ 33318 [facility] ED/NONPRE 7 [facility] SSURIZED [place] [address] [facility] INFUSION 7 [facility] THERAPY/P INC INC ROPHYLAXI S /DX 1ST TO 1 HR THERAPEUT 59968 [facility] IC 7 [facility] INJECTION INC INC [place]USH [place] 87495 [facility] NEW/RPLC 7 [facility] PRM INC INC PACEMAKER W/TRANSV ELTRD VENTR BASIC 71563 [facility] METABOLIC 7 [facility] PANEL INC INC CALCIUM TOTAL BLOOD 30544 [facility] COUNT 7 [facility] COMPLETE INC INC AUTO&AUTO DIFRNTL WBC PACEMAKER C1785 [facility] DUAL 7 [facility] CHAMBER INC INC RATE-RESP ONSIVE LEAD C1898 [facility] PACEMKR 7 [facility] OTH THAN INC INC TRNS VDD [facility] G0378 [facility] OBSERVATI 7 [facility] ON INC INC SERVICE PER HOUR ECG 72037 [facility] RIKI ROUTINE 7 PHYSICIAN ECG S GROUP W/LEAST 12 LDS I&R ONLY RADIOLOGI 03279 [facility] C 7 [facility] EXAMINATI INC INC ON CHEST SINGLE VIEW FRONTAL ECG 29581 [facility] ROUTINE 7 [facility] ECG INC INC W/LEAST 12 LDS TRCG ONLY W/O I&R ANES 46625 [facility] PERMANENT 7 ANESTH OF THE TRANSVENO BLUE US PACEMAKER INSERTION CT THORAX 51325 [place] ZACH 7 MEDICAL W/CONTRAS IMAGING T ASS MATERIAL CREATININ 68180 [facility] E BLOOD 7 [place] [address] [facility] UREA 7 [facility] NITROGEN INC INC QUANTITAT RIGO COLLECTIO 16430 [facility] N VENOUS 7 [facility] BLOOD INC INC VENIPUNCT URE LOCM Q9967 [facility] [phone] 7 [facility] MG/ML INC INC IODINE CONCENTRA TION PER ML ECG 89406 [facility] RIKI ROUTINE 7 PHYSICIAN ECG S GROUP W/LEAST 12 LDS I&R ONLY ECG 88295 [facility] ROUTINE 7 [facility] ECG INC INC W/LEAST 12 LDS TRCG ONLY W/O I&R CV STRS 73203 [facility] TST 7 [facility] XERS&/OR INC INC RX CONT ECG TRCG ONLY INJECTION J2785 [facility] 7 [facility] REGADENOS INC INC ON 0.1 MG TECHNETIU A9502 [facility] Hernnadez TC-99M 7 [facility] TETROFOSM INC INC IN DX PER STUDY DOSE MYOCARDIA 58262 [facility] L SPECT 7 [facility] MULTIPLE INC INC STUDIES ECG 74742 [facility] ROUTINE 7 [facility] ECG INC INC W/LEAST 12 LDS TRCG ONLY W/O I&R ECG 52108 [facility]CIDO ROUTINE 7 [facility] ECG INC INC W/LEAST 12 LDS TRCG ONLY W/O I&R ECG 46442 [facility] RIKI ROUTINE 7 PHYSICIAN ECG S GROUP W/LEAST 12 LDS I&R ONLY XTRNL ECG 93129 [facility] & 48 HR 7 [facility] RECORDING INC INC ECHO 29071 [facility]I TTHRC R-T 7 [facility] 2D INC INC W/WOM-MOD E COMPL SPEC&COLR D ECG 74848 [facility] ROUTINE 7 PHYSICIAN ECG S GROUP W/LEAST 12 LDS I&R ONLY ECG 28163 [facility] SALCIDO ROUTINE 7 [facility] ECG INC INC W/LEAST 12 LDS TRCG ONLY W/O I&R ECG 43755 [facility] SALCIDO ROUTINE 7 [facility] ECG INC INC W/LEAST 12 LDS TRCG ONLY W/O I&R RADIOLOGI 63774 [facility]CID[facility] C EXAM 7 [facility] CHEST 2 INC INC VIEWS FRONTAL&L ATERAL ECG 36105 [facility] GUEVARA JR ROUTINE 7 [facility] W/LEAST P 12 LDS I&R ONLY RADEX 86266 [facility] SPINE 7 MEDICAL CERVICAL IMAGING 4 OR 5 ASS VIEWS BLOOD 22084 [facility] COUNT 7 [facility] COMPLETE INC INC AUTO&AUTO DIFRNTL WBC BASIC 65190 [facility] METABOLIC 7 [facility] PANEL INC INC CALCIUM TOTAL CT PELVIS 81110 [facility] SALCID[facility] W/O 7 [facility] CONTRAST INC INC MATERIAL CT LOWER 79943 [place] [facility] EXTREMITY 7 MEDICAL W/O IMAGING CONTRAST ASS MATERIAL INJECTION J1100 ISMAEL GUEVARA JR 7 DEXAMETHO SONE SODIUM PHOSPHATE 1 MG COMPRE 38725 [place] E[facility] SIEMER AUDIOMETR 6 NOSE AND CLARY Y THROAT THRESHOLD EVAL SP RECOGNIJ TYMPANOME 18354 [place] [facility] TRY 6 NOSE AND CLARY THROAT BASIC 45401 COMBINED COMBINED METABOLIC 6 PHYSICIAN PHYSICIAN PANEL S LA S LA CALCIUM TOTAL BLOOD 41644 COMBINED COMBINED COUNT 6 PHYSICIAN PHYSICIAN COMPLETE S LA S LA AUTO&AUTO DIFRNTL WBC SMR PRIM 81314 [facility] SRC 6 [facility] GRAM/GIEM INC INC SA STAIN BCT FUNGI/YAMILKA L ARTHROCEN 18083 [facility] TESIS 6 MEDICAL LATRELL ASPIR&/IN IMAGING J MAJOR ASS JT/BURSA W/US BIOPSY 56417 [facility] SOFT 6 [facility] TISSUE INC INC PELVIS&HI P AREA SUPERFICI AL CUL BACT 32944 [facility] XCPT 6 [facility] URINE INC INC BLOOD/STO OL AEROBIC ISOL CELL 63186 [facility] COUNT 6 [facility] MISC BODY INC INC FLUIDS W/DIFFERE NTIAL COUNT CYTP EVAL 90087 [facility] FINE 6 [facility] NEEDLE INC INC ASPIRATE INTERP & RE[place] [address] [facility] SURG 6 [facility] PATHOLOGY INC INC GROSS&[place] [address] [facility] SALC[facility] EXTREMITY 6 [facility] NON-VASC [place] [address] [facility] SALCIDO GUIDANCE 6 [facility] NEEDLE INC INC PLACEMENT IMG S&I RADEX HIP 31588 [place] [facility] ALL 6 MEDICAL [place]A IMAGING L WITH ASS PELVIS 1 VIEW AMBULANCE A0428 [facility] SERVICE 6 AMBULANCE AMBULANCE BLS [facility]SP[facility] A0425 [facility] MILEAGE 6 AMBULANCE AMBULANCE PER SERVICE SERVICE STATUTE MILE RADIOLOGI 29724 [place] ZACH C 6 MEDICAL LATRELL EXAMINATI IMAGING ON CHEST ASS SINGLE VIEW FRONTAL RADIOLOGI 69688 [place] ABHILASH C 6 MEDICAL ANGELIKA EXAMINATI IMAGING ON CHEST ASS SINGLE VIEW FRONTAL RADEX HIP 63186 [facility] 6 MEDICAL ANGELIKA UNILATERA IMAGING L WITH ASS PELVIS 2-3 VIEWS OPTX FEM 58617 [facility] PETTEY FX PROX 6 PHYSICIAN JAM END NCK S GROUP INT FIXJ/PROS TC RPLCMT ECG 00008 [facility] ROGER ROUTINE 6 [facility] W/LEAST P 12 LDS I&R ONLY RADIOLOGI 73864 [facility] C 6 MEDICAL ANGELIKA EXAMINATI IMAGING ON FEMUR ASS MINIMUM 2 VIEWS GROUND A0425 [facility] MILEAGE 6 AMBULANCE AMBULANCE PER SERVICE SERVICE STATUTE MILE REPLACEME [id number] [facility] NT LT HIP 6 [facility] JOINT INC INC CERAMIC POLY SYNTH OPEN AMB A0427 [facility] SERVICE 6 AMBULANCE AMBULANCE ALS SERVICE SERVICE EMERGENCY TRANSPORT LEVEL 1 ANESTHESI 17785 [facility] OPEN 6 ANESTH RAMO PROCEDURE OF THE S UPPER BLUE 2/3 FEMUR NOS RADIOLOGI 48241 [facility] ALL C 6 MEDICAL EXAMINATI IMAGING ON CHEST ASS SINGLE VIEW FRONTAL ANES 28847 [facility] LOWER 6 ANESTH SHE INTESTINE OF THE BLUE ENDOSCOPY DISTAL DUODENUM INJECTION J1100 ISMAEL GUEVARA JR 6 [place] DWI DEXAMETHO SONE SODIUM [place] [address] [place] [address] [facility] ALL ABDOMEN & 6 MEDICAL PELVIS IMAGING W/O ASS CONTRAST MATERIAL URNLS DIP 74930 ISMAEL GUEVARA JR 6 [place] DWI STICK/TAB LET RGNT NON-AUTO W/O MICRSCP INJECTION J1030 ISMAEL ISMAEL JR 6 [place] DWI METHYLPRE DNISOLONE ACETATE 40 MG RADIOLOGI 78232 [facility] C EXAM 6 MEDICAL ANGELIKA CHEST 2 IMAGING VIEWS ASS FRONTAL&L ATERAL BASIC 28574 [facility] METABOLIC 6 [facility] PANEL INC INC CALCIUM TOTAL COLLECTIO 38053 [facility] N VENOUS 6 [facility] BLOOD INC INC VENIPUNCT URE BLOOD 73046 [facility] SAL[facility] COUNT 6 [facility] COMPLETE INC INC AUTO&AUTO DIFRNTL WBC BLOOD 73405 COMBINED COMBINED COUNT 5 PHYSICIAN PHYSICIAN COMPLETE S LA S LA AUTO&AUTO DIFRNTL WBC BASIC 33335 COMBINED COMBINED METABOLIC 5 PHYSICIAN PHYSICIAN PANEL S LA S LA CALCIUM TOTAL CYANOCOBA 94664 COMBINED COMBINED JEWEL 5 PHYSICIAN PHYSICIAN VITAMIN S LA S LA B-12 INFLUENZA Q2038 ISMAEL GUEVARA JR VACC 5 [place] DWI SPLIT VIRUS 3 YRS & > IM FLUZONE ADMINISTR G0008 ISMAEL GUEVARA JR ATION OF 5 [place] DWI INFLUENZA VIRUS VACCINE URNLS DIP 68445 ISMAEL GUEVARA JR 5 [place] DWI STICK/TAB LET RGNT NON-AUTO W/O MICRSCP RADEX HIP 28790 [facility] ALL 5 MEDICAL UNILATERA IMAGING L 1 VIEW ASS RADEX HIP 55175 [facility] SALCIDO 5 [facility] UNILATERA INC INC L COMPLETE MINIMUM 2 VIEWS BASIC 67013 [facility] SALCIDO METABOLIC 5 [facility] PANEL INC INC CALCIUM TOTAL COLLECTIO 15127 [facility] SALCIDO N VENOUS 5 [facility] BLOOD INC INC VENIPUNCT URE BLOOD 71815 [facility] SAL[facility]IDO COUNT 5 [facility] COMPLETE INC INC AUTO&AUTO DIFRNTL WBC GROUND A0425 NARINDER NARINDER MILEAGE 5 CO CO PER AMBULANCE AMBULANCE STATUTE TAXIN TAXIN MILE AMB A0427 NARINDER NARINDER SERVICE 5 CO CO ALS AMBULANCE AMBULANCE EMERGENCY TAXIN TAXIN TRANSPORT LEVEL 1 COLLECTIO 17697 ISMAEL GUEVARA JR N VENOUS 5 [place] DWI BLOOD VENIPUNCT URE BASIC 76153 COMBINED COMBINED METABOLIC 5 PHYSICIAN PHYSICIAN PANEL S LA S LA CALCIUM TOTAL BLOOD 20579 COMBINED COMBINED COUNT 5 PHYSICIAN PHYSICIAN COMPLETE S LA S LA AUTO&AUTO DIFRNTL WBC OBSERVATI 52974 ISMAEL GUEVARA JR ON CARE 5 [place] DWI DISCHARGE MANAGEMEN T DUP-SCAN 54958 [place] [facility] ALL XTR VEINS 5 MEDICAL IMAGING [place] ASS L/LIMITED STUDY SBSQ 06031 ISMAEL GUEVARA JR OBSERVATI 5 [place] DWI ON CARE/DAY 25 MINUTES INITIAL 14548 ISMAEL GUEVARA JR OBSERVATI 5 [place] DWI ON CARE/DAY 50 MINUTES RADIOLOGI 46903 [facility] ALL C EXAM 5 MEDICAL CHEST 2 IMAGING VIEWS ASS FRONTAL&[place] [address] [facility] ALL HEAD/BRAI 5 MEDICAL N W/O IMAGING CONTRAST ASS MATERIAL URNLS DIP 94070 COMBINED COMBINED 5 PHYSICIAN PHYSICIAN STICK/TAB S LA S LA LET REAGENT AUTO MICROSCOP Y INJECTION J1335 [facility]O 5 [facility] ERTAPENEM INC INC SODIUM 500 MG THERAPEUT 69520 [facility] SALCIDO IC 5 [facility] PROPHYLAC INC INC TIC/DX INJECTION SUBQ/IM INJECTION J1100 ISMAEL ISMAEL JR 5 [place] DWI DEXAMETHO SONE SODIUM PHOSPHATE 1 MG URNLS DIP 79430 ISMAEL GUEVARA JR 5 [place] DWI STICK/TAB LET RGNT NON-AUTO W/O MICRSCP SUSCEPTIB 11008 [facility] LTY STDY 5 [facility] ANTIMICRB INC INC IAL MICRO/AGA R DILUTJ CULTURE 96273 [facility] BACTERIAL 5 [facility] INC INC QUANTTATI VE COLONY COUNT URINE CULTURE 19287 [facility] BCT 5 [facility] ISOL&PRSM INC INC PTV ID ISOLATE EA URINE BLOOD 36326 [facility] SAL[facility]O COUNT 5 [facility] HEMATOCRI INC INC T BASIC 64063 [facility] METABOLIC 5 [facility] PANEL INC INC CALCIUM TOTAL IADNA-DNA 36644 O[facility] SAL[facility] /RNA GI 5 [facility] PTHGN INC INC [place]ULTIP[place] TQ 11-[address] [place] [address] [facility] ABDOMEN & 5 MEDICAL LATRELL PELVIS IMAGING W/O ASS CONTRAST MATERIAL CREATININ 74879 [facility] E BLOOD 5 [place] [address] [facility] SALCIDO UREA 5 [facility] NITROGEN INC INC QUANTITAT RIGO COLLECTIO 03852 O[facility] SALCIDO N VENOUS 5 [facility] BLOOD INC INC VENIPUNCT URE CULTURE 03804 [facility] SALCIDO BACTERIAL 5 [facility] INC INC [place] [address] [facility] MANUELA SURG 5 EMMA & ORTEGA PATHOLOGY DUBILIER GROSS&SAJAN ROSCOPIC EXAM SPECIAL 50333 [facility] STAIN 5 EMMA & ORTEGA GROUP 1 DUBILIER MICROORGA NISMS I&R EGD 49156 VOODOO VOODOO TRANSORAL 5 PHYS SURG PHYS SURG BIOPSY CTR CTR SINGLE/MU LTIPLE ANES 73533 [facility] UPPER GI 5 [facility] ENDOSCOPY ANESTHESI PROXIMAL A TO DUODENUM OPHTH 37882 [place] [facility] 5 EYE [facility] XM&EVAL INSTITUTE COMPRHNSV ESTAB PT 1/> FUNDUS 44240 [place] [facility] PHOTOGRAP 5 EYE [facility] HY INSTITUTE W/INTERPR ETATION & REPORT DETERMINA 56127 [place] [facility] TION 5 EYE [facility] REFRACTIV INSTITUTE E STATE URNLS DIP 59892 ISMAEL GUEVARA JR 5 [place] DWI STICK/TAB LET RGNT NON-AUTO W/O MICRSCP SUSCEPTIB 54003 [facility]CIDO LTY STDY 5 [facility] ANTIMICRB INC INC IAL MICRO/AGA R DILUTJ CULTURE 02155 [facility] BCT 5 [facility] ISOL&PRSM INC INC PTV ID ISOLATE EA URINE CULTURE 35501 [facility] BACTERIAL 5 [facility] INC INC QUANTTATI VE COLONY COUNT URINE INJECTION J1040 ISMAEL GUEVARA JR 5 [place] DWI METHYLPRE DNISOLONE ACETATE 80 MG THERAPEUT 92502 ISMAEL GUEVARA JR IC 5 [place] DWI PROPHYLAC TIC/DX INJECTION SUBQ/IM THER 60895 [facility] SALCIDO PROPH/DX 5 [facility] NJX IV INC INC PUSH SINGLE/1S T SBST/DRUG INJECTION J2405 [facility] SAL[facility]IDO 5 [facility] ONDANSETR INC INC ON HCL PER 1 MG COMPREHEN 92067 [facility] SALCIDO SIVE 5 [facility] METABOLIC INC INC PANEL RADIOLOGI 09888 [place] [facility] C 5 MEDICAL LATRELL EXAMINATI IMAGING ON CHEST ASS SINGLE VIEW FRONTAL URNLS DIP 79358 [facility] SALCIDO 5 [facility] STICK/TAB INC INC LET REAGENT AUTO MICROSCOP Y CULTURE 57045 [facility] CALLEON BACTERIAL 5 [facility] BLOOD INC INC AEROBIC W/ID ISOLATES IAADI 10275 OMARI OMARI INFLUENZA 5 [facility] B VIRUS INC INC IAADI 38756 [facility] INFFLUENZ 5 [facility] A A VIRUS INC INC BLOOD 56957 [facility] SALCIDO COUNT 5 [facility] COMPLETE INC INC AUTO&AUTO DIFRNTL WBC CULTURE 03854 O[facility]I BACTERIAL 5 [facility] INC INC QUANTTATI VE COLONY COUNT URINE URNLS DIP 64666 ISMAEL GUEVARA JR 5 [place] DWI STICK/TAB LET RGNT NON-AUTO W/O MICRSCP THERAPEUT 11974 ISMAEL GUEVARA JR IC 4 [place] DWI PROPHYLAC TIC/DX INJECTION SUBQ/IM INJECTION J1100 ISMAEL GUEVARA 4 [place] YOJANA DEXAMETHO SONE SODIUM PHOSPHATE 1 MG THERAPEUT 35110 ISMAEL GUEVARA JR IC 4 [place] DWI PROPHYLAC TIC/DX INJECTION SUBQ/IM INJECTION J1030 ISMAEL GUEVARA JR 4 [place] DWI METHYLPRE DNISOLONE ACETATE 40 MG ECHO 06204 OMARI SALCIDO TTHRC R-T 4 [facility] 2D INC INC W/WOM-MOD E COMPL SPEC&COLR D URNLS DIP 27562 ISMAEL GUEVARA JR 4 [place] DWI STICK/TAB LET RGNT NON-AUTO W/O MICRSCP THERAPEUT 08419 ISMAEL GUEVARA JR IC 4 [place] DWI PROPHYLAC TIC/DX INJECTION SUBQ/IM INJECTION J1100 ISMAEL GUEVARA JR 4 [place] DWI DEXAMETHO SONE SODIUM PHOSPHATE 1 MG INJECTION J2785 [facility]O 4 [facility] REGADENOS INC INC ON 0.1 MG CV STRS 14391 OMARI SALCIDO TST 4 [facility] XERS&/OR INC INC RX CONT ECG TRCG ONLY CV STRS 98405 OMARI GUEVARA JR TST 4 [facility] RX CONT P ECG I&R ONLY TECHNETIU A9500 OMARI Hernandez TC-99M 4 [facility] SESTAMIBI INC INC DX PER STUDY DOSE MYOCARDIA 41736 OMARI SALCIDO L SPECT 4 [facility] [place] [address] OMAR[facility] SALCIDO TROPONIN 4 [facility] QUANTITAT INC INC RIGO BLOOD 97771 OMARI SALCIDO COUNT 4 [facility] COMPLETE INC INC AUTO&AUTO DIFRNTL WBC CREATINE 09125 OMARI SALCIDO KINASE MB 4 [facility] [place] [address] OMARI SALCIDO THYROID 4 [facility] STIMULATI INC INC NG HORMONE TSH COMPREHEN 78002 OMARI SALCIDO SIVE 4 [facility] METABOLIC INC INC PANEL ECG 64084 OMARI SALCIDO ROUTINE 4 [facility] ECG INC INC W/LEAST 12 LDS TRCG ONLY W/O I&R RADIOLOGI 18186 [place] [facility] 4 MEDICAL LATRELL EXAMINATI IMAGING ON CHEST ASS SINGLE VIEW FRONTAL CREATINE 59461 OMARI SALCIDO KINASE 4 [facility] TOTAL INC INC ECG 67343 OMARI GUEVARA JR ROUTINE 4 [facility] W/LEAST P 12 LDS I&R ONLY ARTHROCEN 02028 ISMAEL HAASIS 4 [place] YOJANA ASPIR&/IN J INTERM JT/BURS W/O US INFLUENZA Q2038 ISMAEL GUEVARA JR VACC 4 [place] DWI SPLIT VIRUS 3 YRS & > IM FLUZONE INJECTION J1040 ISMAEL GUEVARA JR 4 [place] DWI METHYLPRE DNISOLONE ACETATE [address] SHOULDER 4 JESSE MOLINA COMPLETE PARTHA PARTHA MINIMUM [address] IC 4 JESSE MOLINA PROPHYLAC PARTHA PARTHA TIC/DX INJECTION SUBQ/IM INJECTION J11[address] [facility] [facility] 4 JESSE MOLINA HYDROMORP PARTHA PARTHA ASAEL UP TO [address] 4 JESSE MOLINA ONDANSETR PARTHA PARTHA ON HCL PER 1 MG COLLECTIO 81058 ISMAEL GUEVARA JR N VENOUS 4 [place] DWI BLOOD VENIPUNCT URE BASIC 45996 COMBINED COMBINED METABOLIC 4 PHYSICIAN PHYSICIAN PANEL S LA S LA CALCIUM TOTAL BASIC 94804 OMARI SALCIDO METABOLIC 4 [facility] PANEL INC INC CALCIUM TOTAL COLLECTIO 13413 ISMAEL GUEVARA JR N VENOUS 4 [place] DWI BLOOD VENIPUNCT URE BLOOD 51216 OMARI SALCIDO COUNT 4 [facility] COMPLETE INC INC AUTO&AUTO DIFRNTL WBC URNLS DIP 61975 ISMAEL GUEVARA JR 4 [place] DWI STICK/TAB LET RGNT NON-AUTO W/O MICRSCP CREATINE 21797 OMARI SALCIDO KINASE 4 [facility] TOTAL INC INC URNLS DIP 72337 ISMAEL ISMAEL JR 4 [place] DWI STICK/TAB LET RGNT NON-AUTO W/O MICRSCP RADEX 16594 OMARI SALCIDO SPINE 4 [facility] LUMBOSACR INC INC AL MINIMUM 4 VIEWS THERAPEUT 65344 ISMAEL GUEVARA JR IC 4 [place] DWI PROPHYLAC TIC/DX INJECTION SUBQ/IM URNLS DIP 68006 ISMAEL GUEVARA JR 4 [place] DWI STICK/TAB LET RGNT NON-AUTO W/O MICRSCP INJECTION J1040 ISMAEL GUEVARA JR 4 [place] DWI METHYLPRE DNISOLONE ACETATE 80 MG CULTURE 31928 OMARI SALCIDO BACTERIAL 4 [facility] INC INC QUANTTATI VE COLONY COUNT URINE COLLECTIO 32119 ISMAEL GUEVARA JR N VENOUS 4 [place] DWI BLOOD VENIPUNCT URE BASIC 96647 COMBINED COMBINED METABOLIC 4 PHYSICIAN PHYSICIAN PANEL S LA S LA CALCIUM TOTAL BLOOD 88184 COMBINED COMBINED COUNT 4 PHYSICIAN PHYSICIAN COMPLETE S LA S LA AUTO&AUTO DIFRNTL WBC OBSERVATI 23864 ISMAEL GUEVARA JR ON CARE 4 [place] DWI DISCHARGE MANAGEMEN T SBSQ 56051 ISMAEL GUEVARA JR OBSERVATI 4 YOJANA DWI ON CARE/DAY 25 MINUTES ECG 13420 OMARI GUEVARA JR ROUTINE 4 [facility] W/LEAST P 12 LDS I&R ONLY ECG 51313 [facility] 4 [facility] ECG EMERGENCY W/LEAST PHYS 12 LDS I&R ONLY ECHO 23884 MERRY MICHELLE TTHRC R-T 4 MEDICAL EMELI 2D SERV W/WOM-MOD FOUNDATIO E COMPL SPEC&COLR D AMB A0427 [facility] SERVICE 4 AMBULANCE AMBULANCE ALS SERVICE SERVICE EMERGENCY TRANSPORT LEVEL 1 INITIAL 56362 ISMAEL GUEVARA JR OBSERVATI 4 [place] DWI ON CARE/DAY 50 MINUTES GROUND A0425 [facility] MILEAGE 4 AMBULANCE AMBULANCE PER SERVICE SERVICE STATUTE MILE URNLS DIP 44026 ISMAEL GUEVARA JR 4 [place] DWI STICK/TAB LET RGNT NON-AUTO W/O MICRSCP ECG 34252 OMARI GUEVARA JR ROUTINE 4 [facility] W/LEAST P 12 LDS I&R ONLY CREATINE 32983 OMARI SALCIDO KINASE 4 [facility] TOTAL INC INC ECG 14082 OMARI SALCIDO ROUTINE 4 [facility] ECG INC INC W/LEAST 12 LDS TRCG ONLY W/O I&R RADEX 91861 [place] [facility] FOOT 4 [facility] COMPLETE IMAGING MINIMUM 3 ASS VIEWS RADIOLOGI 22258 [place] [facility] C EXAM 4 [facility] CHEST 2 IMAGING VIEWS ASS FRONTAL&L ATERAL TECHNETIU A9540 OMARI Hernandez TC-99M 4 [facility] MAA DX INC INC STDY DOSE UP TO 10 [facility] PULMONARY 39895 [place] [facility] 4 [facility] VENTILATI IMAGING ON & [place] [address] OMARI SALCIDO TROPONIN 4 [facility] QUANTITAT INC INC RIGO COLLECTIO 97791 OMARI SALCIDO N VENOUS 4 [facility] BLOOD INC INC VENIPUNCT URE BASIC 49188 OMARI OMARI METABOLIC 4 [facility] PANEL INC INC CALCIUM TOTAL FIBRIN 06159 OMARI SALCIDO DGRADJ 4 [facility] PRODUCTS INC INC D-DIMER QUAL/SEMI NAYE CREATINE 02282 OMARI SALCIDO KINASE MB 4 [facility] FRACTION INC INC ONLY TECHNETIU A9567 OMARI SALCIDO M TC-99M 4 [facility] PENTETATE INC INC DX AEROSOL TO [address] [place] [address] OMARI SALCIDO LIPASE 4 [facility] INC INC URNLS DIP 08319 OMARI CALLEON 4 [facility] STICK/TAB INC INC LET REAGENT AUTO MICROSCOP Y BLOOD 55531 OMARI SALCIDO COUNT 4 [facility] COMPLETE INC INC AUTO&AUTO DIFRNTL WBC RADIOLOGI 88981 [facility] EXAM 4 [facility] CHEST 2 IMAGING VIEWS ASS FRONTAL&L ATERAL COMPREHEN 86180 OMARI SALCIDO SIVE 4 [facility] METABOLIC INC INC PANEL IAADI 75430 OMARI SALCIDO INFLUENZA 4 [facility] B VIRUS INC INC IAADI 09659 OMARI SALCIDO INFFLUENZ 4 [facility] A A VIRUS INC INC URNLS DIP 83707 OMARI SALCIDO 4 [facility] STICK/TAB INC INC LET REAGENT AUTO MICROSCOP Y STANDARD K0001 MICHELLE MAXWELL 4 HOME HOME R MEDICAL MEDICAL EQUIPME EQUIPME STANDARD K0001 MICHELLE MAXWELL 4 HOME HOME R MEDICAL MEDICAL EQUIPME EQUIPME CULTURE 65080 OMARI SALCIDO BACTERIAL 4 [facility] INC INC QUANTTATI VE COLONY COUNT URINE STANDARD K0001 MICHELLE MAXWELL 3 HOME HOME R MEDICAL MEDICAL EQUIPME EQUIPME SEDIMENTA 81461 OMARI SALCIDO TION RATE 3 [facility] RBC INC INC NON-AUTOM ATED BLOOD 51346 OMARI SALCIDO COUNT 3 [facility] COMPLETE INC INC AUTO&AUTO DIFRNTL WBC STANDARD K0001 MICHELLE PIMENTELI 3 HOME HOME R MEDICAL MEDICAL EQUIPME EQUIPME STANDARD K0001 MICHELLE HERNANDEZCHAI 3 HOME HOME R MEDICAL MEDICAL EQUIPME EQUIPME STANDARD K0001 MICHELLE HERNANDEZCHAI 3 HOME HOME R MEDICAL MEDICAL EQUIPME EQUIPME THERAPEUT 04387 ISMAEL ISMAEL JR IC 3 [place] DWI PROPHYLAC TIC/DX INJECTION SUBQ/IM INJECTION J1100 ISMAEL GUEVARA JR 3 [place] DWI DEXAMETHO SONE SODIUM PHOSPHATE 1 MG URNLS DIP 01578 ISMAEL GUEVARA JR 3 [place] DWI STICK/TAB LET RGNT NON-AUTO W/O MICRSCP CULTURE 03709 OMARI SALCIDO BACTERIAL 3 [facility] INC INC QUANTTATI VE COLONY COUNT URINE STANDARD K0001 MICHELLE HERNANDEZCHAI 3 HOME HOME R MEDICAL MEDICAL EQUIPME EQUIPME OPHTH 14609 [place] [facility] 3 E[facility] XM&EVAL INSTITUTE COMPRE NEW PT 1/> VST DETERMINA 34694 [place] CASTT TION 3 E[facility] REFRACTIV INSTITUTE E STATE STANDARD K0001 MICHELLE PIMENTELI 3 HOME HOME R MEDICAL MEDICAL EQUIPME EQUIPME RADEX 17511 [facility] TRA SPINE 3 [place] THORACIC ORTHOPAED 2 VIEWS [facility] RADEX 39495 [facility] TRA SPINE 3 [place] CERVICAL ORTHOPAED 2 OR 3 [facility] VIEWS COMPREHEN 52862 [facility] SIVE 3 [facility] METABOLIC LABORATO LABORATO PANEL COLLECTIO 63161 [facility] [place] DE[place] N VENOUS 3 [facility] CLINIC BLOOD LABORAT[place] [address] [facility] BLOOD/URI 3 [facility]IN[facility] C ACID LABORATO LABORATO BLOOD 42354 [facility] [place] COUNT 3 [facility] COMPLETE LABORATO LABORATO AUTO&AUTO DIFRNTL WBC LACTATE 94309 [facility] DEHYDROGE 3 CLINIC CLINIC NASE LDH LABORATO LABORATO STANDARD K0001 MICHELLE MARLOWRELL WHEELCHAI 3 HOME HOME R MEDICAL MEDICAL EQUIPME EQUIPME INJECTION J1040 TYESHA ARAMBULA 3 DON DON METHYLPRE DNISOLONE ACETATE 80 MG STANDARD K0001 MICHELLE PIMENTELI 3 HOME HOME R MEDICAL MEDICAL EQUIPME EQUIPME OPHTH 64728 [facility] 3 MEDICAL JR ORTEGA XM&EVAL SERV COMPRHNSV FOUNDATIO ESTAB PT 1/> STANDARD K0001 MICHELLE MAXWELL 3 HOME HOME R MEDICAL MEDICAL EQUIPME [facility] 49984 [facility] 3 EMERGENCY RAE IGN DAY SERVICES MANAGEMEN T 30 MIN/< SBSQ 53842 [facility] 3 EMERGENCY RAE IGN CARE/DAY SERVICES 25 MINUTES ANESTHESI 08137 [place] DALE A PERQ 3 ANESTHESI [place] IMAGE A GROUP [place]UID[place] [address] [facility] [place] [facility] MAT SPINAL 3 RADIOLOGY CANAL THORACIC W/O CONTRAST MATRL MRI 38120 [facility] [place] MAT SPINAL 3 RADIOLOGY CANAL LUMBAR W/O CONTRAST MATERIAL RADIOLOGI 65895 [facility] [place] [facility] MAT C 3 RADIOLOGY EXAMINATI ON CHEST SINGLE VIEW FRONTAL INITIAL 86769 [facility] 3 N CARE/DAY CARDIOLOG 30 Y MINUTES INITIAL 40311 [facility] 3 EMERGENCY JANET CARE/DAY SERVICES [address] LUMBAR 09873 OMARI SALCIDO SPINE 3 [facility] W/O INC INC CONTRAST MATERIAL MRI 49418 [place] [facility] SPINAL 3 MEDICAL [facility]RELL CANAL IMAGING LUMBAR ASS W/O CONTRAST MATERIAL 3D 618[facility] 3 MEDICAL [facility]RE[facility] IMAGING W/INTERP& ASS POSTPROC DIFF WORK STATION 3D 56602 OMARI SALCIDO RENDERING 3 [facility] INC INC W/INTERP& POSTPROC DIFF WORK STATION RADIOLOGI 87932 OMARI SALCIDO C 3 [facility] EXAMINATI INC INC ON CHEST SINGLE VIEW FRONTAL RADIOLOGI 12212 OMARI SALCIDO C 3 [facility] EXAMINATI INC INC ON PELVIS 1/[address] [place] [address] OMARI SALCIDO CERVICAL 3 [facility] SPINE W/O INC INC CONTRAST MATERIAL RADEX 43534 OMARI JESSICA [facility]TE[facility] SPINE 3 [facility] LUMBOSACR [place] [address] [place] [address] OMARI OMARI HEAD/BRAI 3 [facility] N W/O INC INC CONTRAST MATERIAL 3D 91876 OMARI SALCIDO RENDERING 3 [facility] W/INTERP INC INC & POSTPROCE SS SUPERVISI ON THERAPEUT 29219 OMARI SALCIDO IC 3 [facility] PROPHYLAC INC INC TIC/DX INJECTION SUBQ/IM GROUND A0425 [facility] MILEAGE 3 AMBULANCE AMBULANCE PER SERVICE SERVICE STATUTE MILE AMBULANCE A0429 [facility] SERVICE 3 AMBULANCE AMBULANCE BLS SERVICE SERVICE EMERGENCY TRANSPORT INJECTION J1040 TYESHA ARAMBULA 3 DON DON METHYLPRE DNISOLONE ACETATE 80 MG STANDARD K0001 MICHELLE PIMNETELI 3 HOME HOME R MEDICAL MEDICAL EQUIPME EQUIPME COMPREHEN 46824 OMARI SALCIDO SIVE 3 [facility] METABOLIC INC INC PANEL URNLS DIP 25262 OMARI SALCIDO 3 [facility] STICK/TAB INC INC LET REAGENT AUTO MICROSCOP Y BLOOD 16425 OMARI SALCIDO COUNT 3 [facility] COMPLETE INC INC AUTO&AUTO DIFRNTL WBC COLLECTIO 15113 OMARI Lee VENOUS 3 [facility] BLOOD INC INC VENIPUNCT URE RADIOLOGI 78636 TYESHA Alcala 3 DON DON EXAMINATI ON KNEE 1/2 VIEWS STANDARD K0001 MICHELLE PIMENTELI 3 HOME HOME R MEDICAL MEDICAL EQUIPME EQUIPME URNLS DIP 36267 TYESHA ARAMBULA 3 DON DON STICK/TAB LET RGNT NON-AUTO W/O MICRSCP CULTURE 83375 OMARI SALCIDO BACTERIAL 3 [facility] INC INC QUANTTATI VE COLONY COUNT URINE CULTURE 36075 OMARI SALCIDO BCT 3 [facility] ISOL&PRSM INC INC PTV ID ISOLATE EA URINE SUSCEPTIB 60314 OMARI OMARI LTY STDY 3 [facility] ANTIMICRB INC INC IAL MICRO/AGA R DILUTJ OPHTH 26548 [facility] 3 MEDICAL JR ORTEGA XM&EVAL SERV COMPRHNSV FOUNDATIO ESTAB PT 1/> CUL BACT 92252 OMARI SALCIDO XCPT 3 [facility] URINE INC INC BLOOD/[place] [address] OMARI SALCIDO INFUSION 3 [facility] THERAPY/P INC INC ROPHYLAXI S /DX 1ST TO 1 [place] [address] OMARI SALCIDO INFUSION 3 [facility] THERAPY/P INC INC ROPHYLAXI S /DX 1ST TO 1 [place] [address] OMARI SALCIDO INFUSION 3 [facility] THERAPY/P INC INC ROPHYLAXI S /DX 1ST TO 1 HR DRUG 64020 OMARI SALCIDO SCREEN 3 [facility] QUANTITAT INC INC RIGO GENTAMICI N DRUG 48526 OMARI SALCIDO SCREEN 3 [facility] QUANTITAT INC INC RIGO GENTAMICI N COLLECTIO 60312 OMARI SALCIDO N VENOUS 3 [facility] [place] [address] OMARI SALCIDO INFUSION 3 [facility] THERAPY/P INC INC ROPHYLAXI S /DX 1ST TO 1 HR COLLECTIO 42848 OMARI SALCIDO N VENOUS 3 [facility] BLOOD INC INC VENIPUNCT URE DRUG 06851 OMARI SALCIDO SCREEN 3 [facility] QUANTITAT INC INC RIGO GENTAMICI N DRUG 24265 OMARI SALCIDO SCREEN 3 [facility] QUANTITAT INC INC RIGO GENTAMICI N COLLECTIO 92192 [facility]MARI SALCIDO N VENOUS 3 [facility] [place] [address] OMARI SALCIDO INFUSION 3 [facility] THERAPY/P INC INC ROPHYLAXI S /DX 1ST TO 1 HR CREATININ 42157 OMARI SALCIDO E BLOOD 3 [facility] INC INC BASIC 79281 OMARI SALCIDO METABOLIC 3 [facility] [place] [address] OMARI SALCIDO UREA 3 [facility] NITROGEN INC INC QUANTITAT RIGO INJECTION J0690 TYESHA ARAMBULA 3 DON DON CEFAZOLIN SODIUM 500 MG CUL BACT 81483 OMARI SALCIDO AEROBIC 3 [facility] ADDL INC INC METHS DEFINITIV E EA ISOL CUL BACT 85954 OMARI SALCIDO XCPT 3 [facility] URINE INC INC BLOOD/STO OL AEROBIC ISOL SUSCEPTIB 38509 OMARI SALCIDO LTY STDY 3 [facility] ANTIMICRB INC INC IAL MICRO/AGA R DILUTJ INFLUENZA Q2037 ARAMBULAKRISS ARAMBULA VACC 2 DON DON SPLIT VIRUS 3 YRS & > IM FLUVIRIN ADMINISTR G0008 TYESHA ARAMBULA ATION OF 2 DON DON INFLUENZA VIRUS VACCINE INJECTION J1040 TYESHA ARAMBULA 2 DON DON METHYLPRE DNISOLONE ACETATE 80 MG INJECTION J3420 TYESHA ARAMBULA VIT B-12 2 DON DON CYANOCOBA JEWEL TO 1000 MCG INJ J0702 ARAMBULAKRISS ARAMBULA BETAMETHA 2 DON DON SONE ACETATE & PHOSPHATE 3 MG REMOVAL 13887 TYESHA ARAMBULA IMPACTED 2 DON DON CERUMEN INSTRUMEN TATION UNILAT ECG 57700 TYESHA ARAMBULA ROUTINE 2 DON DON ECG W/LEAST 12 LDS W/I&R ECG 71705 TYESHA ARAMBULA ROUTINE 2 DON DON ECG W/LEAST 12 LDS W/I&R RADEX ABD 48441 TYESHA ARAMBULA COMPL 2 DON DON AQT ABD W/S/E/D VIEWS 1 VIEW URNLS DIP 75858 TYESHA ARAMBULA 2 DON DON STICK/TAB LET RGNT NON-AUTO W/O MICRSCP INJECTION J1040 TYESHA ARAMBULA 2 DON DON METHYLPRE DNISOLONE ACETATE 80 MG URNLS DIP 55330 OMARI SALCIDO 2 [facility] STICK/TAB INC INC [place] [address] OMARI SALCIDO TROPONIN 2 [facility] QUANTITAT INC INC RIGO NATRIURET 16947 OMARI SALCIDO IC 2 [facility] PEPTIDE INC INC BLOOD 74527 OMARI SALCIDO COUNT 2 [facility] COMPLETE INC INC AUTO&AUTO DIFRNTL WBC CREATINE 80479 OMARI SALCIDO KINASE MB 2 [facility] FRACTION INC INC ONLY ECG 90644 EMILY BOOTH ROUTINE 2 EMERGENCY SAJAN ECG SERVICES W/LEAST 12 LDS I&R ONLY CREATINE 61474 OMARI SALCIDO KINASE 2 [facility] TOTAL INC INC COMPREHEN 14529 OMARI SALCIDO SIVE 2 [facility] METABOLIC INC INC PANEL RADIOLOGI 51764 OMARI SALCIDO C 2 [facility] EXAMINATI INC INC ON CHEST SINGLE VIEW FRONTAL ECG 43419 OMARI SALCIDO ROUTINE 2 [facility] ECG INC INC W/LEAST 12 LDS TRCG ONLY W/O I&R THER 50903 OMARI SALCIDO PROPH/DX 2 [facility] NJX IV INC INC PUSH SINGLE/1S T SBST/DRUG INJECTION J2405 OMARI SALCIDO 2 [facility] ONDANSETR INC INC ON HCL PER 1 MG COMPREHEN 30263 OMARI SALCIDO SIVE 2 [facility] METABOLIC INC INC PANEL COLLECTIO 13237 OMARI SALCIDO N VENOUS 2 [facility] BLOOD INC INC VENIPUNCT URE INJECTION J3420 TYESHA ARAMBULA VIT B-12 2 DON DON CYANOCOBA JEWEL TO 1000 MCG TYMPANOME 58895 TYESHA ARAMBULA TRY 2 DON DON INJECTION J1040 TYESHA ARAMBULA 2 DON DON METHYLPRE DNISOLONE ACETATE 80 MG LIPID 24821 OMARI SALCIDO PANEL 2 [facility] INC INC BLOOD 61699 OMARI SALCIDO COUNT 2 [facility] COMPLETE INC INC AUTO&AUTO DIFRNTL WBC COLLECTIO 57219 OMARI SALCIDO N VENOUS 2 [facility] [place] [address] OMARI SALCIDO THYROID 2 [facility] STIMULATI INC INC NG HORMONE TSH COMPREHEN 59092 OMARI SALCIDO SIVE 2 [facility] METABOLIC INC INC PANEL COMPUTERI 94562 [facility]ERRY GARTH ZED 2 MEDICAL ORTEGA OPHTHALMI SERV C IMAGING FOUNDATIO RETINA OPHTH 82416 [facility] MEDICAL 2 MEDICAL ORTEGA XM&EVAL SERV COMPRHNSV FOUNDATIO ESTAB PT 1/> [place] [address] OMARI SALCIDO TRANSVAGI 2 [facility] NAL INC INC US PELVIC 01996 [facility] ZACH 2 MEDICAL LATRELL NONOBSTET IMAGING ZOEY ASS REAL-TIME IMAGE COMPLETE INJECTION J1040 TYESHA ARAMBULA 2 DON DON METHYLPRE DNISOLONE ACETATE 80 MG URNLS DIP 04101 TYESHA ARAMBULA 2 DON DON STICK/TAB LET RGNT NON-AUTO W/O MICRSCP INJECTION J3420 TYESHA ARAMBULA VIT B-12 2 DON DON CYANOCOBA JEWEL TO 1000 MCG URNLS DIP 11295 TYESHA ARAMBULA 2 DON DON STICK/TAB LET RGNT NON-AUTO W/O MICRSCP INJECTION J3420 TYESHA ARAMBULA VIT B-12 1 DON DON CYANOCOBA JEWEL TO 1000 MCG ADMINISTR G0008 TYESHA ARAMBULA ATION OF 1 DON DON INFLUENZA VIRUS VACCINE INFLUENZA Q2037 TYESHA ARAMBULA VACC 1 DON DON SPLIT VIRUS 3 YRS & > IM FLUVIRIN INJECTION J1040 TYESHA ARAMBULA 1 DON DON METHYLPRE DNISOLONE ACETATE 80 MG URNLS DIP 76503 TYESHA ARAMBULA 1 DON DON STICK/TAB LET RGNT NON-AUTO W/O MICRSCP INJECTION J3420 TYESHA ARAMBULA VIT B-12 1 DON DON CYANOCOBA JEWEL TO 1000 MCG URNLS DIP 10832 TYESHA ARZATES 1 DON DON STICK/TAB LET RGNT NON-AUTO W/O MICRSCP URNLS DIP 05283 TYESHA ARAMBULA 1 DON DON STICK/TAB LET RGNT NON-AUTO W/O MICRSCP CULTURE 90459 OMARI SALCIDO BACTERIAL 1 [facility] INC INC QUANTTATI VE COLONY COUNT URINE URNLS DIP 00780 TYESHA ARAMBULA 1 DON DON STICK/TAB LET RGNT NON-AUTO W/O MICRSCP URNLS DIP 95433 [place] [facility] [place] [facility] STICK/TAB CLINIC LET RGNT PSC NON-AUTO W/O MICRSCP URNLS DIP 15587 TYESHA ARAMBULA 1 DON DON STICK/TAB LET RGNT NON-AUTO W/O MICRSCP INJ J0702 TYESHA ARAMBULA BETAMETHA 1 DON DON SONE ACETATE & PHOSPHATE 3 MG INJECTION J3420 TYESHA ARAMBULA VIT B-12 1 DON DON CYANOCOBA JEWEL TO [address] THORAX 46408 [place] [facility] W/O 1 [facility] CONTRAST IMAGING MATERIAL ASS 3D 99808 [place] [facility] RENDERING 1 MEDICAL [facility] IMAGING W/INTERP& ASS POSTPROC DIFF WORK STATION CT THORAX 41628 OMARI SALCIDO 1 [facility] W/[place] [address] [place] [facility] ABDOMEN & 1 MEDICAL [facility]RE[facility] PELVIS IMAGING W/CONTRAS ASS T MATERIAL COMPREHEN 84220 [facility] SIVE 1 [facility] METABOLIC LABORATO LABORATO PANEL COLLECTIO 21524 [facility] N VENOUS 1 CLINIC CLINIC BLOOD LABORAT[place] [address] [facility] BLOOD/URI 1 CL[facility]IC CLINIC C ACID LABORATO LABORATO LACTATE 86519 [facility] DEHYDROGE 1 CLINIC CLINIC NASE LDH LABORATO LABORATO BLOOD 21245 [facility] COMPLETE LABORATO LABORATO AUTO&AUTO DIFRNTL WBC INJECTION J3420 TYESHA ARAMBULA VIT B-12 1 DON DON CYANOCOBA JEWEL TO 1000 MCG INJECTION J1040 TYESHA ARAMBULA 1 DON DON METHYLPRE DNISOLONE ACETATE 80 MG INJECTION J0690 TYESHA ARAMBULA 1 DON DON CEFAZOLIN SODIUM 500 MG URNLS DIP 61864 OMARI JEAN-BAPTISTE JR 1 [facility] STICK/TAB [facility] LET RGNT P NON-AUTO W/O MICRSCP INJECTION J1040 TYESHA ARAMBULA 1 DON DON METHYLPRE DNISOLONE ACETATE 80 MG LIPID 05205 OMARI SALCIDO PANEL 1 [facility] INC INC BLOOD 21669 OMARI SALCIDO COUNT 1 [facility] COMPLETE INC INC AUTO&AUTO DIFRNTL WBC COLLECTIO 01075 OMARI SALCIDO N VENOUS 1 [facility] BLOOD [place] [address] OMARI SALCIDO THYROID 1 [facility] STIMULATI INC INC NG HORMONE TSH COMPREHEN 02035 OMARI SALCIDO SIVE 1 [facility] METABOLIC INC INC PANEL INJECTION J1040 TYESHA ARAMBULA 1 DON DON METHYLPRE DNISOLONE ACETATE 80 MG INJECTION J1040 TYESHA ARAMBULA 0 DON DON METHYLPRE DNISOLONE ACETATE 80 MG GROUND A0425 [facility] MILEAGE 0 AMBULANCE AMBULANCE PER SERVICE SERVICE STATUTE MILE AMBULANCE A0429 [facility] SERVICE 0 AMBULANCE AMBULANCE BLS SERVICE SERVICE EMERGENCY TRANSPORT SIMPLE 69161 OMARI SALCIDO RPR 0 [facility] SCALP/NEC INC INC K/AX/KIRSTIE T/TRUNK 7.6-12.5C [place] [address] OMARI SALCIDO CLOSTRIDI 0 [facility] UM INC INC DIFFICILE TOXIN URNLS DIP 86179 TYESHA ARAMBULA 0 DON DON STICK/TAB LET RGNT NON-AUTO W/O MICRSCP OPHTH 02433 [facility] MED[facility] 0 MEDICAL [facility]TE[facility] XM&EVAL SERV COMPRHNSV FOUNDATIO ESTAB PT 1/> ADMINISTR G0008 TYESHA ARAMBULA ATION OF 0 DON DON INFLUENZA VIRUS VACCINE IIV3 73871 TYESHA ARAMBULA VACCINE 0 DON DON SPLIT VIRUS 0.5 ML DOSAGE IM USE INJECTION J1040 TYESHA ARAMBULA 0 DON DON METHYLPRE DNISOLONE ACETATE 80 MG INJECTION J1040 TYESHA ARAMBULA 0 DON DON METHYLPRE DNISOLONE ACETATE 80 MG URNLS DIP 75250 TYESHA ARZATES 0 DON DON STICK/TAB LET RGNT NON-AUTO W/O MICRSCP INJECTION J3420 ARAMBULA ARAMBULA VIT B-12 0 DON DON CYANOCOBA JEWEL TO 1000 MCG URNLS DIP 61967 ARAMBULA ARAMBULA 0 DON DON STICK/TAB LET RGNT NON-AUTO W/O MICRSCP URNLS DIP 62924 TYESHA ARAMBULA, 0 DON R DON R STICK/TAB LET RGNT NON-AUTO W/O MICRSCP INJECTION J1040 TYESHA ARAMBULA, 0 DON R DON R METHYLPRE DNISOLONE ACETATE 80 MG THERAPEUT 59676 OMARI SALCIDO IC 0 [facility] PROPHYLAC INC INC TIC/DX INJECTION SUBQ/IM URNLS DIP 05860 TYESHA ARAMBULA, 0 DON R DON R STICK/TAB LET RGNT NON-AUTO W/O MICRSCP INJECTION J1040 TYESHA ARAMBULA, 0 DON R DON R METHYLPRE DNISOLONE ACETATE 80 MG LACTATE 41214 [facility] DEHYDROGE 0 CLINIC CLINIC NASE LDH LABORATOR LABORATOR Y Y BLOOD 54114 [facility] COUNT 0 CLINIC CLINIC COMPLETE LABORATOR LABORATOR AUTO&[place] [address] [facility] BLOOD/URI 0 CLINIC CLINIC C ACID LABORATOR LABORATOR Y Y COLLECTIO 85878 [facility] N VENOUS 0 CLINIC CLINIC BLOOD LABORATOR LABORATOR VENIPUNCT Y Y URE COMPREHEN 79839 [facility] SIVE 0 CLINIC CLINIC METABOLIC LABORATOR LABORATOR PANEL Y Y INJECTION [id number] TYESHA ARAMBULA VIT B-12 0 DON R DON R CYANOCOBA JEWEL TO 1000 MCG RADIOLOGI 00207 Fredrick LYNNE EXAM 0 [facility] CHEST 2 IMAGING VIEWS ASSOCIATE FRONTAL&L S ATERAL THERAPEUT 76915 OMARI SALCIDO IC 0 [facility] PROPHYLAC INC INC TIC/DX INJECTION SUBQ/IM INJECTION J1040 TYESHA ARAMBULA, 0 DON R DON R METHYLPRE DNISOLONE ACETATE 80 MG COLLECTIO 19295 OMARI SALCIDO N VENOUS 0 [facility] [place]OD [place] [address] OMAR[facility] SALC[facility]O UREA 0 [facility] NITROGEN INC INC QUANTITAT RIGO CREATININ 09906 OMARI SALCIDO E BLOOD 0 [facility] INC INC 3D 94407 LORAINE SERRANO, RENDERING 0 MEDICAL DEAN W/INTERP IMAGING & [place] [address] LORAINE SERRANO HEAD/BRAI 0 MEDICAL DEAN N W/O & IMAGING W/CONTRAS ASSOCIATE T S MATERIAL RADEX HIP 09575 OMARI SALCIDO 0 [facility] [place] INC INC L COMPLETE MINIMUM 2 VIEWS RADIOLOGI 99670 OMARI SALCIDO C 0 [facility] EXAMINATI INC INC ON PELVIS 1/2 VIEWS URNLS DIP 04696 TYESHA ARAMBULA, 0 DON R DON R STICK/TAB LET RGNT NON-AUTO W/O MICRSCP BLOOD 16017 TYESHA ARAMBULA OCCULT 0 DON R DON R PEROXIDAS E ACTV QUAL FECES 1 DETER INJ J0702 TYESHA ARAMBULA BETAMETHA 0 DON R DON R SONE ACETATE & PHOSPHATE 3 MG 3D 39418 LORAINE SERRANO, RENDERING 9 [facility]ICAL DE[facility] IMAGING W/INTERP& ASSOCIATE POSTPROC S DIFF WORK STATION CREATININ 88747 OMARI SALCIDO E BLOOD 9 [facility] INC INC [place] THORAX 58923 [facility] W/CONTRAS [place]AG[place] [address] OMARI SALCIDO UREA 9 [facility] H[facility] NITROGEN INC INC QUANTITAT RIGO COLLECTIO 13145 OMARI SALCIDO N VENOUS 9 [facility] BLOOD INC INC VENIPUNCT URE SBSQ 21283 TYESHA ARAMBULA, NURSING 9 DON R DON R FACILITY CARE/DAY E/M STABLE 10 MIN HOSPITAL 53016 CARITO ARAMBULAS, DISCHARGE 9 DON R DON R DAY MANAGEMEN T 30 MIN/< SBSQ 10647 [place] [address] DON R DON R CARE/DAY 25 MINUTES SBSQ 200 62468 [place] [address] DON R DON R CARE/DAY 25 MINUTES SBSQ 49778 [place] [address] DON R DON R CARE/DAY 25 MINUTES RADIOLOGI 55671 [place] ZACH 9 [facility]ICAL DEAN EXAMINATI IMAGING ON CHEST ASSOCIATE SINGLE S VIEW FRONTAL SBSQ 70048 [place] [address] DON R DON R CARE/DAY 25 MINUTES SBSQ 200 33826 [place] [address] DON R DON R CARE/DAY 25 MINUTES ECG 38651 OMARI GUEVARA, VAZQUEZ 9 [facility] E ECG HOSPITAL W/LEAST PROF SERV 12 LDS I&R ONLY ANESTHESI 91013 [facility] Jacobo GAMINO OPEN 9 ANESTH JEN [facility] ARTHROPLA ST RADEX HIP 17230 [place] Candie SERRANO MEDICAL DEAN [place] IMAGING L 1 VIEW ASSOCIATE S SBSQ 15846 [place] [address] DON R DON R CARE/DAY 25 MINUTES DECALCIFI 41446 PATHOLOGY PATHOLOGY CATION 9 & & PROCEDURE [place] [address] PATHOLOGY PATHOLOGY SURG 9 & & PATHOLOGY CYTOLOGY CYTOLOGY LAB LAB GROSS&SAJAN ROSCOPIC EXAM PARTIAL 8152 OMARI SALCIDO HIP 9 [facility] REPLACEME INC INC NT HIP 0074 OMARI SALCIDO BEARING 9 [facility] SURFACE INC INC METAL-ON- POLYETHYL AYUSH GROUND A0425 [facility] AM[facility]UL[facility] PER SERVICE SERVICE STATUTE MILE INITIAL 93154 [facility] R DON R CARE/DAY 50 MINUTES AMB A0427 [facility] SERVICE 9 AMBULANCE AMBULANCE ALS SERVICE SERVICE EMERGENCY TRANSPORT LEVEL 1 RADEX HIP 76860 [place] Candie SERRANO [facility] [place] IMAGING L ASSOCIATE COMPLETE S MINIMUM 2 VIEWS ECG 39791 OMARI MAYDA ROUTINE 9 [facility] W/LEAST PROF SERV 12 LDS I&R ONLY RADIOLOGI 38682 [place] Fredrick SERRANO 9 MEDICAL DEAN EXAMINATI IMAGING ON CHEST ASSOCIATE SINGLE S VIEW FRONTAL RADIOLOGI 96311 [place] Fredrick SERRANO 9 MEDICAL DEAN EXAMINATI IMAGING ON PELVIS ASSOCIATE 1/2 S VIEWS OPHTH 58473 [place] [facility] 9 MEDICAL MARTINE Randall SINGLETON&EVAL SERV INTERMEDI FOUNDATIO ATE ESTAB PT ADMINISTR G0008 TYESHA ARAMBULA, ATION OF 9 DON R DON R INFLUENZA VIRUS VACCINE PPSV23 36745 TYESHA ARAMBULA VACCINE 2 9 DON R DON R YRS OR OLDER FOR SUBQ/IM USE IIV3 47367 TYESHA ARAMBULA VACCINE 9 DON R DON R SPLIT VIRUS 0.5 ML DOSAGE IM USE ADMINISTR G0009 TYESHA ARAMBULA ATION OF DON R DON R PNEUMOCOC CECILIA VACCINE URNLS DIP 73705 TYESHA ARAMBULA 9 DON R DON R STICK/TAB LET RGNT NON-AUTO W/O MICRSCP URNLS DIP 57017 TYESHA ARAMBULA 9 DON R DON R STICK/TAB LET RGNT NON-AUTO W/O MICRSCP INJECTION J3420 TYESHA ARAMBULA VIT B-12 9 DON R DON R CYANOCOBA JEWEL TO 1000 MCG RADEX 32306 [facility] SALCIDO WRIST 9 [facility] COMPLETE INC INC MINIMUM 3 VIEWS RADEX 99746 [facility] SALCIDO ANKLE 9 [facility]TE INC INC MINIMUM [address] PELVIS 47513 [place], 9 [facility]ICAL [facility] P W/[place] [address] [place], ABDOMEN 9 [facility] P W/CONTRAS IMAGING T ASSOCIATE MATERIAL S CT THORAX 20369 [place], 9 [facility] P W/CONTRAS IMAGING T ASSOCIATE MATERIAL S 3D 93766 [place], RENDERING 9 MEDICAL [facility] P IMAGING W/INTERP& ASSOCIATE POSTPROC S DIFF WORK STATION COMPREHEN 73340 [facility] SIVE 9 [facility] METABOLIC LABORATOR LABORATOR PANEL Y Y BLOOD 85096 [facility] COUNT 9 [facility] COMPLETE LABORATOR LABORATOR AUTO&AUTO Y Y DIFRNTL WBC COLLECTIO 72382 [facility] N VENOUS 9 [facility] BLOOD LABORATOR LABORATOR VENIPUNCT Y Y URE INJECTION J1040 TYESHA ARAMBULA, Candie DON R DON R METHYLPRE DNISOLONE ACETATE 80 MG INJECTION J3420 TYESHA ARAMBULA VIT B-12 9 DON R DON R CYANOCOBA JEWEL TO 1000 MCG COMPREHEN 69638 [facility] SIVE 9 [facility] METABOLIC LABORATOR LABORATOR PANEL Y Y BLOOD 78659 [facility] COUNT 9 [facility] COMPLETE LABORATOR LABORATOR AUTO&AUTO Y Y DIFRNTL WBC LACTATE 73491 [facility] DEHYDROGE 9 [facility] CLINIC NASE [place] [address] [facility] GAMMAGLOB 9 [facility] ULIN IGA LABORATOR LABORATOR IGD IGG Y Y IGM EACH COLLECTIO 65148 [facility] N VENOUS 9 [facility] BLOOD LABORATOR [place] [address] [facility] BLOOD/URI 9 CLINIC CLINIC C ACID LABORATOR LABORATOR Y Y TECHNETIU A9502 OMARI Hernandez TC-99M 9 [facility] TETROFOSM INC INC IN DX PER STUDY DOSE MYOCRD 44730 O[facility]I OMARI PRFUJ STD 9 [facility] EJEC FXJ INC INC MYOCRD 11832 [facility] OMARI PRFUJ IMG 9 [facility] TOMOG INC INC SPECT SUPERVISOR VARNISH STD CV STRS 14162 OMARI ROGER, TST 9 [facility] XERS&/OR HOSPITAL RX CONT PROF SERV ECG I&R ONLY CV STRS 14880 OMARI ROGER, TST 9 [facility] XERS&/OR HOSPITAL RX CONT PROF SERV ECG W/O I&R CV STRS 46892 OMARI SALCIDO TST 9 [facility] XERS&/OR INC INC RX CONT ECG TRCG ONLY MYOCRD 55509 OMARI SALCIDO PRFUJ STD 9 [facility] WALL INC INC MOTION QUAL/NAYE STD INJECTION J0152 OMARI SALCIDO 9 [facility] ADENOSINE INC INC DIAGNOSTI C USE 30 MG ECG 49873 TYESHA ARAMBULA, VAZQUEZ 9 DON R DON R ECG W/LEAST 12 LDS W/I&R RADIOLOGI 90882 TYESHA ARAMBULA C 9 DON R DON R EXAMINATI ON CHEST SINGLE VIEW FRONTAL RADIOLOGI 46626 TYESHA ARAMBULA C EXAM 9 DON R DON R PELVIS COMPL MINIMUM 3 VIEWS RADEX HIP 64519 TYESHA ARAMBULA 9 DON R DON R UNILATERA L COMPLETE MINIMUM 2 VIEWS INJECTION J1040 TYESHA ARAMBULA 9 DON R DON R METHYLPRE DNISOLONE ACETATE 80 MG INJECTION J1040 TYESHA ARAMBULA 8 DON R DON R METHYLPRE DNISOLONE ACETATE 80 MG LACTATE 73677 [facility] DEHYDROGE 8 CLINIC CLINIC NASE LDH LABORATOR LABORATOR Y Y BLOOD 83015 [facility] COUNT 8 [facility] COMPLETE LABORATOR LABORATOR AUTO&[place] [address] [facility] BLOOD/URI 8 [facility] CLINIC C ACID LABORATOR LABORATOR Y Y COLLECTIO 19605 [facility] N VENOUS 8 [facility] BLOOD LABORATOR LABORATOR VENIPUNCT Y Y URE COMPREHEN 83099 [facility] SIVE 8 [facility] CLINIC METABOLIC LABORATOR LABORATOR PANEL Y Y INJECTION J1040 TYESHA ARAMBULA, Roberta DON R DON R METHYLPRE DNISOLONE ACETATE 80 MG OPHTH [address]&EVAL SERV COMPRHNSV FOUNDATIO ESTAB PT 1/> ADMINISTR G0008 TYESHA ARAMBULA, ATION OF 8 DON R DON R INFLUENZA VIRUS VACCINE URNLS DIP 32677 TYESHA ARAMBULA 8 DON R DON R STICK/TAB LET RGNT NON-AUTO W/O MICRSCP IIV3 37186 TYESHA ARAMBULA, VACCINE 8 DON R DON R SPLIT VIRUS 0.5 ML DOSAGE IM USE THER 86462 [facility] PROPH/DX [address] [place] [address] NJX IV PUSH 1ST SBST/DRUG BLOOD [address] COMPLETE AUTOMATED HEPATIC 70333 [facility] FUNCTION [address] [place] [address] PANEL SODIUM 79389 [facility] SERUM [address] [place] [address] [place] B[place] [address] [facility] TROPONIN [address] [place] [address] QUANTITAT RIGO NATRIURET 35254 [facility] IC [address] [place] [address] PEPTIDE BLOOD 83296 [facility] GASES ANY [address] [place] [address] COMBINATI ON PH PCO2 PO2 CO2 HCO3 GLUCOSE [address] RIGO BLOOD XCPT REAGENT STRIP URNLS DIP [address] STICK/TAB [place] [address] [facility] UREA [address] [place] [address] [place] [address] [facility] LIPASE [address] [place] [address] POTASSIUM 37051 [facility] SERUM [address] [place] [address] PLASMA/WH OLE BLOOD IV NFUS 36611 [facility] HYDRATION [address] [place] [address] EA HR CHLORIDE 61980 [facility] BLD [address] [place] [address] ECG 06610 EMERGENCY ACKERMAN, ROUTINE 8 PHYS CARL W ECG [place] W/LEAST 12 LDS I&R ONLY INJECTION J24[address] ONDANSETR ON HCL PER 1 MG RADIOLOGI 27125 [facility] C EXAM [address] [place] [address] CHEST 2 VIEWS FRONTAL&L ATERAL ECG 58799 [facility] ROUTINE [address] [place] [address] ECG W/LEAST 12 LDS TRCG ONLY W/O I&R RADEX 13887 OMARI SALCIDO SPINE 8 [facility] INC AL MINIMUM 4 VIEWS RADIOLOGI 56079 TYESHA ARAMBULA C EXAM 8 DON R DON R CHEST 2 VIEWS FRONTAL&L ATERAL INJECTION J1040 TYESHA ARAMBULA, Roberta DON R [...] Type Date CRITICAL . ACCESS 7 7 [facility] O[facility]I - OUMOU 7 7 [facility] OMARI - [facility] 7 7 [facility] - 7 7 [facility] OUTPATIEN INC T [facility] - 7 7 [facility] OUTPATIEN INC T OFFICE 14370 [facility] RIKI OUTPATIEN 7 7 PHYSICIAN T VISIT S GROUP 25 MINUTES OFFICE 82285 [facility] RIKI OUTPATIEN 7 7 PHYSICIAN T VISIT S GROUP 25 MINUTES [facility]OSP[facility] - 7 7 [facility]PATIEN [facility] T [facility] - 7 7 [facility] OUTPATIEN INC T OFFICE 60018 [facility] RIKI OUTPATIEN 7 7 PHYSICIAN T VISIT S GROUP 40 MINUTES [facility]OSPITAL [facility] - 7 7 [facility] OUTPATIEN INC T OFFICE 93726 [facility]ERR[facility] ELAINE OUTPATIEN 7 7 MEDICAL T VISIT SERV 25 FOUNDATIO MINUTES [facility] OMARI - 7 7 [facility] OUTPATIEN INC T OFFICE 12745 [facility] RIKI OUTPATIEN 7 7 PHYSICIAN T VISIT S GROUP 40 MINUTES [facility]OSPITAL [facility] - 7 7 [facility] OUTPATIEN INC [facility] O[facility] - 7 7 [facility]PAT[facility]EN INC [facility] - 7 7 [facility]PATIEN INC T OFFICE 63776 MERRY HENRY OUTPATIEN 7 7 MEDICAL T NEW 60 SERV MINUTES [facility] OFFICE 26021 [facility] RIKI OUTPATIEN 7 7 PHYSICIAN T VISIT S GROUP 15 MINUTES [facility]OSP[facility] - 7 7 [facility] OUTPATIEN INC [facility] - 7 7 [facility]PAT[facility] INC [facility] - 7 7 [facility] T OFFICE 82534 [facility] RIKI OUTPATIEN 7 7 PHYSICIAN T NEW 60 S GROUP MINUTES [facility]OSP[facility] - 7 7 [facility] OUTPATIEN INC T [facility] 7 7 [facility] INC EMERGENCY 34089 [facility] 7 7 [facility] DEPARTMEN INC T VISIT LOW/MODER SEVERITY EMERGENCY 57634 [facility] MAK 7 7 PHYSICIAN DEPARTMEN S, PLLC T VISIT HIGH/URGE NT SEVERITY [facility] - 7 7 [facility] OUTPATIEN INC T OFFICE 51604 ISMAEL GUEVARA JR OUTANDRIY 7 7 T VISIT 15 MINUTES OFFICE 97785 [facility] OUTPATIEN 6 6 PORT DEPOSIT T NEW 20 CLINIC MINUTES [facility] INPATIENT 6 6 [facility] IN[facility] 6 6 [facility] - 6 6 [facility] INPATIENT 6 6 [facility] - 6 6 [facility] EMERGENCY 75972 [facility] 6 6 PHYSICIAN SARAH VISIT S, PLLC HIGH SEVERITY& THREAT FUNCJ EMERGENCY 28843 [facility] JAQUEZ 6 6 PHYSICIAN FOR DEPARTMEN S, PLLC T VISIT MODERATE SEVERITY OFFICE 23915 [facility] DYLAN SIMMONS OUTANDRIY 6 6 PHYSICIAN MANJINDER T VISIT S GROUP 10 MINUTES HOSPITAL [facility] - 6 6 [facility] OUTPATIEN INC T OFFICE 18284 ISMAEL GUEVARA JR OUTANDRIY 6 6 YOJANA DWI T VISIT 15 MINUTES OFFICE 48671 [facility] DYLAN SIMMONS OUTPATIEN 6 6 PHYSICIAN MANJINDER T VISIT S GROUP 15 MINUTES [facility]OSPITAL [facility] - 6 6 [facility] OUTPATIEN INC T OFFICE 05718 ISMAEL GUEVARA JR OUTPATIEN 6 6 YOJANA DWI T VISIT 15 MINUTES HOSPITAL [facility] - 6 6 [facility] 84097 ISMAEL GUEVARA JR OUTPATIEN 6 6 YOJANA DWI T VISIT 15 MINUTES OFFICE 92996 ISMAEL GUEVARA OUTPATIEN 6 6 YOJANA YOJANA T VISIT 15 MINUTES OFFICE 14761 ISMAEL GUEVARA JR OUTPATIEN 5 5 YOJANA DWI T VISIT 15 MINUTES [facility]OSPITAL [facility] - 5 5 [facility] OFFICE 36025 ISMAEL GUEVARA JR OUTPATIEN 5 5 YOJANA DWI T VISIT 15 MINUTES [facility]OSP[facility] - 5 5 [facility] - OTHER 5 5 [facility] OFFICE 24741 ISMAEL GUVEARA JR OUTPATIEN 5 5 YOJANA DWI T VISIT 15 MINUTES OFFICE 00312 [facility] DYLAN SIMMONS OUTPATIEN 5 5 PHYSICIAN MANJINDER T VISIT S GROUP 15 MINUTES HOSPITAL O[facility] - OTHER 5 5 [facility] OMARI - 5 5 [facility] OFFICE 44371 [facility] DYLAN SIMMONS OUTPATIEN 5 5 PHYSICIAN MANJINDER T VISIT S GROUP 25 MINUTES HOSPITAL [facility] - 5 5 [facility] 5 5 [facility] - OTHER 5 5 [facility] OTHER 5 5 [facility] OMAR[facility] - OTHER 5 5 [facility] OFFICE 61530 ISMAEL GUEVARA JR OUTPATIEN 5 5 YOJANA DWI T VISIT 15 MINUTES OFFICE 83859 ISMAEL GUEVARA JR OUTPATIEN 5 5 YOJANA DWI T VISIT 15 MINUTES HOSPITAL [facility] - 5 5 [facility] OUTPATI[facility] INC T EMERGENCY 17515 [facility] 5 5 [facility] DEPARTMEN INC T VISIT HIGH/URGE NT SEVERITY [facility]OSPITAL [facility] - OTHER 5 5 [facility] INC OFFICE 27740 ISMAEL GUEVARA JR OUTPATIEN 5 5 YOJANA DWI T VISIT 15 MINUTES OFFICE 04262 ISMAEL GUEVARA JR OUTPATIEN 4 4 YOJANA DWI T VISIT 15 MINUTES OFFICE 58128 ISMAEL GUEVARA JR OUTPATIEN 4 4 YOJANA DWI T VISIT 15 MINUTES HOSPITAL [facility] - 4 4 [facility] OUTPATIEN INC T OFFICE 91706 [facility] 4 4 [facility] T NEW 30 MEDICAL MINUTES G OFFICE 93511 ISMAEL GUEVARA JR OUTPATIEN 4 4 YOJANA DWI T VISIT 15 MINUTES HOSPITAL [facility] - 4 4 [facility] OUTPATIEN [facility] T OFFICE 45219 ISMAEL GUEVARA JR OUTPATIEN 4 4 YOJANA DWI T VISIT 15 MINUTES EMERGENCY 80961 O[facility] 4 4 [facility] DEPARTMEN INC T VISIT HIGH/URGE NT SEVERITY [facility]OSPITAL [facility] - 4 4 [facility] OUTPATIEN INC T EMERGENCY 82877 [facility] DE[facility] 4 4 MORGAN MOH VISIT EMERGENCY HIGH PHYS SEVERITY& THREAT FUNCJ OFFICE 06720 ISMAEL GUEVARA JR OUTPATIEN 4 4 YOJANA DWI T VISIT [address] ACCESS 4 4 PARTH[facility] EMERGENCY 44634 [facility] 4 4 [facility] MED CTR T VISIT MODERATE SEVERITY OFFICE 41483 ISMAEL GUEVARA JR OUTPATIEN 4 4 YOJANA DWI T VISIT 10 MINUTES HOSPITAL [facility] - OTHER 4 4 [facility] INC OFFICE 50851 ISMAEL GUEVARA JR OUTPATIEN 4 4 YOJANA DWI T VISIT 15 MINUTES OFFICE 96382 ISMAEL GUEVARA JR OUTPATIEN 4 4 YOJANA DWI T VISIT 15 MINUTES HOSPITAL [facility] - 4 4 [facility] OUTPATIEN INC T OFFICE 14753 ISMAEL GUEVARA JR OUTPATIEN 4 4 YOJANA DWI T VISIT 15 MINUTES HOSPITAL [facility] - OTHER 4 4 [facility] INC OFFICE 94921 ISAMEL GUEVARA JR OUTPATIEN 4 4 YOJANA DWI T VISIT 15 MINUTES EMERGENCY 34798 [facility] VISIT EMERGENCY HIGH PHYS SEVERITY& THREAT FUN OFFICE 94225 ISMAEL GUEVARA JR OUTPATIEN 4 4 YOJANA DWI T VISIT 15 MINUTES OFFICE 08141 ISMAEL GUEVARA JR OUTPATIEN 4 4 YOJANA DWI T VISIT 25 MINUTES HOSPITAL [facility] - 4 4 [facility] OUTPATIEN INC T EMERGENCY 61408 [facility] 4 4 MORGAN [facility] DEPARTMEN EMERGENCY T VISIT PHYS HIGH/URGE NT SEVERITY [facility]OSP[facility] - 4 4 [facility] OUTPATIEN INC T EMERGENCY 07228 [facility] 4 4 [facility] DEPARTMEN INC T VISIT MODERATE SEVERITY [facility] - 4 4 [facility] OUTPATIEN INC T EMERGENCY 87536 [facility] 4 4 [facility] DEPARTMEN INC T VISIT LOW/MODER SEVERITY EMERGENCY 16823 [facility] 4 4 [facility] EMERGENC[facility] T VISIT PHYS MODERATE SEVERITY [facility]OSP[facility] - OTHER 4 4 [facility] OMAR[facility] - 3 3 [facility]PATIEN [facility] OMARI - 3 3 [facility] OUTPATIEN [facility] T OFFICE 57696 ISMAEL GUEVARA JR OUTPATIEN 3 3 YOJANA DWI T VISIT 15 MINUTES OFFICE 77088 [facility] OUT[facility] 3 3 [place] T VISIT [facility]THOPAED [facility] MINUTES OFFICE 96938 [facility] SAJAN OUTPATIEN 3 3 [place] [facility]IN[facility] 15 PSC MINUTES OFFICE 89667 TYESHA ARAMBULA OUTPATIEN 3 3 DON DON T VISIT 15 MINUTES OFFICE 35140 TYESHA ARAMBULA OUTPATIEN 3 3 DON DON T VISIT 15 MINUTES EMERGENCY 67862 EMILY MERINO DEPT 3 3 EMERGENCY III VARUN VISIT SERVICES HIGH SEVERITY& THREAT FUNJ EMERGENCY 73941 [facility] 3 3 [facility] T VISIT LOW/MODER SEVERITY [facility]OSPITAL [facility] - 3 3 [facility] - 3 3 [facility] OUTPATIEN [facility] EMERGENCY 77863 [facility] 3 3 [facility] T VISIT LOW/MODER SEVERITY EMERGENCY 16703 EMILY BOOTH DEPT 3 3 EMERGENCY SAJAN VISIT SERVICES HIGH SEVERITY& THREAT FUNJ OFFICE 53880 TYESHA ARAMBULA OUTPATIEN 3 3 DON DON T VISIT 15 MINUTES HOSPITAL [facility] - 3 3 [facility] OUTPATIEN INC T OFFICE 97679 TYESHA ARAMBULA OUTPATIEN 3 3 DON DON T VISIT 25 MINUTES HOSPITAL [facility] - 3 3 [facility]PAT[facility]EN [facility] OFFICE 69403 ARAMBULA ARAMBULA OUTPATIEN 3 3 DON DON T VISIT 15 MINUTES HOSPITAL [facility] - 3 3 [facility]PATIEN [facility] - 3 3 [facility] - 3 3 [facility]PATI[facility] - 3 3 [facility]PATIEN [facility] - 3 3 [facility] - 3 3 [facility] - 3 3 [facility] - 3 3 [facility] OUTPATIEN [facility] OFFICE 04602 ARAMBULA ARAMBULA OUTPATIEN 3 3 DON DON T VISIT 15 MINUTES [facility]OS[facility] - 3 3 [facility] OUTPATIEN [facility] T OFFICE 04694 ARAMBULA ARAMBULA OUTPATIEN 2 2 DON DON T VISIT 15 MINUTES OFFICE 90983 ARAMBULA ARAMBULA OUTPATIEN 2 2 DON DON T VISIT 25 MINUTES OFFICE 90845 ARAMBULA ARAMBULA OUTPATIEN 2 2 DON DON T VISIT 25 MINUTES OFFICE 58108 ARAMBULA ARAMBULA OUTPATIEN 2 2 DON DON T VISIT 25 MINUTES OFFICE 24949 ARAMBULA ARAMBULA OUTPATIEN 2 2 DON DON T VISIT 15 MINUTES HOSPITAL [facility] - 2 2 [facility] OUTPATIEN [facility] T EMERGENCY 05437 [facility] 2 2 [facility] T VISIT HIGH/URGE NT SEVERITY EMERGENCY 99317 EMILY BOOTH DEPT 2 2 EMERGENCY SAJAN VISIT SERVICES HIGH SEVERITY& THREAT FUN OFFICE 26995 JAIME GEIGER SAJAN OUTPATIEN 2 2 [place] [facility] VIS[facility]INIC 15 PSC MINUTES HOSPITAL [facility] - 2 2 [facility] OUTPATIEN INC T OFFICE 83263 ARAMBULA ARAMBULA OUTPATIEN 2 2 DON DON T VISIT 15 MINUTES OFFICE 09961 ARAMBULA ARAMBULA OUTPATIEN 2 2 DON DON T VISIT 15 MINUTES HOSP[facility] - 2 2 [facility] - 2 2 [facility] OFFICE 27256 ARAMBULA ARAMBULA OUTPATIEN 2 2 DON DON T VISIT 15 MINUTES OFFICE 92439 ARAMBULA ARAMBULA OUTPATIEN 2 2 DON DON T VISIT 15 MINUTES OFFICE 28475 ARAMBULA ARAMBULA OUTPATIEN 1 1 DON DON T VISIT 15 MINUTES OFFICE 86210 ARAMBULA ARAMBULA OUTPATIEN 1 1 DON DON T VISIT 15 MINUTES OFFICE 78269 PAWSAT PAWSAT OUTPATIEN 1 1 Jan T VISIT 10 MINUTES OFFICE 76855 ARAMBULA ARAMBULA OUTPATIEN 1 1 DON DON T VISIT 15 MINUTES EMERGENCY 05722 EMILY NAVARRO 1 1 [facility] T VISIT MODERATE SEVERITY OFFICE 07375 ARAMBULA ARAMBULA OUTPATIEN 1 1 DON DON T VISIT 15 MINUTES HOSPITAL [facility] - 1 1 [facility] OUTPATIEN INC T OFFICE 75600 ARAMBULA ARAMBULA OUTPATIEN 1 1 DON DON T VISIT 15 MINUTES OFFICE 36593 ARAMBULA ARAMBULA OUTPATIEN 1 1 DON DON T VISIT 15 MINUTES OFFICE 79036 [place] 1 1 [place] [facility] CLINIC MINUTES PSC OFFICE 12465 ARAMBULA ARAMBULA OUTPATIEN 1 1 DON DON T VISIT 15 MINUTES OFFICE 02731 PAWSAT PAWSAT OUTPATIEN 1 1 MAR MAR T NEW 20 MINUTES [facility]OSP[facility] - 1 1 [facility] T OFFICE 20698 [facility] [place] T VISIT CLINIC 25 PSC MINUTES OFFICE 44494 ARAMBULA ARAMBULA OUTPATIEN 1 1 DON DON T VISIT 15 MINUTES OFFICE 66613 ARAMBULA ARAMBULA OUTPATIEN 1 1 DON DON T VISIT 15 MINUTES OFFICE 34164 ARAMBULA ARAMBULA OUTPATIEN 1 1 DON DON T VISIT 15 MINUTES OFFICE 09316 [facility] 1 1 [facility] 15 P MINUTES OFFICE 77033 ARAMBULA ARAMBULA OUTPATIEN 1 1 DON DON T VISIT 15 MINUTES OFFICE 73989 ARAMBULA ARAMBULA OUTPATIEN 1 1 DON DON T VISIT 15 MINUTES [facility] - 1 1 [facility] OUTPATI[facility] INC T OFFICE 96009 ARAMBULA ARAMBULA OUTPATIEN 1 1 DON DON T VISIT 15 MINUTES OFFICE 75942 ARAMBULA ARAMBULA OUTPATIEN 0 0 DON DON T VISIT 15 MINUTES OFFICE 98044 ARAMBULA ARAMBULA OUTPATIEN 0 0 DON DON T VISIT 15 MINUTES OFFICE 41349 ARAMBULA ARAMBULA OUTPATIEN 0 0 DON DON T VISIT 15 MINUTES OFFICE 33242 TYESHA ARZATES OUTPATIEN 0 0 DON DON T VISIT 15 MINUTES EMERGENCY 11932 [facility] 0 0 [facility] DEPARTMEN INC T VISIT LOW/MODER SEVERITY EMERGENCY 64903 EMILY BOOTH 0 0 EMERGENCY [facility] DEPARTMEN SERVICES T VISIT HIGH/URGE NT SEVERITY [facility] OUT[facility] INC T OFFICE 63725 TYESHA ARZATES OUTPATIEN 0 0 DON DON T VISIT 15 MINUTES [facility] T OFFICE 33567 TYESHA ARZATES OUTPATIEN 0 0 DON DON T VISIT 15 MINUTES OFFICE 03078 [facility] OUT[facility] 0 0 LTH VARUN T VISIT UROLOGY 15 PSC MINUTES OFFICE 25241 TYESHA ARZATES OUTPATIEN 0 0 DON DON T VISIT 15 MINUTES OFFICE 83750 [facility] JR OUTPATIEN 0 0 LTH VARUN T NEW 20 UROLOGY MINUTES PSC OFFICE 45366 TYESHA ARZATES OUTPATIEN 0 0 DON DON T VISIT 15 MINUTES OFFICE 00002 TYESHA ARZATES OUTPATIEN 0 0 DON DON T VISIT 15 MINUTES OFFICE 36825 ARAMBULA, ARAMBULA, OUTPATIEN 0 0 DON R DON R T VISIT 15 MINUTES EMERGENCY 62548 EMILY BOOTH, 0 0 EMERGENCY MADDY S DEPARTMEN SERVICES T VISIT HIGH/URGE ASSOCIATE NT S SEVERITY [facility] T EMERGENCY 53463 [facility] 0 0 [facility] DEPARTMEN INC T VISIT LIMITED/M INOR PROB OFFICE 87457 TYESHA ARAMBULA OUTPATIEN 0 0 DON R DON R T VISIT 15 MINUTES OFFICE 61403 JAIME FELYBANDAR 0 0 AKIKO Johnson T VISIT CLINIC 15 PSC MINUTES OFFICE 58094 TYESHA ARAMBULA OUTPATIEN 0 0 DON R DON R T VISIT 15 MINUTES EMERGENCY 85680 EMILY GUNN, 0 0 EMERGENCY [facility] SERVICES T VISIT HIGH/URGE ASSOCIATE NT S SEVERITY [facility] 0 [facility] OUTPATIEN INC T EMERGENCY 41086 [facility] 0 0 [facility] INC T VISIT LIMITED/M INOR PROB OFFICE 50901 TYESHA ARAMBULA OUTPATIEN 0 0 DON R DON R T VISIT 15 MINUTES [facility] 0 [facility] INC T OFFICE 74339 TYESHA ARAMBULA OUTPATIEN 0 0 DON R DON R T VISIT 15 MINUTES OFFICE 05330 [place] BANDAR MCLAIN 0 0 AND HAND NANDO A T NEW 10 SURGEONS MINUTES [facility] - 0 0 [facility] OUTPATIEN INC T OFFICE 13923 TYESHA ARAMBULA OUTPATIEN 0 0 DON R DON R T VISIT 25 MINUTES OFFICE 55143 TYESHA ARAMBULA OUTPATIEN 0 0 DON R DON R T VISIT 15 MINUTES OFFICE 40407 TYESHA ARAMBULA OUTPATIEN 9 9 DON R DON R T VISIT 15 MINUTES OFFICE 63390 TYESHA ARAMBULA OUTPATIEN 9 9 DON R DON R T VISIT 15 MINUTES [facility] 9 [facility] T [facility] - 9 9 [facility] INPATIENT INC EMERGENCY 78305 EMILY BOOTH DEPT 9 9 EMERGENCY MADDY Zak VISIT SERVICES HIGH SEVERITY& ASSOCIATE THREAT S FUNCJ OFFICE 56092 TYESHA ARAMBULA OUTPATIEN 9 9 DON R DON R T VISIT 15 MINUTES OFFICE 33540 TYESHA ARAMBULA OUTPATIEN 9 9 DON R DON R T VISIT 15 MINUTES OFFICE 96017 TYESHA ARAMBULA OUTPATIEN 9 9 DON R DON R T VISIT 15 MINUTES OFFICE 07596 TYESHA ARAMBULA OUTPATIEN 9 9 DON R DON R T VISIT 25 MINUTES [facility] - 9 9 [facility] T EMERGENCY 08711 EMILY RAINES 9 9 EMERGENCY [facility] DEPARTMEN SERVICES T VISIT HIGH/URGE ASSOCIATE NT S SEVERITY EMERGENCY 54018 [facility] 9 9 [facility] T VISIT MODERATE SEVERITY [facility] - 9 9 [facility] INC T OFFICE 08004 BANDAR CARRASCO 9 9 AKIKO MADDY Johnson T VISIT CLINIC 25 PSC MINUTES OFFICE 48057 TYESHA ARAMBULA OUTPATIEN 9 9 DON R DON R T VISIT 15 MINUTES OFFICE 06947 BANDAR CARRASCO 9 9 AKIKO MADDY Johnson T VISIT CLINIC 25 PSC MINUTES [facility] 9 9 [facility] INC T OFFICE 82582 TYESHA ARAMBULA OUTPATIEN 9 9 DON R DON R T VISIT 15 MINUTES OFFICE 58394 TYESHA ARAMBULA OUTPATIEN 9 9 DON R DON R T VISIT 15 MINUTES OFFICE 61736 TYESHA ARAMBULA OUTPATIEN 8 8 DON R DON R T VISIT 15 MINUTES OFFICE 12435 TYESHA ARAMBULA OUTPATIEN 8 8 DON R DON R T VISIT 15 MINUTES OFFICE 19481 TYESHA ARAMBULA OUTPATIEN 8 8 DON R DON R T VISIT 15 MINUTES OFFICE 51861 [facility] BANDAR BELL 8 8 [facility] 45 CLINIC MINUTES [facility] EMERGENCY 83209 [facility] 8 8 [facility] VISIT MODERATE SEVERITY EMERGENCY 38724 EMERGENCY ACKERMAN, DEPT 8 8 PHYS CARL W VISIT PORT DEPOSIT HIGH SEVERITY& THREAT [facility] [address] [place] [address] [facility] 8 8 [facility] 13834 TYESHA ARAMBULA OUTPATIEN 8 8 DON R DON R T VISIT 15 MINUTES OFFICE 36030 TYESHA ARAMBULA OUTPATIEN 8 8 DON R DON R T VISIT 15 MINUTES OFFICE [id number] TYESHA ARAMBULA OUTPATIEN 8 8 DON R DON R T VISIT 15 MINUTES OFFICE [id number] TYESHA ARAMBULA OUTPATIEN 8 8 DON R DON R T VISIT 15 MINUTES OFFICE [id number] TYESHA ARAMBULA OUTPATIEN 8 8 DON R DON R T VISIT 15 MINUTES
--- OUTSIDE RECORDS SUMMARY | 2017-08-19 20:54 | External Medical Summary Rpt | CCD ---
Author Author , KARLIE POPERAJAN Address Unknown Phone [email or web address] Team Providers Care Commercial Assistant Name Role Phone ALFARIS MOH, ALFARIS Unavailable Unavailable MOH ALLRAN JR MANJINDER, ALLRAN Unavailable Unavailable JR MANJINDER ANJUR-KAPALI CORNELIA, Unavailable Unavailable ANJUR-KAPALI CORNELIA [facility]available Unavailable [facility], [facility] Unavailable [facility], [facility] ALONSO BRO, GUPTA Unavailable Unavailable BRO BEINEKE ANGELIKA, BEINEKE Unavailable Unavailable ANGELIKA BESSON CASSANDRA, BESSON Unavailable Unavailable CASSANDRA BESSON, CARITO A, Unavailable Unavailable BESSON, CARITO A SALVADOR, SALVADOR Unavailable Unavailable SALVADOR ALL, SALVADOR ALL Unavailable Unavailable BRANGERS CONLEY, Unavailable Unavailable BRANGERS CONLEY [facility]available Unavailable SERVICE, [facility] Unavailable Unavailable SERVICE, [facility] ANDREA RAE IGN, Unavailable Unavailable ANDREA RAE IGN ACKERMAN, CARL W, Unavailable Unavailable ACKERMAN, CARL W DAMIAN SAJAN, DAMIAN SAJAN Unavailable Unavailable [facility] Unavailable Unavailable CAMPUS, [facility] Unavailable Unavailable ANESTHESIA, [facility]ESTH[facility]IA [facility] Unavailable Unavailable [facility] & Unavailable Unavailable D[facility]ILIER, [facility], Unavailable Unavailable [facility] BARROW JANET, BARROW Unavailable Unavailable JANET [facility] Unavailable Unavailable [facility], [facility] Unavailable Unavailable [facility], [facility] Unavailable Unavailable PSC, [facility] ANESTH OF [...] BOOTH S, Unavailable Unavailable MADDY BOOTH S [facility] Unavailable Unavailable INC, [facility] Unavailable [facility]available HOSPITAL P, [facility], Unavailable Unavailable [facility] HORN SAJAN, HORN SAJAN Unavailable Unavailable HORN, MADDY E, Unavailable Unavailable HORN, MADDY E BRENNAN JOSHI, BRENNAN Unavailable Unavailable ADI MAK, MAK Unavailable Unavailable LUCAS TRA, LUCAS TRA Unavailable Unavailable MANUELA ORTEGA, MANUELA Unavailable Unavailable ORTEGA CASEY CHARLES, CASEY CHARLES Unavailable Unavailable [facility] Un[facility] Unavailable GROUP PS, [facility] Un[facility] Unavailable [facility], [facility] Unavailable Unavailable [facility], [facility] Unavailable Unavailable MEDICAL G, [facility] MED[facility] G KORBA ORTEGA, KORBA ORTEGA [...] YOJANA E, Unavailable Unavailable ISMAEL, YOJANA E [facility] Unavailable Unavailable [facility] Unavailable Unavailable LABORATORY, [facility] Unavailable Unavailable SERVICES, [facility] RAY AND, Unavailable Unavailable RAY AND MAYDA SIMMONS JEN Unavailable Unavailable F, JEN OHARA JR F MARCO TRISTAN P, Unavailable Unavailable MARCO TRISTAN WILLIAM F, Unavailable Unavailable JEN GAMINO CLAUDETTE ORTEGA, CLAUDETTE Unavailable Unavailable ORTEGA ARABELLAMAHESH IRELAND M, Unavailable Unavailable ARABELLAMAHESH IRELAND M [facility] Unavailable Unavailable [facility] NANDO PEREZ, Unavailable Unavailable NANDO [...] Unavailable Unavailable RIKI, RIKI Unavailable Unavailable SIEMER LCARY, SIEMER Unavailable Unavailable CLARY VALDEZ DELMY, VALDEZ DELMY Unavailable Unavailable SOKAN BAB, SOKAN BAB Unavailable Unavailable MICHELLE EMELI, MICHELLE Unavailable Unavailable EMELI [facility] Unavailable Unavailable [facility], [facility] Unavailable Unavailable [facility], [facility] Unavailable Unavailable EMERGENCY PHYS, [facility] SHE, Unavailable Unavailable NISHA SHE [facility], Unavailable Unavailable [facility], Unavailable Unavailable [facility] TYESHA DON, Unavailable Unavailable ARAMBULA [...] 2016 Problems Code Diagnosis DOS Provider Status [id number] UNSPECIFIED 07-17-2017 ST. INJURY OF [place] HEAD [facility]THA INITIAL ENCOUNTER [id number] CONTUSION 07-17-2017 ST. OF LEFT [place] FOREARM PARTHA INITIAL ENCOUNTER [id number] LACERATION 07-17-2017 ST. W/O FOREIGN JESSE BODY LT PARTHA FOREARM INITIAL B23844 OTHER LONG 07-17-2017 . TERM [place] CURRENT PARTHA DRUG THERAPY Z9181 HISTORY OF 07-17-2017 [facility]. [place]ALL[place] JESSE GRANT E875 HYPERKALEMI 07-06-2017 [facility] A [facility] D649 ANEMIA 07-02-2017 [facility] UNSPECIFIED [facility] INC I10 ESSENTIAL 07-02-2017 [facility] PRIMARY [facility] HYPERTENSIO INC N K219 GASTRO-ESOP 07-02-2017 [facility] H REFLUX [facility] DISEASE INC WITHOUT ESOPHAGITIS N183 CHRONIC 07-02-2017 [facility] KIDNEY [facility] DISEASE INC STAGE 3 MODERATE R15676 UNSPECIFIED 06-28-2017 [facility] ASTHMA HOME WITH ACUTE MEDICAL EXACERBATIO EQUIPME N J90 PLEURAL 06-16-2017 [place] EFF[facility] NOT IMAGING ASS ELSEWHERE CLASSIFIED R0602 SHORTNESS 06-16-2017 [facility] BREATH MEDICAL IMAGING ASS R062 WHEEZING 06-16-2017 [facility] [place] R918 OTHER 06-16-2017 [place] NONSPECIFIC MEDICAL ABNORMAL IMAGING ASS FINDING OF LUNG FIELD I119 HYPERTENSIV 06-01-2017 [facility] E HEART PHYSICIANS DISEASE GROUP WITHOUT HEART FAILURE I4891 UNSPECIFIED 06-01-2017 [facility] ATRIAL PHYSICIANS FIBRILLATIO GROUP N R0600 DYSPNEA 06-01-2017 [facility] UNSPECIFIED [facility] INC Z950 PRESENCE OF 06-01-2017 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 C AORTIC PHYSICIANS VALVE GROUP INSUFFICIEN CY R296 REPEATED 04-27-2017 [facility] FALLS PHYSICIANS GROUP R5383 OTHER 04-27-2017 [facility] FATIGUE PHYSICIANS GROUP U00779 PAIN IN 04-23-2017 [place] LEFT ARM MEDICAL IMAGING ASS T14404 PAIN IN 04-23-2017 [facility] LEFT UPPER [facility] ARM INC R2232 LOCALIZED 04-23-2017 [facility] SWELLING [facility] MASS AND INC LUMP LEFT UPPER LIMB R600 LOCALIZED 04-23-2017 [place] EDEMA MEDICAL IMAGING ASS C8597 NON-HODGKIN 04-20-2017 [facility] LYMPHOMA [facility] UNSPECIFIED INC SPLEEN I272 OTHER 04-20-2017 [facility] SECONDARY [facility] PULMONARY INC HYPERTENSIO N I495 SICK SINUS 04-20-2017 [facility] SYNDROME PHYSICIANS GROUP R001 BRADYCARDIA 04-20-2017 [facility] PHYSICIANS UNSPECIFIED GROUP R002 PALPITATION 04-20-2017 [facility] S PHYSICIANS GROUP I482 CHRONIC 04-02-2017 [place] [facility] ATRIAL SERV FIBRILLATIO FOUNDATION N C8590 NON-HODGKIN 03-22-2017 [place] LYMPHOMA MEDICAL UNS IMAGING ASS UNSPECIFIED SITE I209 ANGINA 03-16-2017 [facility] PECTORIS [facility] UNSPECIFIED INC I208 OTHER FORMS 03-10-2017 [facility] OF ANGINA [facility] PECTORIS INC O45022 PERSONAL 02-26-2017 [place] [facility] HISTORY OT SERV [facility] THROMBOSIS& EMBOLISM F10241 ACUTE EMBO 02-23-2017 [facility] THROMB UNS PHYSICIANS DEEP VEINS GROUP UNS LOW EXTREM R42 DIZZINESS 02-23-2017 [facility] AND PHYSICIANS GIDDINESS GROUP I499 CARDIAC 02-03-2017 [facility] AR[facility]HYTHMIA [facility] P I517 CARDIOMEGAL 02-03-2017 [place] Y MEDICAL IMAGING ASS D11521 SPONDYLOSIS 02-03-2017 [place] W/O MEDICAL MYELOPATH/R IMAGING ASS ADICULOPATH Y CERV RGN D25522 OTHER 02-03-2017 [place] CERVICAL MEDICAL DISC IMAGING ASS DEGENERATIO N AT C5-C6 LEVEL R74336 OTHER 02-03-2017 [place] CERVICAL MEDICAL DISC IMAGING ASS DEGENERATIO N AT C6-C7 LEVEL M542 CERVICALGIA 02-03-2017 [place] [facility] M545 LOW BACK 01-13-2017 [facility] PAIN [facility] INC R109 UNSPECIFIED 01-13-2017 [facility] ABDOMINAL [facility] PAIN INC R110 NAUSEA 01-13-2017 [facility] INC Z8673 PERSONAL HX 01-13-2017 [facility] TIA & [facility] CEREB INC INFARCT NO RESID DEFICIT P82290 PAIN IN 01-05-2017 [place] LEFT HIP MEDICAL IMAGING ASS Y66120M FRACTURE 01-05-2017 [facility] LT IMAGING ASS PUBIS INIT ENC CLOS FX [id number] OTHER SPEC 01-05-2017 [facility] FX LT PUBIS PHYSICIANS, INITIAL PLLC CLOS FRACTURE J209 ACUTE 11-30-2016 ISMAEL SIMMONS BRONCHITIS UNSPECIFIED Z6830 BODY MASS 11-30-2016 ISMAEL JR INDEX BMI 30.0-30.9 ADULT H903 SENSORINEUR 08-04-2016 [place] EAR NOSE AL HEARING AND THROAT LOSS BILATERAL H905 UNSPECIFIED 08-04-2016 [facility] AL HEARING LOSS D539 NUTRITIONAL 06-08-2016 [facility] ANEMIA HEALTH UNSPECIFIED CAMPUS D62 ACUTE 06-08-2016 [facility] POSTHEMORRH HEALTH AGIC ANEMIA CAMPUS R410 DISORIENTAT 06-08-2016 [facility] ION HEALTH UNSPECIFIED CAMPUS B96049P FX UNS PART 06-08-2016 [facility] NECK LT HEALTH FEMUR CAMPUS SUBSQT CLOS FX RTN I90979 PRESENCE OF 06-08-2016 [facility] HIP JOINT M659 SYNOVITIS 04-27-2016 [facility] & TENOSYNOVIT DUBILIER IS UNSPECIFIED R2242 LOCALIZED 04-27-2016 [place] SWELLING MEDICAL MASS AND IMAGING ASS LUMP LEFT LOWER LIMB A463IKM INFECTION 04-27-2016 [facility] FOLLOWING [facility] PROCEDURE INC INITIAL ENCOUNTER Z4889 ENCOUNTER 04-27-2016 [facility] FOR OTHER [facility] SPECIFIED INC SURGICAL AFTERCARE Z471 AFTERCARE 04-23-2016 [place] FOLLOWING MEDICAL JOINT IMAGING ASS REPLACEMENT SURGERY Z7401 BED 04-09-2016 [facility] AMBULANCE STATUS SERVICE I129 HYPERTENSIV 04-05-2016 [facility] Johnson CKD [facility] W/STAGE 1-4 HOSPITAL P CKD OR UNS CKD F74564 [facility]D [place] 04-05-2016 [facility]ONZALEZ [facility] W/UNS INC ANGINA PECTORIS E03530 PAIN IN 04-05-2016 [place] LEFT THIGH MEDICAL IMAGING ASS N179 ACUTE 04-05-2016 [place] [facility] P UNSPECIFIED R079 CHEST PAIN 04-05-2016 [place] UNSPECIFIED MEDICAL IMAGING ASS M57452L FX UNS PART 04-05-2016 [facility] NECK LT PHYSICIANS, FEMUR PLLC INITIAL ENC CLOS FX [id number] UNS 04-05-2016 [place] INTRACAPSUL MEDICAL AR FX LT IMAGING ASS FEMUR INIT ENC CLOS FX [id number] UNSPECIFIED 04-05-2016 [facility] FALL PHYSICIANS INITIAL GROUP ENCOUNTER Z9889 OTHER 04-05-2016 [place] SPECIFIED MEDICAL POSTPROCEDU IMAGING ASS [facility] STATES R0781 PLEURODYNIA 03-30-2016 [place] [facility]ICAL [facility] ASS R0789 OTHER CHEST 03-30-2016 [facility] PAIN PHYSICIANS, PLLC R911 SOLITARY 03-30-2016 [place] PULMONARY MEDICAL NODULE IMAGING ASS R1031 RIGHT LOWER 03-23-2016 [facility] QUADRANT PHYSICIANS PAIN GROUP R197 DIARRHEA 02-25-2016 COMMUNITY UNSPECIFIED ANESTH OF THE BLUE L299 PRURITUS 02-21-2016 ISMA[facility] UNSPECIFIED YOJANA Z54553 SPONDYLOSIS 02-21-2016 [facility] W/O [place] MYELOPATH/R ADICULPATHY LS RGN N281 CYST OF 02-21-2016 [place] KIDNEY MEDICAL ACQUIRED IMAGING ASS R1030 LOWER 02-21-2016 [facility] ABDOMINAL [place] PAIN UNSPECIFIED R312 OTHER 02-21-2016 [facility] MICROSCOPIC [place] HEMATURIA R319 HEMATURIA 02-21-2016 [place] UNSPECIFIED MEDICAL IMAGING ASS Z6833 BODY MASS 02-21-2016 ISMA[facility] INDEX BMI YOJANA 33.0-33.9 ADULT R05 COUGH 01-07-2016 [place] [facility] R509 FEVER 01-07-2016 [place] UNSPECIFIED MEDICAL IMAGING ASS A084 VIRAL 12-18-2015 [facility] INTESTINAL [place] INFECTION UNSPECIFIED M150 PRIMARY 09-30-2015 [facility] GENERALIZED PHYSICIANS DAVID OSTEOARTHRI TIS Z23 ENCOUNTER 08-30-2015 [facility] FOR [place] IMMUNIZATIO N Z6831 BODY MASS 08-30-2015 ISMA[facility] INDEX BMI YOJANA 31.0-31.9 ADULT 2761 HYPOSMOLALI 08-02-2015 [facility] TY AND/OR [facility] HYPONATREMI INC A 2859 UNSPECIFIED 08-02-2015 [facility] ANEMIA [facility] INC 76062 UNS 08-02-2015 [facility] GASTRITIS&G [facility] ASTRODUODIT INC IS W/O MENTION HEMORR 98171 PAIN IN 08-02-2015 [place] JOINT MEDICAL PELVIC IMAGING ASS REGION AND THIGH 04608 OTHER 07-15-2015 [facility] DYSPNEA AND CO AMBULANCE RESPIRATORY TAXIN ABNORMALITI ES 0093 DIARRHEA OF 07-02-2015 [facility]MAEL PRESUMED [place]NA INFECTIOUS ORIGIN 4011 ESSENTIAL 07-02-2015 [facility] HYPERTENSIO Y[place]NA N, BENIGN 5853 CHRONIC 07-02-2015 [facility] KIDNEY [place] DISEASE STAGE III (MODERATE) 7242 LUMBAGO 07-02-2015 [place] [address] OTHER 07-02-2015 ISMAEL MALAISE AND YOJANA FATIGUE V8533 BODY MASS 07-02-2015 ISMAEL INDEX YOJANA 33.0-33.9 ADULT 7295 PAIN IN 06-24-2015 [place] SOFT MEDICAL TISSUES OF IMAGING ASS LIMB 7823 EDEMA 06-24-2015 [facility] [facility] 2724 OTHER AND 06-21-2015 ISMAEL UNSPECIFIED [place] HYPERLIPIDE SHERYL 69110 DEHYDRATION 06-21-2015 ISMAEL YOJANA 412 OLD 06-21-2015 [facility] MYOCARDIAL [place] INFARCTION 79974 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 [facility] NODE [place] DYSFUNCTION 45058 ATROPHIC 06-21-2015 [facility] GASTRITIS Y[place]NA WITHOUT MENTION OF HEMORRHAGE 85151 OTHER 06-21-2015 [place] ALTERATION [place]ICAL [place] [address] FEVER 06-21-2015 ISMAEL UNSPECIFIED YOJANA 50847 ALTERED 06-21-2015 [place] MENTAL MEDICAL STATUS IMAGING ASS 7862 COUGH 06-21-2015 [facility] [facility] V1079 PERSONAL HX 06-21-2015 [facility] OTH [place] LYMPHATIC&H EMATOPOIETI C NEOPLASM V1254 PERSONAL HX 06-21-2015 [facility] TIA & CI Y[place]NA W/O RESIDUAL DEFICITS 5990 URINARY 06-12-2015 [facility] TRACT PHYSICIANS INFECTION LA SITE NOT SPECIFIED 22619 OTH & UNS E 05-28-2015 [facility] COLI [facility] INFECTION INC CLASS ELSW UNS SITE 69265 UNSPECIFIED 05-24-2015 [place] [address] GENERALIZED 05-24-2015 ISMAEL YOJANA OSTEOARTHRO SIS UNSPECIFIED SITE 7213 LUMBOSACRAL 05-24-2015 ISMAEL Y[place]JANA SPONDYLOSIS WITHOUT MYELOPATHY V8534 BODY MASS 05-24-2015 IS[facility] INDEX YOJANA 34.0-34.9 ADULT 98302 ABDOMINAL 04-15-2015 [facility] PAIN RIGHT PHYSICIANS LOWER GROUP QUADRANT 31759 PAIN IN 03-26-2015 [facility] JOINT, [facility] SHOULDER INC REGION 23817 DIARRHEA 03-26-2015 [facility] INC 12301 OTH MALIG 03-01-2015 [place] LYMPHOMAS MEDICAL UNS SITE IMAGING ASS XTRANOD&SEBAS ID ORGN 5932 ACQUIRED 03-01-2015 [place] CYST OF MEDICAL KIDNEY IMAGING ASS 63650 ABDOMINAL 03-01-2015 [facility] PAIN, LEFT [facility] LOWER INC QUADRANT 18127 ESOPHAGEAL 01-30-2015 [facility] RE[facility]UX PHYS SURG CTR 57422 GASTR ULCR 01-30-2015 [facility] UNS PHYS SURG ACUT/CHRN CTR W/O HEMOR PERF/OBST 5379 UNSPECIFIED 01-30-2015 [facility] DISORDER [facility] & OF STOMACH DUBILIER AND DUODENUM 33825 NAUSEA 01-30-2015 [facility] [place] ANESTHESIA 14657 ABDOMINAL 01-30-2015 [facility] PAIN, [place] EPIGASTRIC ANESTHESIA 31824 NONEXUDATIV 01-29-2015 [place] 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 34122 REGULAR 01-29-2015 [place] ASTIGMATISM EYE INSTITUTE 75506 OTHER 01-25-2015 [facility] SPECIFIED [place] ERYTHEMATOU S CONDITION OTHER 460 ACUTE 12-19-2014 [facility] NASOPHARYNG [place] ITIS 99617 ASTHMA, 12-19-2014 [facility] UNSPECIFIED Y[place]NA , UNSPECIFIED STATUS 4660 ACUTE 12-16-2014 [facility] BRONCHITIS [facility] INC V8535 BODY MASS 12-07-2014 [facility] INDEX YO[place] 35.0-35.9 ADULT 4779 ALLERGIC 10-30-2014 [facility] RHINITIS [place] CAUSE UNSPECIFIED 4019 UNSPECIFIED 10-18-2014 [facility] ESSENTIAL [facility] HYPERTENSIO INC N 73583 COR 10-18-2014 [facility] ATHEROSLERO [facility] UNSPEC INC TYPE VESSEL [place]/M[place]RO T 03378 CHEST PAIN 10-18-2014 [place] [facility] UNSPECIFIED SERV FOUNDATION 92902 CORONARY 10-11-2014 [facility] OSIS [place] MEDICAL G CORONARY ARTERY 7851 PALPITATION 10-11-2014 [facility] G 72553 PRECORDIAL 10-11-2014 [facility] MEDICAL G 4610 ACUTE 10-01-2014 ISMAEL MAXILLARY [place] SINUSITIS 4720 CHRONIC 10-01-2014 ISMAEL RHINITIS [place] 7881 DYSURIA 10-01-2014 ISMAEL Y[place] 49902 SHORTNESS 09-18-2014 [facility] MEDICAL IMAGING ASS 4139 OTHER AND 09-12-2014 [facility] UNSPECIFIED [facility] ANGINA INC PECTORIS 5758 OTHER 09-12-2014 [facility] SPECIFIED [facility] DISORDER OF INC GALLBLADDER 17387 OTHER 09-12-2014 [facility] CONVULSIONS [facility] INC 59141 OTHER CHEST 09-12-2014 [facility] EMERGENCY PHYS V140 PERSONAL 09-12-2014 [facility]IST[facility] V148 PERSONAL 09-12-2014 [facility] HISTORY [facility] ALLERGY [facility] P SPEC MEDICINAL AGTS V1582 PERS HX 09-12-2014 [facility] TOBACCO USE [facility] PRESENTING INC HAZARDS HEALTH V719 OBSERVATION 09-12-2014 [place] FOR MEDICAL UNSPECIFIED IMAGING ASS SUSPECTED CONDITION 51604 UNSPEC 08-28-2014 [facility] DISORDERS [place] BURSAE&TEND ONS SHOULDER REGION 23359 CONTUSION 08-28-2014 [facility] OF SHOULDER [place] REGION [...] MYOSITIS 7827 SPONTANEOUS 08-06-2014 [facility] ECCHYMOSES [place] 87296 DIVERTICULI 07-24-2014 [facility] TIS OF [place] COLON 7243 SCIATICA 07-16-2014 [facility] INC 5693 HEMORRHAGE 05-21-2014 [facility] OF RECTUM [place] AND ANUS 7802 SYNCOPE AND 05-21-2014 [facility] COLLAPSE [place] 5589 OTH&UNSPEC 05-09-2014 [facility] NONINFECTIO [facility] P GASTROENTER ITIS&COLITI S 58968 NAUSEA WITH 05-09-2014 [place] VOMITING [facility] P E9390 ANTIDEPTSSN 05-09-2014 [facility] T CAUS [facility] P EFFECT THERAPEUTIC USE 87049 OTHER 05-08-2014 [facility] SPECIFIED N EMERGENCY CARDIAC PHYS DYSRHYTHMIA S 5789 UNSPECIFIED 05-08-2014 ISMA[facility] HEMORRHAGE [place] OF GASTROINTES TINAL TRACT 7852 UNDIAGNOSED 05-08-2014 [place] [facility] CARDIAC SERV MUR[place]URS FOUNDATIO 496 CHRONIC 03-06-2014 [place] AIRWAY MEDICAL OBSTRUCTION IMAGING ASS NEC 5110 PLEURISY 03-06-2014 [facility] WITHOUT [place] MENTION EFFUS/CURRE NT TB 7197 DIFFICULTY 03-06-2014 [place] IN WALKING MEDICAL IMAGING ASS 41474 CONTUSION 03-06-2014 IS[facility] OF FOOT [place] 8488 OTHER 02-26-2014 [facility] SPECIFIED N EMERGENCY SITES OF PHYS SPRAINS AND STRAINS V141 PERSONAL 02-26-2014 [facility] ALLERGY INC OTHER ANTIBIOTIC AGENT 65178 UNSPECIFIED 01-26-2014 [facility] VIRAL N EMERGENCY INFECTION PHYS IN CCE & UNS SITE 7245 UNSPECIFIED 01-26-2014 [facility] BACKACHE N EMERGENCY PHYS 0091 COLITIS 01-04-2014 [facility] ENTERIT&GAS HOME TROENTERIT MEDICAL INF ORIGIN EQUIPME 436 ACUTE BUT 01-04-2014 [facility] ILL-DEFINED HOME MEDICAL CEREBROVASC EQUIPME ULAR DISEASE 7231 CERVICALGIA 10-24-2013 [facility] INC 3674 PRESBYOPIA 07-03-2013 [facility] [place] [facility] V431 LENS 07-03-2013 [place] REPLACED BY EYE OTHER INSTITUTE MEANS 7224 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-30-2013 [facility] [place] 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 83893 MACULAR 04-04-2013 TYESHA WINTER DON N OF RETINA UNSPECIFIED 20637 STRABISMIC 03-22-2013 [place] [facility] AMBLYOPIA SERV FOUNDATIO 59117 OTHER 03-22-2013 [place] MEDICAL VITREOUS SERV OPACITIES FOUNDATIO 8052 CLOS FX 02-27-2013 [facility] DORS DON VERTEBRA W/O MENTION SP CORD INJURY 14764 LEUKOCYTOSI 02-23-2013 [facility] S [facility]Y UNSPECIFIED SERVICES V5878 AFTERCARE 02-23-2013 [facility] FOLLOW EMERGENCY SURGERY SERVICES [place]EL [place]EC 05012 ACUTE PAIN 02-22-2013 [facility] DUE TO EMERGENCY TRAUMA SERVICES 91308 PATHOLOGIC 02-22-2013 [place] FRACTURE OF ANESTHESIA VERTEBRAE GROUP PS V7283 OTHER 02-21-2013 [facility] [place] SPECIFIED RADIOLOGY PRE-OPERATI VE EXAMINATION 14161 DISPLCMT 02-20-2013 [place] LUMBAR MEDICAL INTERVERT IMAGING ASS DISC W/O MYELOPATHY 92734 SPINAL STEN 02-20-2013 [place] LUMB REG MEDICAL W/O IMAGING ASS NEUROGENIC CLAUDICATIO N E8888 OTHER FALL 02-20-2013 [facility] 6259 UNSPEC 02-15-2013 [place] SYMPTOM MEDICAL ASSOC IMAGING ASS W/FEMALE GENITAL ORGANS 7840 HEADACHE 02-15-2013 [place] MEDICAL IM[facility] ASS 8470 NECK SPRAIN 02-15-2013 [facility] AND STRAIN EMERGENCY SERVICES 8472 LUMBAR 02-15-2013 [facility] SPRAIN AND EMERGENCY STRAIN SERVICES 8500 CONCUSSION 02-15-2013 [facility] WITH NO EMERGENCY LOSS OF SERVICES CONSCIOUSNE SS 9222 CONTUSION 02-15-2013 [facility] OF EMERGENCY ABDOMINAL SERVICES WALL 90187 CONTUSION 02-15-2013 [facility] OF HIP [facility] INC 13761 HEAD 02-15-2013 [place] INJURY, MEDICAL UNSPECIFIED IMAGING ASS V4364 HIP JOINT 02-15-2013 [place] REPLACEMENT MEDICAL BY OTHER IMAGING ASS MEANS 4659 ACUTE URIS 02-13-2013 [facility] OF DON UNSPECIFIED SITE 7804 DIZZINESS 02-13-2013 [facility] GIDDINESS 50618 PAIN IN 01-18-2013 [facility] JOINT, [facility]OS[facility] MULTIPLE INC SITES 40858 PAIN IN 01-17-2013 [facility] JOINT, DON LOWER LEG 9597 INJURY 01-17-2013 [facility] OTHER&UNSPE DON CIFIED KNEE LEG ANKLE&FOOT 95231 UNSPECIFIED 12-27-2012 [place] [facility] [place] [address] METHICILLIN 12-23-2012 [facility] RESISTANT [facility] STAPHYLOCOC INC CUS AUREUS 34451 OTHER 12-23-2012 [facility] DISEASES OF [facility]OS[facility] NASAL INC CAVITY AND SINUSES 49481 NASAL 12-06-2012 [facility] MUCOSITIS DON ULCERATIVE 7078 CHRONIC 12-06-2012 [facility] ULCER OF [facility] OTHER INC SPECIFIED SITE 3804 IMPACTED 08-03-2012 [facility] CERUMEN DON 73605 CHRONIC 08-03-2012 [facility] FATIGUE DON SYNDROME 94432 OTHER 06-22-2012 [facility] CHRONIC DON PAIN 7873 FLATULENCE 06-17-2012 [facility] ERUCTATION DON AND GAS PAIN 23743 OTHER 06-03-2012 [facility] SPECIFIED DON TYPES OF CYSTITIS 4293 CARDIOMEGAL 05-14-2012 [facility] MEDICAL IMAGING ASS 59441 NONSPECIFIC 05-14-2012 [facility] EMERGENCY ELECTROCARD SERVICES IOGRAM V1090 PERSONAL 05-14-2012 [place] HISTORY MEDICAL UNSPECIFIED IMAGING ASS MALIGNANT NEOPLASM V711 OBSERVATION 05-14-2012 [place] FOR MEDICAL SUSPECTED IMAGING ASS MALIGNANT NEOPLASM OTHER 04-28-2012 NEW MALIGNANT [facility] OF SPLEEN 3898 OTHER 02-17-2012 [facility] SPECIFIED DON FORMS OF HEARING LOSS 42499 GASTROJEJ 02-17-2012 [facility] ULCR UNS DON ACUT/CHRN W/O HEMOR PERF/OBST 02264 PAIN IN 01-06-2012 [facility] JOINT, SITE [facility] HOS[facility] INC UNSPECIFIED 6160 CERVICITIS 12-16-2011 [place] AND MEDICAL ENDOCERVICI IMAGING ASS TIS 6203 ACQUIRED 12-16-2011 [place] ATROPHY OF MEDICAL OVARY AND IMAGING ASS FALLOPIAN TUBE 6219 UNSPECIFIED 12-16-2011 [place] DISORDER MEDICAL OF UTERUS IMAGING ASS 75658 OSTEOARTHRO 12-11-2011 [facility] S INVLV MX DON SITES BUT NOT SPEC GEN 11012 HEMATURIA 11-30-2011 [facility] UNSPECIFIED DON 83532 OTHER 11-30-2011 [facility] SPECIFIED DON DISORDERS OF URINARY TRACT 96852 UNSPECIFIED 10-19-2011 [facility] OTALGIA DON 37243 MUSCLE 10-19-2011 [facility] WEAKNESS DON (GENERALIZE D) 31777 DIVERTICULO 07-22-2011 [facility] SIS OF DON COLON 1104 DERMATOPHYT 07-10-2011 [facility] OSIS OF FOOT 9168 OTH&UNS SUP 07-07-2011 [facility] INJR HIP DON THI LEG&ANK W/O MENTION INF 9190 ABRASION/FR 06-26-2011 [facility] OTH MX&UNS SERVICES SITE W/O INF 5950 ACUTE 05-28-2011 NEW CYSTITIS [facility] 6929 CONTACT 05-22-2011 [facility] DERMATITIS& OTHER ECZEMA DUE UNSPEC CAUSE 7011 ACQUIRED 05-22-2011 [facility] KERATODERMA 80713 OTHER 04-20-2011 [facility] SPECIFIED DON CIRCULATORY SYSTEM DISORDERS 64393 CONTUSION 04-20-2011 [facility] MULTIPLE DON SITES SHOULDER&UP PER ARM 5952 OTHER 02-05-2011 [facility] 1129 CANDIDIASIS 01-07-2011 [facility] OF DON UNSPECIFIED SITE 4280 CONGESTIVE 01-07-2011 [facility] HEART DON FAILURE UNSPECIFIED 2768 HYPOPOTASSE 12-31-2010 [facility] HOSP INC 8910 OPEN WOUND 10-22-2010 [place] KNEE DON LEG&ANK WITHOUT MENTION COMP V5832 ENCOUNTER 10-22-2010 [place] FOR REMOVAL DON OF SUTURES 54286 PHACOLYTIC 08-06-2010 [place] [facility] 4618 OTHER ACUTE 07-29-2010 [facility] SINUSITIS DON 1880 MALIGNANT 06-26-2010 [facility] NEOPLASM OF H UROLOGY [facility] URINARY BLADDER 09396 SPASM OF 06-06-2010 [facility] MUSCLE DON 17722 DEGEN 05-04-2010 [facility] LUMBAR/LUMB EMERGENCY OSACRAL SERVICES [facility] RAL DISC OTHER MALIG 04-22-2010 [place] LYMPHOMAS [place] LYMPH NODES [facility] MULTIPLE SITES V6709 FOLLOW-UP 01-17-2010 [place] [facility]TH[facility] EXAMINATION AND HAND FOLLOWING SURGEONS OTHER [facility] SURGERY 6256 FEMALE 01-13-2010 [facility], STRESS DON R INCONTINENC E V7651 SPECIAL 01-13-2010 [place], SCREENING DON R FOR MALIGNANT NEOPLASMS COLON 1629 MALIGNANT 09-09-2009 [place] NEOPLASM [facility] UNSPEC ASSOCIATES SITE 4148 OTHER SPEC 08-30-2009 [facility], FORMS DON R CHRONIC ISCHEMIC HEART DISEASE 8208 CLOSED 08-30-2009 [place], FRACTURE DON R UNSPECIFIED PART NECK FEMUR 44606 POSTPROCEDU 08-21-2009 [facility] PROF SERV 81955 OTHER 08-20-2009 PATHOLOGY & CLOSED CYTOLOGY TRANSCERVIC LAB AL FRACTURE OF FEMUR 27659 INF DUE OTH 08-19-2009 [facility] GM-NEGATIVE INC ORGANISMS CCE & UNS SITE 46549 ABDOMINAL 08-19-2009 [facility] OTHER EMERGENCY SPECIFIED SERVICES SITE ASSOCIATES 89261 CLOSED 08-19-2009 [facility] DISLOCATION AMBULANCE OF HIP SERVICE UNSPECIFIED SITE 9596 INJURY 08-19-2009 [facility] OTHER AND AMBULANCE UNSPECIFIED SERVICE HIP AND THIGH E8859 FALL FROM 08-19-2009 [facility] OTHER EMERGENCY SLIPPING SERVICES TRIPPING OR ASSOCIATES STUMBLING 24391 UNSPECIFIED 08-14-2009 [place] [facility] OPACITY FOUND[facility] V0382 NEED PROPH 07-31-2009 [facility], VACCINATION DON R AGAINST STREP PNEUMONE 93670 SPRAIN AND 06-10-2009 [place], STRAIN OF DON R UNSPECIFIED SITE OF WRIST 95418 UNSPECIFIED 06-10-2009 [place], SITE OF DON R ANKLE SPRAIN AND STRAIN E8490 PLACE OF 06-07-2009 [place] OCCURRENCE, [facility] E8844 ACCIDENTAL 06-07-2009 [facility] FALL FROM [facility]ERGENCY BED SERVICES [facility] 75040 SECONDARY 09-19-2008 [place] [facility] EDEMA FOUND[facility] 97255 SPONDYLOSIS 08-22-2008 NEW UNSPEC [place] SITE W/O CLINIC PSC MENTION MYELOPATHY V1072 PERSONAL 08-22-2008 NEW HISTORY OF [facility] PSC DISEASE 02039 ATRIAL 07-01-2008 [facility] N 44304 ABDOMINAL/P 07-01-2008 [facility] SWELLING MASS/LUMP UNSPEC SITE 15071 UNSPECIFIED 03-02-2008 [facility] OSTEOPOROSI S Immunization [...] R T VIRU S 0.5 ML DOSA RESPACE IM USE Procedures Procedure DOS Code Location Performer Comment RADEX [address] HUMERUS 7 [facility] MINIMUM 2 [facility] VIEWS [place] [address] ROUTINE 7 [facility] ECG PARTHA PARTHA W/LEAST 12 LDS TRCG ONLY W/O I&[place] [address] HEAD/BRAI 7 [facility] N W/O [facility]THA PARTHA CONTRAST MATERIAL RADIOLOGI [address] C 7 [facility] EXAMINATI PARTHA PARTHA ON CHEST SINGLE VIEW FRONTAL BASIC [address] METABOLIC 7 [facility] PANEL PARTHA PARTHA CALCIUM TOTAL COLLECTIO [address] N VENOUS 7 [facility] BLOOD PARTHA PARTHA VENIPUNCT URE CULTURE [address] [facility] BACTERIAL 7 [facility] PARTHA PARTHA QUANTTATI VE COLONY COUNT URINE URNLS DIP [address] [facility] 7 [facility] STICK/TAB PARTHA PARTHA LET REAGENT AUTO MICROSCOP Y BLOOD [address] COUNT 7 [facility] COMPLETE PARTHA PARTHA AUTO&AUTO DIFRNTL WBC [facility]IC [facility]EL [facility] CALCIUM TOTAL BASIC 13345 [facility] PANEL INC INC CALCIUM TOTAL BLOOD 66991 [facility] COMPLETE INC INC AUTO&AUTO DIFRNTL WBC NEBULIZER E0570 MICHELLE MARTINEZ WITH 7 HOME HOME COMPRESSO MEDICAL MEDICAL R EQUIPME EQUIPME RADIOLOGI 45111 [facility] EXAM 7 MEDICAL CHEST 2 IMAGING VIEWS ASS FRONTAL&L ATERAL ECG 93087 [facility] ROUTINE 7 [facility] ECG INC INC W/LEAST 12 LDS TRCG ONLY W/O I&R ECG 66308 [facility] ROUTINE 7 PHYSICIAN ECG S GROUP W/LEAST 12 LDS I&R ONLY INTERROGA 98291 [facility] RIKI TION EVAL 7 PHYSICIAN REMOTE S GROUP </90 D 1/2/[employer] PRINCIPAL LEAD PM ECG [address] [facility] RIKI ROUTINE 7 PHYSICIAN ECG S GROUP W/LEAST 12 LDS I&R ONLY ECG 77307 [facility] ROUTINE 7 [facility] ECG INC INC W/LEAST 12 LDS TRCG ONLY W/O I&R DUP-SCAN 00831 [place] [facility] XTR VEINS 7 MEDICAL IMAGING [place]A ASS L/LIMITED [facility] G0378 [facility] OBSERVATI 7 [facility] ON INC INC SERVICE PER HOUR BLOOD 73204 [facility] COUNT 7 [facility] COMPLETE INC INC AUTO&AUTO DIFRNTL WBC COLLECTIO 59252 [facility] N VENOUS 7 [facility] BLOOD INC INC VENIPUNCT URE BASIC 85517 [facility] METABOLIC 7 [facility] PANEL INC INC CALCIUM TOTAL NONINVASI 16494 [facility] VE 7 [facility] EAR/PULSE INC INC OXIMETRY SINGLE DETER PRESSURIZ 57443 [facility] ED/NONPRE 7 [facility] SSURIZED [place] [address] [facility] INFUSION 7 [facility] THERAPY/P INC INC ROPHYLAXI S /DX 1ST TO 1 HR THERAPEUT 89038 [facility] IC 7 [facility] INJECTION INC INC IV PUSH EACH NEW DRUG INS 19956 [facility] NEW/RPLC 7 [facility] PRM INC INC PACEMAKER W/TRANSV ELTRD VENTR BASIC 88969 [facility] METABOLIC 7 [facility] PANEL INC INC CALCIUM TOTAL BLOOD 92165 [facility] COUNT 7 [facility] COMPLETE INC INC AUTO&AUTO DIFRNTL WBC PACEMAKER C1785 [facility] DUAL 7 [facility] CHAMBER INC INC RATE-RESP ONSIVE LEAD C1898 [facility] PACEMKR 7 [facility] OTH THAN INC INC TRNS VDD [facility] G0378 [facility] OBSERVATI 7 [facility] ON INC INC SERVICE PER HOUR ECG 79284 [facility] RIKI ROUTINE 7 PHYSICIAN ECG S GROUP W/LEAST 12 LDS I&R ONLY RADIOLOGI 28323 [facility] C 7 [facility] EXAMINATI INC INC ON CHEST SINGLE VIEW FRONTAL ECG 57097 [facility] ROUTINE 7 [facility] ECG INC INC W/LEAST 12 LDS TRCG ONLY W/O I&R ANES 69610 [facility] PERMANENT 7 ANESTH OF THE TRANSVENO BLUE US PACEMAKER INSERTION CT THORAX 90782 [place] ZACH 7 MEDICAL W/CONTRAS IMAGING T ASS MATERIAL CREATININ 55538 [facility] E BLOOD 7 [place] [address] [facility] UREA 7 [facility] NITROGEN INC INC QUANTITAT RIGO COLLECTIO 24038 [facility] N VENOUS 7 [facility] BLOOD INC INC VENIPUNCT URE LOCM Q9967 [facility] [phone] [facility] MG/ML INC INC IODINE CONCENTRA TION PER ML ECG 68551 [facility] RIKI ROUTINE 7 PHYSICIAN ECG S GROUP W/LEAST 12 LDS I&R ONLY ECG 44486 [facility] ROUTINE 7 [facility] ECG INC INC W/LEAST 12 LDS TRCG ONLY W/O I&R CV STRS 24897 [facility] TST 7 [facility] XERS&/OR INC INC RX CONT ECG TRCG ONLY INJECTION J2785 [facility] 7 [facility] REGADENOS INC INC ON 0.1 MG TECHNETIU A9502 [facility] Hernandez TC-99M 7 [facility] TETROFOSM INC INC IN DX PER STUDY DOSE MYOCARDIA 14185 [facility] L SPECT 7 [facility] MULTIPLE INC INC STUDIES ECG 14147 [facility] ROUTINE 7 [facility] ECG INC INC W/LEAST 12 LDS TRCG ONLY W/O I&R ECG 44081 [facility] ROUTINE 7 [facility] ECG INC INC W/LEAST 12 LDS TRCG ONLY W/O I&R ECG 98418 [facility] RIKI ROUTINE 7 PHYSICIAN ECG S GROUP W/LEAST 12 LDS I&R ONLY XTRNL ECG 25926 [facility] & 48 HR 7 [facility] RECORDING INC INC ECHO 51276 [facility] TTHRC R-T 7 [facility] 2D INC INC W/WOM-MOD E COMPL SPEC&COLR D ECG 17814 [facility] ROUTINE 7 PHYSICIAN ECG S GROUP W/LEAST 12 LDS I&R ONLY ECG 71143 [facility] SALCIDO ROUTINE 7 [facility] ECG INC INC W/LEAST 12 LDS TRCG ONLY W/O I&R ECG 02359 [facility]CIDO ROUTINE 7 [facility] ECG INC INC W/LEAST 12 LDS TRCG ONLY W/O I&R RADIOLOGI 87338 [facility] C EXAM 7 [facility] CHEST 2 INC INC VIEWS FRONTAL&L ATERAL ECG 54678 [facility] GUEVARA JR ROUTINE 7 [facility] W/LEAST P 12 LDS I&R ONLY RADEX 89156 [facility]INE 7 MEDICAL CERVICAL IMAGING 4 OR 5 ASS VIEWS BLOOD 35658 [facility] SALCIDO COUNT 7 [facility] COMPLETE INC INC AUTO&AUTO DIFRNTL WBC BASIC 91043 [facility] METABOLIC 7 [facility] PANEL INC INC CALCIUM TOTAL CT PELVIS 83901 [facility] SALC[facility]O W/O 7 [facility] CONTRAST INC INC MATERIAL CT LOWER 07594 [place] [facility] EXTREMITY 7 MEDICAL W/O IMAGING CONTRAST ASS MATERIAL INJECTION J1100 ISMAEL GUEVARA JR 7 DEXAMETHO SONE SODIUM PHOSPHATE 1 MG COMPRE 64382 [place] E[facility] SIEM[facility] AUDIOMETR 6 NOSE AND CLARY Y THROAT THRESHOLD EVAL SP RECOGNIJ TYMPANOME 84311 [place] [facility] TRY 6 NOSE AND CLARY THROAT BASIC 16418 COMBINED COMBINED METABOLIC 6 PHYSICIAN PHYSICIAN PANEL S LA S LA CALCIUM TOTAL BLOOD 97278 COMBINED COMBINED COUNT 6 PHYSICIAN PHYSICIAN COMPLETE S LA S LA AUTO&AUTO DIFRNTL WBC SMR PRIM 50974 [facility] SRC 6 [facility] GRAM/GIEM INC INC SA STAIN BCT FUNGI/YAMILKA L ARTHROCEN 51484 [facility] TESIS 6 MEDICAL LATRELL ASPIR&/IN IMAGING J MAJOR ASS JT/BURSA W/US BIOPSY 05766 [facility] SOFT 6 [facility] TISSUE INC INC PELVIS&HI P AREA SUPERFICI AL CUL BACT 62340 [facility] SALC[facility]O XCPT 6 [facility] URINE INC INC BLOOD/STO OL AEROBIC ISOL CELL 26753 [facility] SALCIOD COUNT 6 [facility] MISC BODY INC INC FLUIDS W/DIFFERE NTIAL COUNT CYTP EVAL 68519 [facility] SALCIDO FINE 6 [facility] NEEDLE INC INC ASPIRATE INTERP & [place] [address] [facility] SALC[facility]O SURG 6 [facility] PATHOLOGY INC INC GROSS&[place] [address] O[facility] SALCIDO EXTREMITY 6 [facility] NON-VASC [place] [address] [facility] SALCIDO GUIDANCE 6 [facility] NEEDLE INC INC PLACEMENT IMG S&I RADEX HIP 23699 [place] [facility] ALL 6 MEDICAL [place] IMAGING L WITH ASS PELVIS [address] [facility] SERVICE 6 AMBULANCE AMBULANCE BLS SERVICE [facility] GROUND A0425 [facility] MILEAGE 6 AMBULANCE AMBULANCE PER SERVICE SERVICE STATUTE MILE RADIOLOGI 39086 [place] ZACH C 6 MEDICAL LATRELL EXAMINATI IMAGING ON CHEST ASS SINGLE VIEW FRONTAL RADIOLOGI 73690 [place] ABHILASH C 6 MEDICAL ANGELIKA EXAMINATI IMAGING ON CHEST ASS SINGLE VIEW FRONTAL RADEX HIP 39669 [facility] 6 MEDICAL ANGELIKA UNILATERA IMAGING L WITH ASS PELVIS 2-[address] [facility] PETTEY FX PROX 6 PHYSICIAN JAM END NCK S GROUP INT FIXJ/PROS TC RPLCMT ECG 14428 [facility] ROGER ROUTINE 6 [facility] W/LEAST P 12 LDS I&R ONLY RADIOLOGI 69309 [facility] C 6 MEDICAL ANGELIKA EXAMINATI IMAGING ON FEMUR ASS MINIMUM 2 VIEWS GROUND A0425 [facility] MILEAGE 6 AMBULANCE AMBULANCE PER SERVICE SERVICE STATUTE MILE REPLACEME [id number] [facility] NT LT HIP 6 [facility] JOINT INC INC CERAMIC POLY SYNTH OPEN AMB A0427 [facility] SERVICE 6 AMBULANCE AMBULANCE ALS SERVICE SERVICE EMERGENCY TRANSPORT LEVEL 1 ANESTHESI 49369 [facility] OPEN 6 ANESTH RAMO PROCEDURE OF THE S UPPER BLUE 2/3 FEMUR NOS RADIOLOGI 50625 [facility] C 6 MEDICAL EXAMINATI IMAGING ON CHEST ASS SINGLE VIEW FRONTAL ANES 81558 [facility] LOWER 6 ANESTH SHE INTESTINE OF THE BLUE ENDOSCOPY DISTAL DUODENUM INJECTION J1100 ISMAEL GUEVARA JR 6 [place] DWI DEXAMETHO SONE SOD[place] [address] [place] [address] [facility] ABDOMEN & 6 MEDICAL PELVIS IMAGING W/O ASS CONTRAST MATERIAL URNLS DIP 90915 ISMAEL GUEVARA JR 6 [place]I STICK/TAB LET RGNT NON-AUTO W/O MICRSCP INJECTION J1030 ISMAEL ISMAEL JR 6 [place] DWI METHYLPRE DNISOLONE ACETATE 40 MG RADIOLOGI 25086 [facility] C EXAM 6 MEDICAL ANGELIKA CHEST 2 IMAGING VIEWS ASS FRONTAL&L ATERAL BASIC 65774 [facility] METABOLIC 6 [facility] PANEL INC INC CALCIUM TOTAL COLLECTIO 02603 [facility] N VENOUS 6 [facility] BLOOD INC INC VENIPUNCT URE BLOOD 52950 [facility] COUNT 6 [facility] COMPLETE INC INC AUTO&AUTO DIFRNTL WBC BLOOD 23951 COMBINED COMBINED COUNT 5 PHYSICIAN PHYSICIAN COMPLETE S LA S LA AUTO&AUTO DIFRNTL WBC BASIC 87150 COMBINED COMBINED METABOLIC 5 PHYSICIAN PHYSICIAN PANEL S LA S LA CALCIUM TOTAL CYANOCOBA 83213 COMBINED COMBINED JEWEL 5 PHYSICIAN PHYSICIAN VITAMIN S LA S LA B-12 INFLUENZA Q2038 ISMAEL GUEVARA JR VACC 5 [place] DWI SPLIT VIRUS 3 YRS & > IM FLUZONE ADMINISTR G0008 ISMAEL GUEVARA JR ATION OF 5 [place] DWI INFLUENZA VIRUS VACCINE URNLS DIP 69325 ISMAEL GUEVARA JR 5 [place]I STICK/TAB LET RGNT NON-AUTO W/O MICRSCP RADEX HIP 13130 [facility] 5 MEDICAL [place] IMAGING L 1 VIEW ASS RADEX HIP 71211 [facility] SAL[facility]IDO 5 [facility] UNILATERA INC INC L COMPLETE MINIMUM 2 VIEWS BASIC 07147 [facility] SALCIDO METABOLIC 5 [facility] PANEL INC INC CALCIUM TOTAL COLLECTIO 46067 [facility] SAL[facility] N VENOUS 5 [facility] BLOOD INC INC VENIPUNCT URE BLOOD 15069 [facility]O COUNT 5 [facility] COMPLETE INC INC AUTO&AUTO DIFRNTL WBC GROUND A0425 NARINDER NARINDER MILEAGE 5 CO CO PER AMBULANCE AMBULANCE STATUTE TAXIN TAXIN MILE AMB A0427 NARINDER NARINDER SERVICE 5 CO CO ALS AMBULANCE AMBULANCE EMERGENCY TAXIN TAXIN TRANSPORT LEVEL 1 COLLECTIO 67957 ISMAEL GUEVARA JR N VENOUS 5 [place] DWI BLOOD VENIPUNCT URE BASIC 38559 COMBINED COMBINED METABOLIC 5 PHYSICIAN PHYSICIAN PANEL S LA S LA CALCIUM TOTAL BLOOD 43698 COMBINED COMBINED COUNT 5 PHYSICIAN PHYSICIAN COMPLETE S LA S LA AUTO&AUTO DIFRNTL WBC OBSERVATI 70771 ISMAEL GUEVARA JR ON CARE 5 [place] DWI DISCHARGE MANAGEMEN T DUP-SCAN 60114 [place] [facility] ALL XTR VEINS 5 MEDICAL IMAGING UN[place]ATERA ASS L/LIMITED STUDY SBSQ 96210 ISMAEL GUEVARA JR OBSERVATI 5 [place] DWI ON CARE/DAY 25 MINUTES INITIAL 12229 ISMAEL GUEVARA JR OBSERVATI 5 [place] DWI ON CARE/DAY 50 MINUTES RADIOLOGI 18506 [facility] ALL C EXAM 5 MEDICAL CHEST 2 IMAGING VIEWS ASS FRONTAL&[place] [address] [facility] ALL HEAD/BRAI 5 MEDICAL N W/O IMAGING CONTRAST ASS MATERIAL URNLS DIP 00173 COMBINED COMBINED 5 PHYSICIAN PHYSICIAN STICK/TAB S LA S LA LET REAGENT AUTO MICROSCOP Y INJECTION J1335 [facility] 5 [facility] ERTAPENEM INC INC SODIUM 500 MG THERAPEUT 71343 [facility] IC 5 [facility] PROPHYLAC INC INC TIC/DX INJECTION SUBQ/IM INJECTION J1100 ISMAEL ISMAEL JR 5 [place] DWI DEXAMETHO SONE SODIUM PHOSPHATE 1 MG URNLS DIP 87139 ISMAEL GUEVARA JR 5 [place] DWI STICK/TAB LET RGNT NON-AUTO W/O MICRSCP SUSCEPTIB 57707 [facility] LTY STDY 5 [facility] ANTIMICRB INC INC IAL MICRO/AGA R DILUTJ CULTURE 69461 [facility] BACTERIAL 5 [facility] INC INC QUANTTATI VE COLONY COUNT URINE CULTURE 60254 [facility] BCT 5 [facility] ISOL&PRSM INC INC PTV ID ISOLATE EA URINE BLOOD 69734 [facility] COUNT 5 [facility] HEMATOCRI INC INC T BASIC 19603 [facility] METABOLIC 5 [facility] PANEL INC INC CALCIUM TOTAL IADNA-DNA 09859 [facility] /RNA GI 5 [facility] PTHGN INC INC MULTIPLEX PROBE TQ 11-[place] [address] [facility] ABDOMEN & 5 MEDICAL LATRELL PELVIS IMAGING W/O ASS CONTRAST MATERIAL CREATININ 08255 [facility] E BLOOD 5 [place] [address] [facility] SAL[facility]IDO UREA 5 [facility] NITROGEN INC INC QUANTITAT RIGO COLLECTIO 89552 O[facility] SAL[facility] N VENOUS 5 [facility] BLOOD INC INC VENIPUNCT URE CULTURE 60801 [facility] SALC[facility] BACTERIAL 5 [facility] INC INC [place]TT[place] [address] [facility] SURG 5 EMMA & [facility]TE[facility] PATHOLOGY DUBILIER GROSS&SAJAN ROSCOPIC EXAM SPECIAL 54538 [facility] STAIN 5 EMMA & [facility] GROUP 1 DUBILIER MICROORGA NISMS I&R EGD 88607 GNOSTICISM GNOSTICISM TRANSORAL 5 PHYS SURG PHYS SURG BIOPSY CTR CTR SINGLE/MU LTIPLE ANES 01954 [facility] UPPER GI 5 [facility] ENDOSCOPY ANESTHESI PROXIMAL A TO DUODENUM OPHTH 31149 [place] [facility] MEDICAL 5 EYE [facility] XM&EVAL INSTITUTE COMPRHNSV ESTAB PT 1/> FUNDUS 74668 [place] [facility] PHOTOGRAP 5 EYE [facility] W/INTERPR ETATION & REPORT DETERMINA 66768 [place] [facility] TION 5 EYE [facility] E STATE URNLS DIP 15764 ISMAEL GUEVARA JR 5 [place] DWI STICK/TAB LET RGNT NON-AUTO W/O MICRSCP SUSCEPTIB 32824 [facility] LTY STDY 5 [facility] ANTIMICRB INC INC IAL MICRO/AGA R DILUTJ CULTURE 93414 [facility] BCT 5 [facility] ISOL&PRSM INC INC PTV ID ISOLATE EA URINE CULTURE 14100 [facility] BACTERIAL 5 [facility] INC INC QUANTTATI VE COLONY COUNT URINE INJECTION J1040 ISMAEL GUEVARA JR 5 [place] DWI METHYLPRE DNISOLONE ACETATE 80 MG THERAPEUT 69858 ISMAEL GUEVARA JR IC 5 [place] DWI PROPHYLAC TIC/DX INJECTION SUBQ/IM THER 10408 [facility] SALCIDO PROPH/DX 5 [facility] NJX IV INC INC PUSH SINGLE/1S T SBST/DRUG INJECTION J2405 [facility]O 5 [facility] ONDANSETR INC INC ON HCL PER 1 MG COMPREHEN 24062 [facility] SAL[facility]ID[facility] SIVE 5 [facility] METABOLIC INC INC PANEL RADIOLOGI 46818 [place] [facility] C 5 MEDICAL LATRELL EXAMINATI IMAGING ON CHEST ASS SINGLE VIEW FRONTAL URNLS DIP 40440 [facility] SALCIOD 5 [facility] STICK/TAB INC INC LET REAGENT AUTO MICROSCOP Y CULTURE 76393 [facility] CALLEON BACTERIAL 5 [facility] BLOOD INC INC AEROBIC W/ID ISOLATES IAADI 25168 O[facility]I OMARI INFLUENZA 5 [facility] B VIRUS INC INC IAADI 11171 [facility] INFFLUENZ 5 [facility] A A VIRUS INC INC BLOOD 93838 [facility]IDO COUNT 5 [facility] COMPLETE INC INC AUTO&AUTO DIFRNTL WBC CULTURE 59496 [facility] BACTERIAL [facility] INC INC QUANTTATI VE COLONY COUNT URINE URNLS DIP 95988 ISMAEL GUEVARA JR 5 [place] DWI STICK/TAB LET RGNT NON-AUTO W/O MICRSCP THERAPEUT 91447 ISMAEL GUEVARA JR IC 4 [place] DWI PROPHYLAC TIC/DX INJECTION SUBQ/IM INJECTION J1100 ISMAEL GUEVARA 4 [place] Y[place]JANA DEXAMETHO SONE SODIUM PHOSPHATE 1 MG THERAPEUT 46960 ISMAEL GUEVARA JR IC 4 [place] DWI PROPHYLAC TIC/DX INJECTION SUBQ/IM INJECTION J1030 ISMAEL GUEVARA JR 4 [place] DWI METHYLPRE DNISOLONE ACETATE 40 MG ECHO 54262 O[facility] SALCIDO TTHRC R-T 4 [facility] 2D INC INC W/WOM-MOD E COMPL SPEC&COLR D URNLS DIP 15171 ISMAEL GUEVARA JR 4 [place] DW[place] STICK/TAB LET RGNT NON-AUTO W/O MICRSCP THERAPEUT 55165 ISMAEL GUEVARA JR IC 4 [place] DWI PROPHYLAC TIC/DX INJECTION SUBQ/IM INJECTION J1100 ISMAEL GUEVARA JR 4 [place] DWI DEXAMETHO SONE SODIUM PHOSPHATE 1 MG INJECTION J2785 [facility]O [facility] REGADENOS INC INC ON 0.1 MG CV STRS 63425 O[facility] SALCIDO TST 4 [facility] XERS&/OR INC INC RX CONT ECG TRCG ONLY CV STRS 50455 OMARI GUEVARA JR TST 4 [facility] XERS&/OR HOSPITAL RX CONT P ECG I&R ONLY TECHNETIU A9500 O[facility]I Hernandez TC-99M 4 [facility] SESTAMIBI INC INC DX PER STUDY DOSE MYOCARDIA 12537 O[facility] SALCIDO L SPECT 4 [facility] [place] [address] O[facility] SALCIDO TROPONIN 4 [facility] QUANTITAT INC INC RIGO BLOOD 05894 [facility] SAL[facility]IDO COUNT 4 [facility] COMPLETE INC INC AUTO&AUTO DIFRNTL WBC CREATINE 11802 O[facility]I SALCIDO KINASE MB 4 [facility] [place] [place] [address] [facility]I SALCIDO THYROID 4 [facility] STIMULATI INC INC NG HORMONE TSH COMPREHEN 04192 O[facility] SALCIDO SIVE 4 [facility] METABOLIC INC INC PANEL ECG 20862 O[facility] SALCIDO ROUTINE 4 [facility] ECG INC INC W/LEAST 12 LDS TRCG ONLY W/O I&R RADIOLOGI 87394 [place] [facility] [place] 4 MEDICAL LATRELL EXAMINATI IMAGING ON CHEST ASS SINGLE VIEW FRONTAL CREATINE 43126 OMARI SALCIDO KINASE 4 [facility] TOTAL INC INC ECG 75750 OMARI GUEVARA JR ROUTINE 4 [facility] W/LEAST P 12 LDS I&R ONLY ARTHROCEN 46696 ISMAEL HAASIS 4 [place] YOJANA ASPIR&/IN J INTERM JT/BURS W/O US INFLUENZA Q2038 ISMAEL GUEVARA JR VACC 4 [place] DWI SPLIT VIRUS 3 YRS & > IM FLUZONE INJECTION J1040 ISMAEL GUEVARA JR 4 [place] DWI METHYLPRE DNISOLONE ACETATE [address] [facility]OULD[facility] 4 JESSE [place]OL[place] COMPLETE PARTHA PARTHA MINIMUM [address] IC 4 JESSE [place]OL[place] PROPHYLAC PARTHA PARTHA TIC/DX INJECTION SUBQ/IM INJECTION J11[address] [facility] [facility] 4 JESSE [place] HYDROMORP PARTHA PARTHA ASAEL UP TO [address] 4 JESSE [place]OL[place] ONDANSETR PARTHA PARTHA ON HCL PER 1 MG COLLECTIO 47919 ISMAEL GUEVARA JR N VENOUS 4 [place] DWI BLOOD VENIPUNCT URE BASIC 24539 COMBINED COMBINED METABOLIC 4 PHYSICIAN PHYSICIAN PANEL S LA S LA CALCIUM TOTAL BASIC 67175 OMARI SALCIDO METABOLIC 4 [facility] PANEL INC INC CALCIUM TOTAL COLLECTIO 05432 ISMAEL GUEVARA JR N VENOUS 4 [place] DWI BLOOD VENIPUNCT URE BLOOD 10335 O[facility]I SALCIDO COUNT 4 [facility] COMPLETE INC INC AUTO&AUTO DIFRNTL WBC URNLS DIP 64166 ISMAEL GUEVARA JR 4 [place] DWI STICK/TAB LET RGNT NON-AUTO W/O MICRSCP CREATINE 67308 OMARI SALCIDO KINASE 4 [facility] TOTAL INC INC URNLS DIP 73054 ISMAEL ISMAEL JR 4 [place] DWI STICK/TAB LET RGNT NON-AUTO W/O MICRSCP RADEX 67446 OMARI SALCIDO SPINE 4 [facility] LUMBOSACR INC INC AL MINIMUM 4 VIEWS THERAPEUT 79734 ISMAEL GUEVARA JR IC 4 [place] DWI PROPHYLAC TIC/DX INJECTION SUBQ/IM URNLS DIP 52157 ISMAEL GUEVARA JR 4 [place] DWI STICK/TAB LET RGNT NON-AUTO W/O MICRSCP INJECTION J1040 ISMAEL GUEVARA JR 4 [place] DWI METHYLPRE DNISOLONE ACETATE 80 MG CULTURE 54681 O[facility] SALCIDO BACTERIAL 4 [facility] INC INC QUANTTATI VE COLONY COUNT URINE COLLECTIO 43965 ISMAEL GUEVARA JR N VENOUS 4 [place] DWI BLOOD VENIPUNCT URE BASIC 65713 COMBINED COMBINED METABOLIC 4 PHYSICIAN PHYSICIAN PANEL S LA S LA CALCIUM TOTAL BLOOD 69994 COMBINED COMBINED COUNT 4 PHYSICIAN PHYSICIAN COMPLETE S LA S LA AUTO&AUTO DIFRNTL WBC OBSERVATI 41039 ISMAEL GUEVARA JR ON CARE 4 YOJANA DWI DISCHARGE MANAGEMEN T SBSQ 94121 ISMAEL GUEVARA JR OBSERVATI 4 [place]OJANA DWI ON CARE/DAY 25 MINUTES ECG 15364 OMARI GUEVARA JR ROUTINE 4 [facility] W/LEAST P 12 LDS I&R ONLY ECG 77107 [facility] R[facility] 4 MORGAN ECG EMERGENCY W/LEAST PHYS 12 LDS I&R ONLY ECHO 66965 MERRY MICHELLE TTHRC R-T 4 MEDICAL EMELI 2D SERV W/WOM-MOD FOUNDATIO E COMPL SPEC&COLR D AMB A0427 [facility] SERVICE 4 AMBULANCE AMBULANCE ALS SERVICE SERVICE EMERGENCY TRANSPORT LEVEL 1 INITIAL 82660 ISMAEL GUEVARA JR OBSERVATI 4 [place] DWI ON CARE/DAY [address] [facility] MILEAGE 4 AMBULANCE AMBULANCE PER SERVICE SERVICE STATUTE MILE URNLS DIP 66843 ISMAEL GUEVARA JR 4 YOJANA DWI STICK/TAB LET RGNT NON-AUTO W/O MICRSCP ECG 97854 OMARI GUEVARA JR ROUTINE 4 [facility] W/LEAST P 12 LDS I&R ONLY CREATINE 92220 OMARI SALCIDO KINASE 4 [facility] TOTAL INC INC ECG 20968 OMARI SALCIDO ROUTINE 4 [facility] ECG INC INC W/LEAST 12 LDS TRCG ONLY W/O I&R RADEX 36109 [place] [facility] FOOT 4 [facility] COMPLETE IMAGING MINIMUM 3 ASS VIEWS RADIOLOGI 28845 [place] [facility] C EXAM 4 [facility] CHEST 2 IMAGING VIEWS ASS FRONTAL&L ATERAL TECHNETIU A9540 OMARI Hernandez TC-99M 4 [facility] MAA DX INC INC STDY DOSE UP TO 10 [facility] PULMONARY 09789 [place] ZACH 4 [facility] VENTILATI IMAGING ON & [place] [address] OMARI SALCIDO TROPONIN 4 [facility] QUANTITAT INC INC RIGO COLLECTIO 17304 OMARI SALCIDO N VENOUS 4 [facility] BLOOD INC INC VENIPUNCT URE BASIC 34037 OMARI OMARI METABOLIC 4 [facility] PANEL INC INC CALCIUM TOTAL FIBRIN 06720 OMARI SALCIDO DGRADJ 4 [facility] PRODUCTS INC INC D-DIMER QUAL/SEMI NAYE CREATINE 93550 OMARI SALCIDO KINASE MB 4 [facility] FRACTION INC INC ONLY TECHNETIU A9567 OMARI SALCIDO M TC-99M 4 [facility] PENTETATE INC INC DX AEROSOL TO [address] [place] [address] OMARI SALCIDO LIPASE 4 [facility] INC INC URNLS DIP 23840 OMARI CALLEON 4 [facility] STICK/TAB INC INC LET REAGENT AUTO MICROSCOP Y BLOOD 44499 OMARI SALCIDO COUNT 4 [facility] COMPLETE INC INC AUTO&AUTO DIFRNTL WBC RADIOLOGI 44115 [facility] EXAM 4 [facility] CHEST 2 IMAGING VIEWS ASS FRONTAL&L ATERAL COMPREHEN 78875 OMARI SALCIDO SIVE 4 [facility] METABOLIC INC INC PANEL IAADI 11332 OMARI SALCIDO INFLUENZA 4 [facility] B VIRUS INC INC IAADI 59108 OMARI SALCIDO INFFLUENZ 4 [facility] A A VIRUS INC INC URNLS DIP 55576 OMARI SALCIDO 4 [facility] STICK/TAB INC INC LET REAGENT AUTO MICROSCOP Y STANDARD K0001 MICHELLE MAXWELL 4 HOME HOME R MEDICAL MEDICAL EQUIPME EQUIPME STANDARD K0001 MICHELLE MAXWELL 4 HOME HOME R MEDICAL MEDICAL EQUIPME EQUIPME CULTURE 36317 OMARI SALCIDO BACTERIAL 4 [facility] INC INC QUANTTATI VE COLONY COUNT URINE STANDARD K0001 MICHELLE MAXWELL 3 HOME HOME R MEDICAL MEDICAL EQUIPME EQUIPME SEDIMENTA 93244 OMARI SALCIDO TION RATE 3 [facility] RBC INC INC NON-AUTOM ATED BLOOD 04453 OMARI SALCIDO COUNT 3 [facility] COMPLETE INC INC AUTO&AUTO DIFRNTL WBC STANDARD K0001 MICHELLE PIMENTELI 3 HOME HOME R MEDICAL MEDICAL EQUIPME EQUIPME STANDARD K0001 MICHELLE HERNANDEZCHAI 3 HOME HOME R MEDICAL MEDICAL EQUIPME EQUIPME STANDARD K0001 MICHELLE HERNANDEZCHAI 3 HOME HOME R MEDICAL MEDICAL EQUIPME EQUIPME THERAPEUT 09865 ISMAEL ISMAEL JR IC 3 YOJANA DWI PROPHYLAC TIC/DX INJECTION SUBQ/IM INJECTION J1100 ISMAEL GUEVARA JR 3 YOJANA DWI DEXAMETHO SONE SODIUM PHOSPHATE 1 MG URNLS DIP 37198 ISMAEL GUEVARA JR 3 [place]NA DWI STICK/TAB LET RGNT NON-AUTO W/O MICRSCP CULTURE 45079 OMARI SALCIDO BACTERIAL 3 [facility] INC INC QUANTTATI VE COLONY COUNT URINE STANDARD K0001 MICHELLE HERNANDEZCHAI 3 HOME HOME R MEDICAL MEDICAL EQUIPME EQUIPME OPHTH 64885 [place] CLA[facility] MEDICAL 3 EYE [facility] XM&EVAL INSTITUTE COMPRE NEW PT 1/> VST DETERMINA 34472 [place] TION 3 [facility] REFRACTIV INSTITUTE E STATE STANDARD K0001 MICHELLE PIMENTELI 3 HOME HOME R MEDICAL MEDICAL EQUIPME EQUIPME RADEX 45324 [facility] TRA SPINE 3 [place] THORACIC ORTHOPAED 2 VIEWS [facility] RADEX 28074 [facility] TRA SPINE 3 [place] CERVICAL ORTHOPAED 2 OR 3 [facility] VIEWS COMPREHEN 40159 [facility] SIVE 3 [facility] METABOLIC LABORATO LABORATO PANEL COLLECTIO 98917 [facility] [place] N VENOUS 3 [facility]INIC BLOOD LABORATO [place] [address] [facility] BLOOD/URI 3 [facility]IC [facility]IN[facility] C ACID LABORATO LABORATO BLOOD 05174 [facility] [place] COUNT 3 [facility] COMPLETE LABORATO LABORATO AUTO&AUTO DIFRNTL WBC LACTATE 81968 [facility] DEHYDROGE 3 CLINIC CLINIC NASE LDH LABORATO LABORATO STANDARD K0001 MICHELLE MARLOWRELL WHEELCHAI 3 HOME HOME R MEDICAL MEDICAL EQUIPME EQUIPME INJECTION J1040 TYESHA ARAMBULA 3 DON DON METHYLPRE DNISOLONE ACETATE 80 MG STANDARD K0001 MICHELLE PIMENTELI 3 HOME HOME R MEDICAL MEDICAL EQUIPME EQUIPME OPHTH 42912 [facility] 3 MEDICAL JR ORTEGA XM&EVAL SERV COMPRHNSV FOUNDATIO ESTAB PT 1/> STANDARD K0001 MICHELLE MAXWELL 3 HOME HOME R MEDICAL MEDICAL EQUIPME [facility] 34248 [facility] 3 EMERGENCY RAE IGN DAY SERVICES MANAGEMEN T 30 MIN/< SBSQ 45260 [facility] 3 EMERGENCY RAE IGN CARE/DAY SERVICES 25 MINUTES ANESTHESI 11754 [place] DALE A PERQ 3 ANESTHESI [place] IMAGE A GROUP GUIDED PS [place] MRI [address] [facility] [place] [facility] MAT SPINAL 3 RADIOLOGY CANAL THORACIC W/O CONTRAST MATRL MRI 68358 [facility] [place] MAT SPINAL 3 RADIOLOGY CANAL LUMBAR W/O CONTRAST MATERIAL RADIOLOGI 63765 [facility] [place] MAT C 3 RADIOLOGY EXAMINATI ON CHEST SINGLE VIEW FRONTAL INITIAL 77349 [facility] 3 N CARE/DAY CARDIOLOG 30 Y MINUTES INITIAL 18174 [facility] 3 EMERGENCY JANET CARE/DAY SERVICES [address] LUMBAR 66723 OMARI SALCIDO SPINE 3 [facility] W/O INC INC CONTRAST MATERIAL MRI 65524 [place] [facility] SPINAL 3 MEDICAL LATRELL CANAL IMAGING LUMBAR ASS W/O CONTRAST MATERIAL 3D 79175 [facility] 3 MEDICAL LATRELL IMAGING W/INTERP& ASS POSTPROC DIFF WORK STATION 3D 13126 OMARI SALCIDO RENDERING 3 [facility] INC INC W/INTERP& POSTPROC DIFF WORK STATION RADIOLOGI 07362 OMARI SALCIDO C 3 [facility] EXAMINATI INC INC ON CHEST SINGLE VIEW FRONTAL RADIOLOGI 17724 OMARI SALCIDO C 3 [facility] EXAMINATI INC INC ON PELVIS 1/[address] [place] [address] OMARI SALCIDO CERVICAL 3 [facility] SPINE W/O INC INC CONTRAST MATERIAL RADEX 27742 OMARI JESSICA [place] SPINE 3 [facility] LUMBOSACR [place] [address] [place] [address] OMARI OMARI HEAD/BRAI 3 [facility] N W/O INC INC CONTRAST MATERIAL 3D 73214 OMARI SALCIDO RENDERING 3 [facility] W/INTERP INC INC & POSTPROCE SS SUPERVISI ON THERAPEUT 09632 OMARI SALCIDO IC 3 [facility] PROPHYLAC INC INC TIC/DX INJECTION SUBQ/IM GROUND A0425 [facility] MILEAGE 3 AMBULANCE AMBULANCE PER SERVICE SERVICE STATUTE MILE AMBULANCE A0429 [facility] SERVICE 3 AMBULANCE AMBULANCE BLS SERVICE SERVICE EMERGENCY TRANSPORT INJECTION J1040 TYESHA ARAMBULA 3 DON DON METHYLPRE DNISOLONE ACETATE 80 MG STANDARD K0001 MICHELLE PIMENTELI 3 HOME HOME R MEDICAL MEDICAL EQUIPME EQUIPME COMPREHEN 35821 OMARI SALCIDO SIVE 3 [facility] METABOLIC INC INC PANEL URNLS DIP 28836 OMARI SALCIDO 3 [facility] STICK/TAB INC INC LET REAGENT AUTO MICROSCOP Y BLOOD 95461 OMARI SALCIDO COUNT 3 [facility] COMPLETE INC INC AUTO&AUTO DIFRNTL WBC COLLECTIO 37159 OMARI Lee VENOUS 3 [facility] BLOOD INC INC VENIPUNCT URE RADIOLOGI 53381 TYESHA Alcala 3 DON DON EXAMINATI ON KNEE 1/2 VIEWS STANDARD K0001 MICHELLE PIMENTELI 3 HOME HOME R MEDICAL MEDICAL EQUIPME EQUIPME URNLS DIP 65963 TYESHA ARAMBULA 3 DON DON STICK/TAB LET RGNT NON-AUTO W/O MICRSCP CULTURE 14432 OMARI SALCIDO BACTERIAL 3 [facility] INC INC QUANTTATI VE COLONY COUNT URINE CULTURE 27945 OMARI SALCIDO BCT 3 [facility] ISOL&PRSM INC INC PTV ID ISOLATE EA URINE SUSCEPTIB 66938 OMARI OMARI LTY STDY 3 [facility] ANTIMICRB INC INC IAL MICRO/AGA R DILUTJ OPHTH 97320 [facility] 3 MEDICAL JR ORTEGA XM&EVAL SERV COMPRHNSV FOUNDATIO ESTAB PT 1/> CUL BACT 78661 OMARI SALCIDO XCPT 3 [facility] URINE INC INC BLOOD/[place] [address] OMARI SALCIDO INFUSION 3 [facility] THERAPY/P INC INC ROPHYLAXI S /DX 1ST TO 1 [place] [address] OMARI SALCIDO INFUSION 3 [facility] THERAPY/P INC INC ROPHYLAXI S /DX 1ST TO 1 [place] [address] OMARI SALCIDO INFUSION 3 [facility] THERAPY/P INC INC ROPHYLAXI S /DX 1ST TO 1 HR DRUG 72084 OMARI SALCIDO SCREEN 3 [facility] QUANTITAT INC INC RIGO GENTAMICI N DRUG 13479 OMARI SALCIDO SCREEN 3 [facility] QUANTITAT INC INC RIGO GENTAMICI N COLLECTIO 37921 OMARI SALCIDO N VENOUS 3 [facility] [place] [address] OMARI SALCIDO INFUSION 3 [facility] THERAPY/P INC INC ROPHYLAXI S /DX 1ST TO 1 HR COLLECTIO 14267 OMARI SALCIDO N VENOUS 3 [facility] BLOOD INC INC VENIPUNCT URE DRUG 93858 OMARI SALCIDO SCREEN 3 [facility] QUANTITAT INC INC RIGO GENTAMICI N DRUG 63029 OMARI SALCIDO SCREEN 3 [facility] QUANTITAT INC INC RIGO GENTAMICI N COLLECTIO 06394 OMARI SALCIDO N VENOUS 3 [facility] [place] [address] OMARI SALCIDO INFUSION 3 [facility] THERAPY/P INC INC ROPHYLAXI S /DX 1ST TO 1 HR CREATININ 31666 OMARI SALCIDO E BLOOD 3 [facility] INC INC BASIC 80378 OMARI SALCIDO METABOLIC 3 [facility] [place] [address] OMARI SALCIDO UREA 3 [facility] NITROGEN INC INC QUANTITAT RIGO INJECTION J0690 TYESHA ARAMBULA 3 DON DON CEFAZOLIN SODIUM 500 MG CUL BACT 38108 OMARI SALCIDO AEROBIC 3 [facility] ADDL INC INC METHS DEFINITIV E EA ISOL CUL BACT 67411 OMARI SALCIDO XCPT 3 [facility] URINE INC INC BLOOD/STO OL AEROBIC ISOL SUSCEPTIB 35364 OMARI SALCIDO LTY STDY 3 [facility] [...] SONE ACETATE & PHOSPHATE 3 MG REMOVAL 44319 TYESHA ARAMBULA IMPACTED 2 DON DON CERUMEN INSTRUMEN TATION UNILAT ECG 90460 TYESHA ARAMBULA ROUTINE 2 DON DON ECG W/LEAST 12 LDS W/I&R ECG 68418 TYESHA ARAMBULA ROUTINE 2 DON DON ECG W/LEAST 12 LDS W/I&R RADEX ABD 58043 TYESHA ARAMBULA COMPL 2 DON DON AQT ABD W/S/E/D VIEWS 1 VIEW URNLS DIP 29788 TYESHA ARAMBULA 2 DON DON STICK/TAB LET RGNT NON-AUTO W/O MICRSCP INJECTION J1040 TYESHA ARAMBULA 2 DON DON METHYLPRE DNISOLONE ACETATE 80 MG URNLS DIP 02526 OMARI SALCIDO 2 [facility] STICK/TAB INC INC [place] [address] OMARI SALCIDO TROPONIN 2 [facility] QUANTITAT INC INC RIGO NATRIURET 22823 OMARI SALCIDO IC 2 [facility] PEPTIDE INC INC BLOOD 61731 OMARI SALCIDO COUNT 2 [facility] COMPLETE INC INC AUTO&AUTO DIFRNTL WBC CREATINE 22209 OMARI SALCIDO KINASE MB 2 [facility] FRACTION INC INC ONLY ECG 79467 EMILY BOOTH ROUTINE 2 EMERGENCY SAJAN ECG SERVICES W/LEAST 12 LDS I&R ONLY CREATINE 44201 OMARI SALCIDO KINASE 2 [facility] TOTAL INC INC COMPREHEN 24518 OMARI SALCIDO SIVE 2 [facility] METABOLIC INC INC PANEL RADIOLOGI 22497 [facility]MARI SALCIDO C 2 [facility] EXAMINATI INC INC ON CHEST SINGLE VIEW FRONTAL ECG 24557 OMARI SALCIDO ROUTINE 2 [facility] ECG INC INC W/LEAST 12 LDS TRCG ONLY W/O I&R THER 34880 OMARI SALCIDO PROPH/DX 2 [facility] NJX IV INC INC PUSH SINGLE/1S T SBST/DRUG INJECTION J2405 OMARI SALCIDO 2 [facility] ONDANSETR INC INC ON HCL PER 1 MG COMPREHEN 65216 OMARI SALCIDO SIVE 2 [facility] METABOLIC INC INC PANEL COLLECTIO 76714 OMARI SALCIDO N VENOUS 2 [facility] BLOOD INC INC VENIPUNCT URE INJECTION J3420 TYESHA ARAMBULA VIT B-12 2 DON DON CYANOCOBA JEWEL TO 1000 MCG TYMPANOME 18414 TYESHA ARAMBULA TRY 2 DON DON INJECTION J1040 TYESHA ARAMBULA 2 DON DON METHYLPRE DNISOLONE ACETATE 80 MG LIPID 72559 OMARI SALCIDO PANEL 2 [facility] INC INC BLOOD 68206 OMARI SALCIDO COUNT 2 [facility] COMPLETE INC INC AUTO&AUTO DIFRNTL WBC COLLECTIO 81095 OMARI SALCIDO N VENOUS 2 [facility] [place] [address] OMARI SALCIDO THYROID 2 [facility] STIMULATI INC INC NG HORMONE TSH COMPREHEN 74892 OMARI SALCIDO SIVE 2 [facility] METABOLIC INC INC PANEL COMPUTERI 13842 MERRY GARTH ZED 2 MEDICAL [facility] OPHTHALMI SERV C IMAGING FOUNDATIO RETINA OPHTH 68312 MERRY GARTH MEDICAL 2 MEDICAL [place]TE[place] XM&EVAL SERV COMPRHNSV FOUNDATIO ESTAB PT 1/> [place] [address] OMARI SALCIDO TRANSVAGI 2 [facility] NAL INC INC US PELVIC 63277 [facility] ZACH 2 MEDICAL LATRELL NONOBSTET IMAGING ZOEY ASS REAL-TIME IMAGE COMPLETE INJECTION J1040 TYESHA ARAMBULA 2 DON DON METHYLPRE DNISOLONE ACETATE 80 MG URNLS DIP 91430 TYESHA ARAMBULA 2 DON DON STICK/TAB LET RGNT NON-AUTO W/O MICRSCP INJECTION J3420 TYESHA ARAMBULA VIT B-12 2 DON DON CYANOCOBA JEWEL TO 1000 MCG URNLS DIP 95096 TYESHA ARAMBULA 2 DON DON STICK/TAB LET [...] METHYLPRE DNISOLONE ACETATE 80 MG URNLS DIP 45734 TYESHA ARAMBULA 1 DON DON STICK/TAB LET RGNT NON-AUTO W/O MICRSCP INJECTION J3420 TYESHA ARAMBULA VIT B-12 1 DON DON CYANOCOBA JEWEL TO 1000 MCG URNLS DIP 60510 TYESHA ARZATES 1 DON DON STICK/TAB LET RGNT NON-AUTO W/O MICRSCP URNLS DIP 57917 TYESHA ARAMBULA 1 DON DON STICK/TAB LET RGNT NON-AUTO W/O MICRSCP CULTURE 23987 OMARI SALCIDO BACTERIAL 1 [facility] INC INC QUANTTATI VE COLONY COUNT URINE URNLS DIP 11129 TYESHA ARAMBULA 1 DON DON STICK/TAB LET RGNT NON-AUTO W/O MICRSCP URNLS DIP 10648 [place] [facility] [place] [facility] STICK/TAB CLINIC LET RGNT PSC NON-AUTO W/O MICRSCP URNLS DIP 32831 TYESHA ARAMBULA 1 DON DON STICK/TAB LET RGNT NON-AUTO W/O MICRSCP INJ J0702 TYESHA ARAMBULA BETAMETHA 1 DON DON SONE ACETATE & PHOSPHATE 3 MG INJECTION J3420 TYESHA ARAMBULA VIT B-12 1 DON DON CYANOCOBA JEWEL TO [address] THORAX 75660 [place] [facility] W/O 1 [facility] CONTRAST IMAGING MATERIAL ASS 3D 96313 [place] [facility] RENDERING 1 MEDICAL [facility] IMAGING W/INTERP& ASS POSTPROC DIFF WORK STATION CT THORAX 85475 OMARI SALCIDO 1 [facility] W/[place] [address] [place] [facility] ABDOMEN & 1 MEDICAL [facility] PELVIS IMAGING W/CONTRAS ASS T MATERIAL COMPREHEN 87728 [facility] SIVE 1 [facility] METABOLIC LABORATO LABORATO PANEL COLLECTIO 82948 [facility] N VENOUS 1 CLINIC CLINIC BLOOD LABORAT[place] [address] [facility] BLOOD/URI 1 [facility] C ACID LABORATO LABORATO LACTATE 31212 [facility] DEHYDROGE 1 CLINIC CLINIC NASE LDH [facility] B[facility] [address] [facility] COMPLETE LABORATO LABORATO AUTO&AUTO DIFRNTL WBC INJECTION J3420 TYESHA ARAMBULA VIT B-12 1 DON DON CYANOCOBA JEWEL TO 1000 MCG INJECTION J1040 TYESHA ARAMBULA 1 DON DON METHYLPRE DNISOLONE ACETATE 80 MG INJECTION J0690 TYESHA ARAMBULA 1 DON DON CEFAZOLIN SODIUM 500 MG URNLS DIP 56526 OMARI JEAN-BAPTISTE JR 1 [facility] STICK[facility] LET RGNT P NON-AUTO W/O MICRSCP INJECTION J1040 TYESHA ARAMBULA 1 DON DON METHYLPRE DNISOLONE ACETATE 80 MG LIPID 64259 OMARI SALCIDO PANEL 1 [facility] INC INC BLOOD 51542 OMARI SALCIDO COUNT 1 [facility] COMPLETE INC INC AUTO&AUTO DIFRNTL WBC COLLECTIO 44069 OMARI SALCIDO N VENOUS 1 [facility] [place] [address] OMARI SALCIDO THYROID 1 [facility] STIMULATI INC INC NG HORMONE TSH COMPREHEN 36980 OMARI SALCIDO SIVE 1 [facility] METABOLIC INC INC PANEL INJECTION J1040 TYESHA ARAMBULA 1 DON DON METHYLPRE DNISOLONE ACETATE 80 MG INJECTION J1040 TYESHA ARAMBULA 0 DON DON METHYLPRE DNISOLONE ACETATE [address] [facility] MILEAGE 0 AMBULANCE AMBULANCE PER SERVICE SERVICE STATUTE MILE AMBULANCE A0429 [facility] SERVICE 0 AMBULANCE AMBULANCE BLS SERVICE SERVICE EMERGENCY TRANSPORT SIMPLE 74926 OMARI SALCIDO RPR 0 [facility] SCALP/NEC INC INC K/AX/KIRSTIE T/TRUNK 7.6-12.5C [place] [address] OMARI SALCIDO CLOSTRIDI 0 [facility] UM INC INC DIFFICILE TOXIN URNLS DIP 37179 TYESHA ARAMBULA 0 DON DON STICK/TAB LET RGNT NON-AUTO W/O MICRSCP OPHTH 88334 [facility] MEDICAL 0 MEDICAL [place]TE[place] XM&EVAL SERV COMPRHNSV FOUNDATIO ESTAB PT 1/> ADMINISTR G0008 TYESHA ARAMBULA ATION OF 0 DON DON INFLUENZA VIRUS VACCINE IIV3 45428 TYESHA ARAMBULA VACCINE 0 DON DON SPLIT VIRUS 0.5 ML DOSAGE IM USE INJECTION J1040 TYESHA ARAMBULA 0 DON DON METHYLPRE DNISOLONE ACETATE 80 MG INJECTION J1040 TYESHA ARAMBULA 0 DON DON METHYLPRE DNISOLONE ACETATE 80 MG URNLS DIP 37589 TYESHA ARZATES 0 DON DON STICK/TAB LET RGNT NON-AUTO W/O MICRSCP INJECTION J3420 ARAMBULA ARAMBULA VIT B-12 0 DON DON CYANOCOBA JEWEL TO 1000 MCG URNLS DIP 21659 ARAMBULA ARAMBULA 0 DON DON STICK/TAB LET RGNT NON-AUTO W/O MICRSCP URNLS DIP 42206 TYESHA ARAMBULA, 0 DON R DON R STICK/TAB LET RGNT NON-AUTO W/O MICRSCP INJECTION J1040 TYESHA ARAMBULA, 0 DON R DON R METHYLPRE DNISOLONE ACETATE 80 MG THERAPEUT 06477 OMARI SALCIDO IC 0 [facility] PROPHYLAC INC INC TIC/DX INJECTION SUBQ/IM URNLS DIP 56201 TYESHA ARAMBULA, 0 DON R DON R STICK/TAB LET RGNT NON-AUTO W/O MICRSCP INJECTION J1040 TYESHA ARAMBULA, 0 DON R DON R METHYLPRE DNISOLONE ACETATE 80 MG LACTATE 03076 [facility] DEHYDROGE 0 [facility]INIC CLIN[facility] NASE LDH LABORATOR LABORATOR Y Y BLOOD 29749 [facility] COUNT 0 CLINIC CLIN[facility] COMPLETE LABORATOR LABORATOR AUTO&[place] [address] [facility] BLOOD/URI 0 CLINIC CLINIC C ACID LABORATOR LABORATOR Y Y COLLECTIO 43352 [facility] N VENOUS 0 CLINIC CLINIC BLOOD LABORATOR LABORATOR VENIPUNCT Y Y URE COMPREHEN 77181 [facility] SIVE 0 CLINIC CLINIC METABOLIC LABORATOR LABORATOR PANEL Y Y INJECTION J3420 TYESHA ARAMBULA VIT B-12 0 DON R DON R CYANOCOBA JEWEL TO 1000 MCG RADIOLOGI 15283 Fredrick LYNNE EXAM 0 MEDICAL DE[facility] CHEST 2 IMAGING VIEWS ASSOCIATE FRONTAL&L S ATERAL THERAPEUT 15086 OMARI SALCIDO IC 0 [facility] PROPHYLAC INC INC TIC/DX INJECTION SUBQ/IM INJECTION J1040 TYESHA ARAMBULA, 0 DON R DON R METHYLPRE DNISOLONE ACETATE 80 MG COLLECTIO 19478 OMARI SALCIDO N VENOUS 0 [facility] [place] [place] [address] OMARI SALCIDO UREA 0 [facility] NITROGEN INC INC QUANTITAT RIGO CREATININ 48291 OMARI SLACIDO E BLOOD 0 [facility] INC INC 3D 41274 LORAINE SERRANO, RENDERING 0 MEDICAL DEAN W/INTERP IMAGING & [place] [address] LORAINE SERRANO HEAD/BRAI 0 MEDICAL DEAN N W/O & IMAGING W/CONTRAS ASSOCIATE T S MATERIAL RADEX HIP 69055 OMARI SALCIDO 0 [facility] [place] INC INC L COMPLETE MINIMUM 2 VIEWS RADIOLOGI 99034 OMARI SALCIDO C 0 [facility] EXAMINATI INC INC ON PELVIS 1/2 VIEWS URNLS DIP 74526 TYESHA ARAMBULA, 0 DON R DON R STICK/TAB LET RGNT NON-AUTO W/O MICRSCP BLOOD 68160 TYESHA ARAMBULA OCCULT 0 DON R DON R PEROXIDAS E ACTV QUAL FECES 1 DETER INJ J0702 TYESHA ARAMBULA BETAMETHA 0 DON R DON R SONE ACETATE & PHOSPHATE 3 MG 3D 14298 LORAINE SERRANO, RENDERING 9 MEDICAL DEAN IMAGING W/INTERP& ASSOCIATE POSTPROC S DIFF WORK STATION CREATININ 12600 OMARI SALCIDO E BLOOD 9 [facility] [place] THORAX [address] [facility] W/CONTRAS [place]AGING [place] [address] OMARI SALCIDO UREA 9 [facility] NITROGEN INC INC QUANTITAT RIGO COLLECTIO 91984 OMARI SALCIDO N VENOUS 9 [facility] BLOOD INC INC VENIPUNCT URE SBSQ 60322 TYESHA ARAMBULA, NURSING 9 DON R DON R FACILITY CARE/DAY E/M STABLE 10 MIN HOSPITAL 99424 CARITO ARAMBULAS, DISCHARGE 9 DON R DON R DAY MANAGEMEN T 30 MIN/< SBSQ [address]4827 [place] [address] DON R DON R CARE/DAY 25 MINUTES SBSQ 200 34764 [place] [address] DON R DON R CARE/DAY 25 MINUTES SBSQ 61869 [place] [address] DON R DON R CARE/DAY 25 MINUTES RADIOLOGI 36672 [place] ZACH 9 MEDICAL DEAN EXAMINATI IMAGING ON CHEST ASSOCIATE SINGLE S VIEW FRONTAL SBSQ 09043 [place] [address] DON R DON R CARE/DAY 25 MINUTES SBSQ 200 01934 [place] [address] DON R DON R CARE/DAY 25 MINUTES ECG 47722 OMARI GUEVARA, VAZQUEZ 9 [facility] E ECG HOSPITAL W/LEAST PROF SERV 12 LDS I&R ONLY ANESTHESI 08733 [facility] Jacobo GAMINO OPEN 9 ANESTH JNE F [facility] ARTHROPLA ST RADEX HIP 85874 [place] Candie SERRANO MEDICAL DEAN UNILATERA IMAGING L 1 VIEW ASSOCIATE S SBSQ 17040 [place] [address] DON R DON R CARE/DAY 25 MINUTES DECALCIFI 07041 PATHOLOGY PATHOLOGY CATION 9 & & PROCEDURE [place] [address] PATHOLOGY PATHOLOGY SURG 9 & & PATHOLOGY CYTOLOGY CYTOLOGY LAB LAB GROSS&SAJAN ROSCOPIC EXAM PARTIAL 8152 OMARI SALCIDO HIP 9 [facility] REPLACEME INC INC NT HIP 0074 OMARI SALCIDO BEARING 9 [facility] SURFACE INC INC METAL-ON- POLYETHYL AYUSH GROUND A0425 [facility] PER SERVICE SERVICE STATUTE MILE INITIAL 23739 [facility] DON R DON R CARE/DAY [address] [facility] SERVICE 9 AMBULANCE AMBULANCE ALS SERVICE SERVICE EMERGENCY TRANSPORT LEVEL 1 RADEX HIP 02767 [place] Candie SERRANO MEDICAL DEAN [place] IMAGING L ASSOCIATE COMPLETE S MINIMUM 2 VIEWS ECG 90700 OMARI MAYDA ROUTINE 9 [facility] ER W/LEAST PROF SERV 12 LDS I&R ONLY RADIOLOGI 23463 [place] Fredrick SERRANO 9 MEDICAL DEAN EXAMINATI IMAGING ON CHEST ASSOCIATE SINGLE S VIEW FRONTAL RADIOLOGI 30066 [place] Fredrick SERRANO 9 MEDICAL DEAN EXAMINATI IMAGING ON PELVIS ASSOCIATE 1/2 S VIEWS OPHTH 13261 [facility] 9 MEDICAL MARTINE Randall SINGLETON&EVAL SERV INTERMEDI FOUNDATIO ATE ESTAB PT ADMINISTR G0008 TYESHA ARAMBULA, ATION OF 9 DON R DON R INFLUENZA VIRUS VACCINE PPSV23 60245 TYESHA ARAMBULA VACCINE 2 9 DON R DON R YRS OR OLDER FOR SUBQ/IM USE IIV3 76676 TYESHA ARAMBULA VACCINE 9 DON R DON R SPLIT VIRUS 0.5 ML DOSAGE IM USE ADMINISTR G0009 TYESHA ARAMBULA ATION OF DON R DON R PNEUMOCOC CECILIA VACCINE URNLS DIP 23824 TYESHA ARAMBULA 9 DON R DON R STICK/TAB LET RGNT NON-AUTO W/O MICRSCP URNLS DIP 76092 TYESHA ARAMBULA 9 DON R DON R STICK/TAB LET RGNT NON-AUTO W/O MICRSCP INJECTION [id number] TYESHA ARAMBULA VIT B-12 9 DON R DON R CYANOCOBA JEWEL TO 1000 MCG RADEX 81138 OMARI SALCIDO WRIST 9 [facility] COMPLETE INC INC MINIMUM 3 VIEWS RADEX 58437 OMARI SALCIDO ANKLE 9 [facility] COMPLETE INC INC MINIMUM [address] PELVIS 91667 [place], 9 [facility] W/[place] [address] [place], ABDOMEN 9 [facility] W/CONTRAS IMAGING T ASSOCIATE MATERIAL S CT THORAX 43976 [place], 9 [facility] W/CONTRAS IMAGING T ASSOCIATE MATERIAL S 3D 25259 [place], RENDERING 9 [facility] P IMAGING W/INTERP& ASSOCIATE POSTPROC S DIFF WORK STATION COMPREHEN 01629 [facility] SIVE 9 [facility] METABOLIC LABORATOR LABORATOR PANEL Y Y BLOOD 17509 [facility] COUNT 9 [facility] COMPLETE LABORATOR LABORATOR AUTO&AUTO Y Y DIFRNTL WBC COLLECTIO 62216 [facility] N VENOUS 9 [facility] BLOOD LABORATOR LABORATOR VENIPUNCT Y Y URE INJECTION J1040 TYESHA ARAMBULA, Candie DON R DON R METHYLPRE DNISOLONE ACETATE 80 MG INJECTION J3420 TYESHA ARAMBULA VIT B-12 9 DON R DON R CYANOCOBA JEWEL TO 1000 MCG COMPREHEN 63329 [facility] SIVE 9 [facility] METABOLIC LABORATOR LABORATOR PANEL Y Y BLOOD 84523 [facility] COUNT 9 [facility] COMPLETE LABORATOR LABORATOR AUTO&AUTO Y Y DIFRNTL WBC LACTATE 50610 [facility] DEHYDROGE 9 [facility] NASE [place] [address] [facility] GAMMAGLOB 9 [facility] ULIN IGA LABORATOR LABORATOR IGD IGG Y Y IGM EACH COLLECTIO 27593 [facility] N VENOUS 9 [facility] BLOOD LABORATOR [place] [address] [facility] BLOOD/URI 9 CLINIC CLINIC C ACID LABORATOR LABORATOR Y Y TECHNETIU A9502 OMARI Hernandez TC-99M 9 [facility] TETROFOSM INC INC IN DX PER STUDY DOSE MYOCRD 00057 OMARI OMARI PRFUJ STD 9 [facility] EJEC FXJ INC INC MYOCRD 93799 OMARI OMARI PRFUJ IMG 9 [facility] TOMOG INC INC SPECT [employer] PRINCIPAL STD CV STRS 52252 OMARI ROGER, TST 9 [facility] XERS&/OR HOSPITAL RX CONT PROF SERV ECG I&R ONLY CV STRS 09238 OMARI ROGER, TST 9 [facility] XERS&/OR HOSPITAL RX CONT PROF SERV ECG W/O I&R CV STRS 41827 OMARI SALCIDO TST 9 [facility] XERS&/OR INC INC RX CONT ECG TRCG ONLY MYOCRD 00705 OMARI SALCIDO PRFUJ STD 9 [facility] WALL INC INC MOTION QUAL/NAYE STD INJECTION J0152 OMARI SALCIDO 9 [facility] ADENOSINE INC INC DIAGNOSTI C USE 30 MG ECG 54200 TYESHA ARAMBULA, VAZQUEZ 9 DON R DON R ECG W/LEAST 12 LDS W/I&R RADIOLOGI 92850 TYESHA ARAMBULA C 9 DON R DON R EXAMINATI ON CHEST SINGLE VIEW FRONTAL RADIOLOGI 09713 TYESHA ARAMBULA C EXAM 9 DON R DON R PELVIS COMPL MINIMUM 3 VIEWS RADEX HIP 80883 TYESHA ARAMBULA 9 DON R DON R UNILATERA L COMPLETE MINIMUM 2 VIEWS INJECTION J1040 TYESHA ARAMBULA 9 DON R DON R METHYLPRE DNISOLONE ACETATE 80 MG INJECTION J1040 TYESHA ARAMBULA 8 DON R DON R METHYLPRE DNISOLONE ACETATE 80 MG LACTATE 38946 [facility] DEHYDROGE 8 CLINIC CLINIC NASE LDH LABORATOR LABORATOR Y Y BLOOD 79739 [facility] COUNT 8 [facility] COMPLETE LABORATOR LABORATOR AUTO&[place] [address] [facility] BLOOD/URI 8 [facility] C ACID LABORATOR LABORATOR Y Y COLLECTIO 55435 [facility] N VENOUS 8 [facility] BLOOD LABORATOR LABORATOR VENIPUNCT Y Y URE COMPREHEN 35218 [facility] SIVE 8 [facility] METABOLIC LABORATOR LABORATOR PANEL Y Y INJECTION J1040 TYESHA ARAMBULA, Roberta DON R DON R METHYLPRE DNISOLONE ACETATE 80 MG OPHTH [address]&EVAL SERV COMPRHNSV FOUNDATIO ESTAB PT 1/> ADMINISTR G0008 TYESHA ARAMBULA, ATION OF 8 DON R DON R INFLUENZA VIRUS VACCINE URNLS DIP 94564 TYESHA ARAMBULA 8 DON R DON R STICK/TAB LET RGNT NON-AUTO W/O MICRSCP IIV3 14374 TYESHA ARAMBULA, VACCINE 8 DON R DON R SPLIT VIRUS 0.5 ML DOSAGE IM USE THER 77174 [facility] PROPH/DX [address] [place] [address] NJX IV PUSH 1ST SBST/DRUG BLOOD [address] COMPLETE AUTOMATED HEPATIC 75677 [facility] FUNCTION [address] [place] [address] PANEL SODIUM 81041 [facility] SERUM [address] [place] [address] [place] B[place] [address] [facility] TROPONIN [address] [place] [address] QUANTITAT RIGO NATRIURET 71021 [facility] IC [address] [place] [address] PEPTIDE BLOOD 19750 [facility] GASES ANY [address] [place] [address] COMBINATI ON PH PCO2 PO2 CO2 HCO3 GLUCOSE [address] RIGO BLOOD XCPT REAGENT STRIP URNLS DIP [address] STICK/TAB [place] [address] [facility] UREA [address] [place] [address] [place] [address] [facility] LIPASE [address] [place] [address] POTASSIUM 14400 [facility] SERUM [address] [place] [address] PLASMA/WH OLE BLOOD IV NFUS 16218 [facility] HYDRATION [address] [place] [address] EA HR CHLORIDE 22612 [facility] BLD [address] [place] [address] ECG 11017 EMERGENCY ACKERMAN, ROUTINE 8 PHYS CARL W ECG [place] W/LEAST 12 LDS I&R ONLY INJECTION J24[address] ONDANSETR ON HCL PER 1 MG RADIOLOGI 95142 [facility] C EXAM [address] [place] [address] CHEST 2 VIEWS FRONTAL&L ATERAL ECG 57755 [facility] ROUTINE [address] [place] [address] ECG W/LEAST 12 LDS TRCG ONLY W/O I&R RADEX 96187 OMARI SALCIDO SPINE 8 [facility] MINIMUM 4 VIEWS RADIOLOGI 66362 TYESHA ARAMBULA C EXAM 8 DON R [...] Type Date CRITICAL . ACCESS 7 7 [facility] OMARI - OUMOU 7 7 [facility] OMARI - OUMOU 7 7 [facility] OMARI - 7 7 [facility] OUTPATIEN INC T [facility] - 7 7 [facility]PATI[facility] INC T OFFICE [facility]35 [facility] RIKI OUTPATIEN 7 7 PHYSICIAN T VISIT S GROUP [address] [facility] RIKI OUTPATIEN 7 7 PHYSICIAN T VISIT S GROUP 25 MINUTES [facility]OSPITAL [facility] - 7 7 [facility]PATIEN INC T [facility] - 7 7 [facility]PATIEN INC T OFFICE 01068 [facility] RIKI OUTPATIEN 7 7 PHYSICIAN T VISIT S GROUP 40 MINUTES HOSPITAL [facility] - 7 7 [facility] OUTPATIEN INC T OFFICE 75656 MERRY ELAINE OUTPATIEN 7 7 MEDICAL T VISIT SERV 25 FOUNDATIO MINUTES [facility] OMARI - 7 7 [facility] OUTPATIEN INC T OFFICE 89029 [facility] RIKI OUTPATIEN 7 7 PHYSICIAN T VISIT S GROUP 40 MINUTES [facility]OSPITAL [facility] - 7 7 [facility] OUTPATIEN INC [facility] - 7 7 [facility] - 7 7 [facility] OUTPATIEN INC T OFFICE 22552 MERRY HENRY OUTPATIEN 7 7 MEDICAL T NEW 60 SERV MINUTES [facility] OFFICE 48876 [facility] RIKI OUTPATIEN 7 7 PHYSICIAN T VISIT S GROUP 15 MINUTES HOSPITAL [facility] - 7 7 [facility] OUTPATIEN INC [facility] - 7 7 [facility]PAT[facility]EN INC [facility] - 7 7 [facility]PATIEN INC T OFFICE 26078 [facility] RIKI OUTPATIEN 7 7 PHYSICIAN T NEW 60 S GROUP MINUTES [facility] - 7 7 [facility] OUTPATIEN INC T [facility] - [facility]UM[facility] 7 7 [facility] INC EMERGENCY 57026 [facility] 7 7 [facility] DEPARTMEN INC T VISIT LOW/MODER SEVERITY EMERGENCY 06391 [facility] MAK 7 7 PHYSICIAN DEPARTMEN S, PLLC T VISIT HIGH/URGE NT SEVERITY [facility]OSPITAL [facility] - 7 7 [facility] OUTPATIEN INC T OFFICE 75828 ISMAEL GUEVARA JR OUTANDRIY 7 7 T VISIT 15 MINUTES OFFICE 30100 [facility] OUTPATIEN 6 6 [place] T NEW 20 CLINIC MINUTES [facility] IN[facility] 6 6 [facility] 6 6 [facility] - 6 6 [facility] 6 6 [facility] - 6 6 [facility] EMERGENCY 47223 [facility] 6 PHYSICIAN SARAH VISIT S, PLLC HIGH SEVERITY& THREAT FUNCJ EMERGENCY 09796 CUBA JAQUEZ 6 6 PHYSICIAN FOR DEPARTMEN S, PLLC T VISIT MODERATE SEVERITY OFFICE 79181 [facility] DYLAN SIMMONS OUTANDRIY 6 6 PHYSICIAN MANJINDER T VISIT S GROUP 10 MINUTES HOSPITAL [facility] - 6 6 [facility] OUTPATIEN INC T OFFICE 96646 ISMAEL GUEVARA JR OUTANDRIY 6 6 YOJANA DWI T VISIT [address] [facility] DYLAN SIMMONS OUTPATIEN 6 6 PHYSICIAN MANJINDER T VISIT S GROUP 15 MINUTES HOSPITAL [facility] - 6 6 [facility] OUTPATIEN INC T OFFICE 17051 ISMAEL GUEVARA JR OUTPATIEN 6 6 YOJANA DWI T VISIT 15 MINUTES HOSPITAL OMARI - 6 6 [facility] OFF[facility] 40900 ISMAEL GUEVARA JR OUTPATIEN 6 6 YOJANA DWI T VISIT 15 MINUTES OFFICE 12484 ISMAEL GUEVARA OUTPATIEN 6 6 YOJANA YOJANA T VISIT 15 MINUTES OFFICE 11899 ISMAEL GUEVARA JR OUTPATIEN 5 5 YOJANA DWI T VISIT 15 MINUTES HOSPITAL [facility] - 5 5 [facility] OFFICE 98183 ISMAEL GUEVARA JR OUTPATIEN 5 5 YOJANA DWI T VISIT 15 MINUTES HOSPITAL [facility] - 5 5 [facility] HOSPITAL [facility] - OTHER 5 5 [facility] OFFICE 54447 ISMAEL GUEVARA JR OUTPATIEN 5 5 YOJANA DWI T VISIT [address] [facility] DYLAN SIMMONS OUTPATIEN 5 5 PHYSICIAN MANJINDER T VISIT S GROUP 15 MINUTES HOSPITAL O[facility]I - OTHER 5 5 [facility] OMARI - 5 5 [facility] OFFICE 55718 [facility] DYLAN SIMMONS OUTPATIEN 5 5 PHYSICIAN MANJINDER T VISIT S GROUP 25 MINUTES HOSPITAL [facility] - 5 5 [facility] 5 5 [facility] 5 5 [facility] - OTHER 5 5 [facility] OMARI - OTHER 5 5 [facility] OFFICE 42747 ISMAEL GUEVARA JR OUTPATIEN 5 5 YOJANA DWI T VISIT 15 MINUTES OFFICE 40913 ISMAEL GUEVARA JR OUTPATIEN 5 5 YOJANA DWI T VISIT 15 MINUTES HOSPITAL [facility] - 5 5 [facility] OUTPATIEN INC T EMERGENCY 09524 O[facility] 5 5 [facility] DEPARTMEN INC T VISIT HIGH/URGE NT SEVERITY [facility]OSPITAL [facility] - OTHER 5 5 [facility] INC OFFICE 10929 ISMAEL GUEVARA JR OUTPATIEN 5 5 YOJANA DWI T VISIT 15 MINUTES OFFICE 95553 ISMAEL GUEVARA JR OUTPATIEN 4 4 YOJANA DWI T VISIT 15 MINUTES OFFICE 54049 ISMAEL GUEVARA JR OUTPATIEN 4 4 YOJANA DWI T VISIT 15 MINUTES HOSPITAL [facility] - 4 4 [facility] OUTPATIEN INC T OFFICE 56347 [facility] ANJUR-SUKHDEV OUTPATIEN 4 4 [facility] T NEW 30 MEDICAL MINUTES G OFFICE 23573 ISMAEL GUEVARA JR OUTPATIEN 4 4 YOJANA DWI T VISIT 15 MINUTES HOSPITAL OMARI - 4 4 [facility] OUTPATIEN [facility] T OFFICE 44297 ISMAEL GUEVARA JR OUTPATIEN 4 4 YOJANA DWI T VISIT 15 MINUTES EMERGENCY 58967 [facility] 4 4 [facility] DEPARTMEN INC T VISIT HIGH/URGE NT SEVERITY [facility]OSPITAL [facility] - 4 4 [facility] OUTPATIEN INC T EMERGENCY 96950 [facility] DEPT 4 4 M[facility]GAN MOH VISIT EMERGENCY HIGH PHYS SEVERITY& THREAT FUNCJ OFFICE 55236 ISMAEL GUEVARA JR OUTPATIEN 4 4 YOJANA DWI T VISIT [address] ACCESS 4 4 [facility] EMERGENCY 04721 [facility] 4 4 [facility] T VISIT MODERATE SEVERITY OFFICE 70322 ISMAEL GUEVARA JR OUTPATIEN 4 4 YOJANA DWI T VISIT 10 MINUTES HOSPITAL [facility] - OTHER 4 4 [facility] INC OFFICE 96447 ISMAEL GUEVARA JR OUTPATIEN 4 4 YOJANA DWI T VISIT 15 MINUTES OFFICE 03210 ISMAEL GUEVARA JR OUTPATIEN 4 4 YOJANA DWI T VISIT 15 MINUTES HOSPITAL [facility] - 4 4 [facility] OUTPATIEN INC T OFFICE 44253 ISMAEL GUEVARA JR OUTPATIEN 4 4 YOJANA DWI T VISIT 15 MINUTES HOSPITAL [facility] - OTHER 4 4 [facility] INC OFFICE 61768 ISMAEL GUEVARA JR OUTPATIEN 4 4 YOJANA DWI T VISIT 15 MINUTES [facility] 94545 [facility] VISIT EMERGENCY HIGH PHYS SEVERITY& THREAT FUN OFFICE 93941 ISMAEL GUEVARA JR OUTPATIEN 4 4 YOJANA DWI T VISIT 15 MINUTES OFFICE 45727 ISMAEL GUEVARA JR OUTPATIEN 4 4 YOJANA DWI T VISIT 25 MINUTES HOSPITAL [facility] - 4 4 [facility] OUTPATIEN INC T EMERGENCY 51029 [facility] 4 4 [facility] DEPARTMEN EMERGENCY T VISIT PHYS HIGH/URGE NT SEVERITY [facility]OSPITAL [facility] - 4 4 [facility] OUTPATIEN INC T EMERGENCY 37178 [facility] 4 4 [facility] DEPARTMEN INC T VISIT MODERATE SEVERITY [facility] - 4 4 [facility] OUTPATIEN INC T EMERGENCY 08136 [facility] 4 4 [facility] DEPARTMEN INC T VISIT LOW/MODER SEVERITY EMERGENCY 41675 [facility] [address] [facility] EMERGENCY T VISIT PHYS MODERATE SEVERITY [facility]OSP[facility] - OTHER 4 4 [facility] OMARI - 3 3 [facility] OMARI - 3 3 [facility] T OFFICE 25946 ISMAEL GUEVARA JR OUTPATIEN 3 3 YOJANA DWI T VISIT 15 MINUTES OFFICE 92002 [facility] OUTPATIEN 3 3 [place] T VISIT ORTHOPAED 15 [facility] MINUTES OFFICE 47878 JAIME [facility] SA[facility]AN OUTPATIEN 3 3 [place] [facility] VISIT [facility]INIC 15 PSC MINUTES OFFICE 44519 TYESHA ARAMBULA OUTPATIEN 3 3 DON DON T VISIT 15 MINUTES OFFICE 62814 TYESHA ARAMBULA OUTPATIEN 3 3 DON DON T VISIT 15 MINUTES EMERGENCY 82883 EMILY MERINO DEPT 3 3 EMERGENCY III VARUN VISIT SERVICES HIGH SEVERITY& THREAT FUNJ EMERGENCY 58645 [facility] 3 3 [facility] T VISIT LOW/MODER SEVERITY [facility]OSPITAL [facility] - 3 3 [facility] 3 3 [facility] EMERGENCY 95770 [facility] 3 3 [facility] T VISIT LOW/MODER SEVERITY EMERGENCY 42994 EMILY BOOTH DEPT 3 3 EMERGENCY SAJAN VISIT SERVICES HIGH SEVERITY& THREAT FUNJ OFFICE 13751 TYESHA ARAMBULA OUTPATIEN 3 3 DON DON T VISIT 15 MINUTES HOSPITAL [facility] - 3 3 [facility]PATIEN INC T OFFICE 53708 TYESHA ARAMBULA OUTPATIEN 3 3 DON DON T VISIT 25 MINUTES HOSPITAL [facility] - 3 3 [facility]EN [facility] OFFICE 69306 ARAMBULA ARAMBULA OUTPATIEN 3 3 DON DON T VISIT 15 MINUTES HOSPITAL [facility] - 3 3 [facility] - 3 3 [facility] - 3 3 [facility] - 3 3 [facility] - 3 3 [facility] - 3 3 [facility] - 3 3 [facility] - 3 3 [facility]PATIEN [facility] OFFICE 72542 ARAMBULA ARAMBULA OUTPATIEN 3 3 DON DON T VISIT 15 MINUTES HOSPITAL [facility] - 3 3 [facility] T OFFICE 27512 ARAMBULA ARAMBULA OUTPATIEN 2 2 DON DON T VISIT 15 MINUTES OFFICE 87121 ARAMBULA ARAMBULA OUTPATIEN 2 2 DON DON T VISIT 25 MINUTES OFFICE 76565 ARAMBULA ARAMBULA OUTPATIEN 2 2 DON DON T VISIT 25 MINUTES OFFICE 12009 ARAMBULA ARAMBULA OUTPATIEN 2 2 DON DON T VISIT 25 MINUTES OFFICE 53693 ARAMBULA ARAMBULA OUTPATIEN 2 2 DON DON T VISIT 15 MINUTES HOSPITAL [facility] - 2 2 [facility] T EMERGENCY 93009 [facility] 2 2 [facility] T VISIT HIGH/URGE NT SEVERITY EMERGENCY 26888 EMILY BOOTH DEPT 2 2 EMERGENCY SAJAN VISIT SERVICES HIGH SEVERITY& THREAT FUN OFFICE 83279 JAIME GEIGER SAJAN OUTPATIEN 2 2 [place] T VISIT CLINIC 15 PSC MINUTES HOSPITAL [facility] - 2 2 [facility] OUTPATIEN INC T OFFICE 92759 ARAMBULA ARAMBULA OUTPATIEN 2 2 DON DON T VISIT 15 MINUTES OFFICE 50665 ARAMBULA ARAMBULA OUTPATIEN 2 2 DON DON T VISIT 15 MINUTES HOSPITAL [facility] - 2 2 [facility] 2 2 [facility] OFFICE 38814 ARAMBULA ARAMBULA OUTPATIEN 2 2 DON DON T VISIT 15 MINUTES OFFICE 42002 ARAMBULA ARAMBULA OUTPATIEN 2 2 DON DON T VISIT 15 MINUTES OFFICE 81822 ARAMBULA ARAMBULA OUTPATIEN 1 1 DON DON T VISIT 15 MINUTES OFFICE 75654 ARAMBULA ARAMBULA OUTPATIEN 1 1 DON DON T VISIT 15 MINUTES OFFICE 02039 PAWSAT PAWSAT OUTPATIEN 1 1 Jan T VISIT 10 MINUTES OFFICE 04971 ARAMBULA ARAMBULA OUTPATIEN 1 1 DON DON T VISIT 15 MINUTES EMERGENCY 54408 [facility] MODERATE SEVERITY OFFICE 28268 ARAMBULA ARAMBULA OUTPATIEN 1 1 DON DON T VISIT 15 MINUTES HOSPITAL [facility] - 1 1 [facility] INC T OFFICE 06072 ARAMBULA ARAMBULA OUTPATIEN 1 1 DON DON T VISIT 15 MINUTES OFFICE 31899 ARAMBULA ARAMBULA OUTPATIEN 1 1 DON DON T VISIT 15 MINUTES OFFICE 83540 [place] 1 1 [place] [facility]IC MINUTES PSC OFFICE 26533 ARAMBULA ARAMBULA OUTPATIEN 1 1 DON DON T VISIT 15 MINUTES OFFICE 78852 PAWSAT PAWSAT OUTPATIEN 1 1 MAR MAR T NEW 20 MINUTES [facility]OSP[facility] - 1 1 [facility] INC T OFFICE [address] [facility] OUTPATIEN 1 1 [place] T VISIT CLINIC 25 PSC MINUTES OFFICE 23267 ARAMBULA ARAMBULA OUTPATIEN 1 1 DON DON T VISIT 15 MINUTES OFFICE 61503 ARAMBULA ARAMBULA OUTPATIEN 1 1 DON DON T VISIT 15 MINUTES OFFICE 19411 ARAMBULA ARAMBULA OUTPATIEN 1 1 DON DON T VISIT 15 MINUTES OFFICE 56343 [facility] OUT[facility] 1 1 [facility] VISIT HOSPITAL 15 P MINUTES OFFICE 52025 ARAMBULA ARAMBULA OUTPATIEN 1 1 DON DON T VISIT 15 MINUTES OFFICE 12763 ARAMBULA ARAMBULA OUTPATIEN 1 1 DON DON T VISIT 15 MINUTES [facility] - 1 1 [facility] OUTPAT[facility] INC T OFFICE 42635 ARAMBULA ARAMBULA OUTPATIEN 1 1 DON DON T VISIT 15 MINUTES OFFICE 66292 ARAMBULA ARAMBULA OUTPATIEN 0 0 DON DON T VISIT 15 MINUTES OFFICE 98170 ARAMBULA ARAMBULA OUTPATIEN 0 0 DON DON T VISIT 15 MINUTES OFFICE 72806 ARAMBULA ARAMBULA OUTPATIEN 0 0 DON DON T VISIT 15 MINUTES OFFICE 81779 TYESHA ARZATES OUTPATIEN 0 0 DON DON T VISIT 15 MINUTES EMERGENCY 02469 [facility] 0 0 [facility] DEPARTMEN INC T VISIT LOW/MODER SEVERITY EMERGENCY 28531 EMILY BOOTH 0 0 EMERGENCY [facility] DEPARTMEN SERVICES T VISIT HIGH/URGE NT SEVERITY [facility] OUT[facility] T OFFICE 29894 TYESHA ARZATES OUTPATIEN 0 0 DON DON T VISIT 15 MINUTES [facility] INC T OFFICE 42115 TYESHA ARZATES OUTPATIEN 0 0 DON DON T VISIT 15 MINUTES OFFICE 97425 [facility] OUTPATIEN 0 0 LTH VARUN T VISIT UROLOGY 15 PSC MINUTES OFFICE 30038 TYESHA ARZATES OUTPATIEN 0 0 DON DON T VISIT 15 MINUTES OFFICE 93621 [facility] EST[facility] JR OUTPATIEN 0 0 LTH VARUN T NEW 20 UROLOGY MINUTES PSC OFFICE 39638 TYESHA ARZATES OUTPATIEN 0 0 DON DON T VISIT 15 MINUTES OFFICE 87578 TYESHA ARZATES OUTPATIEN 0 0 DON DON T VISIT 15 MINUTES OFFICE 88445 ARAMBULA, ARAMBULA, OUTPATIEN 0 0 DON R DON R T VISIT 15 MINUTES EMERGENCY 65926 EMILY BOOTH, 0 0 EMERGENCY MADDY S DEPARTMEN SERVICES T VISIT HIGH/URGE ASSOCIATE NT S SEVERITY [facility] T EMERGENCY 18782 [facility] 0 0 [facility] DEPARTMEN INC T VISIT LIMITED/M INOR PROB OFFICE 19675 TYESHA ARAMBULA OUTPATIEN 0 0 DON R DON R T VISIT 15 MINUTES OFFICE 37010 JAIME FELYBANDAR 0 0 AKIKO Johnson T VISIT CLINIC 15 PSC MINUTES OFFICE 78923 TYESHA ARAMBULA OUTPATIEN 0 0 DON R DON R T VISIT 15 MINUTES EMERGENCY 31921 EMILY GUNN, [address] [facility] SERVICES T VISIT HIGH/URGE ASSOCIATE NT S SEVERITY [facility] 0 [facility] OUTPATI[facility] INC T EMERGENCY 95389 [facility] 0 0 [facility] INC T VISIT LIMITED/M INOR PROB OFFICE 83700 TYESHA ARAMBULA OUTPATIEN 0 0 DON R DON R T VISIT 15 MINUTES [facility] INC T OFFICE 21662 TYESHA ARAMBULA OUTPATIEN 0 0 DON R DON R T VISIT 15 MINUTES OFFICE 19324 [place] BANDAR MCLAIN 0 0 AND HAND NANDO A T NEW 10 SURGEONS MINUTES [facility] - 0 0 [facility] OUTPATIEN INC T OFFICE 80666 TYESHA ARAMBULA OUTPATIEN 0 0 DON R DON R T VISIT 25 MINUTES OFFICE 79937 TYESHA ARAMBULA OUTPATIEN 0 0 DON R DON R T VISIT 15 MINUTES OFFICE 07390 TYESHA ARAMBULA OUTPATIEN 9 9 DON R DON R T VISIT 15 MINUTES OFFICE 39386 TYESHA ARAMBULA OUTPATIEN 9 9 DON R DON R T VISIT 15 MINUTES [facility] 9 9 [facility] T [facility] - 9 9 [facility] INPATIENT INC EMERGENCY 05286 EMILY BOOTH DEPT 9 9 EMERGENCY MADDY Zak VISIT SERVICES HIGH SEVERITY& ASSOCIATE THREAT S FUNCJ OFFICE 43866 TYESHA ARAMBULA OUTPATIEN 9 9 DON R DON R T VISIT 15 MINUTES OFFICE 25876 TYESHA ARAMBULA OUTPATIEN 9 9 DON R DON R T VISIT 15 MINUTES OFFICE 35700 TYESHA ARAMBULA OUTPATIEN 9 9 DON R DON R T VISIT 15 MINUTES OFFICE 96572 TYESHA ARAMBULA OUTPATIEN 9 9 DON R DON R T VISIT 25 MINUTES [facility] - 9 9 [facility] T EMERGENCY 44772 EMILY RAINES 9 9 EMERGENCY [facility] DEPARTMEN SERVICES T VISIT HIGH/URGE ASSOCIATE NT S SEVERITY EMERGENCY 24629 [facility] 9 9 [facility] INC T VISIT MODERATE SEVERITY [facility] - 9 9 [facility] T OFFICE 11369 BANDAR CARRASCO 9 9 AKIKO MADDY Johnson T VISIT CLINIC 25 PSC MINUTES OFFICE 02257 TYESHA ARAMBULA OUTPATIEN 9 9 DON R DON R T VISIT 15 MINUTES OFFICE 86685 BANDAR CARRASCO 9 9 AKIKO MADDY Johnson T VISIT CLINIC 25 PSC MINUTES [facility] - 9 9 [facility] OUTPATIEN INC T OFFICE 16042 TYESHA ARAMBULA OUTPATIEN 9 9 DON R DON R T VISIT 15 MINUTES OFFICE 34853 TYESHA ARAMBULA OUTPATIEN 9 9 DON R DON R T VISIT 15 MINUTES OFFICE 75158 TYESHA RAAMBULA OUTPATIEN 8 8 DON R DON R T VISIT 15 MINUTES OFFICE 82221 TYESHA ARAMBULA OUTPATIEN 8 8 DON R DON R T VISIT 15 MINUTES OFFICE 54432 TYESHA ARAMBULA OUTPATIEN 8 8 DON R DON R T VISIT 15 MINUTES OFFICE 77879 [facility] BANDAR BELL 8 8 [facility] 45 CLINIC MINUTES [facility] EMERGENCY 13240 [facility] [address] [facility] VISIT MODERATE SEVERITY EMERGENCY 12413 EMERGENCY ACKERMAN, DEPT 8 8 PHYS CARL W VISIT [place] HIGH SEVERITY& THREAT [facility] [address] [place] [address] [facility] 8 8 [facility] 99486 TYESHA ARAMBULA OUTPATIEN 8 8 DON R DON R T VISIT 15 MINUTES OFFICE [id number] TYESHA [facility]AMBULA OUTPATIEN 8 8 DON R DON R T VISIT 15 MINUTES OFFICE [id number] TYESHA ARAMBULA OUTPATIEN 8 8 DON R DON R T VISIT 15 MINUTES OFFICE [id number] TYESHA ARAMBULA OUTPATIEN 8 8 DON R DON R T VISIT 15 MINUTES OFFICE [id number] TYESHA ARAMBULA OUTPATIEN 8 8 DON R DON R T VISIT 15 MINUTES
--- OUTSIDE RECORDS SUMMARY | 2017-08-19 20:56 | External Medical Summary Rpt | CCD ---
Demographics Preferred Language Kazakh Marital Status Unknown Christianity Affiliation Unknown Race Unknown Ethnic Group Unknown Author Author , KARLIE ZIEGLRE Address Unknown Phone Immunization No patient found.
--- OUTSIDE RECORDS SUMMARY | 2017-08-19 20:56 | External Medical Summary Rpt | CCD ---
Demographics Preferred Language Serbian Marital Status Unknown Worship Affiliation Unknown Race Unknown Ethnic Group Unknown Author Author , KARLIE ZIEGLER Address Unknown Phone Immunization No patient found.
== END 2017-08-14 11:05 | disposition home health service (06) | DRG 293 ==
LOC: UTC 11:46 → ER 11:47 → 2ND 16:45
PROVIDERS: Emergency Medicine; Internal Medicine Adolescent Medicine; Internal Medicine Cardiovascular Disease
DX: I11.0 Hypertensive heart disease with heart failure (principal); I48.2 Chronic atrial fibrillation; I08.3 Combined rheumatic disorders of mitral, aortic and tricuspid valves; I50.33 Acute on chronic diastolic (congestive) heart failure; I25.2 Old myocardial infarction; I51.7 Cardiomegaly; E78.5 Hyperlipidemia, unspecified; I25.10 Atherosclerotic heart disease of native coronary artery without angina pectoris; J45.909 Unspecified asthma, uncomplicated; Z85.72 Personal history of non-Hodgkin lymphomas; Z86.73 Personal history of transient ischemic attack (TIA), and cerebral infarction without residual deficits; Z86.14 Personal history of Methicillin resistant Staphylococcus aureus infection; Z86.718 Personal history of other venous thrombosis and embolism; Z96.653 Presence of artificial knee joint, bilateral; Z95.0 Presence of cardiac pacemaker; Z90.49 Acquired absence of other specified parts of digestive tract; Z88.3 Allergy status to other anti-infective agents; Z88.5 Allergy status to narcotic agent; Z88.0 Allergy status to penicillin; Z88.2 Allergy status to sulfonamides; Z88.8 Allergy status to other drugs, medicaments and biological substances; Z79.891 Long term (current) use of opiate analgesic; Z79.899 Other long term (current) drug therapy; Z82.49 Family history of ischemic heart disease and other diseases of the circulatory system; Z80.9 Family history of malignant neoplasm, unspecified; Z83.49 Family history of other endocrine, nutritional and metabolic diseases
CPT/HCPCS: G0328; G0378; J2405; Q9967

== ENCOUNTER → 2017-08-31 | Outpatient (CLI) | payer MEDICARE, MEDICAID ==
[~2017-08-31] MED LIST changes: +REGLAN 5MG TABLE5 MG PO
[2017-08-31 15:57] LABS: HEMOGLOBIN 12.5 g/dL (12.2-16.2); LYMPH # 2.4 K/mm3 (0.7-4.5); LYMPH % 40.3 % (10-50.0)
[2017-08-31 16:02] LABS: BUN 33 mg/dL (7-18); GFR (ESTIMATED) 47 ML/MIN (59-)
--- NOTE | 2017-08-31 16:37 | RADIOLOGY REPORT PS360 ---
CHEST(2 VIEWS-NOT PORTABLE) HISTORY: CHF,CHRONIC KIDNEY DISEASE,WEAKNESS ORDERING PHYSICIAN: Maury Nath MD PATIENT AGE: 87 years COMPARISON: 08/12/2017 FINDINGS: There is mild cardiomegaly without failure. RV pacemaker is present there is chronic blunting of the right CP angle. Lungs are free of acute infiltrate. Prior vertebral plasty is present in the thoracic lumbar junction. Mitral valve annular calcifications are noted. IMPRESSION: Cardiomegaly with RV pacemaker present and chronic blunting of the right CP angle. No acute finding.
== END ==
LOC: LAB 15:40
PROVIDERS: Internal Medicine
DX: I50.32 Chronic diastolic (congestive) heart failure (principal); N18.3 Chronic kidney disease, stage 3 (moderate); R53.1 Weakness

== ENCOUNTER → 2017-10-07 | Outpatient (CLI) | payer MEDICARE, MEDICAID ==
[~2017-10-07] MED LIST changes: +BREO ELLIPTA 21 EACH IH; +MACROBID100 M3 PO
--- NOTE | 2017-10-08 08:38 | RADIOLOGY REPORT PS360 ---
CT ABD PELVIS W/O CONTRAST CLINICAL INDICATION: HEMATURIA, RT FLANK PAIN ORDERING PHYSICIAN: Maury Nath MD PATIENT AGE: 87 years COMPARISON: 08/12/2017 TECHNIQUE: Axial images obtained with sagittal and coronal reformats. PROCEDURE: Oral Contrast: None IV Contrast: None . FINDINGS: Lower thorax: Small right pleural effusion with chronic changes in the right lung base anteriorly. There is mild cardiomegaly with artifact from an RV pacer. ABDOMEN/PELVIS: The liver and adrenal glands have an unremarkable appearance. There has been a prior cholecystectomy with prominent common bile duct similar to the previous exam. There is pancreatic atrophy. Result large right renal cyst at 8 cm. No obstructing renal or ureteral calculi. No intestinal obstruction or free air. There are postsurgical changes of the anterior abdominal wall. There is a mild amount retained colonic feces. Considerable artifact is present from bilateral hip prosthesis. No focal inflammatory change. No evidence of appendicitis or diverticulitis. Postsurgical defect is present in the right ilium. Postsurgical changes are present in the lumbar spine with prior fusion at L4 and L5 and prior hypoplasty at T12 with chronic wedging of T12 and mild wedging of L1 which is unchanged. IMPRESSION: 1. No acute abdominal or pelvic findings. 2. No change large right renal cyst. 3. Small right pleural effusion. 4. Other nonacute findings as described above
== END ==
LOC: RAD 14:49
DX: R31.9 Hematuria, unspecified (principal); R10.9 Unspecified abdominal pain

== ENCOUNTER 2017-10-11 10:44 | Observation (INO) | payer MEDICARE, MEDICAID ==
[~2017-10-11] VITALS: Ht 152.4 cm; Wt 63.2 kg
[~2017-10-11 10:44] MED LIST changes: -BREO ELLIPTA 21 EACH IH; -MACROBID100 M3 PO
[2017-10-11 10:56] VITALS: BP 160/68
[2017-10-11] MEDS ORDERED: BREO ELLIPTA 21 EACH IH (11:04)
[2017-10-11 11:28] LABS: HEMOGLOBIN 11.3 g/dL (12.2-16.2); LYMPH % 12.7 % (10-50.0)
[2017-10-11 11:48] LABS: URINE BLOOD 3+ (NEG)
[2017-10-11 12:11] LABS: URINE BILIRUBIN - DIPSTICK 1+ (NEG); URINE SQUAMOUS CELLS OCC #/hpf (0-5)
[2017-10-11 12:27] LABS: BUN 13 mg/dL (7-18)
[2017-10-11 12:34] LABS: GFR (ESTIMATED) 59 ML/MIN (59-)
[2017-10-11 12:36] LABS: NEUTROPHILS 75 % (42-76)
--- NOTE | 2017-10-11 13:29 | Emergency Room Report ---
See Addendum History of Present Illness Time Seen by [id number] Presenting Problem in Triage Pt arrived:Wheelchair Presenting Problem:COUGH, SHORT OF BREATH. SEEN DR GUEVARA LAST WEDNESDAY AND WAS PLACED ON AN INHALER AND GIVEN A SHOT OF STEROIDS AT THE OFFICE. SHE ALSO HAD A CT OF HER KIDNEYS LAST WEDNESDAY BECAUSE SHE HAD BLOOD IN HER URINE. 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 N Clinical Suspician of Infection? N Mental Status: 1 - Regular (Normal Baseline) Sepsis Risk:Low Sepsis Risk Have you (or family members/close friends) recently traveled outside the [place]? N If Yes, where/when: Have you had exposure to infectious disease within the past month? N TB? Other? Specify: Source patient, RN notes reviewed, family, old records Exam Limitations no limitations Comment pt with acute progressive weakness and dec po intake with no fever Cardiac Chest Pain Chest pain indicative of cardiac No Timing/Duration this evening Severity moderate ALLERGIES Coded Allergies: Penicillins (I-HIVES 04/20/17) Sulfa (Sulfonamide Antibiotics) (NA-NAUSEA/VOMITING 04/20/17) cephalexin (From KEFLEX) (NA-NAUSEA/VOMITING 04/20/17) ciprofloxacin (From CIPRO) (NA-NAUSEA/VOMITING 04/20/17) codeine (NA-NAUSEA/VOMITING 04/20/17) fexofenadine (From SALVADOR) (NA-NAUSEA/VOMITING 04/20/17) morphine (CONFUSION 04/20/17) promethazine (From PHENERGAN) (04/20/17) Home Medications Active Scripts Furosemide (Furosemide 40MG Tablet) 40 MG PO DAILY PRN DIURETIC #30 TABLET Ref 5 Prov: 08/14/17 Metoclopramide Hcl (Reglan) 5 MG PO AC #28 TAB Ref 1 Prov: 08/12/17 BISOPROLOL FUMARATE (Bisoprolol 5MG) 10 MG PO DAILY #30 TAB Ref 6 Prov: 04/21/17 Citalopram Hydrobromide (Citalopram HBr) 40 MG PO DAILY #30 TAB Ref 5 Prov: 05/11/14 Sucralfate (Carafate) 1 GM PO AC #90 TAB Ref 1 Prov: 06/24/15 Reported Medications Dexlansoprazole (Dexilant) 60 MG PO DAILY Ondansetron (Zofran 8MG Odt) 8 MG PO Q8HP NITROGLYCERIN (Nitrostat) 0.4 MG SL [id number] PRN CHEST PAIN Loratadine (Claritin 10MG) 10 MG PO DAILY OXYCODONE 7.5MG/[id number] (Oxycodon-Acetaminophen 7.5-325) 1 TAB PO Q6HP PRN PAIN MANAGEMENT Lorazepam (Lorazepam 1MG) 1 MG PO BID Fluticasone/Vilanterol (Breo Ellipta 200-25 Mcg INH) 1 EACH IH DAILY History Medical History General CAD? Yes Angina: Yes [place]: Yes Hypertension? Yes Hyperlipidemia? Yes CHF? No DVT? Yes PE? No COPD? No Asthma? Yes Anemia? No GERD? Yes Gastric ulcers? No GI Bleed? No Hernia? Yes Thyroid Problems? No Hypothyroidism? No CVA? Yes Seizures? No Diabetes? No Insulin Dependent: No Insulin Pump: No Home FSBS? No Renal Insuffiency? No End Stage Renal Disease? No UTI? Yes Stones? No BPH? No GB Disease: Yes Nephritic Syndrome? No Asplenia? No Hepatitis? No Sickle Cell Disease? No Arthritis? Yes Migraines? Yes Cataracts? Yes Glaucoma? No MRSA? Yes HIV? No TB? No Anxiety? Yes Depression? 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 Hx Ped.Immunizations UTD No DT/Tetanus Unknown Flu Refused Pneumonia Refuses Surgical Hx Previous Surgery?Y BACK SURGERY JOHNATHON KNEE REPLACEMENT CHOLECYSTECTOMY Appendix HEART CATH 2009 ROTATOR CUFF REPAIR LEFT CATARACT REMOVAL JOHNATHON Spleen REMOVED OOPHRECTOMY/SALPINGECTIOM BILAT HIP BACK-COMPRESSION FX Pacemaker placed 04/20/17 Family History Family Hx Diabetes No CAD Yes Hypertension Yes Hyperlipidemia Yes Cancer Yes TB No Social History Smoking Hx Smoker: Former Smoker Tobacco: No Packs/day N/A Are you/the child exposed to second-hand smoke: Yes Alcohol Alcohol: No Drugs none Review of Systems All Other Systems Reviewed and Negative Constitutional see HPI, denies fever, weakness Eyes denies drainage ENT denies: ear discharge, epistaxis, throat pain. Respiratory denies cough, denies shortness of breath, denies wheezing Cardiovascular denies chest pain, denies syncope Gastrointestinal denies abdominal pain, denies diarrhea, denies vomiting Genitourinary denies: dysuria, frequency, hesitancy, hematuria. Musculoskeletal denies back pain, denies joint pain, denies joint swelling, denies neck pain Skin denies rash Psychiatric/Neurological denies headache, denies seizure Physical Exam Vital Signs Vital Signs Date Time Temp Pulse Resp B/P Pulse O2 O2 Flow FiO2 Ox Delivery Rate 10/11 1305 77 22 148/88 96 10/11 1130 76 22 143/72 96 10/11 1100 82 22 137/78 96 10/11 1056 97.8 79 22 160/68 98 - WBC >12,000 or <4,000 or 10% bands? 2 or more SIRS Criteria Met? B/P:147/67 MAP:98 Creatinine >2.0? UA output<0.5ml/kg/hr for 2 hrs? Platelet count >100,000? Lactate >2.0mmol/1? INR >1.2 or PTT > than 60 sec? Evidence of Organ Dysfunction? Provider documented clinical suspician of infection? N Sepsis Criteria Count: 1 Sepsis Risk: Low Sepsis Risk General Appearance no apparent distress Eye Exam - bilateral eye PERRL, bilateral eye EOMI Ear, Nose, Throat normal ENT inspection Neck non-tender Respiratory Status No: respiratory distress. Lung Sounds bilateral: decreased breath sounds. Cardiovascular regular rate/rhythm, systolic murmur Peripheral Pulses Pulses normal Yes Gastrointestinal soft Extremities no calf tenderness, pedal edema Strength 3 Lower Ext (L), 3 Lower Ext (R), 4 Upper Ext (L), 4 Upper Ext (R) Neurologic alert, cloth bale header II-XII nml as tested Reflexes Reflexes normal No Mental status normal mood/affect Skin intact Medical Decision Making LABS/Meds/Orders Pt receiving controlled substance in ED? No Results/Orders Laboratory Tests 10/11/17 1110: Urine Color YELLOW, Urine Appearance CLEAR, Urine pH 6.0, Ur Specific Nada 1.020, Urine Protein 2+ H, Urine Ketones TRACE H, Urine Blood 3+ H, Urine Nitrate POSITIVE H, Urine Bilirubin 1+ H, Urine Urobilinogen 2.0, Ur Leukocyte Esterase 3+ H, Urine RBC NONE, Urine WBC TNTC, Ur Squamous Epith Cells OCC, Urine Bacteria 2+, Urine Glucose NEGATIVE 10/11/17 1109: Lactic Acid 1.9 10/11/17 1109: Sodium 140, Potassium 4.2, Chloride 103, Carbon Dioxide 29, BUN 13, Creatinine 0.9, Estimated Creat Clear 45 L, Estimated GFR (MDRD) 59, Glucose 108 H, Calcium 8.6, Total Bilirubin 0.7, AST 20, ALT 20, Alkaline Phosphatase 100, Creatine Kinase 18 L, CK-MB (CK-2) Rel Index 2.8, CK and CKMB Interp < 0.5, Troponin I < 0.02, B-Natriuretic Peptide 1070 H, Total Protein 6.7, Albumin 3.1 L, Globulin 3.6 H, Albumin/Globulin Ratio 0.9 L, WBC 15.5 H, RBC 3.45 L, Hgb 11.3 L, Hct 34.7 L, MCV 100.4 H, RDW 13.0, Plt Count 264, MPV 9.1, Gran % 79.3, Gran # 12.3 H, Total Counted 100, Lymphocytes % 12.7, Monocytes % 6.4, Eosinophils % 1.0, Basophils % 0.6, Neutrophils 75, Band Neutrophils 1, Lymphocytes (Manual) 17, Lymphocytes # 2.0, Monocytes (Manual) 7, Monocytes # 1.0, Eosinophils # 0.2, Basophils # 0.1, Platelet Estimate NORMAL, PUBS MCHC 32.7, MCH 32.8 H Current Medication Orders Sig/Dorys Start time Last Medication Dose Route Stop Time Status Admin Sodium Chloride 10 ML PRN PRN 10/11 1100 AC IV 10/12 1055 Orders Procedure Date/time Status Decision to admit 10/11 1333 Active CULTURE, BLOOD 10/11 1330 Active LACTIC ACID 10/11 1330 Complete CULTURE, URINE 10/11 1110 Active DIFFERENTIAL-WBC 10/11 1109 Complete ELECTROCARDIOGRAM REQUEST 10/11 1055 Active CHEST-PORTABLE 10/11 1055 Active IV SALINE LOCK 10/11 1055 Active URINALYSIS/COMPLETE 10/11 1055 Complete CBC WITH AUTO DIFF 10/11 1055 Complete CARDIAC ENZYMES 10/11 1055 Complete CHEM 12 PROFILE 10/11 1055 Complete BRAIN NATRIURETIC PEPTIDE 10/11 1055 Complete 12 LEAD EKG-PORTILLO (INITIAL) 12/04 UNK Active 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
--- OUTSIDE RECORDS SUMMARY | 2017-10-11 13:46 | External Medical Summary Rpt | CCD ---
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, UNSPECIFIED , UNSPECIFIED SITE I50.32 CHRONIC DIASTOLIC (CONGESTIVE ) HEART FAILURE I50.9 HEART FAILURE, UNSPECIFIED 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 J90 PLEURAL EFFUSION, NOT ELSEWHERE CLASSIFIED K59.00 CONSTIPATIO N, UNSPECIFIED N18.3 CHRONIC KIDNEY DISEASE, STAGE 3 (MODERATE) N28.1 CYST OF KIDNEY, ACQUIRED R07.9 CHEST PAIN, UNSPECIFIED R10.9 UNSPECIFIED ABDOMINAL PAIN R53.1 WEAKNESS S09.90XA Unspecified injury of head, initial encounter S32.592A OTH FRACTURE OF LEFT PUBIS, INIT ENCNTR FOR CLOSED FRACTURE S51.812A Laceration without foreign body of left forearm, initial encounter W19.XXXA Unspecified fall, initial encounter Allergies, Adverse Reactions, Alerts Type Drug Allergy Propensity to adverse reactions to drug Adverse Reaction to Substance Substance Reaction Severity Penicillin Unknown Unknown Morphine Unknown Unknown Penicillin G Unknown Unknown Promethazine Unknown Unknown Medications Na ND Rx Da Fi Fi Am Da Di Ph RX Ph St me C No te ll ll ou ys ag ar # ys at rm s nt no ma ic us Or Da si cy ia de te s n re d AP 00 04 0 No AP 40 -1 /H 60 5- Lo YD 36 20 ng RO 56 13 er CO 2 DO Ac NE ti ve 32 5 MG -5 MG KE 00 04 0 No TO 40 -1 RO 93 0- Lo LA 79 20 ng C 60 13 er 60 1 Ac MG ti /2 ve ML AL Vital Signs 02-20-2013 16:55 Name Value Interpretat [...] Order Detail nces retati t Range on CBC w auto diff (08-31-2017 15:40) Automat = 0.1 0-0.2 complet ed 017 K/MM3 ed blood 15:40 basophi l count (count/ vo Baso % = 1.4 % 0.1-2.0 complet 017 ed 15:40 Automat 2 = 0.2 0.0-0.4 complet ed 017 K/mm3 ed blood 15:40 eosinop hil count Automat = 3.5 % 0.1-12. complet ed 017 0 ed blood 15:40 eosinop hils/10 0 leukocy t Blood = 2.6 1.8-7.8 complet granulo 017 K/mm3 ed cytes 15:40 automat ed count (numb Granulo = 44.7 37.0-80 complet cyte 017 % .0 ed percent 15:40 age Blood = 39.7 37.0-47 complet hematoc 017 % .0 ed rit 15:40 (volume fractio n) Blood = 12.5 12.2-16 complet hemoglo 017 g/dL .2 ed bin 15:40 measure ment (mass/v olum Absolut = 2.4 0.7-4.5 complet e 017 K/mm3 ed lymphoc 15:40 yte count Lymphoc = 40.3 10-50.0 complet yte 017 % ed count, 15:40 blood, automat ed Mean = 32.5 27-31.2 complet corpusc 017 pg ed ular 15:40 hemoglo bin (MCH) determ Automat = 31.4 31.8-35 complet ed 017 g/dl .4 ed erythro 15:40 cyte mean corpusc ular h Automat = 103.3 82.2-97 complet ed 017 fl .8 ed erythro 15:40 cyte mean corpusc ular v Absolut = 0.6 0.1-1.0 complet e 017 K/mm3 ed monocyt 15:40 e count [place] % = 10.1 1.7-9.3 complet 017 % ed 15:40 Automat = 8.6 7.4-10. complet ed 017 fl 4 ed blood 15:40 platele t mean volume mannie Blood = 248 142-424 complet platele 017 K/mm3 ed t count 15:40 Red = 3.84 4.2-5.4 complet blood 017 M/mm3 ed cell 15:40 count Automat = 12.9 11.5-17 complet ed 017 % .5 ed erythro 15:40 cyte distrib ution width Blood = 5.8 4.8-10. complet leukocy 017 K/MM3 8 ed rain 15:40 count (number /volume ) Basic metabolic panel (08-31-2017 15:40) Serum = 33 7-18 complet or 017 mg/dL ed plasma 15:40 urea nitroge n measure men Serum 08-31-2 = 8.5 8.5-10. complet or 017 mg/dL 1 ed plasma 15:40 calcium measure ment (mas Serum 2 = 101 98-107 complet or 017 mmoL/L ed plasma 15:40 chlorid e measure ment (mo Carbon 08-31-2 = 29 21.0-32 complet dioxide 017 mmoL/L .0 ed 15:40 measure ment Serum 2 = 1.1 0.55-1. complet or 017 mg/dL 02 ed plasma 15:40 creatin ine measure ment ( Estimat 2 = 47 59- complet ed 017 ML/MIN ed glomeru 15:40 lar filtrat ion rate (GF Comment: REFERENCE RANGE: >60 ML/MIN/1.73 SQUARE METERS Comment: If this patient is -Polish, then multiply the Comment: result by 1.210. Serum 2 = 105 74-106 complet or 017 mg/dL ed plasma 15:40 glucose measure ment (mas Serum 2 = 4.6 3.5-5.1 complet potassi 017 mmoL/L ed um 15:40 measure ment Serum 2 = 136 136-145 complet sodium 017 mmoL/L ed measure 15:40 ment Basic metabolic panel (08-14-2017 06:50) Serum 08-14-2 = 8.8 8.5-10. complet or 017 mg/dL 1 ed plasma 06:50 calcium measure ment (mas Serum = 100 98-107 complet or 017 mmoL/L ed plasma 06:50 chlorid e measure ment (mo Carbon = 32 21.0-32 complet dioxide 017 mmoL/L .0 ed 06:50 measure ment Serum = 1.1 0.55-1. complet or 017 mg/dL 02 ed plasma 06:50 creatin ine measure ment ( Estimat = 35 50-200 complet ion of 017 ML/MIN ed creatin 06:50 ine renal clearan ce Estimat = 47 59- complet ed 017 ML/MIN ed glomeru 06:50 lar filtrat ion rate (GF Comment: REFERENCE RANGE: >60 ML/MIN/1.73 SQUARE METERS Comment: If this patient is -Polish, then multiply the Comment: result by 1.210. Serum = 93 74-106 complet or 017 mg/dL ed plasma 06:50 glucose measure ment (mas Serum = 3.8 3.5-5.1 complet potassi 017 mmoL/L ed um 06:50 measure ment Serum = 138 136-145 complet sodium 017 mmoL/L ed measure 06:50 ment Serum = 20 7-18 complet or 017 mg/dL ed plasma 06:50 urea nitroge n measure men Encounters Encounter Start End Date Code Location Performer Type Date Emergency TY Arias (ER) 3 14:41 3 16:55 [facility] Jorge Rodas Emergency TY Stark MD (ER) 3 20:06 3 23:03 [facility]
--- OUTSIDE RECORDS SUMMARY | 2017-10-11 13:46 | External Medical Summary Rpt | CCD ---
Author Author , KARLIE Organization KARLIE Address Unknown Phone [email or web address] Care Team Providers Care Television Production Clerk Name Role Phone Jorge Tate III, MD, Jorge Arias III, MD Purpose Continuity of Care Document - 02-15-2013 through 2016 Problems Code Diagnosis DOS Provider Status 805.2 805.2 FX 02-20-2013 [facility] DORSAL [facility] OSE E849.0 E849.0 02-20-2013 [facility] ACCIDENT IN [facility] E885.9 E885.9 FALL 02-20-2013 Ray[facility] FROM [facility] SLIPPING, Hospital TRIPPING, OR STUMBLING NEC C85.90 [...] 017 K/mm3 ed monocyt 15:40 e count [place] % = 10.1 1.7-9.3 complet 017 % [...] SQUARE METERS Comment: If this patient is -Turkmen, then multiply the Comment: result by 1.210. [...] SQUARE METERS Comment: If this patient is -Turkmen, then multiply the Comment: result by 1.210. [...] TY Arias (ER) 3 14:41 3 16:55 [facility] Jorge Rodas Emergency TY Stark MD (ER) 3 20:06 3 23:03 [facility]
--- OUTSIDE RECORDS SUMMARY | 2017-10-11 13:52 | External Medical Summary Rpt | CCD ---
Author Author , KRALIE Organization KARLIE Address Unknown Phone [email or web address] Care Team Providers Care Client Support Coordinator Name Role Phone [employer] Unavailable Unavailable INC, [employer] [facility] Un[facility] Unavailable CTR, [facility] Unavailable Unavailable SERVICE, [facility] Unavailable Unavailable SERVICE[facility] Unavailable Unavailable CAMPUS, [facility] Unavailable Unavailable [facility]HESIA, [facility] Unavailable Unavailable [facility], [facility] Unavailable Unavailable DUBILIER, [facility], Unavailable Unavailable [facility] Unavailable Unavailable [place], [facility] Unavailable Unavailable [facility], [facility] Unavailable Unavailable THE [facility], [facility] MARTINE LIANG, Unavailable Unavailable MARTINE LIANG DOUGLAS, Unavailable Unavailable DEAN SERRANO JAMES P, Unavailable Unavailable ARMIN RAINES MICHAEL S, Unavailable Unavailable MADDY BOOTH OMAR[facility] Unavailable Unavailable INC, [facility] Unavailable Unavailable HOSPITAL P, [facility], Unavailable Unavailable [facility] MADDY GEIGER, Unavailable Unavailable MADDY GEIGER [facility] Unavailable Unavailable GROUP PS, [facility] Un[facility] Un[facility], [facility] Un[facility] Unavailable [facility], [facility] Unavailable Unavailable MEDICAL G, [facility] Un[facility] Un[facility], [facility], [facility], [facility] ISMAEL MARLOW Unavailable Unavailable ISMAEL FAGAN JR, JR Unavailable Unavailable YOJANA GUEVARA, Unavailable Unavailable YOJANA GUEVARA [facility] Unavailable Unavailable SERVICES, [facility] MAHESH BELL, Unavailable Unavailable MAHESH BELL [facility] Unavailable Unavailable PSC, [facility] NANDO PEREZ, Unavailable Unavailable [facility], Unavailable Unavailable PLL[facility], [facility] Unavailable Unavailable LAB, [facility]WS[facility] MAR, PAWSAT Unavailable Unavailable [facility] Unavailable Unavailable [facility], [facility] Un[facility] Un[facility]IP[facility], [facility] Unavailable Unavailable EMERGENCY PHYS, [facility], Unavailable Unavailable [facility], Unavailable Unavailable [facility], Unavailable Unavailable . [facility] TYESHA SR, Unavailable Unavailable REMBERTO OLMSTEAD, Unavailable Unavailable REMBERTO ARAMBULA [facility], Unavailable Unavailable [facility] Purpose Continuity of Care Document - 03-02-2008 through 2016 Problems Code Diagnosis DOS Provider Status [id number] CHRONIC 08-31-2017 [place] [facility] CONGESTIVE INC HEART FAILURE I509 HEART 08-31-2017 [facility] FAILURE MEDICAL UNSPECIFIED IMAGING ASS N183 CHRONIC 08-31-2017 [place] [facility] DISEASE INC STAGE 3 MODERATE R531 WEAKNESS 08-31-2017 [facility] INC [id number] UNSPECIFIED 08-28-2017 [facility] ASTHMA HOME WITH ACUTE MEDICAL EXACERBATIO EQUIPME N Z950 PRESENCE OF 08-26-2017 [facility] CARDIAC PHYSICIANS PACEMAKER GROUP I119 HYPERTENSIV 08-24-2017 [facility] E HEART PHYSICIANS DISEASE GROUP WITHOUT HEART FAILURE I4891 UNSPECIFIED 08-24-2017 [facility] ATRIAL PHYSICIANS FIBRILLATIO GROUP N R0602 SHORTNESS 08-24-2017 [facility] OF BREATH PHYSICIANS GROUP I10 ESSENTIAL 08-13-2017 [facility] PRIMARY PHYSICIANS HYPERTENSIO GROUP N I517 CARDIOMEGAL 08-13-2017 [facility] Y PHYSICIANS GROUP E785 HYPERLIPIDE 08-12-2017 [facility] SHERYL PHYSICIANS UNSPECIFIED GROUP I110 HYPERTENSIV 08-12-2017 [facility] HEART PHYSICIANS, DISEASE PLLC WITH HEART FAILURE I2510 ASHD [place] 08-12-2017 [facility] 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 INJURY OF JESSE HEAD PARTHA INITIAL ENCOUNTER Z5006CG CONTUSION 07-17-2017 ST. OF LEFT JESSE FOREARM PARTHA INITIAL ENCOUNTER E28604G LACERATION 07-17-2017 ST. W/O FOREIGN JESSE BODY LT PARTHA FOREARM INITIAL E65560 OTHER LONG 07-17-[address] JESSE CURRENT [facility]A DRUG THERAPY Z9181 HISTORY OF 07-17-2017 ST. [place] JESSE PARTHA E875 HYPERKALEMI 07-06-2017 [facility] A [facility] D649 ANEMIA 07-02-2017 [facility] UNSPECIFIED [facility] INC K219 GASTRO-ESOP 07-02-2017 [facility] H REFLUX [facility] DISEASE INC WITHOUT ESOPHAGITIS L10936 UNSPECIFIED 06-28-2017 [facility] UNCOMPLICAT [facility] ED R062 WHEEZING 06-16-2017 [facility] R918 OTHER 06-16-2017 [place] NONSPECIFIC MEDICAL ABNORMAL IMAGING ASS FINDING OF LUNG FIELD R0600 DYSPNEA 06-01-2017 [facility] UNSPECIFIED [facility] INC I351 NONRHEUMATI 04-27-2017 [facility] C AORTIC PHYSICIANS VALVE GROUP INSUFFICIEN CY R296 REPEATED 04-27-2017 [facility] FALLS PHYSICIANS GROUP R5383 OTHER 04-27-2017 [facility] FATIGUE PHYSICIANS GROUP H98534 PAIN IN 04-23-2017 [place] LEFT ARM MEDICAL IMAGING ASS S66270 PAIN IN 04-23-2017 [facility] LEFT UPPER [facility] ARM INC R2232 LOCALIZED 04-23-2017 [facility] SWELLING [facility] MASS AND INC LUMP LEFT UPPER LIMB R600 LOCALIZED 04-23-2017 [place] EDEMA MEDICAL IMAGING ASS C8597 NON-HODGKIN 04-20-2017 [facility]OMA [facility] UNSPECIFIED INC SPLEEN I272 OTHER 04-20-2017 [facility] PULMONARY INC HYPERTENSIO N Q50233 OTHER 04-20-2017 [facility] INC UNSPECIFIED SHOULDER R001 BRADYCARDIA 04-20-2017 [facility] PHYSICIANS UNSPECIFIED GROUP R002 PALPITATION 04-20-2017 [facility] S PHYSICIANS GROUP C8590 NON-HODGKIN 03-22-2017 [place] LYMPHOMA MEDICAL UNS IMAGING ASS UNSPECIFIED SITE I209 ANGINA 03-16-2017 [facility] PECTORIS [facility] UNSPECIFIED INC I208 OTHER FORMS 03-10-2017 [facility] OF ANGINA [facility] PECTORIS INC N46013 PERSONAL 02-26-2017 [place] [facility] THROMBOSIS& EMBOLISM C67588 ACUTE EMBO 02-23-2017 [facility] THROMB UNS PHYSICIANS DEEP VEINS GROUP UNS LOW EXTREM R42 DIZZINESS 02-23-2017 [facility] AND PHYS[facility]IANS GIDDINESS GROUP I499 CARDIAC 02-03-2017 [facility] ARRHYTHMIA [facility] P B44063 SPONDYLOSIS 02-03-2017 [place] W/O MEDICAL MYELOPATH/R IMAGING ASS ADICULOPATH Y CERV RGN V55814 OTHER 02-03-2017 [place] CERVICAL MEDICAL DISC IMAGING ASS DEGENERATIO N AT C5-C6 LEVEL V53315 OTHER 02-03-2017 [place] CERVICAL MEDICAL DISC IMAGING ASS DEGENERATIO N AT C6-C7 LEVEL M542 CERVICALGIA 02-03-2017 [facility] M545 LOW BACK 01-13-2017 [facility] PAIN [facility] INC Z8673 PERSONAL HX 01-13-2017 [facility] TIA & [facility] CEREB INC INFARCT NO RESID DEFICIT A40104 PAIN IN 01-05-2017 [place] LEFT HIP MEDICAL IMAGING ASS E17709H FRACTURE 01-05-2017 [facility] MEDICAL [facility] LT IMAGING ASS PUBIS INIT ENC CLOS FX [id number] OTHER SPEC 01-05-2017 [facility] FX LT PUBIS PHYSICIANS, INITIAL PLLC CLOS FRACTURE J209 ACUTE 11-30-2016 ISMAEL JR BRONCHITIS UNSPECIFIED Z6830 BODY MASS 11-30-2016 ISMAEL JR INDEX BMI 30.0-30.9 ADULT H903 SENSORINEUR 08-04-2016 [place] [facility] [place] HEARING AND THROAT LOSS BILATERAL H905 UNSPECIFIED 08-04-2016 [facility] AL HEARING LOSS D539 NUTRITIONAL 06-08-2016 [facility] ANEMIA HEALTH UNSPECIFIED CAMPUS D62 ACUTE 06-08-2016 [facility] POSTHEMORRH HEALTH AGIC ANEMIA CAMPUS R410 DISORIENTAT 06-08-2016 [facility] ION HEALTH UNSPECIFIED CAMPUS M76265O FX UNS PART 06-08-2016 [facility] FEMUR CAMPUS SUBSQT CLOS FX RTN H83916 PRESENCE OF 06-08-2016 [facility] 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[facility] ARTIFICIAL CAMPUS HIP JOINT M659 SYNOVITIS 04-27-2016 [facility] & TENOSYNOVIT DUBILIER IS UNSPECIFIED R2242 LOCALIZED 04-27-2016 [place] SWELLING MEDICAL MASS AND IMAGING ASS LUMP LEFT LOWER LIMB Z650NPR INFECTION 04-27-2016 [facility] FOLLOWING [facility] PROCEDURE INC INITIAL ENCOUNTER Z4889 ENCOUNTER 04-27-2016 [facility] FOR OTHER [facility] SPECIFIED INC SURGICAL AFTERCARE Z471 AFTERCARE 04-23-2016 [place] FOLLOWING MEDICAL JOINT IMAGING ASS REPLACEMENT SURGERY Z7401 BED 04-09-2016 [facility] AMBULANCE STATUS SERVICE I129 HYPERTENSIV 04-05-2016 [facility] Johnson CKD [facility] W/STAGE 1-4 HOSPITAL P CKD OR UNS CKD Q34592 ASHD [place] 04-05-2016 [facility] W/UNS INC ANGINA PECTORIS D94910 PAIN IN 04-05-2016 [place] LEFT THIGH MEDICAL IMAGING ASS N179 ACUTE 04-05-2016 [place] [facility] P UNSPECIFIED R079 CHEST PAIN 04-05-2016 [place] UNSPECIFIED MEDICAL IMAGING ASS S63708G FX UNS PART 04-05-2016 [facility] NECK LT PHYSICIANS, FEMUR PLLC INITIAL ENC CLOS FX D46346K UNS 04-05-2016 [place] INTRACAPSUL MEDICAL AR FX LT IMAGING ASS FEMUR INIT ENC CLOS FX [id number] UNSPECIFIED 04-05-2016 [facility] FALL PHYSICIANS INITIAL GROUP ENCOUNTER Z9889 OTHER 04-05-2016 [place] SPECIFIED MEDICAL POSTPROCEDU IMAGING ASS [facility] STATES R0781 PLEURODYNIA 03-30-2016 [place] MEDICAL IMAGING ASS R0789 OTHER CHEST 03-30-2016 [facility] PAIN PHYSICIANS, PLLC R911 SOLITARY 03-30-2016 [place] PULMONARY MEDICAL NODULE IMAGING ASS R1031 RIGHT LOWER 03-23-2016 [facility]ANT PHYSICIANS PAIN GROUP R197 DIARRHEA 02-25-2016 COMMUNITY UNSPECIFIED ANESTH OF THE BLUE L299 PRURITUS 02-21-2016 ISMAEL UNSPECIFIED YOJANA U91383 SPONDYLOSIS 02-21-2016 ISMAEL W/O YOJANA MYELOPATH/R ADICULPATHY LS RGN N281 CYST OF 02-21-2016 [place] KIDNEY MEDICAL ACQUIRED IMAGING ASS R1030 LOWER 02-21-2016 ISMAEL ABDOMINAL YOJANA PAIN UNSPECIFIED R312 OTHER 02-21-2016 ISMAEL MICROSCOPIC YOJANA HEMATURIA R319 HEMATURIA 02-21-2016 [place] UNSPECIFIED MEDICAL IMAGING ASS Z6833 BODY MASS 02-21-2016 ISMAEL INDEX BMI YOJANA 33.0-33.9 ADULT R05 COUGH 01-07-2016 [facility] R509 FEVER 01-07-2016 [place] UNSPECIFIED MEDICAL IMAGING ASS A084 VIRAL 12-18-2015 ISMAEL INTESTINAL YOJANA INFECTION UNSPECIFIED M150 PRIMARY 09-30-2015 [facility] GENERALIZED PHYSICIANS LA OSTEOARTHRI TIS Z23 ENCOUNTER 08-30-2015 ISMAEL FOR YOJANA IMMUNIZATIO N Z6831 BODY MASS 08-30-2015 ISMAEL INDEX BMI YOJANA 31.0-31.9 ADULT 2761 HYPOSMOLALI 08-02-2015 [facility] TY AND/OR [facility] HYPONATREMI INC A 2859 UNSPECIFIED 08-02-2015 [facility] ANEMIA [facility] INC 91596 UNS 08-02-2015 [facility] GASTRITIS&G [facility] ASTRODUODIT INC IS W/O MENTION HEMORR 70445 PAIN IN 08-02-2015 [place] JOINT MEDICAL PELVIC IMAGING ASS REGION AND THIGH 58905 OTHER 07-15-2015 [facility] DYSPNEA AND CO AMBULANCE RESPIRATORY TAXIN ABNORMALITI ES 0093 DIARRHEA OF 07-02-2015 ISMAEL PRESUMED YOJANA INFECTIOUS ORIGIN 4011 ESSENTIAL 07-02-2015 ISMAEL HYPERTENSIO YOJANA N, BENIGN 5853 CHRONIC 07-02-2015 [facility] KIDNEY YOJANA DISEASE STAGE III (MODERATE) 7242 LUMBAGO 07-02-2015 [place] [address] OTHER 07-02-2015 ISMAEL MALAISE AND YOJANA FATIGUE V8533 BODY MASS 07-02-2015 ISMAEL INDEX YOJANA 33.0-33.9 ADULT 7295 PAIN IN 06-24-2015 [place] SOFT MEDICAL TISSUES OF IMAGING ASS LIMB 7823 EDEMA 06-24-2015 [facility] 2724 OTHER AND 06-21-2015 ISMAEL UNSPECIFIED YOJANA HYPERLIPIDE SHERYL 98150 DEHYDRATION 06-21-2015 ISMAEL YOJANA 412 OLD 06-21-2015 ISMAEL MYOCARDIAL YOJANA INFARCTION 99718 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 ISMAEL NODE YOJANA DYSFUNCTION 59101 ATROPHIC 06-21-2015 ISMAEL GASTRITIS YOJANA WITHOUT MENTION OF HEMORRHAGE 37452 OTHER 06-21-2015 [place] ALTERATION [place]ICAL [place] [address] FEVER 06-21-2015 ISMAEL UNSPECIFIED YOJANA 29062 ALTERED 06-21-2015 [place] MENTAL MEDICAL STATUS IMAGING ASS 7862 COUGH 06-21-2015 [facility] V1079 PERSONAL HX 06-21-2015 ISMAEL OTH Y[facility] LYMPHATIC&H EMATOPOIETI C NEOPLASM V1254 PERSONAL HX 06-21-2015 ISMAEL TIA & CI YOJANA W/O RESIDUAL DEFICITS 5990 URINARY 06-12-2015 [facility] TRACT [facility]YSICIANS INFECTION LA SITE NOT SPECIFIED 20530 OTH & UNS E 05-28-2015 [facility] COLI [facility] INFECTION INC CLASS ELSW UNS SITE 68141 UNSPECIFIED 05-24-2015 [place] [address] GENERALIZED 05-24-2015 ISMAEL YOJANA OSTEOARTHRO SIS UNSPECIFIED SITE 7213 LUMBOSACRAL 05-24-2015 ISMAEL YOJANA SPONDYLOSIS WITHOUT MYELOPATHY V8534 BODY MASS 05-24-2015 ISMAEL INDEX YOJANA 34.0-34.9 ADULT 95260 ABDOMINAL 04-15-2015 [facility] PAIN RIGHT PHYSICIANS LOWER GROUP QUADRANT 84534 PAIN IN 03-26-2015 [facility] JOINT, [facility] SHOULDER INC REGION 51079 DIARRHEA 03-26-2015 [facility] INC 34224 OTH MALIG 03-01-2015 [place] LYMPHOMAS MEDICAL UNS SITE IMAGING ASS XTRANOD&SEBAS ID ORGN 5932 ACQUIRED 03-01-2015 [place] CYST OF MEDICAL KIDNEY IMAGING ASS 24593 ABDOMINAL 03-01-2015 [facility] PAIN, LEFT [facility] LOWER INC QUADRANT 29238 ESOPHAGEAL 01-30-2015 [facility] REFLUX PHYS SURG CTR 79478 GASTR ULCR 01-30-2015 [facility] UNS PHYS SURG ACUT/CHRN CTR W/O HEMOR PERF/OBST 5379 UNSPECIFIED 01-30-2015 [facility] DISORDER [facility]MA & OF STOMACH DUBILIER AND DUODENUM 70353 NAUSEA 01-30-2015 [facility] ALONE [facility] ANESTHESIA 96756 ABDOMINAL 01-30-2015 [facility] PAIN, [place] EPIGASTRIC ANESTHESIA 93611 NONEXUDATIV 01-29-2015 [place] 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 79261 REGULAR 01-29-2015 [place] ASTIGMATISM EYE INSTITUTE 45458 OTHER 01-25-2015 ISMAEL SPECIFIED YOJANA ERYTHEMATOU S CONDITION OTHER 460 ACUTE 12-19-2014 ISMAEL NASOPHARYNG YOJANA ITIS 53941 ASTHMA, 12-19-2014 ISMAEL UNSPECIFIED YOJANA , UNSPECIFIED STATUS 4660 ACUTE 12-16-2014 [facility] BRONCHITIS [facility] INC V8535 BODY MASS 12-07-2014 ISMA[facility] INDEX YOJANA 35.0-35.9 ADULT 4779 ALLERGIC 10-30-2014 ISMAEL RHINITIS Y[facility]JANA CAUSE UNSPECIFIED 4019 UNSPECIFIED 10-18-2014 [facility] ESSENTIAL [facility] HYPERTENSIO INC N 42009 COR 10-18-2014 [facility] ATHEROSLERO [facility] UNSPEC INC TYPE VESSEL [place]/MORRO T 63914 CHEST PAIN 10-18-2014 [place] [facility] U[facility]PECIFIED SERV [facility]OUND[facility] 77761 CORONARY 10-11-2014 [facility] [place] [facility] G CORONARY ARTERY 7851 PALPITATION 10-11-2014 [facility] MEDICAL G 56080 PRECORDIAL 10-11-2014 [facility] MEDICAL G 4610 ACUTE 10-01-2014 ISMAEL MAXILLARY [facility]NA SINUSITIS 4720 CHRONIC 10-01-2014 ISMAEL RHINITIS YOJANA 7881 DYSURIA 10-01-2014 ISMAEL YOJANA 86096 SHORTNESS 09-18-2014 [place] OF BREATH MEDICAL IMAGING ASS 4139 OTHER AND 09-12-2014 [facility] UNSPECIFIED [facility] ANGINA INC PECTORIS 5758 OTHER 09-12-2014 [facility] SPECIFIED [facility] DISORDER OF INC GALLBLADDER 18148 OTHER 09-12-2014 [facility] CONVULSIONS [facility] INC 96546 OTHER CHEST 09-12-2014 [facility] EMERGENCY PHYS V140 PERSONAL 09-12-2014 [facility] HISTORY OF [facility] ALLERGY TO [facility] P PENICILLIN V148 PERSONAL 09-12-2014 [facility] HISTORY [facility] SPE[facility] MEDICINAL AGTS V1582 PERS HX 09-12-2014 [facility] TOBACCO USE [facility] PRESENTING INC HAZARDS HE[facility] V719 OBSERVATION 09-12-2014 [place] FOR MEDICAL UNSPECIFIED IMAGING ASS SUSPECTED CONDITION 62883 UNSPEC 08-28-2014 ISMAEL DISORDERS YOJANA BURSAE&TEND ONS SHOULDER REGION 56811 CONTUSION 08-28-2014 ISMAEL OF SHOULDER YOJANA REGION E8889 UNSPECIFIED 08-28-2014 [facility] FALL Y[facility] V0481 NEED 08-28-2014 [facility] PROPHYLACTI YJOANA C VACCINATION &INOCULATIO N FLU 9592 INJURY 08-19-2014 ST. OTHER&UNSPE JESSE CIFIED PARTHA SHOULDER&UP PER ARM V5869 LONG-TERM 08-19-2014 ST. (CURRENT) JESSE USE OF PARTHA OTHER MEDICATIONS 2767 HYPERPOTASS 08-14-2014 IS[facility]EL EMIA YOJANA 7291 UNSPECIFIED 08-06-2014 [facility] MYALGIA [facility] AND MYOSITIS 7827 SPONTANEOUS 08-06-2014 ISMAEL ECCHYMOSES YOJANA 40224 DIVERTICULI 07-24-2014 ISMAEL TIS OF [facility]NA COLON 7243 SCIATICA 07-16-2014 [facility] HOSP INC 5693 HEMORRHAGE 05-21-2014 ISMAEL OF RECTUM Y[place]JANA AND ANUS 7802 SYNCOPE AND 05-21-2014 [facility] COLLAPSE [facility]NA 5589 OTH&UNSPEC 05-09-2014 [place] NONINFECTIO [facility] P GASTROENTER ITIS&COLITI S 77418 NAUSEA WITH 05-09-2014 [place] VOMITING [facility] P E9390 ANTIDEPTSSN 05-09-2014 [facility] T CAUS [facility] P EFFECT THERAPEUTIC USE 02294 OTHER 05-08-2014 [facility] SPECIFIED N EMERGENCY CARDIAC PHYS DYSRHYTHMIA S 5789 UNSPECIFIED 05-08-2014 ISMAEL HEMORRHAGE Y[place]NA OF GASTROINTES TINAL TRACT 7852 UNDIAGNOSED 05-08-2014 [place] [facility] CARDIAC SERV MUR[place]URS FOUNDATIO 496 CHRONIC 03-06-2014 [place] AIRWAY MEDICAL OBSTRUCTION IMAGING ASS NEC 5110 PLEURISY 03-06-2014 IS[facility] WITHOUT YOJANA MENTION EFFUS/CURRE NT TB 7197 DIFFICULTY 03-06-2014 [place] IN WALKING MEDICAL IMAGING ASS 74817 CONTUSION 03-06-2014 ISMAEL OF FOOT YOJANA 8488 OTHER 02-26-2014 [facility] SPECIFIED N EMERGENCY SITES OF PHYS SPRAINS AND STRAINS V141 PERSONAL 02-26-2014 [facility] MEM HOSP ALLERGY INC OTHER ANTIBIOTIC AGENT 51517 UNSPECIFIED 01-26-2014 [facility]ENCY INFECTION PHYS IN CCE & UNS SITE 7245 UNSPECIFIED 01-26-[facility] PH[facility] 0091 COLITIS 01-04-2014 [facility] ENTERIT&GAS HOME TROENTERIT MEDICAL INF ORIGIN EQUIPME 436 ACUTE BUT 01-04-2014 [facility] ILL-DEFINED HOME MEDICAL CEREBROVASC EQUIPME ULAR DISEASE 7231 CERVICALGIA 10-24-2013 [facility] HOS[facility] INC 3674 PRESBYOPIA 07-03-2013 [facility] V431 LENS 07-03-2013 [place] REPLACED BY EYE OTHER INSTITUTE MEANS 7224 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-30-2013 [place] 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 80242 MACULAR 04-04-2013 [facility] DEGENERATIO DON N OF RETINA UNSPECIFIED 47658 STRABISMIC 03-22-2013 [place] [facility] AMBLYOPIA SERV FOUNDATIO 51932 OTHER 03-22-2013 [place] [facility] VITREOUS SERV OPACITIES FOUNDATIO 8052 CLOS FX 02-27-2013 [facility] DORS DON VERTEBRA W/O MENTION SP CORD INJURY 89152 LEUKOCYTOSI 02-23-2013 [facility] EMERGENCY UNSPECIFIED SERVICES V5878 AFTERCARE 02-23-2013 [facility] EMERGENCY SURGERY SERVICES MUSCULOSKEL SYSTEM NEC 95725 ACUTE PAIN 02-22-2013 [place] DUE TO EMERGENCY TRAUMA SERVICES 77706 PATHOLOGIC 02-22-2013 [place] FRACTURE OF ANESTHESIA VERTEBRAE GROUP PS V7283 OTHER 02-21-2013 [facility] [place] SPECIFIED RADIOLOGY PRE-OPERATI VE EXAMINATION 07313 DISPLCMT 02-20-2013 [facility] LUMBAR MEDICAL INTERVERT IMAGING ASS DISC W/O MYELOPATHY 59549 SPINAL STEN 02-20-2013 [place] [facility] LUMB REG MEDICAL W/O IMAGING ASS NEUROGENIC CLAUDICATIO N E8888 OTHER FALL 02-20-2013 [place] [facility] 6259 UNSPEC 02-15-2013 [facility]MPTOM [facility]ICAL ASSOC IMAGING ASS W/FEMALE GENITAL ORGANS 7840 HEADACHE 02-15-2013 [facility] 8470 NECK SPRAIN 02-15-2013 [facility] 8472 LUMBAR 02-15-2013 [facility] 8500 CONCUSSION 02-15-2013 [facility] WITH NO EMERGENCY LOSS OF SERVICES CONSCIOUSNE SS 9222 CONTUSION 02-15-2013 [facility] OF [facility]Y ABDOMINAL SERVICES WALL 04811 CONTUSION 02-15-2013 [facility] 79698 HEAD 02-15-2013 [facility] INJURY, MEDICAL UNSPECIFIED IMAGING ASS V4364 HIP JOINT 02-15-2013 [facility] REPLACEMENT MEDICAL BY OTHER IMAGING ASS MEANS 4659 ACUTE URIS 02-13-2013 [facility] OF [facility] UNSPECIFIED SITE 7804 DIZZINESS 02-13-2013 [facility] AND [facility] GIDDINESS 53969 PAIN IN 01-18-2013 [facility] JOINT, [facility] MULTIPLE INC SITES 49108 PAIN IN 01-17-2013 [facility] JO[facility], DON LOWER LEG 9597 INJURY 01-17-2013 [facility] OTHER&UNSPE DON CIFIED KNEE LEG ANKLE&FOOT 47969 UNSPECIFIED 12-27-2012 [place] [facility] [place] [address] METHICILLIN 12-23-2012 [facility]ANT [facility] STAPHYLOCOC INC CUS AUREUS 47709 OTHER 12-23-2012 [facility] DISEASES OF [facility] NASAL INC CAVITY AND SINUSES 66394 NASAL 12-06-2012 [facility] MUCOSITIS DON ULCERATIVE 7078 CHRONIC 12-06-2012 [facility] ULCER OF [facility] OTHER INC SPECIFIED SITE 3804 IMPACTED 08-03-2012 [facility] CERUMEN [place] 36929 CHRONIC 08-03-2012 [facility] FATIGUE DON SYNDROME 82477 OTHER 06-22-2012 [facility] CHRONIC DON PAIN 7873 FLATULENCE 06-17-2012 [facility] ERUCTATION DON AND GAS PAIN 23535 OTHER 06-03-2012 [facility] SPECIFIED DON TYPES OF CYSTITIS 4293 CARDIOMEGAL 05-14-2012 [facility] 25063 NONSPECIFIC 05-14-2012 [facility] EM[facility]GENC[facility] ELECTROCARD SERVICES IOGRAM V1090 PERSONAL 05-14-2012 [facility] HISTORY MEDICAL UNSPECIFIED IMAGING ASS MALIGNANT NEOPLASM V711 OBSERVATION 05-14-2012 [facility] FOR MEDICAL SUSPECTED IMAGING ASS MALIGNANT NEOPLASM OTHER 04-28-2012 [facility] 3898 OTHER 02-17-2012 [facility] SPECIFIED DON FORMS OF HEARING LOSS 31258 GASTROJEJ 02-17-2012 [facility] ULCR UNS DON ACUT/CHRN W/O HEMOR PERF/OBST 53072 PAIN IN 01-06-2012 [facility] JOINT, SITE [facility] INC UNSPECIFIED 6160 CERVICITIS 12-16-2011 [facility] AND MEDICAL ENDOCERVICI IMAGING ASS TIS 6203 ACQUIRED 12-16-2011 [facility] ATROPHY OF MEDICAL OVARY AND IMAGING ASS FALLOPIAN TUBE 6219 UNSPECIFIED 12-16-2011 [facility] DISORDER MEDICAL OF UTERUS IMAGING ASS 57316 OSTEOARTHRO 12-11-2011 [facility] S INVLV MX DON [place] [address]70 HEMATURIA 11-30-2011 [facility] UNSPECIFIED DON 97117 OTHER 11-30-2011 [facility] SPECIFIED DON DISORDERS OF URINARY TRACT 93622 UNSPECIFIED 10-19-2011 [facility] OTALGIA DON 37557 MUSCLE 10-19-2011 [facility] WEAKNESS DON (GENERALIZE D) 28735 DIVERTICULO 07-22-2011 [facility] SIS OF DON COLON 1104 DERMATOPHYT 07-10-2011 [facility] OSIS OF FOOT 9168 OTH&UNS SUP 07-07-2011 [facility] INJR HIP DON THI LEG&ANK W/O MENTION INF 9190 ABRASION/FR 06-26-2011 [facility] OTH MX&UNS SERVICES SITE W/O INF 5950 ACUTE 05-28-2011 [facility] CYSTITIS [facility] 6929 CONTACT 05-22-2011 [facility] DERMATITIS& OTHER ECZEMA DUE UNSPEC CAUSE 7011 ACQUIRED 05-22-2011 [facility] KERATODERMA 30953 OTHER 04-20-2011 [facility] SPECIFIED DON CIRCULATORY SYSTEM DISORDERS 29320 CONTUSION 04-20-2011 [facility] MULTIPLE DON SITES SHOULDER&UP PER ARM 5952 OTHER 02-05-2011 [facility] CYSTITIS [facility] P 1129 CANDIDIASIS 01-07-2011 [facility] OF DON UNSPECIFIED SITE 4280 CONGESTIVE 01-07-2011 [facility] HEART DON FAILURE UNSPECIFIED 2768 HYPOPOTASSE 12-31-2010 [facility] 8910 OPEN WOUND 10-22-2010 [facility] KNEE DON LEG&ANK WITHOUT MENTION COMP V5832 ENCOUNTER 10-22-2010 [facility] FOR REMOVAL DON OF SUTURES 90131 PHACOLYTIC 08-06-2010 [facility] 4618 OTHER ACUTE 07-29-2010 [facility] SINUSITIS DON 1880 MALIGNANT 06-26-2010 [place] NEOPLASM OF H UROLOGY [facility] URINARY BLADDER 05722 SPASM OF 06-06-2010 [facility] MUSCLE DON 96004 DEGEN 05-04-2010 [facility] LUMBAR/LUMB EMERGENCY OSACRAL SERVICES [facility] RAL DISC OTHER MALIG 04-22-2010 NEW LYMPHOMAS [facility] LYMPH NODES [facility] MULTIPLE SITES V6709 FOLLOW-UP 01-17-2010 [place] [facility] EXAMINATION AND HAND FOLLOWING SURGEONS OTHER [facility] SURGERY 6256 FEMALE 01-13-2010 [facility], STRESS DON R INCONTINENC E V7651 SPECIAL 01-13-2010 [facility], SCREENING DON R FOR MALIGNANT NEOPLASMS COLON 1629 MALIGNANT 09-09-2009 [place] NEOPLASM [facility] UNSPEC ASSOCIATES SITE 4148 OTHER SPEC 08-30-2009 [facility], FORMS DON R CHRONIC ISCHEMIC HEART DISEASE 8208 CLOSED 08-30-2009 [facility], FRACTURE DON R UNSPECIFIED PART NECK FEMUR 67164 POSTPROCEDU 08-21-2009 [facility] PROF SERV 27780 OTHER 08-20-2009 PATHOLOGY & CLOSED CYTOLOGY TRANSCERVIC LAB AL FRACTURE OF FEMUR 25612 INF DUE OTH 08-19-2009 [facility] GM-NEGATIVE INC ORGANISMS CCE & UNS SITE 27613 ABDOMINAL 08-19-2009 [facility] OTHER EMERGENCY SPECIFIED SERVICES SITE ASSOCIATES 06922 CLOSED 08-19-2009 [facility] DISLOCATION AMBULANCE OF HIP SERVICE UNSPECIFIED SITE 9596 INJURY 08-19-2009 [facility] OTHER AND AMBULANCE UNSPECIFIED SERVICE HIP AND THIGH E8859 FALL FROM 08-19-2009 [place] OTHER EMERGENCY SLIPPING SERVICES TRIPPING OR ASSOCIATES STAMY 67703 UNSPECIFIED 08-14-2009 [place] [facility] OPACITY FOUNDATIO V0382 NEED PROPH 07-31-2009 [facility], VACCINATION DON R AGAINST STREP PNEUMONE 75002 SPRAIN AND 06-10-2009 [facility], STRAIN OF DON R UNSPECIFIED SITE OF WRIST 49792 UNSPECIFIED 06-10-2009 [facility] SITE OF DON R ANKLE SPRAIN AND STRAIN E8490 PLACE OF 06-07-2009 [place] OCCURRENCE, MEDICAL HOME IM[facility] E8844 ACCIDENTAL 06-07-2009 [facility] FALL FROM EMERGENCY BED SERVICES [facility] 53677 SECONDARY 09-19-2008 [facility] EDEMA FOUNDATIO 54398 SPONDYLOSIS 08-22-2008 NEW UNSPEC [facility] SITE W/O CLINIC PSC MENTION MYELOPATHY V1072 PERSONAL 08-22-2008 NEW [facility] OF [facility] PSC DISEASE 08942 ATRIAL 07-01-2008 [facility] N 21345 ABDOMINAL/P 07-01-2008 [facility] SWELLING MASS/LUMP UNSPEC SITE 03458 UNSPECIFIED 03-02-2008 [facility] OSTEOPOROSI S Procedures Procedure DOS Code Location Performer Comment REPLACEME [id number] [facility] NT LT HIP 6 [facility] JOINT INC INC CERAMIC POLY SYNTH OPEN PARTIAL 8152 [facility] HIP 9 [facility] REPLACEME INC INC NT HIP 0074 [facility] BEARING 9 [facility] SURFACE INC INC METAL-ON- POLYETHYL [place] Encounters Encounter Start End Date Code Location Performer Type Date HOSPITAL [facility] - 7 7 [facility] ACCESS 7 7 [facility] - OTHER 7 7 [facility] OTHER 7 7 [facility] - 7 7 [facility] - 7 7 [facility] - 7 7 [facility] - 7 7 [facility] - 7 7 [facility] - 7 7 [facility] - 7 7 [facility] - 7 7 [facility] - 7 7 [facility] - 7 7 [facility] - 7 7 [facility] - 7 7 [facility] - 7 7 [facility] - OTHER 7 7 [facility] - 7 7 [facility] INPATIENT 6 6 [facility] INPATIENT 6 6 [facility] - 6 6 [facility]PATIENT 6 6 [facility] - 6 6 [facility] - 6 6 [facility] - 6 6 [facility] - 6 6 [facility] - 5 5 [facility] - 5 5 [facility] - OTHER 5 5 [facility] - OTHER 5 5 [facility] - 5 5 [facility] - 5 5 [facility] - 5 5 [facility] - OTHER 5 5 [facility] - OTHER 5 5 [facility] - OTHER 5 5 [facility] - 5 5 [facility] - OTHER 5 5 [facility] - 4 4 [facility] - 4 4 [facility] - [address] [facility] ACCESS 4 4 [facility] - OTHER 4 4 [facility] - 4 4 [facility] - OTHER 4 4 [facility] - 4 4 [facility] - 4 4 [facility] - 4 4 [facility] - OTHER 4 4 [facility] - 3 3 [facility] - 3 3 [facility] - 3 3 [facility] - 3 3 [facility] - 3 3 [facility] - 3 3 [facility] - 3 3 [facility] - 3 3 [facility] - 3 3 [facility] - 3 3 [facility] - 3 3 [facility] - 3 3 [facility] - 3 3 [facility] - 3 3 [facility] - 3 3 [facility] - 2 2 [facility] - 2 2 [facility] - 2 2 [facility] 1 [facility] 1 1 [facility] 0 [facility] 0 [facility] 0 [facility] - 0 0 [facility] 0 0 [facility] - 9 9 [facility] - 9 9 [facility] - 9 9 [facility] 9 [facility] 9 [facility] [place] [id number] [facility]
--- OUTSIDE RECORDS SUMMARY | 2017-10-11 13:52 | External Medical Summary Rpt | CCD ---
Author Author , KARLIE Organization KARLIE Address Unknown Phone [email or web address] Care Team Providers Care Gastroenterology Nurse Name Role Phone [employer] Unavailable Unavailable INC, [employer] [facility] Un[facility] Unavailable [facility], [facility] Unavailable Unavailable SERVICE, [facility] Unavailable Unavailable SERVICE, [facility] Unavailable Unavailable CAMPUS, [facility] Unavailable Unavailable [facility], [facility] [place] [facility] Unavailable Unavailable [facility], [facility] Unavailable Unavailable DUBILIER, [facility], Unavailable Unavailable [facility] Unavailable Unavailable [place], [facility] Unavailable Unavailable PSC, [facility] Unavailable Unavailable THE [facility], [facility] MARTINE LIANG, Unavailable Unavailable MARTINE LIANG DOUGLAS, Unavailable Unavailable DEAN SERRANO JAMES P, Unavailable Unavailable ARMIN RAINES MICHAEL S, Unavailable Unavailable MADDY BOOTH [facility] Unavailable Unavailable INC, [facility] Unavailable Unavailable HOSPITAL P, [facility], Unavailable Unavailable [facility] MADDY GEIGER, Unavailable Unavailable MADDY GEIGER [facility] Unavailable Unavailable GROUP PS, [facility] Un[facility] Unavailable [facility], [facility] Unavailable Unavailable [facility]ING [facility], [facility] Unavailable Unavailable MEDICAL G, [facility] Un[facility] Un[facility], [facility] Un[facility] Un[facility], [facility], [facility] ISMAEL MARLOW Unavailable Unavailable ISMAEL FAGAN JR, JR Unavailable Unavailable YOJANA GUEVARA, Unavailable Unavailable YOJANA GUEVARA [facility] Unavailable Unavailable SERVICES, [facility] MAHESH BELL, Unavailable Unavailable MAHESH BELL [facility] Unavailable Unavailable PSC, [facility] NANDO PEREZ, Unavailable Unavailable [facility], Unavailable Unavailable PLL[facility], [facility] Unavailable Unavailable LAB, [facility], PAWSAT Unavailable Unavailable [facility] Unavailable Unavailable [facility], [facility] Unavailable Unavailable E[facility]IP[facility], [facility] Unavailable Unavailable EMERGENCY PHYS, [facility] EMERGENCY PHYS [facility], Unavailable Unavailable [facility], Unavailable Unavailable [facility], Unavailable Unavailable . [facility] TYESHA SR, Unavailable Unavailable REMBERTO OLMSTEAD, Unavailable Unavailable REMBERTO ARAMBULA [facility], Unavailable Unavailable [facility] Purpose Continuity of Care Document - 03-02-2008 through 2016 Problems Code Diagnosis DOS Provider Status [id number] CHRONIC 08-31-2017 [facility] CONGESTIVE INC HEART FAILURE I509 HEART 08-31-2017 [place] FAILURE MEDICAL UNSPECIFIED IMAGING ASS N183 CHRONIC 08-31-2017 [facility] KIDNEY [facility] DISEASE INC STAGE 3 MODERATE R531 WEAKNESS 08-31-2017 [facility] INC R37990 UNSPECIFIED 08-28-2017 [facility] ASTHMA HOME WITH ACUTE MEDICAL EXACERBATIO EQUIPME N Z950 PRESENCE OF 08-26-2017 [facility] CARDIAC PHYSICIANS PACEMAKER GROUP I119 HYPERTENSIV 08-24-2017 [facility] E HEART PHYSICIANS DISEASE GROUP WITHOUT HEART FAILURE I4891 UNSPECIFIED 08-24-2017 [facility] ATRIAL PHYSICIANS FIBRILLATIO GROUP N R0602 SHORTNESS 08-24-2017 [facility] OF BREATH PHYSICIANS GROUP I10 ESSENTIAL 08-13-2017 [facility] PRIMARY PHYSICIANS HYPERTENSIO GROUP N I517 CARDIOMEGAL 08-13-2017 [facility] Y PHYSICIANS GROUP E785 HYPERLIPIDE 08-12-2017 [facility] SHERYL PHYSICIANS UNSPECIFIED GROUP I110 HYPERTENSIV 08-12-2017 [facility] HEART PHYSICIANS, DISEASE PLLC WITH HEART FAILURE 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 INJURY OF JESSE HEAD PARTHA INITIAL ENCOUNTER [id number] CONTUSION 07-17-2017 ST. OF LEFT JESSE FOREARM PARTHA INITIAL ENCOUNTER [id number] LACERATION 07-17-2017 ST. W/O FOREIGN JESSE BODY LT PARTHA FOREARM INITIAL G52496 OTHER LONG 07-17-[address] JESSE CURRENT PARTHA DRUG THERAPY Z9181 HISTORY OF 07-17-2017 ST. FALLING JESSE PARTHA E875 HYPERKALEMI 07-06-2017 [facility] A [facility] D649 ANEMIA 07-02-2017 [facility] UNSPECIFIED [facility] INC K219 GASTRO-ESOP 07-02-2017 [facility] H REFLUX [facility] DISEASE INC WITHOUT ESOPHAGITIS Q43690 UNSPECIFIED 06-28-2017 [facility] UNCOMPLICAT [facility] ED R062 WHEEZING 06-16-2017 [facility] R918 OTHER 06-16-2017 [place] NONSPECIFIC MEDICAL ABNORMAL IMAGING ASS FINDING OF LUNG FIELD R0600 DYSPNEA 06-01-2017 [facility] UNSPECIFIED [facility] INC I351 NONRHEUMATI 04-27-2017 [facility] C AORTIC PHYSICIANS VALVE GROUP INSUFFICIEN CY R296 REPEATED 04-27-2017 [facility] FALLS PHYSICIANS GROUP R5383 OTHER 04-27-2017 [facility] FATIGUE PHYSICIANS GROUP Q27322 PAIN IN 04-23-2017 [place] LEFT ARM MEDICAL IMAGING ASS D35270 PAIN IN 04-23-2017 [facility] LEFT UPPER [facility] ARM INC R2232 LOCALIZED 04-23-2017 [facility] SWELLING [facility] MASS AND INC LUMP LEFT UPPER LIMB R600 LOCALIZED 04-23-2017 [place] EDEMA MEDICAL IMAGING ASS C8597 NON-HODGKIN 04-20-2017 [facility] LYMPHOMA [facility] UNSPECIFIED INC SPLEEN I272 OTHER 04-20-2017 [facility] SECONDARY [facility] PULMONARY INC HYPERTENSIO N T17551 OTHER 04-20-2017 [facility] INC UNSPECIFIED SHOULDER R001 BRADYCARDIA 04-20-2017 [facility] PHYSICIANS UNSPECIFIED GROUP R002 PALPITATION 04-20-2017 [facility] S PHYSICIANS GROUP C8590 NON-HODGKIN 03-22-2017 [place] LYMPHOMA MEDICAL UNS IMAGING ASS UNSPECIFIED SITE I209 ANGINA 03-16-2017 [facility] PECTORIS [facility] UNSPECIFIED INC I208 OTHER FORMS 03-10-2017 [facility] OF ANGINA [facility] PECTORIS INC T75568 PERSONAL 02-26-2017 [place] [facility] THROMBOSIS& EMBOLISM G06638 ACUTE EMBO 02-23-2017 [facility] THROMB UNS PHYSICIANS DEEP VEINS GROUP UNS LOW EXTREM R42 DIZZINESS 02-23-2017 [facility] AND PHYSICIANS GIDDINESS GROUP I499 CARDIAC 02-03-2017 [facility] ARRHYTHMIA [facility] P E17881 SPONDYLOSIS 02-03-2017 [place] W/O MEDICAL MYELOPATH/R IMAGING ASS ADICULOPATH Y CERV RGN C63720 OTHER 02-03-2017 [place] CERVICAL MEDICAL DISC IMAGING ASS DEGENERATIO N AT C5-C6 LEVEL Z85534 OTHER 02-03-2017 [place] CERVICAL MEDICAL DISC IMAGING ASS DEGENERATIO N AT C6-C7 LEVEL M542 CERVICALGIA 02-03-2017 [place] [facility] M545 LOW BACK 01-13-2017 [facility] PAIN [facility] INC Z8673 PERSONAL HX 01-13-2017 [facility] TIA & MEM [facility] CEREB INC INFARCT NO RESID DEFICIT U46026 PAIN IN 01-05-2017 [place] LEFT HIP MEDICAL IMAGING ASS F67335G FRACTURE 01-05-2017 [facility] LT IMAGING ASS PUBIS INIT ENC CLOS FX G11678S OTHER SPEC 01-05-2017 [facility] FX LT PUBIS PHYSICIANS, INITIAL PLLC CLOS FRACTURE J209 ACUTE 11-30-2016 ISMAEL JR BRONCHITIS UNSPECIFIED Z6830 BODY MASS 11-30-2016 ISMAEL JR INDEX BMI 30.0-30.9 ADULT H903 SENSORINEUR 08-04-2016 [place] [facility] [place] HEARING AND THROAT LOSS BILATERAL H905 UNSPECIFIED 08-04-2016 [facility] AL HEARING LOSS D539 NUTRITIONAL 06-08-2016 [facility] ANEMIA HEALTH UNSPECIFIED CAMPUS D62 ACUTE 06-08-2016 [facility] POSTHEMORRH HEALTH AGIC ANEMIA CAMPUS R410 DISORIENTAT 06-08-2016 [facility] ION HEALTH UNSPECIFIED CAMPUS H27844U FX UNS PART 06-08-2016 [facility] HEALTH FEMUR CAMPUS SUBSQT CLOS FX RTN Z35192 PRESENCE OF 06-08-2016 [facility] LEFT [facility] ARTIFICIAL CAMPUS HIP JOINT M659 SYNOVITIS 04-27-2016 [facility] & TENOSYNOVIT DUBILIER IS UNSPECIFIED R2242 LOCALIZED 04-27-2016 [place] SWELLING MEDICAL MASS AND IMAGING ASS LUMP LEFT LOWER LIMB J614JUU INFECTION 04-27-2016 [facility] FOLLOWING [facility] PROCEDURE INC INITIAL ENCOUNTER Z4889 ENCOUNTER 04-27-2016 [facility] FOR OTHER [facility] SPECIFIED INC SURGICAL AFTERCARE Z471 AFTERCARE 04-23-2016 [place] FOLLOWING MEDICAL JOINT IMAGING ASS REPLACEMENT SURGERY Z7401 BED 04-09-2016 [facility] AMBULANCE STATUS SERVICE I129 HYPERTENSIV 04-05-2016 [facility] Johnson CKD [facility] W/STAGE 1-4 HOSPITAL P CKD OR UNS CKD H47038 ASHD ILIAMNA 04-05-2016 [facility] W/UNS INC ANGINA PECTORIS R03039 PAIN IN 04-05-2016 [place] LEFT THIGH MEDICAL IMAGING ASS N179 ACUTE 04-05-2016 [facility] HOSPITAL P UNSPECIFIED R079 CHEST PAIN 04-05-2016 [place] UNSPECIFIED MEDICAL IMAGING ASS Z66840L FX UNS PART 04-05-2016 [facility] NECK LT PHYSICIANS, FEMUR PLLC INITIAL ENC CLOS FX [id number] UNS 04-05-2016 [place] INTRACAPSUL MEDICAL AR FX LT IMAGING ASS FEMUR INIT ENC CLOS FX N95YOQJ UNSPECIFIED 04-05-2016 [facility] FALL PHYSICIANS INITIAL GROUP ENCOUNTER Z9889 OTHER 04-05-2016 [place] SPECIFIED MEDICAL POSTPROCEDU IMAGING ASS [facility] STATES R0781 PLEURODYNIA 03-30-2016 [place] [facility] R0789 OTHER CHEST 03-30-2016 [facility] PAIN PHYSICIANS, PLLC R911 SOLITARY 03-30-2016 [place] PULMONARY MEDICAL NODULE IMAGING ASS R1031 RIGHT LOWER 03-23-2016 [facility] QUADRANT PHYSICIANS PAIN GROUP R197 DIARRHEA 02-25-2016 [facility] UNSPECIFIED ANESTH OF THE BLUE L299 PRURITUS 02-21-2016 ISMA[facility] UNSPECIFIED YOJANA L10009 SPONDYLOSIS 02-21-2016 [facility] W/O Y[facility]NA MYELOPATH/R ADICULPATHY LS RGN N281 CYST OF 02-21-2016 [place] KIDNEY MEDICAL ACQUIRED IMAGING ASS R1030 LOWER 02-21-2016 [facility] ABDOMINAL Y[facility]JANA PAIN UNSPECIFIED R312 OTHER 02-21-2016 [facility] MICROSCOPIC Y[facility]NA HEMATURIA R319 HEMATURIA 02-21-2016 [place] UNSPECIFIED MEDICAL IMAGING ASS Z6833 BODY MASS 02-21-2016 ISMA[facility] INDEX BMI YOJANA 33.0-33.9 ADULT R05 COUGH 01-07-2016 [place] [facility] R509 FEVER 01-07-2016 [place] UNSPECIFIED MEDICAL IMAGING ASS A084 VIRAL 12-18-2015 IS[facility]EL INTESTINAL [facility] INFECTION UNSPECIFIED M150 PRIMARY 09-30-2015 [facility] GENERALIZED PHYSICIANS LA OSTEOARTHRI TIS Z23 ENCOUNTER 08-30-2015 ISAMEL FOR YOJANA IMMUNIZATIO N Z6831 BODY MASS 08-30-2015 IS[facility] INDEX BMI YOJANA 31.0-31.9 ADULT 2761 HYPOSMOLALI 08-02-2015 [facility] TY AND/OR [facility] HYPONATREMI INC A 2859 UNSPECIFIED 08-02-2015 [facility] ANEMIA [facility] INC 62624 UNS 08-02-2015 [facility] GASTRITIS&G [facility] ASTRODUODIT INC IS W/O MENTION HEMORR 58636 PAIN IN 08-02-2015 [place] JOINT MEDICAL PELVIC IMAGING ASS REGION AND THIGH 65155 OTHER 07-15-2015 [facility] DYSPNEA AND CO AMBULANCE RESPIRATORY TAXIN ABNORMALITI ES 0093 DIARRHEA OF 07-02-2015 ISMAEL PRESUMED YOJANA INFECTIOUS ORIGIN 4011 ESSENTIAL 07-02-2015 ISMAEL HYPERTENSIO YOJANA N, BENIGN 5853 CHRONIC 07-02-2015 [facility] KIDNEY Y[facility]NA DISEASE STAGE III (MODERATE) 7242 LUMBAGO 07-02-2015 [place] [address] OTHER 07-02-2015 ISMAEL MALAISE AND YOJANA FATIGUE V8533 BODY MASS 07-02-2015 ISMAEL INDEX YOJANA 33.0-33.9 ADULT 7295 PAIN IN 06-24-2015 [place] SOFT MEDICAL TISSUES OF IMAGING ASS LIMB 7823 EDEMA 06-24-2015 [place] [facility] 2724 OTHER AND 06-21-2015 ISMAEL UNSPECIFIED YOJANA HYPERLIPIDE SHERYL 89105 DEHYDRATION 06-21-2015 ISMAEL YOJANA 412 OLD 06-21-2015 [facility] MYOCARDIAL Y[facility]NA INFARCTION 92039 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 IS[facility] NODE YOJANA DYSFUNCTION 98075 ATROPHIC 06-21-2015 IS[facility] GASTRITIS YOJANA WITHOUT MENTION OF HEMORRHAGE 48936 OTHER 06-21-2015 [place] ALTERATION [place]ICAL [place] [address] FEVER 06-21-2015 ISMAEL UNSPECIFIED YOJANA 43412 ALTERED 06-21-2015 [place] MENTAL MEDICAL STATUS IMAGING ASS 7862 COUGH 06-21-2015 [place] [facility] V1079 PERSONAL HX 06-21-2015 IS[facility]EL OTH [facility] LYMPHATIC&H EMATOPOIETI C NEOPLASM V1254 PERSONAL HX 06-21-2015 IS[facility]EL TIA & CI YOJANA W/O RESIDUAL DEFICITS 5990 URINARY 06-12-2015 [facility]CT [facility]YSICIANS INFECTION LA SITE NOT SPECIFIED 38003 OTH & UNS E 05-28-2015 [facility] COLI [facility] INFECTION INC CLASS ELSW UNS SITE 37427 UNSPECIFIED 05-24-2015 [place] [address] GENERALIZED 05-24-2015 ISMAEL YOJANA OSTEOARTHRO SIS UNSPECIFIED SITE 7213 LUMBOSACRAL 05-24-2015 ISMAEL YOJANA SPONDYLOSIS WITHOUT MYELOPATHY V8534 BODY MASS 05-24-2015 ISMA[facility] INDEX YOJANA 34.0-34.9 ADULT 74410 ABDOMINAL 04-15-2015 [facility] PAIN RIGHT PHYSICIANS LOWER GROUP QUADRANT 18847 PAIN IN 03-26-2015 [facility] JOINT, [facility] SHOULDER INC REGION 28253 DIARRHEA 03-26-2015 [facility] INC 95454 OTH MALIG 03-01-2015 [place] LYMPHOMAS MEDICAL UNS SITE IMAGING ASS XTRANOD&SEBAS ID ORGN 5932 ACQUIRED 03-01-2015 [place] CYST OF MEDICAL KIDNEY IMAGING ASS 64595 ABDOMINAL 03-01-2015 [facility] PAIN, LEFT [facility] LOWER INC QUADRANT 35393 ESOPHAGEAL 01-30-2015 [facility] REFLUX PHYS SURG CTR 75674 GASTR ULCR 01-30-2015 [facility] UNS PHYS SURG ACUT/CHRN CTR W/O HEMOR PERF/OBST 5379 UNSPECIFIED 01-30-2015 [facility] DISORDER [facility] & OF STOMACH DUBILIER AND DUODENUM 89372 NAUSEA 01-30-2015 [facility] [place] ANESTHESIA 97552 ABDOMINAL 01-30-2015 [facility] PAIN, [place] EPIGASTRIC ANESTHESIA 58314 NONEXUDATIV 01-29-2015 [place] 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 95288 REGULAR 01-29-2015 [place] ASTIGMATISM EYE INSTITUTE 73582 OTHER 01-25-2015 [facility] SPECIFIED Y[facility]JANA ERYTHEMATOU S CONDITION OTHER 460 ACUTE 12-19-2014 [facility] NASOPHARYNG YO[facility]NA ITIS 86840 ASTHMA, 12-19-2014 [facility] UNSPECIFIED YOJANA , UNSPECIFIED STATUS 4660 ACUTE 12-16-2014 [facility] BRONCHITIS [facility] INC V8535 BODY MASS 12-07-2014 [facility] INDEX YOJANA 35.0-35.9 ADULT 4779 ALLERGIC 10-30-2014 [facility] RHINITIS [facility] CAUSE UNSPECIFIED 4019 UNSPECIFIED 10-18-2014 [facility] ESSENTIAL [facility] HYPERTENSIO INC N 87772 COR 10-18-2014 [facility] ATHEROSLERO [facility] UNSPEC INC TYPE VESSEL ILIAMNA/MORRO T 49228 CHEST PAIN 10-18-2014 [place] [facility]PEC[facility] [address] CORONARY 10-11-2014 [facility] OSIS ILIAMNA MEDICAL G CORONARY ARTERY 7851 PALPITATION 10-11-2014 [facility] G 82245 PRECORDIAL 10-11-2014 [facility] MEDICAL G 4610 ACUTE 10-01-2014 ISMAEL MAXILLARY [place] SINUSITIS 4720 CHRONIC 10-01-2014 ISMAEL RHINITIS YOJANA 7881 DYSURIA 10-01-2014 ISMAEL YOJANA 50322 SHORTNESS 09-18-2014 [place] OF BREATH MEDICAL IMAGING ASS 4139 OTHER AND 09-12-2014 [facility] UNSPECIFIED [facility] ANGINA INC PECTORIS 5758 OTHER 09-12-2014 [facility] SPECIFIED [facility] DISORDER OF INC GALLBLADDER 46125 OTHER 09-12-2014 [facility] CONVULSIONS [facility] INC 92907 OTHER CHEST 09-12-2014 [facility] EMERGENCY PHYS V140 PERSONAL 09-12-2014 [facility] HISTORY OF [facility] ALLERGY TO [facility] P PENICILLIN V148 PERSONAL 09-12-2014 [facility] HISTORY [facility] ALLERGY [facility] [place] P SPEC MEDICINAL AGTS V1582 PERS HX 09-12-2014 [facility] TOBACCO USE [facility] PRESENTING INC HAZARDS HEALTH V719 OBSERVATION 09-12-2014 [place] FOR MEDICAL UNSPECIFIED IMAGING ASS SUSPECTED CONDITION 08372 UNSPEC 08-28-2014 [facility] DISORDERS YOJANA BURSAE&TEND ONS SHOULDER REGION 89859 CONTUSION 08-28-2014 [facility] OF SHOULDER [place]OJANA REGION [...] MYOSITIS 7827 SPONTANEOUS 08-06-2014 [facility] ECCHYMOSES [facility] 45720 DIVERTICULI 07-24-2014 [facility] TIS OF [facility] COLON 7243 SCIATICA 07-16-2014 [facility] HOSP INC 5693 HEMORRHAGE 05-21-2014 [facility] OF RECTUM [place] AND ANUS 7802 SYNCOPE AND 05-21-2014 [facility] COLLAPSE [facility] 5589 OTH&UNSPEC 05-09-2014 [facility] GASTROENTER ITIS&COLITI S 84060 NAUSEA WITH 05-09-2014 [facility] VOMITING [facility] P E9390 ANTIDEPTSSN 05-09-2014 [facility] T CAUS [facility] P EFFECT THERAPEUTIC USE 31773 OTHER 05-08-2014 [facility] SPECIFIED N EMERGENCY CARDIAC PHYS DYSRHYTHMIA S 5789 UNSPECIFIED 05-08-2014 [facility] HEMORRHAGE [facility] OF GASTROINTES TINAL TRACT 7852 UNDIAGNOSED 05-08-2014 [facility] 496 CHRONIC 03-06-2014 [place] AIRWAY MEDICAL OBSTRUCTION IMAGING ASS NEC 5110 PLEURISY 03-06-2014 [facility] WITHOUT [place]JANA MENTION EFFUS/CURRE NT TB 7197 DIFFICULTY 03-06-2014 [place] IN WALKING MEDICAL IMAGING ASS 01629 CONTUSION 03-06-2014 [facility] OF FOOT YOJANA 8488 OTHER 02-26-2014 [facility] SPECIFIED N EMERGENCY SITES OF PHYS SPRAINS AND STRAINS V141 PERSONAL 02-26-2014 [facility] MEM HOSP ALLERGY INC OTHER ANTIBIOTIC AGENT 34396 UNSPECIFIED 01-26-2014 [facility] EMERGENCY INFECTION PHYS IN CCE & UNS SITE 7245 UNSPECIFIED 01-26-2014 [facility] BACK[facility]HE N EMERGENCY PHYS 0091 COLITIS 01-04-2014 [facility] ENTERIT&GAS HOME TROENTERIT MEDICAL INF ORIGIN EQUIPME 436 ACUTE BUT 01-04-2014 [facility] ILL-DEFINED HOME MEDICAL CEREBROVASC EQUIPME ULAR DISEASE 7231 CERVICALGIA 10-24-2013 [facility] HOSP INC 3674 PRESBYOPIA 07-03-2013 [place] [facility] V431 LENS 07-03-2013 [place] REPLACED BY EYE OTHER INSTITUTE MEANS 7224 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-30-2013 [facility] [place] 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 07231 MACULAR 04-04-2013 [facility] DEGENERATIO DON N OF RETINA UNSPECIFIED 08813 STRABISMIC 03-22-2013 [place] [facility] AMBLYOPIA SERV FOUNDATIO 05368 OTHER 03-22-2013 [place] [facility] VITREOUS SERV OPACITIES FOUNDATIO 8052 CLOS FX 02-27-2013 [facility] DORS DON VERTEBRA W/O MENTION SP CORD INJURY 99335 LEUKOCYTOSI 02-23-2013 [facility] EMERGENCY UNSPECIFIED SERVICES V5878 AFTERCARE 02-23-2013 [facility] EMERGENCY SURGERY SERVICES [place]EL [place] N[place] 42481 ACUTE PAIN 02-22-2013 [facility] DUE TO EMERGENCY TRAUMA SERVICES 22752 PATHOLOGIC 02-22-2013 [place] FRACTURE OF ANESTHESIA VERTEBRAE GROUP PS V7283 OTHER 02-21-2013 [facility] [place] SPECIFIED RADIOLOGY PRE-OPERATI VE EXAMINATION 50995 DISPLCMT 02-20-2013 [place] LUMBAR MEDICAL INTERVERT IMAGING ASS DISC W/O MYELOPATHY 68717 SPINAL STEN 02-20-2013 [place] LUMB REG MEDICAL W/O IMAGING ASS NEUROGENIC CLAUDICATIO N E8888 OTHER FALL 02-20-2013 [facility] 6259 UNSPEC 02-15-2013 [place] SYMPTOM MEDICAL ASSOC IMAGING ASS W/FEMALE GENITAL ORGANS 7840 HEADACHE 02-15-2013 [place] [facility]ICAL [facility] 8470 NECK SPRAIN 02-15-2013 [facility] AND STRAIN EMERGENCY SERVICES 8472 LUMBAR 02-15-2013 [facility] SPRAIN AND EMERGENCY STRAIN SERVICES 8500 CONCUSSION 02-15-2013 [facility] WITH NO EMERGENCY LOSS OF SERVICES CONSCIOUSNE SS 9222 CONTUSION 02-15-2013 [facility] OF EMERGENCY ABDOMINAL SERVICES WALL 07320 CONTUSION 02-15-2013 [facility] OF HIP [facility] INC 06233 HEAD 02-15-2013 [place] INJURY, MEDICAL UNSPECIFIED IMAGING ASS V4364 HIP JOINT 02-15-2013 [place] REPLACEMENT MEDICAL BY OTHER IMAGING ASS MEANS 4659 ACUTE URIS 02-13-2013 [facility] OF DON UNSPECIFIED SITE 7804 DIZZINESS 02-13-2013 [facility] AND DON GIDDINESS 26493 PAIN IN 01-18-2013 [facility] JOINT, [facility] MULTIPLE INC SITES 86366 PAIN IN 01-17-2013 [facility] JOINT, DON LOWER LEG 9597 INJURY 01-17-2013 [facility] OTHER&UNSPE DON CIFIED KNEE LEG ANKLE&FOOT 00360 UNSPECIFIED 12-27-2012 [place] [address] METHICILLIN 12-23-2012 [facility] RESISTANT [facility] STAPHYLOCOC INC CUS AUREUS 80698 OTHER 12-23-2012 [facility] DISEASES OF [facility] NASAL INC CAVITY AND SINUSES 77478 NASAL 12-06-2012 [facility] MUCOSITIS DON ULCERATIVE 7078 CHRONIC 12-06-2012 [facility] ULCER OF MEM HOSP OTHER INC SPECIFIED SITE 3804 IMPACTED 08-03-2012 [facility] CERUMEN [place] 34961 CHRONIC 08-03-2012 [facility] FATIGUE DON SYNDROME 28879 OTHER 06-22-2012 [facility] CHRONIC DON PAIN 7873 FLATULENCE 06-17-2012 [facility] ERUCTATION DON AND GAS PAIN 70976 OTHER 06-03-2012 [facility] SPECIFIED DON TYPES OF CYSTITIS 4293 CARDIOMEGAL 05-14-2012 [facility] MEDICAL IMAGING ASS 91880 NONSPECIFIC 05-14-2012 [facility] EMERGENCY ELECTROCARD SERVICES IOGRAM V1090 PERSONAL 05-14-2012 [place]ICAL UNSPECIFIED IMAGING ASS MALIGNANT NEOPLASM V711 OBSERVATION 05-14-2012 [place] FOR MEDICAL SUSPECTED IMAGING ASS MALIGNANT NEOPLASM OTHER 04-28-2012 NEW MALIGNANT [facility] OF SPLEEN 3898 OTHER 02-17-2012 [facility] SPECIFIED DON FORMS OF HEARING LOSS 68454 GASTROJEJ 02-17-2012 [facility] ULCR UNS DON ACUT/CHRN W/O HEMOR PERF/OBST 63689 PAIN IN 01-06-2012 [facility] JOINT, SITE [facility] UNSPECIFIED 6160 CERVICITIS 12-16-2011 [place] AND MEDICAL ENDOCERVICI IMAGING ASS TIS 6203 ACQUIRED 12-16-2011 [place] ATROPHY OF MEDICAL OVARY AND IMAGING ASS FALLOPIAN TUBE 6219 UNSPECIFIED 12-16-2011 [place] DISORDER MEDICAL OF UTERUS IMAGING ASS 21573 OSTEOARTHRO 12-11-2011 [facility] S INVLV MX DON SITES BUT NOT SPEC GEN 32011 HEMATURIA 11-30-2011 [facility] UNSPECIFIED DON 36811 OTHER 11-30-2011 [facility] SPECIFIED DON DISORDERS OF URINARY TRACT 07039 UNSPECIFIED 10-19-2011 [facility] OTALGIA DON 25849 MUSCLE 10-19-2011 [facility] WEAKNESS DON (GENERALIZE D) 21713 DIVERTICULO 07-22-2011 [facility] SIS OF DON COLON 1104 DERMATOPHYT 07-10-2011 [facility] OSIS OF FOOT 9168 OTH&UNS SUP 07-07-2011 [facility] INJR HIP DON THI LEG&ANK W/O MENTION INF 9190 ABRASION/FR 06-26-2011 [facility] OTH MX&UNS SERVICES SITE W/O INF 5950 ACUTE 05-28-2011 NEW CYSTITIS [facility] 6929 CONTACT 05-22-2011 [facility] DERMATITIS& OTHER [facility] DUE UNSPEC CAUSE 7011 ACQUIRED 05-22-2011 [facility] KERATODERMA 15820 OTHER 04-20-2011 [facility] SPECIFIED DON CIRCULATORY SYSTEM DISORDERS 59605 CONTUSION 04-20-2011 [facility] MULTIPLE DON SITES SHOULDER&UP PER ARM 5952 OTHER 02-05-2011 [facility] CYSTITIS [facility] P 1129 CANDIDIASIS 01-07-2011 [facility] OF DON UNSPECIFIED SITE 4280 CONGESTIVE 01-07-2011 [facility] HEART DON FAILURE UNSPECIFIED 2768 HYPOPOTASSE 12-31-2010 [facility] 8910 OPEN WOUND 10-22-2010 [facility] KNEE DON LEG&ANK WITHOUT MENTION COMP V5832 ENCOUNTER 10-22-2010 [facility] FOR REMOVAL DON OF SUTURES 25916 PHACOLYTIC 08-06-2010 [facility] 4618 OTHER ACUTE 07-29-2010 [facility] SINUSITIS DON 1880 MALIGNANT 06-26-2010 [place] [facility]OP[facility] OF H [facility] URINARY BLADDER 17427 SPASM OF 06-06-2010 [facility] MUSCLE DON 72461 DEGEN 05-04-2010 [facility] LUMBAR/LUMB EMERGENCY [facility] [employer] RAL DISC OTHER MALIG 04-22-2010 [facility] [place] [facility] MULTIPLE SITES V6709 FOLLOW-UP 01-17-2010 [place] [facility] EXAMINATION AND HAND FOLLOWING SURGEONS OTHER [facility] SURGERY 6256 FEMALE 01-13-2010 [facility], STRESS DON R INCONTINENC E V7651 SPECIAL 01-13-2010 [facility], SCREENING DON R FOR MALIGNANT NEOPLASMS COLON 1629 MALIGNANT 09-09-2009 [place] NEOPLASM MEDICAL [facility] SITE 4148 OTHER SPEC 08-30-2009 ARAMBULA, FORMS DON R CHRONIC ISCHEMIC HEART DISEASE 8208 CLOSED 08-30-2009 ARAMBULA, FRACTURE DON R UNSPECIFIED PART NECK FEMUR 25072 POSTPROCEDU 08-21-2009 [facility] PROF SERV 77038 OTHER 08-20-2009 PATHOLOGY & CLOSED CYTOLOGY TRANSCERVIC LAB AL FRACTURE OF FEMUR 12371 INF DUE OTH 08-19-2009 [facility] GM-NEGATIVE INC ORGANISMS CCE & UNS SITE 02061 ABDOMINAL 08-19-2009 [facility] OTHER EMERGENCY SPECIFIED SERVICES SITE ASSOCIATES 11785 CLOSED 08-19-2009 [facility] DISLOCATION AMBULANCE OF HIP SERVICE UNSPECIFIED SITE 9596 INJURY 08-19-2009 [facility] OTHER AND AMBULANCE UNSPECIFIED SERVICE HIP AND THIGH E8859 FALL FROM 08-19-2009 [place] OTHER EMERGENCY SLIPPING SERVICES TRIPPING OR ASSOCIATES STAMY 70474 UNSPECIFIED 08-14-2009 [facility] V0382 NEED PROPH 07-31-2009 TYESHA, VACCINATION DON R AGAINST STREP PNEUMONE 87066 SPRAIN AND 06-10-2009 TYESHA, STRAIN OF DON R UNSPECIFIED SITE OF WRIST 63337 UNSPECIFIED 06-10-2009 T[facility] SITE OF DON R ANKLE SPRAIN AND STRAIN E8490 PLACE OF 06-07-2009 [place] [facility] E8844 ACCIDENTAL 06-07-2009 [facility] FALL FROM [facility] BED SERVICES [facility] 68284 SECONDARY 09-19-2008 [facility] EDEMA F[facility] 75046 SPONDYLOSIS 08-22-2008 NEW [facility]PEC [place] [facility] PSC MENTION MYELOPATHY V1072 PERSONAL 08-22-2008 NEW HISTORY OF [place] PSC DISEASE 61806 ATRIAL 07-01-2008 [facility] N 69080 ABDOMINAL/P 07-01-2008 [facility] SWELLING MASS/LUMP UNSPEC SITE 35134 UNSPECIFIED 03-02-2008 REM[facility] ARAMBULA OSTEOPOROSI S Procedures Procedure DOS Code Location Performer Comment REPLACEME [id number] O[facility] SALCIDO NT LT HIP 6 MEM [...] O[facility] - 7 7 [facility] ACCESS 7 7 [facility] O[facility] - OTHER 7 7 [facility] - OTHER 7 7 [facility] - 7 7 [facility] - 7 7 [facility] - 7 7 [facility] - 7 7 [facility] - 7 7 [facility] - 7 7 [facility] - 7 7 [facility] - 7 7 [facility] - 7 7 [facility] - 7 7 [facility] - 7 7 [facility] - 7 7 [facility] - 7 7 [facility] - OTHER 7 7 [facility] - 7 7 [facility] 6 6 [facility] 6 6 [facility]MAR[facility] - 6 6 [facility] 6 6 [facility] - 6 6 [facility] - 6 6 [facility] - 6 6 [facility] - 6 6 [facility] - 5 5 [facility] - 5 5 [facility] - OTHER 5 5 [facility] - OTHER 5 5 [facility] - 5 5 [facility] - 5 5 [facility] - 5 5 [facility] - OTHER 5 5 [facility] - OTHER 5 5 [facility] - OTHER 5 5 [facility] - 5 5 [facility] - OTHER 5 5 [facility] - 4 4 [facility] - 4 4 [facility] - 4 4 [facility]ITICAL [facility] ACCESS 4 4 [facility] - OTHER 4 4 [facility] - 4 4 [facility] - OTHER 4 4 [facility] - 4 4 [facility] - 4 4 [facility] - 4 4 [facility] - OTHER 4 4 [facility] - 3 3 [facility] - 3 3 [facility] - 3 3 [facility] - 3 3 [facility] - 3 3 [facility] - 3 3 [facility] - 3 3 [facility] - 3 3 [facility] - 3 3 [facility] - 3 3 [facility] - 3 3 [facility] - 3 3 [facility] - 3 3 [facility] - 3 3 [facility] - 3 3 [facility] - 2 2 [facility] - 2 2 [facility] - 2 2 [facility] - 2 2 [facility] - 1 1 [facility] - 1 1 [facility] - 1 1 [facility] - 0 0 [facility] - 0 0 [facility] - 0 0 [facility] - 0 0 [facility] - 0 0 [facility] - 0 0 [facility] - 9 9 [facility] - 9 9 [facility] - 9 9 [facility] - 9 9 [facility] - 9 9 [facility] [place] [id number] 8 [facility] 8 [facility]
--- OUTSIDE RECORDS SUMMARY | 2017-10-11 13:53 | External Medical Summary Rpt | CCD ---
Demographics Preferred Language Japanese Marital Status Unknown Religion Affiliation Unknown Race Unknown Ethnic Group Unknown Author Author , KARLIE ZIEGLER Address Unknown Phone Immunization No patient found.
--- OUTSIDE RECORDS SUMMARY | 2017-10-11 13:53 | External Medical Summary Rpt | CCD ---
Demographics Preferred Language Slovenian Marital Status Unknown Caodaism Affiliation Unknown Race Unknown Ethnic Group Unknown Author Author , KARLIE ZIEGLER Address Unknown Phone Immunization No patient found.
[2017-10-11] MEDS ORDERED: BISOPROLOL 5MG T5 MG PO (15:27)
--- NOTE | 2017-10-11 15:49 | PHARMACY CLINIC NOTE ---
Patient Demographics Patient Demographics Admission date: 10/11/17 Date: 10/11/17 Time: 1548 Allergies Coded Allergies: Penicillins (I-HIVES 04/20/17) Sulfa (Sulfonamide Antibiotics) (NA-NAUSEA/VOMITING 04/20/17) cephalexin (From KEFLEX) (NA-NAUSEA/VOMITING 04/20/17) ciprofloxacin (From CIPRO) (NA-NAUSEA/VOMITING 04/20/17) codeine (NA-NAUSEA/VOMITING 04/20/17) fexofenadine (From SALVADOR) (NA-NAUSEA/VOMITING 04/20/17) morphine (CONFUSION 04/20/17) promethazine (From PHENERGAN) (04/20/17) HEIGHT- FT: 5 IN: 0.00 K.225 VTE General Information Labs: Laboratory Tests 10/11 1109 Hematology Hgb (12.2 - 16.2 g/dL) 11.3 L Hct (37.0 - 47.0 %) 34.7 L Plt Count (142 - 424 K/mm3) 264 Disclaimer The following section includes nursing documentation that has been pulled in for pharmacy review. Clinical trial participant? Yes VTE prophylaxis NQF [id number] VTE prophylaxis ordered? Yes Type of prophylaxis/treatment: STEPHEN at 8341
[2017-10-11 16:00] VITALS: BP 147/67
[2017-10-11 16:06] VITALS: BP 147/67
[2017-10-11 16:41] VITALS: BP 147/67
--- NOTE | 2017-10-11 16:42 | RADIOLOGY REPORT PS360 ---
CHEST-PORTABLE HISTORY: MARTY SIM ORDERING PHYSICIAN: Ananth Stark MD PATIENT AGE: 87 years COMPARISON: 08/31/2017 FINDINGS: There is cardiomegaly without failure. RV pacemaker remains in place. There is chronic blunting of the right CP angle. No lobar consolidation or collapse. Post kyphoplasty changes in the lower thoracic spine. IMPRESSION: Cardiomegaly with pacemaker. No change with no acute finding
[2017-10-11 19:30] VITALS: BP 146/61
--- NOTE | 2017-10-11 21:15 | HISTORY AND PHYSICAL REPORT ---
Demographics: Admit date: 10/11/17 Chief complaint: Weakness and dyspnea PRIMARY DIAGNOSIS: UTI Allergies: Coded Allergies: Penicillins (I-HIVES 04/20/17) Sulfa (Sulfonamide Antibiotics) (NA-NAUSEA/VOMITING 04/20/17) cephalexin (From KEFLEX) (NA-NAUSEA/VOMITING 04/20/17) ciprofloxacin (From CIPRO) (NA-NAUSEA/VOMITING 04/20/17) codeine (NA-NAUSEA/VOMITING 04/20/17) fexofenadine (From SALVADOR) (NA-NAUSEA/VOMITING 04/20/17) morphine (CONFUSION 04/20/17) promethazine (From PHENERGAN) (04/20/17) History of present illness: History of present illness: 87-year-old white female who recently has had some bronchitis-type episodes and CT scan of her abdomen and pelvis because of hematuria, who was brought to the [facility] department by her family because of weakness. In the emergency part and she was found to have a significant urinary tract infection, and because of failed outpatient therapy given previous antibiotic exposure and her leukocytosis she was admitted to hospital for IV antibiotics. She feels somewhat better after several hours of IV fluids and one dose of IV antibiotics. Continues to feel tired Past medical history: Family HX Diabetes No CAD Yes Hypertension Yes Hyperlipidemia Yes Cancer Yes TB No Immunization HX Ped.Immunizations UTD No DT/Tetanus Unknown Flu 2017-18FSN Pneumonia Received In Past TB Test in last year No General CAD? Yes Angina: Yes [place]: Yes Hypertension? Yes Hyperlipidemia? Yes CHF? No DVT? Yes PE? No COPD? No Asthma? Yes Anemia? No GERD? Yes Gastric ulcers? No GI Bleed? No Hernia? Yes Thyroid Problems? No Hypothyroidism? No CVA? Yes Seizures? No Diabetes? No Insulin Dependent: No Insulin Pump: No Home FSBS? No Renal Insuffiency? No UTI? Yes Stones? No BPH? No GB Disease: Yes Nephritic Syndrome? No Asplenia? No Hepatitis? No Sickle Cell Disease? No Arthritis? Yes Migraines? Yes Cataracts? Yes Glaucoma? No MRSA? Yes HIV? No TB? No Anxiety? Yes Depression? 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 Past Surgical HX Previous Surgery?Y BACK SURGERY [facility] KNEE REPLACEMENT CHOLECYSTECTOMY Appendix HEART CATH 2008 ROTATOR CUFF REPAIR LEFT CATARACT REMOVAL [facility] Spleen REMOVED OOPHRECTOMY/SALPINGECTIOM BILAT HIP BACK-COMPRESSION FX Pacemaker placed 04/20/17 Current home meds: Active Scripts Furosemide (Furosemide 40MG Tablet) 40 MG PO DAILY PRN DIURETIC #30 TABLET Ref 5 Prov: 08/14/17 Metoclopramide Hcl (Reglan) 5 MG PO AC #28 TAB Ref 1 Prov: 08/12/17 Citalopram Hydrobromide (Citalopram HBr) 40 MG PO DAILY #30 TAB Ref 5 Prov: 05/11/14 Sucralfate (Carafate) 1 GM PO AC #90 TAB Ref 1 Prov: 06/24/15 Reported Medications Dexlansoprazole (Dexilant) 60 MG PO DAILY BISOPROLOL FUMARATE (Bisoprolol 5MG) 5 MG PO DAILY Ondansetron (Zofran 8MG Odt) 8 MG PO Q8HP NITROGLYCERIN (Nitrostat) 0.4 MG SL [id number] PRN CHEST PAIN Loratadine (Claritin 10MG) 10 MG PO DAILY OXYCODONE 7.5MG/[id number] (Oxycodon-Acetaminophen 7.5-325) 1 TAB PO Q6HP PRN PAIN MANAGEMENT Lorazepam (Lorazepam 1MG) 1 MG PO BID Fluticasone/Vilanterol (Breo Ellipta 200-25 Mcg INH) 1 EACH IH DAILY Social Hx: Smoking HX Tobacco No Packs/day N/A Are you/the child exposed to second-hand smoke: Yes Alcohol Alcohol: No Hx of Drug Use Drug Use? No Patien't marital status is single Patient's support system is good Review of systems: Constitutional fever, malaise, weakness. Respiratory cough. Cardiovascular No chest pain, No edema, No palpitations Gastrointestinal/Abdominal nausea, poor appetite, poor fluid intake, No rectal bleeding, No vomiting Genitourinary see HPI. Musculoskeletal back pain. Neurological Yes: weakness. No: numbness, tingling, tremors. Exam: Lab data for last 24 hours: Laboratory Tests 10/11/17 1110: Urine Color YELLOW, Urine Appearance CLEAR, Urine pH 6.0, Ur Specific [place] 1.020, Urine Protein 2+ H, Urine Ketones TRACE H, Urine Blood 3+ H, Urine Nitrate POSITIVE H, Urine Bilirubin 1+ H, Urine Urobilinogen 2.0, Ur Leukocyte Esterase 3+ H, Urine RBC NONE, Urine WBC TNTC, Ur Squamous Epith Cells OCC, Urine Bacteria 2+, Urine Glucose NEGATIVE 10/11/17 1109: Lactic Acid 1.9 10/11/17 1109: Sodium 140, Potassium 4.2, Chloride 103, Carbon Dioxide 29, BUN 13, Creatinine 0.9, Estimated Creat Clear 45 L, Estimated GFR (MDRD) 59, Glucose 108 H, Calcium 8.6, Total Bilirubin 0.7, AST 20, ALT 20, Alkaline Phosphatase 100, Creatine Kinase 18 L, CK-MB (CK-2) Rel Index 2.8, CK and CKMB Interp < 0.5, Troponin I < 0.02, B-Natriuretic Peptide 1070 H, Total Protein 6.7, Albumin 3.1 L, Globulin 3.6 H, Albumin/Globulin Ratio 0.9 L, WBC 15.5 H, RBC 3.45 L, Hgb 11.3 L, Hct 34.7 L, MCV 100.4 H, RDW 13.0, Plt Count 264, MPV 9.1, Gran % 79.3, Gran # 12.3 H, Total Counted 100, Lymphocytes % 12.7, Monocytes % 6.4, Eosinophils % 1.0, Basophils % 0.6, Neutrophils 75, Band Neutrophils 1, Lymphocytes (Manual) 17, Lymphocytes # 2.0, Monocytes (Manual) 7, Monocytes # 1.0, Eosinophils # 0.2, Basophils # 0.1, Platelet Estimate NORMAL, PUBS MCHC 32.7, MCH 32.8 H Microbiology 10/11 1110 URINE CC: Urine Culture - RECD 10/11 1109 BLOOD: Anaerobic Blood Culture - RECD 10/11 1109 BLOOD: Aerobic Blood Culture - RECD 10/11 1109 BLOOD: Anaerobic Blood Culture - RECD 10/11 1109 BLOOD: Aerobic Blood Culture - RECD Admission vital signs: 1ST Vital Signs Result Date Time Pulse Ox 98 10/11 1056 B/P 160/68 10/11 1056 Temp 97.8 10/11 1056 Pulse 79 10/11 1056 Resp 22 10/11 1056 O2 Delivery ROOM AIR 10/11 1600 Additional information: patient is alert, oriented x3. Appears dehydrated. Poor skin turgor, dry oral mucosa. Lungs have rhonchi but these are scattered and clear with a deep breath. Abdomen is soft. She has minimal suprapubic tenderness but no rebound or guarding. No CVA tenderness. Heart rate is regular without murmurs. She has dry skin turgor and no ankle edema. Plan: Problem List 1. Urinary tract infection Plan: Given failure of outpatient therapy we will admit for IV antibiotics. Her allergy panel is troubling, we will choose aztreonam for initial therapy for gram-negative coverage, await sensitivity report at 2572
[2017-10-12 03:36] VITALS: BP 152/67
[2017-10-12 06:34] LABS: HEMOGLOBIN 11.5 g/dL (12.2-16.2); LYMPH # 2.6 K/mm3 (0.7-4.5)
[2017-10-12 08:00] VITALS: BP 168/73
--- NOTE | 2017-10-12 08:03 | ACUTE CARE PROGRESS NOTE (QUA) ---
Progress Notes Subjective Date 10/12/17 Time 0720 Note Patient reports "I feel weak. I didn't get any sleep last night." States she had diarrhea "all night." Reports nausea, no vomiting. No mucous or blood in stool. Denies any recent outpatient antibiotic use. Alert and oriented x3. Rate and rhythm regular. 1+ BLE edema. Pulses 2+. Lung sounds with faint crackles LLL. Abdomen soft, non-tender. Normoactive bowel sounds. Patient/family reports: diarrhea Nursing reports: no complaints Objective Findings Last VS-Temp:98.3 B/P:152/67 Pulse:78 Resp:18 SaO2:91 ROOM AIR Last weight lbs:139 oz:7 K.248 Method:Bed Scales Reviewed: medications, vital signs, lab results Assessment/Plan Problem List 1. Urinary tract infection Assessment/Plan: Continue IV antibiotics. Urine and blood cultures pending. Qualifiers: Urinary tract infection type: acute cystitis Hematuria presence: without hematuria Qualified Code: N30.00 - Acute cystitis without hematuria 2. Diarrhea Assessment/Plan: Obtain diarrhea PCR today. Will evaluate and treat as indicated. 3. Generalized weakness Assessment/Plan: PT/OT consult. Patient condition Stable Plan: continue current care This inpt stay is expected to cross 2 MNs from start of care Yes at 0821
[2017-10-12 09:44] VITALS: BP 168/73
[2017-10-12 15:41] VITALS: BP 149/63
[2017-10-12 19:35] VITALS: BP 149/72
[2017-10-12 19:50] VITALS: BP 149/72
[2017-10-13 03:54] VITALS: BP 162/63
[2017-10-13 08:00] VITALS: BP 152/93
--- NOTE | 2017-10-13 08:06 | DISCHARGE SUMMARY STANDARD ---
Demographics Admit date: 10/11/17 Discharge date: 10/13/17 History of present illness History of present illness 87-year-old white female who recently has had some bronchitis-type episodes and CT scan of her abdomen and pelvis because of hematuria, who was brought to the [facility] department by her family because of weakness. In the emergency part and she was found to have a significant urinary tract infection, and because of failed outpatient therapy given previous antibiotic exposure and her leukocytosis she was admitted to hospital for IV antibiotics. She feels somewhat better after several hours of IV fluids and one dose of IV antibiotics. Continues to feel tired Hospital Course Hospital Course: Admtted to [facility]. IVF and meds given for uti -- aztreonam given her allergies. Culture showed E Coli pansensitive to most abx. She improved, although complained of insomnia in hospital. PT evaluated patient and felt she was safe to return home without assistance. This AM exam improved. RRR, lungs clear - abd soft. No edema and no neuro deficits. Plan to d/c home - PO macrobid and short term f/u with Dr. Nath. Discharge diagnoses Problem List 1. Urinary tract infection 2. Diarrhea 3. Generalized weakness Medications Medications: Discharge meds are as noted. Follow up Follow up in office in: 2 DAYS with: Maury Nath MD at 0805
--- NOTE | 2017-10-13 08:06 | DISCHARGE SUMMARY STANDARD ---
Demographics Admit date: 10/11/17 Discharge date: 10/13/17 History of present illness History of present illness 87-year-old white female who recently has had some bronchitis-type episodes and CT scan of her abdomen and pelvis because of hematuria, who was brought to the [facility] department by her family because of weakness. In the emergency part and she was found to have a significant urinary tract infection, and because of failed outpatient therapy given previous antibiotic exposure and her leukocytosis she was admitted to hospital for IV antibiotics. She feels somewhat better after several hours of IV fluids and one dose of IV antibiotics. Continues to feel tired Hospital Course Hospital Course: Admtted to [facility]. IVF and meds given for uti -- aztreonam given her allergies. Culture showed E Coli pansensitive to most abx. She improved, although complained of insomnia in hospital. PT evaluated patient and felt she was safe to return home without assistance. This AM exam improved. RRR, lungs clear - abd soft. No edema and no neuro deficits. Plan to d/c home - PO macrobid and short term f/u with Dr. Nath. Discharge diagnoses Problem List 1. Urinary tract infection 2. Diarrhea 3. Generalized weakness Medications Medications: Discharge meds are as noted. Follow up Follow up in office in: 2 DAYS with: Maury Nath MD at 0805
[2017-10-13] MEDS ORDERED: MACROBID100 M3 PO (08:07)
[2017-10-13 08:45] VITALS: BP 152/93
[2017-10-18] MEDS ORDERED: LEVAQUIN250 M1 PO (19:08)
[2017-10-19] MEDS ORDERED: ESCITALOPRAM 2020 MG PO (10:22)
[2017-10-20] MEDS ORDERED: LISINOPRIL5 MG PO (08:02)
== END 2017-10-13 10:30 | disposition home or self-care (01) ==
LOC: ER 10:44 → 2ND 13:35
PROVIDERS: Emergency Medicine
DX: N39.0 Urinary tract infection, site not specified (principal); I25.10 Atherosclerotic heart disease of native coronary artery without angina pectoris; I25.2 Old myocardial infarction; I10 Essential (primary) hypertension; J45.909 Unspecified asthma, uncomplicated; R19.7 Diarrhea, unspecified; R53.1 Weakness; Z88.1 Allergy status to other antibiotic agents; Z88.3 Allergy status to other anti-infective agents; Z88.5 Allergy status to narcotic agent; Z88.0 Allergy status to penicillin; Z88.2 Allergy status to sulfonamides; Z88.8 Allergy status to other drugs, medicaments and biological substances; Z82.49 Family history of ischemic heart disease and other diseases of the circulatory system; Z83.49 Family history of other endocrine, nutritional and metabolic diseases; Z80.9 Family history of malignant neoplasm, unspecified; Z86.718 Personal history of other venous thrombosis and embolism; Z86.73 Personal history of transient ischemic attack (TIA), and cerebral infarction without residual deficits; Z85.72 Personal history of non-Hodgkin lymphomas; Z90.81 Acquired absence of spleen; Z95.0 Presence of cardiac pacemaker; Z79.51 Long term (current) use of inhaled steroids; Z79.899 Other long term (current) drug therapy; Z87.891 Personal history of nicotine dependence
CPT/HCPCS: G0378; J2405